=== PATIENT | male | born 1975 | race Two or more races ===

== ENCOUNTER 2021-02-15 14:27 | Emergency (ER) | payer MEDICAID, SELFPAY ==
--- NOTE | ~2021-02-15 | XR_ITS ---
EXAMINATION: XR ABDOMEN KUB CLINICAL INDICATION: Low suspicion free air. COMPARISON: None TECHNIQUE: AP views of the abdomen. FINDINGS: Nonobstructive bowel gas pattern. Mild air and stool throughout the colon. In the right upper quadrant/right lung base there is a 0.4 cm metallic density. Findings may be outside the patient or represent a foreign body. No acute osseous abnormality. XR/XR KUB IMPRESSION: Nonobstructive bowel gas pattern. Mild air and stool throughout the colon. 0.4 cm metallic density overlying the right upper quadrant/right lung base. Findings may be outside the patient or represent a foreign body.
--- NOTE | ~2021-02-15 | US_ITS ---
EXAMINATION: US ABDOMEN LIMITED CLINICAL INFORMATION: Right upper quadrant and epigastric pain. COMPARISON: Abdominal radiograph done earlier the same day. TECHNIQUE: Real-time imaging of the right upper quadrant abdominal viscera. FINDINGS: PANCREAS: Normal. LIVER: Normal. The liver is normal in size. The liver contour is normal. Parenchymal echogenicity is normal. No focal hepatic lesion. There is no intrahepatic biliary duct dilatation seen. GALLBLADDER: Normal. The gallbladder is physiologically distended without evidence of stones, sludge, polyps, wall thickening or pericholecystic fluid. COMMON BILE DUCT: Normal in caliber measuring 0.3 cm in diameter. RIGHT KIDNEY: Normal. No hydronephrosis. No renal calculi or focal parenchymal lesions. The kidney measures 11.2 cm in maximum dimension. FREE FLUID: None. US/US abdomen limited IMPRESSION: Unremarkable examination.
[2021-02-15 15:22] VITALS: BP 163/86; PULSE 79; RESP 18; TEMP 36.9; O2SAT 100; BMI 22.4
[2021-02-15 16:32] LABS: MANUAL DIFF FLAG NO
[2021-02-15 16:41] LABS: Basophils Percent Auto 0.4 % (0-2); Eosinophils Percent Auto 0.1 % (0-4); Hematocrit 48.2 % (42-52); Hemoglobin 16.6 g/dl (14.0-18.0); Imm Gran Abs Auto 0.03 X10*3/uL (0.00-0.03); Imm Gran Pct Auto 0.4 % (0.0-0.4); Lymphocytes Absolute Auto 1.8 X10*3/uL (1.2-4.9); Lymphocytes Percent Auto 23.4 % (20-40); Mean Corpuscular HGB Conc 34.4 g/dl (31.0-36.0); Mean Corpuscular Hemoglobin 32.2 pg (27.0-33.0); Mean Corpuscular Volume 93.4 fL (80-98); Mean Platelet Volume 9.5 fL (9.4-12.4); Monocytes Absolute Auto 0.8 X10*3/uL (0.1-1.2); Monocytes Percent Auto 10.2 % (2-11); Neutrophils Absolute Auto 4.9 X10*3/uL (2.0-8.3); Neutrophils Percent Auto 65.5 % (45-73); Platelet Count 289 X10*3/uL (160-400); Red Blood Count 5.16 X10*6/uL (4.60-5.80); Red Cell Distribution Width 13.2 % (11.0-16.0); White Blood Count 7.5 X10*3/uL (4.8-10.8)
[2021-02-15 16:58] LABS: Alanine Aminotransferase 18 U/L (0-40); Albumin Level 4.7 g/dL (3.5-5.0); Alkaline Phosphatase 76 U/L (39-117); Anion Gap 13 (12-20); Aspartate Amino Transferase 14 U/L (5-37); Bilirubin Direct 0.5 mg/dL (0.0-0.5); Bilirubin Total 1.5 mg/dL (0.0-1.0); Blood Urea Nitrogen 11 mg/dL (9-16); Carbon Dioxide 28 mmol/L (22-29); Chloride 102 mmol/L (96-108); Creatinine Clr Calc Pharmacy 123.4; Estimated Glomerular Filt Rate > 60; Glucose Random 127 mg/dL (60-115); Lipase 23 U/L (8-78); Potassium 4.5 mmol/L (3.3-5.1); Sodium 138 mmol/L (135-145); Total Protein 7.9 g/dL (6.5-8.0)
--- NOTE | 2021-02-15 19:56 | ECG_ITS ---
Test Reason : ABDOMINAL PAIN Blood Pressure : / mmHG Vent. Rate : 067 BPM Atrial Rate : 067 BPM P-R Int : 122 ms QRS Dur : 094 ms QT Int : 358 ms P-R-T Axes : 062 042 008 degrees QTc Int : 378 ms Normal sinus rhythm Nonspecific T wave changes borderline ECG When compared to the previous EKG of No significant changes seen Referred By: Cha Sandoval Electronically Signed By:Jordan Ramírez
[2021-02-15 20:00] VITALS: BP 142/78; PULSE 78; RESP 18; TEMP 36.3; O2SAT 99
--- NOTE | 2021-02-15 20:05 | ED_ITS ---
HPI - Nausea/Vomiting/Diarrhea General Chief complaint: Nausea/Vomiting/Diarrhea Stated complaint: VOMITING Time Seen by Provider: 02/15/21 19:55 Source: patient Mode of arrival: ambulatory Limitations: no limitations History of Present Illness HPI Narrative: Patient comes emergency room complaining of epigastric burning sensation radiating towards the upper chest and right upper quadrant pain. Patient states he has had this condition for 20+ years. However, over last few days, every time he eats something he vomits immediately. Patient reports 15 lb weight loss within a month. Patient denies diarrhea, no fever chills, no blood or black stool. Patient states that he is not taking treatment for gastritis /peptic ulcer. MD elicited complaint: nausea Related Data Previous Rx's Medication Instructions Recorded omeprazole 20 mg PO DAILY #20 cap 02/15/21 Allergies Allergy/AdvReac Type Severity Reaction Status Date / Time No Known Allergies Allergy Verified 02/15/21 15:21 Review of Systems Review of Systems: Constitutional : No Weight loss, No Fever, No Chills, No Night Sweats, No Fatigue, No Malaise ENT/Mouth : No Hearing loss, No Ear Pain, No Nasal Congestion, No Sinus Pain, No Hoarseness, No sore throat, No Rhinorrhea, No Swallowing Difficulty Eyes: No Eye Pain, No Swelling, No Redness, No Foreign Body, No Discharge, No Vision Changes Cardiovascular : No Chest Pain, No SOB, No Dyspnea on Exertion, No Orthopnea, No Edema, No Palpitations Respiratory : No Cough, No Sputum, No Wheezing, No Smoke Exposure, No Dyspnea Gastrointestinal : Complaining of nausea and vomiting, No Diarrhea, No Constipation, complaining of epigastric and right upper quadrant pain, No Hematochezia, No Melena Genitourinary : no irregular bleeding, No Dysuria, No Urinary Frequency, No Hematuria, No Urinary Incontinence, No Urgency, No Flank Pain, No Urinary Flow Changes, No Hesitancy Musculoskeletal : No joint pain, No Myalgias, No Joint Swelling Skin : No Skin Lesions, No rash Neuro : No Weakness, No Numbness, No Paresthesias, No Loss of Consciousness, No Dizziness, No Headache Psych : No Anxiety/Panic, No Depression, No SI/HI/AH/VH, No Social Issues, Heme/Lymph: No Bruising, No Bleeding,No Lymphadenopathy Endocrine : No Polyuria, No Polydipsia, No Temperature Intolerance PMFSH Past Medical History Medical History Patient denies medical problems Social History Social History Advance Directives: No Advance Directives Information Provided: No Physical Exam Vital Signs: Vital Signs: Last Vital Signs Temp 98.4 F 02/15/21 15:22 Pulse 79 02/15/21 15:22 Resp 18 02/15/21 15:22 BP 163/86 H 02/15/21 15:22 Pulse Ox 100 02/15/21 15:22 Body Mass Index 22.4 Appearance: Alert. Oriented X3. No acute distress. Eyes: Pupils equal, round and reactive to light. ENT: Pharynx normal. Neck: Normal inspection. Neck supple. No lymph nodes noted. No crepitus CVS: Normal heart rate and rhythm. Pulses normal. Normal S1 and S2 Respiratory: No respiratory distress. Breath sounds normal. No Wheezing. No rales Abdomen: Soft , tenderness to palpation over epigastric area and right upper quadrant, No rigidity. No distention. Skin: Skin warm and dry. Normal skin color. Normal skin turgor. Extremities: No lower extremity edema. No lower extremity edema. No Lacerations. No Rash Neuro: Oriented X 3. No motor deficit. No sensory deficit. Moving all ext ermities. No slurred speech. Course Course Course Narrative: Patient feeling better, no longer having epigastric pain. KUB and ultrasound negative, labs do not show any acute pathology. I discussed with the patient that he will be started on omeprazole, if patient continues having symptoms, he may benefit from a GI consult, upper endoscopy may be needed. Also, patient may benefit from a urea breath test MDM - Nausea/Vomiting/Diarrhea Lab Data Result diagrams: 02/15/21 16:26 02/15/21 16:26 Labs: Lab Results 02/15/21 02/15/21 02/15/21 Range/Units 16:26 16:26 16:31 WBC 7.5 (4.8-10.8) X10*3/uL RBC 5.16 (4.60-5.80) X10*6/uL Hgb 16.6 (14.0-18.0) g/dl Hct 48.2 (42-52) % MCV 93.4 (80-98) fL MCH 32.2 (27.0-33.0) pg MCHC 34.4 (31.0-36.0) g/dl RDW 13.2 (11.0-16.0) % Plt Count 289 (160-400) X10*3/uL MPV 9.5 (9.4-12.4) fL Immature Gran % (Auto) 0.4 (0.0-0.4) % Neut % (Auto) 65.5 (45-73) % Lymph % (Auto) 23.4 (20-40) % [place] % (Auto) 10.2 (2-11) % Eos % (Auto) 0.1 (0-4) % Baso % (Auto) 0.4 (0-2) % Lymph # (Auto) 1.8 (1.2-4.9) X10*3/uL [place] # (Auto) 0.8 (0.1-1.2) X10*3/uL Eos # (Auto) 0.0 (0.0-0.4) X10*3/uL Baso # (Auto) 0.0 (0.0-0.2) X10*3/uL Abs Immat Gran (auto) 0.03 (0.00-0.03) X10*3/uL Absolute Neuts (auto) 4.9 (2.0-8.3) X10*3/uL Absolute Nucleated RBC 0.000 (0.0-0.012) X10*3/uL Nucleated RBC % (auto) 0.0 (0.0-0.2) /100WBC Sodium 138 (135-145) mmol/L Potassium 4.5 (3.3-5.1) mmol/L Chloride 102 (96-108) mmol/L Carbon Dioxide 28 (22-29) mmol/L Anion Gap 13 (12-20) BUN 11 (9-16) mg/dL Creatinine 0.80 (0.5-1.4) mg/dL Estim Creat Clear Calc 123.4 Estimated GFR > 60 Random Glucose 127 H (60-115) mg/dL Calcium 10.0 (8.4-10.2) mg/dL Total Bilirubin 1.5 H (0.0-1.0) mg/dL Direct Bilirubin 0.5 (0.0-0.5) mg/dL AST 14 (5-37) U/L ALT 18 (0-40) U/L Alkaline Phosphatase 76 (39-117) U/L Troponin I High Sens < 3.5 (<3.5-35.0) ng/L Total Protein 7.9 (6.5-8.0) g/dL Albumin 4.7 (3.5-5.0) g/dL Lipase 23 (8-78) U/L Urine Color Urine Appearance Urine pH (5.0-8.0) Ur Specific [place] (1.005-1.025) Urine Protein (NEG-TRACE) MG/DL Urine Glucose (UA) (NEG) MG/DL Urine Ketones (NEG) MG/DL Urine Blood (NEG) Urine Nitrite (NEG) Ur Leukocyte Esterase (NEG) Urine RBC (0) /HPF Urine WBC (0-4) /HPF Ur Squamous Epith Cells /LPF Urine Bacteria /LPF 02/15/21 Range/Units 20:47 WBC (4.8-10.8) X10*3/uL RBC (4.60-5.80) X10*6/uL Hgb (14.0-18.0) g/dl Hct (42-52) % MCV (80-98) fL MCH (27.0-33.0) pg MCHC (31.0-36.0) g/dl RDW (11.0-16.0) % Plt Count (160-400) X10*3/uL MPV (9.4-12.4) fL Immature Gran % (Auto) (0.0-0.4) % Neut % (Auto) (45-73) % Lymph % (Auto) (20-40) % [place] % (Auto) (2-11) % Eos % (Auto) (0-4) % Baso % (Auto) (0-2) % Lymph # (Auto) (1.2-4.9) X10*3/uL [place] # (Auto) (0.1-1.2) X10*3/uL Eos # (Auto) (0.0-0.4) X10*3/uL Baso # (Auto) (0.0-0.2) X10*3/uL Abs Immat Gran (auto) (0.00-0.03) X10*3/uL Absolute Neuts (auto) (2.0-8.3) X10*3/uL Absolute Nucleated RBC (0.0-0.012) X10*3/uL Nucleated RBC % (auto) (0.0-0.2) /100WBC Sodium (135-145) mmol/L Potassium (3.3-5.1) mmol/L Chloride (96-108) mmol/L Carbon Dioxide (22-29) mmol/L Anion Gap (12-20) BUN (9-16) mg/dL Creatinine (0.5-1.4) mg/dL Estim Creat Clear Calc Estimated GFR Random Glucose (60-115) mg/dL Calcium (8.4-10.2) mg/dL Total Bilirubin (0.0-1.0) mg/dL Direct Bilirubin (0.0-0.5) mg/dL AST (5-37) U/L ALT (0-40) U/L Alkaline Phosphatase (39-117) U/L Troponin I High Sens (<3.5-35.0) ng/L Total Protein (6.5-8.0) g/dL Albumin (3.5-5.0) g/dL Lipase (8-78) U/L Urine Color YELLOW Urine Appearance CLEAR Urine pH 6.5 (5.0-8.0) Ur Specific [place] 1.020 (1.005-1.025) Urine Protein 1+ H (NEG-TRACE) MG/DL Urine Glucose (UA) NEG (NEG) MG/DL Urine Ketones >=80 (NEG) MG/DL Urine Blood NEG (NEG) Urine Nitrite NEG (NEG) Ur Leukocyte Esterase TRACE H (NEG) Urine RBC 0-2 (0) /HPF Urine WBC 0-2 (0-4) /HPF Ur Squamous Epith Cells NONE /LPF Urine Bacteria TRACE /LPF Imaging Data KUB: Radiologist's impression: Nonobstructive bowel gas pattern. Mild air and stool throughout the colon. In the right upper quadrant/right lung base there is a 0.4 cm metallic density. Findings may be outside the patient or represent a foreign body. No acute osseous abnormality. XR/XR KUB IMPRESSION: Nonobstructive bowel gas pattern. Mild air and stool throughout the colon. 0.4 cm metallic density overlying the right upper quadrant/right lung base. Findings may be outside the patient or represent a foreign body. Abdominal ultrasound: Radiologist's impression: [facility] [place], [place] [id number] ReportSigned Patient: Seth Whelan CMR#: [id number]: [id number]:[id number]/Sex: 45 / MADM Date: 02/15/21Loc: [email or web address] Dr: Ordering Physician: TICO LYN MD Date of Service: 02/15/21 Procedure(s): US abdomen limited Accession Number(s): [id number] cc: TICO LYN MD~ EXAMINATION: US ABDOMEN LIMITED CLINICAL INFORMATION: Right upper quadrant and epigastric pain. COMPARISON: Abdominal radiograph done earlier the same day. TECHNIQUE: Real-time imaging of the right upper quadrant abdominal viscera. FINDINGS: PANCREAS: Normal. LIVER: Normal. The liver is normal in size. The liver contour is normal. Parenchymal echogenicity is normal. No focal hepatic lesion. There is no intrahepatic biliary duct dilatation seen. GALLBLADDER: Normal. The gallbladder is physiologically distended without evidence of stones, sludge, polyps, wall thickening or pericholecystic fluid. COMMON BILE DUCT: Normal in caliber measuring 0.3 cm in diameter. RIGHT KIDNEY: Normal. No hydronephrosis. No renal calculi or focal parenchymal lesions. The kidney measures 11.2 cm in maximum dimension. FREE FLUID: None. US/US abdomen limited IMPRESSION: Unremarkable examination. ECG Data Attestation: I personally reviewed and interpreted this ECG as follows: (Normal sinus rhythm, heart rate 67, no ST segment depression or elevation, nonspecific T-wave inversion in lead III, QTC 378) Discharge Plan Discharge Clinical Impression: Gastritis Qualifiers: Gastritis type: other gastritis Chronicity: chronic Gastritis bleeding: without bleeding Qualified Code(s): K29.50 - Unspecified chronic gastritis without bleeding Patient Disposition: Home, Self-Care Instructions: Gastritis (ED), Diet for Stomach Ulcers and Gastritis (ED) Additional Instructions: Please follow-up with your primary care physician tomorrow. If you have any worsening or new symptoms, please return to the emergency room or call 911 Prescriptions: New omeprazole 20 mg capsule,delayed release(DR/EC) 20 mg PO DAILY Qty: 20 RF: 0
--- NOTE | 2021-02-15 20:35 | PC.NURSE ---
Patient away for ultrasound. Plan to medicate upon return to ED.
[2021-02-15 20:36] LABS: Troponin-I High Sensitivity < 3.5 ng/L (<3.5-35.0)
[2021-02-15 20:55] LABS: Glucose Urine UA NEG (NEG); Leukocyte Esterase Urine TRACE (NEG); Nitrite Urine NEG (NEG); PH 6.5 (5.0-8.0); UACC Culture Trigger YES; Urine Blood NEG (NEG); Urine Ketones >=80 MG/DL (NEG); Urine Protein 1+ MG/DL (NEG-TRACE)
[2021-02-15 20:57] LABS: Appearance Urine CLEAR; Color Urine YELLOW
[2021-02-15 21:03] LABS: Bacteria Urine TRACE /LPF; RBC Urine 0-2 /HPF (0); WBC Urine 0-2 /HPF (0-4)
[2021-02-15] MEDS: Magnesium Hydrox/Alum Hydrox 30 ML ORAL.SUSP PO (21:03)
[2021-02-15] MEDS: Famotidine/PF 20 MG/2 ML VIAL IVPUSH (21:03)
[2021-02-15] MEDS: 0.9 % Sodium Chloride 1,000 ML 999 ML IVCONT (21:03)
[2021-02-15] MEDS: Lidocaine HCl Viscous 2 % 15 ML SOLUTION MUCOUS MEM (21:03)
[2021-02-15] MEDS: ondansetron HCL 4 MG/2 ML VIAL IVPUSH (21:03)
[2021-02-15 22:00] VITALS: BP 147/72; PULSE 82; RESP 18; O2SAT 98
== END 2021-02-15 22:26 | disposition home or self-care (01) ==
PROVIDERS: Emergency Provider Emergency Medicine; PCP Internal Medicine
DX: K29.50 Unspecified chronic gastritis without bleeding (principal); R07.9 Chest pain, unspecified; R11.2 Nausea with vomiting, unspecified; R10.13 Epigastric pain; Z79.899 Other long term (current) drug therapy
CPT/HCPCS: 36415; 74018; 76705; 80048; 80076; 81001; 81003; 83690; 84484; 85025; 87086; 93005; 96365; 96375; 99284; J2405

== ENCOUNTER → 2021-05-23 07:58 | Outpatient (BNVA) | payer SELFPAY | PROVIDERS: PCP Internal Medicine ==

== ENCOUNTER 2021-07-10 11:06 | Outpatient (REF) | payer OTHER, SELFPAY ==
[2021-07-10 13:50] LABS: Amylase 90 U/L (28-100); C Reactive Protein 0.57 mg/dL (< or = 0.50); Lipase 29 U/L (8-78)
[2021-07-10 14:11] LABS: TSH reflex Free T4 1.04 uIU/mL (0.32-4.0)
[2021-07-12 16:11] LABS: Transglutaminase Ab IgG <1.0 U/mL; Transglutaminase IgA <1.0 U/mL
== END 2021-07-10 11:07 | disposition home or self-care (01) ==
LOC: HO.LAB 11:06
PROVIDERS: PCP Internal Medicine; Referring Provider Internal Medicine; Visit Provider Nurse Practitioner
DX: K21.9 Gastro-esophageal reflux disease without esophagitis (principal); R63.4 Abnormal weight loss; R11.2 Nausea with vomiting, unspecified; R19.7 Diarrhea, unspecified; Z72.0 Tobacco use
CPT/HCPCS: 36415; 82150; 83516; 83690; 84443; 86140; 99202

== ENCOUNTER 2021-08-22 07:59 | Day surgery (SDC) | payer OTHER, SELFPAY ==
[2021-08-15 15:29] VITALS: BMI 20.3
--- NOTE | 2021-08-21 10:31 | HO.ANESPROP2 ---
Documented by User: Katlin Vyas NP 08/21/21 10:32 HPI - Anesthesia Eval Consult details Narrative: 46yo M for Upper Endoscopy and Colonoscopy [facility] Active Problems Active Problems: All Active Problems (Updated 08/15/21 @ 15:16 by Ashtyn Pandya RN) Weight loss (Acute) Nausea and vomiting (Acute) Not ready to quit smoking (Acute) Chronic GERD (Acute) Past Medical History Medical History Chronic GERD Not ready to quit smoking Family History Family History (Updated 07/10/21 @ 11:22 by Timothy Suh CMA) Maternal Aunt No problems noted. Maternal Aunt No problems noted. Surgical History Surgical History No pertinent past surgical history Social History Social History Housing: House Patient Tobacco Use Status: Current everyday Tobacco user Tobacco use type: Cigar Cigarettes Per Day: 3 Years Smoked: 2 Use of substances other than those prescribed or required for medical reasons: Yes Substance Use Type Other:: advised to hold 3-5 days pre-op Are you DNR?: No Advance Directives Information Provided: Yes (states is on file bit no official form in computer) Advance Directives on File: No Recently lost weight without trying: No Eating poorly because of decreased appetite: No Nutrition Risks: No Nutritional Risk Poor oral hygiene: No service: No Current occupational status: employed Meds Allergies Allergy/AdvReac Type Severity Reaction Status Date / Time No Known Allergies Allergy Verified 05/27/21 20:40 Exam Exam Date and Time: August 21, 2021 1031 Height,Weight and Vital Signs: Height 6 ft Weight 68.039 kg Narrative Narrative: EKG 02/2021 Vent. Rate : 067 BPM ? ? Atrial Rate : 067 BPM ?? P-R Int : 122 ms? QRS Dur : 094 ms ? ? QT Int : 358 ms ? ? ? P-R-T Axes : 062 042 008 degrees ?? QTc Int : 378 ms ? Normal sinus rhythm Nonspecific T wave changes borderline ECG When compared to the previous EKG of No significant changes seen Assessment and Plan Assessment Anesthesia Assessment: Chart Reviewed Documented by User: Sean Fisher 08/22/21 11:01 [facility] Past Medical History Medical History Chronic GERD Not ready to quit smoking Functional capacity: independent ambulation Family History Family History (Updated 07/10/21 @ 11:22 by Timothy Suh CMA) Maternal Aunt No problems noted. Maternal Aunt No problems noted. Family history of problems with anesthesia: No Surgical History Surgical History No pertinent past surgical history History of Problems with Anesthesia: No Social History Social History Housing: House Patient Tobacco Use Status: Current everyday Tobacco user Tobacco use type: Cigar Cigarettes Per Day: 3 Years Smoked: 2 Use of substances other than those prescribed or required for medical reasons: Yes Substance Use Type Other:: advised to hold 3-5 days pre-op Are you DNR?: No Advance Directives Information Provided: Yes (states is on file bit no official form in computer) Advance Directives on File: No Recently lost weight without trying: No Eating poorly because of decreased appetite: No Nutrition Risks: No Nutritional Risk Poor oral hygiene: No service: No Current occupational status: employed Meds Allergies Allergy/AdvReac Type Severity Reaction Status Date / Time No Known Allergies Allergy Verified 05/27/21 20:40 Exam Airway Mallampati Class: II TM Dist: >3cm Neck ROM: Full Loose/Missing/Broken Teeth: Yes Heart: rrr Lungs: bl breath sounds Assessment and Plan Final Anesthetic Review Family History of Problems with Anesthesia: No History of Problems with Anesthesia: No NPO: Yes ASA Class: II Final Preanesthetic Review: Meds/Allgs Chart Reviewed Patient Risk: Intermediate Procedure Risk: Intermediate Anesthetic Plan Anesthetic Plan: MAC: Disposition: Standard PACU
[2021-08-22 08:38] VITALS: BP 123/71; PULSE 62; RESP 16; TEMP 37.3; O2SAT 99
[2021-08-22] MEDS: Lactated Ringers 1,000 ML 100 ML IVCONT (08:48)
--- NOTE | 2021-08-22 09:17 | MHC.SHP ---
Pre-Procedural Eval Section A Date of Service: 08/22/21 Section B Chief Complaint: Abnormal Weight Loss,nausea with vomiting Relevant Family History (Specify if Yes): No Relevant Social History: Tobacco Use Present Medications: see Short Stay Collaborative assessment Medical History: Significant History (GERD) History of Previous Operations: No relevant previous surgery Allergies: Allergies Allergy/AdvReac Type Severity Reaction Status Date / Time No Known Allergies Allergy Verified 05/27/21 20:40 Review of Systems Sugical H&P ROS: Negative: Constitution, Cardiovascular, Respiratory, Neurological, Psychiatric, Hem-Onc, Allergic/Immunologic, Gastrointestinal, Genitourinary, Musculoskeletal, Integumentary, Endocrine and Eyes/Ears/Nose/Throat Exam Surgical H&P Exam: Normal: HEENT, Normal: Heart, Normal: Lungs, Normal: Extremities, Normal: Abdomen, Normal: Skin and Normal: Neurological Plan Diagnosis/Plan: Unchanged I have reviewed the history and physical and performed a pertinent physical examination on my patient. No changes have occurred unless specified.
--- NOTE | 2021-08-22 09:27 | PM.OP ---
Brief Operative Note Date of Service: 08/22/21 Pre-op diagnosis: weight loss, diarrhea, blood in stools, abdo pain Post-op diagnosis: same Procedure: see op note Surgeon: Shamar Garduno MD Anesthesia: MAC Was an Grinder Set Up Operator Thread Tool used for this Procedure?: No Estimated blood loss (mL): 0 Condition: stable Disposition: PACU
--- NOTE | 2021-08-22 09:27 | W.PM.OPN ---
Operative Note Operative Note Date of Service: 08/22/21 Narrative: Operative Information Procedure Description: EGD, Colonoscopy FLEXIBLE TRANSORAL UPPER GASTROINTESTINAL ENDOSCOPY AND COLONOSCOPY PROCEDURE NOTE UPPER ENDOSCOPY Consent: Indications for the procedure and potential complications of bleeding, perforation, reaction to medications and missed diagnosis were discussed with the patient and informed consent was obtained. Instrument: Olympus GIF H 190 J mid size upper endoscope Monitoring: Vital signs and clinical assessment, continuous EKG monitoring, Pulse oximetry, Carbon Dioxide monitoring and blood pressure monitoring were done throughout the procedure. Procedure: The patient was placed in the left lateral decubitis position and pre-procedure medications were administered and a bite block was placed. The endoscope was inserted into the mouth and advanced under direct vision to the third part of duodenum. A careful inspection was made as the upper endoscope was withdrawn including a retroflexed examination of the proximal stomach; Findings and interventions are described below. Findings: Larynx:normal Esophagus: GE junction at 40 cm, diaphragm hiatus at 43 cm, 3 cm sliding hiatal hernia noted. esophagitis noted at GEJ, bx taken Stomach: Granular mucosa with atrophy and scars and erythema with erosion at antrum. Biopsies were obtained. Grade 2 flap valve on retroflexed examination of the cardia. Duodenum: Patchy scattered erythema in duodenal bulb and descending duodenum, bx taken Intervention: Biopsies as noted above COLONOSCOPY Instrument: Olympus variable stiffness pediatric scope 190L Colonoscopy Monitoring: Vital signs and clinical assessment, continuous EKG monitoring, Pulse oximetry, Carbon Dioxide monitoring and blood pressure monitoring were done throughout the procedure. Colon withdrawal time was 30 minutes. Procedure: The patient was placed in the left lateral decubitis position and pre-procedure medications were administered. After a digital rectal examination of the ano-rectum, the video colonoscope was inserted into the rectum and advanced through the colon to the cecum/TI. The colonoscope was slowly withdrawn in a retrograde panoramic fashion and the colon mucosa was carefully examined including a retroflexed view of the rectum. Findings and interventions are described below. Procedure Difficulty: moderate Findings: Terminal Ileum-normal, bx taken random bx taken from right colon which had nodular appearance to the mucosa Cecum: slightly nodular mucosa Ascending Colon: 12-15 mm sessile polyp noted. This was raised with ORISE and then removed using hot snare. Polyp retrieved with net. x 2 clips applied to close defect. mucosa slightly nodular in appearance. Transverse Colon -normal Descending Colon:normal Sigmoid Colon: 7-8 mm sessile polyp removed with forceps Rectum: Retroflexion with small internal hemorrhoids, grade II Anorectum - internal hemorrhoids seen at anal verge on forward view Colon preparation: [place] Bowel Preparation Scale Right colon; 3 Transverse colon: 3 Left colon; 3 (0 = Unprepared colon segment with mucosa not seen due to solid stool that cannot be cleared. 1 = Portion of mucosa of the colon segment seen, but other areas of the colon segment not well seen due to staining, residual stool and/or opaque liquid. 2 = Minor amount of residual staining, small fragments of stool and/or opaque liquid, but mucosa of colon segment seen well. 3 = Entire mucosa of colon segment seen well with no residual staining, small fragments of stool or opaque liquid) Impression and Post Procedure Diagnosis: Endoscopy Findings: duodenitis erosive gastritis esophagitis Colonoscopy Findings: polyps internal hemorrhoids Plan: Await Pathology results Repeat Colonoscopy in 1-2 years or earlier if clinically indicated High fiber diet leaflet avoid straining at stool, epsom salts and sitz bath, anusol supps or cream will await bx, check compliance with PPI Above findings were reviewed with the patient and relevant handouts were provided if indicated.
[2021-08-22] MEDS: Metoclopramide HCl 10 MG/2 ML VIAL 5 MG IVPUSH (11:05)
[2021-08-22 12:15] VITALS: BP 125/76; PULSE 77; RESP 19; TEMP 36.8; O2SAT 98
[2021-08-22 12:32] VITALS: BP 123/70; PULSE 71; RESP 16; O2SAT 100
== END 2021-08-22 13:07 | disposition home or self-care (01) ==
PROVIDERS: PCP Internal Medicine; Visit Provider Internal Medicine Gastroenterology
PROC: (CPT 45385; principal; 2021-08-22 09:20)
DX: R63.4 Abnormal weight loss (principal); D12.2 Benign neoplasm of ascending colon; K63.5 Polyp of colon; K29.60 Other gastritis without bleeding; K29.80 Duodenitis without bleeding; K20.80 Other esophagitis without bleeding; K21.9 Gastro-esophageal reflux disease without esophagitis; K44.9 Diaphragmatic hernia without obstruction or gangrene; K64.1 Second degree hemorrhoids; F17.200 Nicotine dependence, unspecified, uncomplicated
CPT/HCPCS: 45385; 45380; 45381; 43239; 88305; 88341; 88342; J2765

== ENCOUNTER 2021-11-27 10:56 | Outpatient (REF) | payer OTHER, SELFPAY ==
--- NOTE | ~2021-11-27 | XR_ITS ---
EXAMINATION: XR CHEST CLINICAL INFORMATION: Cough. COMPARISON: Chest 01/20/2020 TECHNIQUE: 2 views of the chest were obtained. FINDINGS: No significant abnormality is noted involving the heart, lungs, mediastinum, bony thorax or soft tissues. XR/XR chest 2V IMPRESSION: Unremarkable chest examination.
== END 2021-11-27 10:57 | disposition home or self-care (01) ==
LOC: HO.HMGCX 10:56
PROVIDERS: PCP Internal Medicine; Visit Provider Internal Medicine
DX: R05.8 Other specified cough (principal)
CPT/HCPCS: 71046

== ENCOUNTER 2021-11-28 07:09 | Outpatient (REF) | payer OTHER, SELFPAY ==
[2021-11-28 07:27] LABS: MANUAL DIFF FLAG NO
[2021-11-28 08:02] LABS: Basophils Absolute Auto 0.1 X10*3/uL (0.0-0.2); Basophils Percent Auto 0.9 % (0-2); Eosinophils Absolute Auto 0.1 X10*3/uL (0.0-0.4); Eosinophils Percent Auto 1.9 % (0-4); Hematocrit 45.9 % (42.0-52.0); Imm Gran Abs Auto 0.02 X10*3/uL (0.00-0.03); Imm Gran Pct Auto 0.3 % (0.0-0.4); Lymphocytes Absolute Auto 2.5 X10*3/uL (1.2-4.9); Lymphocytes Percent Auto 37.3 % (20-40); Mean Corpuscular HGB Conc 32.7 g/dl (31.0-36.0); Mean Corpuscular Hemoglobin 31.5 pg (27.0-33.0); Mean Corpuscular Volume 96.4 fL (80.0-98.0); Mean Platelet Volume 9.7 fL (9.4-12.4); Monocytes Absolute Auto 0.9 X10*3/uL (0.1-1.2); Monocytes Percent Auto 13.6 % (2-11); Neutrophils Absolute Auto 3.1 x10*3/uL (2.0-8.3); Platelet Count 303 X10*3/uL (160-400); Red Blood Count 4.76 X10*6/uL (4.60-5.80); Red Cell Distribution Width 13.7 % (11.0-16.0); White Blood Count 6.7 X10*3/uL (4.8-10.8)
[2021-11-28 08:24] LABS: Alanine Aminotransferase 17 U/L (0-40); Anion Gap 12 (12-20); Aspartate Amino Transferase 15 U/L (5-37); Blood Urea Nitrogen 10 mg/dL (9-16); Calcium 10.1 mg/dL (8.4-10.2); Carbon Dioxide 29 mmol/L (22-29); Chloride 104 mmol/L (96-108); Cholesterol 183 mg/dL; Estimated Glomerular Filt Rate > 60; Glucose Fasting 128 mg/dL (60-99); HDL Cholesterol 35 mg/dL; LDL Cholesterol Calculated 129 mg/dl; Potassium 4.9 mmol/L (3.3-5.1); Sodium 140 mmol/L (135-145); Triglycerides 98 mg/dL
== END 2021-11-28 07:10 | disposition home or self-care (01) ==
LOC: HO.LAB 07:09
PROVIDERS: PCP Internal Medicine; Visit Provider Internal Medicine
DX: Z00.01 Encounter for general adult medical examination with abnormal findings (principal); R63.4 Abnormal weight loss; K21.9 Gastro-esophageal reflux disease without esophagitis; R05.8 Other specified cough
CPT/HCPCS: 36415; 80048; 80061; 84450; 84460; 85025

== ENCOUNTER → 2022-01-18 07:29 | Outpatient (BNVA) | payer OTHER, SELFPAY | PROVIDERS: PCP Internal Medicine; Referring Provider Internal Medicine; Visit Provider Nurse Practitioner | DX: K27.9 Peptic ulcer, site unspecified, unspecified as acute or chronic, without hemorrhage or perforation (principal); D21.9 Benign neoplasm of connective and other soft tissue, unspecified | CPT/HCPCS: 99212 ==

== ENCOUNTER → 2022-03-01 07:29 | Outpatient (BNVA) | payer OTHER, SELFPAY | PROVIDERS: PCP Internal Medicine; Referring Provider Internal Medicine; Visit Provider Nurse Practitioner | DX: K27.9 Peptic ulcer, site unspecified, unspecified as acute or chronic, without hemorrhage or perforation (principal); R63.4 Abnormal weight loss; Z68.1 Body mass index [BMI] 19.9 or less, adult; D12.2 Benign neoplasm of ascending colon; K21.9 Gastro-esophageal reflux disease without esophagitis; R10.9 Unspecified abdominal pain; H10.10 Acute atopic conjunctivitis, unspecified eye | CPT/HCPCS: 99212 ==

== ENCOUNTER 2022-03-02 07:06 | Outpatient (REF) | payer OTHER, SELFPAY ==
[2022-03-02 07:17] LABS: MANUAL DIFF FLAG NO
[2022-03-02 07:33] LABS: Basophils Percent Auto 0.4 % (0-2); Eosinophils Absolute Auto 0.1 X10*3/uL (0.0-0.4); Hematocrit 47.5 % (42.0-52.0); Hemoglobin 15.9 g/dl (14.0-18.0); Imm Gran Abs Auto 0.02 X10*3/uL (0.00-0.03); Imm Gran Pct Auto 0.2 % (0.0-0.4); Lymphocytes Absolute Auto 1.9 X10*3/uL (1.2-4.9); Lymphocytes Percent Auto 20.7 % (20-40); Mean Corpuscular HGB Conc 33.5 g/dl (31.0-36.0); Mean Corpuscular Hemoglobin 31.8 pg (27.0-33.0); Mean Platelet Volume 9.5 fL (9.4-12.4); Monocytes Percent Auto 10.7 % (2-11); Platelet Count 282 X10*3/uL (160-400); Red Cell Distribution Width 13.4 % (11.0-16.0); White Blood Count 8.9 X10*3/uL (4.8-10.8)
[2022-03-02 07:56] LABS: Alanine Aminotransferase 16 U/L (0-40); Albumin Level 4.4 g/dL (3.5-5.0); Alkaline Phosphatase 83 U/L (39-117); Anion Gap 11 (12-20); Aspartate Amino Transferase 14 U/L (5-37); Bilirubin Total 0.6 mg/dL (0.0-1.0); Blood Urea Nitrogen 13 mg/dL (9-16); Calcium 9.4 mg/dL (8.4-10.2); Carbon Dioxide 30 mmol/L (22-29); Chloride 103 mmol/L (96-108); Estimated Glomerular Filt Rate > 60; Glucose Random 134 mg/dL (60-115); Potassium 5.3 mmol/L (3.3-5.1); Sodium 139 mmol/L (135-145); Total Protein 7.5 g/dL (6.5-8.0)
[2022-03-02 08:19] LABS: TSH reflex Free T4 2.59 uIU/mL (0.32-4.0)
[2022-03-02 09:25] LABS: Appearance Urine HAZY; Color Urine YELLOW; Glucose Urine UA NEG (NEG); Leukocyte Esterase Urine NEG (NEG); Nitrite Urine NEG (NEG); Specific Gravity - Urine 1.025 (1.005-1.025); UACC Culture Trigger NO; Urine Blood NEG (NEG); Urine Ketones 5 MG/DL (NEG); Urine Protein 1+ MG/DL (NEG-TRACE)
[2022-03-02 09:54] LABS: Squamous Epithelial Cell Urine TRACE /LPF; WBC Urine 0-2 /HPF (0-4)
== END 2022-03-02 07:07 | disposition home or self-care (01) ==
LOC: HO.LAB 07:06
PROVIDERS: PCP Internal Medicine; Visit Provider Nurse Practitioner
DX: R10.9 Unspecified abdominal pain (principal); R63.4 Abnormal weight loss
CPT/HCPCS: 36415; 80053; 81001; 84443; 85025

== ENCOUNTER 2022-03-15 07:16 | Outpatient (REF) | payer OTHER, SELFPAY ==
--- NOTE | ~2022-03-15 | CT_ITS ---
EXAMINATION: CT ABDOMEN AND PELVIS WITHOUT CONTRAST CLINICAL INFORMATION: Abnormal weight loss COMPARISON: Previous limited abdominal ultrasound February 2021 TECHNIQUE: Multidetector volumetric imaging was performed from the superior aspect of the liver through the pubic symphysis. Sagittal and coronal reformatted images were obtained on the technologist's workstation. This CT examination was performed using dose optimization techniques as appropriate, variously including the following: *Automated exposure control *Adjustment of mA and/or kV according to patient size (this includes techniques or standardized protocols for targeted exams where dose is matched to indication/reason for exam; i.e. extremities or head) *Use of iterative reconstruction technique DLP: 362 mGy-cm FINDINGS: LUNG BASES: There is slight heterogeneous attenuation of the lung bases, right greater than left. This may represent hypoventilatory changes. The lung bases are otherwise unremarkable. LIVER, GALLBLADDER, AND BILIARY TREE: The liver is normal in size, shape, and attenuation. No focal hepatic lesion or biliary ductal dilatation is present. The gallbladder is unremarkable with no evidence of radiopaque gallstones, gallbladder wall thickening, or obvious pericholecystic inflammatory changes. PANCREAS: Unremarkable. SPLEEN: Unremarkable. ADRENAL GLANDS: Unremarkable. KIDNEYS AND URETERS: The kidneys are normal in size, shape, and attenuation. No hydronephrosis, hydroureter, or calculi seen. No perinephric stranding. BLADDER: Not optimally distended. GASTROINTESTINAL TRACT: Stool throughout the colon suggestive of constipation. The small and large bowel are otherwise unremarkable. The appendix is unremarkable. There is question of wall thickening of the distal thoracic esophagus and proximal stomach. ABDOMINAL WALL: No significant hernia is appreciated. LYMPH NODES: Normal. VASCULAR: Unremarkable. PELVIC VISCERA: Unremarkable. OSSEOUS STRUCTURES: Unremarkable. CT/CT abdomen pelvis wo con IMPRESSION: Constipation. Question wall thickening of the distal thoracic esophagus and proximal stomach. Fleischner guidelines were followed.
[2022-03-15] MEDS: Barium Sulfate Oral (Mocha) 450 ML ORAL.SUSP 900 ML PO (09:39)
== END 2022-03-15 07:17 | disposition home or self-care (01) ==
LOC: HO.CT 07:16
PROVIDERS: Visit Provider Nurse Practitioner
DX: R63.4 Abnormal weight loss (principal)
CPT/HCPCS: 74176

== ENCOUNTER 2022-04-11 09:19 | Outpatient (REF) | payer OTHER, SELFPAY ==
--- NOTE | ~2022-04-11 | XR_ITS ---
EXAMINATION: XR RIBS, BILATERAL CLINICAL INFORMATION: R07.81 - Pleurodynia COMPARISON: Chest radiographs 11/27/2021, 01/20/2020 TECHNIQUE: Frontal view chest and 6 views of the ribs are obtained for a total of 7 views. FINDINGS: There is no visible rib fracture or rib destructive process. Bony mineralization appears normal. The lungs are clear. There is no pneumothorax, pleural reaction, infiltrate, or groundglass opacity. No effusion. The costophrenic sulci are clear. No free air beneath the diaphragms. There is a old small metallic foreign body again seen overlying the right thoracolumbar region similar to prior radiographs. XR/XR ribs BI min 4V w CXR1V IMPRESSION: -No rib fracture or rib destructive process. -Lungs clear. No pneumothorax, infiltrate, or effusion.
== END 2022-04-11 09:20 | disposition home or self-care (01) ==
LOC: HO.XRAY 09:19
PROVIDERS: PCP Internal Medicine; Visit Provider Nurse Practitioner
DX: R07.81 Pleurodynia (principal); R11.2 Nausea with vomiting, unspecified
CPT/HCPCS: 71111; 99212

== ENCOUNTER 2022-04-17 11:13 | Day surgery (SDC) | payer OTHER, SELFPAY ==
--- NOTE | 2022-04-16 13:03 | HO.ANESPROP2 ---
HPI - Anesthesia Eval Consult details Narrative: 46yo M for Upper Endoscopy and sigmoid PMFSH Active Problems Active Problems: All Active Problems (Updated 04/11/22 @ 08:51 by ROSELYN Qureshi) Rib pain on left side (Acute) Nausea and vomiting (Acute) Tinea corporis (Acute) Allergic conjunctivitis (Acute) Granular cell tumor (Acute) Peptic ulcer disease (Acute) Not ready to quit smoking (Acute) Chronic GERD (Acute) Past Medical History Medical History Chronic GERD Not ready to quit smoking Family History Family History Maternal Aunt No problems noted. Maternal Aunt No problems noted. Family history of problems with anesthesia: No Surgical History Surgical History No pertinent past surgical history History of Problems with Anesthesia: No Social History Social History Housing: House Patient Tobacco Use Status: Current everyday Tobacco user Tobacco use type: Cigar Cigarettes Per Day: 3 Years Smoked: 2 e-Cigarette/Vaping Use: Never Used service: No Current occupational status: employed Cognitive needs: No Hearing needs: No Vision needs: No Meds Allergies Allergy/AdvReac Type Severity Reaction Status Date / Time No Known Allergies Allergy Verified 04/11/22 08:06 Home Medications Medication Instructions Recorded Confirmed Last Taken Type wheat dextrin 3 gram/3.5 gram oral 1.5 g PO BID 01/18/22 01/18/22 Unknown History powder packet (Benefiber Clear Sugar Free(dextrin)) Exam Exam Date and Time: April 16, 2022 1303 Pertinent Lab Results Pertinent Lab Results: Laboratory Tests 03/02/22 03/02/22 07:11 07:11 WBC 8.9 Hgb 15.9 Hct 47.5 Plt Count 282 Sodium 139 Potassium 5.3 H Chloride 103 Carbon Dioxide 30 H BUN 13 Creatinine 0.84 Assessment and Plan Assessment Anesthesia Assessment: Chart Reviewed Final Anesthetic Review Family History of Problems with Anesthesia: No History of Problems with Anesthesia: No
[2022-04-17 11:41] VITALS: BP 114/66; PULSE 78; RESP 15; TEMP 37; O2SAT 99; BMI 17.9
[2022-04-17] MEDS: Lactated Ringers 1,000 ML 100 ML IVCONT (11:55)
--- NOTE | 2022-04-17 12:10 | MHC.SHP ---
Pre-Procedural Eval Section A Date of Service: 04/17/22 Section B Chief Complaint: Nausea with vomiting,pleurodynia Details of Present Illness: weight loss, abn imaging with thickening of esophagus Relevant Family History (Specify if Yes): No Relevant Social History: Tobacco Use Present Medications: see Short Stay Collaborative assessment Medical History: Significant History (Chronic GERD Not ready to quit smoking) History of Previous Operations: No relevant previous surgery Allergies: Allergies Allergy/AdvReac Type Severity Reaction Status Date / Time No Known Allergies Allergy Verified 04/11/22 08:06 Review of Systems Sugical H&P ROS: Negative: Constitution, Cardiovascular, Respiratory, Neurological, Psychiatric, Hem-Onc, Allergic/Immunologic, Gastrointestinal, Genitourinary, Musculoskeletal, Integumentary, Endocrine and Eyes/Ears/Nose/Throat Exam Surgical H&P Exam: Normal: HEENT, Normal: Heart, Normal: Lungs, Normal: Extremities, Normal: Abdomen, Normal: Skin and Normal: Neurological Plan Diagnosis/Plan: Unchanged I have reviewed the history and physical and performed a pertinent physical examination on my patient. No changes have occurred unless specified.
[2022-04-17] MEDS: Sodium Phosphate,Mono-Dibasic 133 ML ENEMA PR (13:11)
--- NOTE | 2022-04-17 13:26 | W.PM.OPN ---
Operative Note Operative Note Date of Service: 04/17/22 Narrative: Operative Information Procedure Description: EGD, Colonoscopy Indication: weight loss, nausea, vomiting Anesthesia: MAC FLEXIBLE TRANSORAL UPPER GASTROINTESTINAL ENDOSCOPY AND COLONOSCOPY PROCEDURE NOTE UPPER ENDOSCOPY Consent: Indications for the procedure and potential complications of bleeding, perforation, reaction to medications and missed diagnosis were discussed with the patient and informed consent was obtained. Instrument: Olympus GIF H 190 J mid size upper endoscope Monitoring: Vital signs and clinical assessment, continuous EKG monitoring, Pulse oximetry, Carbon Dioxide monitoring and blood pressure monitoring were done throughout the procedure. Procedure: The patient was placed in the left lateral decubitis position and pre-procedure medications were administered and a bite block was placed. The endoscope was inserted into the mouth and advanced under direct vision to the third part of duodenum. A careful inspection was made as the upper endoscope was withdrawn including a retroflexed examination of the proximal stomach; Findings and interventions are described below. Findings: Larynx:normal Esophagus: GE junction at 40? cm, diaphragm hiatus at 43 cm, 3 cm sliding hiatal hernia noted. LA grade C erosive esophagitis noted at GEJ, Stomach: Granular mucosa with atrophy and scars and erythema with erosion at mid body. At antrum x2 2 shallow gastric ulcers noted with surrounding edema and inflammation, also erosion at the pyloric outlet. Biopsies were obtained. Grade 2 flap valve on retroflexed examination of the cardia. Duodenum: Patchy scattered erythema in duodenal bulb and descending duodenum with edema and distortion of mucosa, bx taken Intervention: Biopsies as noted above Sigmoidoscopy Instrument: Olympus GIF H 190 J mid size upper endoscope sigmoidoscopy Monitoring: Vital signs and clinical assessment, continuous EKG monitoring, Pulse oximetry, Carbon Dioxide monitoring and blood pressure monitoring were done throughout the procedure. Procedure: The patient was placed in the left lateral decubitis position and pre-procedure medications were administered. After a digital rectal examination of the ano-rectum, the video colonoscope was inserted into the rectum and advanced through the colon to the transverse colon The colonoscope was slowly withdrawn in a retrograde panoramic fashion and the colon mucosa was carefully examined. Findings and interventions are described below. Procedure Difficulty: easy Findings: Transverse Colon -normal Descending Colon:normal Sigmoid Colon: normal Rectum: Retroflexion with medium sized inflammed internal hemorrhoids, grade II Anorectum - small external hemorrhoid noted Impression and Post Procedure Diagnosis: Endoscopy Findings: gastric erosions and ulcers erosive esophagitis duodenitis Sigmoidoscopy Findings: internal and external hemorrhoids Plan: Await Pathology results, if h pylori pos then treat check compliance with PPI, if not taking will need to take, can add carafate as well, and anti emetic High fiber diet leaflet avoid straining at stool, epsom salts and sitz bath, anusol supps or cream Above findings were reviewed with the patient and relevant handouts were provided if indicated.
[2022-04-17 13:50] VITALS: BP 121/73; PULSE 56; RESP 16; TEMP 36.4; O2SAT 99
[2022-04-17 14:27] VITALS: BP 131/82; PULSE 75; RESP 18; TEMP 36.1; O2SAT 100
== END 2022-04-17 15:09 | disposition home or self-care (01) ==
PROVIDERS: PCP Internal Medicine; Visit Provider Internal Medicine Gastroenterology
PROC: 0DJ08ZZ Inspection of Upper Intestinal Tract, Via Natural or Artificial Opening Endoscopic (ICD-10-PCS; CPT 43235; principal; 2022-04-17 13:10)
DX: K62.5 Hemorrhage of anus and rectum (principal); K64.1 Second degree hemorrhoids; K64.4 Residual hemorrhoidal skin tags; R63.4 Abnormal weight loss; Z68.1 Body mass index [BMI] 19.9 or less, adult; K29.50 Unspecified chronic gastritis without bleeding; K29.80 Duodenitis without bleeding; K25.9 Gastric ulcer, unspecified as acute or chronic, without hemorrhage or perforation; K31.89 Other diseases of stomach and duodenum; K44.9 Diaphragmatic hernia without obstruction or gangrene; K21.9 Gastro-esophageal reflux disease without esophagitis; R73.01 Impaired fasting glucose; R07.81 Pleurodynia; Z79.899 Other long term (current) drug therapy; H10.10 Acute atopic conjunctivitis, unspecified eye; F17.290 Nicotine dependence, other tobacco product, uncomplicated
CPT/HCPCS: 45330; 43239; 88305; 88342

== ENCOUNTER → 2022-04-25 09:05 | Outpatient (BNVA) | payer OTHER, SELFPAY | PROVIDERS: PCP Nurse Practitioner; Visit Provider Nurse Practitioner | DX: R11.2 Nausea with vomiting, unspecified (principal); D21.9 Benign neoplasm of connective and other soft tissue, unspecified; K27.9 Peptic ulcer, site unspecified, unspecified as acute or chronic, without hemorrhage or perforation; K21.9 Gastro-esophageal reflux disease without esophagitis; K59.00 Constipation, unspecified; R07.81 Pleurodynia | CPT/HCPCS: 99212 ==

== ENCOUNTER → 2022-05-23 10:14 | Outpatient (BNVA) | payer OTHER, SELFPAY | PROVIDERS: PCP Internal Medicine; Visit Provider Nurse Practitioner | DX: R63.6 Underweight (principal); Z68.1 Body mass index [BMI] 19.9 or less, adult; K21.9 Gastro-esophageal reflux disease without esophagitis; K27.9 Peptic ulcer, site unspecified, unspecified as acute or chronic, without hemorrhage or perforation; D21.9 Benign neoplasm of connective and other soft tissue, unspecified; F32.A Depression, unspecified; Z79.899 Other long term (current) drug therapy | CPT/HCPCS: 99212 ==

== ENCOUNTER 2022-06-01 12:14 | Inpatient (IN) | payer OTHER, SELFPAY ==
--- NOTE | ~2022-06-01 | CT_ITS ---
EXAMINATION: CT ABDOMEN AND PELVIS WITHOUT CONTRAST CLINICAL INFORMATION: Abdominal pain, vomiting blood. COMPARISON: CT abdomen/pelvis 03/15/2022. TECHNIQUE: Multidetector volumetric imaging was performed from the superior aspect of the liver through the pubic symphysis. Sagittal and coronal reformatted images were obtained on the technologist's workstation. This CT examination was performed using dose optimization techniques as appropriate, variously including the following: *Automated exposure control *Adjustment of mA and/or kV according to patient size (this includes techniques or standardized protocols for targeted exams where dose is matched to indication/reason for exam; i.e. extremities or head) *Use of iterative reconstruction technique DLP: 372 mGy-cm FINDINGS: LUNG BASES: Mosaic attenuation of the lung parenchyma. No focal consolidation or pleural effusion. LIVER, GALLBLADDER, AND BILIARY TREE: The liver is normal in size, shape, and attenuation. No focal hepatic lesion or biliary ductal dilatation is present. The gallbladder is unremarkable with no evidence of radiopaque gallstones, gallbladder wall thickening, or obvious pericholecystic inflammatory changes. PANCREAS: Unremarkable. SPLEEN: Unremarkable. ADRENAL GLANDS: Unremarkable. KIDNEYS AND URETERS: The kidneys are normal in size, shape, and attenuation. No hydronephrosis, hydroureter, or calculi seen. No perinephric stranding. BLADDER: Unremarkable. GASTROINTESTINAL TRACT: Limited evaluation of the bowel in the absence of oral and intravenous contrast and also in the presence of decreased intra-abdominal/mesenteric fat. Accounting for limitations, significant wall thickening of the ascending colon and hepatic flexure is noted. There is no disproportional dilatation of the small bowel to suspect a bowel obstruction. ABDOMINAL WALL: No significant hernia is appreciated. LYMPH NODES: Very limited examination due to paucity of intra-abdominal fat and lack of IV contrast. No bulky lymphadenopathy. VASCULAR: Limited evaluation. The abdominal aorta is of normal diameter. Atherosclerotic disease. PELVIC VISCERA: Enlarged prostate with coarse calcifications. OSSEOUS STRUCTURES: No acute or aggressive appearing osseous abnormalities. CT/CT abdomen pelvis wo IV con IMPRESSION: Limited noncontrast examination. Significant wall thickening of the ascending colon and hepatic flexure which could be associated with colitis or an underlying neoplasm. Recommend colorectal specialist consultation and if not recently obtained, further evaluation with colonoscopy. Enlarged prostate.
[2022-06-01 13:28] VITALS: BP 135/84; PULSE 113; RESP 16; TEMP 37.2; O2SAT 98; BMI 17.9
[2022-06-01 14:05] LABS: MANUAL DIFF FLAG NO
[2022-06-01 14:06] LABS: Basophils Absolute Auto 0.1 X10*3/uL (0.0-0.2); Basophils Percent Auto 0.3 % (0-2); Imm Gran Abs Auto 0.08 X10*3/uL (0.00-0.03); Imm Gran Pct Auto 0.5 % (0.0-0.4); Lymphocytes Absolute Auto 1.3 X10*3/uL (1.2-4.9); Lymphocytes Percent Auto 7.3 % (20-40); Mean Corpuscular HGB Conc 34.9 g/dl (31.0-36.0); Mean Corpuscular Hemoglobin 32.3 pg (27.0-33.0); Mean Corpuscular Volume 92.5 fL (80.0-98.0); Mean Platelet Volume 9.2 fL (9.4-12.4); Monocytes Absolute Auto 1.2 X10*3/uL (0.1-1.2); Monocytes Percent Auto 6.9 % (2-11); Neutrophils Absolute Auto 14.9 x10*3/uL (2.0-8.3); Platelet Count 298 X10*3/uL (160-400); Red Blood Count 4.65 X10*6/uL (4.60-5.80); Red Cell Distribution Width 13.3 % (11.0-16.0); White Blood Count 17.5 X10*3/uL (4.8-10.8)
[2022-06-01 14:21] LABS: Alanine Aminotransferase 23 U/L (0-40); Albumin Level 4.2 g/dL (3.5-5.0); Alkaline Phosphatase 90 U/L (39-117); Anion Gap 19 (12-20); Aspartate Amino Transferase 14 U/L (5-37); Bilirubin Total 1.8 mg/dL (0.0-1.0); Blood Urea Nitrogen 11 mg/dL (9-16); Calcium 9.4 mg/dL (8.4-10.2); Carbon Dioxide 19 mmol/L (22-29); Chloride 101 mmol/L (96-108); Creatinine Clr Calc Pharmacy 107.4; Estimated Glomerular Filt Rate > 60; Glucose Random 200 mg/dL (60-115); Potassium 3.8 mmol/L (3.3-5.1); Sodium 135 mmol/L (135-145); Total Protein 7.4 g/dL (6.5-8.0)
[2022-06-01 14:22] LABS: IDNOW Serial# 55D5AD1C
[2022-06-01 14:23] LABS: COVID-19 Test Negative (Negative)
[2022-06-01 20:48] VITALS: BP 138/81; PULSE 117; RESP 18; TEMP 36.7; O2SAT 98
--- NOTE | 2022-06-01 21:39 | ED.ABDPAIN ---
HPI - Abdominal Pain General Chief Complaint: Abdominal Pain Stated Complaint: Abdominal Pain Vomiting Time Seen by Provider: 06/01/22 14:13 History of Present Illness HPI narrative: Patient is a 47-year-old male presents today with having nausea vomiting diarrhea. Positive generalized malaise weakness. Patient has been having GI symptoms for a long time. Had a previous CT scan had previous endoscopy and colonoscopy done in the past. Patient had previous endoscopy done shows esophagitis, previous sigmoidoscopy shows internal hemorrhoids. Been noticing increasing diarrhea. Nausea vomiting. Been on multiple medication for reflux. Complaining of low weight loss. Now having abdominal pain diffuse. Generalized malaise. Getting worse in the last couple days. No recent travel. No recent antibiotics. Related Data Home Medications Medication Instructions Recorded Confirmed wheat dextrin 3 gram/3.5 gram oral 1.5 g PO BID 01/18/22 01/18/22 powder packet (Benefiber Clear Sugar Free(dextrin)) Previous Rx's Medication Instructions Recorded diclofenac sodium 1 % topical gel 2 g topical QID PRN elbow pain 11/29/21 #100 grams ketotifen fumarate 0.025 % (0.035 1 drp ophthalmic (eye) BID #5 mL 03/01/22 %) eye drops (Allergy Eye (ketotifen)) terbinafine HCl 1 % topical cream 1 appl topical BID 2 weeks #30 03/07/22 grams ondansetron 4 mg disintegrating 4 mg PO Q6H #30 tabs 04/02/22 tablet metoclopramide HCl 10 mg tablet 10 mg PO .tidac #90 tabs 04/11/22 (Reglan) lansoprazole 30 mg capsule,delayed 30 mg PO BID #90 caps 04/17/22 release bisacodyl 5 mg tablet,delayed 10 mg PO BEDTIME 30 days #60 tabs 04/25/22 release (Dulcolax (bisacodyl)) sucralfate 1 gram tablet (Carafate) 2 g PO BID #120 tabs 04/25/22 megestrol 40 mg tablet 40 mg PO DAILY #30 tabs 05/23/22 mirtazapine 15 mg tablet 15 mg PO BEDTIME #30 tabs 05/23/22 Allergies Allergy/AdvReac Type Severity Reaction Status Date / Time No Known Allergies Allergy Verified 05/23/22 10:30 Review of Systems Review of Systems Positive nausea vomiting diarrhea Yes all other systems are reviewed and are negative [facility] Past Medical History Attestation statement: The following information was validated with the patient. Medical History Chronic GERD Not ready to quit smoking Surgical History Hx of colonoscopy No pertinent past surgical history Family History Family History Maternal Aunt No problems noted. Maternal Aunt No problems noted. Social History Social History Housing: House Patient Tobacco Use Status: Current everyday Tobacco user Tobacco use type: Cigar Cigarettes Per Day: 3 Years Smoked: 2 e-Cigarette/Vaping Use: Never Used Advance Directives: No service: No Current occupational status: employed Cognitive needs: No Hearing needs: No Vision needs: No Physical Exam ED Vital Signs: Vital Signs - 24 hr 06/01/22 13:28 06/01/22 20:48 Temperature 98.9 F 98.1 F Pulse Rate 113 H 117 H Respiratory Rate 16 18 Blood Pressure 135/84 138/81 Pulse Oximetry 98 98 Oxygen Delivery Method Room Air Room Air BMI result Body Mass Index 17.9 Appearance: Alert. Oriented X3. No acute distress. Eyes: Pupils equal, round and reactive to light. ENT: Pharynx normal. Neck: Normal inspection. Neck supple. No lymph nodes noted. No crepitus CVS: Normal heart rate and rhythm. Pulses normal. Normal S1 and S2 Respiratory: No respiratory distress. Breath sounds normal. No Wheezing. No rales Abdomen: Soft and nontender. No rigidity. No distention. good BS x4 Skin: Skin warm and dry. Normal skin color. Normal skin turgor. Extremities: No lower extremity edema. Neurovascular intact to all extremities. No Lacerations. No Rash Neuro: Oriented X 3. No motor deficit. No sensory deficit. Moving all extermities. No slurred speech MDM - Abdominal Pain MDM Narrative Medical decision making narrative: Patient white count 17. CT scan abdomen pelvis suggested of colitis. Patient has been having diarrhea GI symptom loss and weight. Will get cultures we will go ahead and give IV antibiotics. Will hydrate aggressively. Patient's potassium was in the 2.5 range repeat p.o. and IV. Patient's case discussed with the hospitalist team. Being admitted. Differential Diagnosis Differential diagnosis: Likely abdominal pain, bowel perforation, diverticulitis, gastroenteritis, gastritis, pancreatitis and peptic ulcer disease Differential diagnosis narrative:: Colitis Medical Records Attestation: I reviewed the patient's medical records. Lab Data Attestation: I reviewed the patient's lab results. Result diagrams: 06/01/22 14:00 06/01/22 14:00 Labs: Lab Results 06/01/22 06/01/22 06/01/22 Range/Units 14:00 14:00 14:00 WBC 17.5 H (4.8-10.8) X10*3/uL RBC 4.65 (4.60-5.80) X10*6/uL Hgb 15.0 (14.0-18.0) g/dl Hct 43.0 (42.0-52.0) % MCV 92.5 (80.0-98.0) fL MCH 32.3 (27.0-33.0) pg MCHC 34.9 (31.0-36.0) g/dl RDW 13.3 (11.0-16.0) % Plt Count 298 (160-400) X10*3/uL MPV 9.2 L (9.4-12.4) fL Immature Gran % (Auto) 0.5 H (0.0-0.4) % Neut % (Auto) 85.0 H (45-73) % Lymph % (Auto) 7.3 L (20-40) % [place] % (Auto) 6.9 (2-11) % Eos % (Auto) 0.0 (0-4) % Baso % (Auto) 0.3 (0-2) % Lymph # (Auto) 1.3 (1.2-4.9) X10*3/uL [place] # (Auto) 1.2 (0.1-1.2) X10*3/uL Eos # (Auto) 0.0 (0.0-0.4) X10*3/uL Baso # (Auto) 0.1 (0.0-0.2) X10*3/uL Abs Immat Gran (auto) 0.08 H (0.00-0.03) X10*3/uL Absolute Neuts (auto) 14.9 H (2.0-8.3) x10*3/uL Absolute Nucleated RBC 0.000 (0.0-0.012) X10*3/uL Nucleated RBC % (auto) 0.0 (0.0-0.2) /100WBC Sodium 135 (135-145) mmol/L Potassium 3.8 D (3.3-5.1) mmol/L Chloride 101 (96-108) mmol/L Carbon Dioxide 19 L (22-29) mmol/L Anion Gap 19 (12-20) BUN 11 (9-16) mg/dL Creatinine 0.72 (0.5-1.4) mg/dL Estim Creat Clear Calc 107.4 Estimated GFR > 60 Random Glucose 200 H D (60-115) mg/dL Calcium 9.4 (8.4-10.2) mg/dL Total Bilirubin 1.8 H (0.0-1.0) mg/dL AST 14 (5-37) U/L ALT 23 (0-40) U/L Alkaline Phosphatase 90 (39-117) U/L Total Protein 7.4 (6.5-8.0) g/dL Albumin 4.2 (3.5-5.0) g/dL COVID-19 (JOHN) Negative (Negative) COVID-19 Clin Com See Note Discharge Plan Discharge Clinical Impression: Colitis Patient Disposition: Admitted As Inpatient
--- NOTE | 2022-06-01 21:41 | PM.IMHP ---
History of Present Illness Date of Service: 06/01/22 Chief Complaint: Diarrhea 47-year-old male with a past medical history of peptic ulcer disease, GERD, colonic polyps, tobacco dependence, depression, internal hemorrhoids presented to the hospital today with a chief complaint of nausea/abdominal pain and diarrhea. Patient mentioned that on Friday he had changes food, since then he has been having nausea vomiting, diarrhea with abdominal pain. Abdominal pain severe in intensity, 10/10, crampy in nature, slightly improves after bowel movement. Mentions he has history of peptic ulcer disease and has had endoscopy and colonoscopy. Reports he has lost significant weight loss in past 4 months. Denies any fever chills cough or sputum production. Denies any chest pain or palpitations. Reports decreased oral intake. Review of all other systems is negative except mentioned above ER course: Per ER team patient CT scan consistent with colitis. Given IV antibiotics. Admitted to the hospital for further management PMFSH Medical History Chronic GERD Not ready to quit smoking Family History Maternal Aunt No problems noted. Maternal Aunt No problems noted. Surgical History Hx of colonoscopy No pertinent past surgical history Social History Housing: House Patient Tobacco Use Status: Current everyday Tobacco user Tobacco use type: Cigar Cigarettes Per Day: 3 Years Smoked: 2 e-Cigarette/Vaping Use: Never Used Advance Directives: No service: No Current occupational status: employed Cognitive needs: No Hearing needs: No Vision needs: No Meds Allergies Allergy/AdvReac Type Severity Reaction Status Date / Time No Known Allergies Allergy Verified 05/23/22 10:30 Active Medications: Current Medications Ceftriaxone Sodium 1 gm/ (Sodium Chloride) 50 mls @ 100 mls/hr IV ONCE ONE Stop: 06/01/22 22:06 Metronidazole (Flagyl) 500 mg in 100 mls @ 100 mls/hr IV ONCE ONE Stop: 06/01/22 22:36 Sodium Chloride (Ns) 1,000 mls @ 999 mls/hr IV .Q1H1M LATOSHA Stop: 06/01/22 22:45 Sodium Chloride (Ns) 1,000 mls @ 999 mls/hr IV .Q1H1M LATOSHA Stop: 06/01/22 22:45 Home Medications Medication Instructions Recorded Confirmed Last Taken Type wheat dextrin 3 gram/3.5 gram oral 1.5 g PO BID 01/18/22 01/18/22 Unknown History powder packet (Benefiber Clear Sugar Free(dextrin)) Physical Exam Vital Signs and Narrative: Vital Signs: Last Vital Signs Temp 98.1 F 06/01/22 20:48 Pulse 117 H 06/01/22 20:48 Resp 18 06/01/22 20:48 BP 138/81 06/01/22 20:48 Pulse Ox 98 06/01/22 20:48 O2 Del Method 06/01/22 20:48 BMI result Body Mass Index 17.9 Gen: Appears be in no acute distress HEENT: NCAT, Moist mucosa. Pulmonary: Vesicular breath sounds, fair air entry CVS: Normal S1-S2 Abdomen: BS+, Soft, mildly tender diffusely, no guarding no rigidity Extremities: Warm well perfused Neuro: Alert and awake. Results Labs CBC and Chem 7: 06/01/22 14:00 06/01/22 14:00 Labs: Laboratory Results - last 24 hr 06/01/22 06/01/22 06/01/22 14:00 14:00 14:00 MCV 92.5 MCH 32.3 MCHC 34.9 RDW 13.3 Plt Count 298 MPV 9.2 L Immature Gran % (Auto) 0.5 H Neut % (Auto) 85.0 H Lymph % (Auto) 7.3 L [place] % (Auto) 6.9 Eos % (Auto) 0.0 Baso % (Auto) 0.3 Lymph # (Auto) 1.3 [place] # (Auto) 1.2 Eos # (Auto) 0.0 Baso # (Auto) 0.1 Abs Immat Gran (auto) 0.08 H Absolute Neuts (auto) 14.9 H Absolute Nucleated RBC 0.000 Nucleated RBC % (auto) 0.0 Anion Gap 19 Estim Creat Clear Calc 107.4 Estimated GFR > 60 Random Glucose 200 H D Calcium 9.4 Total Bilirubin 1.8 H AST 14 ALT 23 Alkaline Phosphatase 90 Total Protein 7.4 Albumin 4.2 COVID-19 (JOHN) Negative COVID-19 Clin Com See Note Imaging Radiologist's Impressions: Impressions Abdomen/Pelvis CT 06/01/22 18:39 IMPRESSION: Limited noncontrast examination. Significant wall thickening of the ascending colon and hepatic flexure which could be associated with colitis or an underlying neoplasm. Recommend colorectal specialist consultation and if not recently obtained, further evaluation with colonoscopy. Enlarged prostate. Assessment and Plan (1) Colitis: Status: Acute Plan 47-year-old male with a past medical history of peptic ulcer disease, GERD, tobacco dependence, depression presented to the hospital today with a chief complaint of nausea , abdominal pain and diarrhea. Noted to have colitis. Admitted for further management. Colitis: Patient denies any recent antibiotic use. CT abdomen showed findings consistent with colitis and possible neoplasm at the hepatic flexure. Will send CEA. Patient has history of colonic polyps. GI consult Continue IV ceftriaxone and Flagyl NPO Gentle IV fluids History of tobacco dependence: Counseled on smoking cessation. Peptic ulcer disease/erosive gastritis: PPI DVT prophylaxis: Subcu heparin Code status: Full code Quality Stroke Does the patient have a stroke diagnosis?: No VTE Prior VTE?: No VTE Risk Level:: Medical - moderate - high VTE Device Contraindication: Treatment Not Indicated VTE Drug Contraindication: N/A - Med Ordered
[2022-06-01] MEDS: 0.9 % Sodium Chloride 1,000 ML 999 ML IV ×2 (22:10)
[2022-06-01] MEDS: HYDROmorphone HCl 0.5 MG/0.5 ML SYRINGE IVPUSH (22:47)
[2022-06-01] MEDS: Enoxaparin Sodium 40 MG/0.4 ML SYRINGE SUBCUT (22:47)
[2022-06-01] MEDS: metroNIDAZOLE/NS 500 MG/100 ML PIGGYBACK 100 MG IV (22:47)
--- NOTE | 2022-06-01 23:06 | PC.NURSE ---
IV Saline running at this time, holding D5 fluids until Saline is finished.
[2022-06-01 23:12] VITALS: BP 134/83; PULSE 100; RESP 17; O2SAT 98
[2022-06-01 23:21] LABS: Appearance Urine Clear; Color Urine Dark Yellow; Glucose Urine UA 250 mg/dL (Negative); Leukocyte Esterase Urine Trace (Negative); Nitrite Urine Negative (Negative); PH 5.5 (5.0-9.0); Specific Gravity - Urine >= 1.030 (1.005-1.025); UMIC TRIGGER UA YES; Urine Blood Negative (Negative); Urine Ketones Trace mg/dL (Negative); Urine Protein 30 (1+) mg/dL (Neg-Trace)
[2022-06-01 23:23] LABS: Bacteria Urine None Seen (None Seen); Hyaline Casts Urine 0-2 /LPF (0-2); Squamous Epithelial Cell Urine 0-2 /HPF (0-2); WBC Urine 0-5 /HPF (0-5)
[2022-06-02] MEDS: Dextrose 5 % and 0.45 % NaCl 1,000 ML 100 ML IVCONT ×3 (00:57→15:00)
[2022-06-02] MEDS: Acetaminophen 325 MG TABLET 650 MG PO (01:34)
[2022-06-02] MEDS: metroNIDAZOLE/NS 500 MG/100 ML PIGGYBACK 100 MG IV ×3 (06:50→22:16)
[2022-06-02 07:05] LABS: Basophils Absolute Auto 0.1 X10*3/uL (0.0-0.2); Basophils Percent Auto 0.3 % (0-2); Eosinophils Percent Auto 0.1 % (0-4); Hematocrit 39.2 % (42.0-52.0); Hemoglobin 13.4 g/dl (14.0-18.0); Imm Gran Abs Auto 0.14 X10*3/uL (0.00-0.03); Imm Gran Pct Auto 0.6 % (0.0-0.4); Lymphocytes Absolute Auto 2.5 X10*3/uL (1.2-4.9); Lymphocytes Percent Auto 11.5 % (20-40); MANUAL DIFF FLAG SCAN; Mean Corpuscular HGB Conc 34.2 g/dl (31.0-36.0); Mean Corpuscular Hemoglobin 31.8 pg (27.0-33.0); Mean Corpuscular Volume 92.9 fL (80.0-98.0); Monocytes Absolute Auto 2.9 X10*3/uL (0.1-1.2); Monocytes Percent Auto 13.3 % (2-11); Neutrophils Absolute Auto 16.3 x10*3/uL (2.0-8.3); Neutrophils Percent Auto 74.2 % (45-73); Platelet Count 296 X10*3/uL (160-400); Red Blood Count 4.22 X10*6/uL (4.60-5.80); Red Cell Distribution Width 13.2 % (11.0-16.0); SCAN SMEAR FLAG 1; White Blood Count 21.9 X10*3/uL (4.8-10.8)
[2022-06-02] MEDS: ondansetron HCL 4 MG/2 ML VIAL IVPUSH (07:22)
[2022-06-02] MEDS: HYDROmorphone HCl 0.5 MG/0.5 ML SYRINGE IVPUSH ×2 (07:22→12:41)
[2022-06-02] MEDS: Famotidine/PF 20 MG/2 ML VIAL IVPUSH (07:23)
[2022-06-02 07:30] VITALS: BP 133/70; PULSE 91; RESP 15; TEMP 36.6; O2SAT 98
[2022-06-02] MEDS: 0.9 % Sodium Chloride Flush 3 ML SYRINGE IVFLUSH (07:32)
[2022-06-02 07:37] LABS: Anion Gap 17 (12-20); Blood Urea Nitrogen 11 mg/dL (9-16); Calcium 8.9 mg/dL (8.4-10.2); Carbon Dioxide 21 mmol/L (22-29); Chloride 102 mmol/L (96-108); Creatinine Clr Calc Pharmacy 133.3; Estimated Glomerular Filt Rate > 60; Glucose Random 120 mg/dL (60-115); Potassium 4.1 mmol/L (3.3-5.1); Sodium 136 mmol/L (135-145)
[2022-06-02 08:30] LABS: SLIDE REVIEW VERIFIED
--- NOTE | 2022-06-02 09:35 | HO.PM.IMPN ---
Subjective Subjective Date of Service: 06/02/22 Interval History: Seen in f/u for abdominal pain, coliitis interval history: still with abd pain, diarrhea, nofever Review of Systems abd pain diarrhea Physical Exam Vital Signs: Vital Signs: Last Vital Signs Temp 98 F 06/02/22 07:30 Pulse 91 06/02/22 07:30 Resp 15 06/02/22 07:30 BP 133/70 06/02/22 07:30 Pulse Ox 98 06/02/22 07:30 O2 Del Method 06/02/22 07:30 BMI result Body Mass Index 17.9 Const: Other: General: AO X 3, no acute distress Resp: CTA bilateral CVS: S1,S2,RRR GI: +BS, diffuse tenderenes, voluntary guarding, no rebound, no distention Skin: No rash Neuro: motor grossly intact Psych: appropriate affect Objective Data Active Medications Acetaminophen (Acetaminophen 325 Mg Tablet) 650 mg PO Q6H PRN PRN Reason: Pain, Mild (Pain Scale 1-3) Last Admin: 06/02/22 01:34 Dose: 650 mg Documented By: LIV Enoxaparin Sodium (Enoxaparin Sodium 40 Mg/0.4 Ml Syringe) 40 mg SUBCUT Q24H [facility] Last Admin: 06/01/22 22:47 Dose: 40 mg Documented By: LIV Famotidine (Famotidine/Pf 20 Mg/2 Ml Vial) 20 mg IVPUSH DAILY [facility] Last Admin: 06/02/22 07:23 Dose: 20 mg Documented By: NAHOMI Hydromorphone HCl (Hydromorphone Hcl 0.5 Mg/0.5 Ml Syringe) 0.5 mg IVPUSH Q4H PRN; Protocol PRN Reason: Breakthrough Pain Last Admin: 06/02/22 07:22 Dose: 0.5 mg Documented By: NAHOMI Dextrose/Sodium Chloride (D51/2ns) 1,000 mls @ 100 mls/hr IVCONT .Q10H [facility] Last Admin: 06/02/22 07:25 Dose: 100 mls/hr Documented By: NAHOMI Ceftriaxone Sodium 1 gm/ (Sodium Chloride) 50 mls @ 100 mls/hr IV Q24H [facility] Metronidazole (Flagyl) 500 mg in 100 mls @ 100 mls/hr IV Q8H [facility] Last Admin: 06/02/22 06:50 Dose: 100 mls/hr Documented By: LIV Ondansetron HCl (Ondansetron Hcl 4 Mg/2 Ml Vial) 4 mg IVPUSH Q8H PRN PRN Reason: Nausea and Vomiting Last Admin: 06/02/22 07:22 Dose: 4 mg Documented By: NAHOMI Senna (Sennosides 8.6 Mg Tablet) 17.2 mg PO BEDTIME PRN PRN Reason: Constipation Sodium Chloride (0.9 % Sodium Chloride Flush 3 Ml Syringe) 3 ml IVFLUSH QSWAFT [facility] Last Admin: 06/02/22 07:32 Dose: 3 ml Documented By: NAHOMI Labs CBC & Chem 7: 06/02/22 05:56 06/02/22 05:56 Labs: Laboratory Results - last 24 hr 06/01/22 06/01/22 06/01/22 14:00 14:00 14:00 MCV 92.5 MCH 32.3 MCHC 34.9 RDW 13.3 Plt Count 298 MPV 9.2 L Immature Gran % (Auto) 0.5 H Neut % (Auto) 85.0 H Lymph % (Auto) 7.3 L Cook % (Auto) 6.9 Eos % (Auto) 0.0 Baso % (Auto) 0.3 Lymph # (Auto) 1.3 Cook # (Auto) 1.2 Eos # (Auto) 0.0 Baso # (Auto) 0.1 Abs Immat Gran (auto) 0.08 H Absolute Neuts (auto) 14.9 H Absolute Nucleated RBC 0.000 Nucleated RBC % (auto) 0.0 Smear Tech's Comments Anion Gap 19 Estim Creat Clear Calc 107.4 Estimated GFR > 60 Random Glucose 200 H D Lactic Acid Calcium 9.4 Total Bilirubin 1.8 H AST 14 ALT 23 Alkaline Phosphatase 90 Total Protein 7.4 Albumin 4.2 Carcinoembryonic Ag Urine Color Urine Appearance Urine pH Ur Specific [place] Urine Protein Urine Glucose (UA) Urine Ketones Urine Blood Urine Nitrite Ur Leukocyte Esterase Urine RBC Urine WBC Ur Squamous Epith Cells Urine Bacteria Hyaline Casts COVID-19 (JOHN) Negative COVID-19 Clin Com See Note 06/01/22 06/01/22 06/02/22 22:09 23:10 05:56 MCV 92.9 MCH 31.8 MCHC 34.2 RDW 13.2 Plt Count 296 MPV 10.0 Immature Gran % (Auto) 0.6 H Neut % (Auto) 74.2 H Lymph % (Auto) 11.5 L [place] % (Auto) 13.3 H Eos % (Auto) 0.1 Baso % (Auto) 0.3 Lymph # (Auto) 2.5 [place] # (Auto) 2.9 H Eos # (Auto) 0.0 Baso # (Auto) 0.1 Abs Immat Gran (auto) 0.14 H Absolute Neuts (auto) 16.3 H Absolute Nucleated RBC 0.000 Nucleated RBC % (auto) 0.0 Smear Tech's Comments VERIFIED Anion Gap Estim Creat Clear Calc Estimated GFR Random Glucose Lactic Acid 1.0 Calcium Total Bilirubin AST ALT Alkaline Phosphatase Total Protein Albumin Carcinoembryonic Ag Urine Color Dark Yellow Urine Appearance Clear Urine pH 5.5 Ur Specific [place] >= 1.030 H Urine Protein 30 (1+) H Urine Glucose (UA) 250 H Urine Ketones Trace Urine Blood Negative Urine Nitrite Negative Ur Leukocyte Esterase Trace H Urine RBC 3-5 H Urine WBC 0-5 Ur Squamous Epith Cells 0-2 Urine Bacteria None Seen Hyaline Casts 0-2 COVID-19 (JOHN) COVID-19 Clin Com 06/02/22 06/02/22 05:56 05:56 MCV MCH MCHC RDW Plt Count MPV Immature Gran % (Auto) Neut % (Auto) Lymph % (Auto) Cook % (Auto) Eos % (Auto) Baso % (Auto) Lymph # (Auto) Cook # (Auto) Eos # (Auto) Baso # (Auto) Abs Immat Gran (auto) Absolute Neuts (auto) Absolute Nucleated RBC Nucleated RBC % (auto) Smear Tech's Comments Anion Gap 17 Estim Creat Clear Calc 133.3 Estimated GFR > 60 Random Glucose 120 H D Lactic Acid Calcium 8.9 Total Bilirubin AST ALT Alkaline Phosphatase Total Protein Albumin Carcinoembryonic Ag 3.90 Urine Color Urine Appearance Urine pH Ur Specific [place] Urine Protein Urine Glucose (UA) Urine Ketones Urine Blood Urine Nitrite Ur Leukocyte Esterase Urine RBC Urine WBC Ur Squamous Epith Cells Urine Bacteria Hyaline Casts COVID-19 (JOHN) COVID-19 Clin Com Assessment and Plan (1) Colitis: Status: Acute Plan 47-year-old male with a past medical history of peptic ulcer disease, chronic abd pain, GERD, tobacco dependence, depression presented to the hospital today with a chief complaint of nausea , abdominal pain and diarrhea.? Noted to have colitis.? Admitted for further management.? Colitis: CT abdomen showed findings consistent with colitis and possible neoplasm at the hepatic flexure.? WBC rising Continue IV ceftriaxone and Flagyl GI eval Gentle IV fluids dilaudid for pain History of tobacco dependence:? Counseled on smoking cessation. Peptic ulcer disease/erosive gastritis:? PPI DVT prophylaxis:? Subcu heparin Code status: Full code Need for inaptient: acute coliitis with severe pain, needing IV abx and IV narcotics for pain control Quality Stroke Does the patient have a stroke diagnosis?: No VTE Prior VTE?: No VTE Risk Level:: Medical - moderate - high VTE Device Contraindication: Treatment Not Indicated VTE Drug Contraindication: N/A - Med Ordered
--- NOTE | 2022-06-02 10:05 | PHA.MEDREC ---
Pharmacy Consult ? Medication Reconciliation Pharmacy has completed the medication reconciliation. Patient had majority of medications with them. Verified meds not present with patient and cross-referenced with claim history. Patient had sucralfate 1g po bedtime rx bottle with them and has been taking as such, despite recent claim history for sucralfate with 1 g po bid directions.
[2022-06-02 10:49] VITALS: BP 140/83; TEMP 36.8; O2SAT 98
[2022-06-02 10:56] VITALS: BP 140/83; PULSE 87; RESP 14
--- NOTE | 2022-06-02 11:15 | P.CNGI_ITS ---
History of Present Illness Data of Consult Service Date: 06/02/22 Requesting physician: Brent Caldwell Primary Care Provider: Ngoc Fung MD [facility] Reason for consult: Colitis This is a 47-year-old gentleman with past medical history of GERD, tobacco use disorder, presented to the hospital for complaints of abdominal pain and diarrhea and was found to have abnormal CT scan. Reason for presentation to hospital this time is fevers, chills, abdominal pain and diarrhea for the past 2 days. Patient states that he had [place] food for the weekend, and within a few hours, he started developing right lower quadrant pain associated with nausea, few episodes of vomiting, fever 102 at home and chills. The next morning, he also started to have loose watery bowel movements 5-6 a day. His bowels also had the same food, and has abdominal pain and nausea, but no vomiting or diarrhea. Since coming in here, he has not had any further nausea, vomiting or fevers, but continues to have abdominal pain and watery bowel movements. Patient is well-known to the GI service. He has undergone bidirectional endoscopy within the last 12 months. 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 He also had another EGD/sigmodioscopy in 12/[address] scan that showed lower esophageal and prox stomach wall thickening. He was found to have grade C erosive esophagitis, atrophic gastritis and 2 shallow ulcers in the antrum. Path was significant for chronic inactive inflammation without H pylori. Of note the sigmoidoscopy was till transverse colon and normal to the extent examined. Review of Systems Review of Systems: Yes all other systems are reviewed and are negative [facility] Past Medical History Medical History Chronic GERD Not ready to quit smoking Family History Family History Maternal Aunt No problems noted. Maternal Aunt No problems noted. Surgical History Surgical History Hx of colonoscopy No pertinent past surgical history Social History Social History Housing: House Patient Tobacco Use Status: Current everyday Tobacco user Tobacco use type: Cigar Cigarettes Per Day: 3 Years Smoked: 2 e-Cigarette/Vaping Use: Never Used Advance Directives: No service: No Current occupational status: employed Cognitive needs: No Hearing needs: No Vision needs: No Meds Allergies Allergy/AdvReac Type Severity Reaction Status Date / Time No Known Allergies Allergy Verified 05/23/22 10:30 Active Medications: Current Medications Acetaminophen (Acetaminophen 325 Mg Tablet) 650 mg PO Q6H PRN PRN Reason: Pain, Mild (Pain Scale 1-3) Last Admin: 06/02/22 01:34 Dose: 650 mg Bisacodyl (Bisacodyl 5 Mg Tablet.Dr) 10 mg PO BEDTIME [facility] Enoxaparin Sodium (Enoxaparin Sodium 40 Mg/0.4 Ml Syringe) 40 mg SUBCUT Q24H [facility] Last Admin: 06/01/22 22:47 Dose: 40 mg Famotidine (Famotidine/Pf 20 Mg/2 Ml Vial) 20 mg IVPUSH DAILY [facility] Last Admin: 06/02/22 07:23 Dose: 20 mg Famotidine (Famotidine 20 Mg Tablet) 40 mg PO BEDTIME [facility] Hydromorphone HCl (Hydromorphone Hcl 0.5 Mg/0.5 Ml Syringe) 0.5 mg IVPUSH Q4H PRN; Protocol PRN Reason: Breakthrough Pain Last Admin: 06/02/22 07:22 Dose: 0.5 mg Dextrose/Sodium Chloride (D51/2ns) 1,000 mls @ 100 mls/hr IVCONT .Q10H [facility] Last Infusion: 06/02/22 11:02 Dose: Infused Ceftriaxone Sodium 1 gm/ (Sodium Chloride) 50 mls @ 100 mls/hr IV Q24H [facility] Metronidazole (Flagyl) 500 mg in 100 mls @ 100 mls/hr IV Q8H [facility] Last Infusion: 06/02/22 07:50 Dose: Infused Ketotifen Fumarate (Ketotifen Fumarate 0.025% Oph 5 Ml Drpbtl) 1 drop EYE-BOTH BID [facility] Megestrol Acetate (Megestrol Acetate 20 Mg Tablet) 40 mg PO DAILY [facility] Mirtazapine (Mirtazapine 15 Mg Tablet) 15 mg PO BEDTIME [facility] Ondansetron HCl (Ondansetron Hcl 4 Mg/2 Ml Vial) 4 mg IVPUSH Q8H PRN PRN Reason: Nausea and Vomiting Last Admin: 06/02/22 07:22 Dose: 4 mg Senna (Sennosides 8.6 Mg Tablet) 17.2 mg PO BEDTIME PRN PRN Reason: Constipation Sodium Chloride (0.9 % Sodium Chloride Flush 3 Ml Syringe) 3 ml IVFLUSH QSHIFT [facility] Last Admin: 06/02/22 07:32 Dose: 3 ml Sucralfate (Sucralfate 1 Gm Tablet) 2 gm PO BID [facility] Home Medications Medication Instructions Recorded Confirmed Last Taken Type famotidine 40 mg tablet 1 tab PO BEDTIME 06/02/22 06/02/22 06/01/22 History metoclopramide HCl 10 mg tablet 10 mg PO TIDAC 06/02/22 06/02/22 06/01/22 History (Reglan) sucralfate 1 gram tablet 1 tab PO BEDTIME 06/02/22 06/02/22 06/01/22 History Physical Exam Vital Signs: Vital Signs: Last Vital Signs Temp 98.2 F 06/02/22 10:49 Pulse 87 06/02/22 10:56 Resp 14 06/02/22 10:56 BP 140/83 H 06/02/22 10:56 Pulse Ox 98 06/02/22 10:49 O2 Del Method 06/02/22 10:49 BMI result Body Mass Index 17.9 Gen appear: No acute distress, well nourished HEENT: no icterus, no cervical lymphadenopathy Chest: No overt resp distress CVS: S1/S2, regular Abd: soft, tender in RLQ, guarding +, no rebound, nondistended Psych: Stable affect, answering questions appropriately Neuro: A/Ox3 noted to move all extremities spontaneously Ext: no peripheral edema Results Labs CBC & Chem 7: 06/02/22 05:56 06/02/22 05:56 Labs: Short CBC 06/01/22 06/02/22 Range/Units 14:00 05:56 WBC 17.5 H 21.9 H (4.8-10.8) X10*3/uL Hgb 15.0 13.4 L (14.0-18.0) g/dl Hct 43.0 39.2 L (42.0-52.0) % Plt Count 298 296 (160-400) X10*3/uL BMP 06/01/22 06/02/22 14:00 05:56 Sodium 135 136 Potassium 3.8 D 4.1 Chloride 101 102 Carbon Dioxide 19 L 21 L BUN 11 11 Creatinine 0.72 0.58 Calcium 9.4 8.9 Liver Function 06/01/22 Range/Units 14:00 Total Bilirubin 1.8 H (0.0-1.0) mg/dL AST 14 (5-37) U/L ALT 23 (0-40) U/L Alkaline Phosphatase 90 (39-117) U/L Albumin 4.2 (3.5-5.0) g/dL Urine 06/01/22 Range/Units 23:10 Urine Color Dark Yellow Urine Appearance Clear Urine pH 5.5 (5.0-9.0) Ur Specific [place] >= 1.030 H (1.005-1.025) Urine Protein 30 (1+) H (Neg-Trace) mg/dL Urine Glucose (UA) 250 H (Negative) mg/dL Assessment and Plan (1) Nausea and vomiting: Status: Acute (2) Granular cell tumor: Status: Acute (3) Right lower quadrant abdominal pain: Status: Acute (4) Diarrhea: Status: Acute (5) Colitis: Status: Acute Plan Acute onset of febrile illness with gastrointestinal symptoms, likely has infectious colitis. Other differentials such as inflammatory or ischemic less likely in light of recent complete colonoscopy less than 1 year ago, and absence of hematochezia. 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 This is an atypical location for this soft tissue tumor. Needs wide excision for complete assessment of margin and malignancy potential. This needs follow-up. While do not expect this to cause upper GI symptoms such as nausea, vomiting,as well as a fever; low threshold to proceed with a colonoscopy, if his diarrhea persists. Recommendations: - IVF resuscitation - CLD as tolerated - Infectious work up - C Diff, stool WBCs, GI panel ordered - Decision to proceed with inpatient colonoscopy will be contingent on clinical course, otherwise outpatient eval will be set up as previously planned. Recommendations relayed to hospitalist. Procedures Date of Service Date of Service: 06/02/22
[2022-06-02 13:23] VITALS: BP 133/73; PULSE 85; RESP 18; TEMP 36.8; O2SAT 99
[2022-06-02 16:01] VITALS: BP 135/75; PULSE 80; RESP 16; TEMP 37.5; O2SAT 99
[2022-06-02 19:52] VITALS: BP 133/60; PULSE 86; RESP 18; TEMP 37.3; O2SAT 100
[2022-06-02] MEDS: Mirtazapine 15 MG TABLET PO (21:46)
[2022-06-02] MEDS: Sucralfate 1 GM TABLET 2 GM PO (21:46)
[2022-06-02] MEDS: cefTRIAXone sodium 1 GM in 0.9 % Sodium Chloride 50 ML IV (21:46)
[2022-06-02] MEDS: Famotidine 20 MG TABLET 40 MG PO (21:46)
[2022-06-02] MEDS: Enoxaparin Sodium 40 MG/0.4 ML SYRINGE SUBCUT (21:46)
[2022-06-02] MEDS: bisacodyL 5 MG TABLET.DR 10 MG PO (21:46)
[2022-06-03] VITALS (7 sets, daily range): BP systolic 111–144; BP diastolic 59–77; PULSE 77–92; RESP 15–18; TEMP 36.6–37.9; O2SAT 95–99; BMI 17.9
[2022-06-03] MEDS: Dextrose 5 % and 0.45 % NaCl 1,000 ML 100 ML IVCONT ×3 (00:22→21:21)
[2022-06-03 06:23] LABS: Hematocrit 36.7 % (42.0-52.0); Hemoglobin 12.5 g/dl (14.0-18.0); Mean Corpuscular HGB Conc 34.1 g/dl (31.0-36.0); Mean Corpuscular Hemoglobin 31.5 pg (27.0-33.0); Mean Corpuscular Volume 92.4 fL (80.0-98.0); Mean Platelet Volume 10.1 fL (9.4-12.4); Platelet Count 282 X10*3/uL (160-400); Red Blood Count 3.97 X10*6/uL (4.60-5.80); Red Cell Distribution Width 13.2 % (11.0-16.0); White Blood Count 19.4 X10*3/uL (4.8-10.8)
[2022-06-03] MEDS: metroNIDAZOLE/NS 500 MG/100 ML PIGGYBACK 100 MG IV ×3 (06:23→21:45)
[2022-06-03] MEDS: Famotidine/PF 20 MG/2 ML VIAL IVPUSH (07:49)
[2022-06-03] MEDS: 0.9 % Sodium Chloride Flush 3 ML SYRINGE IVFLUSH ×2 (07:49→15:34)
[2022-06-03] MEDS: Sucralfate 1 GM TABLET 2 GM PO ×2 (07:49→19:23)
[2022-06-03] MEDS: Megestrol Acetate 20 MG TABLET 40 MG PO (07:49)
--- NOTE | 2022-06-03 08:11 | P.PNIM_ITS ---
Subjective Subjective Date of Service: 06/03/22 Interval History: Seen in f/u for abdominal pain, coliitis interval history: still with abd pain, diarrhea, no fever Review of Systems abd pain diarrhea Physical Exam Vital Signs: Vital Signs: Last Vital Signs Temp 99.6 F 06/03/22 08:00 Pulse 80 06/03/22 08:00 Resp 17 06/03/22 08:00 BP 140/75 H 06/03/22 08:00 Pulse Ox 98 06/03/22 08:00 O2 Del Method 06/03/22 08:00 BMI result Body Mass Index 17.9 Const: Other: General: AO X 3, no acute distress Resp: CTA bilateral CVS: S1,S2,RRR GI: +BS, diffuse tenderenes, voluntary guarding, no rebound, no distention Skin: No rash Neuro: motor grossly intact Psych: appropriate affect Objective Data Active Medications Acetaminophen (Acetaminophen 325 Mg Tablet) 650 mg PO Q6H PRN PRN Reason: Pain, Mild (Pain Scale 1-3) Last Admin: 06/02/22 01:34 Dose: 650 mg Documented By: LIV Bisacodyl (Bisacodyl 5 Mg Tablet.Dr) 10 mg PO BEDTIME [facility] Last Admin: 06/02/22 21:46 Dose: 10 mg Documented By: HUSSEIN Enoxaparin Sodium (Enoxaparin Sodium 40 Mg/0.4 Ml Syringe) 40 mg SUBCUT Q24H [facility] Last Admin: 06/02/22 21:46 Dose: 40 mg Documented By: HUSSEIN Famotidine (Famotidine/Pf 20 Mg/2 Ml Vial) 20 mg IVPUSH DAILY [facility] Last Admin: 06/03/22 07:49 Dose: 20 mg Documented By: MISHA Famotidine (Famotidine 20 Mg Tablet) 40 mg PO BEDTIME [facility] Last Admin: 06/02/22 21:46 Dose: 40 mg Documented By: HUSSEIN Hydromorphone HCl (Hydromorphone Hcl 0.5 Mg/0.5 Ml Syringe) 0.5 mg IVPUSH Q4H PRN; Protocol PRN Reason: Breakthrough Pain Last Admin: 06/02/22 12:41 Dose: 0.5 mg Documented By: JACQUELINE Dextrose/Sodium Chloride (D51/2ns) 1,000 mls @ 100 mls/hr IVCONT .Q10H [facility] Last Infusion: 06/03/22 07:45 Dose: 100 mls/hr Documented By: MISHA Ceftriaxone Sodium 1 gm/ (Sodium Chloride) 50 mls @ 100 mls/hr IV Q24H [facility] Last Infusion: 06/02/22 22:18 Dose: 0 mls/hr Documented By: HUSSEIN Metronidazole (Flagyl) 500 mg in 100 mls @ 100 mls/hr IV Q8H [facility] Last Infusion: 06/03/22 07:49 Dose: 0 mls/hr Documented By: MISHA Ketotifen Fumarate (Ketotifen Fumarate 0.025% Oph 5 Ml Drpbtl) 1 drop EYE-BOTH BID [facility] Last Admin: 06/03/22 07:51 Dose: Not Given Documented By: MISHA Non-Admin Reason: Med Not Available Megestrol Acetate (Megestrol Acetate 20 Mg Tablet) 40 mg PO DAILY [facility] Last Admin: 06/03/22 07:49 Dose: 40 mg Documented By: MISHA Mirtazapine (Mirtazapine 15 Mg Tablet) 15 mg PO BEDTIME [facility] Last Admin: 06/02/22 21:46 Dose: 15 mg Documented By: HUSSEIN Ondansetron HCl (Ondansetron Hcl 4 Mg/2 Ml Vial) 4 mg IVPUSH Q8H PRN PRN Reason: Nausea and Vomiting Last Admin: 06/02/22 07:22 Dose: 4 mg Documented By: NAHOMI Senna (Sennosides 8.6 Mg Tablet) 17.2 mg PO BEDTIME PRN PRN Reason: Constipation Sodium Chloride (0.9 % Sodium Chloride Flush 3 Ml Syringe) 3 ml IVFLUSH QSHIFT [facility] Last Admin: 06/03/22 07:49 Dose: 3 ml Documented By: MISHA Sucralfate (Sucralfate 1 Gm Tablet) 2 gm PO BID [facility] Last Admin: 06/03/22 07:49 Dose: 2 gm Documented By: MISHA Labs CBC & Chem 7: 06/03/22 05:11 06/02/22 05:56 Labs: Laboratory Results - last 24 hr 06/02/22 06/03/22 05:56 05:11 MCV 92.4 MCH 31.5 MCHC 34.1 RDW 13.2 Plt Count 282 MPV 10.1 Immature Gran % (Auto) 0.6 H Neut % (Auto) 74.2 H Lymph % (Auto) 11.5 L [place] % (Auto) 13.3 H Eos % (Auto) 0.1 Baso % (Auto) 0.3 Lymph # (Auto) 2.5 [place] # (Auto) 2.9 H Eos # (Auto) 0.0 Baso # (Auto) 0.1 Abs Immat Gran (auto) 0.14 H Absolute Neuts (auto) 16.3 H Absolute Nucleated RBC 0.000 0.000 Nucleated RBC % (auto) 0.0 0.0 Smear Tech's Comments VERIFIED Microbiology Microbiology Results: Microbiology 06/01/22 22:09 Blood Culture - Preliminary Blood - Venous No growth after 24 hours. 06/01/22 22:09 Blood Culture - Preliminary Blood - Venous Prelim: GPC Gram Stain only Assessment and Plan (1) Colitis: Status: Acute Plan 47-year-old male with a past medical history of peptic ulcer disease, chronic abd pain, GERD, tobacco dependence, depression presented to the hospital today with a chief complaint of nausea , abdominal pain and diarrhea.? Noted to have colitis.? Admitted for further management.? Colitis likelu infectious, c: CT abdomen showed findings consistent with colitis and possible neoplasm at the hepatic flexure.?Clinically responding to therapy -WBC going down Continue IV ceftriaxone and Flagyl Seen by Dr. Castro recommend IV Abx, fluid, Cdif, gi panel (pending) and colonoscopy dependent on clinical course otherwise outpatient dilaudid for pain Clear liquid diet (CLD) and advance as tole History of tobacco dependence:? Counseled on smoking cessation. Peptic ulcer disease/erosive gastritis:? PPI DVT prophylaxis:? Subcu heparin Code status: Full code Need for inaptient: acute coliitis with severe pain, needing IV abx and IV narcotics for pain control Quality Stroke Does the patient have a stroke diagnosis?: No VTE Prior VTE?: No VTE Risk Level:: Medical - moderate - high VTE Device Contraindication: Treatment Not Indicated VTE Drug Contraindication: N/A - Med Ordered
--- NOTE | 2022-06-03 13:22 | MHC.CLN ---
NUTRITION PATIENT WITH BMI=17.9 AND REPORTING WEIGHT LOSS X 4 MONTHS. CURRENT DIET=FULL LIQUID. TAKES ENSURE AT HOME. ORDER IN PLACE FOR ENSURE TID. PROVIDES ADDITIONAL 1050 KCALS, 60 G PROTEIN. SEE CLINICAL NUTRITION ASSESSMENT 06/03/22.
--- NOTE | 2022-06-03 16:28 | MHC.CM.PN ---
PT REPORTS HE LIVES WITH HIS AND IS INDEPENDENT WITH CARE PT WORKS AND DRIVES PT DENIES USE OF DME OR HOME SERVICES HE IS NOT COVID VACCINATED PCP: ALEXANDER JIMENEZ HCP COMPLETED AND NOW ON FILE DCP HOME NO SERVICES PRIVATE TRANSPORT
--- NOTE | 2022-06-03 16:33 | PM.GIPN ---
Subjective Subjective Date of Service: 06/03/22 Interval History: Continues to have diarrhea and abdominal pain. Has been tolerating liquids. Critical Care Time (minutes): 0 Physical Exam Vital Signs: Vital Signs: Last Vital Signs Temp 99.0 F 06/03/22 15:19 Pulse 92 06/03/22 15:19 Resp 16 06/03/22 15:19 BP 111/68 06/03/22 15:19 Pulse Ox 99 06/03/22 15:19 O2 Del Method 06/03/22 15:19 BMI result Body Mass Index 17.9 General appearance: No acute distress Abdomen: Soft, mildly tender, nondistended Objective Data Labs CBC & Chem 7: 06/03/22 05:11 06/02/22 05:56 Labs: Laboratory Results - last 24 hr 06/03/22 05:11 WBC 19.4 H RBC 3.97 L Hgb 12.5 L Hct 36.7 L MCV 92.4 MCH 31.5 MCHC 34.1 RDW 13.2 Plt Count 282 MPV 10.1 Absolute Nucleated RBC 0.000 Nucleated RBC % (auto) 0.0 Microbiology Microbiology Results: Microbiology 06/01/22 22:09 Blood - Venous Blood Culture - Preliminary Prelim: GPC Gram Stain only 06/01/22 22:09 Blood - Venous Blood Culture - Preliminary No growth after 24 hours. Procedures Date of Service Date of Service: 06/03/22 Progress Note: A&P Assessment and plan (1) Right lower quadrant abdominal pain: Status: Acute (2) Diarrhea: Status: Acute (3) Colitis: Status: Acute Plan Likely infectious. Stool studies just sent this afternoon. Will follow up. Okay to advance diet as tolerated. Patient was again reminded that he does need a full colonoscopy to follow up on GCT which will likely be pursued as outpatient. Time Spent With Patient Time: Total time spent is greater than 50% in coordination of care (as documented) at patient's floor/unit and/or counseling patient: Quality Stroke Does the patient have a stroke diagnosis?: No VTE Prior VTE?: No VTE Risk Level:: Medical - moderate - high VTE Device Contraindication: Treatment Not Indicated VTE Drug Contraindication: N/A - Med Ordered
[2022-06-03 17:45] LABS: CDiff Gene PCR NEGATIVE (Negative)
[2022-06-03 18:23] LABS: Leukocytes Stool Qualitative MOD: 3-9/OIF (NEGATIVE)
[2022-06-03] MEDS: Famotidine 20 MG TABLET 40 MG PO (19:23)
[2022-06-03] MEDS: bisacodyL 5 MG TABLET.DR 10 MG PO (19:23)
[2022-06-03] MEDS: Mirtazapine 15 MG TABLET PO (19:23)
[2022-06-03 19:39] LABS: Glucose, Whole Blood 118 mg/dL (60-115)
[2022-06-03] MEDS: Enoxaparin Sodium 40 MG/0.4 ML SYRINGE SUBCUT (21:19)
[2022-06-03] MEDS: cefTRIAXone sodium 1 GM in 0.9 % Sodium Chloride 50 ML IV (21:19)
[2022-06-04 03:19] VITALS: BP 139/74; PULSE 76; RESP 18; TEMP 36.9; O2SAT 98
[2022-06-04] MEDS: metroNIDAZOLE/NS 500 MG/100 ML PIGGYBACK 100 MG IV ×3 (06:04→22:31)
[2022-06-04 07:22] VITALS: BP 124/69; PULSE 75; RESP 13; TEMP 37.4; O2SAT 99
[2022-06-04] MEDS: 0.9 % Sodium Chloride Flush 3 ML SYRINGE IVFLUSH ×3 (08:14→23:43)
[2022-06-04] MEDS: Famotidine/PF 20 MG/2 ML VIAL IVPUSH (08:14)
[2022-06-04] MEDS: Sucralfate 1 GM TABLET 2 GM PO ×2 (08:14→21:56)
[2022-06-04] MEDS: Megestrol Acetate 20 MG TABLET 40 MG PO (08:14)
--- NOTE | 2022-06-04 08:47 | P.CDIC_ITS ---
CDI Concurrent Query Documentation Clarification: PHYSICIAN'S DOCUMENTATION REQUEST Date of Query: 06/04/22 0847 Patient Name: Seth Hui Admit Date: 06/01/22 Dear Doctor, A review of the medical record indicates additional documentation may be needed. Please review below and update the documentation accordingly. Clinical Indicators: Risk Factors/Clinical Indicators/Treatments Nutrition notes 06/03 - Underweight with BMI 17.9 Non severe malnourished in the context of chronic illness. Significant weight loss past 4 mths. Smoker, possible malignancy Ensure TID If possible, please provide an associated diagnosis related to the abnormal BMI, such as: For a BMI <= 19: * Underweight * Weight loss * Malnourished * Cachexia * Anorexia Or: * BMI is not significant * Other (please specify) * Unable to determine Use of terms such as suspected, likely, concern for, or probable (associated with a specific diagnosis that is being evaluated, monitored, or treated as if it exists) are acceptable and can be coded in the inpatient setting, when documented at the time of discharge. Thank you, Evelyn Daly [facility], [facility] Extension: [phone] Please use your independent medical judgment in providing your response. THIS QUERY IS PART OF THE PERMANENT MEDICAL RECORD Provider Response: Moderate Protein-Calorie Malnutrition
[2022-06-04 08:58] LABS: Hemoglobin 13.9 g/dl (14.0-18.0); Mean Corpuscular HGB Conc 33.9 g/dl (31.0-36.0); Mean Corpuscular Hemoglobin 31.7 pg (27.0-33.0); Mean Corpuscular Volume 93.6 fL (80.0-98.0); Mean Platelet Volume 9.6 fL (9.4-12.4); Platelet Count 324 X10*3/uL (160-400); Red Blood Count 4.38 X10*6/uL (4.60-5.80); Red Cell Distribution Width 13.2 % (11.0-16.0); White Blood Count 8.4 X10*3/uL (4.8-10.8)
[2022-06-04 09:08] LABS: Adenovirus F 40/41 Not Detected (Not Detect.); Astrovirus Not Detected (Not Detect.); Campylobacter Not Detected (Not Detect.); Cryptosporidium Not Detected (Not Detect.); Cyclospora cayetanensis Not Detected (Not Detect.); E. coli EAEC Not Detected (Not Detect.); E. coli EPEC Not Detected (Not Detect.); E. coli ETEC Not Detected (Not Detect.); E. coli STEC Not Detected (Not Detect.); Entamoeba histolytica Not Detected (Not Detect.); Giardia lamblia Not Detected (Not Detect.); Norovirus GI/GII Not Detected (Not Detect.); Plesiomonas shigelloides Not Detected (Not Detect.); Rotavirus A Not Detected (Not Detect.); Salmonella Not Detected (Not Detect.); Sapovirus Not Detected (Not Detect.); Shigella sp./EIEC Not Detected (Not Detect.); Vibrio Not Detected (Not Detect.); Vibrio Cholerae Not Detected (Not Detect.); Yersinia enterocolitica Not Detected (Not Detect.)
--- NOTE | 2022-06-04 09:49 | HO.PM.IMPN ---
Subjective Subjective Date of Service: 06/04/22 Interval History: Continues to have diarrhea and abdominal pain. Has been tolerating liquid and would like diet advanced Review of Systems abd pain diarrhea Physical Exam Vital Signs: Vital Signs: Last Vital Signs Temp 99.4 F 06/04/22 07:22 Pulse 75 06/04/22 07:22 Resp 13 06/04/22 07:22 BP 124/69 06/04/22 07:22 Pulse Ox 99 06/04/22 07:22 O2 Del Method 06/04/22 07:22 BMI result Body Mass Index 17.9 Const: Other: General: AO X 3, no acute distress Resp: CTA bilateral CVS: S1,S2,RRR GI: +BS, diffuse tenderenes, voluntary guarding, no rebound, no distention Skin: No rash Neuro: motor grossly intact Psych: appropriate affect Objective Data Active Medications Acetaminophen (Acetaminophen 325 Mg Tablet) 650 mg PO Q6H PRN PRN Reason: Pain, Mild (Pain Scale 1-3) Last Admin: 06/02/22 01:34 Dose: 650 mg Documented By: LIV Bisacodyl (Bisacodyl 5 Mg Tablet.Dr) 10 mg PO BEDTIME [facility] Last Admin: 06/03/22 19:23 Dose: 10 mg Documented By: HUSSEIN Enoxaparin Sodium (Enoxaparin Sodium 40 Mg/0.4 Ml Syringe) 40 mg SUBCUT Q24H [facility] Last Admin: 06/03/22 21:19 Dose: 40 mg Documented By: HUSSEIN Famotidine (Famotidine/Pf 20 Mg/2 Ml Vial) 20 mg IVPUSH DAILY [facility] Last Admin: 06/04/22 08:14 Dose: 20 mg Documented By: MISHA Famotidine (Famotidine 20 Mg Tablet) 40 mg PO BEDTIME [facility] Last Admin: 06/03/22 19:23 Dose: 40 mg Documented By: HUSSEIN Hydromorphone HCl (Hydromorphone Hcl 0.5 Mg/0.5 Ml Syringe) 0.5 mg IVPUSH Q4H PRN; Protocol PRN Reason: Breakthrough Pain Last Admin: 06/02/22 12:41 Dose: 0.5 mg Documented By: JACQUELINE Ceftriaxone Sodium 1 gm/ (Sodium Chloride) 50 mls @ 100 mls/hr IV Q24H [facility] Last Infusion: 06/03/22 21:52 Dose: 0 mls/hr Documented By: HUSSEIN Metronidazole (Flagyl) 500 mg in 100 mls @ 100 mls/hr IV Q8H [facility] Last Infusion: 06/04/22 07:16 Dose: 0 mls/hr Documented By: MISHA Ketotifen Fumarate (Ketotifen Fumarate 0.025% Oph 5 Ml Drpbtl) 1 drop EYE-BOTH BID [facility] Last Admin: 06/04/22 08:09 Dose: Not Given Documented By: MISHA Non-Admin Reason: Med Not Available Megestrol Acetate (Megestrol Acetate 20 Mg Tablet) 40 mg PO DAILY [facility] Last Admin: 06/04/22 08:14 Dose: 40 mg Documented By: MISHA Mirtazapine (Mirtazapine 15 Mg Tablet) 15 mg PO BEDTIME [facility] Last Admin: 06/03/22 19:23 Dose: 15 mg Documented By: HUSSEIN Ondansetron HCl (Ondansetron Hcl 4 Mg/2 Ml Vial) 4 mg IVPUSH Q8H PRN PRN Reason: Nausea and Vomiting Last Admin: 06/02/22 07:22 Dose: 4 mg Documented By: NAHOMI Senna (Sennosides 8.6 Mg Tablet) 17.2 mg PO BEDTIME PRN PRN Reason: Constipation Sodium Chloride (0.9 % Sodium Chloride Flush 3 Ml Syringe) 3 ml IVFLUSH QSHIFT [facility] Last Admin: 06/04/22 08:14 Dose: 3 ml Documented By: MISHA Sucralfate (Sucralfate 1 Gm Tablet) 2 gm PO BID [facility] Last Admin: 06/04/22 08:14 Dose: 2 gm Documented By: MISHA Labs CBC & Chem 7: 06/04/22 08:46 06/02/22 05:56 Labs: Laboratory Results - last 24 hr 06/03/22 06/03/22 06/03/22 12:18 15:35 15:35 MCV MCH MCHC RDW Plt Count MPV Absolute Nucleated RBC Nucleated RBC % (auto) POC Glucose Stool Leukocytes, Qual MOD: 3-9/OIF Stl C. cayetanensis PCR Not Detected Stool Rotavirus A PCR Not Detected Stl Adenov F 40/41 PCR Not Detected Stool Astrovirus (PCR) Not Detected Stool Campylobacter PCR Not Detected Stool Cryptosporidium PCR Not Detected Stl Sh Tox Pr E STEC PCR Not Detected Stool E coli O157 PCR Not applicable Stl Enterotoxigenic E PCR Not Detected Stool EPEC (PCR) Not Detected Stool EAEC (PCR) Not Detected Stl E. histolytica PCR Not Detected Stool Giardia Lamblia PCR Not Detected Stl P. shigelloides PCR Not Detected Stool Salmonella PCR Not Detected Stool Sapovirus (PCR) Not Detected Stl Shigella/EIEC PCR Not Detected St Y.enterocolitica PCR Not Detected Stool Vibrio (PCR) Not Detected Stl Vibrio cholerae PCR Not Detected Stl Norovirus GI/GII PCR Not Detected C. difficile Tox B Gene NEGATIVE 06/03/22 06/04/22 19:23 08:46 MCV 93.6 MCH 31.7 MCHC 33.9 RDW 13.2 Plt Count 324 MPV 9.6 Absolute Nucleated RBC 0.000 Nucleated RBC % (auto) 0.0 POC Glucose 118 H Stool Leukocytes, Qual Stl C. cayetanensis PCR Stool Rotavirus A PCR Stl Adenov F 40/41 PCR Stool Astrovirus (PCR) Stool Campylobacter PCR Stool Cryptosporidium PCR Stl Sh Tox Pr E STEC PCR Stool E coli O157 PCR Stl Enterotoxigenic E PCR Stool EPEC (PCR) Stool EAEC (PCR) Stl E. histolytica PCR Stool Giardia Lamblia PCR Stl P. shigelloides PCR Stool Salmonella PCR Stool Sapovirus (PCR) Stl Shigella/EIEC PCR St Y.enterocolitica PCR Stool Vibrio (PCR) Stl Vibrio cholerae PCR Stl Norovirus GI/GII PCR C. difficile Tox B Gene Microbiology Microbiology Results: Microbiology 06/01/22 22:09 Blood Culture - Preliminary Blood - Venous No growth after 48 hours. 06/01/22 22:09 Blood Culture - Preliminary Blood - Venous Prelim: GPC Gram Stain only Assessment and Plan (1) Colitis: Status: Acute Plan 47-year-old male with a past medical history of peptic ulcer disease, chronic abd pain, GERD, tobacco dependence, depression presented to the hospital today with a chief complaint of nausea , abdominal pain and diarrhea.? Noted to have colitis.? Admitted for further management.? Colitis likelu infectious, c: CT abdomen showed findings consistent with colitis and possible neoplasm at the hepatic flexure.?Clinically responding to therapy -WBC going down Continue IV ceftriaxone and Flagyl Seen by Dr. Castro recommend IV Abx, fluid, Cdif negative, stool panel negative. Colonoscopy as outpatient dilaudid for pain Clear liquid diet (CLD) , advance to low resiudue, imodium for diarrhea History of tobacco dependence:? Counseled on smoking cessation. Peptic ulcer disease/erosive gastritis:? PPI DVT prophylaxis:? Subcu heparin Code status: Full code Need for inaptient: acute coliitis with severe pain, needing IV abx and IV narcotics for pain control possible dc by tomorrow if better Quality Stroke Does the patient have a stroke diagnosis?: No VTE Prior VTE?: No VTE Risk Level:: Medical - moderate - high VTE Device Contraindication: Treatment Not Indicated VTE Drug Contraindication: N/A - Med Ordered
[2022-06-04 11:14] VITALS: BP 149/72; PULSE 86; RESP 16; TEMP 37.9; O2SAT 98
[2022-06-04 14:17] LABS: Alpha Fetoprotein 1.4 ng/mL (<6.1)
[2022-06-04 15:22] VITALS: BP 146/74; PULSE 73; RESP 17; TEMP 37.6; O2SAT 100
[2022-06-04 19:21] VITALS: BP 137/76; PULSE 76; RESP 17; TEMP 37.4; O2SAT 100
[2022-06-04] MEDS: HYDROmorphone HCl 0.5 MG/0.5 ML SYRINGE IVPUSH (21:51)
[2022-06-04] MEDS: cefTRIAXone sodium 1 GM in 0.9 % Sodium Chloride 50 ML IV (21:55)
[2022-06-04] MEDS: Mirtazapine 15 MG TABLET PO (21:56)
[2022-06-04] MEDS: Famotidine 20 MG TABLET 40 MG PO (21:56)
[2022-06-04] MEDS: bisacodyL 5 MG TABLET.DR 10 MG PO (21:56)
[2022-06-04] MEDS: Ketotifen Fumarate 0.025% Oph 5 ML DRPBTL 1 DROP EYE-BOTH (22:00)
[2022-06-04] MEDS: Enoxaparin Sodium 40 MG/0.4 ML SYRINGE SUBCUT (22:01)
[2022-06-04 23:44] VITALS: BP 136/72; PULSE 67; RESP 18; TEMP 37.6; O2SAT 100
[2022-06-05 03:08] VITALS: BP 135/69; PULSE 87; RESP 18; TEMP 37.6; O2SAT 100
[2022-06-05] MEDS: metroNIDAZOLE/NS 500 MG/100 ML PIGGYBACK 100 MG IV (06:38)
[2022-06-05 08:00] VITALS: BP 128/66; PULSE 80; RESP 20; TEMP 37; O2SAT 98
[2022-06-05] MEDS: Famotidine/PF 20 MG/2 ML VIAL IVPUSH (09:16)
[2022-06-05] MEDS: Megestrol Acetate 20 MG TABLET 40 MG PO (09:16)
[2022-06-05] MEDS: Sucralfate 1 GM TABLET 2 GM PO (09:16)
[2022-06-05] MEDS: 0.9 % Sodium Chloride Flush 3 ML SYRINGE IVFLUSH (09:17)
[2022-06-05] MEDS: Ketotifen Fumarate 0.025% Oph 5 ML DRPBTL 1 DROP EYE-BOTH (09:24)
--- NOTE | 2022-06-05 10:21 | P.PNIM_ITS ---
Subjective Subjective Date of Service: 06/05/22 Interval History: Continues to have profuse diarrhea but no abdominal pain. Tolerating soft diet Review of Systems abd pain diarrhea Physical Exam Vital Signs: Vital Signs: Last Vital Signs Temp 98.6 F 06/05/22 08:00 Pulse 80 06/05/22 08:00 Resp 20 06/05/22 08:00 BP 128/66 06/05/22 08:00 Pulse Ox 98 06/05/22 08:00 O2 Del Method 06/05/22 08:00 BMI result Body Mass Index 17.9 Const: Other: General: AO X 3, no acute distress Resp: CTA bilateral CVS: S1,S2,RRR GI: +BS, diffuse tenderenes, voluntary guarding, no rebound, no distention Skin: No rash Neuro: motor grossly intact Psych: appropriate affect Objective Data Active Medications Acetaminophen (Acetaminophen 325 Mg Tablet) 650 mg PO Q6H PRN PRN Reason: Pain, Mild (Pain Scale 1-3) Last Admin: 06/02/22 01:34 Dose: 650 mg Documented By: LIV Bisacodyl (Bisacodyl 5 Mg Tablet.Dr) 10 mg PO BEDTIME [facility] Last Admin: 06/04/22 21:56 Dose: 10 mg Documented By: KUNAL Enoxaparin Sodium (Enoxaparin Sodium 40 Mg/0.4 Ml Syringe) 40 mg SUBCUT Q24H [facility] Last Admin: 06/04/22 22:01 Dose: 40 mg Documented By: KUNAL Famotidine (Famotidine/Pf 20 Mg/2 Ml Vial) 20 mg IVPUSH DAILY [facility] Last Admin: 06/05/22 09:16 Dose: 20 mg Documented By: VIANEY Famotidine (Famotidine 20 Mg Tablet) 40 mg PO BEDTIME [facility] Last Admin: 06/04/22 21:56 Dose: 40 mg Documented By: KUNAL Hydromorphone HCl (Hydromorphone Hcl 0.5 Mg/0.5 Ml Syringe) 0.5 mg IVPUSH Q4H PRN; Protocol PRN Reason: Breakthrough Pain Last Admin: 06/04/22 21:51 Dose: 0.5 mg Documented By: KUNAL Ceftriaxone Sodium 1 gm/ (Sodium Chloride) 50 mls @ 100 mls/hr IV Q24H [facility] Last Infusion: 06/04/22 22:32 Dose: 0 mls/hr Documented By: KUNAL Metronidazole (Flagyl) 500 mg in 100 mls @ 100 mls/hr IV Q8H [facility] Last Infusion: 06/05/22 08:17 Dose: 0 mls/hr Documented By: VAINEY Ketotifen Fumarate (Ketotifen Fumarate 0.025% Oph 5 Ml Drpbtl) 1 drop EYE-BOTH BID [facility] Last Admin: 06/05/22 09:24 Dose: 1 drop Documented By: VIANEY Megestrol Acetate (Megestrol Acetate 20 Mg Tablet) 40 mg PO DAILY [facility] Last Admin: 06/05/22 09:16 Dose: 40 mg Documented By: VIANEY Mirtazapine (Mirtazapine 15 Mg Tablet) 15 mg PO BEDTIME [facility] Last Admin: 06/04/22 21:56 Dose: 15 mg Documented By: KUNAL Ondansetron HCl (Ondansetron Hcl 4 Mg/2 Ml Vial) 4 mg IVPUSH Q8H PRN PRN Reason: Nausea and Vomiting Last Admin: 06/02/22 07:22 Dose: 4 mg Documented By: NAHOMI Senna (Sennosides 8.6 Mg Tablet) 17.2 mg PO BEDTIME PRN PRN Reason: Constipation Sodium Chloride (0.9 % Sodium Chloride Flush 3 Ml Syringe) 3 ml IVFLUSH QSHIFT [facility] Last Admin: 06/05/22 09:17 Dose: 3 ml Documented By: VIANEY Sucralfate (Sucralfate 1 Gm Tablet) 2 gm PO BID [facility] Last Admin: 06/05/22 09:16 Dose: 2 gm Documented By: VIANEY Labs CBC & Chem 7: 06/04/22 08:46 06/02/22 05:56 Labs: Laboratory Results - last 24 hr 06/02/22 05:56 Alpha Fetoprotein 1.4 Microbiology Microbiology Results: Microbiology 06/01/22 22:09 Blood Culture - Final Blood - Venous Coag negative Staphylococcus Assessment and Plan (1) Colitis: Status: Acute Plan 47-year-old male with a past medical history of peptic ulcer disease, chronic abd pain, GERD, tobacco dependence, depression presented to the hospital today with a chief complaint of nausea , abdominal pain and diarrhea.? Noted to have colitis.? Admitted for further management.? Colitis likelu infectious, c: CT abdomen showed findings consistent with colitis and possible neoplasm at the hepatic flexure.?Clinically responding to Abx -WBC is now normal Continue IV ceftriaxone and Flagyl Seen by Dr. Castro recommend IV Abx, fluid, Cdif negative, stool panel negative. Colonoscopy as outpatient dilaudid for pain Clear liquid diet (CLD) , advance to low resiudue, imodium for diarrhea History of tobacco dependence:? Counseled on smoking cessation. Peptic ulcer disease/erosive gastritis:? PPI DVT prophylaxis:? Subcu heparin Code status: Full code Need for inaptient: acute coliitis with severe pain, needing IV abx and IV narcotics for pain control possible dc by tomorrow if better, care discussed with patient and at bedside Quality Stroke Does the patient have a stroke diagnosis?: No VTE Prior VTE?: No VTE Risk Level:: Medical - moderate - high VTE Device Contraindication: Treatment Not Indicated VTE Drug Contraindication: N/A - Med Ordered
[2022-06-05 11:09] VITALS: BP 132/70; PULSE 81; RESP 20; TEMP 37.1; O2SAT 99
[2022-06-05] MEDS: Loperamide HCl 2 MG CAPSULE PO (13:37)
--- NOTE | 2022-06-05 14:45 | PM.DS ---
DS: Providers Provider Date of Service: 06/05/22 Date of admission: 06/01/22 21:39 Primary care physician: Ngoc Fung MD Consults: 06/01/22 21:39 Consult to Gastroenterology Routine Consulting Provider: Cher Castro Reason for consultation: colitis; ?neoplasm at hepatic flexure DS: Diagnosis Discharge Diagnosis (1) Colitis: Status: Acute DS: Summary Hospital Course Hospital Course: Chief Complaint: Diarrhea 47-year-old male with a past medical history of peptic ulcer disease, GERD, colonic polyps, tobacco dependence, depression, internal hemorrhoids presented to the hospital today with a chief complaint of nausea/abdominal pain and diarrhea.? Patient mentioned that on Friday he had changes food, since then he has been having nausea vomiting, diarrhea with abdominal pain.? Abdominal pain severe in intensity, 10/10, crampy in nature, slightly improves after bowel movement. Mentions he has history of peptic ulcer disease and has had endoscopy and colonoscopy. Reports he has lost significant weight loss in past 4 months. Denies any fever chills cough or sputum production.? Denies any chest pain or palpitations.? Reports decreased oral intake.? Review of all other systems is negative except mentioned above ER course: Per ER team patient CT scan consistent with colitis.? Given IV antibiotics.? Admitted to the hospital for further management. Hospital course: He presented with abdominal pain, n/v diarrhea leukocytosis of 17 rising to [address] of the abdomen and pelvis showed Significant wall thickening of the ascending colon and hepatic flexure which could be associated with colitis or an underlying neoplasm. He was hydrated with IVF and started on Ceftriaxone and Flagyl IV for infectious colitis and was evaluated by GI with recommendation for possible repeat colonoscopy on outpatient basis. C dif was negative and stool panel was negative for known infectious etiology. Over the course of hospitalization WBC has come down to normal at 8, no fever overall feels better. Diarrhea persists but is better and is being symptomatic treated with immodium. He has a follow up appointment with Dr. Garduno in 2 days on Thursday 06/07.. He is aware of this Time Spent with Patient Time attestation: Total time spent providing and/or coordinating discharge services: Discharge coordination time: Greater than 30 minutes Quality: Safe Use of Opioids Does Pt have an Active Cancer Diagnosis on the Problem List?: No Quality: Stroke Does the patient have a stroke diagnosis?: No Physical Exam Vital Signs: Vital Signs: Last Vital Signs Temp 98.8 F 06/05/22 11:09 Pulse 81 06/05/22 11:09 Resp 20 06/05/22 11:09 BP 132/70 06/05/22 11:09 Pulse Ox 99 06/05/22 11:09 O2 Del Method 06/05/22 11:09 BMI result Body Mass Index 17.9 DS: Data Data Completed and Pending Labs on day of discharge: Preliminary micro results at discharge 06/01/22 22:09 Blood Culture - Preliminary Blood - Venous No growth after 48 hours. Discharge Plan Discharge Anticipated Discharge Date/Time: 06/05/22 14:39 Patient Disposition: Home, Self-Care Discharge Diagnosis: Infectious colitis Referrals: Ngoc Fung MD [Primary Care Provider] - 1 Week Discharge Medications: New cefuroxime axetil 500 mg tablet 500 mg PO BID 5 Days Qty: 10 0RF metronidazole 500 mg tablet 250 mg PO BID Qty: 10 0RF loperamide 2 mg Capsule 2 mg PO Q6H PRN (Reason: Diarrhea) Qty: 30 0RF oxycodone 5 mg tablet 5 mg PO Q6H PRN (Reason: pain (scale score 7-10)) Qty: 14 0RF Rx Instructions: Partial Fill upon patient request. Continued ondansetron 4 mg tablet,disintegrating 4 mg PO Q6H Qty: 30 0RF Hold Instructions: Doctor's Order lansoprazole 30 mg capsule,delayed release(DR/EC) 30 mg PO BID Qty: 90 0RF Rx Instructions: Take at 8 am and 8 pm on empty stomach and eat 15 mins later famotidine 40 mg tablet 1 tab PO BEDTIME metoclopramide HCl [Reglan] 10 mg tablet 10 mg PO TIDAC sucralfate 1 gram tablet 1 tab PO BEDTIME diclofenac sodium 1 % gel 2 g topical QID PRN (Reason: elbow pain ) Qty: 100 0RF Rx Instructions: apply to single elbow, wrist or hand; for hand includes palm/fingers/back of hand ketotifen fumarate [Allergy Eye (ketotifen)] 0.025 % (0.035 %) drops 1 drp ophthalmic (eye) BID Qty: 5 6RF Rx Instructions: administer at least 8 hours apart megestrol 40 mg tablet 40 mg PO DAILY Qty: 30 3RF mirtazapine 15 mg tablet 15 mg PO BEDTIME Qty: 30 3RF bisacodyl [Dulcolax (bisacodyl)] 5 mg tablet,delayed release (DR/EC) 10 mg PO BEDTIME 30 Days Qty: 60 6RF Discharge Orders: Discharge Order (Routine); Ordered 06/05/22 Ordered By: Andi Jane Diet: Advance to usual diet Activity on Discharge: As tolerated Stand Alone Forms: Patient Portal Discharge page Care Plan Goals: Full recovery from colitis Health Concerns: Colitis, diarrhea, abnormal CT Plan of Treatment: Take Ceftin and Flagyl as recommended and follow up with Dr. Garduno on Thursday 06/07, drink plenty of fluid Assessment: as above
--- NOTE | 2022-06-05 15:01 | MHC.CM.PN ---
PATIENT IS DC HOME TODAY - SELF CARE
== END 2022-06-05 15:47 | disposition home or self-care (01) | DRG 249 ==
LOC: HO.ED 21:57 → HO.EDOVER 22:12 → HO.S3 06-02 11:16
PROVIDERS: Internal Medicine; Admitting Provider Hospitalist; Emergency Provider Emergency Medicine Emergency Medical Services; PCP Internal Medicine; Visit Provider Internal Medicine
DX: A09 Infectious gastroenteritis and colitis, unspecified (principal); E44.0 Moderate protein-calorie malnutrition; D37.4 Neoplasm of uncertain behavior of colon; K21.9 Gastro-esophageal reflux disease without esophagitis; F17.290 Nicotine dependence, other tobacco product, uncomplicated; Z20.822 Contact with and (suspected) exposure to COVID-19; Z68.1 Body mass index [BMI] 19.9 or less, adult; Z71.6 Tobacco abuse counseling; Z87.11 Personal history of peptic ulcer disease; Z79.899 Other long term (current) drug therapy
CPT/HCPCS: 36415; 74176; 80048; 80053; 81001; 82105; 82378; 82947; 83605; 85025; 85027; 87040; 87147; 87205; 87493; 87507; 87635; 89055; 99218; 99285; J0696; J1170; J1650; J2405

== ENCOUNTER → 2022-06-07 09:34 | Outpatient (BNVA) | payer OTHER, SELFPAY | PROVIDERS: PCP Internal Medicine; Visit Provider Internal Medicine Gastroenterology | DX: K52.9 Noninfective gastroenteritis and colitis, unspecified (principal) | CPT/HCPCS: 99212 ==

== ENCOUNTER 2022-06-10 09:36 | Outpatient (REF) | payer OTHER, SELFPAY | END 2022-06-10 09:37 | disposition home or self-care (01) | LOC: HO.US 09:36 | PROVIDERS: Visit Provider Internal Medicine Gastroenterology | DX: Z13.89 Encounter for screening for other disorder (principal) ==

== ENCOUNTER 2022-06-15 23:27 | Emergency (ER) | payer OTHER, SELFPAY ==
[2022-06-15 23:34] VITALS: BP 138/87; PULSE 110; RESP 18; TEMP 36.7; O2SAT 98; BMI 18.0
[2022-06-15 23:54] LABS: MANUAL DIFF FLAG NO
[2022-06-15 23:55] LABS: Basophils Absolute Auto 0.1 X10*3/uL (0.0-0.2); Basophils Percent Auto 0.7 % (0-2); Eosinophils Absolute Auto 0.3 X10*3/uL (0.0-0.4); Eosinophils Percent Auto 3.4 % (0-4); Hematocrit 39.1 % (42.0-52.0); Hemoglobin 13.3 g/dl (14.0-18.0); Imm Gran Abs Auto 0.04 X10*3/uL (0.00-0.03); Imm Gran Pct Auto 0.4 % (0.0-0.4); Lymphocytes Absolute Auto 2.4 X10*3/uL (1.2-4.9); Lymphocytes Percent Auto 26.4 % (20-40); Mean Corpuscular Hemoglobin 31.3 pg (27.0-33.0); Mean Platelet Volume 8.4 fL (9.4-12.4); Monocytes Percent Auto 10.9 % (2-11); Neutrophils Absolute Auto 5.4 x10*3/uL (2.0-8.3); Neutrophils Percent Auto 58.2 % (45-73); Platelet Count 443 X10*3/uL (160-400); Red Blood Count 4.25 X10*6/uL (4.60-5.80); Red Cell Distribution Width 13.2 % (11.0-16.0); White Blood Count 9.2 X10*3/uL (4.8-10.8)
[2022-06-16 00:18] LABS: Alanine Aminotransferase 46 U/L (0-40); Albumin Level 4.1 g/dL (3.5-5.0); Alkaline Phosphatase 82 U/L (39-117); Anion Gap 17 (12-20); Aspartate Amino Transferase 23 U/L (5-37); Bilirubin Direct 0.2 mg/dL (0.0-0.5); Bilirubin Total 0.5 mg/dL (0.0-1.0); Blood Urea Nitrogen 16 mg/dL (9-16); Calcium 9.3 mg/dL (8.4-10.2); Carbon Dioxide 24 mmol/L (22-29); Chloride 102 mmol/L (96-108); Estimated Glomerular Filt Rate > 60; Glucose Random 141 mg/dL (60-115); Lipase 35 U/L (8-78); Potassium 4.5 mmol/L (3.3-5.1); Sodium 138 mmol/L (135-145); Total Protein 6.8 g/dL (6.5-8.0)
--- NOTE | 2022-06-16 00:20 | ED.ABDPAIN ---
HPI - Abdominal Pain General Chief Complaint: Abdominal Pain Stated Complaint: colitis Time Seen by Provider: 06/16/22 00:19 Source: patient Mode of arrival: ambulatory Limitations: no limitations History of Present Illness HPI narrative: Patient history of anxiety and depression weight loss erosive gastritis and chronic abdominal pain for years , had colonoscopy and endoscopy, was admitted on 06/01 for? infective colitis although the cultures were negative comes here as having the pain again having 1 or 2 loose bowels lot of bloating and increased anxiety, subjective fever and chills feels increased anxiety with poor sleep Related Data Home Medications Medication Instructions Recorded Confirmed famotidine 40 mg tablet 1 tab PO BEDTIME 06/02/22 06/02/22 metoclopramide HCl 10 mg tablet 10 mg PO TIDAC 06/02/22 06/02/22 (Reglan) sucralfate 1 gram tablet 1 tab PO BEDTIME 06/02/22 06/02/22 Previous Rx's Medication Instructions Recorded diclofenac sodium 1 % topical gel 2 g topical QID PRN elbow pain 11/29/21 #100 grams ketotifen fumarate 0.025 % (0.035 1 drp ophthalmic (eye) BID #5 mL 03/01/22 %) eye drops (Allergy Eye (ketotifen)) ondansetron 4 mg disintegrating 4 mg PO Q6H #30 tabs 04/02/22 tablet lansoprazole 30 mg capsule,delayed 30 mg PO BID #90 caps 04/17/22 release bisacodyl 5 mg tablet,delayed 10 mg PO BEDTIME 30 days #60 tabs 04/25/22 release (Dulcolax (bisacodyl)) megestrol 40 mg tablet 40 mg PO DAILY #30 tabs 05/23/22 mirtazapine 15 mg tablet 15 mg PO BEDTIME #30 tabs 05/23/22 cefuroxime axetil 500 mg tablet 500 mg PO BID 5 days #10 tabs 06/05/22 loperamide 2 mg capsule 2 mg PO Q6H PRN Diarrhea #30 caps 06/05/22 metronidazole 500 mg tablet 250 mg PO BID #10 tabs 06/05/22 oxycodone 5 mg tablet 5 mg PO Q6H PRN pain (scale score 06/05/22 7-10) #14 tabs dicyclomine 20 mg tablet 20 mg PO QID PRN abdominal pain 06/16/22 #20 tabs lorazepam 1 mg tablet (Ativan) 1 mg PO BID PRN anxiety #20 tabs 06/16/22 Allergies Allergy/AdvReac Type Severity Reaction Status Date / Time No Known Allergies Allergy Verified 06/07/22 09:39 Review of Systems Review of Systems Yes all other systems are reviewed and are negative [facility] Past Medical History Medical History Chronic GERD Diarrhea Granular cell tumor Not ready to quit smoking Surgical History Hx of colonoscopy No pertinent past surgical history Family History Family History Maternal Aunt No problems noted. Maternal Aunt No problems noted. Social History Social History Household Members: Spouse Housing: Apartment Do you presently have visiting nurse or other home services: No Patient Tobacco Use Status: Never used Tobacco Tobacco use type: Cigar Cigarettes Per Day: 3 Years Smoked: 2 e-Cigarette/Vaping Use: Never Used Use of substances other than those prescribed or required for medical reasons: No Advance Directives: No service: No Current occupational status: employed Cognitive needs: No Hearing needs: No Vision needs: No Physical Exam ED Vital Signs: Vital Signs - 24 hr 06/15/22 23:34 06/16/22 01:11 Temperature 98.1 F 99.5 F Pulse Rate 110 H 96 Respiratory Rate 18 12 Blood Pressure 138/87 131/73 Pulse Oximetry 98 100 Oxygen Delivery Method Room Air Room Air BMI result Body Mass Index 18.0 Appearance: Alert. Oriented X3. No acute distress. Thin built Eyes: PERRLA, No Nystagmus ENT: Pharynx normal. Oral Mucosa moist Neck: Normal inspection. Neck supple. CVS: Normal heart rate and rhythm. Pulses normal. Respiratory: No respiratory distress. Equal air entry bilateral, no wheezing/rales/rhonchi Abdomen: Soft , diffuse tenderness Bowel sounds are present, no mass palpable, no CVA tenderness Skin: Skin warm and dry. Normal skin color. Normal skin turgor. Extremities: No lower extremity edema. No calf tenderness Neuro: Oriented X 3. MDM - Abdominal Pain MDM Narrative Medical decision making narrative: Patient clinically has IBS with increased anxiety and stress felt better after taking Ativan and Bentyl. Will discharge patient home on Bentyl and Ativan advised to follow with parks worker for further evaluation Medical Records Attestation: I reviewed the patient's medical records. Lab Data Attestation: I reviewed the patient's lab results. Result diagrams: 06/15/22 23:50 06/15/22 23:50 Labs: Lab Results 06/15/22 06/15/22 06/16/22 Range/Units 23:50 23:50 01:21 WBC 9.2 (4.8-10.8) X10*3/uL RBC 4.25 L (4.60-5.80) X10*6/uL Hgb 13.3 L (14.0-18.0) g/dl Hct 39.1 L (42.0-52.0) % MCV 92.0 (80.0-98.0) fL MCH 31.3 (27.0-33.0) pg MCHC 34.0 (31.0-36.0) g/dl RDW 13.2 (11.0-16.0) % Plt Count 443 H D (160-400) X10*3/uL MPV 8.4 L (9.4-12.4) fL Immature Gran % (Auto) 0.4 (0.0-0.4) % Neut % (Auto) 58.2 (45-73) % Lymph % (Auto) 26.4 (20-40) % Alfalfa % (Auto) 10.9 (2-11) % Eos % (Auto) 3.4 (0-4) % Baso % (Auto) 0.7 (0-2) % Lymph # (Auto) 2.4 (1.2-4.9) X10*3/uL Alfalfa # (Auto) 1.0 (0.1-1.2) X10*3/uL Eos # (Auto) 0.3 (0.0-0.4) X10*3/uL Baso # (Auto) 0.1 (0.0-0.2) X10*3/uL Abs Immat Gran (auto) 0.04 H (0.00-0.03) X10*3/uL Absolute Neuts (auto) 5.4 (2.0-8.3) x10*3/uL Absolute Nucleated RBC 0.000 (0.0-0.012) X10*3/uL Nucleated RBC % (auto) 0.0 (0.0-0.2) /100WBC Sodium 138 (135-145) mmol/L Potassium 4.5 (3.3-5.1) mmol/L Chloride 102 (96-108) mmol/L Carbon Dioxide 24 (22-29) mmol/L Anion Gap 17 (12-20) BUN 16 (9-16) mg/dL Creatinine 0.74 (0.5-1.4) mg/dL Estim Creat Clear Calc 105.0 Estimated GFR > 60 Random Glucose 141 H (60-115) mg/dL Calcium 9.3 (8.4-10.2) mg/dL Total Bilirubin 0.5 (0.0-1.0) mg/dL Direct Bilirubin 0.2 (0.0-0.5) mg/dL AST 23 D (5-37) U/L ALT 46 H (0-40) U/L Alkaline Phosphatase 82 (39-117) U/L Total Protein 6.8 (6.5-8.0) g/dL Albumin 4.1 (3.5-5.0) g/dL Lipase 35 (8-78) U/L Urine Color Yellow Urine Appearance Clear Urine pH 5.5 (5.0-9.0) Ur Specific [place] 1.020 (1.005-1.025) Urine Protein Trace (Neg-Trace) mg/dL Urine Glucose (UA) Negative (Negative) mg/dL Urine Ketones Negative (Negative) mg/dL Urine Blood Negative (Negative) Urine Nitrite Negative (Negative) Ur Leukocyte Esterase Negative (Negative) Urine RBC 0-2 (0-2) /HPF Urine WBC 0-5 (0-5) /HPF Ur Squamous Epith Cells 0-2 (0-2) /HPF Urine Bacteria None Seen (None Seen) Hyaline Casts 0-2 (0-2) /LPF Discharge Plan Discharge Clinical Impression: Abdominal pain, chronic, generalized, Irritable bowel syndrome Patient Disposition: Home, Self-Care Instructions: Irritable Bowel Syndrome (ED), Abdominal Pain (ED) Additional Instructions: Take medication as prescribed Follow with parks worker as scheduled Prescriptions: New dicyclomine 20 mg tablet 20 mg PO QID PRN (Reason: abdominal pain) Qty: 20 0RF lorazepam [Ativan] 1 mg tablet 1 mg PO BID PRN (Reason: anxiety) Qty: 20 0RF No Action ondansetron 4 mg tablet,disintegrating 4 mg PO Q6H Qty: 30 0RF Hold Instructions: Doctor's Order lansoprazole 30 mg capsule,delayed release(DR/EC) 30 mg PO BID Qty: 90 0RF Rx Instructions: Take at 8 am and 8 pm on empty stomach and eat 15 mins later famotidine 40 mg tablet 1 tab PO BEDTIME metoclopramide HCl [Reglan] 10 mg tablet 10 mg PO TIDAC sucralfate 1 gram tablet 1 tab PO BEDTIME cefuroxime axetil 500 mg tablet 500 mg PO BID 5 Days Qty: 10 0RF metronidazole 500 mg tablet 250 mg PO BID Qty: 10 0RF loperamide 2 mg Capsule 2 mg PO Q6H PRN (Reason: Diarrhea) Qty: 30 0RF oxycodone 5 mg tablet 5 mg PO Q6H PRN (Reason: pain (scale score 7-10)) Qty: 14 0RF Rx Instructions: Partial Fill upon patient request. diclofenac sodium 1 % gel 2 g topical QID PRN (Reason: elbow pain ) Qty: 100 0RF Rx Instructions: apply to single elbow, wrist or hand; for hand includes palm/fingers/back of hand ketotifen fumarate [Allergy Eye (ketotifen)] 0.025 % (0.035 %) drops 1 drp ophthalmic (eye) BID Qty: 5 6RF Rx Instructions: administer at least 8 hours apart megestrol 40 mg tablet 40 mg PO DAILY Qty: 30 3RF mirtazapine 15 mg tablet 15 mg PO BEDTIME Qty: 30 3RF bisacodyl [Dulcolax (bisacodyl)] 5 mg tablet,delayed release (DR/EC) 10 mg PO BEDTIME 30 Days Qty: 60 6RF
[2022-06-16] MEDS: LORazepam 1 MG TABLET PO (01:10)
[2022-06-16] MEDS: Dicyclomine HCl 10 MG CAPSULE 20 MG PO (01:10)
[2022-06-16 01:11] VITALS: BP 131/73; PULSE 96; RESP 12; TEMP 37.5; O2SAT 100
[2022-06-16 01:27] LABS: Appearance Urine Clear; Color Urine Yellow; Glucose Urine UA Negative (Negative); Leukocyte Esterase Urine Negative (Negative); Nitrite Urine Negative (Negative); PH 5.5 (5.0-9.0); Urine Blood Negative (Negative); Urine Ketones Negative (Negative); Urine Protein Trace mg/dL (Neg-Trace)
[2022-06-16 01:32] LABS: Bacteria Urine None Seen (None Seen); Hyaline Casts Urine 0-2 /LPF (0-2); RBC Urine 0-2 /HPF (0-2); Squamous Epithelial Cell Urine 0-2 /HPF (0-2); WBC Urine 0-5 /HPF (0-5)
--- NOTE | 2022-06-16 01:44 | PC.NURSE ---
Discharged instructions reviewed with pt and family at bedside. Pt verbalizes understanding.
== END 2022-06-16 01:45 | disposition home or self-care (01) ==
PROVIDERS: Emergency Provider Internal Medicine; PCP Internal Medicine
DX: K58.9 Irritable bowel syndrome, unspecified (principal); G89.29 Other chronic pain; F17.210 Nicotine dependence, cigarettes, uncomplicated; Z71.6 Tobacco abuse counseling; Z79.899 Other long term (current) drug therapy
CPT/HCPCS: 36415; 80053; 81001; 82248; 83690; 85025; 99284

== ENCOUNTER 2022-06-28 12:44 | Outpatient (REF) | payer OTHER, SELFPAY ==
--- NOTE | ~2022-06-28 | US_ITS ---
EXAMINATION: US DOPPLER ABDOMEN LIMITED CLINICAL INFORMATION: Abdominal pain and weight loss COMPARISON: None TECHNIQUE: Ultrasound along with color Doppler imaging and spectral analysis was performed of the abdominal aorta and mesenteric vessels. FINDINGS: Abdominal aorta is normal in caliber with normal color flow and duplex arterial waveforms. Velocity measures 84.0 cm/s proximal to the SMA and 77.8 cm/s distal to the SMA. Celiac artery and is not well visualized and no definite flow is seen. Patent flow is seen within the splenic artery with dampened arterial waveforms. The hepatic artery is not well-visualized Superior mesenteric artery demonstrates color-flow aliasing with spectral broadening. Proximal SMA demonstrates peak systolic velocity of 186 cm/s. Mid superior mesenteric artery measures a peak systolic velocity measuring 310 cm/s. Flow is not well seen in the distal superior mesenteric artery. The inferior mesenteric artery demonstrate peak systolic velocity of 304 cm/s. US/US SMA IMPRESSION: Abnormal mesenteric duplex arterial ultrasound. Flow is not well seen in the celiac artery with apparent reconstituted flow in the splenic artery. There is apparent elevated velocity in the mid superior mesenteric artery without flow in the distal superior mesenteric artery. Elevated velocity seen in the celiac artery. Recommend further evaluation with a dedicated CTA given the extensive abnormal findings
[2022-06-28 13:47] LABS: Estimated Average Glucose 120 mg/dL; Hemoglobin A1c % 5.8 %
[2022-06-28 14:04] LABS: Cholesterol 188 mg/dL; Glucose Fasting 98 mg/dL (60-99); HDL Cholesterol 32 mg/dL; LDL Cholesterol Calculated 139 mg/dl; Triglycerides 87 mg/dL
[2022-06-28 14:25] LABS: Vitamin D 25-OH Total 17.4 ng/mL (>30)
== END 2022-06-28 12:45 | disposition home or self-care (01) ==
LOC: HO.US 12:44
PROVIDERS: Absent Provider Internal Medicine; PCP Internal Medicine; Visit Provider Internal Medicine Gastroenterology
DX: Z00.01 Encounter for general adult medical examination with abnormal findings (principal); K52.9 Noninfective gastroenteritis and colitis, unspecified; K21.9 Gastro-esophageal reflux disease without esophagitis; K27.9 Peptic ulcer, site unspecified, unspecified as acute or chronic, without hemorrhage or perforation; R63.6 Underweight
CPT/HCPCS: 36415; 80061; 82306; 82947; 83036; 84443; 93976

== ENCOUNTER 2022-07-23 11:00 | Day surgery (SDC) | payer OTHER, SELFPAY ==
[2022-07-17 11:42] VITALS: BMI 18.7
--- NOTE | 2022-07-22 12:13 | HO.ANESPROP2 ---
Documented by User: Katlin Vyas NP 07/22/22 12:14 HPI - Anesthesia Eval Consult details Narrative: 47yo M for Colonoscopy PMFSH Active Problems Active Problems: All Active Problems (Updated 07/16/22 @ 01:04 by Ngoc Fung MD) Impaired fasting glucose (Acute) Normocytic normochromic anemia (Acute) Mesenteric artery stenosis (Acute) Depression (Acute) Underweight (Acute) Constipation (Acute) Weight loss, abnormal (Acute) Rib pain on left side (Acute) Tinea corporis (Acute) Allergic conjunctivitis (Acute) Peptic ulcer disease (Acute) Chronic GERD (Acute) Past Medical History Medical History Chronic GERD Diarrhea Granular cell tumor Impaired fasting glucose Normocytic normochromic anemia Not ready to quit smoking Family History Family History Maternal Aunt No problems noted. Maternal Aunt No problems noted. Family history of problems with anesthesia: No Surgical History Surgical History Hx of colonoscopy No pertinent past surgical history History of Problems with Anesthesia: No Social History Social History Household Members: Spouse Housing: Apartment Do you presently have visiting nurse or other home services: No Patient Tobacco Use Status: Current everyday Tobacco user Tobacco use type: Cigarette and Cigar Cigarettes Per Day: 2 Years Smoked: 3 Smoked in Last 30 Days: Yes e-Cigarette/Vaping Use: Never Used Use of substances other than those prescribed or required for medical reasons: No Are you DNR?: No Advance Directives: No Advance Directives Information Provided: Yes service: No Current occupational status: employed Cognitive needs: No Hearing needs: No Vision needs: No Meds Allergies Allergy/AdvReac Type Severity Reaction Status Date / Time No Known Allergies Allergy Verified 07/23/22 11:07 Home Medications Medication Instructions Recorded Confirmed Last Taken Type sucralfate 1 gram tablet 1 tab PO BEDTIME 06/02/22 07/23/22 07/23/22 09:00 History Exam Exam Date and Time: July 22, 2022 1213 Height,Weight and Vital Signs: Height 6 ft Weight 62.596 kg Pertinent Lab Results Pertinent Lab Results: Laboratory Tests 06/15/22 06/15/22 23:50 23:50 WBC 9.2 Hgb 13.3 L Hct 39.1 L Plt Count 443 H D Sodium 138 Potassium 4.5 Chloride 102 Carbon Dioxide 24 BUN 16 Creatinine 0.74 Assessment and Plan Assessment Anesthesia Assessment: Chart Reviewed Final Anesthetic Review Family History of Problems with Anesthesia: No History of Problems with Anesthesia: No Documented by User: Ann-Marie Mendoza MD 07/23/22 11:30 PMFSH Past Medical History Medical History Chronic GERD Diarrhea Granular cell tumor Impaired fasting glucose Normocytic normochromic anemia Not ready to quit smoking Family History Family History Maternal Aunt No problems noted. Maternal Aunt No problems noted. Surgical History Surgical History Hx of colonoscopy No pertinent past surgical history Social History Social History Household Members: Spouse Housing: Apartment Do you presently have visiting nurse or other home services: No Patient Tobacco Use Status: Current everyday Tobacco user Tobacco use type: Cigarette and Cigar Cigarettes Per Day: 2 Years Smoked: 3 Smoked in Last 30 Days: Yes e-Cigarette/Vaping Use: Never Used Use of substances other than those prescribed or required for medical reasons: No Are you DNR?: No Advance Directives: No Advance Directives Information Provided: Yes service: No Current occupational status: employed Cognitive needs: No Hearing needs: No Vision needs: No Meds Allergies Allergy/AdvReac Type Severity Reaction Status Date / Time No Known Allergies Allergy Verified 07/23/22 11:07 Home Medications Medication Instructions Recorded Confirmed Last Taken Type sucralfate 1 gram tablet 1 tab PO BEDTIME 06/02/22 07/23/22 07/23/22 09:00 History Exam Airway Mallampati Class: II TM Dist: >3cm Neck ROM: Full Loose/Missing/Broken Teeth: No Heart: RRR Lungs: CTA Assessment and Plan Assessment Anesthesia Assessment: Anesthesia Plan Discussed Final Anesthetic Review NPO: Yes ASA Class: II Final Preanesthetic Review: Meds/Allgs Chart Reviewed, Consent Obtained/Reviewed and Anes Risks/Benef Reviewed Patient Risk: Low Procedure Risk: Low Anesthetic Plan Anesthetic Plan: MAC: Disposition: Standard PACU
[2022-07-23 11:07] VITALS: BP 126/69; PULSE 87; RESP 16; TEMP 37.2; O2SAT 100; BMI 18.7
[2022-07-23] MEDS: Lactated Ringers 1,000 ML 100 ML IVCONT (11:24)
--- NOTE | 2022-07-23 11:26 | P.HPSUR_ITS ---
Pre-Procedural Eval Section A Date of Service: 07/23/22 Section B Chief Complaint: Noninfective gastroenteritis and colitis, diarrhea Details of Present Illness: recurrent ulcers, right sided colitis, Relevant Family History (Specify if Yes): No Relevant Social History: Tobacco Use (cigar ) Present Medications: see Short Stay Collaborative assessment Medical History: Significant History (Chronic GERD Diarrhea Granular cell tumor Impaired fasting glucose Normocytic normochromic anemia Not ready to quit smoking) History of Previous Operations: Relevant previous surgery/procedure and date(s) (Hx of colonoscopy) Allergies: Allergies Allergy/AdvReac Type Severity Reaction Status Date / Time No Known Allergies Allergy Verified 07/23/22 11:07 Review of Systems Sugical H&P ROS: Negative: Constitution, Cardiovascular, Respiratory, N eurological, Psychiatric, Hem-Onc, Allergic/Immunologic, Gastrointestinal, Genitourinary, Musculoskeletal, Integumentary, Endocrine and Eyes/Ears/Nose/Throat Exam Surgical H&P Exam: Normal: HEENT, Normal: Heart, Normal: Lungs, Normal: Extremities, Normal: Abdomen, Normal: Skin and Normal: Neurological Plan Diagnosis/Plan: Unchanged I have reviewed the history and physical and performed a pertinent physical examination on my patient. No changes have occurred unless specified.
--- NOTE | 2022-07-23 11:33 | W.PM.OPN ---
Operative Note Operative Note Date of Service: 07/23/22 Narrative: Operative Information Procedure Description: Colonoscopy Indication: weight loss, hx of colitis Anesthesia: MAC COLONOSCOPY Instrument: Olympus variable stiffness pediatric scope 190L Colonoscopy Monitoring: Vital signs and clinical assessment, continuous EKG monitoring, Pulse oximetry, Carbon Dioxide monitoring and blood pressure monitoring were done throughout the procedure. Colon withdrawal time was 11 minutes. Procedure: The patient was placed in the left lateral decubitis position and pre-procedure medications were administered. After a digital rectal examination of the ano-rectum, the video colonoscope was inserted into the rectum and advanced through the colon to the cecum/TI. The colonoscope was slowly withdrawn in a retrograde panoramic fashion and the colon mucosa was carefully examined including a retroflexed view of the rectum. Findings and interventions are described below. Procedure Difficulty: moderate, unable to intubate TI due to location Findings: Terminal Ileum- unable to intubate Cecum: 10 mm sessile polyp removed with cold snare Random right sided bx taken, also at hepatic flexure area there were 2 folds that appeared to have contiguous villiform appearance consistent with adenomatous invasion with full circumference involved, bx were taken. red ink was injected few cm proximal and distal to these folds. Ascending Colon: normal Transverse Colon -normal Descending Colon:normal Sigmoid Colon: normal, random bx taken Rectum: Retroflexion with mediumz sized internal hemorrhoids, grade I Anorectum - normal Colon preparation: [place] Bowel Preparation Scale Right colon; 1-2 Transverse colon: 2 Left colon; 3 (0 = Unprepared colon segment with mucosa not seen due to solid stool that cannot be cleared. 1 = Portion of mucosa of the colon segment seen, but other areas of the colon segment not well seen due to staining, residual stool and/or opaque liquid. 2 = Minor amount of residual staining, small fragments of stool and/or opaque liquid, but mucosa of colon segment seen well. 3 = Entire mucosa of colon segment seen well with no residual staining, small fragments of stool or opaque liquid) Impression and Post Procedure Diagnosis: polyps internal hemorrhoids Plan: High fiber diet leaflet Avoid straining at stool, epsom salts and sitz bath, anusol supps or cream Repeat Colonoscopy in 1 year or earlier if clinically indicated If bx confirm the fold is adenomatous or villous polyp tissue then I would refer to surgery given that 2 folds are involved with almost circumferential invasion. Above findings were reviewed with the patient and relevant handouts were provided if indicated.
[2022-07-23 12:18] VITALS: BP 143/91; PULSE 94; RESP 16; TEMP 37.3; O2SAT 100
[2022-07-23 12:43] VITALS: BP 138/82; PULSE 89; RESP 17; TEMP 37.2; O2SAT 100
== END 2022-07-23 12:50 | disposition home or self-care (01) ==
PROVIDERS: PCP Internal Medicine; Visit Provider Internal Medicine Gastroenterology
PROC: 0DJD8ZZ Inspection of Lower Intestinal Tract, Via Natural or Artificial Opening Endoscopic (ICD-10-PCS; CPT 45378; principal; 2022-07-23 12:00)
DX: K52.9 Noninfective gastroenteritis and colitis, unspecified (principal); R63.4 Abnormal weight loss; Z68.1 Body mass index [BMI] 19.9 or less, adult; K63.5 Polyp of colon; K64.0 First degree hemorrhoids; K64.4 Residual hemorrhoidal skin tags; D64.9 Anemia, unspecified; R73.01 Impaired fasting glucose; Z79.899 Other long term (current) drug therapy; F17.210 Nicotine dependence, cigarettes, uncomplicated
CPT/HCPCS: 45385; 45380; 45381; 88305

== ENCOUNTER 2022-08-05 07:25 | Outpatient (REF) | payer OTHER, SELFPAY ==
--- NOTE | ~2022-08-05 | CT_ITS ---
EXAMINATION: CT ANGIOGRAM ABDOMEN AND PELVIS CLINICAL INFORMATION: Abnormal weight loss COMPARISON: CT abdomen pelvis on 06/01/2022 TECHNIQUE: Multiple axial images were obtained through the abdomen and pelvis following the administration of 100 mL of Omnipaque 350 intravenous contrast. Images were reviewed on a dedicated 3-D workstation. This CT examination was performed using dose optimization techniques as appropriate, variously including the following: *Automated exposure control *Adjustment of mA and/or kV according to patient size (this includes techniques or standardized protocols for targeted exams where dose is matched to indication/reason for exam; i.e. extremities or head) *Use of iterative reconstruction technique DLP: 201 mGy-cm FINDINGS: Lower chest: Unremarkable. There are no pleural effusions. Liver: Normal in size and attenuation. No focal lesions. Gallbladder and bile ducts: The gallbladder is normal. No intrahepatic or extrahepatic biliary ductal dilatation. Spleen: Normal in size and attenuation. Pancreas: Unremarkable. Adrenal glands: Unremarkable. Right kidney: The right kidney is normal. There is no hydronephrosis or hydroureter. Left kidney: The left kidney is normal. There is no hydronephrosis or hydroureter. Lymph nodes: There is no lymphadenopathy in the abdomen or pelvis. Gastrointestinal tract: The stomach, small, and large bowel are normal in course and caliber. Urinary bladder: The bladder is normal. Pelvic organs: Coarse calcifications in the prostate. Vasculature: The abdominal aorta is normal in course and caliber. The origin of the celiac artery is not visualized. The celiac artery fills retrograde via an enlarged GDA. There is stenosis and noncalcific plaque versus wall thickening of the proximal SMA resulting in moderate stenosis Additional findings: There is no intraperitoneal free air or fluid. Soft tissues: Unremarkable. Osseous structures: No lytic or blastic lesions identified. CT/CT angio abdomen pelvis IMPRESSION: 1. 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 2. Stenosis and noncalcific plaque versus wall thickening of the proximal SMA resulting in moderate stenosis.
[2022-08-05] MEDS: iohexoL 350 MG/ML 100 ML INFUS..BTL 85 ML IV (08:05)
== END 2022-08-05 07:26 | disposition home or self-care (01) ==
LOC: HO.CT 07:25
PROVIDERS: PCP Internal Medicine; Visit Provider Internal Medicine Gastroenterology
DX: R63.4 Abnormal weight loss (principal)
CPT/HCPCS: 74174; Q9967

== ENCOUNTER → 2022-08-23 10:36 | Outpatient (BNVA) | payer OTHER, SELFPAY | PROVIDERS: PCP Internal Medicine; Visit Provider Internal Medicine Gastroenterology | DX: K55.1 Chronic vascular disorders of intestine (principal) | CPT/HCPCS: 99212 ==

== ENCOUNTER → 2022-09-17 11:56 | Outpatient (BNVA) | payer OTHER, SELFPAY | PROVIDERS: PCP Internal Medicine; Visit Provider Surgery Vascular Surgery | DX: K55.1 Chronic vascular disorders of intestine (principal) | CPT/HCPCS: 99202 ==

== ENCOUNTER 2022-09-25 15:07 | Emergency (ER) | payer OTHER, SELFPAY ==
--- NOTE | ~2022-09-25 | CT_ITS ---
EXAMINATION: CT ABDOMEN AND PELVIS WITH CONTRAST CLINICAL INFORMATION: Epigastric and lower abdominal pain. COMPARISON: CT abdomen pelvis 08/05/2022 TECHNIQUE: Multidetector volumetric images were obtained from the superior aspect of the liver through the pubic symphysis following administration 85 mL of Omnipaque 350 intravenous contrast. Sagittal and coronal reformatted images were obtained on the technologist's workstation. Oral contrast: No This CT examination was performed using dose optimization techniques as appropriate, variously including the following: *Automated exposure control *Adjustment of mA and/or kV according to patient size (this includes techniques or standardized protocols for targeted exams where dose is matched to indication/reason for exam; i.e. extremities or head) *Use of iterative reconstruction technique DLP: 401 mGy-cm FINDINGS: LUNG BASES: The visualized lung bases are unremarkable. LIVER, GALLBLADDER, AND BILIARY TREE: The liver is normal in size, shape, and attenuation. No focal hepatic lesion or biliary ductal dilatation is present. The gallbladder is unremarkable with no evidence of radiopaque gallstones, gallbladder wall thickening, or obvious pericholecystic inflammatory changes. PANCREAS: Unremarkable. SPLEEN: Unremarkable. ADRENAL GLANDS: Unremarkable. KIDNEYS AND URETERS: The kidneys are normal in size, shape, and attenuation. No hydronephrosis, hydroureter, or calculi seen. No perinephric stranding. BLADDER: Borderline mild bladder wall thickening. No focal bladder wall thickening or calculi. GASTROINTESTINAL TRACT: No dilated bowel loops. No bowel wall thickening. Normal appendix. No free air or ascites. ABDOMINAL WALL: No significant hernia is appreciated. LYMPH NODES: No lymphadenopathy. VASCULAR: Normal caliber abdominal aorta. Mild mixed calcified noncalcified plaque in the abdominal aorta and common iliac arteries noted. Occlusion of the celiac artery origin and proximal SMA narrowing better seen on prior CTA. PELVIC VISCERA: Prostate gland appears mildly enlarged measuring approximately 4.3 x 3.7 x 3.9 cm in size. OSSEOUS STRUCTURES: No acute fracture or suspicious osseous lesion. CT/CT abdomen pelvis w IV con IMPRESSION: 1. No acute intra-abdominal process identified. 2. Mild prostatomegaly and mild diffuse bladder wall thickening. Correlate clinically with signs or symptoms of chronic bladder outlet obstruction.
[2022-09-25 15:20] VITALS: BP 103/74; PULSE 82; RESP 17; TEMP 36.6; O2SAT 99
--- NOTE | 2022-09-25 15:20 | ED_ITS ---
HPI - Abdominal Pain General Chief Complaint: Abdominal Pain <MARISOL Anthony - Last Filed: 09/25/22 18:27> Stated Complaint: abdominal pain <MARISOL Anthony - Last Filed: 09/25/22 18:27> Time Seen by Provider: 09/25/22 19:01 <MARISOL Anthony - Last Filed: 09/25/22 18:27> Source: patient <MARISOL Stratton - Last Filed: 09/25/22 22:08> Mode of arrival: ambulatory <MARISOL Stratton - Last Filed: 09/25/22 22:08> Limitations: no limitations <MARISOL Stratton Last Filed: 09/25/22 22:08> History of Present Illness HPI narrative: This is a 47-year-old male history of IBD, superior mesenteric artery sclerosis, depression, constipation, GERD, peptic ulcer disease with esophagitis, gastritis and duodenitis on EGD, mesenteric artery atherosclerosis (seen by Diana and going to specialist [facility] 10/07), inflammatory bowel disease on mesalamine who follows with Dr. Garduno presenting to the emergency department with epigastric pain described as a burning sensation that radiates up to his chest, he tells me he does not of this is chest pain or abdominal pain. Unable to tell me what makes it better or worse. He tells me it is worse at night when he is lying down. He also reports frequent vomiting and nausea. This has all been going on for 2 days. Denies shortness of breath, fevers, chills, headache, vision changes, dizziness, weakness. <MARISOL Stratton Last Filed: 09/25/22 22:08> Related Data Home Medications: Home Medications Medication Instructions Recorded Confirmed sucralfate 1 gram tablet 1 tab PO BEDTIME 06/02/22 07/23/22 Previous Rx's Medication Instructions Recorded diclofenac sodium 1 % topical gel 2 g topical QID PRN elbow pain 11/29/21 #100 grams ketotifen fumarate 0.025 % (0.035 1 drp ophthalmic (eye) BID #5 mL 03/01/22 %) eye drops (Allergy Eye (ketotifen)) lansoprazole 30 mg capsule,delayed 30 mg PO BID #90 caps 04/17/22 release megestrol 40 mg tablet 40 mg PO DAILY #30 tabs 05/23/22 loperamide 2 mg capsule 2 mg PO Q6H PRN Diarrhea #30 caps 06/05/22 lorazepam 1 mg tablet (Ativan) 1 mg PO BID PRN anxiety #20 tabs 06/16/22 mesalamine 0.375 gram 1.5 g PO QAM #120 caps 08/23/22 capsule,extended release 24 hr (Apriso) ondansetron 4 mg disintegrating 4 mg PO Q8H PRN nausea and 08/23/22 tablet vomiting #30 tabs peg-electrolyte solution 420 gram 240 ml PO Q10M #4,000 mL 08/23/22 oral solution aluminum-mag hydroxide-simethicone 5 ml PO 5XD PRN dyspepsia #355 mL 09/25/22 200 mg-200 mg-20 mg/5 mL oral susp (Maalox Advanced) <MARISOL Anthony - Last Filed: 09/25/22 18:27> Allergies/Adverse Reactions: Allergies Allergy/AdvReac Type Severity Reaction Status Date / Time No Known Allergies Allergy Verified 09/25/22 15:23 <MARISOL Anthony - Last Filed: 09/25/22 18:27> Review of Systems Review of Systems Constitutional : No Weight loss, No Fever, No Chills, No Fatigue, No Malaise ENT/Mouth : No sore throat, No Rhinorrhea Eyes: No Eye Pain, No Swelling, No Redness Cardiovascular : + Chest Pain, No SOB, No Dyspnea on Exertion, No Orthopnea, No Edema, No Palpitations Respiratory : No Cough, No Sputum, No Wheezing Gastrointestinal : + Nausea, + Vomiting, No Diarrhea, No Constipation, + abdominal Pain, No Hematochezia, No Melena Genitourinary : No Dysuria, No Urinary Frequency, No Hematuria, Musculoskeletal : No joint pain, No Myalgias, No Joint Swelling Skin : No Skin Lesions, No rash Neuro : No Weakness, No Numbness, No Dizziness, No Headache Psych : No Anxiety/Panic, No Depression All other systems reviewed and are negative <MARISOL Stratton Last Filed: 09/25/22 22:08> Yes all other systems are reviewed and are negative <MARISOL Stratton Last Filed: 09/25/22 22:08> [facility] Past Medical History Attestation statement: The following information was validated with the patient. <MARISOL Stratton - Last Filed: 09/25/22 22:08> Source: old records reviewed and nursing notes reviewed <MARISOL Stratton - Last Filed: 09/25/22 22:08> Medical History: Medical History Chronic GERD Diarrhea Granular cell tumor Impaired fasting glucose Normocytic normochromic anemia Not ready to quit smoking <MARISOL Anthony - Last Filed: 09/25/22 18:27> Surgical History: Surgical History Hx of colonoscopy No pertinent past surgical history <MARISOL Anthony - Last Filed: 09/25/22 18:27> Family History Family History: Family History Maternal Aunt No problems noted. Maternal Aunt No problems noted. <MARISOL Anthony - Last Filed: 09/25/22 18:27> Social History Social History: Social History Household Members: Spouse Housing: Apartment Do you presently have visiting nurse or other home services: No Patient Tobacco Use Status: Current everyday Tobacco user Tobacco use type: Cigarette and Cigar Cigarettes Per Day: 2 Years Smoked: 3 e-Cigarette/Vaping Use: Never Used Advance Directives: No Advance Directives Information Provided: No service: No Current occupational status: employed Cognitive needs: No Hearing needs: No Vision needs: No <MARISOL Anthony - Last Filed: 09/25/22 18:27> Physical Exam ED Vital Signs: Vital Signs - 24 hr 09/25/22 15:20 09/25/22 18:27 Temperature 97.9 F 98.3 F Pulse Rate 82 67 Respiratory Rate 17 18 Blood Pressure 103/74 128/77 Pulse Oximetry 99 98 Oxygen Delivery Method Room Air Room Air BMI result Body Mass Index 20.0 <MARISOL Anthony - Last Filed: 09/25/22 18:27> Vital Signs - 24 hr 09/25/22 15:20 09/25/22 18:27 Temperature 97.9 F 98.3 F Pulse Rate 82 67 Respiratory Rate 17 18 Blood Pressure 103/74 128/77 Pulse Oximetry 99 98 Oxygen Delivery Method Room Air Room Air BMI result Body Mass Index 20.0 Vital signs stable <MARISOL Stratton Last Filed: 09/25/22 22:08> Appearance: Alert.? Oriented X3.? No acute distress.? Head: Normocephalic, atraumatic, no step-offs or deformities Eyes: Pupils equal, round and reactive to light.? ENT: Pharynx normal.? Neck: Normal inspection.? Neck supple.? CVS: Normal heart rate and rhythm.? Pulses normal.? Respiratory: No respiratory distress.? Breath sounds normal.? Abdomen: Soft and pain with palpation to epigastric region. Normoactive bowel sounds.? Skin: Skin warm and dry.? Normal skin color.? Normal skin turgor.? Extremities: No lower extremity edema.? No calf ttp. 5/5 strength to bilateral upper and lower extremities Neuro: Oriented X 3.? No motor deficit.? No sensory deficit. CN 2-12 intact <MARISOL Stratton Last Filed: 09/25/22 22:08> Course Course Course Narrative: RME - 47 y/o male with history of GERD, PUD with esophagitis, gastritis and duodenitis on EGD, mesenteric artery atherosclerosis (seen by Diana and going to specialist [facility] 10/07), inflammatory bowel disease on mesalamine who follows with Dr. Garduno presents to the ER for evaluation of acute on chronic epigastric pain, nausea, vomiting for the last 3 days. Pain radiates up into the chest, is burning and worse when laying flat. Will start with labs including lactic acid given history of possible ischemic colitis. Hx more consistent with PUD/GERD. Stable to go to waiting room until treatment room available. <MARISOL Anthony - Last Filed: 09/25/22 18:27> Reevaluation(s) Reevaluation #1: CBC within normal limits. Chemistry with no acute findings requiring intervention. Normal lactic acid. Unlikely ischemic colitis or mesenteric ischemia normal lipase. CT scan, influenza and COVID pending. <MARISOL Stratton Last Filed: 09/25/22 22:08> Time: 19:22 <MARISOL Stratton - Last Filed: 09/25/22 22:08> Reevaluation #2: CT of the abdomen and pelvis with no acute intra-abdominal process identified. Mild prostatomegaly and mild diffuse bladder wall thickening. Patient without urinary symptoms. At this time patient tells me he is feeling much better after GI cocktail. He is able to eat and drink without difficulties has not had any episodes of nausea or vomiting while in the department. Tells me he is feeling better. At this time patient will be discharged home. Advised to follow-up with GI and his specialist. Educated patient on diagnosis and treatment plan, answered all question, patient verbalizes understanding. At this time patient will be discharged home, advised to return with new or worsening symptoms. Educated on worrisome signs and symptoms and when to return. At this time I feel comfortable discharge home. I did discuss with my attending discharging patient home on Maalox even though he is on mesalamine, he states that is okay as long as there few hours apart. <MARISOL Stratton Last Filed: 09/25/22 22:08> Time: 22:02 <MARISOL Stratton - Last Filed: 09/25/22 22:08> Medical Decision Making Medical Decision Making [facility] Narrative: 1919 47-year-old male presenting with severe epigastric pain x2 days associated with nausea and vomiting. He tells me he may also have chest pain however he is unsure. Poor historian. Physical examination with pain with palpation to epigastric region. Patient well-appearing. Concerns for possible peptic ulcer disease, gastritis. Unlikely acute abdomen, ACS, PE, small bowel obstruction, large-bowel obstruction, diverticulitis, pancreatitis, appendicitis, ischemic colitis or mesenteric ischemia or cholecystitis. Plan at this time labs, imaging. Will give GI cocktail. <MARISOL Stratton Last Filed: 09/25/22 22:08> Differential Diagnosis Differential Diagnoses: The differential diagnosis associated with the presentation includes <MARISOL Stratton Last Filed: 09/25/22 22:08> Concerns for possible peptic ulcer disease, gastritis. Unlikely acute abdomen, ACS, PE, small bowel obstruction, large-bowel obstruction, diverticulitis, pancreatitis, appendicitis, mesenteric ischemia or ischemic colitis or cholecystitis. <MARISOL Stratton - Last Filed: 09/25/22 22:08> Admission/Observation Consideration of admission/observation: Escalation of care including admission/observation considered <MARISOL Stratton - Last Filed: 09/25/22 22:08> Unlikely <MARISOL Stratton - Last Filed: 09/25/22 22:08> Lab Data MDM Lab Attestation statement: I reviewed the patient's lab results. <MARISOL Stratton - Last Filed: 09/25/22 22:08> Result Diagrams: 09/25/22 17:38 09/25/22 17:38 <MARISOL Anthony - Last Filed: 09/25/22 18:27> Labs: Lab Results 09/25/22 09/25/22 09/25/22 Range/Units 17:38 17:38 17:38 WBC 6.8 (4.8-10.8) X10*3/uL RBC 4.42 L (4.60-5.80) X10*6/uL Hgb 14.0 (14.0-18.0) g/dl Hct 42.1 (42.0-52.0) % MCV 95.2 (80.0-98.0) fL MCH 31.7 (27.0-33.0) pg MCHC 33.3 (31.0-36.0) g/dl RDW 13.7 (11.0-16.0) % Plt Count 272 D (160-400) X10*3/uL MPV 9.6 (9.4-12.4) fL Immature Gran % (Auto) 0.1 (0.0-0.4) % Neut % (Auto) 34.4 L (45-73) % Lymph % (Auto) 51.6 H (20-40) % Sol[place] % (Auto) 11.0 (2-11) % Eos % (Auto) 2.2 (0-4) % Baso % (Auto) 0.7 (0-2) % Lymph # (Auto) 3.5 (1.2-4.9) X10*3/uL [place] # (Auto) 0.8 (0.1-1.2) X10*3/uL Eos # (Auto) 0.2 (0.0-0.4) X10*3/uL Baso # (Auto) 0.1 (0.0-0.2) X10*3/uL Abs Immat Gran (auto) 0.01 (0.00-0.03) X10*3/uL Absolute Neuts (auto) 2.4 (2.0-8.3) x10*3/uL Absolute Nucleated RBC 0.000 (0.0-0.012) X10*3/uL Nucleated RBC % (auto) 0.0 (0.0-0.2) /100WBC Sodium 139 (135-145) mmol/L Potassium 4.1 (3.3-5.1) mmol/L Chloride 104 (96-108) mmol/L Carbon Dioxide 28 (22-29) mmol/L Anion Gap 11 L (12-20) BUN 9 (9-16) mg/dL Creatinine 0.72 (0.5-1.4) mg/dL Estim Creat Clear Calc 119.8 Estimated GFR > 60 Random Glucose 113 (60-115) mg/dL Lactic Acid 0.7 (0.5-2.0) mmol/L Calcium 9.2 (8.4-10.2) mg/dL Magnesium 1.8 (1.6-2.6) mg/dL Total Bilirubin 1.0 (0.0-1.0) mg/dL Direct Bilirubin 0.3 (0.0-0.5) mg/dL AST 14 (5-37) U/L ALT 14 (0-40) U/L Alkaline Phosphatase 82 (39-117) U/L Troponin I High Sens (<3.5-35.0) ng/L Total Protein 6.8 (6.5-8.0) g/dL Albumin 4.1 (3.5-5.0) g/dL Lipase 25 (8-78) U/L COVID-19 (JOHN) (Negative) COVID-19 Clin Com Influenza Type A (PATTI) (Negative) Influenza Type B (PATTI) (Negative) Influenza A & B Note 09/25/22 09/25/22 09/25/22 Range/Units 17:45 20:00 20:00 WBC (4.8-10.8) X10*3/uL RBC (4.60-5.80) X10*6/uL Hgb (14.0-18.0) g/dl Hct (42.0-52.0) % MCV (80.0-98.0) fL MCH (27.0-33.0) pg MCHC (31.0-36.0) g/dl RDW (11.0-16.0) % Plt Count (160-400) X10*3/uL MPV (9.4-12.4) fL Immature Gran % (Auto) (0.0-0.4) % Neut % (Auto) (45-73) % Lymph % (Auto) (20-40) % Sol[place] % (Auto) (2-11) % Eos % (Auto) (0-4) % Baso % (Auto) (0-2) % Lymph # (Auto) (1.2-4.9) X10*3/uL [place] # (Auto) (0.1-1.2) X10*3/uL Eos # (Auto) (0.0-0.4) X10*3/uL Baso # (Auto) (0.0-0.2) X10*3/uL Abs Immat Gran (auto) (0.00-0.03) X10*3/uL Absolute Neuts (auto) (2.0-8.3) x10*3/uL Absolute Nucleated RBC (0.0-0.012) X10*3/uL Nucleated RBC % (auto) (0.0-0.2) /100WBC Sodium (135-145) mmol/L Potassium (3.3-5.1) mmol/L Chloride (96-108) mmol/L Carbon Dioxide (22-29) mmol/L Anion Gap (12-20) BUN (9-16) mg/dL Creatinine (0.5-1.4) mg/dL Estim Creat Clear Calc Estimated GFR Random Glucose (60-115) mg/dL Lactic Acid (0.5-2.0) mmol/L Calcium (8.4-10.2) mg/dL Magnesium (1.6-2.6) mg/dL Total Bilirubin (0.0-1.0) mg/dL Direct Bilirubin (0.0-0.5) mg/dL AST (5-37) U/L ALT (0-40) U/L Alkaline Phosphatase (39-117) U/L Troponin I High Sens < 3.5 (<3.5-35.0) ng/L Total Protein (6.5-8.0) g/dL Albumin (3.5-5.0) g/dL Lipase (8-78) U/L COVID-19 (JOHN) Negative (Negative) COVID-19 Clin Com See Note Influenza Type A (PATTI) Negative (Negative) Influenza Type B (PATTI) Negative (Negative) Influenza A & B Note See Note <MARISOL Anthony - Last Filed: 09/25/22 18:27> Lab Results 09/25/22 09/25/22 09/25/22 Range/Units 17:38 17:38 17:38 WBC 6.8 (4.8-10.8) X10*3/uL RBC 4.42 L (4.60-5.80) X10*6/uL Hgb 14.0 (14.0-18.0) g/dl Hct 42.1 (42.0-52.0) % MCV 95.2 (80.0-98.0) fL MCH 31.7 (27.0-33.0) pg MCHC 33.3 (31.0-36.0) g/dl RDW 13.7 (11.0-16.0) % Plt Count 272 D (160-400) X10*3/uL MPV 9.6 (9.4-12.4) fL Immature Gran % (Auto) 0.1 (0.0-0.4) % Neut % (Auto) 34.4 L (45-73) % Lymph % (Auto) 51.6 H (20-40) % [place] % (Auto) 11.0 (2-11) % Eos % (Auto) 2.2 (0-4) % Baso % (Auto) 0.7 (0-2) % Lymph # (Auto) 3.5 (1.2-4.9) X10*3/uL [place] # (Auto) 0.8 (0.1-1.2) X10*3/uL Eos # (Auto) 0.2 (0.0-0.4) X10*3/uL Baso # (Auto) 0.1 (0.0-0.2) X10*3/uL Abs Immat Gran (auto) 0.01 (0.00-0.03) X10*3/uL Absolute Neuts (auto) 2.4 (2.0-8.3) x10*3/uL Absolute Nucleated RBC 0.000 (0.0-0.012) X10*3/uL Nucleated RBC % (auto) 0.0 (0.0-0.2) /100WBC Sodium 139 (135-145) mmol/L Potassium 4.1 (3.3-5.1) mmol/L Chloride 104 (96-108) mmol/L Carbon Dioxide 28 (22-29) mmol/L Anion Gap 11 L (12-20) BUN 9 (9-16) mg/dL Creatinine 0.72 (0.5-1.4) mg/dL Estim Creat Clear Calc 119.8 Estimated GFR > 60 Random Glucose 113 (60-115) mg/dL Lactic Acid 0.7 (0.5-2.0) mmol/L Calcium 9.2 (8.4-10.2) mg/dL Magnesium 1.8 (1.6-2.6) mg/dL Total Bilirubin 1.0 (0.0-1.0) mg/dL Direct Bilirubin 0.3 (0.0-0.5) mg/dL AST 14 (5-37) U/L ALT 14 (0-40) U/L Alkaline Phosphatase 82 (39-117) U/L Troponin I High Sens (<3.5-35.0) ng/L Total Protein 6.8 (6.5-8.0) g/dL Albumin 4.1 (3.5-5.0) g/dL Lipase 25 (8-78) U/L COVID-19 (JOHN) (Negative) COVID-19 Clin Com Influenza Type A (PATTI) (Negative) Influenza Type B (PATTI) (Negative) Influenza A & B Note 09/25/22 09/25/22 09/25/22 Range/Units 17:45 20:00 20:00 WBC (4.8-10.8) X10*3/uL RBC (4.60-5.80) X10*6/uL Hgb (14.0-18.0) g/dl Hct (42.0-52.0) % MCV (80.0-98.0) fL MCH (27.0-33.0) pg MCHC (31.0-36.0) g/dl RDW (11.0-16.0) % Plt Count (160-400) X10*3/uL MPV (9.4-12.4) fL Immature Gran % (Auto) (0.0-0.4) % Neut % (Auto) (45-73) % Lymph % (Auto) (20-40) % [place] % (Auto) (2-11) % Eos % (Auto) (0-4) % Baso % (Auto) (0-2) % Lymph # (Auto) (1.2-4.9) X10*3/uL [place] # (Auto) (0.1-1.2) X10*3/uL Eos # (Auto) (0.0-0.4) X10*3/uL Baso # (Auto) (0.0-0.2) X10*3/uL Abs Immat Gran (auto) (0.00-0.03) X10*3/uL Absolute Neuts (auto) (2.0-8.3) x10*3/uL Absolute Nucleated RBC (0.0-0.012) X10*3/uL Nucleated RBC % (auto) (0.0-0.2) /100WBC Sodium (135-145) mmol/L Potassium (3.3-5.1) mmol/L Chloride (96-108) mmol/L Carbon Dioxide (22-29) mmol/L Anion Gap (12-20) BUN (9-16) mg/dL Creatinine (0.5-1.4) mg/dL Estim Creat Clear Calc Estimated GFR Random Glucose (60-115) mg/dL Lactic Acid (0.5-2.0) mmol/L Calcium (8.4-10.2) mg/dL Magnesium (1.6-2.6) mg/dL Total Bilirubin (0.0-1.0) mg/dL Direct Bilirubin (0.0-0.5) mg/dL AST (5-37) U/L ALT (0-40) U/L Alkaline Phosphatase (39-117) U/L Troponin I High Sens < 3.5 (<3.5-35.0) ng/L Total Protein (6.5-8.0) g/dL Albumin (3.5-5.0) g/dL Lipase (8-78) U/L COVID-19 (JOHN) Negative (Negative) COVID-19 Clin Com See Note Influenza Type A (PATTI) Negative (Negative) Influenza Type B (PATTI) Negative (Negative) Influenza A & B Note See Note <MARISOL Stratton - Last Filed: 09/25/22 22:08> Independent Interpretation I performed an independent interpretation of an: CT Scan <MARISOL Stratton - Last Filed: 09/25/22 22:08> Radiology Impression Discussion of test interpretation with radiology: I have reviewed the radiologist's reading. <MARISOL Stratton - Last Filed: 09/25/22 22:08> Core Measures AMI core measures followed: Yes <MARISOL Stratton - Last Filed: 09/25/22 22:08> Measure exclusions: not indicated <MARISOL Stratton - Last Filed: 09/25/22 22:08> Medications Administered Discontinued Medications Generic Name Dose Route Start Last Admin Trade Name Freq PRN Reason Stop Dose Admin Al Hydroxide/Mg Hydroxide 30 ml 09/25/22 19:01 09/25/22 19:22 Magnesium Hydrox/Alum Hydrox 30 Ml Oral.Susp PO 09/25/22 19:02 30 ml ONCE ONE Administration Belladonna Alkaloids/Phenobarbital 10 ml 09/25/22 19:01 09/25/22 19:23 Phenobarb/Hyoscy/Atropine/Scop 10 Ml Elixir PO 09/25/22 19:02 10 ml ONCE ONE Administration Sodium Chloride 1,000 mls @ 999 mls/hr 09/25/22 19:30 09/25/22 21:08 Ns IV 09/25/22 20:30 Infused .Q1H1M LATOSHA Infusion Iohexol 100 ml 09/25/22 19:56 09/25/22 19:56 Iohexol 350 Mg/Ml 100 Ml Infus..Btl IV 09/25/22 19:57 85 ml ONCE ONE Administration Morphine Sulfate 4 mg 09/25/22 19:22 09/25/22 19:34 Morphine Sulfate 4 Mg/Ml Cartridge IVPUSH 09/25/22 19:23 4 mg ONCE ONE Administration Protocol <MARISOL Anthony - Last Filed: 09/25/22 18:27> Medications Administered Discontinued Medications Generic Name Dose Route Start Last Admin Trade Name Calvin PRN Reason Stop Dose Admin Al Hydroxide/Mg Hydroxide 30 ml 09/25/22 19:01 09/25/22 19:22 Magnesium Hydrox/Alum Hydrox 30 Ml Oral.Susp PO 09/25/22 19:02 30 ml ONCE ONE Administration Belladonna Alkaloids/Phenobarbital 10 ml 09/25/22 19:01 09/25/22 19:23 Phenobarb/Hyoscy/Atropine/Scop 10 Ml Elixir PO 09/25/22 19:02 10 ml ONCE ONE Administration Sodium Chloride 1,000 mls @ 999 mls/hr 09/25/22 19:30 09/25/22 21:08 Ns IV 09/25/22 20:30 Infused .Q1H1M LATOSHA Infusion Iohexol 100 ml 09/25/22 19:56 09/25/22 19:56 Iohexol 350 Mg/Ml 100 Ml Infus..Btl IV 09/25/22 19:57 85 ml ONCE ONE Administration Morphine Sulfate 4 mg 09/25/22 19:22 09/25/22 19:34 Morphine Sulfate 4 Mg/Ml Cartridge IVPUSH 09/25/22 19:23 4 mg ONCE ONE Administration Protocol <MARISOL Stratton - Last Filed: 09/25/22 22:08> Critical Care Time Critical Care Time Critical Care Time: No <MARISOL Stratton - Last Filed: 09/25/22 22:08> Discharge Plan Discharge Clinical Impression: Abdominal pain, epigastric, Gastroesophageal reflux disease <MARISOL Anthony - Last Filed: 09/25/22 18:27> Patient Disposition: Home, Self-Care <MARISOL Anthony - Last Filed: 09/25/22 18:27> Instructions: Diet for Stomach Ulcers and Gastritis (ED), Gastroesophageal Reflux Disease (ED), Epigastric Pain (ED) <MARISOL Anthony - Last Filed: 09/25/22 18:27> Additional Instructions: Take your medications as prescribed. If you were prescribed antibiotics today, it is important that you take your medication to their entirety, do not skip any doses, do not finish them early. Follow-up with your primary care provider this week. Return to the emergency department with new or worsening symptoms. Such as fevers, chills, chest pain, shortness of breath, nausea, vomiting, dizziness, headache, vision changes, lethargy In case of emergency call 911 Please do not take your Mesalamine and Maalox at the same time take it with a few hours difference <MARISOL Anthony - Last Filed: 09/25/22 18:27> Prescriptions: New alum-mag hydroxide-simeth [Maalox Advanced] 200-200-20 mg/5 mL suspension 5 ml PO 5XD PRN (Reason: dyspepsia) Qty: 355 0RF Rx Instructions: administer between meals and at bedtime No Action lansoprazole 30 mg capsule,delayed release(DR/EC) 30 mg PO BID Qty: 90 0RF Rx Instructions: Take at 8 am and 8 pm on empty stomach and eat 15 mins later lorazepam [Ativan] 1 mg tablet 1 mg PO BID PRN (Reason: anxiety) Qty: 20 0RF sucralfate 1 gram tablet 1 tab PO BEDTIME loperamide 2 mg Capsule 2 mg PO Q6H PRN (Reason: Diarrhea) Qty: 30 0RF diclofenac sodium 1 % gel 2 g topical QID PRN (Reason: elbow pain ) Qty: 100 0RF Rx Instructions: apply to single elbow, wrist or hand; for hand includes palm/fingers/back of hand ketotifen fumarate [Allergy Eye (ketotifen)] 0.025 % (0.035 %) drops 1 drp ophthalmic (eye) BID Qty: 5 6RF Rx Instructions: administer at least 8 hours apart megestrol 40 mg tablet 40 mg PO DAILY Qty: 30 3RF mesalamine [Apriso] 0.375 gram capsule,extended release 24hr 1.5 g PO QAM Qty: 120 2RF peg-electrolyte soln 420 gram recon soln 240 ml PO Q10M Qty: 4000 0RF Rx Instructions: until fecal effluent is clear; do not exceed a total volume of 2,000 mL ondansetron 4 mg tablet,disintegrating 4 mg PO Q8H PRN (Reason: nausea and vomiting) Qty: 30 0RF <MARISOL Anthony - Last Filed: 09/25/22 18:27> Referrals: Ngoc Fung MD [Primary Care Provider] - 2 days <MARISOL Anthony - Last Filed: 09/25/22 18:27> Stand Alone Forms: Work/School Release <MARISOL Anthony - Last Filed: 09/25/22 18:27>
[2022-09-25 17:47] LABS: MANUAL DIFF FLAG NO
[2022-09-25 18:00] LABS: Basophils Absolute Auto 0.1 X10*3/uL (0.0-0.2); Basophils Percent Auto 0.7 % (0-2); Eosinophils Absolute Auto 0.2 X10*3/uL (0.0-0.4); Eosinophils Percent Auto 2.2 % (0-4); Hematocrit 42.1 % (42.0-52.0); Imm Gran Abs Auto 0.01 X10*3/uL (0.00-0.03); Imm Gran Pct Auto 0.1 % (0.0-0.4); Lactic Acid 0.7 mmol/L (0.5-2.0); Lymphocytes Absolute Auto 3.5 X10*3/uL (1.2-4.9); Lymphocytes Percent Auto 51.6 % (20-40); Mean Corpuscular HGB Conc 33.3 g/dl (31.0-36.0); Mean Corpuscular Hemoglobin 31.7 pg (27.0-33.0); Mean Corpuscular Volume 95.2 fL (80.0-98.0); Mean Platelet Volume 9.6 fL (9.4-12.4); Monocytes Absolute Auto 0.8 X10*3/uL (0.1-1.2); Neutrophils Absolute Auto 2.4 x10*3/uL (2.0-8.3); Neutrophils Percent Auto 34.4 % (45-73); Platelet Count 272 X10*3/uL (160-400); Red Blood Count 4.42 X10*6/uL (4.60-5.80); Red Cell Distribution Width 13.7 % (11.0-16.0); White Blood Count 6.8 X10*3/uL (4.8-10.8)
[2022-09-25 18:04] LABS: Alanine Aminotransferase 14 U/L (0-40); Albumin Level 4.1 g/dL (3.5-5.0); Alkaline Phosphatase 82 U/L (39-117); Anion Gap 11 (12-20); Aspartate Amino Transferase 14 U/L (5-37); Bilirubin Direct 0.3 mg/dL (0.0-0.5); Blood Urea Nitrogen 9 mg/dL (9-16); Calcium 9.2 mg/dL (8.4-10.2); Carbon Dioxide 28 mmol/L (22-29); Chloride 104 mmol/L (96-108); Creatinine Clr Calc Pharmacy 119.8; Estimated Glomerular Filt Rate > 60; Glucose Random 113 mg/dL (60-115); Lipase 25 U/L (8-78); Magnesium 1.8 mg/dL (1.6-2.6); Potassium 4.1 mmol/L (3.3-5.1); Sodium 139 mmol/L (135-145); Total Protein 6.8 g/dL (6.5-8.0)
[2022-09-25 18:27] VITALS: BP 128/77; PULSE 67; RESP 18; TEMP 36.8; O2SAT 98
--- NOTE | 2022-09-25 18:27 | MHC.EDTECH ---
this pct just assumed care of pt ,vitals sign taken ,pt ask for a warm blanket ,call king within reach .
--- NOTE | 2022-09-25 19:16 | ECG_ITS ---
Test Reason : NAUSEA Blood Pressure : / mmHG Vent. Rate : 076 BPM Atrial Rate : 076 BPM P-R Int : 126 ms QRS Dur : 086 ms QT Int : 348 ms P-R-T Axes : 071 039 018 degrees QTc Int : 391 ms Normal sinus rhythm with sinus arrhythmia Normal ECG When compared with ECG of 15-FEB-2021 20:55, No significant change was found Referred By: Davina Gray Electronically Signed By:Jordan Ramírez
[2022-09-25] MEDS: Magnesium Hydrox/Alum Hydrox 30 ML ORAL.SUSP PO (19:22)
[2022-09-25] MEDS: PHENobarb/Hyoscy/Atropine/Scop 10 ML ELIXIR PO (19:23)
[2022-09-25] MEDS: Morphine Sulfate 4 MG/ML CARTRIDGE IVPUSH (19:34)
[2022-09-25] MEDS: iohexoL 350 MG/ML 100 ML INFUS..BTL IV (19:56)
[2022-09-25] MEDS: 0.9 % Sodium Chloride 1,000 ML 999 ML IV (20:00)
[2022-09-25 20:26] LABS: COVID-19 Test Negative (Negative); IDNOW Serial# 16C4AD1C; IDNOW Serial# BCCEAD1C; Influenza A Negative (Negative); Influenza B2 Negative (Negative)
[2022-09-25 20:55] LABS: Troponin-I High Sensitivity < 3.5 ng/L (<3.5-35.0)
== END 2022-09-25 22:17 | disposition home or self-care (01) ==
PROVIDERS: Physician Assistant; Emergency Provider Internal Medicine; PCP Internal Medicine
DX: K21.9 Gastro-esophageal reflux disease without esophagitis (principal); R10.13 Epigastric pain; R11.2 Nausea with vomiting, unspecified; K58.9 Irritable bowel syndrome, unspecified; F17.210 Nicotine dependence, cigarettes, uncomplicated; Z71.6 Tobacco abuse counseling; Z20.822 Contact with and (suspected) exposure to COVID-19; Z20.828 Contact with and (suspected) exposure to other viral communicable diseases
CPT/HCPCS: 36415; 74177; 80048; 80076; 83605; 83690; 83735; 84484; 85025; 87502; 87635; 93005; 96361; 96374; 99284; J2270; Q9967

== ENCOUNTER 2022-10-28 21:11 | Emergency (ER) | payer OTHER, SELFPAY ==
--- NOTE | 2022-10-28 | ECG_ITS ---
Test Reason : chest pain Blood Pressure : / mmHG Vent. Rate : 082 BPM Atrial Rate : 082 BPM P-R Int : 120 ms QRS Dur : 088 ms QT Int : 332 ms P-R-T Axes : 073 024 027 degrees QTc Int : 387 ms Normal sinus rhythm Possible Left atrial enlargement Borderline ECG When compared with ECG of 25-SEP-2022 19:43, No significant change was found Referred By: Generic ED Physician Electronically Signed By:Jordan Ramírez
[2022-10-28 21:23] VITALS: BP 131/71; PULSE 85; RESP 20; TEMP 37; O2SAT 98; BMI 19.6
--- NOTE | 2022-10-28 21:38 | MHC.EDTECH ---
PT BLOOD DRAWN AND SENT TO LAB ,EKD DONE AND WAS READ BY PROVIDER .
[2022-10-28 21:44] LABS: Basophils Absolute Auto 0.1 X10*3/uL (0.0-0.2); Basophils Percent Auto 0.7 % (0-2); Eosinophils Absolute Auto 0.2 X10*3/uL (0.0-0.4); Eosinophils Percent Auto 2.2 % (0-4); Hematocrit 41.6 % (42.0-52.0); Imm Gran Abs Auto 0.02 X10*3/uL (0.00-0.03); Imm Gran Pct Auto 0.3 % (0.0-0.4); Lymphocytes Absolute Auto 3.3 X10*3/uL (1.2-4.9); Lymphocytes Percent Auto 46.5 % (20-40); MANUAL DIFF FLAG NO; Mean Corpuscular HGB Conc 33.7 g/dl (31.0-36.0); Mean Corpuscular Hemoglobin 31.8 pg (27.0-33.0); Mean Corpuscular Volume 94.5 fL (80.0-98.0); Mean Platelet Volume 9.5 fL (9.4-12.4); Monocytes Absolute Auto 0.7 X10*3/uL (0.1-1.2); Monocytes Percent Auto 9.9 % (2-11); Neutrophils Absolute Auto 2.9 x10*3/uL (2.0-8.3); Neutrophils Percent Auto 40.4 % (45-73); Platelet Count 266 X10*3/uL (160-400); Red Cell Distribution Width 13.3 % (11.0-16.0); White Blood Count 7.1 X10*3/uL (4.8-10.8)
[2022-10-28 21:58] LABS: Anion Gap 11 (12-20); Blood Urea Nitrogen 10 mg/dL (9-16); Calcium 9.1 mg/dL (8.4-10.2); Carbon Dioxide 26 mmol/L (22-29); Chloride 106 mmol/L (96-108); Creatinine Clr Calc Pharmacy 106.1; Estimated Glomerular Filt Rate > 60; Glucose Random 128 mg/dL (60-115); Potassium 4.4 mmol/L (3.3-5.1); Sodium 139 mmol/L (135-145)
[2022-10-28 22:09] LABS: Troponin-I High Sensitivity < 3.5 ng/L (<3.5-35.0)
--- NOTE | 2022-10-28 23:12 | ED.CHESTPAIN ---
HPI - Chest Pain General Chief Complaint: Chest Pain Stated Complaint: Chest pain Time Seen by Provider: 10/28/22 23:12 Source: patient Mode of arrival: ambulatory Limitations: no limitations History of Present Illness HPI narrative: This is a 47-year-old male history of IBD, superior mesenteric artery sclerosis, depression, constipation, GERD, peptic ulcer disease? with esophagitis, gastritis and duodenitis on EGD, mesenteric artery atherosclerosis (seen by Diana and going to specialist [facility] 10/07), inflammatory bowel disease on mesalamine who follows with Dr. Garduno? presenting to the emergency department with chest pain substernal in nature &epigastric burning, nonradiating, intermittent x1 week. Patient describes the pain as sharp/burning, unable to tell me what makes it better or worse. No associated shortness of breath. Denies recent illness, fevers, chills, nausea, vomiting, abdominal pain, back pain, shoulder pain, headache, vision changes, dizziness and weakness. Related Data Home Medications Medication Instructions Recorded Confirmed sucralfate 1 gram tablet 1 tab PO BEDTIME 06/02/22 07/23/22 Previous Rx's Medication Instructions Recorded diclofenac sodium 1 % topical gel 2 g topical QID PRN elbow pain 11/29/21 #100 grams ketotifen fumarate 0.025 % (0.035 1 drp ophthalmic (eye) BID #5 mL 03/01/22 %) eye drops (Allergy Eye (ketotifen)) lansoprazole 30 mg capsule,delayed 30 mg PO BID #90 caps 04/17/22 release megestrol 40 mg tablet 40 mg PO DAILY #30 tabs 05/23/22 loperamide 2 mg capsule 2 mg PO Q6H PRN Diarrhea #30 caps 06/05/22 lorazepam 1 mg tablet (Ativan) 1 mg PO BID PRN anxiety #20 tabs 06/16/22 mesalamine 0.375 gram 1.5 g PO QAM #120 caps 08/23/22 capsule,extended release 24 hr (Apriso) ondansetron 4 mg disintegrating 4 mg PO Q8H PRN nausea and 08/23/22 tablet vomiting #30 tabs peg-electrolyte solution 420 gram 240 ml PO Q10M #4,000 mL 08/23/22 oral solution aluminum-mag hydroxide-simethicone 5 ml PO 5XD PRN dyspepsia #355 mL 09/25/22 200 mg-200 mg-20 mg/5 mL oral susp (Maalox Advanced) aluminum-mag hydroxide-simethicone 5 ml PO 5XD PRN dyspepsia #355 mL 10/29/22 200 mg-200 mg-20 mg/5 mL oral susp (Maalox Advanced) aspirin 81 mg capsule 81 mg PO DAILY #30 caps 10/29/22 Allergies Allergy/AdvReac Type Severity Reaction Status Date / Time No Known Allergies Allergy Verified 09/25/22 15:23 Review of Systems Review of Systems: Constitutional : No Weight loss, No Fever, No Chills, No Fatigue, No Malaise ENT/Mouth : No sore throat, No Rhinorrhea Eyes: No Eye Pain, No Swelling, No Redness Cardiovascular : + Chest Pain, No SOB, No Dyspnea on Exertion, No Orthopnea, No Edema, No Palpitations Respiratory : No Cough, No Sputum, No Wheezing Gastrointestinal : No Nausea, No Vomiting, No Diarrhea, No Constipation, No abdominal Pain, No Hematochezia, No Melena Genitourinary : No Dysuria, No Urinary Frequency, No Hematuria, Musculoskeletal : No joint pain, No Myalgias, No Joint Swelling Skin : No Skin Lesions, No rash Neuro : No Weakness, No Numbness, No Dizziness, No Headache Psych : No Anxiety/Panic, No Depression All other systems reviewed and are negative Yes all other systems are reviewed and are negative [facility] Past Medical History Attestation statement: The following information was validated with the patient. Source: old records reviewed and nursing notes reviewed Medical History Chronic GERD Diarrhea Granular cell tumor Impaired fasting glucose Normocytic normochromic anemia Not ready to quit smoking Surgical History Hx of colonoscopy No pertinent past surgical history Family History Family History Maternal Aunt No problems noted. Maternal Aunt No problems noted. Social History Social History Household Members: Spouse Housing: Apartment Do you presently have visiting nurse or other home services: No Patient Tobacco Use Status: Current everyday Tobacco user Tobacco use type: Cigarette and Cigar Cigarettes Per Day: 2 Years Smoked: 3 e-Cigarette/Vaping Use: Never Used Advance Directives: No Advance Directives Information Provided: Yes service: No Current occupational status: employed Cognitive needs: No Hearing needs: No Vision needs: No Physical Exam Vital Signs: Vital Signs: Last Vital Signs Temp 98.0 F 10/28/22 23:59 Pulse 67 10/28/22 23:59 Resp 16 10/28/22 23:59 BP 119/73 10/28/22 23:59 Pulse Ox 98 10/28/22 23:59 O2 Del Method 10/28/22 23:59 BMI result Body Mass Index 19.6 vss Appearance: Alert.? Oriented X3.? No acute distress.? Head: Normocephalic, atraumatic, no step-offs or deformities Eyes: Pupils equal, round and reactive to light.? ENT: Pharynx normal.? Neck: Normal inspection.? Neck supple.? CVS: Normal heart rate and rhythm.? Pulses normal.? Respiratory: No respiratory distress.? Breath sounds normal.? Abdomen: Soft and nontender.? Skin: Skin warm and dry.? Normal skin color.? Normal skin turgor.? Extremities: No lower extremity edema.? No calf ttp. 5/5 strength to bilateral upper and lower extremities Neuro: Oriented X 3.? No motor deficit.? No sensory deficit. CN 2-12 intact Course Reevaluation(s) Reevaluation #1: Patient's CBC appears to be within normal limits. Chemistry with no acute electrolyte abnormalities requiring intervention. Troponin negative, EKG with a ventricular rate of 82, WA normal, QRS normal, QT/QTC normal, EKG with normal sinus rhythm with possible left atrial enlargement no ST elevations or inversions concerning for ischemia. EKG at 21:17, for some reason it did not transfer over to the computer however no signs of acute ischemia. I did go re-evaluate patient, he tells me he feels much better after Maalox as pain went from a 10/10 to a 4 to 5/10 reporting improvement. 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 Tells me he would like to go home. PERC negative, heart score of 1, unlikely ACS, PE. I did discuss this case thoroughly with my attending who recommends starting patient on baby daily aspirin. Will do this. Educated patient on diagnosis and treatment plan, answered all question, patient verbalizes understanding. At this time patient will be discharged home, advised to return with new or worsening symptoms. Educated on worrisome signs and symptoms and when to return. At this time I feel comfortable discharge home. Time: 00:32 Medications Administered Discontinued Medications Generic Name Dose Route Start Last Admin Trade Name Calvin PRN Reason Stop Dose Admin Al Hydroxide/Mg Hydroxide 30 ml 10/28/22 23:41 10/29/22 00:12 Magnesium Hydrox/Alum Hydrox 30 Ml Oral.Susp PO 10/28/22 23:42 30 ml ONCE ONE Administration Medical Decision Making Medical Decision Making [facility] Narrative: 2312 47-year-old male presents with substernal nonradiating chest pain, epigastric pain and nausea x1 week intermittent in nature. Physical examination benign. Heart score 1. Perc negative ? Concerns for possible peptic ulcer disease, gastritis.? Unlikely acute abdomen, ACS, PE, small bowel obstruction, large-bowel obstruction, diverticulitis, pancreatitis, appendicitis, mesenteric ischemia or ischemic colitis or cholecystitis Plan at this time labs, imaging. Differential Diagnosis Differential Diagnoses: The differential diagnosis associated with the presentation includes ? Concerns for possible peptic ulcer disease, gastritis.? Unlikely acute abdomen, ACS, PE, small bowel obstruction, large-bowel obstruction, diverticulitis, pancreatitis, appendicitis, mesenteric ischemia or ischemic colitis or cholecystitis Lab Data 10/28/22 21:38 10/28/22 21:38 Labs: Lab Results 10/28/22 10/28/22 10/28/22 Range/Units 21:38 21:38 21:38 WBC 7.1 (4.8-10.8) X10*3/uL RBC 4.40 L (4.60-5.80) X10*6/uL Hgb 14.0 (14.0-18.0) g/dl Hct 41.6 L (42.0-52.0) % MCV 94.5 (80.0-98.0) fL MCH 31.8 (27.0-33.0) pg MCHC 33.7 (31.0-36.0) g/dl RDW 13.3 (11.0-16.0) % Plt Count 266 (160-400) X10*3/uL MPV 9.5 (9.4-12.4) fL Immature Gran % (Auto) 0.3 (0.0-0.4) % Neut % (Auto) 40.4 L (45-73) % Lymph % (Auto) 46.5 H (20-40) % [place] % (Auto) 9.9 (2-11) % Eos % (Auto) 2.2 (0-4) % Baso % (Auto) 0.7 (0-2) % Lymph # (Auto) 3.3 (1.2-4.9) X10*3/uL [place] # (Auto) 0.7 (0.1-1.2) X10*3/uL Eos # (Auto) 0.2 (0.0-0.4) X10*3/uL Baso # (Auto) 0.1 (0.0-0.2) X10*3/uL Abs Immat Gran (auto) 0.02 (0.00-0.03) X10*3/uL Absolute Neuts (auto) 2.9 (2.0-8.3) x10*3/uL Absolute Nucleated RBC 0.000 (0.0-0.012) X10*3/uL Nucleated RBC % (auto) 0.0 (0.0-0.2) /100WBC Sodium 139 (135-145) mmol/L Potassium 4.4 (3.3-5.1) mmol/L Chloride 106 (96-108) mmol/L Carbon Dioxide 26 (22-29) mmol/L Anion Gap 11 L (12-20) BUN 10 (9-16) mg/dL Creatinine 0.80 (0.5-1.4) mg/dL Estim Creat Clear Calc 106.1 Estimated GFR > 60 Random Glucose 128 H (60-115) mg/dL Calcium 9.1 (8.4-10.2) mg/dL Troponin I High Sens < 3.5 (<3.5-35.0) ng/L Critical Care Time Critical Care Time Critical Care Time: No Discharge Plan Discharge Clinical Impression: Chest pain, Chronic GERD Patient Disposition: Home, Self-Care Instructions: Chest Pain (DC) Additional Instructions: Take your medications as prescribed. If you were prescribed antibiotics today, it is important that you take your medication to their entirety, do not skip any doses, do not finish them early. Follow-up with your primary care provider this week. Please follow-up with cardiology, you may require a Holter monitor for further evaluation. Information below. Return to the emergency department with new or worsening symptoms. Such as fevers, chills, chest pain, shortness of breath, nausea, vomiting, dizziness, headache, vision changes, lethargy In case of emergency call 911 Prescriptions: New alum-mag hydroxide-simeth [Maalox Advanced] 200-200-20 mg/5 mL suspension 5 ml PO 5XD PRN (Reason: dyspepsia) Qty: 355 0RF Rx Instructions: administer between meals and at bedtime aspirin 81 mg capsule 81 mg PO DAILY Qty: 30 0RF No Action lansoprazole 30 mg capsule,delayed release(DR/EC) 30 mg PO BID Qty: 90 0RF Rx Instructions: Take at 8 am and 8 pm on empty stomach and eat 15 mins later lorazepam [Ativan] 1 mg tablet 1 mg PO BID PRN (Reason: anxiety) Qty: 20 0RF alum-mag hydroxide-simeth [Maalox Advanced] 200-200-20 mg/5 mL suspension 5 ml PO 5XD PRN (Reason: dyspepsia) Qty: 355 0RF Rx Instructions: administer between meals and at bedtime sucralfate 1 gram tablet 1 tab PO BEDTIME loperamide 2 mg Capsule 2 mg PO Q6H PRN (Reason: Diarrhea) Qty: 30 0RF diclofenac sodium 1 % gel 2 g topical QID PRN (Reason: elbow pain ) Qty: 100 0RF Rx Instructions: apply to single elbow, wrist or hand; for hand includes palm/fingers/back of hand ketotifen fumarate [Allergy Eye (ketotifen)] 0.025 % (0.035 %) drops 1 drp ophthalmic (eye) BID Qty: 5 6RF Rx Instructions: administer at least 8 hours apart megestrol 40 mg tablet 40 mg PO DAILY Qty: 30 3RF mesalamine [Apriso] 0.375 gram capsule,extended release 24hr 1.5 g PO QAM Qty: 120 2RF peg-electrolyte soln 420 gram recon soln 240 ml PO Q10M Qty: 4000 0RF Rx Instructions: until fecal effluent is clear; do not exceed a total volume of 2,000 mL ondansetron 4 mg tablet,disintegrating 4 mg PO Q8H PRN (Reason: nausea and vomiting) Qty: 30 0RF Referrals: Physician,Unknown J [Primary Care Provider] - 2 days [facility]Provider Group] - 1 day [facility] [Provider Group] - 1 day Stand Alone Forms: Work/School Release
[2022-10-28 23:59] VITALS: BP 119/73; PULSE 67; RESP 16; TEMP 36.7; O2SAT 98
[2022-10-29] MEDS: Magnesium Hydrox/Alum Hydrox 30 ML ORAL.SUSP PO (00:12)
== END 2022-10-29 00:47 | disposition home or self-care (01) ==
PROVIDERS: Emergency Provider Internal Medicine
DX: R07.9 Chest pain, unspecified (principal); K21.9 Gastro-esophageal reflux disease without esophagitis
CPT/HCPCS: 36415; 80048; 84484; 85025; 93005; 99283; 99284

== ENCOUNTER → 2022-12-16 14:42 | Outpatient (BNVA) | payer OTHER, SELFPAY | PROVIDERS: PCP Internal Medicine; Visit Provider Internal Medicine Gastroenterology | DX: K55.1 Chronic vascular disorders of intestine (principal); I70.90 Unspecified atherosclerosis | CPT/HCPCS: 99212 ==

== ENCOUNTER 2022-12-21 14:16 | Emergency (ER) | payer OTHER, SELFPAY ==
--- NOTE | ~2022-12-21 | CT_ITS ---
EXAMINATION: CT ANGIOGRAM OF THE CHEST, ABDOMEN AND PELVIS WITHOUT AND WITH CONTRAST CLINICAL INFORMATION: Abdominal pain, stent placement in the SMA COMPARISON: CT abdomen pelvis on 09/25/2022 TECHNIQUE: Multidetector volumetric CT imaging of the chest, abdomen, and pelvis was performed before and after the administration of 80 mL of Omnipaque 350 intravenous contrast without immediate adverse reactions. 3D POSTPROCESSING: Multiple 3-D angiographic images were processed from the initial data set by the 3d technologist at the modality workstation under concurrent physician supervision. DOSE LOWERING TECHNIQUES: This CT examination was performed using dose optimization techniques as appropriate, variously including the following: - Automated exposure control - Adjustment of mA and/or kV according to patient size (this includes techniques or standardized protocols for targeted exams where dose is matched to indication/reason for exam; i.e. extremities or head) - Use of iterative reconstruction technique DLP: 478 mGy-cm. FINDINGS: VASCULAR: ASCENDING AORTA: Normal in caliber. No significant atherosclerotic disease, aneurysm, or dissection. AORTIC ARCH: Normal in caliber. No significant atherosclerotic disease, aneurysm, or dissection. DESCENDING AORTA: Normal in caliber. No significant atherosclerotic disease, aneurysm, or dissection. ABDOMINAL AORTA: Normal in caliber. Moderate noncalcific atherosclerotic disease. CELIOMESENTERIC ARTERIES: Chronic occlusion of the celiac artery. The celiac artery fills predominantly via retrograde flow from a large GDA. Interval placement of a superior mesenteric artery stent which is patent. Distal branches of the SMA are patent. The origin of the SOLOMON is occluded, however there is distal filling. RENAL ARTERIES: Single bilateral renal arteries are patent. RIGHT ILIOFEMORAL ARTERIES: Patent LEFT ILIOFEMORAL ARTERIES: Patent NONVASCULAR: LUNGS: Moderate apical predominant emphysematous changes. MEDIASTINUM: The mediastinum is normal. PLEURA: There is no pleural effusion. No pleural mass or thickening. LIVER, GALLBLADDER, AND BILIARY TREE: The liver is normal in size, shape, and attenuation. No focal hepatic lesion or biliary ductal dilatation is present. The gallbladder is unremarkable with no evidence of radiopaque gallstones, gallbladder wall thickening, or obvious pericholecystic inflammatory changes. PANCREAS: Unremarkable. SPLEEN: Unremarkable. ADRENAL GLANDS: Unremarkable. KIDNEYS AND URETERS: The kidneys are normal in size, shape, and attenuation. No hydronephrosis, hydroureter, or calculi seen. No perinephric stranding. BLADDER: Unremarkable. GASTROINTESTINAL TRACT: The small and large bowel are unremarkable. The appendix is unremarkable. ABDOMINAL WALL: No significant hernia is appreciated. LYMPH NODES: Normal. PELVIC VISCERA: Unremarkable. OSSEOUS STRUCTURES: Unremarkable. CT/CT angio abdomen pelvis IMPRESSION: 1. Interval placement of a superior mesenteric artery stent which is patent. Distal branches of the SMA are patent. 2. Chronic occlusion of the celiac artery. The origin of the SOLOMON is occluded, however there is distal filling.
--- NOTE | ~2022-12-21 | CT_ITS ---
EXAMINATION: CT ANGIOGRAM OF THE CHEST, ABDOMEN AND PELVIS WITHOUT AND WITH CONTRAST CLINICAL INFORMATION: Abdominal pain, stent placement in the SMA COMPARISON: CT abdomen pelvis on 09/25/2022 TECHNIQUE: Multidetector volumetric CT imaging of the chest, abdomen, and pelvis was performed before and after the administration of 80 mL of Omnipaque 350 intravenous contrast without immediate adverse reactions. 3D POSTPROCESSING: Multiple 3-D angiographic images were processed from the initial data set by the geospatial technologist at the modality workstation under concurrent physician supervision. DOSE LOWERING TECHNIQUES: This CT examination was performed using dose optimization techniques as appropriate, variously including the following: - Automated exposure control - Adjustment of mA and/or kV according to patient size (this includes techniques or standardized protocols for targeted exams where dose is matched to indication/reason for exam; i.e. extremities or head) - Use of iterative reconstruction technique DLP: 478 mGy-cm. FINDINGS: VASCULAR: ASCENDING AORTA: Normal in caliber. No significant atherosclerotic disease, aneurysm, or dissection. AORTIC ARCH: Normal in caliber. No significant atherosclerotic disease, aneurysm, or dissection. DESCENDING AORTA: Normal in caliber. No significant atherosclerotic disease, aneurysm, or dissection. ABDOMINAL AORTA: Normal in caliber. Moderate noncalcific atherosclerotic disease. CELIOMESENTERIC ARTERIES: Chronic occlusion of the celiac artery. The celiac artery fills predominantly via retrograde flow from a large GDA. Interval placement of a superior mesenteric artery stent which is patent. Distal branches of the SMA are patent. The origin of the SOLOMON is occluded, however there is distal filling. RENAL ARTERIES: Single bilateral renal arteries are patent. RIGHT ILIOFEMORAL ARTERIES: Patent LEFT ILIOFEMORAL ARTERIES: Patent NONVASCULAR: LUNGS: Moderate apical predominant emphysematous changes. MEDIASTINUM: The mediastinum is normal. PLEURA: There is no pleural effusion. No pleural mass or thickening. LIVER, GALLBLADDER, AND BILIARY TREE: The liver is normal in size, shape, and attenuation. No focal hepatic lesion or biliary ductal dilatation is present. The gallbladder is unremarkable with no evidence of radiopaque gallstones, gallbladder wall thickening, or obvious pericholecystic inflammatory changes. PANCREAS: Unremarkable. SPLEEN: Unremarkable. ADRENAL GLANDS: Unremarkable. KIDNEYS AND URETERS: The kidneys are normal in size, shape, and attenuation. No hydronephrosis, hydroureter, or calculi seen. No perinephric stranding. BLADDER: Unremarkable. GASTROINTESTINAL TRACT: The small and large bowel are unremarkable. The appendix is unremarkable. ABDOMINAL WALL: No significant hernia is appreciated. LYMPH NODES: Normal. PELVIC VISCERA: Unremarkable. OSSEOUS STRUCTURES: Unremarkable. CT/CT angio chest aorta IMPRESSION: 1. Interval placement of a superior mesenteric artery stent which is patent. Distal branches of the SMA are patent. 2. Chronic occlusion of the celiac artery. The origin of the SOLOMON is occluded, however there is distal filling.
--- NOTE | ~2022-12-21 | XR_ITS ---
EXAMINATION: XR CHEST CLINICAL INFORMATION: Chest pain COMPARISON: Chest x-ray on 11/27/2021 TECHNIQUE: 2 views of the chest were obtained. FINDINGS: No significant abnormality is noted involving the heart, lungs, mediastinum, bony thorax or soft tissues. XR/XR chest 2V IMPRESSION: Unremarkable examination.
--- NOTE | 2022-12-21 14:17 | ECG_ITS ---
Test Reason : CP Blood Pressure : / mmHG Vent. Rate : 089 BPM Atrial Rate : 089 BPM P-R Int : 114 ms QRS Dur : 088 ms QT Int : 314 ms P-R-T Axes : 079 021 -01 degrees QTc Int : 382 ms Normal sinus rhythm Biatrial enlargement Minimal voltage criteria for LVH, may be normal variant ( [place] product ) Inferior T wave changes - consider ischemia Abnormal ECG When compared with ECG of 28-OCT-2022 21:17, Inferior T wave changes Referred By: Sanjuana Fung Electronically Signed By:Jordan Ramírez
[2022-12-21 14:31] VITALS: BP 128/84; PULSE 76; RESP 18; TEMP 36.9; O2SAT 99; BMI 19.8
--- NOTE | 2022-12-21 14:32 | ED.GENADULT ---
HPI - General Adult General Chief complaint: Chest Pain <MARISOL Bermeo - Last Filed: 12/21/22 14:32> Stated complaint: chest tightness <MARISOL Bermeo - Last Filed: 12/21/22 14:32> Time Seen by Provider: 12/21/22 15:30 <MARISOL Bermeo - Last Filed: 12/21/22 14:32> Source: patient <MARISOL Blackman - Last Filed: 12/21/22 17:52> Mode of arrival: ambulatory <MARISOL Blackman - Last Filed: 12/21/22 17:52> History of Present Illness HPI narrative: 47-year-old male with a past medical history of GERD, diarrhea, mesenteric ischemia w/ SMA and celiac artery stenosis s/p stenting at [facility] in Oct, presenting to the ED complaining of epigastric/LUQ and substernal chest pain since last night. Reports pain woke him up from sleep with associated nausea and vomiting. Admits pain feels similar to prior mesenteric ischemia. Denies fever, SOB, dysuria/hematuria <MARISOL Blackman - Last Filed: 12/21/22 17:52> Related Data Home medications: Home Medications Medication Instructions Recorded Confirmed sucralfate 1 gram tablet 1 tab PO BEDTIME 06/02/22 07/23/22 clopidogrel 75 mg tablet 75 mg PO DAILY 12/16/22 famotidine 40 mg tablet 40 mg PO BEDTIME 12/16/22 mirtazapine 15 mg tablet 15 mg PO BEDTIME 12/16/22 Previous Rx's Medication Instructions Recorded diclofenac sodium 1 % topical gel 2 g topical QID PRN elbow pain 11/29/21 #100 grams ketotifen fumarate 0.025 % (0.035 1 drp ophthalmic (eye) BID #5 mL 03/01/22 %) eye drops (Allergy Eye (ketotifen)) lansoprazole 30 mg capsule,delayed 30 mg PO BID #90 caps 04/17/22 release megestrol 40 mg tablet 40 mg PO DAILY #30 tabs 05/23/22 loperamide 2 mg capsule 2 mg PO Q6H PRN Diarrhea #30 caps 06/05/22 lorazepam 1 mg tablet (Ativan) 1 mg PO BID PRN anxiety #20 tabs 06/16/22 ondansetron 4 mg disintegrating 4 mg PO Q8H PRN nausea and 08/23/22 tablet vomiting #30 tabs peg-electrolyte solution 420 gram 240 ml PO Q10M #4,000 mL 08/23/22 oral solution aluminum-mag hydroxide-simethicone 5 ml PO 5XD PRN dyspepsia #355 mL 10/29/22 200 mg-200 mg-20 mg/5 mL oral susp (Maalox Advanced) aspirin 81 mg capsule 81 mg PO DAILY #30 caps 10/29/22 mesalamine 0.375 gram 1.5 g PO QAM #120 caps 11/20/22 capsule,extended release 24 hr (Apriso) peg-electrolyte solution 420 gram 240 ml PO Q10M #4,000 mL 12/16/22 oral solution rosuvastatin 10 mg tablet (Crestor) 10 mg PO DAILY #30 tabs 12/16/22 <MARISOL Bermeo Last Filed: 12/21/22 14:32> Allergies/adverse reactions: Allergies Allergy/AdvReac Type Severity Reaction Status Date / Time No Known Allergies Allergy Verified 09/25/22 15:23 <MARISOL Bermeo Last Filed: 12/21/22 14:32> Review of Systems Review of Systems: Constitutional: No Fever, No Chills, No Fatigue, No Malaise ENT/Mouth: No Hearing loss, No Ear Pain, No Nasal Congestion, No sore throat, No Rhinorrhea, No Swallowing Difficulty Eyes: No Eye Pain, No Swelling, No Redness, No Vision Changes Cardiovascular: + Chest Pain, No SOB, No Dyspnea on Exertion, No Orthopnea, No Edema, No Palpitations Respiratory: No Cough, No Sputum, No Dyspnea Gastrointestinal: + Nausea, + Vomiting, No Diarrhea, No Constipation, + Abdominal pain, No Hematochezia, No Melena Genitourinary: No irregular bleeding, No Dysuria, No Urinary Frequency, No Hematuria, No Urinary Incontinence/retention, No Flank Pain Musculoskeletal: No joint pain, No Myalgias, No Joint Swelling Skin: No Skin Lesions, No rash Neuro: No Weakness, No Loss of Consciousness, No Dizziness, No Headache <MARISOL Blackman Last Filed: 12/21/22 17:52> Yes all other systems are reviewed and are negative <MARISOL Blackman Filed: 12/21/22 17:52> Constitutional: Constitutional: Reports as per HPI <MARISOL Blackman - Last Filed: 12/21/22 17:52> [facility] Past Medical History Attestation statement: The following information was validated with the patient. <MARISOL Blackman - Last Filed: 12/21/22 17:52> Medical History: Medical History Chronic GERD Diarrhea Granular cell tumor Impaired fasting glucose Normocytic normochromic anemia Not ready to quit smoking <MARISOL Bermeo - Last Filed: 12/21/22 14:32> Surgical History: Surgical History H/O heart artery stent Hx of colonoscopy No pertinent past surgical history <MARISOL Bermeo - Last Filed: 12/21/22 14:32> Family History Family History: Family History Maternal Aunt No problems noted. Maternal Aunt No problems noted. <MARISOL Bermeo - Last Filed: 12/21/22 14:32> Social History Social History: Social History Household Members: Spouse Housing: Apartment Do you presently have visiting nurse or other home services: No Patient Tobacco Use Status: Current everyday Tobacco user Tobacco use type: Cigarette and Cigar Cigarettes Per Day: 2 Years Smoked: 3 e-Cigarette/Vaping Use: Never Used Advance Directives: No Advance Directives Information Provided: Yes service: No Current occupational status: employed Cognitive needs: No Hearing needs: No Vision needs: No <MARISOL Bermeo - Last Filed: 12/21/22 14:32> Physical Exam ED Vital Signs: Vital Signs - 24 hr 12/21/22 14:31 12/21/22 14:49 12/21/22 15:47 Temperature 98.5 F 98.7 F Pulse Rate 76 81 77 Respiratory Rate 18 19 24 H Blood Pressure 128/84 149/89 H Pulse Oximetry 99 100 Oxygen Delivery Method Room Air Room Air BMI result Body Mass Index 19.8 <MARISOL Bermeo - Last Filed: 12/21/22 14:32> Vital Signs - 24 hr 12/21/22 14:31 12/21/22 14:49 12/21/22 15:47 Temperature 98.5 F 98.7 F Pulse Rate 76 81 77 Respiratory Rate 18 19 24 H Blood Pressure 128/84 149/89 H Pulse Oximetry 99 100 Oxygen Delivery Method Room Air Room Air BMI result Body Mass Index 19.8 <MARISOL Blackman - Last Filed: 12/21/22 17:52> Const General: cooperative, healthy appearing and no acute distress <MARISOL Blackman - Last Filed: 12/21/22 17:52> Orientation/consciousness: patient oriented x3 <MARISOL Blackman - Last Filed: 12/21/22 17:52> Limitations: no limitations <MARISOL Blackman - Last Filed: 12/21/22 17:52> HENMT Head: Yes normal to inspection and Yes atraumatic <MARISOL Blackman - Last Filed: 12/21/22 17:52> Ears: hearing grossly normal bilaterally <MARISOL Blackman - Last Filed: 12/21/22 17:52> General nose exam: Normal external nose present <MARISOL Blackman Last Filed: 12/21/22 17:52> Face and sinus: Yes normal facial exam <MARISOL Blackman - Last Filed: 12/21/22 17:52> Eyes General: appearance normal, both eyes and all related structures <MARISOL Blackman - Last Filed: 12/21/22 17:52> EOM: EOMs intact bilaterally <MARISOL Blackman Last Filed: 12/21/22 17:52> Neck Neck: Yes normal visual inspection and Yes no meningeal signs <MARISOL Blackman Last Filed: 12/21/22 17:52> Resp Effort & Inspection: normal respiratory effort and no respiratory distress <MARISOL Blackman - Last Filed: 12/21/22 17:52> Auscultation: clear to auscultation bilaterally <MARISOL Blackman Last Filed: 12/21/22 17:52> Cardio Rate: regular rate <MARISOL Blackman - Last Filed: 12/21/22 17:52> Heart sounds: S1 normal heart sound present and S2 normal heart sound present <MARISOL Blackman - Last Filed: 12/21/22 17:52> GI Inspection: Yes normal to inspection <MARISOL Blackman - Last Filed: 12/21/22 17:52> Palpation (GI): Soft to palpation, Tenderness to palpation present (GI) (diffusely) in the epigastrum and in the LUQ; with no rebound tenderness, no guarding and not rigid <MARISOL Blackman - Last Filed: 12/21/22 17:52> General: Yes no CVA tenderness <Leighann Woodall PA - Last Filed: 12/21/22 17:52> Back/Spine/Pelvis Back: no CVA tenderness <MARISOL Blackman - Last Filed: 12/21/22 17:52> Skin Rashes: no rashes <MARISOL Blackman - Last Filed: 12/21/22 17:52> Wounds: no wounds <MARISOL Blackman - Last Filed: 12/21/22 17:52> Neuro General: patient oriented x3, tone normal and no meningeal signs <MARISOL Blackman - Last Filed: 12/21/22 17:52> Gait exam (Neuro): Normal gait present <MARISOL Blackman - Last Filed: 12/21/22 17:52> Extrem General: Yes normal to inspection <MARISOL Blackman - Last Filed: 12/21/22 17:52> Course Course Course Narrative: RME performed by Sanjuana Fung PA-C. Patient is a 47 year old assigned male at presenting to the emergency department with chest pain. Labs, imaging, swab ordered. Patient placed back in the waiting room pending room availability and results. <MARISOL Bermeo Last Filed: 12/21/22 14:32> RME performed by Sanjuana Fung PA-C. Patient is a 47 year old assigned male at presenting to the emergency department with chest pain. Labs, imaging, swab ordered. Patient placed back in the waiting room pending room availability and results. -1745--no leukocytosis. Troponin WNL. Mild elevation in total bilirubin and lipase, Labs otherwise reassuring. Lactic acid negative. -chest x-ray unremarkable CT angio chest aorta IMPRESSION: 1.? Interval placement of a superior mesenteric artery stent which is patent. Distal branches of the SMA are patent. 2.? Chronic occlusion of the celiac artery. The origin of the SOLOMON is occluded, however there is distal filling. >> Case d/w Dr. Anaya's who is in agreement with plan >2973--on re-evaluation patient reports symptomatic improvement. Results discussed. Recommended close follow-up with GI. He verbalized understanding Results discussed with patient including worrisome signs and symptoms and strict return precautions, and when to return to the emergency department. They verbalized understanding and feel safe for discharge at this time. <MARISOL Blackman - Last Filed: 12/21/22 17:52> Medications Administered Generic Name Dose Route Start Last Admin Trade Name Freq PRN Reason Stop Dose Admin Sodium Chloride 1,000 mls @ 999 mls/hr 12/21/22 17:00 12/21/22 16:55 Ns IV 12/21/22 18:00 999 mls/hr .Q1H1M LATOSHA Administration Discontinued Medications Generic Name Dose Route Start Last Admin Trade Name Freq PRN Reason Stop Dose Admin Iohexol 100 ml 12/21/22 16:38 12/21/22 16:38 Iohexol 350 Mg/Ml 100 Ml Infus..Btl IV 12/21/22 16:39 80 ml ONCE ONE Administration Morphine Sulfate 2 mg 12/21/22 16:54 12/21/22 16:59 Morphine Sulfate 2 Mg/Ml Cartridge IVPUSH 12/21/22 16:55 2 mg ONCE ONE Administration Protocol <MARISOL Bermeo - Last Filed: 12/21/22 14:32> Medications Administered Generic Name Dose Route Start Last Admin Trade Name Freq PRN Reason Stop Dose Admin Sodium Chloride 1,000 mls @ 999 mls/hr 12/21/22 17:00 12/21/22 16:55 Ns IV 12/21/22 18:00 999 mls/hr .Q1H1M LATOSHA Administration Discontinued Medications Generic Name Dose Route Start Last Admin Trade Name Freq PRN Reason Stop Dose Admin Iohexol 100 ml 12/21/22 16:38 12/21/22 16:38 Iohexol 350 Mg/Ml 100 Ml Infus..Btl IV 12/21/22 16:39 80 ml ONCE ONE Administration Morphine Sulfate 2 mg 12/21/22 16:54 12/21/22 16:59 Morphine Sulfate 2 Mg/Ml Cartridge IVPUSH 12/21/22 16:55 2 mg ONCE ONE Administration Protocol <MARISOL Blackman - Last Filed: 12/21/22 17:52> Medical Decision Making Medical Decision Making MDM Narrative: 47-year-old male with a past medical history of GERD, diarrhea, mesenteric ischemia w/ SMA and celiac artery stenosis s/p stenting at [facility] in Oct, presenting to the ED complaining of epigastric/LUQ and substernal chest pain since last night. On exam vital signs stable, NAD, nontoxic appearing, abdomen soft with diffuse tenderness > epigastrium/LUQ, no rebound or guarding, no CVAT, lungs CTA. Concern for postsurgical complications/stent issue or clotting vs pancreatitis vs colitis vs atypical ACS. Lower suspicion for diverticulitis/appendicitis at this time Plan: EKG, labs, CXR, CT AP, UA, IVF, pain control Please refer to course for remaining clinical decision making, interpretation of labs/imaging results, and discussions with consultants and/or family members. <MARISOL Blackman - Last Filed: 12/21/22 17:52> Differential Diagnosis Differential Diagnoses: The differential diagnosis associated with the presentation includes <MARISOL Blackman - Last Filed: 12/21/22 17:52> As above <MARISOL Blackman - Last Filed: 12/21/22 17:52> Admission/Observation Consideration of admission/observation: Escalation of care including admission/observation considered <MARISOL Balckman - Last Filed: 12/21/22 17:52> Lab Data [place] Lab Attestation statement: I reviewed the patient's lab results. <MARISOL Blackman - Last Filed: 12/21/22 17:52> Result Diagrams: 12/21/22 14:31 12/21/22 14:31 <MARISOL Bermeo - Last Filed: 12/21/22 14:32> Labs: Lab Results 12/21/22 12/21/22 12/21/22 Range/Units 14:31 14:31 14:31 WBC 10.4 (4.8-10.8) X10*3/uL RBC 4.86 (4.60-5.80) X10*6/uL Hgb 15.1 (14.0-18.0) g/dl Hct 45.3 (42.0-52.0) % MCV 93.2 (80.0-98.0) fL MCH 31.1 (27.0-33.0) pg MCHC 33.3 (31.0-36.0) g/dl RDW 14.2 (11.0-16.0) % Plt Count 276 (160-400) X10*3/uL MPV 8.7 L (9.4-12.4) fL Immature Gran % (Auto) 0.4 (0.0-0.4) % Neut % (Auto) 66.8 (45-73) % Lymph % (Auto) 24.0 (20-40) % [place] % (Auto) 8.3 (2-11) % Eos % (Auto) 0.1 (0-4) % Baso % (Auto) 0.4 (0-2) % Lymph # (Auto) 2.5 (1.2-4.9) X10*3/uL [place] # (Auto) 0.9 (0.1-1.2) X10*3/uL Eos # (Auto) 0.0 (0.0-0.4) X10*3/uL Baso # (Auto) 0.0 (0.0-0.2) X10*3/uL Abs Immat Gran (auto) 0.04 H (0.00-0.03) X10*3/uL Absolute Neuts (auto) 7.0 (2.0-8.3) x10*3/uL Absolute Nucleated RBC 0.000 (0.0-0.012) X10*3/uL Nucleated RBC % (auto) 0.0 (0.0-0.2) /100WBC PT (10.0-13.1) SEC INR (0.9-1.1) Sodium 141 (135-145) mmol/L Potassium 4.2 (3.3-5.1) mmol/L Chloride 102 (96-108) mmol/L Carbon Dioxide 28 (22-29) mmol/L Anion Gap 15 (12-20) BUN 9 (9-16) mg/dL Creatinine 0.82 (0.5-1.4) mg/dL Estim Creat Clear Calc 104.7 Estimated GFR > 60 Random Glucose 162 H (60-115) mg/dL Lactic Acid (0.5-2.0) mmol/L Calcium 9.7 D (8.4-10.2) mg/dL Magnesium 2.0 (1.6-2.6) mg/dL Total Bilirubin 1.4 H (0.0-1.0) mg/dL AST 17 (5-37) U/L ALT 22 (0-40) U/L Alkaline Phosphatase 84 (39-117) U/L Troponin I High Sens (<3.5-35.0) ng/L B-Natriuretic Peptide 17 (<100) pg/mL Total Protein 7.6 (6.5-8.0) g/dL Albumin 4.6 (3.5-5.0) g/dL Lipase 105 H (8-78) U/L 12/21/22 12/21/22 12/21/22 Range/Units 14:31 16:46 17:07 WBC (4.8-10.8) X10*3/uL RBC (4.60-5.80) X10*6/uL Hgb (14.0-18.0) g/dl Hct (42.0-52.0) % MCV (80.0-98.0) fL MCH (27.0-33.0) pg MCHC (31.0-36.0) g/dl RDW (11.0-16.0) % Plt Count (160-400) X10*3/uL MPV (9.4-12.4) fL Immature Gran % (Auto) (0.0-0.4) % Neut % (Auto) (45-73) % Lymph % (Auto) (20-40) % [place] % (Auto) (2-11) % Eos % (Auto) (0-4) % Baso % (Auto) (0-2) % Lymph # (Auto) (1.2-4.9) X10*3/uL [place] # (Auto) (0.1-1.2) X10*3/uL Eos # (Auto) (0.0-0.4) X10*3/uL Baso # (Auto) (0.0-0.2) X10*3/uL Abs Immat Gran (auto) (0.00-0.03) X10*3/uL Absolute Neuts (auto) (2.0-8.3) x10*3/uL Absolute Nucleated RBC (0.0-0.012) X10*3/uL Nucleated RBC % (auto) (0.0-0.2) /100WBC PT 11.4 (10.0-13.1) SEC INR 1.0 (0.9-1.1) Sodium (135-145) mmol/L Potassium (3.3-5.1) mmol/L Chloride (96-108) mmol/L Carbon Dioxide (22-29) mmol/L Anion Gap (12-20) BUN (9-16) mg/dL Creatinine (0.5-1.4) mg/dL Estim Creat Clear Calc Estimated GFR Random Glucose (60-115) mg/dL Lactic Acid 0.9 (0.5-2.0) mmol/L Calcium (8.4-10.2) mg/dL Magnesium (1.6-2.6) mg/dL Total Bilirubin (0.0-1.0) mg/dL AST (5-37) U/L ALT (0-40) U/L Alkaline Phosphatase (39-117) U/L Troponin I High Sens < 2.7 (<3.5-35.0) ng/L B-Natriuretic Peptide (<100) pg/mL Total Protein (6.5-8.0) g/dL Albumin (3.5-5.0) g/dL Lipase (8-78) U/L <MARISOL Bermeo - Last Filed: 12/21/22 14:32> Lab Results 12/21/22 12/21/22 12/21/22 Range/Units 14:31 14:31 14:31 WBC 10.4 (4.8-10.8) X10*3/uL RBC 4.86 (4.60-5.80) X10*6/uL Hgb 15.1 (14.0-18.0) g/dl Hct 45.3 (42.0-52.0) % MCV 93.2 (80.0-98.0) fL MCH 31.1 (27.0-33.0) pg MCHC 33.3 (31.0-36.0) g/dl RDW 14.2 (11.0-16.0) % Plt Count 276 (160-400) X10*3/uL MPV 8.7 L (9.4-12.4) fL Immature Gran % (Auto) 0.4 (0.0-0.4) % Neut % (Auto) 66.8 (45-73) % Lymph % (Auto) 24.0 (20-40) % [place] % (Auto) 8.3 (2-11) % Eos % (Auto) 0.1 (0-4) % Baso % (Auto) 0.4 (0-2) % Lymph # (Auto) 2.5 (1.2-4.9) X10*3/uL [place] # (Auto) 0.9 (0.1-1.2) X10*3/uL Eos # (Auto) 0.0 (0.0-0.4) X10*3/uL Baso # (Auto) 0.0 (0.0-0.2) X10*3/uL Abs Immat Gran (auto) 0.04 H (0.00-0.03) X10*3/uL Absolute Neuts (auto) 7.0 (2.0-8.3) x10*3/uL Absolute Nucleated RBC 0.000 (0.0-0.012) X10*3/uL Nucleated RBC % (auto) 0.0 (0.0-0.2) /100WBC PT (10.0-13.1) SEC INR (0.9-1.1) Sodium 141 (135-145) mmol/L Potassium 4.2 (3.3-5.1) mmol/L Chloride 102 (96-108) mmol/L Carbon Dioxide 28 (22-29) mmol/L Anion Gap 15 (12-20) BUN 9 (9-16) mg/dL Creatinine 0.82 (0.5-1.4) mg/dL Estim Creat Clear Calc 104.7 Estimated GFR > 60 Random Glucose 162 H (60-115) mg/dL Lactic Acid (0.5-2.0) mmol/L Calcium 9.7 D (8.4-10.2) mg/dL Magnesium 2.0 (1.6-2.6) mg/dL Total Bilirubin 1.4 H (0.0-1.0) mg/dL AST 17 (5-37) U/L ALT 22 (0-40) U/L Alkaline Phosphatase 84 (39-117) U/L Troponin I High Sens (<3.5-35.0) ng/L B-Natriuretic Peptide 17 (<100) pg/mL Total Protein 7.6 (6.5-8.0) g/dL Albumin 4.6 (3.5-5.0) g/dL Lipase 105 H (8-78) U/L 12/21/22 12/21/22 12/21/22 Range/Units 14:31 16:46 17:07 WBC (4.8-10.8) X10*3/uL RBC (4.60-5.80) X10*6/uL Hgb (14.0-18.0) g/dl Hct (42.0-52.0) % MCV (80.0-98.0) fL MCH (27.0-33.0) pg MCHC (31.0-36.0) g/dl RDW (11.0-16.0) % Plt Count (160-400) X10*3/uL MPV (9.4-12.4) fL Immature Gran % (Auto) (0.0-0.4) % Neut % (Auto) (45-73) % Lymph % (Auto) (20-40) % [place] % (Auto) (2-11) % Eos % (Auto) (0-4) % Baso % (Auto) (0-2) % Lymph # (Auto) (1.2-4.9) X10*3/uL [place] # (Auto) (0.1-1.2) X10*3/uL Eos # (Auto) (0.0-0.4) X10*3/uL Baso # (Auto) (0.0-0.2) X10*3/uL Abs Immat Gran (auto) (0.00-0.03) X10*3/uL Absolute Neuts (auto) (2.0-8.3) x10*3/uL Absolute Nucleated RBC (0.0-0.012) X10*3/uL Nucleated RBC % (auto) (0.0-0.2) /100WBC PT 11.4 (10.0-13.1) SEC INR 1.0 (0.9-1.1) Sodium (135-145) mmol/L Potassium (3.3-5.1) mmol/L Chloride (96-108) mmol/L Carbon Dioxide (22-29) mmol/L Anion Gap (12-20) BUN (9-16) mg/dL Creatinine (0.5-1.4) mg/dL Estim Creat Clear Calc Estimated GFR Random Glucose (60-115) mg/dL Lactic Acid 0.9 (0.5-2.0) mmol/L Calcium (8.4-10.2) mg/dL Magnesium (1.6-2.6) mg/dL Total Bilirubin (0.0-1.0) mg/dL AST (5-37) U/L ALT (0-40) U/L Alkaline Phosphatase (39-117) U/L Troponin I High Sens < 2.7 (<3.5-35.0) ng/L B-Natriuretic Peptide (<100) pg/mL Total Protein (6.5-8.0) g/dL Albumin (3.5-5.0) g/dL Lipase (8-78) U/L <MARISOL Blackman - Last Filed: 12/21/22 17:52> Radiology Impression Discussion of test interpretation with radiology: I have reviewed the radiologist's reading. <MARISOL Blackman - Last Filed: 12/21/22 17:52> External Record Review External record reviewed: Inpatient record, Office record, Outpatient record, Prior outpatient labs, Prior outpatient radiology, Primary care record and Outside ED record <MARISOL Blackman - Last Filed: 12/21/22 17:52> Discharge Plan Discharge Clinical Impression: Abdominal pain Qualifiers: Abdominal location: epigastric Qualified Code(s): R10.13 - Epigastric pain <MARISOL Bermeo - Last Filed: 12/21/22 14:32> Patient Disposition: Home, Self-Care <MARISOL Bermeo Last Filed: 12/21/22 14:32> Instructions: Abdominal Pain (ED) <MARISOL Bermeo - Last Filed: 12/21/22 14:32> Additional Instructions: Your blood work is reassuring. Your CT scan shows a patent stent Please call your stadium attendant and surgeon and inform them your in the emergency department, please of close follow-up Continue home medications If symptoms recur, persist or worsen return to the emergency department <MARISOL Bermeo - Last Filed: 12/21/22 14:32> Prescriptions: No Action mesalamine [Apriso] 0.375 gram capsule,extended release 24hr 1.5 g PO QAM Qty: 120 2RF lansoprazole 30 mg capsule,delayed release(DR/EC) 30 mg PO BID Qty: 90 0RF Rx Instructions: Take at 8 am and 8 pm on empty stomach and eat 15 mins later lorazepam [Ativan] 1 mg tablet 1 mg PO BID PRN (Reason: anxiety) Qty: 20 0RF alum-mag hydroxide-simeth [Maalox Advanced] 200-200-20 mg/5 mL suspension 5 ml PO 5XD PRN (Reason: dyspepsia) Qty: 355 0RF Rx Instructions: administer between meals and at bedtime aspirin 81 mg capsule 81 mg PO DAILY Qty: 30 0RF sucralfate 1 gram tablet 1 tab PO BEDTIME loperamide 2 mg Capsule 2 mg PO Q6H PRN (Reason: Diarrhea) Qty: 30 0RF diclofenac sodium 1 % gel 2 g topical QID PRN (Reason: elbow pain ) Qty: 100 0RF Rx Instructions: apply to single elbow, wrist or hand; for hand includes palm/fingers/back of hand ketotifen fumarate [Allergy Eye (ketotifen)] 0.025 % (0.035 %) drops 1 drp ophthalmic (eye) BID Qty: 5 6RF Rx Instructions: administer at least 8 hours apart megestrol 40 mg tablet 40 mg PO DAILY Qty: 30 3RF peg-electrolyte soln 420 gram recon soln 240 ml PO Q10M Qty: 4000 0RF Rx Instructions: until fecal effluent is clear; do not exceed a total volume of 2,000 mL ondansetron 4 mg tablet,disintegrating 4 mg PO Q8H PRN (Reason: nausea and vomiting) Qty: 30 0RF famotidine 40 mg tablet 40 mg PO BEDTIME mirtazapine 15 mg tablet 15 mg PO BEDTIME clopidogrel 75 mg tablet 75 mg PO DAILY rosuvastatin [Crestor] 10 mg tablet 10 mg PO DAILY Qty: 30 3RF peg-electrolyte soln 420 gram recon soln 240 ml PO Q10M Qty: 4000 0RF Rx Instructions: until fecal effluent is clear; <MARISOL Bermeo - Last Filed: 12/21/22 14:32> Referrals: [facility] [place] [facility] [Provider Group] - 1 day Ngoc Fung MD [Primary Care Provider] - 5 days <MARISOL Bermeo - Last Filed: 12/21/22 14:32>
[2022-12-21 14:35] LABS: MANUAL DIFF FLAG NO
[2022-12-21 14:36] LABS: Basophils Percent Auto 0.4 % (0-2); Eosinophils Percent Auto 0.1 % (0-4); Hematocrit 45.3 % (42.0-52.0); Hemoglobin 15.1 g/dl (14.0-18.0); Imm Gran Abs Auto 0.04 X10*3/uL (0.00-0.03); Imm Gran Pct Auto 0.4 % (0.0-0.4); Lymphocytes Absolute Auto 2.5 X10*3/uL (1.2-4.9); Mean Corpuscular HGB Conc 33.3 g/dl (31.0-36.0); Mean Corpuscular Hemoglobin 31.1 pg (27.0-33.0); Mean Corpuscular Volume 93.2 fL (80.0-98.0); Mean Platelet Volume 8.7 fL (9.4-12.4); Monocytes Absolute Auto 0.9 X10*3/uL (0.1-1.2); Monocytes Percent Auto 8.3 % (2-11); Neutrophils Percent Auto 66.8 % (45-73); Platelet Count 276 X10*3/uL (160-400); Red Blood Count 4.86 X10*6/uL (4.60-5.80); Red Cell Distribution Width 14.2 % (11.0-16.0); White Blood Count 10.4 X10*3/uL (4.8-10.8)
[2022-12-21 14:49] VITALS: PULSE 81; RESP 19
--- NOTE | 2022-12-21 14:50 | PC.NURSE ---
sr on monitor, skin wpd, c/o chest pressure since yesterday, had recent procedure at [facility] on aorta, dr gibson aware and given EKG
[2022-12-21 14:52] LABS: Alanine Aminotransferase 22 U/L (0-40); Albumin Level 4.6 g/dL (3.5-5.0); Alkaline Phosphatase 84 U/L (39-117); Anion Gap 15 (12-20); Aspartate Amino Transferase 17 U/L (5-37); Bilirubin Total 1.4 mg/dL (0.0-1.0); Blood Urea Nitrogen 9 mg/dL (9-16); Calcium 9.7 mg/dL (8.4-10.2); Carbon Dioxide 28 mmol/L (22-29); Chloride 102 mmol/L (96-108); Creatinine Clr Calc Pharmacy 104.7; Estimated Glomerular Filt Rate > 60; Glucose Random 162 mg/dL (60-115); Potassium 4.2 mmol/L (3.3-5.1); Sodium 141 mmol/L (135-145); Total Protein 7.6 g/dL (6.5-8.0)
[2022-12-21 14:58] LABS: B Type Natriuretic Peptide 17 pg/mL (<100)
[2022-12-21 15:01] LABS: Troponin-I High Sensitivity < 2.7 ng/L (<3.5-35.0)
--- NOTE | 2022-12-21 15:13 | PC.NURSE ---
Resuming care of this patient at 1500, pt is a/ox4. resting comfortable at this time, all needs met
[2022-12-21 15:47] VITALS: BP 149/89; PULSE 77; RESP 24; TEMP 37.1; O2SAT 100
[2022-12-21] MEDS: iohexoL 350 MG/ML 100 ML INFUS..BTL IV (16:38)
[2022-12-21] MEDS: 0.9 % Sodium Chloride 1,000 ML 999 ML IV (16:55)
[2022-12-21 16:56] LABS: Prothrombin Time 11.4 SEC (10.0-13.1)
[2022-12-21] MEDS: Morphine Sulfate 2 MG/ML CARTRIDGE IVPUSH (16:59)
[2022-12-21 17:12] LABS: Lipase 105 U/L (8-78)
[2022-12-21 17:34] LABS: Lactic Acid 0.9 mmol/L (0.5-2.0)
== END 2022-12-21 18:04 | disposition home or self-care (01) ==
PROVIDERS: Physician Assistant; Physician Assistant Medical; Emergency Provider Emergency Medicine; PCP Internal Medicine
DX: R10.13 Epigastric pain (principal); R11.2 Nausea with vomiting, unspecified; K21.9 Gastro-esophageal reflux disease without esophagitis; F17.210 Nicotine dependence, cigarettes, uncomplicated; Z95.828 Presence of other vascular implants and grafts; Z79.899 Other long term (current) drug therapy; Z79.82 Long term (current) use of aspirin; Z79.02 Long term (current) use of antithrombotics/antiplatelets
CPT/HCPCS: 36415; 71046; 71275; 74174; 80053; 83605; 83690; 83735; 83880; 84484; 85025; 85610; 93005; 96361; 96374; 99284; 99285; J2270; Q9967

== ENCOUNTER 2023-02-24 13:58 | Outpatient (AMB) | payer OTHER, SELFPAY ==
--- NOTE | 2023-02-24 13:59 | A.OFFPC_ITS ---
Vital Signs 02/24/23 14:01 Height 6 ft Weight 151 lb BMI 20.5 BP 120/80 Blood Pressure Location Rt brachial Position Sitting Pulse 101 H Pulse Source Pulse Oximeter Pulse Oximetry (%) 98 Oxygen Delivery Method Room Air Intake Visit Reasons: Ear complaints Intake Note: Patient here for left ear pain, feels like it is blocked is unable to lay on that side and feels like when he lays on the right side the liquid feels like it is flowing. Allergies No Known Allergies Allergy (Verified 02/24/23 14:23) Medication List - Last Reconciled 02/24/23 by Ngoc Fung MD alum-mag hydroxide-simeth 200-200-20 mg/5 mL (Maalox Advanced) 5 mL PO 5XD PRN aspirin 81 mg PO DAILY clopidogrel 75 mg PO DAILY diclofenac sodium 1% 2 grams topical QID PRN famotidine 40 mg PO BEDTIME ketotifen fumarate 0.025%(0.035%) (Allergy Eye (ketotifen)) 1 drp ophthalmic (eye) BID lansoprazole 30 mg PO BID loperamide 2 mg PO Q6H PRN lorazepam (Ativan) 1 mg PO BID PRN megestrol 40 mg PO DAILY mesalamine ER (Apriso) 1.5 grams (4 x 0.375 gram) PO QAM mirtazapine 15 mg PO BEDTIME ondansetron 4 mg PO Q8H PRN peg-electrolyte soln 420 gram 240 mL PO Q10M peg-electrolyte soln 420 gram 240 mL PO Q10M rosuvastatin (Crestor) 10 mg PO DAILY sucralfate 1 tab PO BEDTIME Tobacco use date assessed: 02/24/23 HPI Ear complaints HPI Details 48-year-old male presents to clinic [facility] complaining of pain in his left ear, with sensation of feeling blocked and decreased hearing. This has been present now for the last several days and feels like there is fluid inside his ear.. [facility] Medical History (Updated 02/24/23 @ 14:26 by Ngoc Fung MD) Chronic vascular insufficiency of intestine Impaired fasting glucose Normocytic normochromic anemia Diarrhea Granular cell tumor Not ready to quit smoking Chronic GERD Surgical History H/O heart artery stent Hx of colonoscopy No pertinent past surgical history Family History Maternal Aunt No problems noted. Maternal Aunt No problems noted. Social History Household Members: Spouse Housing: Apartment Do you presently have visiting nurse or other home services: No Patient Tobacco Use Status: Current everyday Tobacco user Tobacco use type: Cigarette and Cigar Cigarettes Per Day: 2 Years Smoked: 3 e-Cigarette/Vaping Use: Never Used service: No Current occupational status: employed Cognitive needs: No Hearing needs: No Vision needs: No Questionnaire Thrive Questionnaire Date Thrive assessed: 11/27/21 KAMILA-7 AMB Questionnaire KAMILA-7 Date KAMILA - 7 assessed: 11/27/21 Source: Developed by Drs. Greg Hernandez, Whitley Park, Dustin Ann and colleagues, with an educational hans from [employer]. Review of Systems Const All systems reviewed & are unremarkable except as noted in HPI and below Denies fever(s) and Reports headache(s) ENT Reports headache(s) Card Denies dyspnea Resp Denies chest congestion, Denies cough and Denies dyspnea Neuro Reports headache(s) Physical exam (Primary Care) Vital Signs: Last Vital Signs Pulse 101 H 02/24/23 14:01 BP 120/80 02/24/23 14:01 Pulse Ox 98 02/24/23 14:01 Oxygen Delivery Method Room Air 02/24/23 14:01 BMI result Body Mass Index 20.5 Tobacco/Smoking Status: Tobacco use Status Tobacco use date assessed 02/24/23 02/24/23 14:08 Patient Tobacco Use Status Current everyday Tobacco 02/24/23 14:03 Tobacco use type Cigarette,Cigar 02/24/23 14:03 e-Cigarette/Vaping Use Never Used 02/24/23 14:03 Thrive Assessment: Date of Thrive Assessment Date Thrive assessed 11/27/21 02/24/23 14:03 Const General: comfortable and no acute distress HENMT Ears: Abnormal EAC present erythema on the left and EAC tenderness on the left General nose exam: Normal external nose present Face and sinus: Yes sinuses nontender and Yes face symmetric Neck Neck: Yes full ROM, Yes no lymphadenopathy and Yes supple Resp Auscultation: clear to auscultation bilaterally Assessment and Plan Assessment & Plan (1) Acute otitis externa of left ear: Code(s): H60.502 - Unspecified acute noninfective otitis externa, left ear Qualifiers: Otitis externa type: unspecified type Qualified Code(s): H60.502 - Unspecified acute noninfective otitis externa, left ear Medications: New amoxicillin-pot clavulanate 875-125 mg Take with a meal/food every 12 hours for 10 days 1 tab PO Q12H 20 tabs 0RF 10 days Discontinued rosuvastatin Discontinued Reason: Doctor's Order 10 mg PO DAILY 30 tabs 3RF Coding Level of Care Code Est Pt Level 3 (30807) Diagnoses Acute otitis externa of left ear, unspecified type H60.502 Otitis externa type: unspecified type
[2023-02-24 14:01] VITALS: BP 120/80; PULSE 101; O2SAT 98; BMI 20.5
== END 2023-02-24 14:38 | disposition home or self-care (01) ==
PROVIDERS: PCP Internal Medicine; Visit Provider Internal Medicine
DX: H60.502 Unspecified acute noninfective otitis externa, left ear (principal)
CPT/HCPCS: 99213

== ENCOUNTER 2023-02-28 10:02 | Outpatient (REF) | payer OTHER, SELFPAY ==
[2023-02-28 11:48] LABS: Alanine Aminotransferase 26 U/L (0-40); Albumin Level 3.7 g/dL (3.5-5.0); Alkaline Phosphatase 73 U/L (39-117); Anion Gap 9 (12-20); Aspartate Amino Transferase 20 U/L (5-37); Bilirubin Total 0.3 mg/dL (0.0-1.0); Blood Urea Nitrogen 8 mg/dL (9-16); Calcium 9.4 mg/dL (8.4-10.2); Carbon Dioxide 27 mmol/L (22-29); Chloride 107 mmol/L (96-108); Cholesterol 181 mg/dL; Estimated Glomerular Filt Rate > 60; Glucose Random 110 mg/dL (60-115); HDL Cholesterol 38 mg/dL; LDL Cholesterol Calculated 130 mg/dl; Potassium 4.4 mmol/L (3.3-5.1); Sodium 139 mmol/L (135-145); Total Protein 6.9 g/dL (6.5-8.0); Triglycerides 69 mg/dL
[2023-02-28 13:56] LABS: Reflex LDLD? No
== END 2023-02-28 10:03 | disposition home or self-care (01) ==
LOC: HO.HMGCLDS 10:02
PROVIDERS: Absent Provider Nurse Practitioner; PCP Internal Medicine; Visit Provider Internal Medicine Gastroenterology
DX: I70.90 Unspecified atherosclerosis (principal); K55.1 Chronic vascular disorders of intestine; K75.81 Nonalcoholic steatohepatitis (NASH)
CPT/HCPCS: 36415; 80053; 80061; 82550

== ENCOUNTER 2023-06-25 10:53 | Outpatient (AMB) | payer OTHER, SELFPAY ==
[2023-06-25 11:38] VITALS: BP 120/70; PULSE 74; O2SAT 97; BMI 22.5
--- NOTE | 2023-06-25 11:38 | A.OFFPC_ITS ---
Vital Signs 06/25/23 11:38 Height 6 ft Weight 166 lb BMI 22.5 BP 120/70 Blood Pressure Location Lt brachial Position Sitting Pulse 74 Pulse Source Pulse Oximeter Pulse Oximetry (%) 97 Oxygen Delivery Method Room Air Intake Visit Reasons: PE+ NEEDS PHQ9 + THRIVE Intake Note: patient is here today for PE Allergies No Known Allergies Allergy (Verified 08/28/23 03:21) Medication List - Last Reconciled 06/25/23 by Ngoc Fung MD alum-mag hydroxide-simeth 200-200-20 mg/5 mL (Maalox Advanced) 5 mL PO 5XD PRN aspirin 81 mg PO DAILY clopidogrel 75 mg PO DAILY diclofenac sodium 1% 2 grams topical QID PRN ketotifen fumarate 0.025%(0.035%) (Allergy Eye (ketotifen)) 1 drp ophthalmic (eye) BID mesalamine ER (Apriso) 1.5 grams (4 x 0.375 gram) PO QAM rosuvastatin (Crestor) 20 mg PO DAILY sucralfate 1 tab PO BEDTIME Tobacco use date assessed: 06/25/23 Dental Screening Dental Screen Date: 06/25/23 Did you have a dental visit in the last 12 months?: No Did you have a dental problem in the last 6 months where you did not have access to dental care?: No Was dental information given to patient?: Yes HPI PE+ NEEDS PHQ9 + THRIVE HPI Details 48-year-old male here today for his phys ical exam. 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 He is up-to-date with his screening colonoscopy done by Dr. Garduno 07/2022 with removal of a sessile polyp with adenomatous changes and presence of internal hemorrhoids. He was also started empirically on mesalamine for possible colitis by Dr. Garduno. At present he still continues to smoke cigar, with no desire to quit at present time. [facility] Medical History (Updated 08/28/23 @ 03:57 by Ngoc Fung MD) Superior mesenteric artery stenosis Celiac artery stenosis Vaccine refused by patient Cigar smoker unmotivated to quit Chronic vascular insufficiency of intestine Impaired fasting glucose Diarrhea Granular cell tumor Chronic GERD Surgical History (Updated 08/28/23 @ 03:57 by Ngoc Fung MD) Hx of colonoscopy Family History Maternal Aunt No problems noted. Maternal Aunt No problems noted. Social History Household Members: Spouse Housing: Apartment Do you presently have visiting nurse or other home services: No Patient Tobacco Use Status: Current everyday Tobacco user Tobacco use type: Cigarette and Cigar Cigarettes Per Day: 2 Years Smoked: 3 e-Cigarette/Vaping Use: Never Used service: No Current occupational status: employed Cognitive needs: No Hearing needs: No Vision needs: No Questionnaire PHQ-9 Over the last 2 weeks, how often have you been bothered by any of the following problems? 1. Little interest or pleasure in doing things: not at all 2. Feeling down, depressed, or hopeless: not at all 3. Trouble falling or staying asleep, or sleeping too much: not at all 4. Feeling tired or having little energy: not at all 5. Poor appetite or overeating: not at all 6. Feeling bad about yourself - or that you are a failure or have let yourself or your family down: not at all 7. Trouble concentrating on things, such as reading the newspaper or watching television: not at all 8. Moving or speaking so slowly that other people could have noticed. Or the opposite - being so fidgety or restless that you have been moving around a lot more than usual: not at all 9. Thoughts that you would be better off or of hurting yourself in some way: not at all Total score: 0 Depression Screening Interpretation: Negative (feels ill due to current GI problems) Depression Screening Done: Yes 08779 - PHQ-9 Billing: Yes Source: Developed by Drs. Greg Hernandez, Whitley Park, Dustin Ann and colleagues, with an educational hans from [employer]. Thrive Questionnaire Date Thrive assessed: 06/25/23 I am a: Patient What is your living situation today?: I have a steady place to live Within the past 12 months, did the food you bought not last and you didn't have the money to get more?: Never true Within the past 12 months, did you worry whether your food would run out before you got money to buy more?: Never true Do you have trouble paying for medicines?: No Do you have trouble getting transportation to medical appointments?: No Do you have trouble paying your heating and electricity bill?: No Do you have trouble taking care of your child, family member or friend?: No Do you have trouble with day-to-day activities such as bathing, preparing meals, shopping, managing finances, etc.?: No Are you currently unemployed and looking for a job?: No Are you interested in more education?: Yes Please select the resources that you would like help with: Education AUDIT C Alcohol Use Questionnaire (AUDIT-C) 1. How often do you have a drink containing alcohol?: Never Total Score: 0 KAMILA-7 AMB Questionnaire KAMILA-7 Date KAMILA - 7 assessed: 11/27/21 Source: Developed by Drs. Greg Hernandez, Whitley Park, Dustin Ann and colleagues, with an educational hans from [employer]. Review of Systems Const Denies fatigue, Denies fever(s), Reports poor appetite and Reports weight gain Eyes Details: Complains of recurrent itchy eye, with tearing ENT Denies dysphagia, Denies mouth pain, Denies odynophagia, Denies throat swelling and Denies tongue swelling Card Reports no additional complaints Resp Reports no additional complaints GI Denies melena, Denies bloating, Denies hematochezia, Denies constipation, Denies dysphagia, Denies excessive flatus, Denies early satiety, Reports heartburn, Denies diarrhea and Denies odynophagia Reports no additional complaints Musc Reports no additional complaints Skin/Breast Denies pruritus, Denies lesions, Denies rash and Denies jaundice Neuro Reports no additional complaints Psych Reports change in appetite and Reports mood swings Endo Denies fatigue Yared/Lymph Reports no additional complaints Aller/Immun Denies throat swelling and Denies tongue swelling Physical exam (Primary Care) Vital Signs: Last Vital Signs Pulse 74 06/25/23 11:38 BP 120/70 06/25/23 11:38 Pulse Ox 97 06/25/23 11:38 Oxygen Delivery Method Room Air 06/25/23 11:38 BMI result Body Mass Index 22.5 Tobacco/Smoking Status: Tobacco use Status Tobacco use date assessed 06/25/23 06/25/23 11:40 Patient Tobacco Use Status Current everyday Tobacco 06/25/23 11:40 Tobacco use type Cigarette,Cigar 06/25/23 11:40 e-Cigarette/Vaping Use Never Used 06/25/23 11:40 PHQ-9: PHQ-9 Score PHQ-9: Total score 0 08/28/23 03:32 Depression Screening Interpretation: Negative (feels ill due to current GI problems) Thrive Assessment: Date of Thrive Assessment Date Thrive assessed 06/25/23 06/25/23 12:13 Const General: comfortable and no acute distress Orientation/consciousness: patient oriented x3 [facility] General nose exam: Normal external nose present Face and sinus: Yes sinuses nontender and Yes face symmetric Eyes General: appearance normal, both eyes and all related structures Periorbital: periorbital findings normal Eyelids: Yes eyelids normal Conjunctivae: conjunctivae normal Sclerae: sclerae normal Pupils: Equal, round and reactive pupils present EOM: EOMs intact bilaterally Neck Neck: Yes full ROM, Yes no lymphadenopathy and Yes supple Resp Auscultation: clear to auscultation bilaterally Cardio Rate: regular rate Rhythm: regular rhythm Heart sounds: S1 normal heart sound present and S2 normal heart sound present GI Palpation (GI): Soft to palpation, nontender, no guarding and no masses Auscultation: normal bowel sounds General: Yes no CVA tenderness Male General Exam: Yes normal external exam Back/Spine/Pelvis Back: no CVA tenderness and No back tenderness Skin General skin exam: no rashes or lesions noted Neuro General: patient oriented x3, gait normal, tone normal, moves all extremities, Normal light touch and pain sensation, no focal motor deficits and CN's II-XI intact bilaterally Cranial nerves: Yes Equal, round and reactive pupils present Extrem General: Yes full ROM, Yes no joint enlargement, Yes no clubbing, cyanosis or edema, Yes no calf tenderness and Yes normal gait Psych Appearance: grossly normal and well kempt Mental Status: mental status grossly normal Speech and movement: Normal speech and movement present Affect: normal affect Attitude: cooperative Thought process: Normal thought process present Thought content: Normal thought content present Results Reviewed Results Reviewed: SPEC : [id number] STEVE: 12/21/22 STATUS: COMP REQ : [id number] RECD: 12/21/22 [facility] DR: Sanjuana Fung COMP: 12/21/22 ENTERED: 12/21/[address] [facility] [address]: Ngoc Fung MD ORDERED: CBC Auto Diff Test Result Flag Reference Site WBC 10.4 4.8-10.8 X10*3/uL RBC 4.86 4.60-5.80 X10*6/uL HGB 15.1 14.0-18.0 g/dl HCT 45.3 42.0-52.0 % MCV 93.2 80.0-98.0 fL MCH 31.1 27.0-33.0 pg MCHC 33.3 31.0-36.0 g/dl RDW 14.2 11.0-16.0 % PLT 276 160-400 X10*3/uL MPV 8.7 L 9.4-12.4 fL Neut Pct Auto 66.8 45-73 % ImGran Pct Auto 0.4 0.0-0.4 % Lymp Pct Auto 24.0 20-40 % [place] Pct Auto 8.3 2-11 % Eos Pct Auto 0.1 0-4 % Baso Pct Auto 0.4 0-2 % NRBC Pct Auto 0.0 0.0-0.2 /100WBC ANC Neut Abs # 7.0 2.0-8.3 x10*3/uL ImGran Abs Auto 0.04 H 0.00-0.03 X10*3/uL Lymph Abs Auto 2.5 1.2-4.9 X10*3/uL [place] Abs Auto 0.9 0.1-1.2 X10*3/uL Eos Abs Auto 0.0 0.0-0.4 X10*3/uL Baso Abs Auto 0.0 0.0-0.2 X10*3/uL NRBC Abs Auto 0.000 0.0-0.012 X10*3/uL Name: Seth Whelan Age/Sex: 47/M : 1975 Unit#: [id number] Attend Dr: Shamar Gardnuo MD Re02/28/23 Status: DEP REF Location: [id number] Disch: SPEC : [id number] STEVE: 02/28/23 STATUS: COMP REQ : [id number] RECD: 02/28/23-[address]: Shamar Garduno MD COMP: 02/28/23-1148 ENTERED: 02/28/23-[address]: Ngoc Fung MD ORDERED: CMP, CK Total, Lipid with Rfx Test Result Flag Reference Site Sodium 139 135-145 mmol/L Potassium 4.4 3.3-5.1 mmol/L CL 107 96-108 mmol/L CO2 27 22-29 mmol/L Gap 9 L 12-20 BUN 8 L 9-16 mg/dL Creat 0.73 0.5-1.4 mg/dL EGFR > 60 NOTE: For -Mexican individuals, multiply the result by 1.210. Chronic Kidney Disease: Estimated GFR < 60 mL/min/1.73m2 Severe Kidney Disease: Estimated GFR < 15 mL/min/1.73m2 Glucose, Random 110 60-115 mg/dL CA 9.4 8.4-10.2 mg/dL Total Bili 0.3 0.0-1.0 mg/dL AST (GOT) 20 5-37 U/L ALT (GPT) 26 0-40 U/L CK Total 51 38-174 U/L Protein, Total 6.9 6.5-8.0 g/dL Alb 3.7 3.5-5.0 g/dL Triglyceride 69 mg/dL Desirable Triglyceride: less than 150 mg/dL Borderline High Triglyceride 150-199 mg/dL High Triglyceride: 200-499 mg/dL Very High Triglyceride: greater than or equal to 5OO mg/dL Chol 181 mg/dL Desirable Cholesterol: less than 200 mg/dL Borderline High Cholesterol: 200-239 mg/dL High Cholesterol: greater than 239 mg/dL LDL Calculated 130 mg/dl Desirable LDL: less than 100 mg/dL Near Optimal/Above Optimal LDL: 110-129 mg/dL Borderline High LDL: 130-159 mg/dL High LDL: 160-189 mg/dL Very High LDL: greater than or equal to 190 mg/dL HDL 38 mg/dL Desirable HDL: greater than 40 mg/dL Note: This HDL assay may give artificially low results in patients with liver disease. Alk Phos 73 39-117 U/L Assessment and Plan Assessment & Plan (1) Annual visit for general adult medical examination with abnormal findings: Code(s): Z00.01 - Encounter for general adult medical examination with abnormal findings Plan: Recent labs reviewed. Patient advised to get regular dental visit every 6 months and regular eye exams, at least every 2 years. He has been advised to follow a low-cholesterol diet and strongly advised to stop smoking. He is up-to-date with his screening colonoscopy done July [address] Garduno. Refuses to get any vaccinations at present time (2) Chronic vascular insufficiency of intestine: Code(s): K55.1 - Chronic vascular disorders of intestine Plan: Followed by vascular surgery at [facility], currently on a aspirin 81 mg daily plus clopidogrel 75 mg daily. Stressed importance of stopping smoking, and importance of getting cholesterol levels and blood pressure and blood sugar under control. Continued on rosuvastatin 20 mg daily (3) Allergic conjunctivitis: Code(s): H10.10 - Acute atopic conjunctivitis, unspecified eye Qualifiers: Laterality: bilateral Qualified Code(s): H10.13 - Acute atopic conjunctivitis, bilateral Plan: Advised to use [id number] ketotifen eyedrops, to use as directed. Return to clinic if no improvement of symptoms after her using it for 3 days (4) Cigar smoker unmotivated to quit: Code(s): F17.290 - Nicotine dependence, other tobacco product, uncomplicated Plan: Patient strongly advised to stop smoking, as smoking damages blood vessels, degenerative of joints and spine, damage to lungs and heart., predisposes to developing certain cancers like lung, breast, bladder, colon. Recommended to try decreasing cigarette use by 1-2 cigarettes a day. Advised to monitor what triggers are for smoking so that this can be discussed on the next office visit. We can discuss different options to quit smoking when ready. (5) Vaccine refused by patient: Code(s): Z28.20 - Immunization not carried out because of patient decision for unspecified reason (6) IBD (inflammatory bowel disease): Code(s): K52.9 - Noninfective gastroenteritis and colitis, unspecified Plan: Currently on mesalamine ER 1 5 g p.o. q.a.m., followed by GI clinic Plan Followed by vascular surgery at [facility], currently on a aspirin 81 mg daily plus clopidogrel 75 mg daily. Review Flu Vaccine not done: patient reason (Patient refusing vaccination) Coding Level of Care Code Est Pt Prev Care 40-64y(85736) Diagnoses Annual visit for general adult medical examination with abnormal findings Z00.01 Chronic vascular insufficiency of intestine K55.1 Allergic conjunctivitis of both eyes H10.13 Laterality: bilateral Cigar smoker unmotivated to quit F17.290 Vaccine refused by patient Z28.20 IBD (inflammatory bowel disease) K52.9
== END 2023-06-25 12:11 | disposition home or self-care (01) ==
PROVIDERS: Visit Provider Internal Medicine
DX: Z00.00 Encounter for general adult medical examination without abnormal findings (principal); K55.1 Chronic vascular disorders of intestine; H10.13 Acute atopic conjunctivitis, bilateral; F17.290 Nicotine dependence, other tobacco product, uncomplicated; Z28.20 Immunization not carried out because of patient decision for unspecified reason; K52.9 Noninfective gastroenteritis and colitis, unspecified
CPT/HCPCS: 99396

== ENCOUNTER 2023-07-20 10:45 | Emergency (ER) | payer OTHER, SELFPAY ==
--- NOTE | ~2023-07-20 | CT_ITS ---
EXAMINATION: CTA of the chest, abdomen and pelvis with IV contrast CLINICAL INFORMATION: Chest pain and abdominal pain. Vomiting. Rule out dissection. History of mesenteric ischemia. COMPARISON: Previous CTA of the abdomen and pelvis most recent December 2022 TECHNIQUE: Axial images through the chest, abdomen and pelvis following 99 mL Omnipaque 350 IV contrast. Sagittal and coronal instructions on the technologist workstation were performed. This CT examination was performed using dose optimization techniques as appropriate, variously including the following: *Automated exposure control *Adjustment of mA and/or kV according to patient size (this includes techniques or standardized protocols for targeted exams where dose is matched to indication/reason for exam; i.e. extremities or head) *Use of iterative reconstruction technique DLP 4 2 8 mgy/cm FINDINGS: Vascular: The thoracic aorta is normal in caliber. No aneurysm or dissection. Great vessel origins are normal in caliber and patent. Central pulmonary arteries are patent. The heart is upper normal in size. The abdominal aorta is normal in caliber. No aneurysm or dissection is seen. Severe stenosis of the celiac axis origin. This is similar to previous exam. Hepatic and splenic arteries are patent distal to the stenosis. There is a stent seen in the proximal SMA. The proximal SMA and stent are occluded. There is reconstitution of the SMA distal to the stent which is patent. There is a severe stenosis at the SOLOMON origin. The more distal SOLOMON is patent. There is mild atherosclerotic disease of the distal abdominal aorta, distal left common iliac and proximal left internal iliac arteries. Moderate stenosis of the proximal left internal iliac artery. Iliac vessels are otherwise patent. The common femoral arteries are patent. Bilateral femoral bifurcations are patent. CHEST: There is evidence of emphysema. 3 mm left apical nodule axial image 90 series 9. This is new from previous exam. Normal thyroid gland. No enlarged hilar or mediastinal lymph nodes. Upper normal heart size. No pericardial no coronary artery calcification. No pleural effusion or pleural thickening. No chest wall mass or enlarged axillary Abdomen and pelvis: Normal-appearing liver, gallbladder, spleen, pancreas, adrenal glands and kidneys. The bladder and prostate gland. Normal small and large bowel. No bowel wall thickening, dilatation or pneumatosis. Normal appendix. Normal stomach. No ascites. No hernia. No enlarged lymph nodes. Review at bone windows is unremarkable. CT/CT angio abdomen pelvis IMPRESSION: Occluded SMA stent. Celiac axis and SOLOMON origin severe stenoses similar to December 2022 exam. Atherosclerotic disease of the distal abdominal aorta, distal left common iliac and proximal left internal iliac arteries. Normal caliber thoracic aorta. Upper normal heart size. Emphysema. New 3 mm left upper lobe nodule. According to the UPDATED 2017 Fleischner Society recommendations, the advised follow-up imaging for less than 6 mm solid nodule: Low risk, no chest CT follow-up and high risk, optional chest CT follow-up in one year. Findings will be communicated by the [facility] sales communications manager
[2023-07-20 10:53] VITALS: BP 154/81; PULSE 71; RESP 18; TEMP 37.6; O2SAT 100; BMI 21.3
--- NOTE | 2023-07-20 11:05 | ED_ITS ---
HPI - Abdominal Pain General Chief Complaint: Abdominal Pain Stated Complaint: Vomiting Time Seen by Provider: 07/20/23 11:00 Source: patient Mode of arrival: ambulatory Limitations: no limitations History of Present Illness HPI narrative: patient is a 48-year-old male who presents emergency department for evaluation of substernal chest pain, epigastric pain, and left upper quadrant abdominal pain with onset yesterday. pain progressively worsened and awoken from his sleep, then he began vomiting copious amounts of clear emesis. Upon arrival to the emergency department he vomited 500 mL of clear emesis. He reports his current symptoms to feel consistent with prior mesenteric ischemia, significant other is present at bedside and she reports stenting earlier this year at [facility], unable to provide specific details Related Data Home Medications Medication Instructions Recorded Confirmed sucralfate 1 gram tablet 1 tab PO BEDTIME 06/02/22 07/23/22 clopidogrel 75 mg tablet 75 mg PO DAILY 12/16/22 Previous Rx's Medication Instructions Recorded diclofenac sodium 1 % topical gel 2 g topical QID PRN elbow pain 11/29/21 #100 grams ketotifen fumarate 0.025 % (0.035 1 drp ophthalmic (eye) BID #5 mL 03/01/22 %) eye drops (Allergy Eye (ketotifen)) aluminum-mag hydroxide-simethicone 5 ml PO 5XD PRN dyspepsia #355 mL 10/29/22 200 mg-200 mg-20 mg/5 mL oral susp (Maalox Advanced) aspirin 81 mg capsule 81 mg PO DAILY #30 caps 10/29/22 mesalamine 0.375 gram 1.5 g (4 x 0.375 gram) PO QAM #120 11/20/22 capsule,extended release 24 hr caps (Apriso) rosuvastatin 20 mg tablet (Crestor) 20 mg PO DAILY #90 tabs 03/01/23 Allergies Allergy/AdvReac Type Severity Reaction Status Date / Time No Known Allergies Allergy Verified 07/20/23 10:53 Review of Systems Review of Systems Yes all other systems are reviewed and are negative PMFSH Past Medical History Attestation statement: The following information was validated with the patient. Source: old records reviewed Medical History Vaccine refused by patient Cigar smoker unmotivated to quit Chronic vascular insufficiency of intestine Impaired fasting glucose Normocytic normochromic anemia Diarrhea Granular cell tumor Chronic GERD Surgical History H/O heart artery stent Hx of colonoscopy No pertinent past surgical history Family History Family History Maternal Aunt No problems noted. Maternal Aunt No problems noted. Social History Social History Household Members: Spouse Housing: Apartment Do you presently have visiting nurse or other home services: No Patient Tobacco Use Status: Current everyday Tobacco user Tobacco use type: Cigarette and Cigar Cigarettes Per Day: 2 Years Smoked: 3 Smoked in Last 30 Days: No e-Cigarette/Vaping Use: Never Used Use of substances other than those prescribed or required for medical reasons: No Advance Directives: No Advance Directives Information Provided: Yes service: No Current occupational status: employed Cognitive needs: No Hearing needs: No Vision needs: No Physical Exam ED Vital Signs: Vital Signs - 24 hr 07/20/23 10:53 07/20/23 12:43 07/20/23 13:51 Temperature 99.7 F 98.8 F Pulse Rate 71 63 71 Respiratory Rate 18 18 20 Blood Pressure 154/81 H 140/62 H 140/76 H Pulse Oximetry 100 98 99 Oxygen Delivery Method Room Air Room Air Room Air BMI result Body Mass Index 21.3 Appearance: Alert.?Oriented to person, place and time. No acute distress.?Normal affect. Eyes: Pupils equal, round and reactive to light.? ENT: Pharynx normal.?? Neck: Normal inspection.? Neck supple.?? CVS: Heart sounds normal. Normal heart rate and rhythm.? Pulses normal.?? Respiratory: No respiratory distress.? Lung sounds clear to auscultation bilaterally?? Abdomen: Soft diffuse tenderness upon palpation predominantly over the epigastrium and left upper quadrant. No rigidity. No guarding. No rebound tenderness. Negative Flores sign. No CVA tenderness.. Normoactive bowel sounds. No pulsatile mass.?? Skin: Skin warm and dry.? Normal skin color.? Normal skin turgor.?? Extremities: No lower extremity edema.? No calf ttp? Neuro: Moves all extremities spontaneously. Sensation intact bilaterally. CN II- XII intact. No focal neuro deficits. Ambulates with normal steady gait. Course Reevaluation(s) Reevaluation #1: CBC revealed leukocytosis of 14.9 this with left shift, no anemia. BMP overall unremarkable, lactic acidosis of 2.5, elevated total bili, CRP 5.71. High sensitive troponin nondetectable, EKG revealing normal sinus rhythm without acute ischemic findings, reviewed CTA results, occluded SMA stent, celiac axis and SOLOMON origins severe stenosis consistent with similar findings in December 2022. consulted vascular, Dr. Ortiz; patient started on heparin drip at 12 units/kg per hour in addition to bolus, contacted [facility] and was [facility] transfer center, he has been accepted for transfer to the ED with the accepting physician Dr. Brooks. patient updated on findings. Vital stable at this time. No further vomiting. Pain is present but did improve with morphine. 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 At the time of initial examination he appears uncomfortable, has vomited a approximately 500 mL of clear emesis. denies constipation diarrhea hematochezia or melena. Based on past medical history concern for stenting complication the clot verses pancreatitis versus colitis versus obstruction versus cholecystitis versus atypical ACS. Lower abdomen without significant tenderness and no CVA tenderness, clinically lower suspicion for diverticulitis/ appendicitis /pyelonephritis. Will obtain CBC to evaluate for leukocytosis/ anemia, CMP and lipase to evaluate for abnormal electrolytes /abnormal renal function/ abnormal hepatic/biliary function, EKG and troponin to evaluate for ischemia/ACS. CT angio chest, abdomen, and pelvis. patient received 1 L normal saline IV fluid, Zofran IV, morphine IV Differential Diagnosis Differential Diagnoses: The differential diagnosis associated with the presentation includes ( as noted above) Admission/Observation Consideration of admission/observation: Escalation of care including admission/observation considered ( see course narrative for further detail) transfer to [facility] in [place] Consult Healthcare Provider Management of the patient was discussed with: Grain Weigher ( as per course narrative) Lab Data [facility] Lab Attestation statement: I reviewed the patient's lab results. ( see course narrative for further detail) 07/20/23 11:15 07/20/23 11:15 Labs: Lab Results 07/20/23 07/20/23 07/20/23 Range/Units 11:15 13:26 14:03 WBC 14.9 H (4.8-10.8) X10*3/uL RBC 5.39 (4.60-5.80) X10*6/uL Hgb 16.4 (14.0-18.0) g/dl Hct 48.5 (42.0-52.0) % MCV 90.0 (80.0-98.0) fL MCH 30.4 (27.0-33.0) pg MCHC 33.8 (31.0-36.0) g/dl RDW 14.6 (11.0-16.0) % Plt Count 287 (160-400) X10*3/uL MPV 9.4 (9.4-12.4) fL Immature Gran % (Auto) 0.5 H (0.0-0.4) % Neut % (Auto) 77.1 H (45-73) % Lymph % (Auto) 11.3 L (20-40) % [place] % (Auto) 10.9 (2-11) % Eos % (Auto) 0.0 (0-4) % Baso % (Auto) 0.2 (0-2) % Lymph # (Auto) 1.7 (1.2-4.9) X10*3/uL [place] # (Auto) 1.6 H (0.1-1.2) X10*3/uL Eos # (Auto) 0.0 (0.0-0.4) X10*3/uL Baso # (Auto) 0.0 (0.0-0.2) X10*3/uL Abs Immat Gran (auto) 0.07 H (0.00-0.03) X10*3/uL Absolute Neuts (auto) 11.5 H (2.0-8.3) x10*3/uL Absolute Nucleated RBC 0.000 (0.0-0.012) X10*3/uL Nucleated RBC % (auto) 0.0 (0.0-0.2) /100WBC Smear Tech's Comments VERIFIED ESR 12 (0-15) MM/HR PT 13.0 (11.1-13.3) SEC INR 1.1 (0.9-1.1) aPTT Heparin Protocol 28.3 L (53-77.9) SEC Sodium 140 (135-145) mmol/L Potassium 3.9 (3.3-5.1) mmol/L Chloride 100 (96-108) mmol/L Carbon Dioxide 25 (22-29) mmol/L Anion Gap 19 (12-20) BUN 15 (9-16) mg/dL Creatinine 0.95 (0.5-1.4) mg/dL Estim Creat Clear Calc 96.0 Estimated GFR > 60 Random Glucose 172 H (60-115) mg/dL Lactic Acid 2.5 H* (0.5-2.0) mmol/L Lactic Acid F/U @ 2Hr 1.2 (0.5-2.0) mmol/L Calcium 10.1 D (8.4-10.2) mg/dL Total Bilirubin 2.1 H (0.0-1.0) mg/dL Direct Bilirubin 0.5 (0.0-0.5) mg/dL AST 21 (5-37) U/L ALT 14 (0-40) U/L Alkaline Phosphatase 78 (39-117) U/L Troponin I High Sens < 2.7 (<3.5-35.0) ng/L C-Reactive Protein 5.71 H (< or = 0.50) mg/dL Total Protein 8.7 H (6.5-8.0) g/dL Albumin 4.7 (3.5-5.0) g/dL Lipase 75 (8-78) U/L Independent Interpretation I performed an independent interpretation of an: EKG and CT Scan Interpretation: Rate: 64 Rhythm:? normal sinus rhythm [place]:? normal Normal P waves.? Normal ANUSHA.?? Normal QRS complex.?? ST T wave :?? no ST elevation, no ST depression, qTC: 383 prior studies:? December 2022 The study has been interpreted contemporaneously by me. Radiology Impression Discussion of test interpretation with radiology: I have reviewed the radiologist's reading. Radiologist Impression: CT/CT angio abdomen pelvis IMPRESSION: Occluded SMA stent. Celiac axis and SOLOMON origin severe stenoses similar to December 2022 exam. Atherosclerotic disease of the distal abdominal aorta, distal left common iliac and proximal left internal iliac arteries. Normal caliber thoracic aorta. Upper normal heart size. Emphysema. New 3 mm left upper lobe nodule. According to the UPDATED 2017 Fleischner Society recommendations, the advised follow-up imaging for less than 6 mm solid nodule: Low risk, no chest CT follow-up and high risk, optional chest CT follow-up in one year. Independent Historian Clinical information obtained from an independent historian. History obtained from or confirmed by: Spouse ( present at bedside who confirms history) External Record Review External record reviewed: Office record and Outpatient record Medications Administered Discontinued Medications Generic Name Dose Route Start Last Admin Trade Name Freq PRN Reason Stop Dose Admin Heparin Sodium (Porcine) 4,000 unit 07/20/23 13:51 07/20/23 14:19 Heparin Sodium,Porcine 5,000 Unit/Ml Vial IVPUSH 07/20/23 13:52 4,000 unit ONCE ONE Administration Sodium Chloride 1,000 mls @ 999 mls/hr 07/20/23 11:15 07/20/23 12:41 Ns IV 07/20/23 12:15 Infused .Q1H1M LATOSHA Infusion Heparin Sodium/Sodium Chloride 25,000 unit in 250 mls @ 0 mls/hr 07/20/23 14:00 07/20/23 14:30 Heparin Sodium,Porcine/1/2ns IVCONT 12 units/kg/hr .Q0M LATOSHA 8.57 mls/hr Administration Protocol Per Protocol Iohexol 99 ml 07/20/23 12:03 07/20/23 12:03 Iohexol 350 Mg/Ml 100 Ml Infus..Btl IV 07/20/23 12:04 99 ml ONCE ONE Administration Morphine Sulfate 4 mg 07/20/23 11:11 07/20/23 11:22 Morphine Sulfate 4 Mg/Ml Cartridge IVPUSH 07/20/23 11:12 4 mg ONCE ONE Administration Protocol Ondansetron HCl 4 mg 07/20/23 11:11 07/20/23 11:21 Ondansetron Hcl 4 Mg/2 Ml Vial IVPUSH 07/20/23 11:12 4 mg ONCE ONE Administration Critical Care Time Critical Care Time Critical Care Time: Yes Total Critical Care Time: 45 Attestation: I personally attest to this critical care time spent taking care of the patient exclusive of all other billable procedures was approximately 45 minutes including initial evaluation of patient, ordering tests, x-ray interpretation, EKG interpretation, medical consultation, documentation, re-evaluation. Discharge Plan Discharge Clinical Impression: Occlusion of superior mesenteric artery Patient Disposition: [facility] Transfer Details: [facility] Prescriptions: No Action mesalamine [Apriso] 0.375 gram capsule,extended release 24hr 1.5 g PO QAM Qty: 120 2RF rosuvastatin [Crestor] 20 mg tablet 20 mg PO DAILY Qty: 90 3RF alum-mag hydroxide-simeth [Maalox Advanced] 200-200-20 mg/5 mL suspension 5 ml PO 5XD PRN (Reason: dyspepsia) Qty: 355 0RF Rx Instructions: administer between meals and at bedtime aspirin 81 mg capsule 81 mg PO DAILY Qty: 30 0RF sucralfate 1 gram tablet 1 tab PO BEDTIME diclofenac sodium 1 % gel 2 g topical QID PRN (Reason: elbow pain ) Qty: 100 0RF Rx Instructions: apply to single elbow, wrist or hand; for hand includes palm/fingers/back of hand ketotifen fumarate [Allergy Eye (ketotifen)] 0.025 % (0.035 %) drops 1 drp ophthalmic (eye) BID Qty: 5 6RF Rx Instructions: administer at least 8 hours apart clopidogrel 75 mg tablet 75 mg PO DAILY Interventions: Acute Care Transfer Worksheet (ED) Last Done: 07/20/23 15:18 Discharge Date/Time: 07/20/23 15:19
[2023-07-20] MEDS: 0.9 % Sodium Chloride 1,000 ML 999 ML IV (11:19)
--- NOTE | 2023-07-20 11:20 | ECG_ITS ---
Test Reason : CP Blood Pressure : / mmHG Vent. Rate : 064 BPM Atrial Rate : 064 BPM P-R Int : 124 ms QRS Dur : 100 ms QT Int : 372 ms P-R-T Axes : 061 024 -20 degrees QTc Int : 383 ms Normal sinus rhythm Low voltage QRS Nonspecific T wave abnormality Inferior leads Abnormal ECG When compared with ECG of 21-DEC-2022 14:23, T wave amplitude has decreased in Anterior leads Referred By: Smita Cisneros Electronically Signed By:IVÁN OAKES MD
[2023-07-20 11:21] LABS: Basophils Percent Auto 0.2 % (0-2); Hematocrit 48.5 % (42.0-52.0); Hemoglobin 16.4 g/dl (14.0-18.0); Imm Gran Abs Auto 0.07 X10*3/uL (0.00-0.03); Imm Gran Pct Auto 0.5 % (0.0-0.4); Lymphocytes Absolute Auto 1.7 X10*3/uL (1.2-4.9); Lymphocytes Percent Auto 11.3 % (20-40); MANUAL DIFF FLAG SCAN; Mean Corpuscular HGB Conc 33.8 g/dl (31.0-36.0); Mean Corpuscular Hemoglobin 30.4 pg (27.0-33.0); Mean Platelet Volume 9.4 fL (9.4-12.4); Monocytes Absolute Auto 1.6 X10*3/uL (0.1-1.2); Monocytes Percent Auto 10.9 % (2-11); Neutrophils Absolute Auto 11.5 x10*3/uL (2.0-8.3); Neutrophils Percent Auto 77.1 % (45-73); Platelet Count 287 X10*3/uL (160-400); Red Blood Count 5.39 X10*6/uL (4.60-5.80); Red Cell Distribution Width 14.6 % (11.0-16.0); SCAN SMEAR FLAG 1; White Blood Count 14.9 X10*3/uL (4.8-10.8)
[2023-07-20] MEDS: ondansetron HCL 4 MG/2 ML VIAL IVPUSH (11:21)
[2023-07-20] MEDS: Morphine Sulfate 4 MG/ML CARTRIDGE IVPUSH (11:22)
--- NOTE | 2023-07-20 11:25 | PC.NURSE ---
Addendum entered by Nikki Prieto 07/20/23 11:27: add on. nauseous, with 10/10 epigastric and LUQ abd pain since last night. once in room pt vomited 500ccs of clear liquid into emesis bag. IV started and labs drawn. fluids, zofran and morphine given. EKG pending. plan of care ongoing Original Note: pt arrived to ED room 13 from waiting room diaphoretic, pale, and
[2023-07-20 11:40] LABS: Alanine Aminotransferase 14 U/L (0-40); Albumin Level 4.7 g/dL (3.5-5.0); Alkaline Phosphatase 78 U/L (39-117); Anion Gap 19 (12-20); Aspartate Amino Transferase 21 U/L (5-37); Bilirubin Direct 0.5 mg/dL (0.0-0.5); Bilirubin Total 2.1 mg/dL (0.0-1.0); Blood Urea Nitrogen 15 mg/dL (9-16); C Reactive Protein 5.71 mg/dL (< or = 0.50); Calcium 10.1 mg/dL (8.4-10.2); Carbon Dioxide 25 mmol/L (22-29); Chloride 100 mmol/L (96-108); Estimated Glomerular Filt Rate > 60; Glucose Random 172 mg/dL (60-115); Lactic Acid 2.5 mmol/L (0.5-2.0); Lipase 75 U/L (8-78); Potassium 3.9 mmol/L (3.3-5.1); Sodium 140 mmol/L (135-145); Total Protein 8.7 g/dL (6.5-8.0)
[2023-07-20 11:43] LABS: SLIDE REVIEW VERIFIED
[2023-07-20 11:44] LABS: Troponin-I High Sensitivity < 2.7 ng/L (<3.5-35.0)
[2023-07-20 12:00] LABS: Erythrocyte Sedimentation Rate 12 MM/HR (0-15)
[2023-07-20] MEDS: iohexoL 350 MG/ML 100 ML INFUS..BTL 99 ML IV (12:03)
[2023-07-20 12:43] VITALS: BP 140/62; PULSE 63; RESP 18; O2SAT 98
--- NOTE | 2023-07-20 12:45 | PC.NURSE ---
pt vitals stable, still reporting pain in luq area and epigastric 04/24. pt states i think this is the same this that I had before
[2023-07-20 13:18] LABS: Reflex Lactate? Lactic Acid Added
--- NOTE | 2023-07-20 13:37 | PC.NURSE ---
pt sleeping at this time. pt has been requesting food and drin, per Gage ESPARZA pt is NPO for now pending consult over CT scan results which show occluded stent.
[2023-07-20 13:41] LABS: ~Lactic Acid-LAB USE ONLY 1.2 mmol/L (0.5-2.0)
[2023-07-20 13:51] VITALS: BP 140/76; PULSE 71; RESP 20; TEMP 37.1; O2SAT 99
[2023-07-20] MEDS: Heparin Sodium,Porcine 5,000 UNIT/ML VIAL 4000 UNIT IVPUSH (14:19)
[2023-07-20 14:21] LABS: INTERNATIONAL NORM RATIO 1.1 (0.9-1.1)
[2023-07-20 14:24] LABS: PTT Heparin Drip 28.3 SEC (53-77.9)
[2023-07-20] MEDS: Heparin Sodium,Porcine/1/2NS 25,000 UNIT/250 ML IV.SOLN 8.57 UNIT IVCONT (14:30)
== END 2023-07-20 15:19 | disposition short-term general hospital (02) ==
PROVIDERS: Nurse Practitioner Family; Emergency Provider Emergency Medicine; PCP Internal Medicine
DX: K55.069 Acute infarction of intestine, part and extent unspecified (principal); R10.13 Epigastric pain; R10.12 Left upper quadrant pain; R07.9 Chest pain, unspecified; R11.10 Vomiting, unspecified; D64.9 Anemia, unspecified; K21.9 Gastro-esophageal reflux disease without esophagitis; R91.1 Solitary pulmonary nodule; J43.9 Emphysema, unspecified; Z79.899 Other long term (current) drug therapy
CPT/HCPCS: 36415; 71275; 74174; 80048; 80076; 83605; 83690; 84484; 85025; 85610; 85652; 85730; 86140; 93005; 96361; 96374; 96375; 99285; J1643; J2270; J2405; Q9967

== ENCOUNTER 2023-09-01 11:48 | Emergency (ER) | payer OTHER, SELFPAY ==
[2023-09-01] VITALS (16 sets, daily range): BP systolic 112–147; BP diastolic 69–84; PULSE 73–98; RESP 12–20; TEMP 36.4–37.2; O2SAT 100; BMI 19.9
--- NOTE | ~2023-09-01 | CT_ITS ---
EXAMINATION: CT ANGIOGRAM ABDOMEN AND PELVIS CLINICAL INFORMATION: Drop in hemoglobin with history of mesenteric vascular disease COMPARISON: CT angiogram of the chest abdomen pelvis 07/20/2023 TECHNIQUE: Multiple axial images were obtained through the abdomen and pelvis following the administration of 85 mL of Omnipaque 350 intravenous contrast. Images were not reviewed on a dedicated 3-D workstation. Additional 2-D coronal and sagittal reformatted images and axial 3-D maximum intensity projection MIP images are generated on the CT workstation. This CT examination was performed using dose optimization techniques as appropriate, variously including the following: *Automated exposure control *Adjustment of mA and/or kV according to patient size (this includes techniques or standardized protocols for targeted exams where dose is matched to indication/reason for exam; i.e. extremities or head) *Use of iterative reconstruction technique DLP: 319 mGy-cm VASCULAR FINDINGS: The abdominal aorta and visualized iliofemoral vessels demonstrate atherosclerotic change with predominantly noncalcified plaque. No stenoses, aneurysms or dissections are seen. Again seen is a severe celiac stenosis/occlusion with distal vasculature filling through inferior pancreaticoduodenal artery. The SMA is stented and the stent is widely patent. At the time of the prior 07/20/2023 study the stent was occluded and has been extended proximally protruding a bit further into the aorta. A tight stenosis is again seen at the SOLOMON origin Single renal arteries are present bilaterally which are widely patent. Venous structures such as the IVC, hepatic veins or portal venous system are not opacified and this exam was ordered as a CT angiogram. No arterial extravasation or intra-abdominal/pelvic hemorrhage is seen to account for the patient's dropping hematocrit. NONVASCULAR FINDINGS: LUNG BASES: The visualized lung bases are unremarkable. LIVER, GALLBLADDER, AND BILIARY TREE: The liver is normal in size, shape, and attenuation. No focal hepatic lesion or biliary ductal dilatation is present. The gallbladder is unremarkable with no evidence of radiopaque gallstones, gallbladder wall thickening, or obvious pericholecystic inflammatory changes. PANCREAS: Unremarkable. SPLEEN: Unremarkable. ADRENAL GLANDS: Unremarkable. KIDNEYS AND URETERS: The kidneys are normal in size, shape, and attenuation. No hydronephrosis, hydroureter, or calculi seen. No perinephric stranding. BLADDER: Unremarkable. GASTROINTESTINAL TRACT: There appears to have been interval surgery since the prior study of 07/20/2023 with a suture line in the right abdomen consistent with the partial right hemicolectomy. The appendix is no longer present. A tiny amount of blood may be seen around the surgical site. A large hematoma is not present there may be a small fluid collection seen but without oral contrast, this is difficult to assess (18:50). The small and large bowel are otherwise unremarkable. ABDOMINAL WALL: No significant hernia is appreciated. Midline anterior abdominal wall incision. LYMPH NODES: No retroperitoneal lymphadenopathy PELVIC VISCERA: Mild BPH. OSSEOUS STRUCTURES: Unremarkable. CT/CT angio abdomen pelvis IMPRESSION: 1. No evidence of active arterial extravasation or intra-abdominal/pelvic hemorrhage to account for the patient's dropping hematocrit. 2. Interval right hemicolectomy with suture line in the right abdomen. A tiny amount of blood may be seen around the surgical site. A large hematoma is not present. There may be a small fluid collection seen but without oral contrast, this is difficult to assess. 3. Previously occluded SMA stent. The SMA stent has been extended and the SMA is now widely patent stent. 4. Severe celiac stenosis/occlusion with distal vasculature filling through the inferior pancreaticoduodenal artery. 5. Tight SOLOMON stenosis. 6. Other incidental findings as described above. Fleischner guidelines were followed.
--- NOTE | 2023-09-01 11:58 | ED.GENADULT ---
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 I believe this was 1st identified in September of 2022. He had stenting of his SMA in September 2022 followed by balloon angioplasty. In early July,July 20, he came to the emergency room here for abdominal pain, nausea, and vomiting. He had a CT that showed mesenteric ischemia with involvement of the SMA stent, the celiac axis and the inferior mesenteric artery. He was started on heparin drip and transfer to [facility] where he had a thrombectomy of the SMA as well as other procedures. He ultimately ended up having an exploratory laparotomy because of necrotic colon. He had a partial colectomy with anastomosis. He was ultimately discharged from [facility] in mid July urine to [facility] on August 12 was found to have a hemoglobin of 5.4. He was hospitalized again from August 12 through August 20. At that time he had a CT that was negative for any active bleeding. He again had a CT angiogram that showed no evidence of retroperitoneal bleed or active extravasation. He was transfused. He had upper and lower endoscopy on August 15. 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 There was also an ulceration at the site of the intestinal anastomosis. These findings were reviewed with surgery who made no recommendations. Vascular surgery ultimately recommended resumption of anticoagulation and he was discharged on apixaban and a baby aspirin daily. The patient was discharged on August 20, 2 weeks ago. He has been home since then. He has had ongoing chronic abdominal pains since then. Yesterday and today he felt dizzy and so came to the emergency room for evaluation. No fever, sweats, chills. He denies any black or bloody stools. No vomiting. He says he is hungry. Related Data Home Medications Medication Instructions Recorded Confirmed sucralfate 1 gram tablet 1 tab PO BEDTIME 06/02/22 07/23/22 clopidogrel 75 mg tablet 75 mg PO DAILY 12/16/22 Previous Rx's Medication Instructions Recorded diclofenac sodium 1 % topical gel 2 g topical QID PRN elbow pain 11/29/21 #100 grams ketotifen fumarate 0.025 % (0.035 1 drp ophthalmic (eye) BID #5 mL 03/01/22 %) eye drops (Allergy Eye (ketotifen)) aluminum-mag hydroxide-simethicone 5 ml PO 5XD PRN dyspepsia #355 mL 10/29/22 200 mg-200 mg-20 mg/5 mL oral susp (Maalox Advanced) aspirin 81 mg capsule 81 mg PO DAILY #30 caps 10/29/22 mesalamine 0.375 gram 1.5 g (4 x 0.375 gram) PO QAM #120 11/20/22 capsule,extended release 24 hr caps (Apriso) rosuvastatin 20 mg tablet (Crestor) 20 mg PO DAILY #90 tabs 03/01/23 Allergies Allergy/AdvReac Type Severity Reaction Status Date / Time No Known Allergies Allergy Verified 08/28/23 03:21 Review of Systems Review of Systems: Yes all other systems are reviewed and are negative [facility] Past Medical History Medical History (Updated 09/01/23 @ 18:24 by Chago Rowe MD) Superior mesenteric artery stenosis Celiac artery stenosis Vaccine refused by patient Cigar smoker unmotivated to quit Chronic vascular insufficiency of intestine Impaired fasting glucose Diarrhea Granular cell tumor Chronic GERD Surgical History (Updated 08/28/23 @ 03:57 by Ngoc Fung MD) Hx of colonoscopy Family History Family History Maternal Aunt No problems noted. Maternal Aunt No problems noted. Social History Social History Household Members: Spouse Housing: Apartment Do you presently have visiting nurse or other home services: No Patient Tobacco Use Status: Current everyday Tobacco user Tobacco use type: Cigarette and Cigar Cigarettes Per Day: 2 Years Smoked: 3 Smoked in Last 30 Days: No e-Cigarette/Vaping Use: Never Used Use of substances other than those prescribed or required for medical reasons: No Advance Directives: No Advance Directives Information Provided: No service: No Current occupational status: employed Cognitive needs: No Hearing needs: No Vision needs: No Physical Exam ED Vital Signs: Vital Signs - 24 hr 09/01/23 11:58 09/01/23 13:11 09/01/23 14:04 Temperature 97.6 F Pulse Rate 98 86 85 Respiratory Rate 20 19 18 Blood Pressure 132/79 122/72 120/73 Pulse Oximetry 100 100 100 Oxygen Delivery Method Room Air Room Air Room Air 09/01/23 16:00 09/01/23 16:17 09/01/23 16:37 Temperature 98 F 98 F 98.8 F Pulse Rate 89 92 88 Respiratory Rate 20 20 14 Blood Pressure 112/84 112/84 112/69 Pulse Oximetry 100 Oxygen Delivery Method Room Air 09/01/23 16:52 09/01/23 16:52 09/01/23 17:52 Temperature 98.8 F 98.6 F Pulse Rate 88 86 Respiratory Rate 15 13 Blood Pressure 121/75 147/77 H Pulse Oximetry Oxygen Delivery Method 09/01/23 17:52 09/01/23 18:24 Temperature 98.4 F Pulse Rate 85 Respiratory Rate 15 Blood Pressure 113/69 Pulse Oximetry 100 Oxygen Delivery Method Room Air BMI result Body Mass Index 19.9 Const Other: Patient looks remarkably well considering everything he has been through. He has the appearance of a fit looking 48-year-old. He does not appear obviously acutely ill. HENMT Other: Mucous membranes are moist. Face is symmetrical. Eyes Other: Pupils are round equal, conjunctivae are clear Neck Other: Neck is supple. No swelling. Resp Other: Lungs are clear bilaterally Cardio Other: Patient has a regular rate and rhythm with no murmur GI Other: The patient has a midline healing surgical scar without signs of complication. He also has smaller scars consistent with previous drain placements. He has diffuse abdominal tenderness but he says his abdomen has been diffusely tender since his surgeries. Other: Rectal exam showed normal tone. No stool in the rectum. No sign of blood or melena. Skin Other: Skin is dry and unremarkable Neuro Other: The patient is awake, alert, pleasant, cooperative. He seems grossly neurologically intact. Course Course Course Narrative: This is an RME: Additional HPI, ROS, PE not included below will be deferred to primary provider. This is a [id number], the history of celiac artery stenosis and multiple surgeries requiring blood transfusions, presenting to the emergency department with complaints of weakness starting this morning. he states that the last blood transfusion was 2 weeks ago at [facility]. Plan: labs, attempt to obtain records from [facility] Medications Administered Discontinued Medications Generic Name Dose Route Start Last Admin Trade Name Freq PRN Reason Stop Dose Admin Sodium Chloride 100 mls @ 100 mls/hr 09/01/23 15:27 09/01/23 18:24 Ns IV 09/01/23 16:26 Infused ONCE ONE Infusion Sodium Chloride 1,000 mls @ 999 mls/hr 09/01/23 16:45 09/01/23 18:24 Ns IV 09/01/23 17:45 Infused .Q1H1M LATOSHA Infusion Iohexol 100 ml 09/01/23 18:26 09/01/23 18:26 Iohexol 350 Mg/Ml 100 Ml Infus..Btl IV 09/01/23 18:27 85 ml ONCE ONE Administration Medical Decision Making Medical Decision Making MDM Narrative: The patient is a 48-year-old with an unusual history of vascular disease of the mesenteric arteries. He had extensive treatments for this problem at [facility] and wished her in July. He has had mesenteric artery stenting as well as an exploratory laparotomy because of colonic necrosis. He was readmitted to the [facility] at the end of July because of significant anemia. He had additional workup including upper and lower endoscopy. Since there was no evidence of active bleeding was discovered at this time he was ultimately discharged on a ongoing anticoagulation because of his vascular disease. He has been home for little over 2 weeks on apixaban and a baby aspirin daily. He now presents with a 1 day history of dizziness and lightheadedness and he is found to be anemic with a hemoglobin of 6.6. I have obtained records from the [facility]. On August 19 he had a hemoglobin of 9.6. I spoke to a nurse practitioner from the [facility] surgical team and I also spoke to the patient's local gastroenterology, Dr. Garduno. We will get an angiogram of the abdomen and pelvis to evaluate for any possible signs of bleeding. The patient is getting a blood transfusion of packed red cells. The patient denies having had any black or bloody stools. Rectal exam reveals an empty rectum. Nothing to suggest active bleeding in the stool. The patient's vascular surgeon [facility] is Dr. Guzmán., I have spoken to his MEDIA ASSOCIATE Marlo at [phone]. Patient was signed out to the oncoming emergency physician pending the results of the CT angiogram of the abdomen and pelvis and a 2nd unit of blood. Lab Data 09/01/23 12:18 09/01/23 12:17 Labs: Lab Results 09/01/23 09/01/23 09/01/23 Range/Units 12:17 12:18 13:33 WBC 7.4 (4.8-10.8) X10*3/uL RBC 2.69 L D (4.60-5.80) X10*6/uL Hgb 6.6 L* D (14.0-18.0) g/dl Hct 22.7 L D (42.0-52.0) % MCV 84.4 (80.0-98.0) fL MCH 24.5 L (27.0-33.0) pg MCHC 29.1 L (31.0-36.0) g/dl RDW 16.8 H (11.0-16.0) % Plt Count 618 H D (160-400) X10*3/uL MPV 8.8 L (9.4-12.4) fL Immature Gran % (Auto) 0.4 (0.0-0.4) % Neut % (Auto) 60.9 (45-73) % Lymph % (Auto) 22.6 (20-40) % [place] % (Auto) 11.2 H (2-11) % Eos % (Auto) 4.0 (0-4) % Baso % (Auto) 0.9 (0-2) % Lymph # (Auto) 1.7 (1.2-4.9) X10*3/uL [place] # (Auto) 0.8 (0.1-1.2) X10*3/uL Eos # (Auto) 0.3 (0.0-0.4) X10*3/uL Baso # (Auto) 0.1 (0.0-0.2) X10*3/uL Abs Immat Gran (auto) 0.03 (0.00-0.03) X10*3/uL Absolute Neuts (auto) 4.5 (2.0-8.3) x10*3/uL Absolute Nucleated RBC 0.000 (0.0-0.012) X10*3/uL Nucleated RBC % (auto) 0.0 (0.0-0.2) /100WBC Sodium 141 (135-145) mmol/L Potassium 4.0 (3.3-5.1) mmol/L Chloride 105 (96-108) mmol/L Carbon Dioxide 28 (22-29) mmol/L Anion Gap 12 (12-20) BUN 8 L (9-16) mg/dL Creatinine 0.67 (0.5-1.4) mg/dL Estim Creat Clear Calc 127.1 Estimated GFR > 60 Random Glucose 120 H (60-115) mg/dL Calcium 9.2 D (8.4-10.2) mg/dL Total Bilirubin 0.4 (0.0-1.0) mg/dL Direct Bilirubin 0.1 (0.0-0.5) mg/dL AST 12 (5-37) U/L ALT 11 (0-40) U/L Alkaline Phosphatase 72 (39-117) U/L Troponin I High Sens < 2.7 (<3.5-35.0) ng/L Total Protein 6.9 (6.5-8.0) g/dL Albumin 3.8 (3.5-5.0) g/dL Lipase 34 (8-78) U/L Influenza Type A (PCR) NEGATIVE (Negative) Influenza Type B (PCR) NEGATIVE (Negative) RSV RNA Qual (PCR) NEGATIVE (Negative) SARS-CoV-2 RNA (RT-PCR) NEGATIVE (Negative) Blood Type O Positive Antibody Screen NEGATIVE Crossmatch See Detail Discharge Plan Discharge Clinical Impression: Anemia Patient Disposition: Still a Patient Prescriptions: No Action mesalamine [Apriso] 0.375 gram capsule,extended release 24hr 1.5 g PO QAM Qty: 120 2RF rosuvastatin [Crestor] 20 mg tablet 20 mg PO DAILY Qty: 90 3RF alum-mag hydroxide-simeth [Maalox Advanced] 200-200-20 mg/5 mL suspension 5 ml PO 5XD PRN (Reason: dyspepsia) Qty: 355 0RF Rx Instructions: administer between meals and at bedtime aspirin 81 mg capsule 81 mg PO DAILY Qty: 30 0RF sucralfate 1 gram tablet 1 tab PO BEDTIME diclofenac sodium 1 % gel 2 g topical QID PRN (Reason: elbow pain ) Qty: 100 0RF Rx Instructions: apply to single elbow, wrist or hand; for hand includes palm/fingers/back of hand ketotifen fumarate [Allergy Eye (ketotifen)] 0.025 % (0.035 %) drops 1 drp ophthalmic (eye) BID Qty: 5 6RF Rx Instructions: administer at least 8 hours apart clopidogrel 75 mg tablet 75 mg PO DAILY
--- NOTE | 2023-09-01 12:05 | ECG_ITS ---
Test Reason : WEAKNESS Blood Pressure : / mmHG Vent. Rate : 091 BPM Atrial Rate : 091 BPM P-R Int : 108 ms QRS Dur : 104 ms QT Int : 330 ms P-R-T Axes : 063 019 015 degrees QTc Int : 405 ms Sinus rhythm with short OR Otherwise normal ECG When compared with ECG of 20-JUL-2023 11:26, T wave inversion less evident in Inferior leads Referred By: Thao Rodriguez Electronically Signed By:VINAY HER MD
[2023-09-01 12:23] LABS: MANUAL DIFF FLAG NO
[2023-09-01 12:31] LABS: Basophils Absolute Auto 0.1 X10*3/uL (0.0-0.2); Basophils Percent Auto 0.9 % (0-2); Eosinophils Absolute Auto 0.3 X10*3/uL (0.0-0.4); Hematocrit 22.7 % (42.0-52.0); Imm Gran Abs Auto 0.03 X10*3/uL (0.00-0.03); Imm Gran Pct Auto 0.4 % (0.0-0.4); Lymphocytes Absolute Auto 1.7 X10*3/uL (1.2-4.9); Lymphocytes Percent Auto 22.6 % (20-40); Mean Corpuscular HGB Conc 29.1 g/dl (31.0-36.0); Mean Corpuscular Hemoglobin 24.5 pg (27.0-33.0); Mean Corpuscular Volume 84.4 fL (80.0-98.0); Mean Platelet Volume 8.8 fL (9.4-12.4); Monocytes Absolute Auto 0.8 X10*3/uL (0.1-1.2); Monocytes Percent Auto 11.2 % (2-11); Neutrophils Absolute Auto 4.5 x10*3/uL (2.0-8.3); Neutrophils Percent Auto 60.9 % (45-73); Platelet Count 618 X10*3/uL (160-400); Red Blood Count 2.69 X10*6/uL (4.60-5.80); Red Cell Distribution Width 16.8 % (11.0-16.0); White Blood Count 7.4 X10*3/uL (4.8-10.8)
[2023-09-01 12:39] LABS: Hemoglobin 6.6 g/dl (14.0-18.0)
[2023-09-01 12:49] LABS: Alanine Aminotransferase 11 U/L (0-40); Albumin Level 3.8 g/dL (3.5-5.0); Alkaline Phosphatase 72 U/L (39-117); Anion Gap 12 (12-20); Aspartate Amino Transferase 12 U/L (5-37); Bilirubin Direct 0.1 mg/dL (0.0-0.5); Bilirubin Total 0.4 mg/dL (0.0-1.0); Blood Urea Nitrogen 8 mg/dL (9-16); Calcium 9.2 mg/dL (8.4-10.2); Carbon Dioxide 28 mmol/L (22-29); Chloride 105 mmol/L (96-108); Creatinine Clr Calc Pharmacy 127.1; Estimated Glomerular Filt Rate > 60; Glucose Random 120 mg/dL (60-115); Lipase 34 U/L (8-78); Sodium 141 mmol/L (135-145); Total Protein 6.9 g/dL (6.5-8.0)
[2023-09-01 13:02] LABS: Troponin-I High Sensitivity < 2.7 ng/L (<3.5-35.0)
[2023-09-01 13:04] LABS: Influenza A PCR NEGATIVE (Negative); Influenza B PCR NEGATIVE (Negative); Resp Syncy Virus RNA Qual PCR NEGATIVE (Negative); SARS COV2 PCR INHOUSE NEGATIVE (Negative)
--- NOTE | 2023-09-01 15:51 | PC.NURSE ---
md luis obtained blood consent at bedside. rn doing pre-blood pick-up process.
--- NOTE | 2023-09-01 16:17 | PC.NURSE ---
at [facility] doing patient verification process in order to start blood. 2nd iv in place. vs stable
[2023-09-01] MEDS: 0.9 % Sodium Chloride 1,000 ML 999 ML IV (16:45)
--- NOTE | 2023-09-01 16:53 | PC.NURSE ---
per MD Anders, wants the rest of the blood in an hour. at bedside double verifying rate change with wai tinoco. vs stable. no sob/n/v/cp/dizziness/other new sx. afebrile
[2023-09-01] MEDS: iohexoL 350 MG/ML 100 ML INFUS..BTL IV (18:26)
--- NOTE | 2023-09-01 18:41 | PC.NURSE ---
blood finished. 15 min vitals check complete. has ordered another unit. readying pt for next prbc unit
--- NOTE | 2023-09-01 19:04 | PC.NURSE ---
shift change. pt no sx tx reaction. talking well. no distress.
--- NOTE | 2023-09-01 20:18 | PC.NURSE ---
second unit of blood hung at this time. vss. pt denies SOB, lung sounds clear bilaterally.
--- NOTE | 2023-09-01 22:31 | PC.NURSE ---
pt ambulated to bathroom with steady gait. denies n/v and sob.
--- NOTE | 2023-09-01 23:14 | PC.NURSE ---
second unit of blood complete at this time. pt denies SOB, chest pain and dizziness. pt vss.
== END 2023-09-02 00:02 | disposition home or self-care (01) ==
PROVIDERS: Physician Assistant Medical; Emergency Provider Emergency Medicine; PCP Internal Medicine
DX: D64.9 Anemia, unspecified (principal); R53.1 Weakness; R94.31 Abnormal electrocardiogram [ECG] [EKG]; F17.210 Nicotine dependence, cigarettes, uncomplicated; Z71.6 Tobacco abuse counseling; Z79.899 Other long term (current) drug therapy; Z20.822 Contact with and (suspected) exposure to COVID-19; Z20.828 Contact with and (suspected) exposure to other viral communicable diseases
CPT/HCPCS: 0241U; 36415; 36430; 74174; 80048; 80076; 83690; 84484; 85025; 86850; 86900; 86901; 86923; 93005; 96360; 96361; 99285; P9016; Q9967

== ENCOUNTER → 2023-09-01 12:05 | Outpatient (BNV) | payer OTHER, SELFPAY | PROVIDERS: Emergency Provider Emergency Medicine; PCP Internal Medicine; Visit Provider Internal Medicine Cardiovascular Disease | DX: R53.1 Weakness (principal) | CPT/HCPCS: 93010 ==

== ENCOUNTER 2023-09-05 09:12 | Outpatient (REF) | payer OTHER, SELFPAY ==
[2023-09-05 10:33] LABS: MANUAL DIFF FLAG NO
[2023-09-05 11:12] LABS: Basophils Absolute Auto 0.1 X10*3/uL (0.0-0.2); Basophils Percent Auto 0.5 % (0-2); Eosinophils Absolute Auto 0.3 X10*3/uL (0.0-0.4); Eosinophils Percent Auto 1.9 % (0-4); Hematocrit 31.9 % (42.0-52.0); Hemoglobin 9.6 g/dl (14.0-18.0); Imm Gran Abs Auto 0.05 X10*3/uL (0.00-0.03); Imm Gran Pct Auto 0.4 % (0.0-0.4); Lymphocytes Absolute Auto 1.9 X10*3/uL (1.2-4.9); Lymphocytes Percent Auto 14.9 % (20-40); Mean Corpuscular HGB Conc 30.1 g/dl (31.0-36.0); Mean Corpuscular Hemoglobin 25.7 pg (27.0-33.0); Mean Corpuscular Volume 85.5 fL (80.0-98.0); Monocytes Absolute Auto 1.1 X10*3/uL (0.1-1.2); Monocytes Percent Auto 8.7 % (2-11); Neutrophils Absolute Auto 9.5 x10*3/uL (2.0-8.3); Neutrophils Percent Auto 73.6 % (45-73); Platelet Count 586 X10*3/uL (160-400); Red Blood Count 3.73 X10*6/uL (4.60-5.80); Red Cell Distribution Width 17.3 % (11.0-16.0)
[2023-09-05 12:01] LABS: Alanine Aminotransferase 15 U/L (0-40); Alkaline Phosphatase 93 U/L (39-117); Anion Gap 10 (12-20); Aspartate Amino Transferase 15 U/L (5-37); Bilirubin Total 0.4 mg/dL (0.0-1.0); Blood Urea Nitrogen 7 mg/dL (9-16); C Reactive Protein 0.66 mg/dL (< or = 0.50); Calcium 9.4 mg/dL (8.4-10.2); Carbon Dioxide 27 mmol/L (22-29); Chloride 105 mmol/L (96-108); Estimated Glomerular Filt Rate > 60; Glucose Random 101 mg/dL (60-115); Sodium 138 mmol/L (135-145); Total Protein 7.6 g/dL (6.5-8.0)
[2023-09-05 12:25] LABS: Ferritin 50 ng/mL (20-250)
[2023-09-05 12:45] LABS: Folate 8.5 ng/mL (> or = 4.0); Vitamin B12 511 pg/mL (200-900)
[2023-09-05 14:02] LABS: Haptoglobin 173 MG/DL ((30-200))
[2023-09-09 22:02] LABS: Transglutaminase Ab IgG <1.0 U/mL; Transglutaminase IgA <1.0 U/mL
[2023-09-10 12:23] LABS: Zinc 79 mcg/dL (60-130)
[2023-09-10 13:33] LABS: Vitamin B6 5.5 ng/mL (2.1-21.7)
[2023-09-11 17:29] LABS: Vitamin C 0.8 mg/dL (0.2-2.1)
[2023-09-11 21:04] LABS: Vitamin A 41 mcg/dL (38-98)
[2023-09-12 06:18] LABS: Vitamin B1 8 nmol/L (8-30)
[2023-09-13 17:24] LABS: Nicotinamide <20 ng/mL; Vit B3 - Nicotinic Acid <20 ng/mL
[2023-09-14 23:34] LABS: Vitamin B5 (Pantothenic Acid) <40 ng/mL (<275)
== END 2023-09-05 09:13 | disposition home or self-care (01) ==
LOC: HO.LAB 09:12
PROVIDERS: PCP Internal Medicine; Visit Provider Internal Medicine Gastroenterology
DX: K55.1 Chronic vascular disorders of intestine (principal); K52.9 Noninfective gastroenteritis and colitis, unspecified; K75.81 Nonalcoholic steatohepatitis (NASH); R10.33 Periumbilical pain; G89.29 Other chronic pain; D64.9 Anemia, unspecified
CPT/HCPCS: 36415; 80053; 82180; 82607; 82728; 82746; 83010; 84207; 84425; 84590; 84591; 84630; 85025; 86140; 86364; 99212

== ENCOUNTER 2023-09-05 09:12 | Outpatient (AMB) | payer OTHER, SELFPAY ==
--- NOTE | 2023-09-05 09:17 | A.OFFVIS_ITS ---
Intake Vital Signs 09/05/23 09:21 Height 6 ft Weight 152 lb 1.903 oz BMI 20.6 BP 128/67 Blood Pressure Location Lt brachial Position Sitting Pulse 92 Intake Visit Reasons: f/u blood transfusion Intake Note: Seth presents in the office as a follow up. CC: He states that noone knows where he is bleeding from. He was told that the blood is evaporating inside and he is not sure what this means. He is pale and he feels very weak. He wants a HGB test again. Allergies No Known Allergies Allergy (Verified 09/05/23 09:23) HPI f/u blood transfusion HPI Details RECAP: Had been seeing vizcarra for pain and nausea, upper abdominal pain--going on for 3-4 years he was admitted for colitis 05/2022 thought infectious and was given ABX LABS: c diff neg GI stool PCR--neg HGB: 13.9 EGD/sigmoidoscopy: Endoscopy Findings: gastric erosions and ulcers erosive esophagitis duodenitis Sigmoidoscopy Findings: internal and external hemorrhoids EGD/colonoscopy 09/04: Endoscopy Findings: duodenitis erosive gastritis esophagitis Colonoscopy Findings: polyps--granular cell tumour internal hemorrhoids IMAGING: CT 05/2022: wall thickening of ascending colon and hepatic flexure Enlarged prostate. Repeat colonoscopy: 07/2022 Cecum: 10 mm sessile polyp removed with cold snare Random right sided bx taken, also at hepatic flexure area there were 2 folds that appeared to have contiguous villiform appearance consistent with adenomatous invasion with full circumference involved, bx were taken. red ink was injected few cm proximal and distal to these folds. Bx with crypt disarray and hyperplastic inflammatory changes --no dysplasia was seen on the biopsies or neoplasia, or adenomatous tissue mesenteric US with abn flow in celiac and SMA CTA with redcued flow SMA and celiac art stenosis with retrograde flow GDA He eventually went to [facility] and he had stents placed into the mesenteric circulation HE then had stent occlusison and needed bowel resection-right hemicolectomy and re stenting He has also had anemia and had EGD, colonoscopy at [facility] which were apparently neg apart from few small AVM treated with APC CTA 09/06 for anemia in the ED and he had 2 units blood : 1. No evidence of active arterial extra vasation or intra-abdominal/pelvic hemorrhage to account for the patient's dropping hematocrit. 2. Interval right hemicolectomy with love ture line in the right abdomen. A tiny amount of blood may be seen around the surgical site. A large hematoma is not present. There may be a small fluid collection seen but without oral contrast, this is difficult to assess. 3. Previously occluded SMA stent. The S MA stent has been extended and the SMA is now widely patent stent. 4. Severe celiac stenosis/occlusion wit h distal vasculature filling through the inferior pancreaticoduodenal artery. 5. Tight SOLOMON stenosis. 6. Other incidental findings as describ ed above. INTERIM: Feeling weak losing weight again no melena, no rectal bleeding no nausea or vomiting appetite is good no abdominal pain stopped smoking cigs EXAM: GENERAL: The patient is thin, VITAL SIGNS:see workflow HEENT: Nonicteric sclerae, PERRLA, EOMI. Oropharynx clear. Moist mucous membranes. Conjunctivae appear well perfused. No thyroid mass. CHEST: Chest wall is nontender. HEART: Regular rate and rhythm without murmurs. LUNGS: Clear to auscultation bilaterally. ABDOMEN: Soft, positive bowel sounds, tender epigastrium, no organomegaly.no flank tenderness SKIN: No rash, no excessive bruising, petechiae, or purpura. NEUROLOGIC: Cranial nerves II-XII intact without motor/sensory deficit. Psych: slighty low affect A/P: 1/ chronic mesenteric ischemia, s/p sten ting with occlusion and bowel ischemia s/p right hemicolectomy with recurrent anemia on aspirin and plavix--? 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 Maternal Aunt No problems noted. Social History Household Members: Spouse Housing: Apartment Do you presently have visiting nurse or other home services: No Patient Tobacco Use Status: Current everyday Tobacco user Tobacco use type: Cigarette and Cigar Cigarettes Per Day: 2 Years Smoked: 3 e-Cigarette/Vaping Use: Never Used service: No Current occupational status: employed Cognitive needs: No Hearing needs: No Vision needs: No Physical Exam Vital Signs: Last Vital Signs Pulse 92 09/05/23 09:21 BP 128/67 09/05/23 09:21 BMI result Body Mass Index 20.6 Assessment & Plan Assessment & Plan (1) Chronic vascular insufficiency of intestine: Code(s): K55.1 - Chronic vascular disorders of intestine Plan: A/P: 1/ chronic mesenteric ischemia, s/p stenting with occlusion and bowel ischemia s/p right hemicolectomy with recurrent anemia on aspirin and plavix--? occult blood loss, hemolysis 2/ granular tumour of colon, PLAN: 1/ resent apriso as he felt i tmad ehim feel better in past 2/ rechekc labs, haptoglobin, ferritin, nutrients 3/ cpasule endo--urgent (2) IBD (inflammatory bowel disease): Code(s): K52.9 - Noninfective gastroenteritis and colitis, unspecified Plan: A/P: 1/ chronic mesenteric ischemia, s/p stenting with occlusion and bowel ischemia s/p right hemicolectomy with recurrent anemia on aspirin and plavix--? occult blood loss, hemolysis 2/ granular tumour of colon, PLAN: 1/ resent apriso as he felt i tmad ehim feel better in past 2/ rechekc labs, haptoglobin, ferritin, nutrients 3/ cpasule endo--urgent (3) Anemia: Code(s): D64.9 - Anemia, unspecified Plan: A/P: 1/ chronic mesenteric ischemia, s/p stenting with occlusion and bowel ischemia s/p right hemicolectomy with recurrent anemia on aspirin and plavix--? occult blood loss, hemolysis 2/ granular tumour of colon, PLAN: 1/ resent apriso as he felt i tmad ehim feel better in past 2/ rechekc labs, haptoglobin, ferritin, nutrients 3/ cpasule endo--urgent Orders: Orders Ferritin Today K52.9 - Noninfective gastroenteritis and colitis, unspecified, K55.1 - Chronic vascular disorders of intestine Transglutaminase Ab IgG Today G89.29 - Other chronic pain, K52.9 - Noninfective gastroenteritis and colitis, unspecified, K55.1 - Chronic vascular disorders of intestine, R10.33 - Periumbilical pain Vitamin B12 and Folate Today K52.9 - Noninfective gastroenteritis and colitis, unspecified, K55.1 - Chronic vascular disorders of intestine Vitamin C Today K52.9 - Noninfective gastroenteritis and colitis, unspecified, K55.1 - Chronic vascular disorders of intestine Transglutaminase IgA Today K52.9 - Noninfective gastroenteritis and colitis, unspecified, K55.1 - Chronic vascular disorders of intestine Vitamin B1 Today K52.9 - Noninfective gastroenteritis and colitis, unspecified, K55.1 - Chronic vascular disorders of intestine Vitamin A Today K52.9 - Noninfective gastroenteritis and colitis, unspecified, K55.1 - Chronic vascular disorders of intestine Vitamin B3 (Niacin) Today K52.9 - Noninfective gastroenteritis and colitis, unspecified, K55.1 - Chronic vascular disorders of intestine Vitamin B5 (Pantothenic Acid) Today K52.9 - Noninfective gastroenteritis and colitis, unspecified, K55.1 - Chronic vascular disorders of intestine Vitamin B6 Today K52.9 - Noninfective gastroenteritis and colitis, unspecified, K55.1 - Chronic vascular disorders of intestine Zinc Today K52.9 - Noninfective gastroenteritis and colitis, unspecified, K55.1 - Chronic vascular disorders of intestine Complete Blood Count Auto Diff Today K52.9 - Noninfective gastroenteritis and colitis, unspecified, K55.1 - Chronic vascular disorders of intestine Comprehensive Met. Panel Today K52.9 - Noninfective gastroenteritis and colitis, unspecified, K55.1 - Chronic vascular disorders of intestine, K75.81 - Nonalcoholic steatohepatitis (CARTER) Haptoglobin Today K52.9 - Noninfective gastroenteritis and colitis, unspecified, K55.1 - Chronic vascular disorders of intestine Other Ref Test - Misc Today D64.9 - Anemia, unspecified, K52.9 - Noninfective gastroenteritis and colitis, unspecified, K55.1 - Chronic vascular disorders of intestine Medications: New clopidogrel 75 mg PO DAILY 90 tabs 2RF peg-electrolyte soln 420 gram until fecal effluent is clear; do not exceed a total volume of 2,000 mL 240 mL PO Q10M 4,000 mL 0RF Refilled mesalamine ER (Apriso) 1.5 grams (4 x 0.375 gram) PO QAM 120 caps 2RF Coding Level of Care Code Est Pt Level 4 (27556) Diagnoses Chronic vascular insufficiency of intestine K55.1 IBD (inflammatory bowel disease) K52.9 Anemia D64.9
[2023-09-05 09:21] VITALS: BP 128/67; PULSE 92; BMI 20.6
== END 2023-09-05 10:49 | disposition home or self-care (01) ==
PROVIDERS: PCP Internal Medicine; Visit Provider Internal Medicine Gastroenterology
DX: K55.1 Chronic vascular disorders of intestine (principal); K52.9 Noninfective gastroenteritis and colitis, unspecified; D64.9 Anemia, unspecified
CPT/HCPCS: 99214

== ENCOUNTER 2023-09-17 11:39 | Outpatient (REF) | payer OTHER, SELFPAY ==
[2023-09-17 14:40] LABS: Alanine Aminotransferase 17 U/L (0-40); Alkaline Phosphatase 76 U/L (39-117); Anion Gap 11 (12-20); Aspartate Amino Transferase 13 U/L (5-37); Bilirubin Total 0.2 mg/dL (0.0-1.0); Blood Urea Nitrogen 9 mg/dL (9-16); Calcium 9.4 mg/dL (8.4-10.2); Carbon Dioxide 27 mmol/L (22-29); Chloride 106 mmol/L (96-108); Estimated Glomerular Filt Rate > 60; Glucose Random 91 mg/dL (60-115); Potassium 3.7 mmol/L (3.3-5.1); Sodium 140 mmol/L (135-145); Total Protein 7.5 g/dL (6.5-8.0)
== END 2023-09-17 11:40 | disposition home or self-care (01) ==
LOC: HO.LAB 11:39
PROVIDERS: PCP Internal Medicine; Visit Provider Internal Medicine Gastroenterology
DX: K55.1 Chronic vascular disorders of intestine (principal); K52.9 Noninfective gastroenteritis and colitis, unspecified; K75.81 Nonalcoholic steatohepatitis (NASH)
CPT/HCPCS: 36415; 80053; 85025

== ENCOUNTER → 2023-09-22 08:49 | Outpatient (BNVA) | payer OTHER, SELFPAY | PROVIDERS: PCP Internal Medicine; Visit Provider Internal Medicine Gastroenterology | DX: D64.9 Anemia, unspecified (principal) | CPT/HCPCS: 91110 ==

== ENCOUNTER 2023-09-22 08:50 | Outpatient (AMB) | payer OTHER, SELFPAY ==
--- NOTE | 2023-09-22 09:02 | AM.OFFVISNUR ---
Intake Intake Visit Reasons: CAPSULE ENDOSCOPY Allergies No Known Allergies Allergy (Verified 09/05/23 09:23) Nursing Note Patient presents to the office for a capsule endoscopy. I discussed the procedure with the patient and provided with instructions to take home. Patient informed of risk with capsule endoscopy and consent was obtained. Patient was advised to return to the office at 4:30pm to remove equipment. Patient had no further questions or concerns. Coding
== END 2023-09-22 09:04 | disposition home or self-care (01) ==
PROVIDERS: PCP Internal Medicine; Visit Provider Internal Medicine Gastroenterology
DX: D64.9 Anemia, unspecified (principal)
CPT/HCPCS: 91110

== ENCOUNTER 2023-10-09 14:07 | Outpatient (REF) | payer OTHER, SELFPAY | END 2023-10-09 14:08 | disposition home or self-care (01) | LOC: HO.MDS 14:07 | PROVIDERS: Visit Provider Internal Medicine Gastroenterology | DX: D50.9 Iron deficiency anemia, unspecified (principal) | CPT/HCPCS: 96365; J1756 ==

== ENCOUNTER 2023-10-10 10:20 | Outpatient (AMB) | payer OTHER, SELFPAY ==
[2023-10-10 10:27] VITALS: BP 113/76; PULSE 91; BMI 22.1
--- NOTE | 2023-10-10 10:27 | MHC.OFFVIS ---
Intake Vital Signs 10/10/23 10:27 Height 6 ft Weight 163 lb 2.273 oz BMI 22.1 BP 113/76 Blood Pressure Location Lt brachial Position Sitting Pulse 91 Intake Visit Reasons: 5 week follow up Intake Note: Seth presents in the office as a 5 week follow up. CC: He states that he is having issues with sleeping. He states that there feels like his skin is crawling or something is moving inside. He has to urinate every 2 hours in the night and he is very jumpy. Driller Machine Required: Yes Driller Machine Name: [id number] Allergies No Known Allergies Allergy (Verified 10/10/23 10:27) HPI 5 week follow up HPI Details 48 yr old m here for f/u RECAP: Had been seeing vizcarra for pain and nausea, upper abdominal pain--going on for 3-4 years he was admitted for colitis 05/2022 thought infectious and was given ABX LABS: c diff neg GI stool PCR--neg HGB: 13.9 EGD/sigmoidoscopy: Endoscopy Findings: gastric erosions and ulcers erosive esophagitis duodenitis Sigmoidoscopy Findings: internal and external hemorrhoids EGD/colonoscopy 09/04: Endoscopy Findings: duodenitis erosive gastritis esophagitis Colonoscopy Findings: polyps--granular cell tumour internal hemorrhoids IMAGING: CT 05/2022: wall thickening of ascending colon and hepatic flexure Enlarged prostate. Repeat colonoscopy: 07/2022 Cecum: 10 mm sessile polyp removed with cold snare Random right sided bx taken, also at hepatic flexure area there were 2 folds that appeared to have contiguous villiform appearance consistent with adenomatous invasion with full circumference involved, bx were taken. red ink was injected few cm proximal and distal to these folds. Bx with crypt disarray and hyperplastic inflammatory changes --no dysplasia was seen on the biopsies or neoplasia, or adenomatous tissue mesenteric US with abn flow in celiac and SMA CTA with redcued flow SMA and celiac art stenosis with retrograde flow GDA He eventually went to [facility] and he had stents placed into the mesenteric circulation HE then had stent occlusison and needed bowel resection-right hemicolectomy and re stenting He has also had anemia and had EGD, colonoscopy at [facility] which were apparently neg apart from few small AVM treated with APC CTA 09/06 for anemia in the ED and he had 2 units blood : 1. No evidence of active arterial extravasation or intra-abdominal/pelvic hemorrhage to account for the patient's dropping hematocrit. 2. Interval right hemicolectomy with suture line in the right abdomen.A tiny amount of blood may be seen around the surgical site. A large hematoma is not present. There may be a small fluid collection seen but without oral contrast, this is difficult to assess. 3. Previously occluded SMA stent. The SMA stent has been extended andthe SMA is now widely patent stent. 4. Severe celiac stenosis/occlusion with distal vasculature fillingthrough the inferior pancreaticoduodenal artery. 5. Tight SOLOMON stenosis. 6. Other incidental findings as described above. Capsule endoscopy: 09/2023-- few oozing spots noted in small bowel with AVM INTERIM: Feeling weak--has jerking movements melinda at night just got iron infusion x 1 recently more planned, stopped plavix and now on eliquis per cardiology at [facility] no melena, no rectal bleeding no nausea or vomiting appetite is good no abdominal pain EXAM: GENERAL: The patient is thin, VITAL SIGNS:see workflow HEENT: Nonicteric sclerae, PERRLA, EOMI. Oropharynx clear. Moist mucous membranes. Conjunctivae appear well perfused. No thyroid mass. CHEST: Chest wall is nontender. HEART: Regular rate and rhythm without murmurs. LUNGS: Clear to auscultation bilaterally. ABDOMEN: Soft, positive bowel sounds, tender epigastrium, no organomegaly.no flank tenderness---lap scar noted with small hernia SKIN: No rash, no excessive bruising, petechiae, or purpura. NEUROLOGIC: Cranial nerves II-XII intact without motor/sensory deficit. 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 Maternal Aunt No problems noted. Social History Household Members: Spouse Housing: Apartment Do you presently have visiting nurse or other home services: No Patient Tobacco Use Status: Current everyday Tobacco user Tobacco use type: Cigarette and Cigar Cigarettes Per Day: 2 Years Smoked: 3 e-Cigarette/Vaping Use: Never Used service: No Current occupational status: employed Cognitive needs: No Hearing needs: No Vision needs: No Physical Exam Vital Signs: Last Vital Signs Pulse 91 10/10/23 10:27 BP 113/76 10/10/23 10:27 BMI result Body Mass Index 22.1 Assessment & Plan Assessment & Plan (1) Chronic vascular insufficiency of intestine: Code(s): K55.1 - Chronic vascular disorders of intestine Plan: A/P: 1/ chronic mesenteric ischemia, s/p stenting with occlusion and bowel ischemia s/p right hemicolectomy with recurrent anemia on aspirin and eliquis, bleeding from AVM 2/ granular tumour of colon, PLAN: 1/ push enteroscopy with APC, see if ok to stop eliquis per cardiology 2/ Cont with iron infusions Medications: Refilled aspirin 81 mg PO DAILY 30 caps 3RF Discontinued clopidogrel Discontinued Reason: Patient Completed Course 75 mg PO DAILY 90 tabs 2RF Coding Level of Care Code Est Pt Level 4 (04220) Diagnoses Chronic vascular insufficiency of intestine K55.1
== END 2023-10-10 11:03 | disposition home or self-care (01) ==
PROVIDERS: PCP Internal Medicine; Visit Provider Internal Medicine Gastroenterology
DX: K55.1 Chronic vascular disorders of intestine (principal)
CPT/HCPCS: 99214

== ENCOUNTER → 2023-10-10 10:20 | Outpatient (BNVA) | payer OTHER, SELFPAY | PROVIDERS: PCP Internal Medicine; Visit Provider Internal Medicine Gastroenterology | DX: K55.1 Chronic vascular disorders of intestine (principal) | CPT/HCPCS: 99212 ==

== ENCOUNTER 2023-10-16 08:13 | Emergency (ER) | payer OTHER, SELFPAY ==
--- NOTE | ~2023-10-16 | CT_ITS ---
EXAMINATION: CT ABDOMEN AND PELVIS WITH CONTRAST CLINICAL INFORMATION: Right lower quadrant pain. History of abdominal surgeries. COMPARISON: 09/01/2023 TECHNIQUE: Multidetector volumetric images were obtained from the superior aspect of the liver through the pubic symphysis following administration 85 mL of Omnipaque 350 intravenous contrast. Sagittal and coronal reformatted images were obtained on the technologist's workstation. Oral contrast: No This CT examination was performed using dose optimization techniques as appropriate, variously including the following: *Automated exposure control *Adjustment of mA and/or kV according to patient size (this includes techniques or standardized protocols for targeted exams where dose is matched to indication/reason for exam; i.e. extremities or head) *Use of iterative reconstruction technique DLP: 475 mGy-cm FINDINGS: LUNG BASES: The visualized lung bases are unremarkable. LIVER, GALLBLADDER, AND BILIARY TREE: The liver is normal in size, shape, and attenuation. No focal hepatic lesion or biliary ductal dilatation is present. The gallbladder is unremarkable with no evidence of radiopaque gallstones, gallbladder wall thickening, or obvious pericholecystic inflammatory changes. PANCREAS: Unremarkable. SPLEEN: Unremarkable. ADRENAL GLANDS: Unremarkable. KIDNEYS AND URETERS: 1 mm nonobstructive stone mid to lower right kidney. No right or left hydronephrosis or perinephric collection. BLADDER: Unremarkable. GASTROINTESTINAL TRACT: Abnormal. There is a definite inflammatory process in the right lower quadrant surrounding surgical clips and what appears to be thick walled indurated small bowel loops. Focal enteritis could have such an appearance. I do not see any drainable collections. Any history of Crohn's disease? Small bowel is not distended. No left lower quadrant inflammation. Surgical sutures intact. Appendix not identified. ABDOMINAL WALL: No significant hernia is appreciated. LYMPH NODES: Normal. VASCULAR: There appears to be a stent in the origin of the SMA. . PELVIC VISCERA: Unremarkable. OSSEOUS STRUCTURES: Unremarkable. CT/CT abdomen pelvis w IV con IMPRESSION: Right lower quadrant inflammatory process possibly related to ileitis or enteritis. No drainable abscess collections. Fleischner guidelines were followed.
[2023-10-16 08:16] VITALS: BP 135/80; PULSE 90; RESP 18; TEMP 37.1; O2SAT 100; BMI 22.0
[2023-10-16 10:21] LABS: Appearance Urine Clear; Color Urine Yellow; Glucose Urine UA Negative (Negative); Leukocyte Esterase Urine Negative (Negative); Nitrite Urine Negative (Negative); PH 5.5 (5.0-9.0); Urine Blood Negative (Negative); Urine Ketones Negative (Negative); Urine Protein Negative (Neg-Trace)
[2023-10-16 10:34] LABS: Prothrombin Time 11.8 SEC (11.1-13.3)
[2023-10-16] MEDS: 0.9 % Sodium Chloride 500 ML 999 ML IV (10:34)
[2023-10-16 10:36] LABS: IDNOW Serial# 9DB6401D; Influenza A Negative (Negative); Influenza B2 Negative (Negative)
[2023-10-16 10:48] LABS: COVID-19 Test Negative (Negative); IDNOW Serial# 08D9AD1C
[2023-10-16 11:01] LABS: Alanine Aminotransferase 18 U/L (0-40); Alkaline Phosphatase 78 U/L (39-117); Anion Gap 8 (12-20); Aspartate Amino Transferase 16 U/L (5-37); Bilirubin Direct < 0.2 mg/dL (0.0-0.5); Bilirubin Total 0.2 mg/dL (0.0-1.0); Blood Urea Nitrogen 8 mg/dL (9-16); Calcium 9.2 mg/dL (8.4-10.2); Carbon Dioxide 26 mmol/L (22-29); Chloride 109 mmol/L (96-108); Estimated Glomerular Filt Rate > 60; Glucose Random 97 mg/dL (60-115); Lipase 19 U/L (8-78); Magnesium 2.1 mg/dL (1.6-2.6); Potassium 4.3 mmol/L (3.3-5.1); Sodium 139 mmol/L (135-145); Total Protein 7.4 g/dL (6.5-8.0)
[2023-10-16] MEDS: iohexoL 350 MG/ML 100 ML INFUS..BTL 85 ML IV (11:11)
[2023-10-16 11:50] LABS: Basophils Percent Auto 0.5 % (0-2); Eosinophils Absolute Auto 0.1 X10*3/uL (0.0-0.4); Eosinophils Percent Auto 1.8 % (0-4); Hematocrit 30.9 % (42.0-52.0); Hemoglobin 9.1 g/dl (14.0-18.0); Imm Gran Abs Auto 0.03 X10*3/uL (0.00-0.03); Imm Gran Pct Auto 0.4 % (0.0-0.4); Lymphocytes Absolute Auto 2.6 X10*3/uL (1.2-4.9); Mean Corpuscular HGB Conc 29.4 g/dl (31.0-36.0); Mean Corpuscular Hemoglobin 23.2 pg (27.0-33.0); Mean Corpuscular Volume 78.6 fL (80.0-98.0); Mean Platelet Volume 8.9 fL (9.4-12.4); Monocytes Absolute Auto 0.6 X10*3/uL (0.1-1.2); Monocytes Percent Auto 6.9 % (2-11); Neutrophils Absolute Auto 4.6 x10*3/uL (2.0-8.3); Neutrophils Percent Auto 57.4 % (45-73); Platelet Count 374 X10*3/uL (160-400); Red Blood Count 3.93 X10*6/uL (4.60-5.80); Red Cell Distribution Width 20.3 % (11.0-16.0); White Blood Count 7.9 X10*3/uL (4.8-10.8)
--- NOTE | 2023-10-16 11:57 | ED_ITS ---
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 Garduno, presenting to the ED today complaining of sore throat, posterior oropharyngeal swelling, & brief nosebleed x this morning followed by coughing up blood. Also reports chronic right lower quadrant abdominal pain. Denies fever/chills, ear pain, difficulty or inability to swallow, SOB/CP, vomiting, diarrhea, melena, brbpr Related Data Home Medications Medication Instructions Recorded Confirmed sucralfate 1 gram tablet 1 tab PO BEDTIME 06/02/22 07/23/22 apixaban 5 mg tablet (Eliquis) 5 mg PO BID 10/10/23 pantoprazole 40 mg tablet,delayed 40 mg PO BID 10/10/23 release Previous Rx's Medication Instructions Recorded diclofenac sodium 1 % topical gel 2 g topical QID PRN elbow pain 11/29/21 #100 grams ketotifen fumarate 0.025 % (0.035 1 drp ophthalmic (eye) BID #5 mL 03/01/22 %) eye drops (Allergy Eye (ketotifen)) aluminum-mag hydroxide-simethicone 5 ml PO 5XD PRN dyspepsia #355 mL 10/29/22 200 mg-200 mg-20 mg/5 mL oral susp (Maalox Advanced) rosuvastatin 20 mg tablet (Crestor) 20 mg PO DAILY #90 tabs 03/01/23 mesalamine 0.375 gram 1.5 g (4 x 0.375 gram) PO QAM #120 09/05/23 capsule,extended release 24 hr caps (Apriso) peg-electrolyte solution 420 gram 240 ml PO Q10M #4,000 mL 09/05/23 oral solution amoxicillin 875 mg-potassium 1 tab PO BID 7 days #14 tabs 10/16/23 clavulanate 125 mg tablet aspirin 81 mg capsule 81 mg PO DAILY #30 caps 10/16/23 Allergies Allergy/AdvReac Type Severity Reaction Status Date / Time No Known Allergies Allergy Verified 10/10/23 10:27 Review of Systems 2 Review of Systems: Constitutional: No Fever, No Chills ENT/Mouth: No Ear Pain, No Nasal Congestion, +sore throat, No Rhinorrhea, No Swallowing Difficulty Cardiovascular: No Chest Pain, No SOB Respiratory: No Cough, No Sputum, No Wheezing Gastrointestinal: No Nausea, No Vomiting, No Diarrhea, No Constipation, +Abdominal pain Genitourinary: No Dysuria, No Urinary Frequency, No Hematuria, No Flank Pain Musculoskeletal: No joint pain, No Myalgias, No Joint Swelling Skin: No Skin Lesions, No rash Neuro: No Weakness, No Numbness, No Paresthesias Yes all other systems are reviewed and are negative Constitutional: Constitutional: Reports as per [facility] Past Medical History Attestation statement: The following information was validated with the patient. Source: old records reviewed Medical History Anemia Superior mesenteric artery stenosis Celiac artery stenosis Vaccine refused by patient (~09/05/23) Cigar smoker unmotivated to quit Chronic vascular insufficiency of intestine Impaired fasting glucose Diarrhea Granular cell tumor Chronic GERD Surgical History Hx of colectomy Hx of appendectomy Hx of colonoscopy Family History Family History Maternal Aunt No problems noted. Maternal Aunt No problems noted. Social History Social History Household Members: Spouse Housing: Apartment Do you presently have visiting nurse or other home services: No Patient Tobacco Use Status: Current everyday Tobacco user Tobacco use type: Cigarette and Cigar Cigarettes Per Day: 2 Years Smoked: 3 e-Cigarette/Vaping Use: Never Used Advance Directives: No service: No Current occupational status: employed Cognitive needs: No Hearing needs: No Vision needs: No Physical Exam ED Vital Signs: Vital Signs - 24 hr 10/16/23 08:16 Temperature 98.8 F Pulse Rate 90 Respiratory Rate 18 Blood Pressure 135/80 Pulse Oximetry 100 Oxygen Delivery Method Room Air BMI result Body Mass Index 22.0 Const General: cooperative, healthy appearing and no acute distress Orientation/consciousness: patient oriented x3 Limitations: no limitations HENMT Head: Yes normal to inspection and Yes atraumatic Ears: hearing grossly normal bilaterally General nose exam: Normal external nose present Face and sinus: Yes normal facial exam Mouth: no drooling and no muffled voice Throat: Yes tonsils normal, Yes uvula midline, No peritonsillar mass, No uvula laterally displaced and Yes uvular edema Eyes General: appearance normal, both eyes and all related structures EOM: EOMs intact bilaterally Neck Neck: Yes normal visual inspection and Yes no meningeal signs Resp Effort & Inspection: normal respiratory effort and no respiratory distress Auscultation: clear to auscultation bilaterally and no wheezes Cardio Rate: regular rate Heart sounds: S1 normal heart sound present and S2 normal heart sound present GI Inspection: Yes normal to inspection Palpation (GI): Soft to palpation, Tenderness to palpation present (GI) in the RLQ; with no rebound tenderness, no guarding and not rigid General: Yes no CVA tenderness Back/Spine/Pelvis Back: no CVA tenderness Skin Rashes: no rashes Wounds: no wounds Neuro General: patient oriented x3, tone normal and no meningeal signs Cranial nerves: Yes CN's II-XII intact bilaterally Gait exam (Neuro): Normal gait present Extrem General: Yes normal to inspection Course Course Course Narrative: -1219--no leukocytosis. Chronic anemia. Labs otherwise reassuring.. UA unremarkable -viral testing negative CT abdomen pelvis w IV con IMPRESSION: Right lower quadrant inflammatory process possibly related to ileitis or enteritis. No drainable abscess collections. Fleischner guidelines were followed. > will give PO Augmentin & Decadron -Results discussed with patient including worrisome signs and symptoms and strict return precautions, and when to return to the emergency department. They verbalized understanding and feel safe for discharge at this time. Medications Administered Discontinued Medications Generic Name Dose Route Start Last Admin Trade Name Freq PRN Reason Stop Dose Admin Amoxicillin/Clavulanate Potassium 875 mg 10/16/23 12:00 10/16/23 12:45 Amoxicillin/Potassium Clav 875 Mg Tablet PO 10/16/23 12:01 875 mg ONCE ONE Administration Dexamethasone Sodium Phosphate 10 mg 10/16/23 12:00 10/16/23 12:44 Dexamethasone Sod Phosphate 10 Mg/Ml Vial IVPUSH 10/16/23 12:01 10 mg ONCE ONE Administration Sodium Chloride 500 mls @ 999 mls/hr 10/16/23 09:30 10/16/23 11:38 Ns IV 10/16/23 10:00 Infused .Q31M LATOSHA Infusion Iohexol 85 ml 10/16/23 11:11 10/16/23 11:11 Iohexol 350 Mg/Ml 100 Ml Infus..Btl IV 10/16/23 11:12 85 ml ONCE ONE Administration Medical Decision Making Medical Decision Making MDM Narrative: 48-year-old male with a past medical history of chronic GERD, cigarette smoking, 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 Garduno, presenting to the ED today complaining of sore throat, posterior oropharyngeal swelling, & brief nosebleed x this morning followed by coughing up blood. Also reports chronic right lower quadrant abdominal pain. On exam vital signs stable, NAD, nontoxic appearing physical exam as noted above. No active epistaxis. Uvular edema noted without deviation. Talking in complete sentences, no drooling, handling secretions, lungs CTA, abdomen soft with RLQ ttp, no rebound or guarding. Concern for viral illness/strep pharyngitis. No evidence of [employer]/retropharyngeal abscess. Concern for colitis/abscess formation or diverticulitis. Low suspicion for ACS/PE or malignancy Plan: Labs, UA, viral testing/CXR, CT AP, p.o. Decadron Please refer to course for remaining clinical decision making, interpretation of labs/imaging results, and discussions with consultants and/or family members. Differential Diagnosis Differential Diagnoses: The differential diagnosis associated with the presentation includes As above Admission/Observation Consideration of admission/observation: Escalation of care including admission/observation considered Lab Data [facility] Lab Attestation statement: I reviewed the patient's lab results. 10/16/23 11:43 10/16/23 10:32 Labs: Lab Results 10/16/23 10/16/23 10/16/23 Range/Units 09:54 10:32 11:43 WBC 7.9 (4.8-10.8) X10*3/uL RBC 3.93 L (4.60-5.80) X10*6/uL Hgb 9.1 L (14.0-18.0) g/dl Hct 30.9 L (42.0-52.0) % MCV 78.6 L (80.0-98.0) fL MCH 23.2 L (27.0-33.0) pg MCHC 29.4 L (31.0-36.0) g/dl RDW 20.3 H (11.0-16.0) % Plt Count 374 D (160-400) X10*3/uL MPV 8.9 L (9.4-12.4) fL Immature Gran % (Auto) 0.4 (0.0-0.4) % Neut % (Auto) 57.4 (45-73) % Lymph % (Auto) 33.0 (20-40) % [place] % (Auto) 6.9 (2-11) % Eos % (Auto) 1.8 (0-4) % Baso % (Auto) 0.5 (0-2) % Lymph # (Auto) 2.6 (1.2-4.9) X10*3/uL [place] # (Auto) 0.6 (0.1-1.2) X10*3/uL Eos # (Auto) 0.1 (0.0-0.4) X10*3/uL Baso # (Auto) 0.0 (0.0-0.2) X10*3/uL Abs Immat Gran (auto) 0.03 (0.00-0.03) X10*3/uL Absolute Neuts (auto) 4.6 (2.0-8.3) x10*3/uL Absolute Nucleated RBC 0.000 (0.0-0.012) X10*3/uL Nucleated RBC % (auto) 0.0 (0.0-0.2) /100WBC PT 11.8 (11.1-13.3) SEC INR 1.0 (0.9-1.1) Sodium 139 (135-145) mmol/L Potassium 4.3 (3.3-5.1) mmol/L Chloride 109 H (96-108) mmol/L Carbon Dioxide 26 (22-29) mmol/L Anion Gap 8 L (12-20) BUN 8 L (9-16) mg/dL Creatinine 0.68 (0.5-1.4) mg/dL Estim Creat Clear Calc 138.0 Estimated GFR > 60 Random Glucose 97 (60-115) mg/dL Calcium 9.2 (8.4-10.2) mg/dL Magnesium 2.1 (1.6-2.6) mg/dL Total Bilirubin 0.2 (0.0-1.0) mg/dL Direct Bilirubin < 0.2 (0.0-0.5) mg/dL AST 16 (5-37) U/L ALT 18 (0-40) U/L Alkaline Phosphatase 78 (39-117) U/L Total Protein 7.4 (6.5-8.0) g/dL Albumin 4.0 (3.5-5.0) g/dL Lipase 19 (8-78) U/L Urine Color Yellow Urine Appearance Clear Urine pH 5.5 (5.0-9.0) Ur Specific [place] 1.020 (1.005-1.025) Urine Protein Negative (Neg-Trace) mg/dL Urine Glucose (UA) Negative (Negative) mg/dL Urine Ketones Negative (Negative) mg/dL Urine Blood Negative (Negative) Urine Nitrite Negative (Negative) Ur Leukocyte Esterase Negative (Negative) COVID-19 (JOHN) Negative (Negative) COVID-19 Clin Com See Note Influenza Type A (PATTI) Negative (Negative) Influenza Type B (PATTI) Negative (Negative) Influenza A & B Note See Note Independent Interpretation I performed an independent interpretation of an: CT Scan Radiology Impression Discussion of test interpretation with radiology: I have reviewed the radiologist's reading. External Record Review External record reviewed: Inpatient record, Office record, Outpatient record, Prior outpatient labs, Prior outpatient radiology, Primary care record and Outside ED record Tests considered The following testing was considered but not selected: As above Prescription Management I considered prescription management with: Pain Medication and Antibiotic Chronic Conditions Patient?s care impacted by: Other Discharge Plan Discharge Clinical Impression: Uvular edema, Ileitis Patient Disposition: Home, Self-Care Instructions: Enteritis (ED) Additional Instructions: Your CT scan shows acute ileitis. Augmentin as an antibiotic please take as prescribed. Please call Dr. Garduno for close follow-up If pain persists or worsens you develop rectal bleeding or black stool return to the emergency department Your uvula is also inflamed, you are given an oral steroid If you feel like swelling worsens you develop any shortness of breath, difficulty or inability to swallow return to the ED immediately Please take Tylenol at home Prescriptions: New amoxicillin-pot clavulanate 875-125 mg tablet 1 tab PO BID 7 Days Qty: 14 0RF No Action rosuvastatin [Crestor] 20 mg tablet 20 mg PO DAILY Qty: 90 3RF aspirin 81 mg capsule 81 mg PO DAILY Qty: 30 3RF alum-mag hydroxide-simeth [Maalox Advanced] 200-200-20 mg/5 mL suspension 5 ml PO 5XD PRN (Reason: dyspepsia) Qty: 355 0RF Rx Instructions: administer between meals and at bedtime sucralfate 1 gram tablet 1 tab PO BEDTIME diclofenac sodium 1 % gel 2 g topical QID PRN (Reason: elbow pain ) Qty: 100 0RF Rx Instructions: apply to single elbow, wrist or hand; for hand includes palm/fingers/back of hand ketotifen fumarate [Allergy Eye (ketotifen)] 0.025 % (0.035 %) drops 1 drp ophthalmic (eye) BID Qty: 5 6RF Rx Instructions: administer at least 8 hours apart mesalamine [Apriso] 0.375 gram capsule,extended release 24hr 1.5 g PO QAM Qty: 120 2RF peg-electrolyte soln 420 gram recon soln 240 ml PO Q10M Qty: 4000 0RF Rx Instructions: until fecal effluent is clear; do not exceed a total volume of 2,000 mL Eliquis 5 mg tablet 5 mg PO BID pantoprazole 40 mg tablet,delayed release (DR/EC) 40 mg PO BID Referrals: [facility] [Provider Group] - 2 days Ngoc Fung MD [Primary Care Provider] - Stand Alone Forms: Work/School Release Interventions: ED Discharge Assessment Last Done: 10/16/23 12:47 Discharge Date/Time: 10/16/23 12:47
[2023-10-16] MEDS: dexAMETHasone sod phosphate 10 MG/ML VIAL IVPUSH (12:44)
[2023-10-16] MEDS: Amoxicillin/Potassium Clav 875 MG TABLET PO (12:45)
== END 2023-10-16 12:47 | disposition home or self-care (01) ==
PROVIDERS: Physician Assistant; Emergency Provider Emergency Medicine; PCP Internal Medicine
DX: K13.79 Other lesions of oral mucosa (principal); K52.9 Noninfective gastroenteritis and colitis, unspecified; J02.9 Acute pharyngitis, unspecified; R10.31 Right lower quadrant pain; D64.9 Anemia, unspecified; Z11.52 Encounter for screening for COVID-19; F17.210 Nicotine dependence, cigarettes, uncomplicated; Z79.01 Long term (current) use of anticoagulants; Z79.899 Other long term (current) drug therapy; Z79.02 Long term (current) use of antithrombotics/antiplatelets; Z79.82 Long term (current) use of aspirin
CPT/HCPCS: 36415; 74177; 80048; 80076; 81003; 83690; 83735; 85025; 85610; 87502; 87635; 96361; 96374; 99284; J1100; Q9967

== ENCOUNTER 2023-10-21 10:11 | Outpatient (REF) | payer OTHER, SELFPAY | END 2023-10-21 10:12 | disposition home or self-care (01) | LOC: HO.MDS 10:11 | PROVIDERS: Visit Provider Internal Medicine Gastroenterology | DX: D50.9 Iron deficiency anemia, unspecified (principal) | CPT/HCPCS: 96365; J1756 ==

== ENCOUNTER 2023-11-04 10:12 | Outpatient (REF) | payer OTHER, SELFPAY | END 2023-11-04 10:13 | disposition home or self-care (01) | LOC: HO.MDS 10:12 | PROVIDERS: Visit Provider Internal Medicine Gastroenterology | DX: D50.9 Iron deficiency anemia, unspecified (principal) | CPT/HCPCS: 96365; J1756 ==

== ENCOUNTER 2023-11-18 11:05 | Outpatient (REF) | payer OTHER, SELFPAY ==
[2023-11-18 11:09] VITALS: BP 119/69; PULSE 73; RESP 18; TEMP 36.6
[2023-11-18] MEDS: Iron Sucrose Complex 200 MG in 0.9 % Sodium Chloride 100 ML 440 MG IV (11:18)
== END 2023-11-18 11:06 | disposition home or self-care (01) ==
LOC: HO.MDS 11:05
PROVIDERS: Visit Provider Internal Medicine Gastroenterology
DX: D50.9 Iron deficiency anemia, unspecified (principal)
CPT/HCPCS: 96365; J1756

== ENCOUNTER 2023-11-28 08:58 | Outpatient (AMB) | payer OTHER, SELFPAY ==
[2023-11-28 09:26] VITALS: BP 120/70; PULSE 74; O2SAT 97; BMI 22.2
--- NOTE | 2023-11-28 09:26 | A.OFFPC_ITS ---
<Statement entered by Ngoc Fung MD - 01/19/25 15:28> This note has been administratively?closed. Vital Signs 11/28/23 09:26 Height 6 ft Weight 164 lb BMI 22.2 BP 120/70 Blood Pressure Location Rt brachial Position Sitting Pulse 74 Pulse Source Pulse Oximeter Pulse Oximetry (%) 97 Oxygen Delivery Method Room Air Intake Visit Reasons: HDF Heart Stents Intake Note: Pt is here today for his HDF stents: [facility] Allergies No Known Allergies Allergy (Verified 03/10/24 15:36) Medication List - Last Reconciled 03/10/24 by Ngoc Fung MD alum-mag hydroxide-simeth 200-200-20 mg/5 mL (Maalox Advanced) 5 mL PO 5XD PRN apixaban (Eliquis) 5 mg PO BID aspirin 81 mg PO DAILY diclofenac sodium 1% 2 grams topical QID PRN enoxaparin (Lovenox) 60 mg (0.6 mL) subcut Q12H ferrous sulfate 324 mg PO DAILY ketotifen fumarate 0.025%(0.035%) (Allergy Eye (ketotifen)) 1 drp ophthalmic (eye) BID mesalamine ER (Apriso) 1.5 grams (4 x 0.375 gram) PO QAM ondansetron 4 mg PO Q8H PRN pantoprazole 40 mg PO DAILY rosuvastatin (Crestor) 20 mg PO DAILY sucralfate (Carafate) 10 mL PO BID Tobacco use date assessed: 11/28/23 Dental Screening Dental Screen Date: 11/28/23 Did you have a dental visit in the last 12 months?: No Was dental information given to patient?: Patient has dentist HPI HDF Heart Stents HPI Details 48 year old male with a past medical hi story of chronic GERD, former cigarette smoker, with 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 He was maintained on Eliquis 5 mg twice a day and aspirin 81 mg daily, pantoprazole 40 mgBID. He had EGD done 08/15/2023 which showed 2 AVMs in stomach, large ulceration at site of intestinal as anastomosis with friable mucosa and evidence of recent bleed He was seen at the ER 10/16/23 complaining of sore throat, posterior oropharyngeal swelling, & brief nosebleed x this morning followed by coughing up blood. Also reports chronic right lower quadrant abdominal pain. Denies fever/chills, ear pain, difficulty or inability to swallow, SOB/CP, vomiting, diarrhea, melena, brbpr. CT of abdomen and pelvis w/ IV showed right lower quadrant inflammatory process possibly related to ileitis or enteritis, . no drainable abscess collections. Labs done showed no leukocytosis, chronic anemia. UA unremarkable, and viral testing negative. He was placed on Augmentin and Decadron with improvement of symptoms. [facility] Medical History CAD (coronary artery disease) Hyperlipidemia Iron deficiency anemia Anemia Superior mesenteric artery stenosis Celiac artery stenosis Vaccine refused by patient (~09/05/23) Cigar smoker unmotivated to quit Chronic vascular insufficiency of intestine Impaired fasting glucose Diarrhea Granular cell tumor Chronic GERD Surgical History H/O heart artery stent History of esophagogastroduodenoscopy (EGD) Hx of colectomy Hx of appendectomy Hx of colonoscopy Family History Maternal Aunt No problems noted. Maternal Aunt No problems noted. Social History Household Members: Spouse Housing: Apartment Do you presently have visiting nurse or other home services: No Patient Tobacco Use Status: Former Tobacco user Tobacco use type: Cigarette and Cigar Cigarettes Per Day: 2 Years Smoked: 3 e-Cigarette/Vaping Use: Never Used service: No Current occupational status: employed Cognitive needs: No Hearing needs: No Vision needs: No Questionnaire PHQ-9 Over the last 2 weeks, how often have you been bothered by any of the following problems? 1. Little interest or pleasure in doing things: not at all 2. Feeling down, depressed, or hopeless: several days 3. Trouble falling or staying asleep, or sleeping too much: several days 4. Feeling tired or having little energy: several days 5. Poor appetite or overeating: several days 6. Feeling bad about yourself - or that you are a failure or have let yourself or your family down: not at all 7. Trouble concentrating on things, such as reading the newspaper or watching television: not at all 8. Moving or speaking so slowly that other people could have noticed. Or the opposite - being so fidgety or restless that you have been moving around a lot more than usual: not at all 9. Thoughts that you would be better off or of hurting yourself in some way: not at all Total score: 4 Depression Screening Interpretation: Negative Depression Screening Done: Yes Source: Developed by Drs. Greg Hernandez, Whitley Park, Dustin Ann and colleagues, with an educational hans from [employer]. Thrive Questionnaire Date Thrive assessed: 11/28/23 I am a: Patient What is your living situation today?: I have a steady place to live Within the past 12 months, did the food you bought not last and you didn't have the money to get more?: Often true Within the past 12 months, did you worry whether your food would run out before you got money to buy more?: Often true Do you have trouble paying for medicines?: No Do you have trouble getting transportation to medical appointments?: No Do you have trouble paying your heating and electricity bill?: Yes Do you have trouble taking care of your child, family member or friend?: No Do you have trouble with day-to-day activities such as bathing, preparing meals, shopping, managing finances, etc.?: Yes Are you currently unemployed and looking for a job?: Yes Are you interested in more education?: Yes THRIVE Score: 3 AUDIT C Alcohol Use Questionnaire (AUDIT-C) 1. How often do you have a drink containing alcohol?: Never Total Score: 0 KAMILA-7 AMB Questionnaire KAMILA-7 Date KAMILA - 7 assessed: 11/28/23 Feeling nervous, anxious, or on edge: 1 = Several days Not being able to stop or control worryin = Several days Worrying too much about different things: 1 = Several days Trouble relaxin = Not at all Being so restless that it is hard to sit still: 0 = Not at all Becoming easily annoyed or irritable: 1 = Several days Feeling afraid as if something awful might happen: 1 = Several days Total KAMILA-7 score (0-4 normal; 5-9 mild; 10-14 moderate; 15-21 severe): 5 Source: Developed by Drs. Greg Hernandez, Whitley Park, Dustin Ann and colleagues, with an educational hans from [employer]. KAMILA-7 Assessment Billing KAMILA-7 Assessment Tool: KAMILA-7 Assessment 84937 Review of Systems Const Denies body aches, Denies chills, Reports fatigue, Denies fever(s), Denies headache(s) and Reports poor appetite Eyes Reports no additional complaints ENT Denies dysphagia, Denies dizziness, Denies headache(s), Denies mouth pain, Denies nasal congestion, Denies post nasal drip and Denies throat swelling Card Denies chest pain, Denies irregular heart rhythm, Denies lightheadedness and Denies dyspnea on exertion Resp Denies cough, Denies dyspnea on exertion and Denies wheezing GI Denies melena, Denies bloating, Denies hematochezia, Denies constipation, Denies dysphagia, Denies excessive flatus, Denies early satiety, Reports heartburn and Denies diarrhea Reports no additional complaints Musc Reports no additional complaints Neuro Reports no additional complaints, Denies dizziness and Denies headache(s) Psych Reports change in appetite and Reports mood swings Endo Reports no additional complaints and Reports fatigue Yared/Lymph Reports no additional complaints Aller/Immun Denies throat swelling and Denies wheezing Physical exam (Primary Care) Vital Signs: Last Vital Signs Pulse 74 11/28/23 09:26 BP 120/70 11/28/23 09:26 Pulse Ox 97 11/28/23 09:26 Oxygen Delivery Method Room Air 11/28/23 09:26 BMI result Body Mass Index 22.2 Tobacco/Smoking Status: Tobacco use Status Tobacco use date assessed 11/28/23 11/28/23 09:47 Patient Tobacco Use Status Former Tobacco user 11/28/23 09:47 Tobacco use type Cigarette,Cigar 11/28/23 09:30 e-Cigarette/Vaping Use Never Used 11/28/23 09:30 PHQ-9: PHQ-9 Score PHQ-9: Total score 22 11/28/23 10:32 Depression Screening Interpretation: Negative Thrive Assessment: Date of Thrive Assessment Date Thrive assessed 11/28/23 11/28/23 09:30 Assessment and Plan Assessment & Plan (1) Chronic vascular insufficiency of intestine: Code(s): K55.1 - Chronic vascular disorders of intestine (2) Iron deficiency anemia: Code(s): D50.9 - Iron deficiency anemia, unspecified (3) Hyperlipidemia: Code(s): E78.5 - Hyperlipidemia, unspecified Orders: Orders Complete Blood Count Auto Diff 11/28/23 K55.1 - Chronic vascular disorders of intestine, D50.9 - Iron deficiency anemia, unspecified, E78.5 - Hyperlipidemia, unspecified IRON PROFILE 11/28/23 K55.1 - Chronic vascular disorders of intestine, D50.9 - Iron deficiency anemia, unspecified, E78.5 - Hyperlipidemia, unspecified Lipid Panel 11/28/23 K55.1 - Chronic vascular disorders of intestine, D50.9 - Iron deficiency anemia, unspecified, E78.5 - Hyperlipidemia, unspecified Aspartate Amino Transferase 11/28/23 K55.1 - Chronic vascular disorders of intestine, D50.9 - Iron deficiency anemia, unspecified, E78.5 - Hyperlipidemia, unspecified Vitamin B12 and Folate 11/28/23 K55.1 - Chronic vascular disorders of intestine, D50.9 - Iron deficiency anemia, unspecified, E78.5 - Hyperlipidemia, unspecified Vitamin D 25-OH Total 11/28/23 K55.1 - Chronic vascular disorders of intestine, D50.9 - Iron deficiency anemia, unspecified, E78.5 - Hyperlipidemia, unspecified Alanine Aminotransferase 11/28/23 K55.1 - Chronic vascular disorders of intestine, D50.9 - Iron deficiency anemia, unspecified, E78.5 - Hyperlipidemia, unspecified Coding Level of Care Code Est Pt Level 4 (95492) Complex EM visit Add On G2211 Diagnoses Chronic vascular insufficiency of intestine K55.1 Iron deficiency anemia D50.9 Hyperlipidemia E78.5 Additional Codes KAMILA-7 Assessment Billing - KAMILA-7 Assessment Tool: KAMILA-7 Assessment 55302 ([id number])
== END 2023-11-28 11:12 | disposition home or self-care (01) ==
PROVIDERS: PCP Internal Medicine; Visit Provider Internal Medicine
DX: K55.1 Chronic vascular disorders of intestine (principal); D50.9 Iron deficiency anemia, unspecified; E78.5 Hyperlipidemia, unspecified
CPT/HCPCS: 99499

== ENCOUNTER → 2024-01-30 09:25 | Outpatient (BNVA) | payer OTHER, SELFPAY | PROVIDERS: PCP Internal Medicine; Visit Provider Internal Medicine Gastroenterology ==

== ENCOUNTER 2024-01-30 09:44 | Emergency (ER) | payer OTHER, SELFPAY ==
--- NOTE | ~2024-01-30 | CT_ITS ---
EXAMINATION: CT ANGIOGRAM ABDOMEN AND PELVIS CLINICAL INFORMATION: History of celiac/SMA COMPARISON: CTA abdomen and pelvis 10/16/23 TECHNIQUE: Multiple axial images were obtained through the abdomen and pelvis following the administration of 100 mL of Omnipaque 350 intravenous contrast. Images were reviewed on a dedicated 3-D workstation. This CT examination was performed using dose optimization techniques as appropriate, variously including the following: *Automated exposure control *Adjustment of mA and/or kV according to patient size (this includes techniques or standardized protocols for targeted exams where dose is matched to indication/reason for exam; i.e. extremities or head) *Use of iterative reconstruction technique DLP: 375 mGy-cm FINDINGS: FINDINGS: VASCULAR: ABDOMINAL AORTA: The abdominal aorta is normal in caliber. There is moderate atherosclerotic disease. RIGHT ILIAC ARTERY: Patent LEFT ILIAC ARTERY: Patent CELIOMESENTERIC ARTERIES: The SMA stent has moderate in-stent stenosis but is otherwise patent. The origin of the celiac artery is occluded and there is reconstitution via the GDA. RENAL ARTERIES: The single bilateral renal arteries are patent. NONVASCULAR: Lung Bases: The visualized lung bases are unremarkable. Liver, Gallbladder and Biliary Tree: The liver is normal in size, shape, and attenuation. No focal hepatic lesion or biliary ductal dilatation is present. The gallbladder is unremarkable with no evidence of radiopaque gallstones, gallbladder wall thickening, or obvious pericholecystic inflammatory changes. Pancreas: Unremarkable. Spleen: Unremarkable. Adrenal Glands: Unremarkable. Kidneys and Ureters: The kidneys are normal in size, shape, and attenuation. No hydronephrosis, hydroureter, or calculi seen. No perinephric stranding. Bladder: Unremarkable. Gastrointestinal Tract: The small and large bowel are unremarkable. Colonic diverticulosis is noted. Post surgical changes in the right lower quadrant. Abdominal Wall: No significant hernia is appreciated. Lymph Nodes: Normal. Pelvic Viscera: Unremarkable. Osseous Structures: Unremarkable. CT/CT angio abdomen pelvis IMPRESSION: 1. 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 2. Moderate in-stent stenosis of the SMA stent. Fleischner guidelines were followed.
[2024-01-30 09:48] VITALS: BP 144/70; PULSE 66; RESP 20; TEMP 36.6; O2SAT 100; BMI 22.9
--- NOTE | 2024-01-30 10:07 | ECG_ITS ---
Test Reason : cp Blood Pressure : / mmHG Vent. Rate : 063 BPM Atrial Rate : 063 BPM P-R Int : 132 ms QRS Dur : 086 ms QT Int : 354 ms P-R-T Axes : 057 038 014 degrees QTc Int : 362 ms Normal sinus rhythm Normal ECG When compared with ECG of 01-SEP-2023 12:11, QRS duration has decreased Referred By: Claudine Murray Electronically Signed By:VINAY HER MD
--- NOTE | 2024-01-30 10:16 | ED.ABDPAIN ---
HPI - Abdominal Pain General Chief Complaint: Abdominal Pain Stated Complaint: HBP/Abd pain Time Seen by Provider: 01/30/24 10:06 Source: patient and old records reviewed Mode of arrival: ambulatory Limitations: no limitations History of Present Illness HPI narrative: 48 yo male with PMH of HLD, anemia, celiac artery angioplasty 2022, SMA stent 2022 currently on lovenox injection did dose this AM here with c/o abrupt onset abdominal pain at 8am today then proceeded to have n/v. He also saw blood in his stool this AM which Dr. Garduno is planning colonoscopy for on Friday just had positive pill study. He is worried his stent occluded at it reminds him of this. MD elicited complaint: abdominal pain Pertinent past history: other (mesenteric artery ds) Onset (ago): day(s) (8am today) Pain Consistency: constant Location: epigastric Severity: severe Quality: sharp Radiation: none Migration to: no migration Exacerbating factors: movement Relieving factors: nothing Context: history of similar episodes Associated symptoms: nausea, vomiting and hematochezia Related Data Home Medications ?Medication ?Instructions ?Recorded ?Confirmed sucralfate 1 gram tablet 1 tab PO BEDTIME 06/02/22 07/23/22 apixaban 5 mg tablet (Eliquis) 5 mg PO BID 10/10/23 pantoprazole 40 mg tablet,delayed 40 mg PO BID 10/10/23 release Previous Rx's ?Medication ?Instructions ?Recorded diclofenac sodium 1 % topical gel 2 g topical QID PRN elbow pain 11/29/21 #100 grams ketotifen fumarate 0.025 % (0.035 1 drp ophthalmic (eye) BID #5 mL 03/01/22 %) eye drops (Allergy Eye (ketotifen)) aluminum-mag hydroxide-simethicone 5 ml PO 5XD PRN dyspepsia #355 mL 10/29/22 200 mg-200 mg-20 mg/5 mL oral susp (Maalox Advanced) rosuvastatin 20 mg tablet (Crestor) 20 mg PO DAILY #90 tabs 03/01/23 peg-electrolyte solution 420 gram 240 ml PO Q10M #4,000 mL 09/05/23 oral solution aspirin 81 mg capsule 81 mg PO DAILY #30 caps 10/16/23 mesalamine 0.375 gram 1.5 g (4 x 0.375 gram) PO QAM #360 12/08/23 capsule,extended release 24 hr caps (Apriso) enoxaparin 60 mg/0.6 mL 60 mg (0.6 mL) subcut Q12H #6 mL 01/20/24 subcutaneous syringe (Lovenox) ondansetron 4 mg disintegrating 4 mg PO Q8H PRN nausea and 01/30/24 tablet vomiting #20 tabs Allergies Allergy/AdvReac Type Severity Reaction Status Date / Time No Known Allergies Allergy Verified 01/30/24 09:52 Review of Systems Review of Systems Constitutional : No Weight loss, No Fever, No Chills ENT/Mouth : No sore throat, No Rhinorrhea Eyes: No Swelling, No Redness Cardiovascular : No Chest Pain, No SOB, NoEdema Respiratory : No Cough, No Sputum, No Wheezing Gastrointestinal : Positive Nausea, Positive Vomiting, no Diarrhea, positive abdominal Pain, pos Hematochezia, No Melena Genitourinary : No Dysuria, No Urinary Frequency, No Hematuria, No Urgency Musculoskeletal : No joint pain, No Myalgias, No Joint Swelling Skin : No Skin Lesions, No rash Neuro : No Weakness, No Numbness, No Dizziness, No Headache Psych : No Anxiety/Panic, No Depression All other systems reviewed and are negative. [facility] Past Medical History Attestation statement: The following information was validated with the patient. Source: old records reviewed Medical History Hyperlipidemia Iron deficiency anemia Anemia Superior mesenteric artery stenosis Celiac artery stenosis Vaccine refused by patient (~09/05/23) Cigar smoker unmotivated to quit Chronic vascular insufficiency of intestine Impaired fasting glucose Diarrhea Granular cell tumor Chronic GERD Surgical History History of esophagogastroduodenoscopy (EGD) Hx of colectomy Hx of appendectomy Hx of colonoscopy Family History Family History Maternal Aunt No problems noted. Maternal Aunt No problems noted. Social History Social History Household Members: Spouse Housing: Apartment Do you presently have visiting nurse or other home services: No Patient Tobacco Use Status: Former Tobacco user Tobacco use type: Cigarette and Cigar Cigarettes Per Day: 2 Years Smoked: 3 e-Cigarette/Vaping Use: Never Used service: No Current occupational status: employed Cognitive needs: No Hearing needs: No Vision needs: No Physical Exam ED Vital Signs: Vital Signs - 24 hr 01/30/24 09:48 01/30/24 12:45 Temperature 97.9 F 98.1 F Pulse Rate 66 59 Respiratory Rate 20 12 Blood Pressure 144/70 H 110/65 Pulse Oximetry 100 100 Oxygen Delivery Method Room Air Room Air BMI result Body Mass Index 22.9 Appearance: Alert. Oriented X3. active vomiting mild acute distress. Eyes: Pupils equal, round and reactive to light. ENT: Pharynx normal. Neck: Normal inspection. Neck supple. CVS: Normal heart rate and rhythm. Pulses normal. Respiratory: No respiratory distress. Breath sounds normal. Abdomen: Soft and moderate epigastric pain no distention Skin: Skin warm and dry. Normal skin color. Normal skin turgor. Extremities: No lower extremity edema. Neuro: Oriented X 3. No motor deficit. No sensory deficit. Course Course Course Narrative: no pain after one dose of IV dilaudid after 4 hours highly unlikely to be ischemic gut with normal lactic acidosis. Medical Decision Making Medical Decision Making [facility] Narrative: 48 yo male with PMH of HLD, anemia, celiac artery angioplasty 2022, SMA stent 2022 currently on lovenox injection did dose this AM here with c/o upper abdominal pain n/v one episode of bloody stool this AM at this time labs, CT angio ordered, IV dilaudid and fluids ordered. Has had bloody stools Dr. Garduno is working him up on Friday with colonoscopy just had pill study Differential Diagnosis Differential Diagnoses: The differential diagnosis associated with the presentation includes gastritis, pancreatitis, occlusion, seems atypical for ACS given prior history and similar episodes related to his stent he did already dose with his lovenox 60mg this AM Admission/Observation Consideration of admission/observation: Escalation of care including admission/observation considered vessels are patent - H/H stable, SMA stenosis but patent and celiac has distal reconstitution no pain after one dose of IV pain medications, negative lactic acid feels well and states he can go home Consult Healthcare Provider Management of the patient was discussed with: [employer] (discussed with Dr. Ortiz aware states read is stable there is flow) Lab Data [facility] Lab Attestation statement: I reviewed the patient's lab results. 01/30/24 10:42 01/30/24 10:42 Labs: Lab Results 01/30/24 01/30/24 Range/Units 10:42 13:20 WBC 5.5 (4.8-10.8) X10*3/uL RBC 5.00 D (4.60-5.80) X10*6/uL Hgb 13.6 L D (14.0-18.0) g/dl Hct 42.0 D (42.0-52.0) % MCV 84.0 (80.0-98.0) fL MCH 27.2 (27.0-33.0) pg MCHC 32.4 (31.0-36.0) g/dl RDW 20.6 H (11.0-16.0) % Plt Count 298 (160-400) X10*3/uL MPV 9.2 L (9.4-12.4) fL Immature Gran % (Auto) 0.4 (0.0-0.4) % Neut % (Auto) 61.9 (45-73) % Lymph % (Auto) 24.9 (20-40) % [place] % (Auto) 10.6 (2-11) % Eos % (Auto) 1.5 (0-4) % Baso % (Auto) 0.7 (0-2) % Lymph # (Auto) 1.4 (1.2-4.9) X10*3/uL [place] # (Auto) 0.6 (0.1-1.2) X10*3/uL Eos # (Auto) 0.1 (0.0-0.4) X10*3/uL Baso # (Auto) 0.0 (0.0-0.2) X10*3/uL Abs Immat Gran (auto) 0.02 (0.00-0.03) X10*3/uL Absolute Neuts (auto) 3.4 (2.0-8.3) x10*3/uL Absolute Nucleated RBC 0.000 (0.0-0.012) X10*3/uL Nucleated RBC % (auto) 0.0 (0.0-0.2) /100WBC Sodium 137 (135-145) mmol/L Potassium 5.0 (3.3-5.1) mmol/L Chloride 105 (96-108) mmol/L Carbon Dioxide 23 (22-29) mmol/L Anion Gap 14 (12-20) BUN 8 L (9-16) mg/dL Creatinine 0.84 (0.5-1.4) mg/dL Estim Creat Clear Calc 116.6 Estimated GFR > 60 Random Glucose 136 H (60-115) mg/dL Lactic Acid 1.4 (0.5-2.0) mmol/L Calcium 9.8 D (8.4-10.2) mg/dL Magnesium 1.9 (1.6-2.6) mg/dL Total Bilirubin 0.6 (0.0-1.0) mg/dL Direct Bilirubin 0.1 (0.0-0.5) mg/dL AST 24 (5-37) U/L ALT 17 (0-40) U/L Alkaline Phosphatase 79 (39-117) U/L Troponin I High Sens < 2.7 (<3.5-35.0) ng/L Total Protein 8.3 H (6.5-8.0) g/dL Albumin 4.4 (3.5-5.0) g/dL Lipase 52 (8-78) U/L Urine Color Yellow Urine Appearance Clear Urine pH 5.5 (5.0-9.0) Ur Specific [place] >= 1.030 H (1.005-1.025) Urine Protein Negative (Neg-Trace) mg/dL Urine Glucose (UA) Negative (Negative) mg/dL Urine Ketones Negative (Negative) mg/dL Urine Blood Negative (Negative) Urine Nitrite Negative (Negative) Ur Leukocyte Esterase Negative (Negative) Independent Interpretation I performed an independent interpretation of an: EKG and CT Scan (no acute occlusion) Interpretation: Rate: 63 Rhythm: NSR [place]: normal Normal P waves. Normal ANUSHA. Normal QRS complex. ST T wave : inverted t wave V1-V2, III, no SHERRY qTC: 362 prior studies: no acute ischemia The study has been interpreted contemporaneously by me. . Radiology Impression Discussion of test interpretation with radiology: I have reviewed the radiologist's reading. External Record Review External record reviewed: Inpatient record Prescription Management I considered prescription management with: Other Medications Administered Discontinued Medications Generic Name Dose Route Start Last Admin Trade Name Freq PRN Reason Stop Dose Admin Hydromorphone HCl 1 mg 01/30/24 10:20 01/30/24 10:50 Hydromorphone Hcl 1 Mg/Ml Syringe IVPUSH 01/30/24 10:21 1 mg ONCE ONE Administration Protocol Sodium Chloride 1,000 mls @ 999 mls/hr 01/30/24 10:20 01/30/24 12:45 Ns IV 01/30/24 11:20 Infused .Q1H1M ONE Infusion Iohexol 100 ml 01/30/24 11:50 01/30/24 11:51 Iohexol 350 Mg/Ml 100 Ml Infus..Btl IV 01/30/24 11:51 80 ml ONCE ONE Administration Ondansetron HCl 4 mg 01/30/24 10:20 01/30/24 10:48 Ondansetron Hcl 4 Mg/2 Ml Vial IVPUSH 01/30/24 10:21 4 mg ONCE ONE Administration Critical Care Time Critical Care Time Critical Care Time: Yes Total Critical Care Time: 35 Attestation: pain improved with IV dilaudid, review of records, med consult I attest to this time spent taking care of the patient Discharge Plan Discharge Clinical Impression: Abdominal pain Qualifiers: Abdominal location: periumbilical Qualified Code(s): R10.33 - Periumbilical pain Patient Disposition: Home, Self-Care Instructions: Abdominal Pain (ED) Additional Instructions: CT scan shows patent areas - please follow up with your [facility] provider return for any worsening symptoms or concerns - return of pain, unable to eat or drink, increase in bloody stools, fainting or any other concerns. Prescriptions: New ondansetron 4 mg tablet,disintegrating 4 mg PO Q8H PRN (Reason: nausea and vomiting) Qty: 20 0RF No Action rosuvastatin [Crestor] 20 mg tablet 20 mg PO DAILY Qty: 90 3RF aspirin 81 mg capsule 81 mg PO DAILY Qty: 30 3RF mesalamine [Apriso] 0.375 gram capsule,extended release 24hr 1.5 g PO QAM Qty: 360 0RF enoxaparin [Lovenox] 60 mg/0.6 mL syringe 60 mg subcut Q12H Qty: 6 0RF Rx Instructions: lovenox bridging, commence 3 days before endoscopy and stop eliquis alum-mag hydroxide-simeth [Maalox Advanced] 200-200-20 mg/5 mL suspension 5 ml PO 5XD PRN (Reason: dyspepsia) Qty: 355 0RF Rx Instructions: administer between meals and at bedtime sucralfate 1 gram tablet 1 tab PO BEDTIME diclofenac sodium 1 % gel 2 g topical QID PRN (Reason: elbow pain ) Qty: 100 0RF Rx Instructions: apply to single elbow, wrist or hand; for hand includes palm/fingers/back of hand ketotifen fumarate [Allergy Eye (ketotifen)] 0.025 % (0.035 %) drops 1 drp ophthalmic (eye) BID Qty: 5 6RF Rx Instructions: administer at least 8 hours apart peg-electrolyte soln 420 gram recon soln 240 ml PO Q10M Qty: 4000 0RF Rx Instructions: until fecal effluent is clear; do not exceed a total volume of 2,000 mL Eliquis 5 mg tablet 5 mg PO BID pantoprazole 40 mg tablet,delayed release (DR/EC) 40 mg PO BID Print Language: Ghanaian
[2024-01-30 10:48] LABS: MANUAL DIFF FLAG NO
[2024-01-30] MEDS: ondansetron HCL 4 MG/2 ML VIAL IVPUSH (10:48)
[2024-01-30] MEDS: 0.9 % Sodium Chloride 1,000 ML 999 ML IV (10:49)
[2024-01-30] MEDS: HYDROmorphone HCl 1 MG/ML SYRINGE IVPUSH (10:50)
[2024-01-30 10:51] LABS: Basophils Percent Auto 0.7 % (0-2); Eosinophils Absolute Auto 0.1 X10*3/uL (0.0-0.4); Eosinophils Percent Auto 1.5 % (0-4); Hemoglobin 13.6 g/dl (14.0-18.0); Imm Gran Abs Auto 0.02 X10*3/uL (0.00-0.03); Imm Gran Pct Auto 0.4 % (0.0-0.4); Lymphocytes Absolute Auto 1.4 X10*3/uL (1.2-4.9); Lymphocytes Percent Auto 24.9 % (20-40); Mean Corpuscular HGB Conc 32.4 g/dl (31.0-36.0); Mean Corpuscular Hemoglobin 27.2 pg (27.0-33.0); Mean Platelet Volume 9.2 fL (9.4-12.4); Monocytes Absolute Auto 0.6 X10*3/uL (0.1-1.2); Monocytes Percent Auto 10.6 % (2-11); Neutrophils Absolute Auto 3.4 x10*3/uL (2.0-8.3); Neutrophils Percent Auto 61.9 % (45-73); Platelet Count 298 X10*3/uL (160-400); Red Cell Distribution Width 20.6 % (11.0-16.0); White Blood Count 5.5 X10*3/uL (4.8-10.8)
[2024-01-30 11:05] LABS: Lactic Acid 1.4 mmol/L (0.5-2.0)
[2024-01-30 11:15] LABS: Alanine Aminotransferase 17 U/L (0-40); Albumin Level 4.4 g/dL (3.5-5.0); Alkaline Phosphatase 79 U/L (39-117); Anion Gap 14 (12-20); Aspartate Amino Transferase 24 U/L (5-37); Bilirubin Direct 0.1 mg/dL (0.0-0.5); Bilirubin Total 0.6 mg/dL (0.0-1.0); Blood Urea Nitrogen 8 mg/dL (9-16); Calcium 9.8 mg/dL (8.4-10.2); Carbon Dioxide 23 mmol/L (22-29); Chloride 105 mmol/L (96-108); Creatinine Clr Calc Pharmacy 116.6; Estimated Glomerular Filt Rate > 60; Glucose Random 136 mg/dL (60-115); Lipase 52 U/L (8-78); Magnesium 1.9 mg/dL (1.6-2.6); Sodium 137 mmol/L (135-145); Total Protein 8.3 g/dL (6.5-8.0)
[2024-01-30 11:16] LABS: Troponin-I High Sensitivity < 2.7 ng/L (<3.5-35.0)
[2024-01-30] MEDS: iohexoL 350 MG/ML 100 ML INFUS..BTL IV (11:51)
[2024-01-30 12:45] VITALS: BP 110/65; PULSE 59; RESP 12; TEMP 36.7; O2SAT 100
--- NOTE | 2024-01-30 12:47 | PC.NURSE ---
reporting improvement with nausea/vomiting after medication. states his pain has improved. remains alert and oriented with even and unlabored respirations
[2024-01-30 13:28] LABS: Appearance Urine Clear; Color Urine Yellow; Glucose Urine UA Negative (Negative); Leukocyte Esterase Urine Negative (Negative); Nitrite Urine Negative (Negative); PH 5.5 (5.0-9.0); Specific Gravity - Urine >= 1.030 (1.005-1.025); Urine Blood Negative (Negative); Urine Ketones Negative (Negative); Urine Protein Negative (Neg-Trace)
== END 2024-01-30 17:01 | disposition home or self-care (01) ==
PROVIDERS: Emergency Provider Emergency Medicine; PCP Internal Medicine
DX: R10.33 Periumbilical pain (principal); K92.1 Melena; R11.2 Nausea with vomiting, unspecified; D64.9 Anemia, unspecified; Z79.899 Other long term (current) drug therapy
CPT/HCPCS: 36415; 74174; 80048; 80076; 81003; 83605; 83690; 83735; 84484; 85025; 93005; 96361; 96374; 96375; 99284; 99285; J1170; J2405; Q9967

== ENCOUNTER → 2024-01-30 10:07 | Outpatient (BNV) | payer OTHER, SELFPAY | PROVIDERS: Emergency Provider Emergency Medicine; PCP Internal Medicine; Visit Provider Internal Medicine Cardiovascular Disease | DX: R07.9 Chest pain, unspecified (principal) | CPT/HCPCS: 93010 ==

== ENCOUNTER 2024-02-02 12:18 | Day surgery (SDC) | payer OTHER, SELFPAY ==
[2023-10-31 13:55] VITALS: BMI 22.1
--- NOTE | 2024-01-30 13:03 | HO.ANESPROP2 ---
Documented by User: Katlin Vyas NP 01/30/24 13:10 HPI - Anesthesia Eval Consult details Narrative: 48yo M for Push Enteroscopy Balloon Dilation, Upper Endo with APC Mesenteric ischemia s/p celiac artery angioplasty 2022, SMA stent 2022. On Eliquis with lovenox bridge for this procedure. Follows with [facility] vascular. s/p ex-lap 07/2023 for ischemic bowel Last vascular office visit note requested, but unavailable at time of chart review. Pt noted to be in [facility] at time of chart review with abdominal pain and bloody stool PMFSH Active Problems Active Problems: All Active Problems Hyperlipidemia (Acute) Iron deficiency anemia (Acute) IBD (inflammatory bowel disease) (Acute) Allergic conjunctivitis (Acute) Vaccine refused by patient (Acute ~09/05/23) Cigar smoker unmotivated to quit (Acute) Chronic vascular insufficiency of intestine (Acute) Impaired fasting glucose (Acute) Past Medical History Medical History (Updated 02/02/24 @ 12:44 by Cinthya Palumbo RN) CAD (coronary artery disease) Hyperlipidemia Iron deficiency anemia Anemia Superior mesenteric artery stenosis Celiac artery stenosis Vaccine refused by patient (~09/05/23) Cigar smoker unmotivated to quit Chronic vascular insufficiency of intestine Impaired fasting glucose Diarrhea Granular cell tumor Chronic GERD Family History Family History Maternal Aunt No problems noted. Maternal Aunt No problems noted. Family history of problems with anesthesia: No Surgical History Surgical History (Updated 02/02/24 @ 12:43 by Cinthya Palumbo RN) H/O heart artery stent History of esophagogastroduodenoscopy (EGD) Hx of colectomy Hx of appendectomy Hx of colonoscopy History of Problems with Anesthesia: No Social History Social History Household Members: Spouse Housing: Apartment Do you presently have visiting nurse or other home services: No Patient Tobacco Use Status: Former Tobacco user Tobacco use type: Cigarette and Cigar Cigarettes Per Day: 2 Years Smoked: 3 e-Cigarette/Vaping Use: Never Used Are you DNR?: No Advance Directives: No Advance Directives Information Provided: Yes Nutrition Risks: No Nutritional Risk service: No Current occupational status: employed Cognitive needs: No Hearing needs: No Vision needs: No Meds Allergies Allergy/AdvReac Type Severity Reaction Status Date / Time No Known Allergies Allergy Verified 01/30/24 09:52 Home Medications ?Medication ?Instructions ?Recorded ?Confirmed ?Last Taken ?Type sucralfate 1 gram tablet 1 tab PO BEDTIME 06/02/22 07/23/22 07/23/22 09:00 History apixaban 5 mg tablet (Eliquis) 5 mg PO BID 10/10/23 01/29/24 History pantoprazole 40 mg tablet,delayed 40 mg PO BID 10/10/23 Unknown History release Exam Height,Weight and Vital Signs: Height 6 ft Weight 73.936 kg Assessment and Plan Final Anesthetic Review Family History of Problems with Anesthesia: No History of Problems with Anesthesia: No Documented by User: Corby Pena MD 02/02/24 13:05 [facility] Past Medical History Medical History (Updated 02/02/24 @ 12:44 by Cinthya Palumbo, ROSANNE) CAD (coronary artery disease) Hyperlipidemia Iron deficiency anemia Anemia Superior mesenteric artery stenosis Celiac artery stenosis Vaccine refused by patient (~09/05/23) Cigar smoker unmotivated to quit Chronic vascular insufficiency of intestine Impaired fasting glucose Diarrhea Granular cell tumor Chronic GERD Family History Family History Maternal Aunt No problems noted. Maternal Aunt No problems noted. Surgical History Surgical History (Updated 02/02/24 @ 12:43 by Cintyha Palumbo, RN) H/O heart artery stent History of esophagogastroduodenoscopy (EGD) Hx of colectomy Hx of appendectomy Hx of colonoscopy Social History Social History Household Members: Spouse Housing: Apartment Do you presently have visiting nurse or other home services: No Patient Tobacco Use Status: Former Tobacco user Tobacco use type: Cigarette and Cigar Cigarettes Per Day: 2 Years Smoked: 3 e-Cigarette/Vaping Use: Never Used Are you DNR?: No Advance Directives: No Advance Directives Information Provided: Yes Nutrition Risks: No Nutritional Risk service: No Current occupational status: employed Cognitive needs: No Hearing needs: No Vision needs: No Meds Allergies Allergy/AdvReac Type Severity Reaction Status Date / Time No Known Allergies Allergy Verified 01/30/24 09:52 Home Medications ?Medication ?Instructions ?Recorded ?Confirmed ?Last Taken ?Type sucralfate 1 gram tablet 1 tab PO BEDTIME 06/02/22 07/23/22 07/23/22 09:00 History apixaban 5 mg tablet (Eliquis) 5 mg PO BID 10/10/23 01/29/24 History pantoprazole 40 mg tablet,delayed 40 mg PO BID 10/10/23 Unknown History release Exam Airway Mallampati Class: II TM Dist: >3cm Neck ROM: Full Loose/Missing/Broken Teeth: No Heart: rrr Lungs: cta Assessment and Plan Assessment Anesthesia Assessment: Anesthesia Plan Discussed and Chart Reviewed Final Anesthetic Review NPO: Yes ASA Class: III Final Preanesthetic Review: No Changes in Pt Med Stat, Meds/Allgs Chart Reviewed, Consent Obtained/Reviewed and Anes Risks/Benef Reviewed Patient Risk: Intermediate Procedure Risk: Intermediate Anesthetic Plan Anesthetic Plan: GA Disposition: Standard PACU
[2024-02-02 12:20] VITALS: BP 101/83; PULSE 78; RESP 20; TEMP 36.3; O2SAT 97; BMI 22.4
--- NOTE | 2024-02-02 12:51 | MHC.SHP ---
Pre-Procedural Eval Section A - 24 Hr Update-Section A only Date of Service: 02/02/24 Section B - Complete if H&P > 30 days Chief Complaint: Chronic vascular disorders of intestine Details of Present Illness: hx of abn colonoscopy and poor prep, AVM on capsule Relevant Family History (Specify if Yes): No Relevant Social History: None Present Medications: see Short Stay Collaborative assessment Medical History: Significant History (Hyperlipidemia Iron deficiency anemia Anemia Superior mesenteric artery stenosis Celiac artery stenosis Vaccine refused by patient (~09/05/23) Cigar smoker unmotivated to quit Chronic vascular insufficiency of intestine Impaired fasting glucose Diarrhea Granular cell tumor Chronic GERD) History of Previous Operations: Relevant previous surgery/procedure and date(s) (History of esophagogastroduodenoscopy (EGD) Hx of colectomy Hx of appendectomy Hx of colonoscopy) Allergies: Allergies Allergy/AdvReac Type Severity Reaction Status Date / Time No Known Allergies Allergy Verified 01/30/24 09:52 Review of Systems Sugical H&P ROS: Negative: Constitution, Cardiovascular, Respiratory, Neurological, Psychiatric, Hem-Onc, Allergic/Immunologic, Gastrointestinal, Genitourinary, Musculoskeletal, Integumentary, Endocrine and Eyes/Ears/Nose/Throat Exam Surgical H&P Exam: Normal: HEENT, Normal: Heart, Normal: Lungs, Normal: Extremities, Normal: Abdomen, Normal: Skin and Normal: Neurological Plan Diagnosis/Plan: Unchanged I have reviewed the history and physical and performed a pertinent physical examination on my patient. No changes have occurred unless specified. Time Spent With Patient Time: Total time managing care of this patient today ____ minutes.
--- NOTE | 2024-02-02 13:13 | P.OPN-COLO_ITS ---
Colonoscopy Operative Note Operative Note Date of Service: 02/02/24 Narrative: Operative Information Procedure Description: Push enteroscopy, Colonoscopy Indication: AVM, and prior fair prep on colonoscopy with abn appearing tissue Anesthesia: MAC FLEXIBLE TRANSORAL UPPER GASTROINTESTINAL ENDOSCOPY AND COLONOSCOPY PROCEDURE NOTE UPPER ENDOSCOPY Consent: Indications for the procedure and potential complications of bleeding, perforation, reaction to medications and missed diagnosis were discussed with the patient and informed consent was obtained. Instrument: Olympus GIF H 190 J mid size upper endoscope Monitoring: Vital signs and clinical assessment, continuous EKG monitoring, Pulse oximetry, Carbon Dioxide monitoring and blood pressure monitoring were done throughout the procedure. Procedure: The patient was placed in the left lateral decubitis position and pre-procedure medications were administered and a bite block was placed. The endoscope was inserted into the mouth and advanced under direct vision to the third part of duodenum. A careful inspection was made as the upper endoscope was withdrawn including a retroflexed examination of the proximal stomach; Findings and interventions are described below. Findings: Larynx:normal Esophagus: GE junction at 40 cm, diaphragm hiatus at 40 cm, erosive esophagitis noted, LA grade B, some friability as well Stomach: Mild gastritis Grade 2 flap valve on retroflexed examination of the cardia. Duodenum: Normal bulb and descending duodenum, 3 small AVM noted, ablated with APC jejunum: proximal, x2 small Avm noted ablated with APC Intervention: Biopsies as noted above, COLONOSCOPY Instrument: Olympus variable stiffness pediatric scope 190L Colonoscopy Monitoring: Vital signs and clinical assessment, continuous EKG monitoring, Pulse oximetry, Carbon Dioxide monitoring and blood pressure monitoring were done throughout the procedure. Colon withdrawal time was 9 minutes. Procedure: The patient was placed in the left lateral decubitis position and pre-procedure medications were administered. After a digital rectal examination of the ano-rectum, the video colonoscope was inserted into the rectum and advanced through the colon to the cecum/TI. The colonoscope was slowly withdrawn in a retrograde panoramic fashion and the colon mucosa was carefully examined including a retroflexed view of the rectum. Findings and interventions are described below. Procedure Difficulty:moderate Findings: entero-colonic anastomosis noted Ascending Colon: normal Transverse Colon -normal Descending Colon:normal Sigmoid Colon: normal Rectum: Retroflexion with small internal hemorrhoids, grade I Anorectum - normal Colon preparation: [place] Bowel Preparation Scale Right colon; 2 Transverse colon: 2 Left colon; 2 (0 = Unprepared colon segment with mucosa not seen due to solid stool that cannot be cleared. 1 = Portion of mucosa of the colon segment seen, but other areas of the colon segment not well seen due to staining, residual stool and/or opaque liquid. 2 = Minor amount of residual staining, small fragments of stool and/or opaque liquid, but mucosa of colon segment seen well. 3 = Entire mucosa of colon segment seen well with no residual staining, small fragments of stool or opaque liquid) Impression and Post Procedure Diagnosis: Endoscopy Findings: AVM gastritis erosive esophagitis Colonoscopy Findings: internal hemorrhoids Plan: Repeat Colonoscopy in 10 years or earlier if clinically indicated High fiber diet leaflet avoid straining at stool, epsom salts and sitz bath, anusol supps or cream confirm compliance with carafate and PPI, smoking cessation lovenox tonight and tomorrow and if stable can restart eliquis on FridayFebruary 03 Above findings were reviewed with the patient and relevant handouts were provided if indicated.
[2024-02-02 13:49] VITALS: BP 130/76; PULSE 85; RESP 19; TEMP 36.5; O2SAT 99
[2024-02-02 14:04] VITALS: BP 139/75; PULSE 69; RESP 18; O2SAT 99
[2024-02-02 14:19] VITALS: BP 149/75; PULSE 71; RESP 16; TEMP 36.4; O2SAT 100
== END 2024-02-02 15:12 | disposition home or self-care (01) ==
PROVIDERS: PCP Internal Medicine; Visit Provider Internal Medicine Gastroenterology
PROC: (CPT 43255; principal; 2024-02-02 14:30)
PROC: (CPT 43255; 2024-02-02 14:30)
PROC: 0DJD8ZZ Inspection of Lower Intestinal Tract, Via Natural or Artificial Opening Endoscopic (ICD-10-PCS; CPT 45378; 2024-02-02 14:30)
DX: K55.1 Chronic vascular disorders of intestine (principal); K31.819 Angiodysplasia of stomach and duodenum without bleeding; K55.20 Angiodysplasia of colon without hemorrhage; K20.80 Other esophagitis without bleeding; K29.70 Gastritis, unspecified, without bleeding; R93.3 Abnormal findings on diagnostic imaging of other parts of digestive tract; K64.0 First degree hemorrhoids; Z98.0 Intestinal bypass and anastomosis status
CPT/HCPCS: 43255; 45378; J1610; J2250; J2704

== ENCOUNTER → 2024-02-02 12:18 | Outpatient (BNV) | payer OTHER, SELFPAY | PROVIDERS: PCP Internal Medicine; Visit Provider Internal Medicine Gastroenterology | DX: K31.819 Angiodysplasia of stomach and duodenum without bleeding (principal); K20.90 Esophagitis, unspecified without bleeding; K29.70 Gastritis, unspecified, without bleeding; K64.0 First degree hemorrhoids | CPT/HCPCS: 43270; 45378 ==

== ENCOUNTER 2024-02-13 20:37 | Emergency (ER) | payer OTHER, SELFPAY ==
--- NOTE | ~2024-02-13 | CT_ITS ---
EXAMINATION: CT ANGIOGRAM ABDOMEN AND PELVIS CLINICAL INFORMATION: Reason for Exam severe abd pain, hx celiac/SMA occlusion s/p stent COMPARISON: 01/30/2024 TECHNIQUE: Multiple axial images were obtained through the abdomen and pelvis following the administration of 80 mL of Omnipaque 350 intravenous contrast. Images were reviewed on a dedicated 3-D workstation. This CT examination was performed using dose optimization techniques as appropriate, variously including the following: *Automated exposure control *Adjustment of mA and/or kV according to patient size (this includes techniques or standardized protocols for targeted exams where dose is matched to indication/reason for exam; i.e. extremities or head) *Use of iterative reconstruction technique DLP: 362 mGy-cm FINDINGS: LUNG BASES: The visualized lung bases are unremarkable. LIVER, GALLBLADDER, AND BILIARY TREE: The liver is normal in size, shape, and attenuation. No focal hepatic lesion or biliary ductal dilatation is present. Gallbladder is physiologically distended with subtle layering hyperdensity towards the fundus suggesting gallstones. PANCREAS: Unremarkable. SPLEEN: Unremarkable. ADRENAL GLANDS: Unremarkable. KIDNEYS AND URETERS: Bilateral nephrograms are symmetric. No hydronephrosis or obstructing calculus identified. BLADDER: Unremarkable. GASTROINTESTINAL TRACT: No convincing evidence of bowel obstruction. There is suggestion of some small bowel wall thickening in the right lower quadrant, though suboptimally assessed due to incomplete luminal distention. Evaluation for wall thickening in the colon is also limited due to luminal collapse. No free fluid or free air is seen. ABDOMINAL WALL: No significant hernia is appreciated. LYMPH NODES: Normal. VASCULAR: No evidence of aortic aneurysm or dissection. There is mixed calcified and noncalcified plaque along the aorta. There is redemonstrated occlusion of the celiac artery origin with reconstitution. Superior mesenteric artery stent is present. The stent appears nonopacified the evening just beyond its origin, with reconstitution of flow in the SMA beyond the stent. Bilateral renal arteries are patent. The inferior mesenteric artery appears significantly narrowed at its origin and patent beyond this site, similar to prior. Bilateral iliac arteries and visualized proximal femoral arteries are patent. PELVIC VISCERA: Prostatic calcifications are noted. OSSEOUS STRUCTURES: Unremarkable. CT/CT angio abdomen pelvis IMPRESSION: 1. Superior mesenteric artery stent appears nonopacified/occluded just beyond its origin, a new finding since 01/30/2024, with reconstitution of flow in the SMA beyond the stent. 2. Redemonstrated occlusion of the celiac artery with reconstitution. 3. Suboptimal assessment for wall thickening in much of the bowel due to incomplete distention, though there is of some small bowel wall thickening in the right lower quadrant, which could represent an enteritis. 4. Cholelithiasis.
[2024-02-13 20:38] VITALS: BP 171/86; PULSE 80; RESP 18; TEMP 36.6; O2SAT 100; BMI 21.7
--- NOTE | 2024-02-13 20:42 | ED.GENADULT ---
HPI - General Adult General Chief complaint: Nausea/Vomiting/Diarrhea Stated complaint: vomiting Time Seen by Provider: 02/13/24 22:38 Source: patient, RN notes reviewed and old records reviewed Mode of arrival: ambulatory Limitations: no limitations History of Present Illness ED Provider: Eleanor Jones PA-C HPI narrative: 48 yo male with PMH of chronic GERD, small intestine AVMs, gastritis, active smoker, history of celiac artery antioplasty at [facility], s/p stent occlusion & right hemicolectomy and re-stenting on Eliquis, anemia, followed by Dr. Garduno here with c/o abrupt onset RUQ abd pain and right flank pain that started today around 3pm. It is associated with nausea and vomiting. Pain is 10/10 and constant. No urinary symptoms. He was seen here on 01/[address] angiogram at that time showing moderate intra-stent stenosis of the SMA stent, occlusion of the celiac artery with reconstitution via the GDA. Patient had colonoscopy on 02/[address] Garduno. complaint: RUQ abd pain, vomiting Onset (ago): hour(s) Location: abdomen Radiation: flank Severity: severe Severity scale (1-10): 10 Quality: stabbing and sharp Pain Consistency: constant Relieving factors: none Exacerbating factors: movement Associated symptoms: nausea/vomiting Treatments prior to arrival: none Related Data Home Medications ?Medication ?Instructions ?Recorded ?Confirmed sucralfate 1 gram tablet 1 tab PO BEDTIME 06/02/22 07/23/22 apixaban 5 mg tablet (Eliquis) 5 mg PO BID 10/10/23 pantoprazole 40 mg tablet,delayed 40 mg PO BID 10/10/23 release Previous Rx's ?Medication ?Instructions ?Recorded diclofenac sodium 1 % topical gel 2 g topical QID PRN elbow pain 11/29/21 #100 grams ketotifen fumarate 0.025 % (0.035 1 drp ophthalmic (eye) BID #5 mL 03/01/22 %) eye drops (Allergy Eye (ketotifen)) aluminum-mag hydroxide-simethicone 5 ml PO 5XD PRN dyspepsia #355 mL 10/29/22 200 mg-200 mg-20 mg/5 mL oral susp (Maalox Advanced) rosuvastatin 20 mg tablet (Crestor) 20 mg PO DAILY #90 tabs 03/01/23 peg-electrolyte solution 420 gram 240 ml PO Q10M #4,000 mL 09/05/23 oral solution aspirin 81 mg capsule 81 mg PO DAILY #30 caps 10/16/23 mesalamine 0.375 gram 1.5 g (4 x 0.375 gram) PO QAM #360 12/08/23 capsule,extended release 24 hr caps (Apriso) enoxaparin 60 mg/0.6 mL 60 mg (0.6 mL) subcut Q12H #6 mL 01/20/24 subcutaneous syringe (Lovenox) ondansetron 4 mg disintegrating 4 mg PO Q8H PRN nausea and 01/30/24 tablet vomiting #20 tabs pantoprazole 40 mg tablet,delayed 40 mg PO DAILY #60 tabs 02/02/24 release sucralfate 100 mg/mL oral 10 ml PO BID #1,000 mL 02/02/24 suspension (Carafate) Allergies Allergy/AdvReac Type Severity Reaction Status Date / Time No Known Allergies Allergy Verified 02/13/24 20:43 Review of Systems Review of Systems: Yes all other systems are reviewed and are negative FOR[facility]LY [facility] Past Medical History Medical History (Updated 02/14/24 @ 02:46 by Debby Ventura MD) CAD (coronary artery disease) Hyperlipidemia Iron deficiency anemia Anemia 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 Maternal Aunt No problems noted. Social History Social History Household Members: Spouse Housing: Apartment Do you presently have visiting nurse or other home services: No Patient Tobacco Use Status: Former Tobacco user Tobacco use type: Cigarette and Cigar Cigarettes Per Day: 2 Years Smoked: 3 e-Cigarette/Vaping Use: Never Used Advance Directives: No Advance Directives Information Provided: No Do you have a plan to hurt others: No Plan service: No Current occupational status: employed Cognitive needs: No Hearing needs: No Vision needs: No Physical Exam ED Vital Signs: Vital Signs - 24 hr 02/13/24 20:38 02/14/24 00:53 02/14/24 01:10 Temperature 97.9 F 98.3 F Pulse Rate 80 79 77 Respiratory Rate 18 15 16 Blood Pressure 171/86 H 105/53 L 130/71 Pulse Oximetry 100 Oxygen Delivery Method Room Air 02/14/24 01:21 02/14/24 01:42 Temperature Pulse Rate 82 Respiratory Rate 16 Blood Pressure 126/77 Pulse Oximetry Oxygen Delivery Method BMI result Body Mass Index 21.7 Appearance: Alert. Oriented X3. Laying on his left side, still on the stretcher, appears in pain. pale Head: normocephalic, atraumatic. Eyes: Pupils equal, round and reactive to light. ENT: Pharynx normal. No tonsillar swelling or exudate. Neck: Normal inspection. Neck supple. CVS: Normal heart rate and rhythm. Pulses normal. Respiratory: No respiratory distress. Breath sounds normal. Abdomen: Well-healed surgical scar consistent with prior open abdominal surgery, diffuse tenderness of the right side of the abdomen and right flank. Positive CVA tenderness on the right. Decreased but present bowel sounds. Skin: Skin warm and dry. Normal skin color. Normal skin turgor. No rashes. Extremities: No lower extremity edema. No joint swelling. Neuro/psych: Oriented X 3. No motor deficit. No sensory deficit. CN II-XII intact. Normal speech and cognition. Course Course Course Narrative: This is a Rapid Medical Examination (RME) performed by Thee Vitale PA-C in triage. Full HPI, ROS, assessment and treatment plan per primary provider in the Main ED. 48 yo male with PMH of chronic GERD, cigarette smoking, reduced flow to SMA/celiac arteries s/p stent placement into mesenteric circulation at [facility], s/p stent occlusion & right hemicolectomy and re-stenting on Lovenox injections daily, anemia, followed by Dr. Garduno here with c/o abrupt onset RUQ abd pain, N/V today. seen here on 01/[address] angiogram showing moderate ins-stent stenosis of the SMA stent. discharged home with zofran. ill appearing in triage. actively vomiting. abd ttp of RUQ and epigastric region. Plan: labs, ua, viral serology. zofran give. will likely need CT when pulled back to main ED. Reevaluation(s) Reevaluation #1: Patient reporting improvement in pain to an 8/10 from a 10/10 after 1 mg of IV Dilaudid. A 2nd mg has been ordered. Nursing reports patient was sleeping between care. CT scan is pending. Time: 01:36 Time: 01:57 Medications Administered Discontinued Medications Generic Name Dose Route Start Last Admin Trade Name Freq PRN Reason Stop Dose Admin Hydromorphone HCl 1 mg 02/13/24 22:55 02/13/24 23:03 Hydromorphone Hcl 1 Mg/Ml Syringe IVPUSH 02/13/24 22:56 1 mg ONCE ONE Administration Protocol Hydromorphone HCl 1 mg 02/14/24 01:35 02/14/24 01:42 Hydromorphone Hcl 1 Mg/Ml Syringe IVPUSH 02/14/24 01:36 1 mg ONCE ONE Administration Protocol Sodium Chloride 1,000 mls @ 999 mls/hr 02/13/24 23:00 02/14/24 00:37 Ns IV 02/14/24 00:00 Infused .Q1H1M LATOSHA Infusion Iohexol 80 ml 02/13/24 23:51 02/13/24 23:52 Iohexol 350 Mg/Ml 100 Ml Infus..Btl IV 02/13/24 23:52 80 ml ONCE ONE Administration Ondansetron HCl 4 mg 02/13/24 20:44 02/13/24 20:47 Ondansetron Odt 4 Mg Tab.Rapdis TRANSLINGU 02/13/24 20:45 4 mg ONCE ONE Administration Ondansetron HCl 4 mg 02/13/24 22:55 02/13/24 23:03 Ondansetron Hcl 4 Mg/2 Ml Vial IVPUSH 02/13/24 22:56 4 mg ONCE ONE Administration Medical Decision Making Medical Decision Making MDM Narrative: 48 yo male with complicated GI history including of chronic GERD, small intestine AVMs, gastritis, active smoker, history of celiac artery antioplasty at [facility], s/p stent occlusion & right hemicolectomy and re-stenting on Eliquis, anemia, followed by Dr. Garduno here with c/o abrupt onset of constant, 10/10 RUQ abd pain and right flank pain that started today around 3pm along w/ nausea and vomiting. Patient's abdomen is diffusely tender and he appears unwell. Lab workup revealing for leukocytosis of 15.6, lactic acid of 2.5. Repeat CT angiogram ordered he was given IV Dilaudid with improvement in the pain CT scan with opacification/occlusion of the superior mesenteric artery stent just beyond its origin which is new from January 29 scant but there is reconstitution of flow in the SMA beyond the stent. There is redemonstrated occlusion of the celiac artery with reconstitution. There was also possible enteritis in the small bowel wall thickening in the right lower quadrant. He has been getting 2nd mg of IV Dilaudid for pain control. His lactic acid normalized. Patient will likely require admission for further monitoring. Surgery & Vascular (Dr. Ortiz reviewed last CT on 01/29) have been paged as of 01:55. Awaiting call back. Dr. Ventura updated on case and will follow-up with surgery and Dr. Ortiz for further recommendations. Patient's case discussed with Dr. Ortiz. [place] given patient has a complete occlusion of the SMA stent. Will need further evaluation especially in the setting of elevated white count. Patient's lactate came down after IV fluids the 2nd lactate is now 1.7. Case was discussed with [facility] transfer [place]. Accepted patient to the [facility] emergency department. Currently in stable condition. Risk and benefit of transfer explained to patient. Patient understood that his previous surgery was done with Dr. Renner, wants to go there. Understood the risk of transfer. Currently in stable condition. Patient already on Eliquis. He claims compliance with medication. A copy of the CT scan was burned onto a CD for him Differential Diagnosis Differential Diagnoses: The differential diagnosis associated with the presentation includes Acute mesenteric ischemia, stent occlusion, kidney stone, acute cholecystitis, ascending cholangitis, bowel perforation Admission/Observation Consideration of admission/observation: Escalation of care including admission/observation considered Lab Data MDM Lab Attestation statement: I reviewed the patient's lab results. 02/13/24 22:48 02/13/24 22:48 Labs: Lab Results 02/13/24 02/13/24 02/14/24 Range/Units 21:16 22:48 01:09 WBC 15.6 H (4.8-10.8) X10*3/uL RBC 4.76 (4.60-5.80) X10*6/uL Hgb 13.1 L (14.0-18.0) g/dl Hct 39.5 L (42.0-52.0) % MCV 83.0 (80.0-98.0) fL MCH 27.5 (27.0-33.0) pg MCHC 33.2 (31.0-36.0) g/dl RDW 18.8 H (11.0-16.0) % Plt Count 370 (160-400) X10*3/uL MPV 8.9 L (9.4-12.4) fL Immature Gran % (Auto) 0.4 (0.0-0.4) % Neut % (Auto) 85.9 H (45-73) % Lymph % (Auto) 5.6 L (20-40) % [place] % (Auto) 7.8 (2-11) % Eos % (Auto) 0.0 (0-4) % Baso % (Auto) 0.3 (0-2) % Lymph # (Auto) 0.9 L (1.2-4.9) X10*3/uL [place] # (Auto) 1.2 (0.1-1.2) X10*3/uL Eos # (Auto) 0.0 (0.0-0.4) X10*3/uL Baso # (Auto) 0.0 (0.0-0.2) X10*3/uL Abs Immat Gran (auto) 0.06 H (0.00-0.03) X10*3/uL Absolute Neuts (auto) 13.4 H (2.0-8.3) x10*3/uL Absolute Nucleated RBC 0.000 (0.0-0.012) X10*3/uL Nucleated RBC % (auto) 0.0 (0.0-0.2) /100WBC Sodium 138 (135-145) mmol/L Potassium 4.6 (3.3-5.1) mmol/L Chloride 103 (96-108) mmol/L Carbon Dioxide 22 (22-29) mmol/L Anion Gap 18 (12-20) BUN 14 (9-16) mg/dL Creatinine 0.84 (0.5-1.4) mg/dL Estim Creat Clear Calc 110.5 Estimated GFR > 60 POC Glucose 190 H (60-115) mg/dL Random Glucose 210 H (60-115) mg/dL Lactic Acid 2.5 H* (0.5-2.0) mmol/L Lactic Acid F/U @ 2Hr 1.7 (0.5-2.0) mmol/L Calcium 10.1 (8.4-10.2) mg/dL Magnesium 1.7 (1.6-2.6) mg/dL Total Bilirubin 0.6 (0.0-1.0) mg/dL Direct Bilirubin 0.2 (0.0-0.5) mg/dL AST 16 (5-37) U/L ALT 14 (0-40) U/L Alkaline Phosphatase 86 (39-117) U/L Total Protein 8.1 H (6.5-8.0) g/dL Albumin 4.6 (3.5-5.0) g/dL Lipase 55 (8-78) U/L Independent Interpretation I performed an independent interpretation of an: CT Scan Interpretation: CT scan reviewed, no obvious mesenteric occlusion or dilatation, no signs of bowel perforation, free air, kidney stones Radiology Impression Discussion of test interpretation with radiology: I have reviewed the radiologist's reading. Radiologist Impression: CT/CT angio abdomen pelvis IMPRESSION: 1. Superior mesenteric artery stent appears nonopacified/occluded just beyond its origin, a new finding since 01/30/2024, with reconstitution of flow in the SMA beyond the stent. 2. Redemonstrated occlusion of the celiac artery with reconstitution. 3. Suboptimal assessment for wall thickening in much of the bowel due to incomplete distention, though there is of some small bowel wall thickening in the right lower quadrant, which could represent an enteritis. 4. Cholelithiasis. External Record Review External record reviewed: Office record, Outpatient record, Prior outpatient labs and Prior outpatient radiology Prescription Management I considered prescription management with: Pain Medication and Antibiotic Chronic Conditions Patient?s care impacted by: Other (Mesenteric ischemia in the past complicated by stent occlusion) Critical Care Time Critical Care Time Critical Care Time: Yes Total Critical Care Time: 44 Attestation: I have personally provided critical care time exclusive of time spent on separately billable procedures. Time includes review of lab data, radiology results, re-evaluation of hemodynamics after administration of IV narcotics, and monitoring for potential decompensation. Intervention performed as documented. Discharge Plan Discharge Clinical Impression: Ischemic bowel disease Abdominal pain Qualifiers: Abdominal location: right upper quadrant Qualified Code(s): R10.11 - Right upper quadrant pain Patient Disposition: [facility] Prescriptions: No Action rosuvastatin [Crestor] 20 mg tablet 20 mg PO DAILY Qty: 90 3RF aspirin 81 mg capsule 81 mg PO DAILY Qty: 30 3RF mesalamine [Apriso] 0.375 gram capsule,extended release 24hr 1.5 g PO QAM Qty: 360 0RF enoxaparin [Lovenox] 60 mg/0.6 mL syringe 60 mg subcut Q12H Qty: 6 0RF Rx Instructions: lovenox bridging, commence 3 days before endoscopy and stop eliquis alum-mag hydroxide-simeth [Maalox Advanced] 200-200-20 mg/5 mL suspension 5 ml PO 5XD PRN (Reason: dyspepsia) Qty: 355 0RF Rx Instructions: administer between meals and at bedtime sucralfate 1 gram tablet 1 tab PO BEDTIME pantoprazole 40 mg tablet,delayed release (DR/EC) 40 mg PO DAILY Qty: 60 2RF sucralfate [Carafate] 100 mg/mL suspension 10 ml PO BID Qty: 1000 1RF ondansetron 4 mg tablet,disintegrating 4 mg PO Q8H PRN (Reason: nausea and vomiting) Qty: 20 0RF diclofenac sodium 1 % gel 2 g topical QID PRN (Reason: elbow pain ) Qty: 100 0RF Rx Instructions: apply to single elbow, wrist or hand; for hand includes palm/fingers/back of hand ketotifen fumarate [Allergy Eye (ketotifen)] 0.025 % (0.035 %) drops 1 drp ophthalmic (eye) BID Qty: 5 6RF Rx Instructions: administer at least 8 hours apart peg-electrolyte soln 420 gram recon soln 240 ml PO Q10M Qty: 4000 0RF Rx Instructions: until fecal effluent is clear; do not exceed a total volume of 2,000 mL Eliquis 5 mg tablet 5 mg PO BID pantoprazole 40 mg tablet,delayed release (DR/EC) 40 mg PO BID Print Language: English
[2024-02-13] MEDS: Ondansetron ODT 4 MG TAB.RAPDIS TRANSLINGU (20:47)
--- NOTE | 2024-02-13 21:09 | ECG_ITS ---
Test Reason : CHEST PAIN Blood Pressure : / mmHG Vent. Rate : 069 BPM Atrial Rate : 069 BPM P-R Int : 120 ms QRS Dur : 086 ms QT Int : 360 ms P-R-T Axes : 076 056 005 degrees QTc Int : 385 ms Sinus rhythm with marked sinus arrhythmia Possible Left atrial enlargement Borderline ECG When compared with ECG of 30-JAN-2024 10:10, No significant change was found Referred By: Generic ED Physician Electronically Signed By:BACILIO WARREN
[2024-02-13 21:21] LABS: Glucose, Whole Blood 190 mg/dL (60-115)
[2024-02-13 22:54] LABS: MANUAL DIFF FLAG NO
[2024-02-13 22:55] LABS: Basophils Percent Auto 0.3 % (0-2); Hematocrit 39.5 % (42.0-52.0); Hemoglobin 13.1 g/dl (14.0-18.0); Imm Gran Abs Auto 0.06 X10*3/uL (0.00-0.03); Imm Gran Pct Auto 0.4 % (0.0-0.4); Lymphocytes Absolute Auto 0.9 X10*3/uL (1.2-4.9); Lymphocytes Percent Auto 5.6 % (20-40); Mean Corpuscular HGB Conc 33.2 g/dl (31.0-36.0); Mean Corpuscular Hemoglobin 27.5 pg (27.0-33.0); Mean Platelet Volume 8.9 fL (9.4-12.4); Monocytes Absolute Auto 1.2 X10*3/uL (0.1-1.2); Monocytes Percent Auto 7.8 % (2-11); Neutrophils Absolute Auto 13.4 x10*3/uL (2.0-8.3); Neutrophils Percent Auto 85.9 % (45-73); Platelet Count 370 X10*3/uL (160-400); Red Blood Count 4.76 X10*6/uL (4.60-5.80); Red Cell Distribution Width 18.8 % (11.0-16.0); White Blood Count 15.6 X10*3/uL (4.8-10.8)
[2024-02-13] MEDS: HYDROmorphone HCl 1 MG/ML SYRINGE IVPUSH (23:03)
[2024-02-13] MEDS: ondansetron HCL 4 MG/2 ML VIAL IVPUSH (23:03)
[2024-02-13 23:07] LABS: Lactic Acid 2.5 mmol/L (0.5-2.0)
[2024-02-13] MEDS: 0.9 % Sodium Chloride 1,000 ML 999 ML IV (23:08)
[2024-02-13 23:11] LABS: Alanine Aminotransferase 14 U/L (0-40); Albumin Level 4.6 g/dL (3.5-5.0); Alkaline Phosphatase 86 U/L (39-117); Anion Gap 18 (12-20); Aspartate Amino Transferase 16 U/L (5-37); Bilirubin Direct 0.2 mg/dL (0.0-0.5); Bilirubin Total 0.6 mg/dL (0.0-1.0); Blood Urea Nitrogen 14 mg/dL (9-16); Calcium 10.1 mg/dL (8.4-10.2); Carbon Dioxide 22 mmol/L (22-29); Chloride 103 mmol/L (96-108); Creatinine Clr Calc Pharmacy 110.5; Estimated Glomerular Filt Rate > 60; Glucose Random 210 mg/dL (60-115); Magnesium 1.7 mg/dL (1.6-2.6); Potassium 4.6 mmol/L (3.3-5.1); Sodium 138 mmol/L (135-145); Total Protein 8.1 g/dL (6.5-8.0)
[2024-02-13 23:31] LABS: Lipase 55 U/L (8-78)
--- NOTE | 2024-02-13 23:39 | PC.NURSE ---
Report taken from Lise. Pt to CT. Plan of care ongoing.
[2024-02-13] MEDS: iohexoL 350 MG/ML 100 ML INFUS..BTL 80 ML IV (23:52)
--- NOTE | 2024-02-13 23:55 | PC.NURSE ---
Pt returns from CT.
[2024-02-14 00:52] LABS: Reflex Lactate? Lactic Acid Added
[2024-02-14 00:53] VITALS: BP 105/53; PULSE 79; RESP 15
[2024-02-14 01:10] VITALS: BP 130/71; PULSE 77; RESP 16; TEMP 36.8
--- NOTE | 2024-02-14 01:12 | PC.NURSE ---
Repeat lactic obtained and sent. VSS.
[2024-02-14 01:21] VITALS: BP 126/77; PULSE 82
[2024-02-14 01:24] LABS: ~Lactic Acid-LAB USE ONLY 1.7 mmol/L (0.5-2.0)
[2024-02-14 01:42] VITALS: RESP 16
[2024-02-14] MEDS: HYDROmorphone HCl 1 MG/ML SYRINGE IVPUSH (01:42)
--- NOTE | 2024-02-14 01:46 | PC.NURSE ---
Pt medicated for pain. at bedside. Pt awaiting CT results.
--- NOTE | 2024-02-14 02:25 | PC.NURSE ---
at bedside explaining CT results and plan for tx to [facility].
--- NOTE | 2024-02-14 02:48 | PC.NURSE ---
Plan to tx to [facility]. EMS arriving in 2 hours.
[2024-02-14 03:30] VITALS: BP 132/90; PULSE 74; RESP 16; TEMP 36.8; O2SAT 99
--- NOTE | 2024-02-14 03:39 | PC.NURSE ---
EMS at bedside for transport.
--- NOTE | 2024-02-14 04:03 | PC.NURSE ---
Report given to Beatriz.
== END 2024-02-14 05:10 | disposition short-term general hospital (02) ==
PROVIDERS: Physician Assistant; Emergency Provider Emergency Medicine Emergency Medical Services; PCP Internal Medicine
DX: R10.11 Right upper quadrant pain (principal); K55.20 Angiodysplasia of colon without hemorrhage; T82.858D Stenosis of other vascular prosthetic devices, implants and grafts, subsequent encounter; Z79.01 Long term (current) use of anticoagulants
CPT/HCPCS: 36415; 74174; 80048; 80076; 82947; 83605; 83690; 83735; 85025; 93005; 96361; 96374; 96375; 99285; J1170; J2405; Q9967

== ENCOUNTER → 2024-02-13 21:09 | Outpatient (BNV) | payer OTHER, SELFPAY | PROVIDERS: Emergency Provider Emergency Medicine Emergency Medical Services; PCP Internal Medicine; Visit Provider Internal Medicine | DX: R07.9 Chest pain, unspecified (principal); R94.31 Abnormal electrocardiogram [ECG] [EKG] | CPT/HCPCS: 93010 ==

== ENCOUNTER 2024-03-08 22:56 | Emergency (ER) | payer OTHER, SELFPAY ==
--- NOTE | 2024-03-08 | ECG_ITS ---
Test Reason : CHEST PAIN Blood Pressure : / mmHG Vent. Rate : 090 BPM Atrial Rate : 090 BPM P-R Int : 128 ms QRS Dur : 088 ms QT Int : 332 ms P-R-T Axes : 071 054 013 degrees QTc Int : 406 ms Normal sinus rhythm Normal ECG When compared with ECG of 13-FEB-2024 21:12, No significant change was found Referred By: Julian Lopez Electronically Signed By:VINAY HER MD
--- NOTE | ~2024-03-08 | XR_ITS ---
EXAMINATION: XR CHEST CLINICAL INFORMATION: Chest pain. COMPARISON: CTA chest 07/20/2023. Chest radiograph 12/21/2022. TECHNIQUE: Frontal view of the chest was obtained. FINDINGS: Normal appearance of the cardiomediastinal silhouette. Redemonstration of metallic radiodensity projecting over the lower right cardiomediastinal silhouette. Increased bilateral interstitial markings and parenchymal haziness compared to most recent priors. No dense consolidation. No pleural effusion or pneumothorax. No acute osseous findings. XR/XR chest 1V IMPRESSION: Increased interstitial markings and parenchymal haziness compared to most recent priors raising the possibility of an atypical infectious/inflammatory process. No dense consolidation. No pleural effusion or pneumothorax. Recommend short-term follow-up.
[2024-03-08 23:14] VITALS: BP 108/55; PULSE 80; O2SAT 99; BMI 27.5
[2024-03-08 23:19] VITALS: BP 117/60; PULSE 86; RESP 15; TEMP 36.5; O2SAT 98
--- NOTE | 2024-03-08 23:31 | ED_ITS ---
HPI - Chest Pain General Chief Complaint: Chest Pain Stated Complaint: Near syncopal episode x2, orthostatic HTN Time Seen by Provider: 03/08/24 23:09 Source: patient Mode of arrival: ambulatory Limitations: no limitations History of Present Illness ED Provider: diana MCNEILL narrative: Patient with history of peripheral arterial disease status post right aortic blockage repair current Plavix and Lovenox comes here for chest pain which is localized to both sides off and on , lasting only for few minutes patient has a near-syncope dizziness episode just prior to arrival no nausea no vomiting pain is reproducible patient has been feeling weak and dizzy for last few days not taking any iron pills lately no melena no bleeding Related Data Home Medications ?Medication ?Instructions ?Recorded ?Confirmed sucralfate 1 gram tablet 1 tab PO BEDTIME 06/02/22 07/23/22 apixaban 5 mg tablet (Eliquis) 5 mg PO BID 10/10/23 pantoprazole 40 mg tablet,delayed 40 mg PO BID 10/10/23 release Previous Rx's ?Medication ?Instructions ?Recorded diclofenac sodium 1 % topical gel 2 g topical QID PRN elbow pain 11/29/21 #100 grams ketotifen fumarate 0.025 % (0.035 1 drp ophthalmic (eye) BID #5 mL 03/01/22 %) eye drops (Allergy Eye (ketotifen)) aluminum-mag hydroxide-simethicone 5 ml PO 5XD PRN dyspepsia #355 mL 10/29/22 200 mg-200 mg-20 mg/5 mL oral susp (Maalox Advanced) rosuvastatin 20 mg tablet (Crestor) 20 mg PO DAILY #90 tabs 03/01/23 peg-electrolyte solution 420 gram 240 ml PO Q10M #4,000 mL 09/05/23 oral solution mesalamine 0.375 gram 1.5 g (4 x 0.375 gram) PO QAM #360 12/08/23 capsule,extended release 24 hr caps (Apriso) enoxaparin 60 mg/0.6 mL 60 mg (0.6 mL) subcut Q12H #6 mL 01/20/24 subcutaneous syringe (Lovenox) ondansetron 4 mg disintegrating 4 mg PO Q8H PRN nausea and 01/30/24 tablet vomiting #20 tabs pantoprazole 40 mg tablet,delayed 40 mg PO DAILY #60 tabs 02/02/24 release sucralfate 100 mg/mL oral 10 ml PO BID #1,000 mL 02/02/24 suspension (Carafate) aspirin 81 mg tablet,delayed 81 mg PO DAILY #90 tabs 02/18/24 release ferrous sulfate 324 mg (65 mg 324 mg PO DAILY #30 tabs 03/09/24 iron) tablet,delayed release Allergies Allergy/AdvReac Type Severity Reaction Status Date / Time No Known Allergies Allergy Verified 03/08/24 23:19 Review of Systems 2 Review of Systems: Yes all other systems are reviewed and are negative [facility] Past Medical History Medical History CAD (coronary artery disease) Hyperlipidemia Iron deficiency anemia Anemia 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 Maternal Aunt No problems noted. Social History Social History Household Members: Spouse Housing: Apartment Do you presently have visiting nurse or other home services: No Patient Tobacco Use Status: Former Tobacco user Tobacco use type: Cigarette and Cigar Cigarettes Per Day: 2 Years Smoked: 3 Smoked in Last 30 Days: No e-Cigarette/Vaping Use: Never Used Advance Directives: No Advance Directives Information Provided: Yes Do you have a plan to hurt others: No Plan service: No Current occupational status: employed Cognitive needs: No Hearing needs: No Vision needs: No Physical Exam 2 Vital Signs: Vital Signs: Last Vital Signs Temp 97.7 F 03/08/24 23:19 Pulse 92 03/08/24 23:49 Resp 15 03/08/24 23:19 BP 106/65 03/08/24 23:49 Pulse Ox 98 03/08/24 23:19 O2 Del Method Room Air 03/08/24 23:19 BMI result Body Mass Index 27.5 Appearance: Alert. Oriented X3. No acute distress. Eyes: PERRLA, No Nystagmus, pallor++ ENT: Pharynx normal. Oral Mucosa moist Neck: Normal inspection. Neck supple. CVS: Normal heart rate and rhythm. Pulses normal. Respiratory: No respiratory distress. Equal air entry bilateral, no wheezing/rales/rhonchi local tenderness mid chest wall Abdomen: Soft and nontender. Bowel sounds are present, no mass palpable, no CVA tenderness Skin: Skin warm and dry. Normal skin color. Normal skin turgor. Extremities: No lower extremity edema. No calf tenderness finger no stress no Neuro: Oriented X 3. No motor deficit. Medications Administered Discontinued Medications Generic Name Dose Route Start Last Admin Trade Name Freq PRN Reason Stop Dose Admin Sodium Chloride 1,000 mls @ 999 mls/hr 03/08/24 23:38 03/09/24 00:50 Ns IV 03/09/24 00:38 Infused .Q1H1M ONE Infusion Medical Decision Making Medical Decision Making [facility] Narrative: Patient with history of peripheral arterial disease status post right aortic blockage repair current Plavix and Lovenox comes here for chest pain which is localized to both sides off and on EKG without any ischemic changes troponin is negative patient has reproducible pain vitals are stable normal orthostatic will discharge patient home advised to drink plenty of fluids likely musculoskeletal pain patient's hemoglobin noticed to be decreased to 7.1/22.1 from 8.7 on 02/18/24. Patient has received IV iron infusions in the past on also blood transfusions patient does have chronic mesenteric ischemia, s/p stenting with occlusion and bowel ischemia s/p right hemicolectomy with recurrent anemia patient was seen at [facility] today had a CT scan done of the abdomen which was negative will give him 1 unit of blood transfusion advised plan to follow up with PCP after Differential Diagnosis Differential Diagnoses: The differential diagnosis associated with the presentation includes ACS/non-STEMI/musculoskeletal/anemia Admission/Observation Consideration of admission/observation: Escalation of care including admission/observation considered Lab Data [facility] Lab Attestation statement: I reviewed the patient's lab results. 03/08/24 23:35 03/08/24 23:35 Labs: Lab Results 06/24/24 06/25/24 Range/Units 23:35 00:44 WBC 12.7 H (4.8-10.8) X10*3/uL RBC 2.68 L D (4.60-5.80) X10*6/uL Hgb 7.1 L D (14.0-18.0) g/dl Hct 22.1 L D (42.0-52.0) % MCV 82.5 (80.0-98.0) fL MCH 26.5 L (27.0-33.0) pg MCHC 32.1 (31.0-36.0) g/dl RDW 16.9 H (11.0-16.0) % Plt Count 399 (160-400) X10*3/uL MPV 8.7 L (9.4-12.4) fL Immature Gran % (Auto) 0.4 (0.0-0.4) % Neut % (Auto) 82.0 H (45-73) % Lymph % (Auto) 8.5 L (20-40) % [place] % (Auto) 8.2 (2-11) % Eos % (Auto) 0.6 (0-4) % Baso % (Auto) 0.3 (0-2) % Lymph # (Auto) 1.1 L (1.2-4.9) X10*3/uL [place] # (Auto) 1.0 (0.1-1.2) X10*3/uL Eos # (Auto) 0.1 (0.0-0.4) X10*3/uL Baso # (Auto) 0.0 (0.0-0.2) X10*3/uL Abs Immat Gran (auto) 0.05 H (0.00-0.03) X10*3/uL Absolute Neuts (auto) 10.5 H (2.0-8.3) x10*3/uL Absolute Nucleated RBC 0.000 (0.0-0.012) X10*3/uL Nucleated RBC % (auto) 0.0 (0.0-0.2) /100WBC PT 12.5 (11.1-13.3) SEC INR 1.0 (0.9-1.1) APTT 27.7 (26.0-36.8) SEC Sodium 137 (135-145) mmol/L Potassium 3.9 (3.3-5.1) mmol/L Chloride 106 (96-108) mmol/L Carbon Dioxide 24 (22-29) mmol/L Anion Gap 11 L (12-20) BUN 13 (9-16) mg/dL Creatinine 0.75 (0.5-1.4) mg/dL Estim Creat Clear Calc 117.8 Estimated GFR > 60 Random Glucose 212 H (60-115) mg/dL Calcium 8.6 D (8.4-10.2) mg/dL Magnesium 1.9 (1.6-2.6) mg/dL Iron 18 L (45-160) mcg/dL TIBC 316 (228-428) mcg/dL % Saturation 6 L (15-50) % Unsat Iron Binding 298 ug/dL Total Bilirubin 0.3 (0.0-1.0) mg/dL AST 14 (5-37) U/L ALT 16 (0-40) U/L Alkaline Phosphatase 59 (39-117) U/L Troponin I High Sens < 2.7 (<3.5-35.0) ng/L Total Protein 6.5 (6.5-8.0) g/dL Albumin 3.8 (3.5-5.0) g/dL Stool Occult Blood POSITIVE (NEGATIVE) Crossmatch See Detail Independent Interpretation I performed an independent interpretation of an: EKG and Plain X-Ray Interpretation: Normal sinus rhythm heart rate 90 beats normal interval axis no acute ST-T changes no acute ischemia Radiology Impression Discussion of test interpretation with radiology: I have reviewed the radiologist's reading. Discharge Plan Discharge Clinical Impression: Atypical chest pain, Chronic blood loss anemia Patient Disposition: Still a Patient Instructions: Chest Pain (ED), Iron Deficiency Anemia (ED) Additional Instructions: Take your iron tablets daily Follow up with PCP/clerical and office support workers Prescriptions: New ferrous sulfate 324 mg (65 mg iron) tablet,delayed release (DR/EC) 324 mg PO DAILY Qty: 30 0RF No Action rosuvastatin [Crestor] 20 mg tablet 20 mg PO DAILY Qty: 90 3RF mesalamine [Apriso] 0.375 gram capsule,extended release 24hr 1.5 g PO QAM Qty: 360 0RF enoxaparin [Lovenox] 60 mg/0.6 mL syringe 60 mg subcut Q12H Qty: 6 0RF Rx Instructions: lovenox bridging, commence 3 days before endoscopy and stop eliquis aspirin 81 mg tablet,delayed release (DR/EC) 81 mg PO DAILY Qty: 90 1RF alum-mag hydroxide-simeth [Maalox Advanced] 200-200-20 mg/5 mL suspension 5 ml PO 5XD PRN (Reason: dyspepsia) Qty: 355 0RF Rx Instructions: administer between meals and at bedtime sucralfate 1 gram tablet 1 tab PO BEDTIME pantoprazole 40 mg tablet,delayed release (DR/EC) 40 mg PO DAILY Qty: 60 2RF sucralfate [Carafate] 100 mg/mL suspension 10 ml PO BID Qty: 1000 1RF ondansetron 4 mg tablet,disintegrating 4 mg PO Q8H PRN (Reason: nausea and vomiting) Qty: 20 0RF diclofenac sodium 1 % gel 2 g topical QID PRN (Reason: elbow pain ) Qty: 100 0RF Rx Instructions: apply to single elbow, wrist or hand; for hand includes palm/fingers/back of hand ketotifen fumarate [Allergy Eye (ketotifen)] 0.025 % (0.035 %) drops 1 drp ophthalmic (eye) BID Qty: 5 6RF Rx Instructions: administer at least 8 hours apart peg-electrolyte soln 420 gram recon soln 240 ml PO Q10M Qty: 4000 0RF Rx Instructions: until fecal effluent is clear; do not exceed a total volume of 2,000 mL Eliquis 5 mg tablet 5 mg PO BID pantoprazole 40 mg tablet,delayed release (DR/EC) 40 mg PO BID Print Language: Azeri
[2024-03-08 23:42] LABS: MANUAL DIFF FLAG NO
[2024-03-08 23:43] LABS: Basophils Percent Auto 0.3 % (0-2); Eosinophils Absolute Auto 0.1 X10*3/uL (0.0-0.4); Eosinophils Percent Auto 0.6 % (0-4); Hematocrit 22.1 % (42.0-52.0); Hemoglobin 7.1 g/dl (14.0-18.0); Imm Gran Abs Auto 0.05 X10*3/uL (0.00-0.03); Imm Gran Pct Auto 0.4 % (0.0-0.4); Lymphocytes Absolute Auto 1.1 X10*3/uL (1.2-4.9); Lymphocytes Percent Auto 8.5 % (20-40); Mean Corpuscular HGB Conc 32.1 g/dl (31.0-36.0); Mean Corpuscular Hemoglobin 26.5 pg (27.0-33.0); Mean Corpuscular Volume 82.5 fL (80.0-98.0); Mean Platelet Volume 8.7 fL (9.4-12.4); Monocytes Percent Auto 8.2 % (2-11); Neutrophils Absolute Auto 10.5 x10*3/uL (2.0-8.3); Platelet Count 399 X10*3/uL (160-400); Red Blood Count 2.68 X10*6/uL (4.60-5.80); Red Cell Distribution Width 16.9 % (11.0-16.0); White Blood Count 12.7 X10*3/uL (4.8-10.8)
[2024-03-08 23:47] VITALS: BP 113/59; BP 93/48; PULSE 86; PULSE 89
[2024-03-08] MEDS: 0.9 % Sodium Chloride 1,000 ML 999 ML IV (23:48)
[2024-03-08 23:49] VITALS: BP 106/65; PULSE 92
[2024-03-08 23:49] LABS: Prothrombin Time 12.5 SEC (11.1-13.3)
[2024-03-08 23:52] LABS: Partial Thromboplastin Time 27.7 SEC (26.0-36.8)
[2024-03-08 23:59] LABS: Alanine Aminotransferase 16 U/L (0-40); Albumin Level 3.8 g/dL (3.5-5.0); Alkaline Phosphatase 59 U/L (39-117); Anion Gap 11 (12-20); Aspartate Amino Transferase 14 U/L (5-37); Bilirubin Total 0.3 mg/dL (0.0-1.0); Blood Urea Nitrogen 13 mg/dL (9-16); Calcium 8.6 mg/dL (8.4-10.2); Carbon Dioxide 24 mmol/L (22-29); Chloride 106 mmol/L (96-108); Creatinine Clr Calc Pharmacy 117.8; Estimated Glomerular Filt Rate > 60; Glucose Random 212 mg/dL (60-115); Magnesium 1.9 mg/dL (1.6-2.6); Potassium 3.9 mmol/L (3.3-5.1); Sodium 137 mmol/L (135-145); Total Protein 6.5 g/dL (6.5-8.0)
[2024-03-09 00:12] LABS: Troponin-I High Sensitivity < 2.7 ng/L (<3.5-35.0)
[2024-03-09 00:53] LABS: OBS Int Ctl Valid YES; OBS1 POSITIVE (NEGATIVE)
[2024-03-09 01:02] LABS: Iron 18 mcg/dL (45-160); Percent Iron Saturation 6 % (15-50); Total Iron Binding Capacity 316 mcg/dL (228-428); Unsaturated Iron Binding 298 ug/dL
[2024-03-09 01:42] VITALS: BP 109/53; PULSE 92; RESP 18; TEMP 36.9
[2024-03-09 02:01] VITALS: BP 109/62; PULSE 85; RESP 18; TEMP 36.8
[2024-03-09 04:00] VITALS: BP 110/59; PULSE 72; RESP 18; O2SAT 95
[2024-03-09 04:52] VITALS: BP 120/65; PULSE 80; RESP 17; TEMP 36.2
[2024-03-09 04:58] VITALS: BP 120/65; PULSE 80; RESP 17; TEMP 36.2; O2SAT 95
== END 2024-03-09 05:00 | disposition home or self-care (01) ==
PROVIDERS: Emergency Provider Internal Medicine
DX: R07.89 Other chest pain (principal); D50.0 Iron deficiency anemia secondary to blood loss (chronic); R11.2 Nausea with vomiting, unspecified; R42 Dizziness and giddiness; Z79.899 Other long term (current) drug therapy
CPT/HCPCS: 36415; 36430; 71045; 80053; 82272; 83540; 83735; 84484; 85025; 85610; 85730; 86850; 86900; 86901; 86923; 93005; 96360; 99285; P9016

== ENCOUNTER → 2024-03-08 23:16 | Outpatient (BNV) | payer OTHER, SELFPAY | PROVIDERS: Emergency Provider Internal Medicine; Visit Provider Internal Medicine Cardiovascular Disease | DX: R07.9 Chest pain, unspecified (principal) | CPT/HCPCS: 93010 ==

== ENCOUNTER 2024-03-12 08:54 | Outpatient (REF) | payer OTHER, SELFPAY ==
[2024-03-12 09:07] LABS: MANUAL DIFF FLAG NO
[2024-03-12 09:18] LABS: Basophils Absolute Auto 0.1 X10*3/uL (0.0-0.2); Basophils Percent Auto 0.6 % (0-2); Eosinophils Absolute Auto 0.2 X10*3/uL (0.0-0.4); Eosinophils Percent Auto 2.4 % (0-4); Hematocrit 31.8 % (42.0-52.0); Hemoglobin 9.9 g/dl (14.0-18.0); Imm Gran Abs Auto 0.04 X10*3/uL (0.00-0.03); Imm Gran Pct Auto 0.5 % (0.0-0.4); Lymphocytes Absolute Auto 2.2 X10*3/uL (1.2-4.9); Lymphocytes Percent Auto 26.9 % (20-40); Mean Corpuscular HGB Conc 31.1 g/dl (31.0-36.0); Mean Corpuscular Hemoglobin 26.8 pg (27.0-33.0); Mean Corpuscular Volume 86.2 fL (80.0-98.0); Mean Platelet Volume 8.7 fL (9.4-12.4); Monocytes Percent Auto 12.7 % (2-11); Neutrophils Absolute Auto 4.6 x10*3/uL (2.0-8.3); Neutrophils Percent Auto 56.9 % (45-73); Platelet Count 457 X10*3/uL (160-400); Red Blood Count 3.69 X10*6/uL (4.60-5.80); Red Cell Distribution Width 17.4 % (11.0-16.0); White Blood Count 8.1 X10*3/uL (4.8-10.8)
[2024-03-12 10:14] LABS: Alanine Aminotransferase 14 U/L (0-40); Aspartate Amino Transferase 12 U/L (5-37); Cholesterol 197 mg/dL (<200); HDL Cholesterol 36 mg/dL (>40); Iron 11 mcg/dL (45-160); LDL Cholesterol Calculated 138 mg/dL (<100); Percent Iron Saturation 3 % (15-50); Total Iron Binding Capacity 358 mcg/dL (228-428); Triglycerides 116 mg/dL (<150); Unsaturated Iron Binding 347 ug/dL
[2024-03-12 11:35] LABS: Folate 9.5 ng/mL (> or = 4.0); Vitamin B12 464 pg/mL (200-900)
== END 2024-03-12 08:55 | disposition home or self-care (01) ==
LOC: HO.LAB 08:54
PROVIDERS: PCP Internal Medicine; Visit Provider Internal Medicine
DX: K55.1 Chronic vascular disorders of intestine (principal); K52.9 Noninfective gastroenteritis and colitis, unspecified; D50.9 Iron deficiency anemia, unspecified; E78.5 Hyperlipidemia, unspecified
CPT/HCPCS: 36415; 80061; 82306; 82607; 82746; 83540; 84450; 84460; 85025; 85610; 99202

== ENCOUNTER 2024-03-12 09:12 | Outpatient (AMB) | payer OTHER, SELFPAY ==
[2024-03-12 09:48] LABS: Prothrombin Time Whole Bld POC 16.3 sec (11.1-13.5); ~PT, ~INR - Anti Coag Clinic 1.4 (0.9-1.1)
--- NOTE | 2024-03-12 10:55 | MHC.OFFVISCO ---
Intake Intake Visit Reasons: Anticoagulation Allergies No Known Allergies Allergy (Verified 03/12/24 09:33) Medication List - Last Reconciled 03/12/24 by Nolvia Trinidad RN alum-mag hydroxide-simeth 200-200-20 mg/5 mL (Maalox Advanced) 5 mL PO 5XD PRN aspirin 81 mg PO DAILY clopidogrel 75 mg PO DAILY diclofenac sodium 1% 2 grams topical QID PRN enoxaparin (Lovenox) 60 mg (0.6 mL) subcut Q12H enoxaparin mg subcut ferrous sulfate 324 mg PO DAILY ketotifen fumarate 0.025%(0.035%) (Allergy Eye (ketotifen)) 1 drp ophthalmic (eye) BID ondansetron 4 mg PO Q8H PRN pantoprazole 40 mg PO DAILY rosuvastatin (Crestor) 20 mg PO DAILY sucralfate (Carafate) 10 mL PO BID warfarin 5 mg PO DAILY Nursing Note pt and came to clinic together for the education, pt has been ill with abd /GI distress for years. he has had mesenteric ischemia and celiac artery occlusions, believed to have failed eliquis and has had several stents placed that have occluded. he is on a lovenox bridge with warfarin, aspirin and plavix, he had a nosebleed prior to his first ACS appt and called ACS. PCP was notified of pt status and request for more labs due to low H+H and occult +stool 03/08/24- pt advised to go to ER. He went to ER for C/P yesterday and no labs were ordered. Pt came today for ACS appt INR and education and labs ordered by PCP. Education completed with pt and his with good verbal understanding - and will go to ER with any clotting or bleeding symptoms. INR 1.4 out of therapeutic range Medications and supplements reviewed Patient status: MD is aware of his INR and wants him to continue on lovenox until INR therapeutic due to his multiple mesenteric artery clots. Medications or supplements: listed in EMR - they have concerns of which meds he should be on - being seen at [facility] and here. Enc to talk with Antonieta Lamb and [facility] and ask then to colloborate in his care Diet: fair, improved, barely eats any vegetables, mostly fruits and avocado Denies any signs and symptoms of bleeding or clotting or unusual bruising Bleeding, bruising, clotting discussed Nutritional guidance given: review food list weekly, eat a mix of fruits and vegetables , keep avocado in diet Dose: 5mg fri, with cont lovenox bridge per pcp, with f/u INR friday F/U INR Date : 03/15/24 pt enc to go to ER with any unusual bleeding or bruising, black or red bowel movements or hematuria ?? Patient and his both verbalizing understanding of instructions given. Anti-Coag Initial Assessment Social Hx Patient Tobacco Use Status: Former Tobacco user Tobacco use type: Cigarette and Cigar Alcohol intake frequency: does not drink Housing: Apartment current occupational exposures/hazards: No Cardiovascular Hx: HTN, Angina, [place] (PRE-IN AGE 28) and Varicose Veins (SPIDER VEINS ) Lung Disease HX: DVT/PE (MESENTERIC MULTIPLE CLOTS) Musculoskeletal Hx: Arthritis Blood Disorder Hx: Anemia GI Hx: Bleeding (GI, rectal) Neurological Hx: Serious Head Injury ( A CHILD HEAD INJURY REQUIRUIRING SURGERY ) Cancer HX: No (FAMILY HX ) Psych. Illness/Depression: No Surgeries: 4 SURGERIES ON MESENTARY APPENDECTOMY JUL 21 Questionnaires HAS-BLED Does the patient had uncontrolled Hypertension?: No Does the patient have renal disease?: No Does the patient have liver disease?: No Does the patient have a history of stroke?: No Has the patient had major bleeding or predisposition to bleeding?: Yes Does the patient have labile INRs?: Yes Is the patient over 65 years of age?: No Is the patient on medications that gives them a predisposition to bleeding?: Yes Does the patient use alcohol?: No HAS-BLED Score: 3 CHADSVASC Age: <65 Gender: Male Does the patient have a history of CHF?: No Does the patient have a history of Hypertension?: No Does the patient have a history of Stroke/TIA/Thromboembolism?: Yes Does the patient have a history of Vascular Disease (prior IN, PAD or aortic plaque)?: Yes Does the patient have a history of Diabetes?: No CHADS VACS Score: 3 Maria C Prediction Score Rsk VTE Previous VTE, excluding superficial vein thrombosis: Yes Reduced mobility: No Already known Thrombophilic Condition: Yes With-in last month Trauma and/or Surgery: Yes Elderly 70 year or older: No Heart and/or Respiratory Failure: No Acute Myocardial infarction and/or Ischemic Stroke: No Acute Infection and/or Rheumatologic Disorder: No Obesity (BMI 30 or greater): No Ongoing Hormonal Treatment: No Score: 8 Maria C Score less than 4; Low Risk of VTE Maria C Score 4 or greater; High Risk of VTE Coding Level of Care Code New Patient Level 2 Diagnoses Current use of anticoagulant therapy Z79.01 Results AMB INR Fingerstick AMB INR Fingerstick 1.4 Last Edit by Nolvia Trinidad RN on 03/12/24 09:50 manual entry Assessment & Plan Assessment & Plan (1) Current use of anticoagulant therapy: Code(s): Z79.01 - custodial (current) use of anticoagulants Category: Medical
== END 2024-03-12 15:35 | disposition home or self-care (01) ==
LOC: HO.ACS 09:12
PROVIDERS: PCP Internal Medicine; Visit Provider Internal Medicine
DX: Z79.01 Long term (current) use of anticoagulants (principal)

== ENCOUNTER 2024-03-15 10:05 | Outpatient (AMB) | payer OTHER, SELFPAY ==
--- NOTE | 2024-03-15 10:22 | MHC.OFFVISCO ---
Intake Intake Visit Reasons: Anticoagulation Allergies No Known Allergies Allergy (Verified 03/15/24 10:13) Medication List - Last Reconciled 03/15/24 by Zuri Carbone RN alum-mag hydroxide-simeth 200-200-20 mg/5 mL (Maalox Advanced) 5 mL PO 5XD PRN aspirin 81 mg PO DAILY cholecalciferol (vitamin D3) 1,250 mcg PO QWEEK 3 months clopidogrel 75 mg PO DAILY diclofenac sodium 1% 2 grams topical QID PRN enoxaparin (Lovenox) 60 mg See Protocol subcut Q12H enoxaparin mg See Protocol subcut ferrous sulfate 324 mg PO DAILY ketotifen fumarate 0.025%(0.035%) (Allergy Eye (ketotifen)) 1 drp ophthalmic (eye) BID ondansetron 4 mg PO Q8H PRN pantoprazole 40 mg PO DAILY rosuvastatin (Crestor) 20 mg PO DAILY sucralfate (Carafate) 10 mL PO BID warfarin 5 mg See Protocol PO DAILY Nursing Note INR 1.6-?? out of therapeutic range of 2-3 Medications and supplements reviewed Patient status: acs visit number 2, pt on lovenox, pt instructed to go to ed with any bleeding or bruising, purpose of lovenox bridging discussed with pt pt with c.o itch on top of head, no redness or edema noted, enc to discuss with pcp Medications or supplements: vit d 1250mcg weekly x 13 weeks Diet: appetite good Denies any signs and symptoms of bleeding or clotting or unusual bruising Bleeding, bruising, clotting discussed Nutritional guidance given: no greens , eat reds to raise Dose: 7.5mg today and tomm, cont lovenox pt states took 5mg on friday in error, instructed to follow dosing instructions. F/U INR Date : fri03/17/24?? Patient verbalizing understanding of instructions given. Anti-Coag Initial Assessment Social Hx Patient Tobacco Use Status: Former Tobacco user Tobacco use type: Cigarette and Cigar Alcohol intake frequency: does not drink Cardiovascular Hx: HTN, Angina, [place] (PRE-VA AGE 28) and Varicose Veins (SPIDER VEINS ) Lung Disease HX: DVT/PE (MESENTERIC MULTIPLE CLOTS) Musculoskeletal Hx: Arthritis Blood Disorder Hx: Anemia GI Hx: Bleeding (GI, rectal) Neurological Hx: Serious Head Injury ( A CHILD HEAD INJURY REQUIRUIRING SURGERY ) Cancer HX: No (FAMILY HX ) Psych. Illness/Depression: No Coding Level of Care Code Est Patient Level 1 Diagnoses Current use of anticoagulant therapy Z79.01 Results AMB INR Fingerstick AMB INR Fingerstick 1.6 Last Edit by Zuri Carbone RN on 03/15/24 10:27 Assessment & Plan Assessment & Plan (1) Current use of anticoagulant therapy: Code(s): Z79.01 - long-term (current) use of anticoagulants Category: Medical
[2024-03-16 08:02] LABS: Prothrombin Time Whole Bld POC 19.4 sec (11.1-13.5); ~PT, ~INR - Anti Coag Clinic 1.6 (0.9-1.1)
== END 2024-03-15 10:46 | disposition home or self-care (01) ==
LOC: HO.ACS 10:05
PROVIDERS: PCP Internal Medicine; Visit Provider Internal Medicine
DX: Z79.01 Long term (current) use of anticoagulants (principal)

== ENCOUNTER → 2024-03-15 10:05 | Outpatient (BNVA) | payer OTHER, SELFPAY | PROVIDERS: PCP Internal Medicine; Visit Provider Internal Medicine | DX: K55.1 Chronic vascular disorders of intestine (principal); Z51.81 Encounter for therapeutic drug level monitoring; Z79.01 Long term (current) use of anticoagulants | CPT/HCPCS: 85610; 99211 ==

== ENCOUNTER 2024-03-17 10:08 | Outpatient (AMB) | payer OTHER, SELFPAY ==
[2024-03-17 10:17] LABS: ~PT, ~INR - Anti Coag Clinic 2.3 (0.9-1.1)
--- NOTE | 2024-03-17 10:54 | MHC.OFFVISCO ---
Intake Intake Visit Reasons: Anticoagulation Allergies No Known Allergies Allergy (Verified 03/17/24 10:11) Medication List - Last Reconciled 03/17/24 by Ann-Marie Andrade RN alum-mag hydroxide-simeth 200-200-20 mg/5 mL (Maalox Advanced) 5 mL PO 5XD PRN aspirin 81 mg PO DAILY cholecalciferol (vitamin D3) 1,250 mcg PO QWEEK 3 months clopidogrel 75 mg PO DAILY diclofenac sodium 1% 2 grams topical QID PRN enoxaparin (Lovenox) 60 mg See Protocol subcut Q12H enoxaparin mg See Protocol subcut ferrous sulfate 324 mg PO DAILY ketotifen fumarate 0.025%(0.035%) (Allergy Eye (ketotifen)) 1 drp ophthalmic (eye) BID ondansetron 4 mg PO Q8H PRN pantoprazole 40 mg PO DAILY rosuvastatin (Crestor) 20 mg PO DAILY sucralfate (Carafate) 10 mL PO BID warfarin 5 mg See Protocol PO DAILY Nursing Note PT.DENIES ANY CP,SOB OR SX OF BLEEDING. STOP LOVENOX TODAY AND ALTERNATE 7.5MGM WITH 5MGM AND FOLLOW-UP HERE ON 03/22. PT.IS AWARE THAT HE MAY RE-INTRODUCE GREENS NOW AND WILL BALANCE WITH REDS/FRUITS. PT.AND VERB.GOOD UNBDERSTANDING OF DOSING INSTR. Anti-Coag Initial Assessment Social Hx Patient Tobacco Use Status: Former Tobacco user Tobacco use type: Cigarette and Cigar Alcohol intake frequency: does not drink Cardiovascular Hx: HTN, Angina, [place] (PRE-GA AGE 28) and Varicose Veins (SPIDER VEINS ) Lung Disease HX: DVT/PE (MESENTERIC MULTIPLE CLOTS) Musculoskeletal Hx: Arthritis Blood Disorder Hx: Anemia GI Hx: Bleeding (GI, rectal) Neurological Hx: Serious Head Injury ( A CHILD HEAD INJURY REQUIRUIRING SURGERY ) Cancer HX: No (FAMILY HX ) Psych. Illness/Depression: No Coding Level of Care Code Est Patient Level 1 Diagnoses Current use of anticoagulant therapy Z79.01 Assessment & Plan Assessment & Plan (1) Current use of anticoagulant therapy: Code(s): Z79.01 - buttermaker continuous churn (current) use of anticoagulants Category: Medical Medications: Discontinued enoxaparin (Lovenox) lovenox bridging, commence 3 days before endoscopy and stop eliquis Discontinued Reason: Patient no longer taking 60 mg See Protocol subcut Q12H 6 mL 0RF
== END 2024-03-17 10:57 | disposition home or self-care (01) ==
LOC: HO.ACS 10:08
PROVIDERS: PCP Internal Medicine; Visit Provider Internal Medicine
DX: Z79.01 Long term (current) use of anticoagulants (principal)

== ENCOUNTER → 2024-03-17 10:08 | Outpatient (BNVA) | payer OTHER, SELFPAY | PROVIDERS: PCP Internal Medicine; Visit Provider Internal Medicine | DX: K55.1 Chronic vascular disorders of intestine (principal); Z95.828 Presence of other vascular implants and grafts; Z51.81 Encounter for therapeutic drug level monitoring; Z79.01 Long term (current) use of anticoagulants | CPT/HCPCS: 85610; 99211 ==

== ENCOUNTER 2024-03-22 10:37 | Outpatient (REF) | payer OTHER, SELFPAY | END 2024-03-22 10:38 | disposition home or self-care (01) | LOC: HO.LAB 10:37 | PROVIDERS: PCP Internal Medicine; Visit Provider Internal Medicine | DX: K55.1 Chronic vascular disorders of intestine (principal); Z95.828 Presence of other vascular implants and grafts; Z51.81 Encounter for therapeutic drug level monitoring; Z79.01 Long term (current) use of anticoagulants | CPT/HCPCS: 85610; 99212 ==

== ENCOUNTER 2024-03-22 11:27 | Inpatient (IN) | payer OTHER, SELFPAY ==
[2024-03-22] VITALS (12 sets, daily range): BP systolic 104–145; BP diastolic 55–82; PULSE 74–99; RESP 15–20; TEMP 36.6–37.1; O2SAT 99–100; BMI 22.2
--- NOTE | ~2024-03-22 | CT_ITS ---
EXAMINATION: CT ANGIOGRAM ABDOMEN AND PELVIS CLINICAL INFORMATION: abdominal pain. SMA stent COMPARISON: CTA chest Feb 13 2024 TECHNIQUE: Multiple axial images were obtained through the abdomen and pelvis following the administration of 80 mL of Omnipaque 350 intravenous contrast. Images were reviewed on a dedicated 3-D workstation. This CT examination was performed using dose optimization techniques as appropriate, variously including the following: *Automated exposure control *Adjustment of mA and/or kV according to patient size (this includes techniques or standardized protocols for targeted exams where dose is matched to indication/reason for exam; i.e. extremities or head) *Use of iterative reconstruction technique DLP: 323 mGy-cm FINDINGS: VASCULAR: Abdominal aorta: Patent and normal in caliber Iliac arteries: Patent and normal in caliber Mesenteric arteries: The celiac artery is occluded proximally. SMA stent in place. Stent is patent. The distal branches opacify normally. Renal arteries: Patent NONVASCULAR: Lung Bases: The lungs are clear with no evidence of inflammation or nodules. Liver, Gallbladder, Biliary Tree: The liver is normal in size, shape, and attenuation. No focal hepatic lesion or biliary ductal dilatation is present. The gallbladder is unremarkable with no evidence of radiopaque gallstones, gallbladder wall thickening, or pericholecystic inflammatory changes. Pancreas: Unremarkable. Spleen: Unremarkable. Adrenal Glands: Unremarkable. Kidneys and Ureters: The kidneys are normal in size, shape, and attenuation. No hydronephrosis or hydroureter or calculi seen. No perinephric stranding. Bladder: Unremarkable. Gastrointestinal Tract: The small and large bowel are unremarkable. The appendix is unremarkable. Abdominal Wall: No hernia is demonstrated. Lymph Nodes: Normal. Pelvic Viscera: Unremarkable. Osseous Structures: Unremarkable. CT/CT angio abdomen pelvis IMPRESSION: Patent SMA stent. No secondary signs to suggest mesenteric ischemia.
[2024-03-22 11:55] LABS: MANUAL DIFF FLAG NO
[2024-03-22 11:58] LABS: Basophils Absolute Auto 0.1 X10*3/uL (0.0-0.2); Basophils Percent Auto 0.6 % (0-2); Eosinophils Absolute Auto 0.1 X10*3/uL (0.0-0.4); Hematocrit 21.7 % (42.0-52.0); Imm Gran Abs Auto 0.05 X10*3/uL (0.00-0.03); Imm Gran Pct Auto 0.5 % (0.0-0.4); Lymphocytes Percent Auto 20.7 % (20-40); Mean Corpuscular Hemoglobin 26.3 pg (27.0-33.0); Mean Corpuscular Volume 87.9 fL (80.0-98.0); Monocytes Absolute Auto 0.9 X10*3/uL (0.1-1.2); Monocytes Percent Auto 8.8 % (2-11); Neutrophils Absolute Auto 6.7 x10*3/uL (2.0-8.3); Neutrophils Percent Auto 68.4 % (45-73); Platelet Count 582 X10*3/uL (160-400); Red Blood Count 2.47 X10*6/uL (4.60-5.80); Red Cell Distribution Width 17.6 % (11.0-16.0); White Blood Count 9.9 X10*3/uL (4.8-10.8)
[2024-03-22 12:03] LABS: Hemoglobin 6.5 g/dl (14.0-18.0)
[2024-03-22 12:06] LABS: INTERNATIONAL NORM RATIO 3.7 (0.9-1.1); Prothrombin Time 44.5 SEC (11.1-13.3)
[2024-03-22 12:13] LABS: Alanine Aminotransferase 11 U/L (0-40); Albumin Level 4.1 g/dL (3.5-5.0); Alkaline Phosphatase 64 U/L (39-117); Anion Gap 12 (12-20); Aspartate Amino Transferase 10 U/L (5-37); Bilirubin Direct 0.1 mg/dL (0.0-0.5); Bilirubin Total 0.3 mg/dL (0.0-1.0); Blood Urea Nitrogen 9 mg/dL (9-16); Calcium 9.1 mg/dL (8.4-10.2); Carbon Dioxide 23 mmol/L (22-29); Chloride 111 mmol/L (96-108); Creatinine Clr Calc Pharmacy 130.2; Estimated Glomerular Filt Rate > 60; Glucose Random 121 mg/dL (60-115); Lipase 91 U/L (8-78); Potassium 4.6 mmol/L (3.3-5.1); Sodium 141 mmol/L (135-145); Total Protein 6.9 g/dL (6.5-8.0)
--- NOTE | 2024-03-22 13:13 | ED.ABDPAIN ---
HPI - Abdominal Pain General Chief Complaint: Abdominal Pain Stated Complaint: Nausea Time Seen by Provider: 03/22/24 13:05 Source: patient Mode of arrival: ambulatory Limitations: no limitations History of Present Illness HPI narrative: This is a 48 years old male with history of SMA stent anticoagulated with warfarin and on Plavix presented to the emergency department complaining of abdominal pain and melena. Also complaining of nausea and vomiting. Pain is localized in the periumbilical area without radiation. MD elicited complaint: abdominal pain and other (Melena) Pertinent past history: other (SMA stent) Onset (ago): hour(s) (8) Pain Consistency: constant Location: periumbilical Severity: moderate Quality: cramping Radiation: none Migration to: no migration Exacerbating factors: nothing Relieving factors: nothing Related Data Home Medications ?Medication ?Instructions ?Recorded ?Confirmed clopidogrel 75 mg tablet 75 mg PO DAILY 03/12/24 03/12/24 warfarin 5 mg tablet 5 mg PO DAILY 03/12/24 03/22/24 Previous Rx's ?Medication ?Instructions ?Recorded diclofenac sodium 1 % topical gel 2 g topical QID PRN elbow pain 11/29/21 #100 grams ketotifen fumarate 0.025 % (0.035 1 drp ophthalmic (eye) BID #5 mL 03/01/22 %) eye drops (Allergy Eye (ketotifen)) aluminum-mag hydroxide-simethicone 5 ml PO 5XD PRN dyspepsia #355 mL 10/29/22 200 mg-200 mg-20 mg/5 mL oral susp (Maalox Advanced) rosuvastatin 20 mg tablet (Crestor) 20 mg PO DAILY #90 tabs 03/01/23 ondansetron 4 mg disintegrating 4 mg PO Q8H PRN nausea and 01/30/24 tablet vomiting #20 tabs pantoprazole 40 mg tablet,delayed 40 mg PO DAILY #60 tabs 02/02/24 release sucralfate 100 mg/mL oral 10 ml PO BID #1,000 mL 02/02/24 suspension (Carafate) aspirin 81 mg tablet,delayed 81 mg PO DAILY #90 tabs 02/18/24 release ferrous sulfate 324 mg (65 mg 324 mg PO DAILY #30 tabs 03/09/24 iron) tablet,delayed release cholecalciferol (vitamin D3) 1,250 1,250 mcg PO QWEEK 3 months #13 03/12/24 mcg (50,000 unit) capsule caps Allergies Allergy/AdvReac Type Severity Reaction Status Date / Time No Known Allergies Allergy Verified 03/22/24 11:39 Review of Systems Eyes: Reports no additional eye complaints Reports system reviewed and no additional complaints, except as documented Respiratory: Reports no additional respiratory complaints Gastrointestinal: Denies hematemesis and Reports other (Melena) PMFSH Past Medical History Attestation statement: The following information was validated with the patient. Medical History (Updated 03/22/24 @ 15:21 by Santos Wallis MD) Anemia Vitamin D deficiency Mesenteric artery thrombosis CAD (coronary artery disease) Hyperlipidemia Iron deficiency anemia 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 Maternal Aunt No problems noted. Social History Social History Household Members: Spouse Housing: Apartment Do you presently have visiting nurse or other home services: No Alcohol intake: former Patient Tobacco Use Status: Former Tobacco user Tobacco use type: Cigarette and Cigar Cigarettes Per Day: 2 Years Smoked: 3 Smoked in Last 30 Days: Yes e-Cigarette/Vaping Use: Never Used Use of substances other than those prescribed or required for medical reasons: Yes Substance Use Type: Marijuana Advance Directives: No Advance Directives Information Provided: Yes Do you have a plan to hurt others: No Plan service: No Current occupational status: employed Current occupational exposures/hazards: No Cognitive needs: No Hearing needs: No Vision needs: No Physical Exam ED Vital Signs: Vital Signs - 24 hr 03/22/24 11:35 03/22/24 13:41 03/22/24 14:00 Temperature 98.2 F 98.1 F 98.1 F Pulse Rate 99 81 99 Respiratory Rate 20 18 18 Blood Pressure 141/62 H 135/69 129/80 Pulse Oximetry 100 99 100 Oxygen Delivery Method Room Air Room Air Room Air 03/22/24 14:52 03/22/24 15:10 Temperature 98.8 F 98 F Pulse Rate 88 87 Respiratory Rate 18 18 Blood Pressure 129/80 123/66 Pulse Oximetry Oxygen Delivery Method BMI result Body Mass Index 22.2 Const General: cooperative Nutritional Appearance: average body habitus Orientation/consciousness: oriented to person and patient oriented x3 Limitations: no limitations HENMT Head: Yes normal to inspection Ears: hearing grossly normal bilaterally Face and sinus: Yes normal facial exam Mouth: Normal oral and palatal mucosa present Neck Neck: Yes normal visual inspection Chest Chest palpation & inspection: normal inspection of the chest Resp Effort & Inspection: normal respiratory effort Auscultation: clear to auscultation bilaterally Cardio Jugular venous distension: no JVD Rate: regular rate Rhythm: regular rhythm GI Inspection: Yes normal to inspection Palpation (GI): Soft to palpation, not firm and nontender Auscultation: normal bowel sounds Rectal Exam - Male: Yes heme positive stool Neuro General: oriented to person and patient oriented x3 Course Reevaluation(s) Reevaluation #1: Spoke with GI DR Garduno Time: 13:48 Reevaluation #2: Seen by Dr Garduno in ED Time: 14:10 Reevaluation #3: I spoke with the hospitalist Dr Castillo patient will be admitted CTA abdomen is pending, I so let Dr. Sandoval know of the pending CTA, I am off shift now Time: 16:07 Medical Decision Making Medical Decision Making MDM Narrative: Patient presented complaining of abdominal pain nausea will check labs CTA of the abdomen given the history of SMA stent Differential Diagnosis Differential Diagnoses: The differential diagnosis associated with the presentation includes Peptic ulcer disease/occluded SMA stent/perforated bowel Lab Data 03/22/24 11:50 03/22/24 11:50 Labs: Lab Results 03/22/24 03/22/24 03/22/24 Range/Units 11:50 13:38 13:40 WBC 9.9 (4.8-10.8) X10*3/uL RBC 2.47 L D (4.60-5.80) X10*6/uL Hgb 6.5 L* D (14.0-18.0) g/dl Hct 21.7 L D (42.0-52.0) % MCV 87.9 (80.0-98.0) fL MCH 26.3 L (27.0-33.0) pg MCHC 30.0 L (31.0-36.0) g/dl RDW 17.6 H (11.0-16.0) % Plt Count 582 H D (160-400) X10*3/uL MPV 9.0 L (9.4-12.4) fL Immature Gran % (Auto) 0.5 H (0.0-0.4) % Neut % (Auto) 68.4 (45-73) % Lymph % (Auto) 20.7 (20-40) % [place] % (Auto) 8.8 (2-11) % Eos % (Auto) 1.0 (0-4) % Baso % (Auto) 0.6 (0-2) % Lymph # (Auto) 2.0 (1.2-4.9) X10*3/uL [place] # (Auto) 0.9 (0.1-1.2) X10*3/uL Eos # (Auto) 0.1 (0.0-0.4) X10*3/uL Baso # (Auto) 0.1 (0.0-0.2) X10*3/uL Abs Immat Gran (auto) 0.05 H (0.00-0.03) X10*3/uL Absolute Neuts (auto) 6.7 (2.0-8.3) x10*3/uL Absolute Nucleated RBC 0.000 (0.0-0.012) X10*3/uL Nucleated RBC % (auto) 0.0 (0.0-0.2) /100WBC PT 44.5 H D (11.1-13.3) SEC INR 3.7 H D (0.9-1.1) Sodium 141 (135-145) mmol/L Potassium 4.6 (3.3-5.1) mmol/L Chloride 111 H (96-108) mmol/L Carbon Dioxide 23 (22-29) mmol/L Anion Gap 12 (12-20) BUN 9 (9-16) mg/dL Creatinine 0.73 (0.5-1.4) mg/dL Estim Creat Clear Calc 130.2 Estimated GFR > 60 Random Glucose 121 H (60-115) mg/dL Calcium 9.1 (8.4-10.2) mg/dL Total Bilirubin 0.3 (0.0-1.0) mg/dL Direct Bilirubin 0.1 (0.0-0.5) mg/dL AST 10 (5-37) U/L ALT 11 (0-40) U/L Alkaline Phosphatase 64 (39-117) U/L Total Protein 6.9 (6.5-8.0) g/dL Albumin 4.1 (3.5-5.0) g/dL Lipase 91 H (8-78) U/L Stool Occult Blood POSITIVE (NEGATIVE) Blood Type O Positive Antibody Screen NEGATIVE Crossmatch See Detail Medications Administered Discontinued Medications Generic Name Dose Route Start Last Admin Trade Name Freq PRN Reason Stop Dose Admin Sodium Chloride 100 mls @ 100 mls/hr 03/22/24 13:05 03/22/24 14:58 Ns IV 03/22/24 14:04 100 mls/hr ONCE ONE Administration Iohexol 100 ml 03/22/24 15:52 03/22/24 15:53 Iohexol 350 Mg/Ml 100 Ml Infus..Btl IV 03/22/24 15:53 80 ml ONCE ONE Administration Morphine Sulfate 4 mg 03/22/24 13:06 03/22/24 13:28 Morphine Sulfate 4 Mg/Ml Cartridge IVPUSH 03/22/24 13:07 4 mg ONCE ONE Administration Protocol Ondansetron HCl 4 mg 03/22/24 13:11 03/22/24 13:28 Ondansetron Hcl 4 Mg/2 Ml Vial IVPUSH 03/22/24 13:12 4 mg ONCE ONE Administration Pantoprazole Sodium 40 mg 03/22/24 13:06 03/22/24 13:29 Pantoprazole Sodium 40 Mg/10 Ml Vial IVPUSH 03/22/24 13:07 40 mg ONCE ONE Administration Critical Care Time Critical Care Time Critical Care Time: Yes Total Critical Care Time: 60 Attestation: Blood transfusion IV narcotic meds Discharge Plan Discharge Clinical Impression: Acute GI bleeding Patient Disposition: Admitted As Inpatient Print Language: Cook Islander
[2024-03-22] MEDS: ondansetron HCL 4 MG/2 ML VIAL IVPUSH (13:28)
[2024-03-22] MEDS: Morphine Sulfate 4 MG/ML CARTRIDGE IVPUSH ×2 (13:28→16:48)
[2024-03-22] MEDS: Pantoprazole Sodium 40 MG/10 ML VIAL IVPUSH ×2 (13:29→16:44)
[2024-03-22 14:00] LABS: OBS Int Ctl Valid YES; OBS1 POSITIVE (NEGATIVE)
--- NOTE | 2024-03-22 14:17 | PM.GICN ---
History of Present Illness Data of Consult Service Date: 03/22/24 Primary Care Provider: Ngoc Fung MD HPI Reason for consult: anemia 48 yr old m w/ hx of mesenteric stenting, and thrombosis with right hemicolectomy, smoking hx and HLP who I am seeing for anemia assessment Patient was in normal state of health until earlier today when he had several bouts of coffee colored emesis as well as diarrhea and mild epigastric pain without radiaiton and no exacerbating or relieiving factors. He is on aspirin and coumadin, supposed to be on PPI but not taking regularly. He denies alcohol, no sick contacts, no badly cooked food ingestion. no recent antibiotics Currently he feels nausea but not vomiting. HGB was 6.5 g/dl having been 9 g/dl 1 month ago but he required 1 unit of blood at that time. Had CTA at [facility] same day with patent SMA stent LAST EGD,colonosocpy: 02/02/24 with ablation of AVm and erosive esophagitis noted, mild gastritis. Review of Systems Review of Systems: Constitutional : No Weight loss, No Fever, No Chills ENT/Mouth : No sore throat, No Rhinorrhea Eyes: No Swelling, No Redness Cardiovascular : No Chest Pain, No SOB, No Edema Respiratory : No Cough, No Sputum, No Wheezing Gastrointestinal : see HPI Genitourinary : NO Dysuria, No Urinary Frequency, No Hematuria, No Urgency Musculoskeletal : No joint pain, No Myalgias, No Joint Swelling Skin : No Skin Lesions, No rash Neuro : No Weakness, No Numbness, No Dizziness, No Headache Psych : No Anxiety/Panic, No Depression Heme/Lymph: No Bruising, No Lymphadenopathy Endocrine : No Polyuria, No Polydipsia Fatigue All other systems reviewed and are negative. [facility] Past Medical History Medical History Anemia Vitamin D deficiency Mesenteric artery thrombosis CAD (coronary artery disease) Hyperlipidemia Iron deficiency anemia Superior mesenteric artery stenosis Celiac artery stenosis Vaccine refused by patient (~09/05/23) Cigar smoker unmotivated to quit Chronic vascular insufficiency of intestine Impaired fasting glucose Diarrhea Granular cell tumor Chronic GERD Family History Family History Maternal Aunt No problems noted. Maternal Aunt No problems noted. Surgical History Surgical History H/O heart artery stent History of esophagogastroduodenoscopy (EGD) Hx of colectomy Hx of appendectomy Hx of colonoscopy Social History Social History Household Members: Spouse Housing: Apartment Do you presently have visiting nurse or other home services: No Alcohol intake: former Patient Tobacco Use Status: Current everyday Tobacco user Tobacco use type: Cigar Cigarettes Per Day: 2 Years Smoked: 3 e-Cigarette/Vaping Use: Never Used Substance Use Type: Marijuana service: No Current occupational status: employed Current occupational exposures/hazards: No Cognitive needs: No Hearing needs: No Vision needs: No Meds Allergies Allergy/AdvReac Type Severity Reaction Status Date / Time No Known Allergies Allergy Verified 03/22/24 11:39 Home Medications ?Medication ?Instructions ?Recorded ?Confirmed ?Last Taken ?Type clopidogrel 75 mg tablet 75 mg PO DAILY 03/12/24 03/22/24 03/21/24 History warfarin 5 mg tablet 5 mg PO Q48H 03/12/24 03/22/24 03/22/24 History cholecalciferol (vitamin D3) 1,250 1,250 mcg PO FR 03/22/24 03/22/24 03/21/24 History mcg (50,000 unit) capsule mesalamine 0.375 gram 1.5 g PO DAILY 03/22/24 03/22/24 Unknown History capsule,extended release 24 hr (Apriso) pantoprazole 40 mg tablet,delayed 40 mg PO DAILY@0630 03/22/24 03/22/24 03/21/24 History release sucralfate 100 mg/mL oral 10 ml PO BID 03/22/24 03/22/24 Unknown History suspension (Carafate) warfarin 5 mg tablet 7.5 mg PO Q48H 03/22/24 03/22/24 03/20/24 History Physical Exam Vital Signs: Vital Signs: Last Vital Signs Temp 98.1 F 03/22/24 13:41 Pulse 81 03/22/24 13:41 Resp 18 03/22/24 13:41 BP 135/69 03/22/24 13:41 Pulse Ox 99 03/22/24 13:41 O2 Del Method Room Air 03/22/24 13:41 BMI result Body Mass Index 22.2 EXAM: GENERAL: The patient is thin, VITAL SIGNS:see workflow HEENT: Nonicteric sclerae, PERRLA, EOMI. Oropharynx clear. Moist mucous membranes. Conjunctivae appear well perfused. No thyroid mass. CHEST: Chest wall is nontender. HEART: Regular rate and rhythm without murmurs. LUNGS: Clear to auscultation bilaterally. ABDOMEN: Soft, positive bowel sounds, tender epigastrium, no organomegaly.no flank tenderness SKIN: No rash, no excessive bruising, petechiae, or purpura. NEUROLOGIC: Cranial nerves II-XII intact without motor/sensory deficit. Psych: slightly low affect Results Labs 03/22/24 19:58 03/22/24 11:50 Labs: Short CBC 03/22/24 Range/Units 11:50 WBC 9.9 (4.8-10.8) X10*3/uL Hgb 6.5 L* D (14.0-18.0) g/dl Hct 21.7 L D (42.0-52.0) % Plt Count 582 H D (160-400) X10*3/uL BMP 03/22/24 11:50 Sodium 141 Potassium 4.6 Chloride 111 H Carbon Dioxide 23 BUN 9 Creatinine 0.73 Calcium 9.1 Liver Function 03/22/24 Range/Units 11:50 Total Bilirubin 0.3 (0.0-1.0) mg/dL Direct Bilirubin 0.1 (0.0-0.5) mg/dL AST 10 (5-37) U/L ALT 11 (0-40) U/L Alkaline Phosphatase 64 (39-117) U/L Albumin 4.1 (3.5-5.0) g/dL Assessment and Plan (1) Anemia: Qualifiers: Anemia type: unspecified type Qualified Code(s): D64.9 - Anemia, unspecified Status: Acute Plan 1/ Anemia on background of raised INR, aspirin use, smoking and known esophagitis and gastritis, may have worsening of esophagitis or underlying ulcers', non compliant with PPI -other possibility is bleeding from AVM again PLAN: 1/ Resuscitate with fluids, PRBC prn, target 8 g.d/l 2/ PPI compliance salvage determiner, meantime can give IV PPI BID e.g pantoprazole 40 mg bID 3/ smoking cessation 4/ Recommend not reversing coumadin at this time as he is high risk for stent thrombosis, will plan for EGD possibly Friday, if INR <2 can commence heparin gtt --can cont aspirin, consider holding plavix for short time 5/ can have clears for the meantime 6/ if no cause on EGD then can consider octreotide injections to reduce GI bleeding risk vs thalidomide Procedures Date of Service Date of Service: 03/23/24
--- NOTE | 2024-03-22 15:10 | PC.NURSE ---
Patient declining 2nd IV to be placed, provider aware and okay to pause blood transfusion while patient goes to CT scan , ct staff at bedside to obtain consent
[2024-03-22] MEDS: iohexoL 350 MG/ML 100 ML INFUS..BTL IV (15:53)
--- NOTE | 2024-03-22 16:30 | PM.IMHP ---
History of Present Illness Date of Service: 03/22/24 Chief Complaint: Dizziness/black stools 48-year-old gentleman with past medical history significant for 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, history of hyperlipidemia, iron deficiency anemia, history of peptic ulcer disease, depression, internal hemorrhoids, came for follow-up on [facility], but felt nauseous and dizzy therefore referred to [place] emergency room, as per patient he has been feeling dizzy with minimal activity of few days' duration, also Complaining of nausea , mid abdominal discomfort and black stools of couple days' duration, denies coffee-ground emesis, no bright red blood per rectum, is on Coumadin, Plavix, aspirin, and ED noted to have hemoglobin 6.5, hematocrit 21.7, last hematocrit 31.8 on March 12 after receiving blood transfusion, INR 3.7, patient receiving blood transfusion, no recurrent black stools noted since arrival to ED, CTA showed patent stent, patient evaluated by Gastroenterology they recommend to continue IV PPI, and recommend not to reverse PT INR since high risk for stent thrombosis, possible EGD on Friday. Review of Systems Review of Systems: General no headache , no fever chills. CVS no chest pain, no palpitation. Respiratory no cough, no sob Gastrointestinal mid abdominal pain, nausea and black stools no urgency no frequency Musculoskeletal no pain All other system reviewed and are negative. [facility] Medical History Anemia Vitamin D deficiency Mesenteric artery thrombosis CAD (coronary artery disease) Hyperlipidemia Iron deficiency anemia Superior mesenteric artery stenosis Celiac artery stenosis Vaccine refused by patient (~09/05/23) Cigar smoker unmotivated to quit Chronic vascular insufficiency of intestine Impaired fasting glucose Diarrhea Granular cell tumor Chronic GERD Family History Maternal Aunt No problems noted. Maternal Aunt No problems noted. Surgical History H/O heart artery stent History of esophagogastroduodenoscopy (EGD) Hx of colectomy Hx of appendectomy Hx of colonoscopy Social History Household Members: Spouse Housing: Apartment Do you presently have visiting nurse or other home services: No Alcohol intake: former Patient Tobacco Use Status: Current everyday Tobacco user Tobacco use type: Cigar Cigarettes Per Day: 2 Years Smoked: 3 e-Cigarette/Vaping Use: Never Used Substance Use Type: Marijuana service: No Current occupational status: employed Current occupational exposures/hazards: No Cognitive needs: No Hearing needs: No Vision needs: No Meds Allergies Allergy/AdvReac Type Severity Reaction Status Date / Time No Known Allergies Allergy Verified 03/22/24 11:39 Active Medications: Current Medications Acetaminophen (Acetaminophen 325 Mg Tablet) 650 mg PO Q6H PRN PRN Reason: Pain, Mild (Pain Scale 1-3), fever or headache Benzonatate (Benzonatate 100 Mg Capsule) 100 mg PO TID PRN PRN Reason: Cough Calcium Carbonate (Calcium Carbonate 750 Mg Tab.Chew) 750 mg PO Q4H PRN PRN Reason: Heartburn Magnesium Hydroxide (Milk Of Magnesia 30 Ml Oral.Susp) 30 ml PO DAILY PRN PRN Reason: Constipation Melatonin (Melatonin 3 Mg Tablet) 6 mg PO BEDTIME PRN PRN Reason: Insomnia Ondansetron HCl (Ondansetron Hcl 4 Mg/2 Ml Vial) 4 mg IVPUSH Q8H PRN PRN Reason: Nausea and Vomiting Pantoprazole Sodium (Pantoprazole Sodium 40 Mg/10 Ml Vial) 40 mg IVPUSH BID@0630,1630 [facility] Sodium Chloride (0.9 % Sodium Chloride Flush 3 Ml Syringe) 3 [facility] Home Medications ?Medication ?Instructions ?Recorded ?Confirmed ?Last Taken ?Type clopidogrel 75 mg tablet 75 mg PO DAILY 03/12/24 03/22/24 03/21/24 History warfarin 5 mg tablet 5 mg PO Q48H 03/12/24 03/22/24 03/22/24 History cholecalciferol (vitamin D3) 1,250 1,250 mcg PO FR 03/22/24 03/22/24 03/21/24 History mcg (50,000 unit) capsule mesalamine 0.375 gram 1.5 g PO DAILY 03/22/24 03/22/24 Unknown History capsule,extended release 24 hr (Apriso) pantoprazole 40 mg tablet,delayed 40 mg PO DAILY@0630 03/22/24 03/22/24 03/21/24 History release sucralfate 100 mg/mL oral 10 ml PO BID 03/22/24 03/22/24 Unknown History suspension (Carafate) warfarin 5 mg tablet 7.5 mg PO Q48H 03/22/24 03/22/24 03/20/24 History Physical Exam Vital Signs and Narrative: Vital Signs: Last Vital Signs Temp 98 F 03/22/24 15:10 Pulse 87 03/22/24 15:10 Resp 18 03/22/24 15:10 BP 123/66 03/22/24 15:10 Pulse Ox 100 03/22/24 14:00 O2 Del Method Room Air 03/22/24 14:00 BMI result Body Mass Index 22.2 Const: Other: General awake alert x3 in mild distress due to abdominal pain Anicteric sclera Neck supple no JVD. CVS regular rate rhythm, Respiratory lungs clear to auscultation, no respiratory distress, no wheeze, no rhonchi. Gastrointestinal abdomen soft, mid abdominal tenderness to palpation no guarding, no rigidity bowel sounds audible. Extremities no edema, good pulses. Neuro non focal Skin no rash/pallor Psych appropriate affect Results Labs 03/23/24 05:59 03/22/24 11:50 Labs: Laboratory Results - last 24 hr 03/22/24 03/22/24 03/22/24 11:50 13:38 13:40 MCV 87.9 MCH 26.3 L MCHC 30.0 L RDW 17.6 H Plt Count 582 H D MPV 9.0 L Immature Gran % (Auto) 0.5 H Neut % (Auto) 68.4 Lymph % (Auto) 20.7 [place] % (Auto) 8.8 Eos % (Auto) 1.0 Baso % (Auto) 0.6 Lymph # (Auto) 2.0 [place] # (Auto) 0.9 Eos # (Auto) 0.1 Baso # (Auto) 0.1 Abs Immat Gran (auto) 0.05 H Absolute Neuts (auto) 6.7 Absolute Nucleated RBC 0.000 Nucleated RBC % (auto) 0.0 PT 44.5 H D INR 3.7 H D Anion Gap 12 Estim Creat Clear Calc 130.2 Estimated GFR > 60 Random Glucose 121 H Calcium 9.1 Total Bilirubin 0.3 Direct Bilirubin 0.1 AST 10 ALT 11 Alkaline Phosphatase 64 Total Protein 6.9 Albumin 4.1 Lipase 91 H Stool Occult Blood POSITIVE Blood Type O Positive Antibody Screen NEGATIVE Crossmatch See Detail Imaging Radiologist's Impressions: Impressions Abdomen/Pelvis CTA 03/22/24 15:27 IMPRESSION: Patent SMA stent. No secondary signs to suggest mesenteric ischemia. Assessment and Plan (1) Acute GI bleeding: Status: Acute (2) Anemia: Qualifiers: Anemia type: unspecified type Qualified Code(s): D64.9 - Anemia, unspecified Status: Acute Plan 40-year-old gentleman status post mesenteric stenting with right fariba colectomy, presented to [place] ED due to dizziness with minimal activity of few days' duration and black stools, woke up this morning with nausea, mid abdominal pain and was referred to [place] ED from [facility]. Acute symptomatic anemia with upper GI bleed likely due to erosive esophagitis, /gastritis as seen on prior upper endoscopy. Black tarry stools of few days' duration, no melena, no hematemesis Will hold dual antiplatelet agent and Coumadin IV Protonix 40 mg b.i.d., Transfuse 2 units of packed RBC follow CBC closely, clear liquid diet Follow PT INR closely, will place on heparin if INR less than 2 CTA abdomen showed patent stent Seen by gastroenterology they recommend not reverse Coumadin due to high risk for stent thrombosis, possible EGD on Friday Hyperlipidemia resume statins Tobacco use disorder counseling done DVT prophylaxis elevated INR Full code Patient will require 2 night inpatient hospitalization for acute symptomatic anemia requiring blood transfusion and possible upper endoscopy. Quality Stroke Does the patient have a stroke diagnosis?: No VTE Prior VTE?: No VTE Risk Level:: Medical - moderate - high VTE Device Contraindication: Treatment Not Indicated VTE Drug Contraindication: Treatment Not Indicated
[2024-03-22 17:18] LABS: Appearance Urine Clear; Color Urine Yellow; Glucose Urine UA Negative (Negative); Leukocyte Esterase Urine Negative (Negative); Nitrite Urine Negative (Negative); Specific Gravity - Urine >= 1.030 (1.005-1.025); Urine Blood Negative (Negative); Urine Ketones 15 mg/dL (Negative); Urine Protein Negative (Neg-Trace)
--- NOTE | 2024-03-22 17:19 | PHA.MEDREC ---
Pharmacy Consult ? Medication Reconciliation Pharmacy has completed the medication reconciliation. Spoke to patient and patients at bedside to confirm meds. Patient says patient is on plavix 75 mg daily, and Warfarin 5 mg q48 h and 7.5 mg q48h. patient and state his Last dose was 5 mg today 03-22-24.
--- NOTE | 2024-03-22 18:40 | PC.NURSE ---
Alert and oriented, reports pain is much improved. Transfusion completed, vss. No further episodes of nausea and vomiting
[2024-03-22 20:12] LABS: Hematocrit 21.8 % (42.0-52.0); Mean Corpuscular HGB Conc 31.2 g/dl (31.0-36.0); Mean Corpuscular Hemoglobin 26.8 pg (27.0-33.0); Mean Corpuscular Volume 85.8 fL (80.0-98.0); Mean Platelet Volume 9.1 fL (9.4-12.4); NRBC Pct Auto 0.3 /100WBC (0.0-0.2); Platelet Count 497 X10*3/uL (160-400); Red Blood Count 2.54 X10*6/uL (4.60-5.80); Red Cell Distribution Width 16.7 % (11.0-16.0); White Blood Count 9.7 X10*3/uL (4.8-10.8)
[2024-03-22 20:20] LABS: Hemoglobin 6.8 g/dl (14.0-18.0)
--- NOTE | 2024-03-22 20:25 | PM.EVENT ---
Event Note Date of Service: 03/22/24 Event Note: Pt with acute symptomatic anemia 2/2 gi bleed. s/p 1 unit packed red blood cells transfusion completed 1821. Initial hgb 6.5, repeat just now (2025) 6.8. Will order 1 addl unit packed RBC Time Spent With Patient Time: Total time managing care of this patient today ____ minutes.
--- NOTE | 2024-03-22 21:17 | PC.NURSE ---
blood transfusion started per tar. vss afebrile. lung sounds cta. pt is axox4 speaking full clear sentences. pt denies cp/sob/n/v/d. pt states last black tarry stool yesterday, no bloody/black stools today. pt denies abd pain.
[2024-03-23] VITALS (8 sets, daily range): BP systolic 115–121; BP diastolic 59–67; PULSE 75–89; RESP 15–20; TEMP 36.7–37.4; O2SAT 97–99; BMI 23.0
[2024-03-23] MEDS: 0.9 % Sodium Chloride Flush 3 ML SYRINGE IVFLUSH ×3 (01:32→16:25)
[2024-03-23] MEDS: Pantoprazole Sodium 40 MG/10 ML VIAL IVPUSH ×2 (05:45→16:25)
[2024-03-23 06:26] LABS: Hematocrit 27.7 % (42.0-52.0); Mean Corpuscular HGB Conc 32.5 g/dl (31.0-36.0); Mean Corpuscular Volume 86.3 fL (80.0-98.0); Mean Platelet Volume 9.1 fL (9.4-12.4); NRBC Pct Auto 0.2 /100WBC (0.0-0.2); Platelet Count 474 X10*3/uL (160-400); Red Blood Count 3.21 X10*6/uL (4.60-5.80); Red Cell Distribution Width 16.6 % (11.0-16.0); White Blood Count 11.6 X10*3/uL (4.8-10.8)
[2024-03-23 07:00] LABS: Prothrombin Time 48.3 SEC (11.1-13.3)
--- NOTE | 2024-03-23 08:36 | MHC.CM.PN ---
CM met with Patient at bedside. Patient lives in an apartment with his /HCP/Roxy and he attends the [facility]. Patient required no DME FRONT [employer] WORK[employer] and home/resume clinic is the goal; CM has initiated and will follow for dc planning. PCP is Dr.Annabel Fung.
--- NOTE | 2024-03-23 14:03 | P.PNIM_ITS ---
Subjective Subjective Date of Service: 03/23/24 Interval History: Being followed for GI bleed Offers no acute complaints tolerating clear liquid diet denies hematemesis, no melena, no dark stools, no abdominal pain, no acute events overnight. Review of Systems All other system reviewed and are negative Physical Exam 2 Vital Signs: Vital Signs: Last Vital Signs Temp 98.9 F 03/23/24 11:10 Pulse 76 03/23/24 11:10 Resp 20 03/23/24 11:10 BP 119/63 03/23/24 11:10 Pulse Ox 99 03/23/24 11:10 O2 Del Method Room Air 03/23/24 11:10 BMI result Body Mass Index 23.0 Const: Other: General awake alert x3 in no acute distress Anicteric sclera Neck supple no JVD. CVS regular rate rhythm, Respiratory lungs clear to auscultation, no respiratory distress, no wheeze, no rhonchi. Gastrointestinal abdomen soft, nontender, no guarding, no rigidity, bowel sounds audible. Extremities no edema, good pulses. Neuro non focal Skin no rash/pallor Psych appropriate affect Objective Data Active Medications Acetaminophen (Acetaminophen 325 Mg Tablet) 650 mg PO Q6H PRN PRN Reason: Pain, Mild (Pain Scale 1-3), fever or headache Al Hydroxide/Mg Hydroxide (Magnesium Hydrox/Alum Hydrox 30 Ml Oral.Susp) 30 ml PO Q4H PRN PRN Reason: Pain, Mild (Pain Scale 1-3) Benzonatate (Benzonatate 100 Mg Capsule) 100 mg PO TID PRN PRN Reason: Cough Calcium Carbonate (Calcium Carbonate 750 Mg Tab.Chew) 750 mg PO Q4H PRN PRN Reason: Heartburn Magnesium Hydroxide (Milk Of Magnesia 30 Ml Oral.Susp) 30 ml PO DAILY PRN PRN Reason: Constipation Melatonin (Melatonin 3 Mg Tablet) 6 mg PO BEDTIME PRN PRN Reason: Insomnia Morphine Sulfate (Morphine Sulfate 4 Mg/Ml Cartridge) 3 mg IVPUSH Q4H PRN; Protocol PRN Reason: Pain, Severe (Pain Scale 7-10) Ondansetron HCl (Ondansetron Hcl 4 Mg/2 Ml Vial) 4 mg IVPUSH Q8H PRN PRN Reason: Nausea and Vomiting Pantoprazole Sodium (Pantoprazole Sodium 40 Mg/10 Ml Vial) 40 mg IVPUSH BID@0630,1630 [facility] Last Admin: 03/23/24 05:45 Dose: 40 mg Documented By: SUSHMA-RIVLA Sodium Chloride (0.9 % Sodium Chloride Flush 3 Ml Syringe) 3 ml IVFLUSH QSHIFT [facility] Last Admin: 03/23/24 08:22 Dose: 3 ml Documented By: SHEREEN Labs 03/23/24 05:59 03/22/24 11:50 Labs: Laboratory Results - last 24 hr 03/22/24 03/22/24 03/22/24 11:50 13:40 17:04 MCV MCH MCHC RDW Plt Count MPV Absolute Nucleated RBC Nucleated RBC % (auto) Smear Path Review SEE NOTE PT INR Urine Color Yellow Urine Appearance Clear Urine pH 5.0 Ur Specific [place] >= 1.030 H Urine Protein Negative Urine Glucose (UA) Negative Urine Ketones 15 Urine Blood Negative Urine Nitrite Negative Ur Leukocyte Esterase Negative Blood Type O Positive Antibody Screen NEGATIVE Crossmatch See Detail 03/22/24 03/23/24 19:58 05:59 MCV 85.8 86.3 MCH 26.8 L 28.0 MCHC 31.2 32.5 RDW 16.7 H 16.6 H Plt Count 497 H 474 H MPV 9.1 L 9.1 L Absolute Nucleated RBC 0.030 H 0.020 H Nucleated RBC % (auto) 0.3 H 0.2 Smear Path Review PT 48.3 H INR 4.0 H Urine Color Urine Appearance Urine pH Ur Specific [place] Urine Protein Urine Glucose (UA) Urine Ketones Urine Blood Urine Nitrite Ur Leukocyte Esterase Blood Type Antibody Screen Crossmatch Assessment and Plan (1) Acute GI bleeding: Status: Acute (2) Anemia: Status: Acute Plan 40-year-old gentleman status post mesenteric stenting with right fariba colectomy, presented to [place] ED due to dizziness with minimal activity of few days' duration and black stools, woke up this morning with nausea, mid abdominal pain and was referred to [place] ED from Coumadin clinic. Acute symptomatic blood loss anemia / upper GI bleed likely due to erosive esophagitis, /gastritis as seen on prior upper endoscopy. No recurrent episodes of Black tarry stools , no hematemesis INR 4, status post 2 units packed RBC, hematocrit improved from 21.8-27.7 Continue IV Protonix 40 mg b.i.d., hold Coumadin , Plavix and mesalamine Repeat INR this afternoon CTA abdomen showed patent stent Case discussed with Dr. Delgado he recommend to place on regular diet and resume aspirin, if INR less than [address] on heparin drip and possible endoscopy at a.m. Keep NPO after midnight Hyperlipidemia resume statins Tobacco use disorder counseling done DVT prophylaxis elevated INR Full code Patient will require continued inpatient hospitalization for acute symptomatic anemia requiring blood transfusion and possible upper endoscopy. Quality Stroke Does the patient have a stroke diagnosis?: No VTE Prior VTE?: No VTE Risk Level:: Medical - moderate - high VTE Device Contraindication: Treatment Not Indicated VTE Drug Contraindication: Treatment Not Indicated
[2024-03-23 15:17] LABS: Prothrombin Time 48.9 SEC (11.1-13.3)
[2024-03-23] MEDS: Aspirin Enteric Coated 81 MG TABLET.DR PO (16:24)
[2024-03-24] VITALS (10 sets, daily range): BP systolic 112–139; BP diastolic 57–79; PULSE 65–90; RESP 16–22; TEMP 36.1–37.6; O2SAT 97–100
[2024-03-24] MEDS: Pantoprazole Sodium 40 MG/10 ML VIAL IVPUSH ×2 (05:58→15:48)
[2024-03-24 05:59] LABS: Hemoglobin 9.8 g/dl (14.0-18.0); Mean Corpuscular HGB Conc 32.7 g/dl (31.0-36.0); Mean Corpuscular Hemoglobin 28.2 pg (27.0-33.0); Mean Corpuscular Volume 86.2 fL (80.0-98.0); Platelet Count 559 X10*3/uL (160-400); Red Blood Count 3.48 X10*6/uL (4.60-5.80); White Blood Count 10.6 X10*3/uL (4.8-10.8)
[2024-03-24 06:06] LABS: Prothrombin Time 24.5 SEC (11.1-13.3)
[2024-03-24 06:18] LABS: Anion Gap 13 (12-20); Blood Urea Nitrogen 9 mg/dL (9-16); Calcium 9.1 mg/dL (8.4-10.2); Carbon Dioxide 22 mmol/L (22-29); Chloride 109 mmol/L (96-108); Creatinine Clr Calc Pharmacy 134.7; Estimated Glomerular Filt Rate > 60; Glucose Random 103 mg/dL (60-115); Potassium 4.3 mmol/L (3.3-5.1); Sodium 140 mmol/L (135-145)
[2024-03-24] MEDS: 0.9 % Sodium Chloride Flush 3 ML SYRINGE IVFLUSH ×3 (09:04→15:47)
--- NOTE | 2024-03-24 10:25 | MHC.CM.PN ---
Per ROUNDS discussion, Patient is NPO for upper Endoscopy today; home is the goal and cM will continue to follow.
--- NOTE | 2024-03-24 10:42 | HO.ANESPROP2 ---
[facility] Active Problems Active Problems: All Active Problems Acute GI bleeding (Acute) Anemia (Acute) Vitamin D deficiency (Acute) Mesenteric artery thrombosis (Acute) Current use of anticoagulant therapy (Acute) IBD (inflammatory bowel disease) (Acute) Allergic conjunctivitis (Acute) Hyperlipidemia (Acute) Iron deficiency anemia (Acute) Vaccine refused by patient (Acute ~09/05/23) Cigar smoker unmotivated to quit (Acute) Chronic vascular insufficiency of intestine (Acute) Impaired fasting glucose (Acute) Past Medical History Medical History Anemia Vitamin D deficiency Mesenteric artery thrombosis CAD (coronary artery disease) Hyperlipidemia Iron deficiency anemia Superior mesenteric artery stenosis Celiac artery stenosis Vaccine refused by patient (~09/05/23) Cigar smoker unmotivated to quit Chronic vascular insufficiency of intestine Impaired fasting glucose Diarrhea Granular cell tumor Chronic GERD Family History Family History Maternal Aunt No problems noted. Maternal Aunt No problems noted. Family history of problems with anesthesia: No Surgical History Surgical History H/O heart artery stent History of esophagogastroduodenoscopy (EGD) Hx of colectomy Hx of appendectomy Hx of colonoscopy History of Problems with Anesthesia: No Social History Social History Household Members: Spouse Housing: Apartment Do you presently have visiting nurse or other home services: No Alcohol intake: former Patient Tobacco Use Status: Current everyday Tobacco user Tobacco use type: Cigar Cigarettes Per Day: 1 Years Smoked: 3 e-Cigarette/Vaping Use: Never Used Substance Use Type: Marijuana service: No Current occupational status: employed Current occupational exposures/hazards: No Cognitive needs: No Hearing needs: No Vision needs: No Meds Allergies Allergy/AdvReac Type Severity Reaction Status Date / Time No Known Allergies Allergy Verified 03/22/24 11:39 Active Medications: Current Medications Acetaminophen (Acetaminophen 325 Mg Tablet) 650 mg PO Q6H PRN PRN Reason: Pain, Mild (Pain Scale 1-3), fever or headache Al Hydroxide/Mg Hydroxide (Magnesium Hydrox/Alum Hydrox 30 Ml Oral.Susp) 30 ml PO Q4H PRN PRN Reason: Pain, Mild (Pain Scale 1-3) Benzonatate (Benzonatate 100 Mg Capsule) 100 mg PO TID PRN PRN Reason: Cough Calcium Carbonate (Calcium Carbonate 750 Mg Tab.Chew) 750 mg PO Q4H PRN PRN Reason: Heartburn Magnesium Hydroxide (Milk Of Magnesia 30 Ml Oral.Susp) 30 ml PO DAILY PRN PRN Reason: Constipation Melatonin (Melatonin 3 Mg Tablet) 6 mg PO BEDTIME PRN PRN Reason: Insomnia Morphine Sulfate (Morphine Sulfate 4 Mg/Ml Cartridge) 3 mg IVPUSH Q4H PRN; Protocol PRN Reason: Pain, Severe (Pain Scale 7-10) Ondansetron HCl (Ondansetron Hcl 4 Mg/2 Ml Vial) 4 mg IVPUSH Q8H PRN PRN Reason: Nausea and Vomiting Pantoprazole Sodium (Pantoprazole Sodium 40 Mg/10 Ml Vial) 40 mg IVPUSH BID@0630,1630 [facility] Last Admin: 03/24/24 05:58 Dose: 40 mg Sodium Chloride (0.9 % Sodium Chloride Flush 3 Ml Syringe) [facility] Last Admin: 03/24/24 09:04 Dose: 3 ml Home Medications ?Medication ?Instructions ?Recorded ?Confirmed ?Last Taken ?Type clopidogrel 75 mg tablet 75 mg PO DAILY 03/12/24 03/22/24 03/21/24 History warfarin 5 mg tablet 5 mg PO Q48H 03/12/24 03/22/24 03/22/24 History cholecalciferol (vitamin D3) 1,250 1,250 mcg PO FR 03/22/24 03/22/24 03/21/24 History mcg (50,000 unit) capsule mesalamine 0.375 gram 1.5 g PO DAILY 03/22/24 03/22/24 Unknown History capsule,extended release 24 hr (Apriso) pantoprazole 40 mg tablet,delayed 40 mg PO DAILY@0630 03/22/24 03/22/24 03/21/24 History release sucralfate 100 mg/mL oral 10 ml PO BID 03/22/24 03/22/24 Unknown History suspension (Carafate) warfarin 5 mg tablet 7.5 mg PO Q48H 03/22/24 03/22/24 03/20/24 History Exam Height,Weight and Vital Signs: Height 6 ft Weight 77 kg Last Vital Signs Temp 98.4 F 03/24/24 10:33 Pulse 77 03/24/24 10:33 Resp 16 03/24/24 10:33 BP 115/74 03/24/24 10:33 Pulse Ox 97 03/24/24 10:33 O2 Del Method Room Air 03/24/24 10:33 Pertinent Lab Results Pertinent Lab Results: Laboratory Tests 03/22/24 03/22/24 03/22/24 11:50 13:38 13:40 WBC 9.9 RBC 2.47 L D Hgb 6.5 L* D Hct 21.7 L D MCV 87.9 MCH 26.3 L MCHC 30.0 L RDW 17.6 H Plt Count 582 H D MPV 9.0 L Immature Gran % (Auto) 0.5 H Neut % (Auto) 68.4 Lymph % (Auto) 20.7 [place] % (Auto) 8.8 Eos % (Auto) 1.0 Baso % (Auto) 0.6 Lymph # (Auto) 2.0 [place] # (Auto) 0.9 Eos # (Auto) 0.1 Baso # (Auto) 0.1 Abs Immat Gran (auto) 0.05 H Absolute Neuts (auto) 6.7 Absolute Nucleated RBC 0.000 Nucleated RBC % (auto) 0.0 Smear Path Review SEE NOTE PT 44.5 H D INR 3.7 H D Sodium 141 Potassium 4.6 Chloride 111 H Carbon Dioxide 23 Anion Gap 12 BUN 9 Creatinine 0.73 Estim Creat Clear Calc 130.2 Estimated GFR > 60 Random Glucose 121 H Calcium 9.1 Total Bilirubin 0.3 Direct Bilirubin 0.1 AST 10 ALT 11 Alkaline Phosphatase 64 Total Protein 6.9 Albumin 4.1 Lipase 91 H Urine Color Urine Appearance Urine pH Ur Specific [place] Urine Protein Urine Glucose (UA) Urine Ketones Urine Blood Urine Nitrite Ur Leukocyte Esterase Stool Occult Blood POSITIVE Blood Type O Positive Antibody Screen NEGATIVE Crossmatch See Detail 03/22/24 03/22/24 03/23/24 17:04 19:58 05:59 WBC 9.7 11.6 H RBC 2.54 L 3.21 L D Hgb 6.8 L* 9.0 L D Hct 21.8 L 27.7 L D MCV 85.8 86.3 MCH 26.8 L 28.0 MCHC 31.2 32.5 RDW 16.7 H 16.6 H Plt Count 497 H 474 H MPV 9.1 L 9.1 L Immature Gran % (Auto) Neut % (Auto) Lymph % (Auto) [place] % (Auto) Eos % (Auto) Baso % (Auto) Lymph # (Auto) [place] # (Auto) Eos # (Auto) Baso # (Auto) Abs Immat Gran (auto) Absolute Neuts (auto) Absolute Nucleated RBC 0.030 H 0.020 H Nucleated RBC % (auto) 0.3 H 0.2 Smear Path Review PT 48.3 H INR 4.0 H Sodium Potassium Chloride Carbon Dioxide Anion Gap BUN Creatinine Estim Creat Clear Calc Estimated GFR Random Glucose Calcium Total Bilirubin Direct Bilirubin AST ALT Alkaline Phosphatase Total Protein Albumin Lipase Urine Color Yellow Urine Appearance Clear Urine pH 5.0 Ur Specific [place] >= 1.030 H Urine Protein Negative Urine Glucose (UA) Negative Urine Ketones 15 Urine Blood Negative Urine Nitrite Negative Ur Leukocyte Esterase Negative Stool Occult Blood Blood Type Antibody Screen Crossmatch 03/23/24 03/24/24 14:45 05:38 WBC 10.6 RBC 3.48 L Hgb 9.8 L Hct 30.0 L MCV 86.2 MCH 28.2 MCHC 32.7 RDW 17.0 H Plt Count 559 H MPV 9.0 L Immature Gran % (Auto) Neut % (Auto) Lymph % (Auto) [place] % (Auto) Eos % (Auto) Baso % (Auto) Lymph # (Auto) [place] # (Auto) Eos # (Auto) Baso # (Auto) Abs Immat Gran (auto) Absolute Neuts (auto) Absolute Nucleated RBC 0.000 Nucleated RBC % (auto) 0.0 Smear Path Review PT 48.9 H 24.5 H D INR 4.0 H 2.0 H D Sodium 140 Potassium 4.3 Chloride 109 H Carbon Dioxide 22 Anion Gap 13 BUN 9 Creatinine 0.73 Estim Creat Clear Calc 134.7 Estimated GFR > 60 Random Glucose 103 Calcium 9.1 Total Bilirubin Direct Bilirubin AST ALT Alkaline Phosphatase Total Protein Albumin Lipase Urine Color Urine Appearance Urine pH Ur Specific [place] Urine Protein Urine Glucose (UA) Urine Ketones Urine Blood Urine Nitrite Ur Leukocyte Esterase Stool Occult Blood Blood Type Antibody Screen Crossmatch Airway Mallampati Class: II TM Dist: >3cm Neck ROM: Full Assessment and Plan Assessment Anesthesia Assessment: Anesthesia Plan Discussed and Chart Reviewed Final Anesthetic Review Family History of Problems with Anesthesia: No History of Problems with Anesthesia: No NPO: Yes ASA Class: III Final Preanesthetic Review: No Changes in Pt Med Stat, Meds/Allgs Chart Reviewed, Consent Obtained/Reviewed and Anes Risks/Benef Reviewed Patient Risk: Intermediate Procedure Risk: Low Anesthetic Plan Anesthetic Plan: TIVA Disposition: Standard PACU
--- NOTE | 2024-03-24 12:07 | P.PNGI_ITS ---
Subjective Subjective Date of Service: 03/24/24 Interval History: able to eat a burger yesterday no longer has nausea no abdominal pain no melena feels better overall Critical Care Time (minutes): 0 Physical Exam 2 Vital Signs: Vital Signs: Last Vital Signs Temp 98.4 F 03/24/24 10:33 Pulse 77 03/24/24 10:33 Resp 16 03/24/24 10:33 BP 115/74 03/24/24 10:33 Pulse Ox 97 03/24/24 10:33 O2 Del Method Room Air 03/24/24 10:33 BMI result Body Mass Index 23.0 EXAM: GENERAL: The patient is relaxed, thin VITAL SIGNS:see workflow HEENT: Nonicteric sclerae, PERRLA, EOMI. Oropharynx clear. Moist mucous membranes. Conjunctivae appear well perfused. No thyroid mass. CHEST: Chest wall is nontender. HEART: Regular rate and rhythm without murmurs. LUNGS: Clear to auscultation bilaterally. ABDOMEN: Soft, positive bowel sounds, nontender, no organomegaly.no flank tenderness SKIN: No rash, no excessive bruising, petechiae, or purpura. NEUROLOGIC: Cranial nerves II-XII intact without motor/sensory deficit. Psych: normal affect Objective Data Labs 03/24/24 05:38 03/24/24 05:38 Labs: Laboratory Results - last 24 hr 03/23/24 03/24/24 14:45 05:38 WBC 10.6 RBC 3.48 L Hgb 9.8 L Hct 30.0 L MCV 86.2 MCH 28.2 MCHC 32.7 RDW 17.0 H Plt Count 559 H MPV 9.0 L Absolute Nucleated RBC 0.000 Nucleated RBC % (auto) 0.0 PT 48.9 H 24.5 H D INR 4.0 H 2.0 H D Sodium 140 Potassium 4.3 Chloride 109 H Carbon Dioxide 22 Anion Gap 13 BUN 9 Creatinine 0.73 Estim Creat Clear Calc 134.7 Estimated GFR > 60 Random Glucose 103 Calcium 9.1 Procedures Date of Service Date of Service: 03/24/24 Progress Note: A&P Assessment and plan (1) Acute GI bleeding: Status: Acute (2) Anemia: Status: Acute Plan 1/ anemia, nausea and diarrhea, possibly from peptic ulcer, gastritis due to smoking and non compliance with PPI on background of DAPT and coumadin use ddx: AVM PLAN: 1/ EGD today 2//cont with PPI 3/ smoking cessation Time Spent With Patient Time: Total time managing care of this patient today ____ minutes. Quality Stroke Does the patient have a stroke diagnosis?: No VTE Prior VTE?: No VTE Risk Level:: Medical - moderate - high VTE Device Contraindication: Treatment Not Indicated VTE Drug Contraindication: Treatment Not Indicated
--- NOTE | 2024-03-24 12:10 | MHC.SHP ---
Pre-Procedural Eval Section A - 24 Hr Update-Section A only Date of Service: 03/24/24 The patient is an INPATIENT: Yes The patient has been examined within 24 hours of the surgical procedure. The History & Physical has been completed within 30 days and I have reviewed it.: Yes Section B - Complete if H&P > 30 days Chief Complaint: Acute symptomatic anemia Allergies: Allergies Allergy/AdvReac Type Severity Reaction Status Date / Time No Known Allergies Allergy Verified 03/22/24 11:39 Plan Diagnosis/Plan: Unchanged I have reviewed the history and physical and performed a pertinent physical examination on my patient. No changes have occurred unless specified. Time Spent With Patient Time: Total time managing care of this patient today ____ minutes.
--- NOTE | 2024-03-24 13:18 | W.PM.OPN ---
Operative Note Operative Note Date of Service: 03/24/24 Narrative: Procedure Description: EGD Indication: anemia Anesthesia: MAC FLEXIBLE TRANSORAL UPPER GASTROINTESTINAL ENDOSCOPY UPPER ENDOSCOPY Consent: Indications for the procedure and potential complications of bleeding, perforation, reaction to medications and missed diagnosis were discussed with the patient and informed consent was obtained. Instrument: Olympus GIF H 190 J mid size upper endoscope Monitoring: Vital signs and clinical assessment, continuous EKG monitoring, Pulse oximetry, Carbon Dioxide monitoring and blood pressure monitoring were done throughout the procedure. Procedure: The patient was placed in the left lateral decubitis position and pre-procedure medications were administered and a bite block was placed. The endoscope was inserted into the mouth and advanced under direct vision to the third part of duodenum. A careful inspection was made as the upper endoscope was withdrawn including a retroflexed examination of the proximal stomach; Findings and interventions are described below. Findings: Larynx:normal Esophagus: GE junction at 38 cm, diaphragm hiatus at 38 cm, normal mucosa Stomach: normal . Biopsies were obtained. Grade 2 flap valve on retroflexed examination of the cardia. Duodenum: Normal bulb and descending duodenum, in the distal part of third part of duodenum there was oozing of blood noted, no focus could be seen, but suspected to be an AVM, so hemospray was deployed with good effect Intervention: hemospray Impression/Findings: probable bleeding AVM PLAN: cont PPI consider octreotide SQ as he will likely cont to bleed from AVMs, vs scheduled iron infusions or PO iron therapy
--- NOTE | 2024-03-24 13:38 | HO.PM.IMPN ---
Subjective Subjective Date of Service: 03/24/24 Interval History: Being followed for GI bleed. Offers no acute complaints no nausea, no abdominal pain no dark stools tolerated regular diet yesterday, no acute events overnight. Review of Systems All other system reviewed and are negative. Physical Exam Vital Signs: Vital Signs: Last Vital Signs Temp 97.7 F 03/24/24 13:22 Pulse 70 03/24/24 13:36 Resp 20 03/24/24 13:36 BP 122/73 03/24/24 13:36 Pulse Ox 100 03/24/24 13:36 O2 Del Method Room Air 03/24/24 13:36 BMI result Body Mass Index 23.0 Const: Other: General awake alert x3 in no acute distress Anicteric sclera Neck supple no JVD. CVS regular rate rhythm, Respiratory lungs clear to auscultation, no respiratory distress, no wheeze, no rhonchi. Gastrointestinal abdomen soft, non tender, no guarding, no rigidity, bowel sounds audible. Extremities no edema, good pulses. Neuro non focal Skin no rash/pallor Psych appropriate affect Objective Data Active Medications Acetaminophen (Acetaminophen 325 Mg Tablet) 650 mg PO Q6H PRN PRN Reason: Pain, Mild (Pain Scale 1-3), fever or headache Al Hydroxide/Mg Hydroxide (Magnesium Hydrox/Alum Hydrox 30 Ml Oral.Susp) 30 ml PO Q4H PRN PRN Reason: Pain, Mild (Pain Scale 1-3) Benzonatate (Benzonatate 100 Mg Capsule) 100 mg PO TID PRN PRN Reason: Cough Calcium Carbonate (Calcium Carbonate 750 Mg Tab.Chew) 750 mg PO Q4H PRN PRN Reason: Heartburn Magnesium Hydroxide (Milk Of Magnesia 30 Ml Oral.Susp) 30 ml PO DAILY PRN PRN Reason: Constipation Melatonin (Melatonin 3 Mg Tablet) 6 mg PO BEDTIME PRN PRN Reason: Insomnia Morphine Sulfate (Morphine Sulfate 4 Mg/Ml Cartridge) 3 mg IVPUSH Q4H PRN; Protocol PRN Reason: Pain, Severe (Pain Scale 7-10) Ondansetron HCl (Ondansetron Hcl 4 Mg/2 Ml Vial) 4 mg IVPUSH Q8H PRN PRN Reason: Nausea and Vomiting Pantoprazole Sodium (Pantoprazole Sodium 40 Mg/10 Ml Vial) 40 mg IVPUSH BID@0630,1630 [facility] Last Admin: 03/24/24 05:58 Dose: 40 mg Documented By: PANCHO Sodium Chloride (0.9 % Sodium Chloride Flush 3 Ml Syringe) 3 ml IVFLUSH QSHIFT [facility] Last Admin: 03/24/24 09:04 Dose: 3 ml Documented By: LUCIO Labs 03/24/24 05:38 03/24/24 05:38 Labs: Laboratory Results - last 24 hr 03/23/24 03/24/24 14:45 05:38 MCV 86.2 MCH 28.2 MCHC 32.7 RDW 17.0 H Plt Count 559 H MPV 9.0 L Absolute Nucleated RBC 0.000 Nucleated RBC % (auto) 0.0 PT 48.9 H 24.5 H D INR 4.0 H 2.0 H D Anion Gap 13 Estim Creat Clear Calc 134.7 Estimated GFR > 60 Random Glucose 103 Calcium 9.1 Assessment and Plan (1) Acute GI bleeding: Status: Acute Plan 40-year-old gentleman status post mesenteric stenting with right fariba colectomy, presented to [place] ED due to dizziness with minimal activity of few days' duration and black stools, woke up this morning with nausea, mid abdominal pain and was referred to [place] ED from Coumadin clinic. Acute symptomatic blood loss anemia / upper GI bleed No recurrent episodes of Black tarry stools , no hematemesis CT abdomen showed patent stent INR 4, status post 2 units packed RBC, hematocrit improved from 21.8 to 30, repeat INR 2 Underwent upper endoscopy by Dr. Garduno noted to have normal esophagus, stomach, but noted to have oozing of blood in the distal 3rd part of duodenum treated with hemo spray with good affect likely bleeding from AVM GI recommend to Continue IV Protonix 40 mg b.i.d., , consider subcu octreotide/scheduled iron infusions or by mouth iron Will resume Coumadin , Plavix , aspirin as per GI recommendation, and dc mesalamine (patient not taking medication at home) Repeat INR Acute Iron deficiency, hematocrit 30 above transfusion threshold will give IV iron infusion. Hyperlipidemia resume statins Tobacco use disorder counseling done DVT prophylaxis elevated INR Full code Patient will require continued inpatient hospitalization for acute symptomatic anemia requiring blood transfusion and possible upper endoscopy. Quality Stroke Does the patient have a stroke diagnosis?: No VTE Prior VTE?: No VTE Risk Level:: Medical - moderate - high VTE Device Contraindication: Treatment Not Indicated VTE Drug Contraindication: Treatment Not Indicated
[2024-03-24] MEDS: Octreotide Acetate 100 MCG/ML AMPUL SUBCUT (15:47)
[2024-03-24] MEDS: Iron Sucrose Complex 200 MG in 0.9 % Sodium Chloride 100 ML 440 MG IV (15:47)
[2024-03-24] MEDS: Aspirin Enteric Coated 81 MG TABLET.DR PO (15:47)
[2024-03-24] MEDS: Warfarin Sodium 7.5 MG TABLET PO (17:39)
[2024-03-25] VITALS: BP 131/75; PULSE 74; RESP 16; TEMP 36.5; O2SAT 99
[2024-03-25] MEDS: Octreotide Acetate 100 MCG/ML AMPUL SUBCUT ×2 (03:21→13:41)
[2024-03-25 03:57] VITALS: BP 124/61; PULSE 80; RESP 16; TEMP 36.4; O2SAT 98
[2024-03-25] MEDS: Pantoprazole Sodium 40 MG/10 ML VIAL IVPUSH (06:26)
[2024-03-25 07:53] VITALS: BP 132/64; PULSE 70; RESP 20; TEMP 36.6; O2SAT 97
[2024-03-25] MEDS: Clopidogrel Bisulfate 75 MG TABLET PO (08:02)
[2024-03-25] MEDS: Aspirin Enteric Coated 81 MG TABLET.DR PO (08:02)
[2024-03-25] MEDS: Iron Sucrose Complex 200 MG in 0.9 % Sodium Chloride 100 ML 440 MG IV (08:03)
[2024-03-25] MEDS: 0.9 % Sodium Chloride Flush 3 ML SYRINGE IVFLUSH ×2 (08:03)
--- NOTE | 2024-03-25 09:03 | HO.POSTANES ---
Post Anesthesia Evaluation Post Anesthesia Evaluation Date of Service: 03/25/24 Vital Signs: Vital Signs Temp Pulse Resp BP Pulse Ox O2 Del Method 03/25/24 07:53 97.8 F 70 20 132/64 97 Room Air 03/25/24 03:57 97.5 F 80 16 124/61 98 Room Air 03/25/24 00:00 97.7 F 74 16 131/75 99 Room Air Anesthesia: Monitored Mental Status: Awake Pain Control: Satisfactory Nausea/Vomiting: None Hydration: Adequate Anesthesia-Related Issues: No Anes. Related Issues
[2024-03-25 09:39] LABS: Hematocrit 31.2 % (42.0-52.0); Hemoglobin 9.8 g/dl (14.0-18.0); Mean Corpuscular HGB Conc 31.4 g/dl (31.0-36.0); Mean Corpuscular Hemoglobin 27.8 pg (27.0-33.0); Mean Corpuscular Volume 88.6 fL (80.0-98.0); Mean Platelet Volume 8.9 fL (9.4-12.4); Platelet Count 589 X10*3/uL (160-400); Red Blood Count 3.52 X10*6/uL (4.60-5.80); Red Cell Distribution Width 17.2 % (11.0-16.0); White Blood Count 7.8 X10*3/uL (4.8-10.8)
[2024-03-25 09:48] LABS: INTERNATIONAL NORM RATIO 1.7 (0.9-1.1); Prothrombin Time 20.9 SEC (11.1-13.3)
[2024-03-25 11:21] VITALS: BP 122/70; PULSE 80; RESP 18; TEMP 36.3; O2SAT 97
--- NOTE | 2024-03-25 12:50 | P.DS_ITS ---
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, history of hyperlipidemia, iron deficiency anemia, history of peptic ulcer disease, depression, internal hemorrhoids, came for follow-up on PT INR [facility], but felt nauseous and dizzy therefore referred to [place] emergency room, as per patient he has been feeling dizzy with minimal activity of few days' duration, also Complaining of nausea , mid abdominal discomfort and black stools of couple days' duration, denies coffee-ground emesis, no bright red blood per rectum, is on Coumadin, Plavix, aspirin, and ED noted to have hemoglobin 6.5, hematocrit 21.7, last hematocrit 31.8 on March 12 after receiving blood transfusion, INR 3.7, patient receiving blood transfusion, no recurrent black stools noted since arrival to ED, CTA showed patent stent, patient evaluated by Gastroenterology they recommend to continue IV PPI, and recommend not to reverse PT INR since high risk for stent thrombosis, possible EGD on Friday. 40-year-old gentleman status post mesenteric stenting with right fariba colectomy, presented to [place] ED due to dizziness with minimal activity of few days' duration and black stools, associated with nausea and abdominal pain therefore referred to ED from [facility] and admitted to telemetry unit with a diagnosis of Acute symptomatic blood loss anemia due to upper GI bleed , CT abdomen and pelvis showed patent stent, treated with IV Protonix, Coumadin was held and was not reversed to avoid thrombosis of stent, patient had no recurrent episode of black tarry stools, had no hematemesis, INR was monitored closely he underwent upper endoscopy once INR was [address] Delgado, upper into showed normal esophagus, stomach, but noted to have oozing of blood in the distal 3rd part of duodenum treated with hemo spray with good affect likely bleeding from AVM, GI recommended to resume Coumadin, Plavix and aspirin, due to low iron studies patient treated with IV iron infusion and subcutaneous octreotide b.i.d. patient is being discharged home on iron supplements and recommended close outpatient follow-up with GI and vascular surgery in [place] to discuss continued use of dual antiplatelets and anticoagulation, mesalamine discontinued as per GI recommendation, recommend to keep INR between 2-3 Acute Iron deficiency, treated with IV iron and being discharged on iron supplements. Hyperlipidemia continue statins Tobacco use disorder strongly recommend to abstain from smoking counseling done. Time Attestation Discharge Coordination Time (in mins): 40 Quality: Safe Use of Opioids Does Pt have an Active Cancer Diagnosis on the Problem List?: No Quality: Stroke Does the patient have a stroke diagnosis?: No Physical Exam Vital Signs: Vital Signs: Last Vital Signs Temp 97.4 F 03/25/24 11:21 Pulse 80 03/25/24 11:21 Resp 18 03/25/24 11:21 BP 122/70 03/25/24 11:21 Pulse Ox 97 03/25/24 11:21 O2 Del Method Room Air 03/25/24 11:21 BMI result Body Mass Index 23.0 Const: Other: General awake alert x3 in no acute distress Anicteric sclera Neck supple no JVD. CVS regular rate rhythm, Respiratory lungs clear to auscultation, no respiratory distress, no wheeze, no rhonchi. Gastrointestinal abdomen soft, non tender, no guarding, no rigidity, bowel sounds audible. Extremities no edema, good pulses. Neuro non focal Skin no rash/pallor Psych appropriate affect DS: Data Data Completed and Pending Labs on day of discharge: Laboratory Results - last 24 hr 03/25/24 09:26 WBC 7.8 RBC 3.52 L Hgb 9.8 L Hct 31.2 L MCV 88.6 MCH 27.8 MCHC 31.4 RDW 17.2 H Plt Count 589 H MPV 8.9 L Absolute Nucleated RBC 0.000 Nucleated RBC % (auto) 0.0 PT 20.9 H INR 1.7 H Discharge Plan Discharge Anticipated Discharge Date/Time: 03/25/24 12:33 Patient Disposition: Home, Self-Care Discharge Diagnosis: Acute symptomatic blood loss anemia Acute upper GI bleed Referrals: Ngoc Fung MD [Primary Care Provider] - 1 Week Discharge Medications: Continued aspirin 81 mg tablet,delayed release (DR/EC) 81 mg PO DAILY Qty: 90 1RF ondansetron 4 mg tablet,disintegrating 4 mg PO Q8H PRN (Reason: nausea and vomiting) Qty: 20 0RF cholecalciferol (vitamin D3) 1,250 mcg (50,000 unit) capsule 1,250 mcg PO FR warfarin 5 mg Tablet 7.5 mg PO Q48H Protocol: Dose Management Condition: Friday (Week One) Dose/Route: 5 mg Instruction: 1 x 5 mg tablet Condition: Friday Dose/Route: 0 mg Instruction: 0 tablets Condition: Friday Dose/Route: 0 mg Instruction: 0 tablets Condition: Friday Dose/Route: 0 mg Instruction: 0 tablets Condition: Dose/Route: 0 mg Instruction: 0 tablets Condition: Friday Dose/Route: 5 mg Instruction: 1 x 5 mg tablet Condition: Friday Dose/Route: 5 mg Instruction: 1 x 5 mg tablet Condition: Friday (Week Two) Dose/Route: 5 mg Instruction: 1 x 5 mg tablet Condition: Friday Dose/Route: 5 mg Instruction: 1 x 5 mg tablet Condition: Friday Dose/Route: 5 mg Instruction: 1 x 5 mg tablet Condition: Friday Dose/Route: 5 mg Instruction: 1 x 5 mg tablet Condition: Dose/Route: 5 mg Instruction: 1 x 5 mg tablet Condition: Friday Dose/Route: 5 mg Instruction: 1 x 5 mg tablet Condition: Friday Dose/Route: 5 mg Instruction: 1 x 5 mg tablet Protocol Text: Adjustment Start Date: Friday03/26/24 INR Value: 1.9 INR Date: 03/26/24 Recheck Date: 03/29/24 Additional Instructions: REVIEW FOOD LIST WEEKLY, NO GREENS TODAY BECAUSE YOUR INR IS LOW pantoprazole 40 mg tablet,delayed release (DR/EC) 40 mg PO DAILY@0630 sucralfate [Carafate] 100 mg/mL suspension 10 ml PO BID ferrous sulfate 324 mg (65 mg iron) tablet,delayed release (DR/EC) 324 mg PO DAILY Qty: 30 0RF diclofenac sodium 1 % gel 2 g topical QID PRN (Reason: elbow pain ) Qty: 100 0RF Rx Instructions: apply to single elbow, wrist or hand; for hand includes palm/fingers/back of hand clopidogrel 75 mg tablet 75 mg PO DAILY warfarin 5 mg tablet 5 mg PO Q48H Protocol: Dose Management Condition: Friday (Week One) Dose/Route: 5 mg Instruction: 1 x 5 mg tablet Condition: Friday Dose/Route: 0 mg Instruction: 0 tablets Condition: Friday Dose/Route: 0 mg Instruction: 0 tablets Condition: Friday Dose/Route: 0 mg Instruction: 0 tablets Condition: Dose/Route: 0 mg Instruction: 0 tablets Condition: Friday Dose/Route: 5 mg Instruction: 1 x 5 mg tablet Condition: Friday Dose/Route: 5 mg Instruction: 1 x 5 mg tablet Condition: Friday (Week Two) Dose/Route: 5 mg Instruction: 1 x 5 mg tablet Condition: Friday Dose/Route: 5 mg Instruction: 1 x 5 mg tablet Condition: Friday Dose/Route: 5 mg Instruction: 1 x 5 mg tablet Condition: Friday Dose/Route: 5 mg Instruction: 1 x 5 mg tablet Condition: Dose/Route: 5 mg Instruction: 1 x 5 mg tablet Condition: Friday Dose/Route: 5 mg Instruction: 1 x 5 mg tablet Condition: Friday Dose/Route: 5 mg Instruction: 1 x 5 mg tablet Protocol Text: Adjustment Start Date: Friday03/26/24 INR Value: 1.9 INR Date: 03/26/24 Recheck Date: 03/29/24 Additional Instructions: REVIEW FOOD LIST WEEKLY, NO GREENS TODAY BECAUSE YOUR INR IS LOW Discontinued mesalamine [Apriso] 0.375 gram capsule,extended release 24hr 1.5 g PO DAILY No Action octreotide acetate 100 mcg/mL (1 mL) syringe 100 mcg subcut Q12H 30 Days Qty: 60 1RF Discharge Orders: Discharge Order (Routine); Ordered 03/25/24 Ordered By: Ignacio Blanco Diet: Advance to usual diet Activity on Discharge: As tolerated Stand Alone Forms: Patient Portal Discharge page Print Language: Indonesian Care Plan Goals: Continue all home medications as before Keep INR around 2.5 avoid INR greater than 3 Check PT INR at a.m. and adjust dosage Returned to check with recurrent episodes of black/maroon stools Use Sandostatin subQ twice daily Strongly recommend to abstain from smoking. Health Concerns: History of mesenteric ischemia Plan of Treatment: Outpatient follow-up with GI call for appointment outpatient follow-up with vascular surgery call for appointment. Assessment: As above Discharge Date/Time: 03/25/24 14:20
--- NOTE | 2024-03-25 13:37 | MHC.CM.PN ---
Patient has been medically cleared for dc to home today, self care.
== END 2024-03-25 14:20 | disposition home or self-care (01) | DRG 253 ==
LOC: HO.ED 15:21 → HO.EDOVER 16:28 → HO.IMC 19:51 → HO.EDOVER 20:22 → HO.IMC 23:31
PROVIDERS: Internal Medicine Gastroenterology; Admitting Provider Hospitalist; Emergency Provider Emergency Medicine; PCP Internal Medicine; Visit Provider Hospitalist
PROC: 0DJ08ZZ Inspection of Upper Intestinal Tract, Via Natural or Artificial Opening Endoscopic (ICD-10-PCS; CPT 43235; principal; 2024-03-24 11:00)
DX: K31.811 Angiodysplasia of stomach and duodenum with bleeding (principal); D62 Acute posthemorrhagic anemia; I25.10 Atherosclerotic heart disease of native coronary artery without angina pectoris; E78.5 Hyperlipidemia, unspecified; F17.210 Nicotine dependence, cigarettes, uncomplicated; Z71.6 Tobacco abuse counseling; Z79.01 Long term (current) use of anticoagulants; Z79.02 Long term (current) use of antithrombotics/antiplatelets; Z79.82 Long term (current) use of aspirin; Z79.899 Other long term (current) drug therapy
CPT/HCPCS: 36415; 74174; 78278; 80048; 80053; 80076; 81003; 82248; 82272; 82728; 83540; 83690; 83735; 84484; 85014; 85018; 85025; 85027; 85610; 85730; 86850; 86900; 86901; 86923; 93005; 99285; A9560; J1596; J1650; J1756; J2270; J2354; J2405; J2470; J2704; P9016; Q9967

== ENCOUNTER → 2024-03-22 16:24 | Outpatient (BNV) | payer OTHER, SELFPAY | PROVIDERS: Admitting Provider Hospitalist; Emergency Provider Emergency Medicine; PCP Internal Medicine; Visit Provider Internal Medicine Gastroenterology | DX: K92.2 Gastrointestinal hemorrhage, unspecified (principal); D64.9 Anemia, unspecified; K31.811 Angiodysplasia of stomach and duodenum with bleeding | CPT/HCPCS: 43239; 43255; 99223; 99232 ==

== ENCOUNTER → 2024-03-22 16:24 | Outpatient (BNV) | payer OTHER, SELFPAY | PROVIDERS: Admitting Provider Hospitalist; Emergency Provider Emergency Medicine; PCP Internal Medicine; Visit Provider Physician Assistant | DX: K92.2 Gastrointestinal hemorrhage, unspecified (principal) | CPT/HCPCS: 99223; 99232; 99239; 99499 ==

== ENCOUNTER 2024-03-26 13:02 | Outpatient (AMB) | payer OTHER, SELFPAY ==
[2024-03-26 13:13] LABS: Prothrombin Time Whole Bld POC 23.4 sec (11.1-13.5); ~PT, ~INR - Anti Coag Clinic 1.9 (0.9-1.1)
--- NOTE | 2024-03-26 13:25 | MHC.OFFVISCO ---
Intake Intake Visit Reasons: Anticoagulation Allergies No Known Allergies Allergy (Verified 03/26/24 13:04) Medication List - Last Reconciled 03/26/24 by Nolvia Trinidad RN aspirin 81 mg PO DAILY cholecalciferol (vitamin D3) 1,250 mcg PO FR clopidogrel 75 mg PO DAILY diclofenac sodium 1% 2 grams topical QID PRN ferrous sulfate 324 mg PO DAILY octreotide acetate 100 mcg subcut Q12H ondansetron 4 mg PO Q8H PRN pantoprazole 40 mg PO DAILY@0630 sucralfate (Carafate) 10 mL PO BID warfarin 7.5 mg See Protocol PO Q48H warfarin 5 mg See Protocol PO Q48H Nursing Note INR 1.9?? out of therapeutic range prevoius INR 1.7 yesterday Medications and supplements reviewed Patient status: Feeling better able to eat, still has black stools - he states md stated he ma have it for a few more days as his body clears it out Medications or supplements: starting on carafate starting to day that can lower the INR Diet: improving Denies any signs and symptoms of bleeding or clotting or unusual bruising Bleeding, bruising, clotting discussed Nutritional guidance given: eat soft foods for 2 more days so nothing scrapes bowels, may have 1 ensure or boost over the weekend for nutrients Dose: start 5mg daily F/U INR Date : 03/29/24 ?? Patient verbalizing understanding of instructions given. Anti-Coag Initial Assessment Social Hx Patient Tobacco Use Status: Current everyday Tobacco user Tobacco use type: Cigar alcohol intake: former Alcohol intake frequency: does not drink Cardiovascular Hx: HTN, Angina, [place] (PRE-[place] AGE 28) and Varicose Veins (SPIDER VEINS ) Lung Disease HX: DVT/PE (MESENTERIC MULTIPLE CLOTS) Musculoskeletal Hx: Arthritis Blood Disorder Hx: Anemia GI Hx: Bleeding (GI, rectal) Neurological Hx: Serious Head Injury ( A CHILD HEAD INJURY REQUIRUIRING SURGERY ) Cancer HX: No (FAMILY HX ) Psych. Illness/Depression: No Coding Level of Care Code Est Patient Level 1 Diagnoses Current use of anticoagulant therapy Z79.01 Results AMB INR Fingerstick AMB INR Fingerstick 1.9 Last Edit by Nolvia Trinidad RN on 03/26/24 13:15 manual entry Assessment & Plan Assessment & Plan (1) Current use of anticoagulant therapy: Code(s): Z79.01 - senior living (current) use of anticoagulants Category: Medical
== END 2024-03-26 13:51 | disposition home or self-care (01) ==
LOC: HO.ACS 13:02
PROVIDERS: PCP Internal Medicine; Visit Provider Internal Medicine
DX: Z79.01 Long term (current) use of anticoagulants (principal)

== ENCOUNTER → 2024-03-26 13:02 | Outpatient (BNVA) | payer OTHER, SELFPAY | PROVIDERS: PCP Internal Medicine; Visit Provider Internal Medicine | DX: K55.059 Acute (reversible) ischemia of intestine, part and extent unspecified (principal); Z79.01 Long term (current) use of anticoagulants; Z51.81 Encounter for therapeutic drug level monitoring | CPT/HCPCS: 85610; 99211 ==

== ENCOUNTER 2024-03-29 10:15 | Outpatient (AMB) | payer OTHER, SELFPAY ==
[2024-03-29 10:28] LABS: Prothrombin Time Whole Bld POC 21.5 sec (11.1-13.5); ~PT, ~INR - Anti Coag Clinic 1.8 (0.9-1.1)
--- NOTE | 2024-03-29 10:38 | MHC.OFFVISCO ---
Intake Intake Visit Reasons: Anticoagulation Allergies No Known Allergies Allergy (Verified 03/29/24 10:21) Medication List - Last Reconciled 03/29/24 by Stefanie Del Toro RN aspirin 81 mg PO DAILY cholecalciferol (vitamin D3) 1,250 mcg PO FR clopidogrel 75 mg PO DAILY diclofenac sodium 1% 2 grams topical QID PRN ferrous sulfate 324 mg PO DAILY octreotide acetate 100 mcg subcut Q12H 30 days ondansetron 4 mg PO Q8H PRN pantoprazole 40 mg PO DAILY@0630 sucralfate (Carafate) 10 mL PO BID warfarin 7.5 mg See Protocol PO Q48H warfarin 5 mg See Protocol PO Q48H Nursing Note INR 1.8?out of therapeutic range of 2-3 Medications and supplements reviewed Patient status: still feels weak s/p GIB. Medications or supplements: no new as of last visit continues on carafate which can decrease the INR Diet: usual diet for pt Denies any signs and symptoms of bleeding or clotting or unusual bruising Bleeding, bruising, clotting discussed Nutritional guidance given: to hold greens today Dose: 7.5mg X 2 days and 5mg X 5 days F/U INR Date : 04/05/24?? Patient verbalizing understanding of instructions given. Anti-Coag Initial Assessment Social Hx Patient Tobacco Use Status: Current everyday Tobacco user Tobacco use type: Cigar alcohol intake: former Alcohol intake frequency: does not drink Cardiovascular Hx: HTN, Angina, [place] (PRE-[place] AGE 28) and Varicose Veins (SPIDER VEINS ) Lung Disease HX: DVT/PE (MESENTERIC MULTIPLE CLOTS) Musculoskeletal Hx: Arthritis Blood Disorder Hx: Anemia GI Hx: Bleeding (GI, rectal) Neurological Hx: Serious Head Injury ( A CHILD HEAD INJURY REQUIRUIRING SURGERY ) Cancer HX: No (FAMILY HX ) Psych. Illness/Depression: No Coding Level of Care Code Est Patient Level 2 Diagnoses Current use of anticoagulant therapy Z79.01 Results AMB INR Fingerstick AMB INR Fingerstick 1.8 Last Edit by Stefanie Del Toro RN on 03/29/24 10:36 interface delay Assessment & Plan Assessment & Plan (1) Current use of anticoagulant therapy: Code(s): Z79.01 - [facility] (current) use of anticoagulants Category: Medical
== END 2024-03-29 10:42 | disposition home or self-care (01) ==
LOC: HO.ACS 10:15
PROVIDERS: PCP Internal Medicine; Visit Provider Internal Medicine
DX: Z79.01 Long term (current) use of anticoagulants (principal)

== ENCOUNTER → 2024-03-29 10:15 | Outpatient (BNVA) | payer OTHER, SELFPAY | PROVIDERS: PCP Internal Medicine; Visit Provider Internal Medicine | DX: K55.059 Acute (reversible) ischemia of intestine, part and extent unspecified (principal); Z79.01 Long term (current) use of anticoagulants; Z51.81 Encounter for therapeutic drug level monitoring | CPT/HCPCS: 85610; 99212 ==

== ENCOUNTER 2024-03-30 12:48 | Inpatient (IN) | payer OTHER, SELFPAY ==
[2024-03-30] VITALS (11 sets, daily range): BP systolic 114–141; BP diastolic 54–84; PULSE 72–96; RESP 12–21; TEMP 36.6–37.1; O2SAT 100; BMI 22.5
--- NOTE | 2024-03-30 13:06 | ED.GIBLEED ---
HPI - GI Bleed General Chief complaint: GI Bleed Stated complaint: tranfusion Time Seen by Provider: 03/30/24 14:05 Source: patient Mode of arrival: ambulatory Limitations: no limitations History of Present Illness ED Provider: Dr. Alegria HPI Narrative: 48 year old male PMH: recent UGIB (admitted here from 03/22-03/25 with ?AVM on EGD), iron deficiency anemia requiring 4 units of blood and IV iron transfusions who presents to the ER for H/H 6.2/20.4 on outpatient labs. Discharged 03/25 with H/H of 9.8/31.2. Patient states he has been doing well as noticed some really dark stools he was following up with his vascular surgeon on [place] we started to feel weakness and have increased dark stools and bowel movements. Patient came in here was seen in triage labs were ordered as well as Protonix. Related Data Home Medications ?Medication ?Instructions ?Recorded ?Confirmed clopidogrel 75 mg tablet 75 mg PO DAILY 03/12/24 03/29/24 warfarin 5 mg tablet 5 mg PO Q48H 03/12/24 03/29/24 cholecalciferol (vitamin D3) 1,250 1,250 mcg PO FR 03/22/24 03/29/24 mcg (50,000 unit) capsule pantoprazole 40 mg tablet,delayed 40 mg PO DAILY@0630 03/22/24 03/29/24 release sucralfate 100 mg/mL oral 10 ml PO BID 03/22/24 03/29/24 suspension (Carafate) warfarin 5 mg tablet 7.5 mg PO Q48H 03/22/24 03/29/24 Previous Rx's ?Medication ?Instructions ?Recorded diclofenac sodium 1 % topical gel 2 g topical QID PRN elbow pain 11/29/21 #100 grams ondansetron 4 mg disintegrating 4 mg PO Q8H PRN nausea and 01/30/24 tablet vomiting #20 tabs aspirin 81 mg tablet,delayed 81 mg PO DAILY #90 tabs 02/18/24 release ferrous sulfate 324 mg (65 mg 324 mg PO DAILY #30 tabs 03/09/24 iron) tablet,delayed release octreotide acetate 100 mcg/mL (1 100 mcg subcut Q12H 30 days #60 mL 03/29/24 mL) injection syringe Allergies Allergy/AdvReac Type Severity Reaction Status Date / Time No Known Allergies Allergy Verified 03/30/24 13:07 [facility] Past Medical History Medical History Anemia Vitamin D deficiency Mesenteric artery thrombosis CAD (coronary artery disease) Hyperlipidemia Iron deficiency anemia 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 Maternal Aunt No problems noted. Social History Social History Household Members: Spouse Housing: Apartment Do you presently have visiting nurse or other home services: No Alcohol intake: former Patient Tobacco Use Status: Current everyday Tobacco user Tobacco use type: Cigar Cigarettes Per Day: 1 Years Smoked: 3 Smoked in Last 30 Days: No e-Cigarette/Vaping Use: Never Used Use of substances other than those prescribed or required for medical reasons: No Substance Use Type: Marijuana Advance Directives: No service: No Current occupational status: employed Current occupational exposures/hazards: No Cognitive needs: No Hearing needs: No Vision needs: No Physical Exam Vital Signs: Vital Signs: Last Vital Signs Temp 98.6 F 03/30/24 13:04 Pulse 96 03/30/24 13:04 Resp 16 03/30/24 13:04 BP 141/80 H 03/30/24 13:04 Pulse Ox 100 03/30/24 13:04 O2 Del Method Room Air 03/30/24 13:04 BMI result Body Mass Index 22.5 Course Course Course Narrative: This is a Rapid Medical Examination (RME) performed by Eleanor Jones PA-C in triage. Full HPI, ROS, assessment and treatment plan per primary provider in the Main ED. 48 yo male with history of recent UGIB (admitted here from 03/22-03/25 with ?AVM on EGD), iron deficiency anemia requiring 4 units of blood and IV iron transfusions who presents to the ER for H/H 6.2/20.4 on outpatient labs. Discharged 03/25 with H/H of 9.8/31.2. Reports weakness but no SOB, chest pain. Reports black BMs, last was today x1. He is on oral iron. Plan: labs, T&S, transfuse, GI consult, admit Medical Decision Making Medical Decision Making [facility] Narrative: Upper GI bleed as the patient Protonix I will transfuse the patient did consent the patient patient is happy with the plan I will admit the patient consult GI Differential Diagnosis Differential Diagnoses: The differential diagnosis associated with the presentation includes Likely upper GI bleed weakness dehydration Admission/Observation Consideration of admission/observation: Escalation of care including admission/observation considered Consult Healthcare Provider Management of the patient was discussed with: Hospitalist and Resident Caregiver I discussed the case with Gi and hospitalist Lab Data [facility] Lab Attestation statement: I reviewed the patient's lab results. 03/30/24 13:48 03/30/24 13:48 Labs: Lab Results 03/30/24 Range/Units 13:48 WBC 7.7 (4.8-10.8) X10*3/uL RBC 1.98 L D (4.60-5.80) X10*6/uL Hgb 5.8 L* D (14.0-18.0) g/dl Hct 18.5 L* D (42.0-52.0) % MCV 93.4 (80.0-98.0) fL MCH 29.3 (27.0-33.0) pg MCHC 31.4 (31.0-36.0) g/dl RDW 20.4 H (11.0-16.0) % Plt Count 366 D (160-400) X10*3/uL MPV 9.3 L (9.4-12.4) fL Immature Gran % (Auto) 0.8 H (0.0-0.4) % Neut % (Auto) 66.6 (45-73) % Lymph % (Auto) 21.7 (20-40) % [place] % (Auto) 9.7 (2-11) % Eos % (Auto) 0.8 (0-4) % Baso % (Auto) 0.4 (0-2) % Lymph # (Auto) 1.7 (1.2-4.9) X10*3/uL [place] # (Auto) 0.8 (0.1-1.2) X10*3/uL Eos # (Auto) 0.1 (0.0-0.4) X10*3/uL Baso # (Auto) 0.0 (0.0-0.2) X10*3/uL Abs Immat Gran (auto) 0.06 H (0.00-0.03) X10*3/uL Absolute Neuts (auto) 5.2 (2.0-8.3) x10*3/uL Absolute Nucleated RBC 0.040 H (0.0-0.012) X10*3/uL Nucleated RBC % (auto) 0.5 H (0.0-0.2) /100WBC PT 23.2 H (11.1-13.3) SEC INR 1.9 H (0.9-1.1) APTT 31.3 (26.0-36.8) SEC Sodium 137 (135-145) mmol/L Potassium 3.8 (3.3-5.1) mmol/L Chloride 108 (96-108) mmol/L Carbon Dioxide 22 (22-29) mmol/L Anion Gap 11 L (12-20) BUN 11 (9-16) mg/dL Creatinine 0.67 (0.5-1.4) mg/dL Estim Creat Clear Calc 143.7 Estimated GFR > 60 Random Glucose 128 H (60-115) mg/dL Calcium 8.5 D (8.4-10.2) mg/dL Magnesium 1.8 (1.6-2.6) mg/dL Total Bilirubin 0.3 (0.0-1.0) mg/dL Direct Bilirubin 0.1 (0.0-0.5) mg/dL AST 14 (5-37) U/L ALT 10 (0-40) U/L Alkaline Phosphatase 51 (39-117) U/L Total Protein 5.7 L (6.5-8.0) g/dL Albumin 3.5 (3.5-5.0) g/dL Independent Interpretation I performed an independent interpretation of an: EKG and Plain X-Ray Radiology Impression Discussion of test interpretation with radiology: I have reviewed the radiologist's reading. Critical Care Time Critical Care Time Critical Care Time: Yes Total Critical Care Time: 40 Attestation: Patient with acute anemia requiring transfusion I did consent the patient for blood transfusion going or others and benefits I did consult GI as well as hospitalist and will admit to medicine Discharge Plan Discharge Clinical Impression: Acute upper gastrointestinal bleeding, Acute dehydration Patient Disposition: Admitted As Inpatient Prescriptions: No Action aspirin 81 mg tablet,delayed release (DR/EC) 81 mg PO DAILY Qty: 90 1RF octreotide acetate 100 mcg/mL (1 mL) syringe 100 mcg subcut Q12H 30 Days Qty: 60 1RF ondansetron 4 mg tablet,disintegrating 4 mg PO Q8H PRN (Reason: nausea and vomiting) Qty: 20 0RF cholecalciferol (vitamin D3) 1,250 mcg (50,000 unit) capsule 1,250 mcg PO FR warfarin 5 mg Tablet 7.5 mg PO Q48H Protocol: Dose Management Condition: Friday (Week One) Dose/Route: 5 mg Instruction: 1 x 5 mg tablet Condition: Friday Dose/Route: 7.5 mg Instruction: 1.5 x 5 mg tablets Condition: Friday Dose/Route: 5 mg Instruction: 1 x 5 mg tablet Condition: Friday Dose/Route: 5 mg Instruction: 1 x 5 mg tablet Condition: Dose/Route: 7.5 mg Instruction: 1.5 x 5 mg tablets Condition: Friday Dose/Route: 5 mg Instruction: 1 x 5 mg tablet Condition: Friday Dose/Route: 5 mg Instruction: 1 x 5 mg tablet Condition: Friday (Week Two) Dose/Route: 5 mg Instruction: 1 x 5 mg tablet Condition: Friday Dose/Route: 7.5 mg Instruction: 1.5 x 5 mg tablets Condition: Friday Dose/Route: 5 mg Instruction: 1 x 5 mg tablet Condition: Friday Dose/Route: 5 mg Instruction: 1 x 5 mg tablet Condition: Dose/Route: 7.5 mg Instruction: 1.5 x 5 mg tablets Condition: Friday Dose/Route: 5 mg Instruction: 1 x 5 mg tablet Condition: Friday Dose/Route: 5 mg Instruction: 1 x 5 mg tablet Protocol Text: Adjustment Start Date: Friday03/29/24 INR Value: 1.8 INR Date: 03/29/24 Recheck Date: 04/05/24 pantoprazole 40 mg tablet,delayed release (DR/EC) 40 mg PO DAILY@0630 sucralfate [Carafate] 100 mg/mL suspension 10 ml PO BID ferrous sulfate 324 mg (65 mg iron) tablet,delayed release (DR/EC) 324 mg PO DAILY Qty: 30 0RF diclofenac sodium 1 % gel 2 g topical QID PRN (Reason: elbow pain ) Qty: 100 0RF Rx Instructions: apply to single elbow, wrist or hand; for hand includes palm/fingers/back of hand clopidogrel 75 mg tablet 75 mg PO DAILY warfarin 5 mg tablet 5 mg PO Q48H Protocol: Dose Management Condition: Friday (Week One) Dose/Route: 5 mg Instruction: 1 x 5 mg tablet Condition: Friday Dose/Route: 7.5 mg Instruction: 1.5 x 5 mg tablets Condition: Friday Dose/Route: 5 mg Instruction: 1 x 5 mg tablet Condition: Friday Dose/Route: 5 mg Instruction: 1 x 5 mg tablet Condition: Dose/Route: 7.5 mg Instruction: 1.5 x 5 mg tablets Condition: Friday Dose/Route: 5 mg Instruction: 1 x 5 mg tablet Condition: Friday Dose/Route: 5 mg Instruction: 1 x 5 mg tablet Condition: Friday (Week Two) Dose/Route: 5 mg Instruction: 1 x 5 mg tablet Condition: Friday Dose/Route: 7.5 mg Instruction: 1.5 x 5 mg tablets Condition: Friday Dose/Route: 5 mg Instruction: 1 x 5 mg tablet Condition: Friday Dose/Route: 5 mg Instruction: 1 x 5 mg tablet Condition: Dose/Route: 7.5 mg Instruction: 1.5 x 5 mg tablets Condition: Friday Dose/Route: 5 mg Instruction: 1 x 5 mg tablet Condition: Friday Dose/Route: 5 mg Instruction: 1 x 5 mg tablet Protocol Text: Adjustment Start Date: Friday03/29/24 INR Value: 1.8 INR Date: 03/29/24 Recheck Date: 04/05/24 Print Language: Danish
--- NOTE | 2024-03-30 13:08 | ECG_ITS ---
Test Reason : weakness Blood Pressure : / mmHG Vent. Rate : 091 BPM Atrial Rate : 091 BPM P-R Int : 116 ms QRS Dur : 090 ms QT Int : 330 ms P-R-T Axes : 062 022 -17 degrees QTc Int : 405 ms Normal sinus rhythm Normal ECG When compared with ECG of 08-MAR-2024 23:16, No significant change was found Referred By: Rebeka Jones Electronically Signed By:VINAY HER MD
[2024-03-30 13:53] LABS: MANUAL DIFF FLAG NO
--- NOTE | 2024-03-30 14:00 | PC.NURSE ---
patient arrives ambulatory with steady gait through external triage, states his doctors office sent him in due to low blood count, patient with hx of needing transfusions, blood work at Drs office shows RBC count 2.20, Hb 6.2, Hct 20.4 patient denies any sx. states he usually runs low, and he currently does not feel like he is running low. patient denies chest pain, shortness of breath, or fatigue. states usually when it is very low he is able to tell. PIV placed by this RN, blood work drawn and sent. patient changed into hospital attire, placed on school bus monitor.
[2024-03-30 14:02] LABS: Basophils Percent Auto 0.4 % (0-2); Eosinophils Absolute Auto 0.1 X10*3/uL (0.0-0.4); Eosinophils Percent Auto 0.8 % (0-4); INTERNATIONAL NORM RATIO 1.9 (0.9-1.1); Imm Gran Abs Auto 0.06 X10*3/uL (0.00-0.03); Imm Gran Pct Auto 0.8 % (0.0-0.4); Lymphocytes Absolute Auto 1.7 X10*3/uL (1.2-4.9); Lymphocytes Percent Auto 21.7 % (20-40); Mean Corpuscular HGB Conc 31.4 g/dl (31.0-36.0); Mean Corpuscular Hemoglobin 29.3 pg (27.0-33.0); Mean Corpuscular Volume 93.4 fL (80.0-98.0); Mean Platelet Volume 9.3 fL (9.4-12.4); Monocytes Absolute Auto 0.8 X10*3/uL (0.1-1.2); Monocytes Percent Auto 9.7 % (2-11); NRBC Pct Auto 0.5 /100WBC (0.0-0.2); Neutrophils Absolute Auto 5.2 x10*3/uL (2.0-8.3); Neutrophils Percent Auto 66.6 % (45-73); Platelet Count 366 X10*3/uL (160-400); Prothrombin Time 23.2 SEC (11.1-13.3); Red Blood Count 1.98 X10*6/uL (4.60-5.80); Red Cell Distribution Width 20.4 % (11.0-16.0)
[2024-03-30 14:05] LABS: Hematocrit 18.5 % (42.0-52.0); Hemoglobin 5.8 g/dl (14.0-18.0); Partial Thromboplastin Time 31.3 SEC (26.0-36.8)
[2024-03-30 14:06] LABS: White Blood Count 7.7 X10*3/uL (4.8-10.8)
[2024-03-30 14:12] LABS: Alanine Aminotransferase 10 U/L (0-40); Albumin Level 3.5 g/dL (3.5-5.0); Alkaline Phosphatase 51 U/L (39-117); Anion Gap 11 (12-20); Aspartate Amino Transferase 14 U/L (5-37); Bilirubin Direct 0.1 mg/dL (0.0-0.5); Bilirubin Total 0.3 mg/dL (0.0-1.0); Blood Urea Nitrogen 11 mg/dL (9-16); Calcium 8.5 mg/dL (8.4-10.2); Carbon Dioxide 22 mmol/L (22-29); Chloride 108 mmol/L (96-108); Creatinine Clr Calc Pharmacy 143.7; Estimated Glomerular Filt Rate > 60; Glucose Random 128 mg/dL (60-115); Magnesium 1.8 mg/dL (1.6-2.6); Potassium 3.8 mmol/L (3.3-5.1); Sodium 137 mmol/L (135-145); Total Protein 5.7 g/dL (6.5-8.0)
[2024-03-30] MEDS: 0.9 % Sodium Chloride 1,000 ML 999 ML IV (15:01)
--- NOTE | 2024-03-30 15:31 | PM.IMHP ---
History of Present Illness Date of Service: 03/30/24 Attending physician on admission: [facility] Chief Complaint: dark stools 48-year-old gentleman with past medical history significant for 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 and recent celiac artery stenting ([facility] vascular) 02/2024 on coumadin with lovenox bridge/asa/plavix, history of hyperlipidemia, iron deficiency anemia, history of peptic ulcer disease, depression, internal hemorrhoids presented to the ED at the recommendation of [facility] vascular surgery due to low blood counts. Per , hgb at [facility] was 6.4 today and was advised to come in. Per , vascular surgery recommending iron and blood transfusions. H/H on arrival 5.8/18.5%, was last 9.8/31.2% on 03/25 day of discharge. He is hemodynamically stable and is reporting black tarry stool ongoing x 2 weeks. Today having mild epigastric pain. No fevers, chills, nausea, vomiting, diarrhea, BRBPR, palpitations, sob, chest pain. He has had positional lightheadedness. Last admission, 03/22-03/25 with egd/colonoscopy on 03/24 showing AVMs. Recommendations from GI at the time included iron supplementation, ppi, and octreotide subcut. Has been restarted on blood thinners. CTA abd shows patent SMA stent, no acute abnormality. In the ED, given IVF adn iv pantoprazole. Review of Systems Review of Systems: Yes all other systems are reviewed and are negative [facility] Medical History Anemia Vitamin D deficiency Mesenteric artery thrombosis CAD (coronary artery disease) Hyperlipidemia Iron deficiency anemia Superior mesenteric artery stenosis Celiac artery stenosis Vaccine refused by patient (~09/05/23) Cigar smoker unmotivated to quit Chronic vascular insufficiency of intestine Impaired fasting glucose Diarrhea Granular cell tumor Chronic GERD Family History Maternal Aunt No problems noted. Maternal Aunt No problems noted. Surgical History H/O heart artery stent History of esophagogastroduodenoscopy (EGD) Hx of colectomy Hx of appendectomy Hx of colonoscopy Social History Household Members: Spouse Housing: Apartment Do you presently have visiting nurse or other home services: No Alcohol intake: former Patient Tobacco Use Status: Former Tobacco user Tobacco use type: Cigar Cigarettes Per Day: 1 Years Smoked: 3 Smoked in Last 30 Days: No e-Cigarette/Vaping Use: Never Used Use of substances other than those prescribed or required for medical reasons: No Substance Use Type: Marijuana Currently Displaying Signs/Symptoms of Drug Intoxication Withdrawal: No Have you been hit, kicked, punched, or otherwise hurt by someone within the past year? If so, by whom?: No Do you feel safe in your current relationship?: Yes Is there a partner from a previous relationship who is making you feel unsafe now?: No Are you made to feel afraid or neglected: No Advance Directives: No Do you have a plan to hurt others: No Plan Recently lost weight without trying: No Poor oral hygiene: No service: No Current occupational status: employed Current occupational exposures/hazards: No Cognitive needs: No Hearing needs: No Vision needs: No Meds Allergies Allergy/AdvReac Type Severity Reaction Status Date / Time No Known Allergies Allergy Verified 03/30/24 13:07 Home Medications ?Medication ?Instructions ?Recorded ?Confirmed ?Last Taken ?Type clopidogrel 75 mg tablet 75 mg PO DAILY 03/12/24 03/30/24 03/30/24 History warfarin 5 mg tablet 5 mg PO SUTUWEFRSA 03/12/24 03/30/24 03/29/24 History cholecalciferol (vitamin D3) 1,250 1,250 mcg PO FR 03/22/24 03/30/24 03/30/24 History mcg (50,000 unit) capsule pantoprazole 40 mg tablet,delayed 40 mg PO DAILY@0630 03/22/24 03/30/24 03/30/24 History release sucralfate 100 mg/mL oral 10 ml PO BID 03/22/24 03/30/24 03/30/24 History suspension (Carafate) warfarin 5 mg tablet 7.5 mg PO MOTH 03/22/24 03/30/24 03/28/24 History mesalamine 0.375 gram 1.5 g PO DAILY 03/30/24 03/30/24 03/30/24 History capsule,extended release 24 hr (Apriso) Physical Exam Vital Signs and Narrative: Vital Signs: Last Vital Signs Temp 98.5 F 03/30/24 14:00 Pulse 86 03/30/24 14:00 Resp 15 03/30/24 14:00 BP 114/54 L 03/30/24 14:00 Pulse Ox 100 03/30/24 14:00 O2 Del Method Room Air 03/30/24 14:00 BMI result Body Mass Index 22.5 Constitutional - Awake and Alert, No apparent distress Eyes - PERRLA, EOMI Cardiovascular - S1S2, RRR, No edema Respiratory - Normal lung expansion, Normal respiratory effort, No respiratory distress, CTA bilaterally Gastrointestinal - RLQ pain, ND; +BS; No rebound or guarding Extremities - no calf tenderness bilaterally, no swelling Skin - Warm/Dry Neurological - Alert & oriented x3 Psychological - Appropriate affect Results Labs 03/31/24 07:24 03/31/24 07:24 Labs: Laboratory Results - last 24 hr 03/30/24 03/30/24 13:48 14:40 MCV 93.4 MCH 29.3 MCHC 31.4 RDW 20.4 H Plt Count 366 D MPV 9.3 L Immature Gran % (Auto) 0.8 H Neut % (Auto) 66.6 Lymph % (Auto) 21.7 [place] % (Auto) 9.7 Eos % (Auto) 0.8 Baso % (Auto) 0.4 Lymph # (Auto) 1.7 [place] # (Auto) 0.8 Eos # (Auto) 0.1 Baso # (Auto) 0.0 Abs Immat Gran (auto) 0.06 H Absolute Neuts (auto) 5.2 Absolute Nucleated RBC 0.040 H Nucleated RBC % (auto) 0.5 H PT 23.2 H INR 1.9 H APTT 31.3 Anion Gap 11 L Estim Creat Clear Calc 143.7 Estimated GFR > 60 Random Glucose 128 H Calcium 8.5 D Magnesium 1.8 Total Bilirubin 0.3 Direct Bilirubin 0.1 AST 14 ALT 10 Alkaline Phosphatase 51 Total Protein 5.7 L Albumin 3.5 Blood Type O Positive Antibody Screen NEGATIVE Crossmatch See Detail Assessment and Plan (1) Acute upper gastrointestinal bleeding: Status: Acute Plan 48-year-old gentleman with past medical history significant for 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 and recent celiac artery stenting ([facility] vascular) 02/2024 on coumadin with lovenox bridge/asa/plavix, history of hyperlipidemia, iron deficiency anemia, history of peptic ulcer disease, depression, internal hemorrhoids admitted for acute GI bleeding #Acute GI bleeding with acute blood loss anemia -H/H 5.8/18.5, last 9.8/31.2% on 03/25. Iron studies pending -Transfuse 2 untis PRBC. Also IV iron per [facility] vascular surgery -hold asa, plavix, coumadin, lovenox (on bridge therapy) -IV ppi -subcut octreotide -gi consult. Last edg/colo 03/24 showed avm's -clear liquid diet -repeat h/h @8pm, follow cbc #Chronic vascular insufficiency of intestine -recent SMA/celiac artery stenting ([facility]) -hold blood thinners in setting of above #Cigarettes smoking -cessation counseling #HLD -statin dvt prophylaxis- scps full code pt requires inpt stay at least 2 midnights for management of acute gi bleeding with significant drop in hemoglobin requiring blood transfusion and close monitoring of blood counts with expert consultation Quality Stroke Does the patient have a stroke diagnosis?: No VTE Prior VTE?: No VTE Risk Level:: Medical - moderate - high VTE Device Contraindication: N/A - Device Ordered VTE Drug Contraindication: Treatment Not Indicated
[2024-03-30] MEDS: Pantoprazole Sodium 40 MG/10 ML VIAL IVPUSH (15:35)
--- NOTE | 2024-03-30 15:54 | PHA.MEDREC ---
Addendum entered by Pratik Khan [facility] 04/02/24 14:26: Per Dr. Jane enoxaprin 80mg sq BID added to med rec. Pt's provided a list, and did not included this information. Original Note: Pharmacy Consult ? Medication Reconciliation Pharmacy has completed the medication reconciliation. Spoke to patient to confirm med list. Patient states his Warfarin dose changes per INR weekly. He says his dose this week is Warafarin 7.5 Mondays and and Warfarin 5 mg Fri, Fri, Fri, and Fri. Octretide acetat 100 Mcg/mL every 12 hours has not been started because he is waiting on his nurse to come and inject it for him.
[2024-03-30 16:04] LABS: Iron 18 mcg/dL (45-160); Percent Iron Saturation 6 % (15-50); Total Iron Binding Capacity 283 mcg/dL (228-428); Unsaturated Iron Binding 265 ug/dL
[2024-03-30 16:24] LABS: Ferritin 68 ng/mL (20-250)
--- NOTE | 2024-03-30 16:44 | PC.NURSE ---
pattient tolerating first infusion well at this time, PIV running without difficulty. pharmacy called about iron infusion, will be reaching out to provider due to risks of side effects and inability to run while running PRBC
[2024-03-30] MEDS: Octreotide Acetate 100 MCG/ML AMPUL 50 MCG SUBCUT ×2 (17:30→23:20)
[2024-03-30] MEDS: Iron Sucrose Complex 200 MG in 0.9 % Sodium Chloride 100 ML 440 MG IV (18:39)
[2024-03-30] MEDS: Sucralfate Oral Suspension 1 GM/10 ML ORAL.SUSP PO (21:52)
[2024-03-31] VITALS (7 sets, daily range): BP systolic 112–140; BP diastolic 59–74; PULSE 63–77; RESP 16–20; TEMP 36.2–37.4; O2SAT 97–100
[2024-03-31] MEDS: Pantoprazole Sodium 40 MG/10 ML VIAL IVPUSH ×2 (05:36→16:44)
[2024-03-31 07:38] LABS: MANUAL DIFF FLAG NO
[2024-03-31 07:41] LABS: Basophils Absolute Auto 0.1 X10*3/uL (0.0-0.2); Basophils Percent Auto 0.7 % (0-2); Eosinophils Absolute Auto 0.1 X10*3/uL (0.0-0.4); Eosinophils Percent Auto 1.3 % (0-4); Hematocrit 27.6 % (42.0-52.0); Hemoglobin 8.7 g/dl (14.0-18.0); Imm Gran Abs Auto 0.05 X10*3/uL (0.00-0.03); Imm Gran Pct Auto 0.7 % (0.0-0.4); Lymphocytes Absolute Auto 1.1 X10*3/uL (1.2-4.9); Mean Corpuscular HGB Conc 31.5 g/dl (31.0-36.0); Mean Corpuscular Hemoglobin 29.1 pg (27.0-33.0); Mean Corpuscular Volume 92.3 fL (80.0-98.0); Mean Platelet Volume 9.2 fL (9.4-12.4); Monocytes Absolute Auto 0.8 X10*3/uL (0.1-1.2); Monocytes Percent Auto 12.3 % (2-11); NRBC Pct Auto 0.3 /100WBC (0.0-0.2); Neutrophils Absolute Auto 4.6 x10*3/uL (2.0-8.3); Platelet Count 359 X10*3/uL (160-400); Red Blood Count 2.99 X10*6/uL (4.60-5.80); Red Cell Distribution Width 18.8 % (11.0-16.0); White Blood Count 6.7 X10*3/uL (4.8-10.8)
[2024-03-31 08:01] LABS: Anion Gap 12 (12-20); Blood Urea Nitrogen 7 mg/dL (9-16); Calcium 8.7 mg/dL (8.4-10.2); Carbon Dioxide 24 mmol/L (22-29); Chloride 111 mmol/L (96-108); Creatinine Clr Calc Pharmacy 143.7; Estimated Glomerular Filt Rate > 60; Glucose Random 102 mg/dL (60-115); Potassium 4.5 mmol/L (3.3-5.1); Sodium 142 mmol/L (135-145)
[2024-03-31] MEDS: Octreotide Acetate 100 MCG/ML AMPUL 50 MCG SUBCUT ×3 (08:52→23:49)
[2024-03-31] MEDS: 0.9 % Sodium Chloride Flush 3 ML SYRINGE IVFLUSH ×3 (08:53→20:06)
[2024-03-31] MEDS: Sucralfate Oral Suspension 1 GM/10 ML ORAL.SUSP PO ×2 (08:53→20:05)
--- NOTE | 2024-03-31 08:57 | MHC.CM.PN ---
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 PT IS FULLY INDEP W/CARE, DENIES USE OF DME/HOME SERVICES, PT UTILIZES [facility], PT REPORTS HE COULD NOT GET A PCP APPT UNTIL 07/14 AND IS REQUESTING CM ASSIST W/FOLLOW UP APPT, TASK SENT TO CM OFFICE.
--- NOTE | 2024-03-31 09:02 | P.CNGI_ITS ---
History of Present Illness Data of Consult Service Date: 03/31/24 Requesting physician: Mercedez Edwards Primary Care Provider: Ngoc Fung MD HPI Reason for consult: anemia 48-year-old male with past medical history significant for 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 and recent celiac artery stenting ([facility] vascular) 02/2024 on coumadin with lovenox bridge/asa/plavix, history of hyperlipidemia, iron deficiency anemia, history of peptic ulcer disease, depression, internal hemorrhoids and smoking history who I am seeing for assessment for anemia. Patient had labs checked at [facility] and noted to have Hgb 6.4 on background hx of 2 weeks of dark stools. He was here previously with anemia and had EGD 03/24/24 with area of bleeding noted in distal duodenum treated with hemospray. He denies fevers, chills, nausea, vomiting, diarrhea, BRBPR, palpitations, sob, chest pain but does have lightheadedness. He was recommended to be on PPI, and octreotide from the last admission but had not received the octreotide when he got home He recived 2 units PRBC and HGB from 6 g/dl to around 9 g/dl. LAST CTA 03/22/24: patent SMA stent, no active bleeding source seen He has had several EGD between here and [facility], with AVM treated Review of Systems 2 Review of Systems: Constitutional : No Weight loss, No Fever, No Chills ENT/Mouth : No sore throat, No Rhinorrhea Eyes: No Swelling, No Redness Cardiovascular : No Chest Pain, No SOB, No Edema Respiratory : No Cough, No Sputum, No Wheezing Gastrointestinal : see HPI Genitourinary : NO Dysuria, No Urinary Frequency, No Hematuria, No Urgency Musculoskeletal : + joint pain, No Myalgias, No Joint Swelling Skin : No Skin Lesions, No rash Neuro : + Weakness, No Numbness, + Dizziness, No Headache Psych : No Anxiety/Panic, No Depression Heme/Lymph: No Bruising, No Lymphadenopathy Endocrine : No Polyuria, No Polydipsia All other systems reviewed and are negative. [facility] Past Medical History Medical History Anemia Vitamin D deficiency Mesenteric artery thrombosis CAD (coronary artery disease) Hyperlipidemia Iron deficiency anemia Superior mesenteric artery stenosis Celiac artery stenosis Vaccine refused by patient (~09/05/23) Cigar smoker unmotivated to quit Chronic vascular insufficiency of intestine Impaired fasting glucose Diarrhea Granular cell tumor Chronic GERD Family History Family History Maternal Aunt No problems noted. Maternal Aunt No problems noted. Surgical History Surgical History H/O heart artery stent History of esophagogastroduodenoscopy (EGD) Hx of colectomy Hx of appendectomy Hx of colonoscopy Social History Social History Household Members: Spouse Housing: Apartment Do you presently have visiting nurse or other home services: No Alcohol intake: former Patient Tobacco Use Status: Former Tobacco user Tobacco use type: Cigar Cigarettes Per Day: 1 Years Smoked: 3 Smoked in Last 30 Days: No e-Cigarette/Vaping Use: Never Used Use of substances other than those prescribed or required for medical reasons: No Substance Use Type: Marijuana Currently Displaying Signs/Symptoms of Drug Intoxication Withdrawal: No Have you been hit, kicked, punched, or otherwise hurt by someone within the past year? If so, by whom?: No Do you feel safe in your current relationship?: Yes Is there a partner from a previous relationship who is making you feel unsafe now?: No Are you made to feel afraid or neglected: No Advance Directives: No Do you have a plan to hurt others: No Plan Recently lost weight without trying: No Poor oral hygiene: No service: No Current occupational status: employed Current occupational exposures/hazards: No Cognitive needs: No Hearing needs: No Vision needs: No Meds Allergies Allergy/AdvReac Type Severity Reaction Status Date / Time No Known Allergies Allergy Verified 03/30/24 13:07 Active Medications: Current Medications Acetaminophen (Acetaminophen 325 Mg Tablet) 650 mg PO Q6H PRN PRN Reason: Pain, Mild (Pain Scale 1-3), fever or headache Calcium Carbonate (Calcium Carbonate 750 Mg Tab.Chew) 750 mg PO Q4H PRN PRN Reason: Heartburn Magnesium Hydroxide (Milk Of Magnesia 30 Ml Oral.Susp) 30 ml PO DAILY PRN PRN Reason: Constipation Melatonin (Melatonin 3 Mg Tablet) 6 mg PO BEDTIME PRN PRN Reason: Insomnia Non-Formulary Medication (Mesalamine [Apriso]) 1.5 gm PO DAILY [facility] Octreotide Acetate (Octreotide Acetate 100 Mcg/Ml Ampul) 50 mcg SUBCUT Q8H [facility] Last Admin: 03/31/24 08:52 Dose: 50 mcg Ondansetron HCl (Ondansetron Odt 4 Mg Tab.Rapdis) 4 mg TRANSLINGU Q8H PRN PRN Reason: nausea and vomiting Pantoprazole Sodium (Pantoprazole Sodium 40 Mg/10 Ml Vial) 40 mg IVPUSH BID@0630,1630 [facility] Last Admin: 03/31/24 05:36 Dose: 40 mg Sodium Chloride (0.9 % Sodium Chloride Flush 3 Ml Syringe) 3 ml IVFLUSH QSHIFT [facility] Last Admin: 03/31/24 08:53 Dose: 3 ml Sucralfate (Sucralfate Oral Suspension 1 Gm/10 Ml Oral.Susp) 1 gm PO BID [facility] Last Admin: 03/31/24 08:53 Dose: 1 gm Home Medications ?Medication ?Instructions ?Recorded ?Confirmed ?Last Taken ?Type clopidogrel 75 mg tablet 75 mg PO DAILY 03/12/24 03/30/24 03/30/24 History warfarin 5 mg tablet 5 mg PO SUTUWEFRSA 03/12/24 03/30/24 03/29/24 History cholecalciferol (vitamin D3) 1,250 1,250 mcg PO FR 03/22/24 03/30/24 03/30/24 History mcg (50,000 unit) capsule pantoprazole 40 mg tablet,delayed 40 mg PO DAILY@0630 03/22/24 03/30/24 03/30/24 History release sucralfate 100 mg/mL oral 10 ml PO BID 03/22/24 03/30/24 03/30/24 History suspension (Carafate) warfarin 5 mg tablet 7.5 mg PO MOTH 03/22/24 03/30/24 03/28/24 History mesalamine 0.375 gram 1.5 g PO DAILY 03/30/24 03/30/24 03/30/24 History capsule,extended release 24 hr (Apriso) Physical Exam 2 Vital Signs: Vital Signs: Last Vital Signs Temp 99.4 F 03/31/24 08:00 Pulse 77 03/31/24 08:00 Resp 20 03/31/24 08:00 BP 114/74 03/31/24 08:00 Pulse Ox 100 03/31/24 08:00 O2 Del Method Room Air 03/31/24 08:00 BMI result Body Mass Index 22.5 EXAM: GENERAL: The patient is well developed and nontoxic. VITAL SIGNS:see workflow HEENT: Nonicteric sclerae, PERRLA, EOMI. Oropharynx clear. Moist mucous membranes. Conjunctivae appear well perfused. No thyroid mass. CHEST: Chest wall is nontender. HEART: Regular rate and rhythm without murmurs. LUNGS: Clear to auscultation bilaterally. ABDOMEN: Soft, positive bowel sounds, nontender, no organomegaly.no flank tenderness SKIN: No rash, no excessive bruising, petechiae, or purpura. NEUROLOGIC: Cranial nerves II-XII intact without motor/sensory deficit. Psych: normal affect Results Labs 03/31/24 07:24 03/31/24 07:24 Labs: Short CBC 03/30/24 03/31/24 03/31/24 Range/Units 13:48 07:24 07:24 WBC 7.7 6.7 (4.8-10.8) X10*3/uL Hgb 5.8 L* D Cancelled 8.7 L D (14.0-18.0) g/dl Hct 18.5 L* D Cancelled (42.0-52.0) % Plt Count 366 D (160-400) X10*3/uL 03/31/24 Range/Units 07:24 WBC (4.8-10.8) X10*3/uL Hgb (14.0-18.0) g/dl Hct 27.6 L D (42.0-52.0) % Plt Count 359 (160-400) X10*3/uL BMP 03/30/24 03/31/24 13:48 07:24 Sodium 137 142 Potassium 3.8 4.5 Chloride 108 111 H Carbon Dioxide 22 24 BUN 11 7 L Creatinine 0.67 0.67 Calcium 8.5 D 8.7 Liver Function 03/30/24 Range/Units 13:48 Total Bilirubin 0.3 (0.0-1.0) mg/dL Direct Bilirubin 0.1 (0.0-0.5) mg/dL AST 14 (5-37) U/L ALT 10 (0-40) U/L Alkaline Phosphatase 51 (39-117) U/L Albumin 3.5 (3.5-5.0) g/dL Assessment and Plan (1) ABLA (acute blood loss anemia): Status: Acute Plan 1/ Acute on chronic blood loss, likely due to AVM --never received octreotide- difficult situation due to use of aspirin, plavix and couamdin which can't be stopped due to stetn thrombosis PLAN: 1/ Commence octreotide 100 mcg BID and ensure available on d/c 2/ cont with PPI 3/ hold on EGD for the moment, cont anticoagulation for the meantime, if ongoing GIB then consult hematology for use of thalidomide 4/ consider heme consult for hypercoag workup or check with [facility] if done there, might not need triple therapy Procedures Date of Service Date of Service: 03/31/24
--- NOTE | 2024-03-31 09:47 | P.PNIM_ITS ---
Subjective Subjective Date of Service: 03/31/24 Interval History: f/u on melana, acute blood loss anemia (ABLA) transfused 2 units yesterday with good effect, no report of bleeding today Physical Exam 2 Vital Signs: Vital Signs: Last Vital Signs Temp 99.4 F 03/31/24 08:00 Pulse 77 03/31/24 08:00 Resp 20 03/31/24 08:00 BP 114/74 03/31/24 08:00 Pulse Ox 100 03/31/24 08:00 O2 Del Method Room Air 03/31/24 08:00 BMI result Body Mass Index 22.5 Const: Other: General: AO X 3, no acute distress Resp: CTA bilateral CVS: S1,S2,RRR GI: +BS, NT, no distention Skin: No rash Neuro: motor grossly intact Psych: appropriate affect Objective Data Active Medications Acetaminophen (Acetaminophen 325 Mg Tablet) 650 mg PO Q6H PRN PRN Reason: Pain, Mild (Pain Scale 1-3), fever or headache Calcium Carbonate (Calcium Carbonate 750 Mg Tab.Chew) 750 mg PO Q4H PRN PRN Reason: Heartburn Magnesium Hydroxide (Milk Of Magnesia 30 Ml Oral.Susp) 30 ml PO DAILY PRN PRN Reason: Constipation Melatonin (Melatonin 3 Mg Tablet) 6 mg PO BEDTIME PRN PRN Reason: Insomnia Non-Formulary Medication (Mesalamine [Apriso]) 1.5 gm PO DAILY [facility] Octreotide Acetate (Octreotide Acetate 100 Mcg/Ml Ampul) 50 mcg SUBCUT Q8H [facility] Last Admin: 03/31/24 08:52 Dose: 50 mcg Documented By: ADÁN Ondansetron HCl (Ondansetron Odt 4 Mg Tab.Rapdis) 4 mg TRANSLINGU Q8H PRN PRN Reason: nausea and vomiting Pantoprazole Sodium (Pantoprazole Sodium 40 Mg/10 Ml Vial) 40 mg IVPUSH BID@0630,1630 [facility] Last Admin: 03/31/24 05:36 Dose: 40 mg Documented By: GUILLE Sodium Chloride (0.9 % Sodium Chloride Flush 3 Ml Syringe) 3 ml IVFLUSH QSHIFT [facility] Last Admin: 03/31/24 08:53 Dose: 3 ml Documented By: ADÁN Sucralfate (Sucralfate Oral Suspension 1 Gm/10 Ml Oral.Susp) 1 gm PO BID [facility] Last Admin: 03/31/24 08:53 Dose: 1 gm Documented By: ADÁN Labs 03/31/24 07:24 03/31/24 07:24 Labs: Laboratory Results - last 24 hr 03/30/24 03/30/24 03/31/24 13:48 14:40 07:24 MCV 93.4 92.3 MCH 29.3 29.1 MCHC 31.4 31.5 RDW 20.4 H 18.8 H Plt Count 366 D 359 MPV 9.3 L 9.2 L Immature Gran % (Auto) 0.8 H 0.7 H Neut % (Auto) 66.6 69.0 Lymph % (Auto) 21.7 16.0 L Cooke % (Auto) 9.7 12.3 H Eos % (Auto) 0.8 1.3 Baso % (Auto) 0.4 0.7 Lymph # (Auto) 1.7 1.1 L [place] # (Auto) 0.8 0.8 Eos # (Auto) 0.1 0.1 Baso # (Auto) 0.0 0.1 Abs Immat Gran (auto) 0.06 H 0.05 H Absolute Neuts (auto) 5.2 4.6 Absolute Nucleated RBC 0.040 H 0.020 H Nucleated RBC % (auto) 0.5 H 0.3 H PT 23.2 H INR 1.9 H APTT 31.3 Anion Gap 11 L 12 Estim Creat Clear Calc 143.7 143.7 Estimated GFR > 60 > 60 Random Glucose 128 H 102 Calcium 8.5 D 8.7 Magnesium 1.8 Iron 18 L TIBC 283 % Saturation 6 L Unsat Iron Binding 265 Ferritin 68 Total Bilirubin 0.3 Direct Bilirubin 0.1 AST 14 ALT 10 Alkaline Phosphatase 51 Total Protein 5.7 L Albumin 3.5 Blood Type O Positive Antibody Screen NEGATIVE Crossmatch See Detail Assessment and Plan (1) ABLA (acute blood loss anemia): Status: Acute (2) Acute upper gastrointestinal bleeding: Status: Acute Plan 48-year-old gentleman with past medical history significant for 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 Last edg/colo 03/24 showed avm's -NPO -daily H/H #Chronic vascular insufficiency of intestine -recent SMA/celiac artery stenting ([facility]) -hold blood thinners in setting of above #Cigarettes smoking -cessation counseling #HLD -statin dvt prophylaxis- scps full code pt requires inpt stay at least 2 midnights for management of acute gi bleeding with significant drop in hemoglobin requiring blood transfusion and close monitoring of blood counts with expert consultation Quality Stroke Does the patient have a stroke diagnosis?: No VTE Prior VTE?: No VTE Risk Level:: Medical - moderate - high VTE Device Contraindication: N/A - Device Ordered VTE Drug Contraindication: Treatment Not Indicated
[2024-03-31 14:13] LABS: INTERNATIONAL NORM RATIO 1.5 (0.9-1.1); Prothrombin Time 18.5 SEC (11.1-13.3)
[2024-03-31] MEDS: Warfarin Sodium 5 MG TABLET PO (14:29)
[2024-03-31] MEDS: Enoxaparin Sodium 80 MG/0.8 ML SYRINGE SUBCUT (17:42)
[2024-04-01 03:25] VITALS: BP 113/67; PULSE 67; RESP 18; TEMP 36.2; O2SAT 98
[2024-04-01] MEDS: Pantoprazole Sodium 40 MG/10 ML VIAL IVPUSH ×2 (05:55→17:27)
[2024-04-01 07:06] LABS: INTERNATIONAL NORM RATIO 1.5 (0.9-1.1); Prothrombin Time 18.4 SEC (11.1-13.3)
[2024-04-01 07:25] VITALS: BP 117/70; PULSE 76; RESP 18; TEMP 37.3; O2SAT 98
[2024-04-01 08:03] LABS: MANUAL DIFF FLAG NO
[2024-04-01 08:11] LABS: Basophils Absolute Auto 0.1 X10*3/uL (0.0-0.2); Basophils Percent Auto 0.9 % (0-2); Eosinophils Absolute Auto 0.1 X10*3/uL (0.0-0.4); Eosinophils Percent Auto 1.6 % (0-4); Hematocrit 27.9 % (42.0-52.0); Hemoglobin 8.7 g/dl (14.0-18.0); Imm Gran Abs Auto 0.04 X10*3/uL (0.00-0.03); Imm Gran Pct Auto 0.5 % (0.0-0.4); Lymphocytes Absolute Auto 1.6 X10*3/uL (1.2-4.9); Lymphocytes Percent Auto 21.4 % (20-40); Mean Corpuscular HGB Conc 31.2 g/dl (31.0-36.0); Mean Corpuscular Hemoglobin 28.9 pg (27.0-33.0); Mean Corpuscular Volume 92.7 fL (80.0-98.0); Mean Platelet Volume 9.6 fL (9.4-12.4); Monocytes Absolute Auto 0.9 X10*3/uL (0.1-1.2); Monocytes Percent Auto 11.5 % (2-11); Neutrophils Absolute Auto 4.9 x10*3/uL (2.0-8.3); Neutrophils Percent Auto 64.1 % (45-73); Platelet Count 383 X10*3/uL (160-400); Red Blood Count 3.01 X10*6/uL (4.60-5.80); Red Cell Distribution Width 18.6 % (11.0-16.0); White Blood Count 7.7 X10*3/uL (4.8-10.8)
[2024-04-01] MEDS: Octreotide Acetate 100 MCG/ML AMPUL 50 MCG SUBCUT ×3 (08:24→23:59)
[2024-04-01] MEDS: Sucralfate Oral Suspension 1 GM/10 ML ORAL.SUSP PO ×2 (08:24→21:57)
[2024-04-01] MEDS: Aspirin Enteric Coated 81 MG TABLET.DR PO (08:24)
[2024-04-01] MEDS: 0.9 % Sodium Chloride Flush 3 ML SYRINGE IVFLUSH ×3 (08:26→22:03)
[2024-04-01 11:17] VITALS: BP 136/73; PULSE 70; RESP 18; TEMP 36.8; O2SAT 100
[2024-04-01 16:00] VITALS: BP 134/63; PULSE 74; RESP 20; TEMP 37.2; O2SAT 99
--- NOTE | 2024-04-01 16:19 | HO.PM.IMPN ---
Subjective Subjective Date of Service: 04/02/24 Interval History: f/u on melana, acute blood loss anemia (ABLA) transfused 2 units on presentation with good effect, no report of bleeding today, H/H has been stable for 2 days in row, has been restarted on coumadin, brigding with lovenox and ASA, Plavix on hold. Physical Exam Vital Signs: Vital Signs: Last Vital Signs Temp 99.0 F 04/01/24 16:00 Pulse 74 04/01/24 16:00 Resp 20 04/01/24 16:00 BP 134/63 04/01/24 16:00 Pulse Ox 99 04/01/24 16:00 O2 Del Method Room Air 04/01/24 16:00 BMI result Body Mass Index 22.5 Objective Data Active Medications Acetaminophen (Acetaminophen 325 Mg Tablet) 650 mg PO Q6H PRN PRN Reason: Pain, Mild (Pain Scale 1-3), fever or headache Aspirin (Aspirin Enteric Coated 81 Mg Tablet.) 81 mg PO DAILY [facility] Last Admin: 04/01/24 08:24 Dose: 81 mg Documented By: VIJAY Calcium Carbonate (Calcium Carbonate 750 Mg Tab.Chew) 750 mg PO Q4H PRN PRN Reason: Heartburn Enoxaparin Sodium (Enoxaparin Sodium 80 Mg/0.8 Ml Syringe) 80 mg 1 mg/kg (80 mg) SUBCUT Q12H [facility] Last Admin: 04/01/24 05:52 Dose: Not Given Documented By: GUILLE Non-Admin Reason: Per Dr. Greer Magnesium Hydroxide (Milk Of Magnesia 30 Ml Oral.Susp) 30 ml PO DAILY PRN PRN Reason: Constipation Melatonin (Melatonin 3 Mg Tablet) 6 mg PO BEDTIME PRN PRN Reason: Insomnia Mesalamine (Mesalamine 250 Mg Capsule.Er) 1,500 mg PO DAILY [facility] Patient Own Med ( Cholecalciferol ( Vitamin D3) 1,250 Mcg (50,000 Unit) Capsule) 1,250 mcg PO FR [facility] Octreotide Acetate (Octreotide Acetate 100 Mcg/Ml Ampul) 50 mcg SUBCUT Q8H [facility] Last Admin: 04/01/24 08:24 Dose: 50 mcg Documented By: VIJAY Ondansetron HCl (Ondansetron Odt 4 Mg Tab.Rapdis) 4 mg TRANSLINGU Q8H PRN PRN Reason: nausea and vomiting Pantoprazole Sodium (Pantoprazole Sodium 40 Mg/10 Ml Vial) 40 mg IVPUSH BID@0630,1630 [facility] Last Admin: 04/01/24 05:55 Dose: 40 mg Documented By: GUILLE Sodium Chloride (0.9 % Sodium Chloride Flush 3 Ml Syringe) 3 ml IVFLUSH QSHIFT [facility] Last Admin: 04/01/24 08:26 Dose: 3 ml Documented By: VIJAY Sucralfate (Sucralfate Oral Suspension 1 Gm/10 Ml Oral.Susp) 1 gm PO BID [facility] Last Admin: 04/01/24 08:24 Dose: 1 gm Documented By: VIJAY Warfarin Sodium (Warfarin Sodium 7.5 Mg Tablet) 7.5 mg PO MoTh@1800 [facility] Warfarin Sodium (Warfarin Sodium 5 Mg Tablet) 5 mg PO SuTuWeFrSa@1800 [facility] Warfarin Sodium 6 mg/ Warfarin (Sodium 3 mg) 9 mg PO DAILY@1800 ONE Stop: 04/01/24 18:01 Labs 04/02/24 06:19 03/31/24 07:24 Labs: Laboratory Results - last 24 hr 04/01/24 05:51 MCV 92.7 MCH 28.9 MCHC 31.2 RDW 18.6 H Plt Count 383 MPV 9.6 Immature Gran % (Auto) 0.5 H Neut % (Auto) 64.1 Lymph % (Auto) 21.4 [place] % (Auto) 11.5 H Eos % (Auto) 1.6 Baso % (Auto) 0.9 Lymph # (Auto) 1.6 [place] # (Auto) 0.9 Eos # (Auto) 0.1 Baso # (Auto) 0.1 Abs Immat Gran (auto) 0.04 H Absolute Neuts (auto) 4.9 Absolute Nucleated RBC 0.000 Nucleated RBC % (auto) 0.0 Hold Purple Top SEE NOTE PT 18.4 H INR 1.5 H Assessment and Plan (1) ABLA (acute blood loss anemia): Status: Acute (2) Acute upper gastrointestinal bleeding: Status: Acute Plan 48-year-old gentleman with past medical history significant for 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 and recent celiac artery stenting ([facility] vascular) 02/2024 on coumadin with lovenox bridge/asa/plavix, history of hyperlipidemia, iron deficiency anemia, history of peptic ulcer disease, depression, internal hemorrhoids admitted for acute GI bleeding #UGIB and ABLA -H/H 5.8/18.5,--> 8.7/27.9after 2 units of RBC, IV iron -Back on ASA, plavix on hold, coumadin, lovenox (on bridge therapy), INR 1.5 today, coumadin adjusted, -I reached out to Vascular surgery at [facility] and advised to continue coumadin, lovenox, ASA, Plavix -IV ppi can be changed to PO - continue subcut octreotide -gi consult. Last edg/colo 03/24 showed avm's, no procedure planned and to resume anticoagulation #Chronic vascular insufficiency of intestine -recent SMA/celiac artery stenting ([facility]) -anticoagulation as above #Cigarettes smoking -cessation counseling #HLD -statin dvt prophylaxis- scps full code anemia Quality Stroke Does the patient have a stroke diagnosis?: No VTE Prior VTE?: No VTE Risk Level:: Medical - moderate - high VTE Device Contraindication: N/A - Device Ordered VTE Drug Contraindication: Treatment Not Indicated
[2024-04-01] MEDS: Clopidogrel Bisulfate 75 MG TABLET PO (17:28)
[2024-04-01 19:26] VITALS: BP 132/67; PULSE 69; RESP 20; TEMP 37.6; O2SAT 100
[2024-04-02] VITALS: BP 132/66; PULSE 75; RESP 16; TEMP 36.2; O2SAT 99
[2024-04-02 04:00] VITALS: BP 124/65; PULSE 74; RESP 16; TEMP 36.3; O2SAT 100
[2024-04-02] MEDS: Pantoprazole Sodium 40 MG/10 ML VIAL IVPUSH (05:42)
[2024-04-02 07:00] LABS: Hematocrit 29.3 % (42.0-52.0); Hemoglobin 9.3 g/dl (14.0-18.0); Mean Corpuscular HGB Conc 31.7 g/dl (31.0-36.0); Mean Corpuscular Hemoglobin 29.2 pg (27.0-33.0); Mean Corpuscular Volume 91.8 fL (80.0-98.0); Mean Platelet Volume 9.4 fL (9.4-12.4); Platelet Count 395 X10*3/uL (160-400); Red Blood Count 3.19 X10*6/uL (4.60-5.80); White Blood Count 8.5 X10*3/uL (4.8-10.8)
[2024-04-02 07:05] LABS: INTERNATIONAL NORM RATIO 1.7 (0.9-1.1)
[2024-04-02 07:42] VITALS: BP 127/69; PULSE 68; RESP 18; TEMP 37.6; O2SAT 97
[2024-04-02] MEDS: Octreotide Acetate 100 MCG/ML AMPUL 50 MCG SUBCUT (09:34)
[2024-04-02] MEDS: Clopidogrel Bisulfate 75 MG TABLET PO (09:34)
[2024-04-02] MEDS: Sucralfate Oral Suspension 1 GM/10 ML ORAL.SUSP PO (09:34)
[2024-04-02] MEDS: Aspirin Enteric Coated 81 MG TABLET.DR PO (09:35)
[2024-04-02] MEDS: 0.9 % Sodium Chloride Flush 3 ML SYRINGE IVFLUSH (10:27)
[2024-04-02 11:13] VITALS: BP 117/61; PULSE 70; RESP 18; TEMP 37.6; O2SAT 100
--- NOTE | 2024-04-02 11:23 | PM.DS ---
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 Per , hgb at [facility] was 6.4 today and was advised to come in. Per , vascular surgery recommending iron and blood transfusions. H/H on arrival 5.8/18.5%, was last 9.8/31.2% on 03/25 day of discharge. He is hemodynamically stable and is reporting black tarry stool ongoing x 2 weeks. Today having mild epigastric pain. No fevers, chills, nausea, vomiting, diarrhea, BRBPR, palpitations, sob, chest pain. He has had positional lightheadedness. Last admission, 03/22-03/25 with egd/colonoscopy on 03/24 showing AVMs. Recommendations from GI at the time included iron supplementation, ppi, and octreotide subcut. Has been restarted on blood thinners. CTA abd shows patent SMA stent, no acute abnormality. In the ED, given IVF adn iv pantoprazole. 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 Anticoagulation was stopped, and he was transfused with 2 units of RBCs with good effect, resulting in his hemoglobin trending up to 9.3 and hematocrit to 29.3. He was evaluated by a crossing gateman who advised subcutaneous octreotide and holding off on intervention. His last colonoscopy on March 24 noted AVMs. He was reinitiated on Coumadin, bridging with Lovenox; however, he has been refusing some of the injections. His INR is up to 1.7. I advised continuing the bridging until an INR of 2 is achieved. Further discussions with his vascular team led to the recommendation to continue Plavix, ASA, Coumadin, and subcutaneous octreotide. He has an appointment with coumadin clinic on Friday Final diagnoses: GI bleeding acute blood loss anemia chronic anticoagulatiopn Time Attestation Discharge Coordination Time (in mins): 40 Quality: Safe Use of Opioids Does Pt have an Active Cancer Diagnosis on the Problem List?: No Quality: Stroke Does the patient have a stroke diagnosis?: No Physical Exam Vital Signs: Vital Signs: Last Vital Signs Temp 99.6 F 04/02/24 11:13 Pulse 70 04/02/24 11:13 Resp 18 04/02/24 11:13 BP 117/61 04/02/24 11:13 Pulse Ox 100 04/02/24 11:13 O2 Del Method Room Air 04/02/24 11:13 BMI result Body Mass Index 22.5 Const: Other: General: AO X 3, no acute distress Resp: CTA bilateral CVS: S1,S2,RRR GI: +BS, NT, no distention Skin: No rash Neuro: motor grossly intact Psych: appropriate affect DS: Data Data Completed and Pending Completed studies during hospitalization [Text1]: Procedures Excision of Stomach, Pylorus, Via Natural or Artificial Opening Endoscopic, Diagnostic (03/22/24) Introduction of Mineral-based Topical Hemostatic Agent into Upper GI, Via Natural or Artificial Opening Endoscopic, [employer] 6 (03/22/24) Transfusion of Nonautologous Red Blood Cells into Peripheral Vein, Percutaneous Approach (03/22/24) Labs on day of discharge: Laboratory Results - last 24 hr 04/02/24 06:19 WBC 8.5 RBC 3.19 L Hgb 9.3 L Hct 29.3 L MCV 91.8 MCH 29.2 MCHC 31.7 RDW 18.0 H Plt Count 395 MPV 9.4 Absolute Nucleated RBC 0.000 Nucleated RBC % (auto) 0.0 PT 21.0 H INR 1.7 H Discharge Plan Discharge Anticipated Discharge Date/Time: 04/02/24 11:19 Patient Disposition: Home, Self-Care Discharge Diagnosis: Acute blood loss anemia, Referrals: gNoc Fung MD [Primary Care Provider] - 1 Week Discharge Medications: Continued aspirin 81 mg tablet,delayed release (DR/EC) 81 mg PO DAILY Qty: 90 1RF ondansetron 4 mg tablet,disintegrating 4 mg PO Q8H PRN (Reason: nausea and vomiting) Qty: 20 0RF cholecalciferol (vitamin D3) 1,250 mcg (50,000 unit) capsule 1,250 mcg PO FR warfarin 5 mg Tablet 7.5 mg PO MOTH Protocol: Dose Management Condition: Friday (Week One) Dose/Route: 5 mg Instruction: 1 x 5 mg tablet Condition: Friday Dose/Route: 7.5 mg Instruction: 1.5 x 5 mg tablets Condition: Friday Dose/Route: 5 mg Instruction: 1 x 5 mg tablet Condition: Friday Dose/Route: 5 mg Instruction: 1 x 5 mg tablet Condition: Dose/Route: 7.5 mg Instruction: 1.5 x 5 mg tablets Condition: Friday Dose/Route: 5 mg Instruction: 1 x 5 mg tablet Condition: Friday Dose/Route: 5 mg Instruction: 1 x 5 mg tablet Condition: Friday (Week Two) Dose/Route: 5 mg Instruction: 1 x 5 mg tablet Condition: Friday Dose/Route: 7.5 mg Instruction: 1.5 x 5 mg tablets Condition: Friday Dose/Route: 5 mg Instruction: 1 x 5 mg tablet Condition: Friday Dose/Route: 5 mg Instruction: 1 x 5 mg tablet Condition: Dose/Route: 7.5 mg Instruction: 1.5 x 5 mg tablets Condition: Friday Dose/Route: 5 mg Instruction: 1 x 5 mg tablet Condition: Friday Dose/Route: 5 mg Instruction: 1 x 5 mg tablet Protocol Text: Adjustment Start Date: Friday03/29/24 INR Value: 1.8 INR Date: 03/29/24 Recheck Date: 04/05/24 pantoprazole 40 mg tablet,delayed release (DR/EC) 40 mg PO DAILY@0630 sucralfate [Carafate] 100 mg/mL suspension 10 ml PO BID mesalamine [Apriso] 0.375 gram capsule,extended release 24hr 1.5 g PO DAILY ferrous sulfate 324 mg (65 mg iron) tablet,delayed release (DR/EC) 324 mg PO DAILY Qty: 30 0RF diclofenac sodium 1 % gel 2 g topical QID PRN (Reason: elbow pain ) Qty: 100 0RF Rx Instructions: apply to single elbow, wrist or hand; for hand includes palm/fingers/back of hand clopidogrel 75 mg tablet 75 mg PO DAILY warfarin 5 mg tablet 5 mg PO SUTUWEFRSA Protocol: Dose Management Condition: Friday (Week One) Dose/Route: 5 mg Instruction: 1 x 5 mg tablet Condition: Friday Dose/Route: 7.5 mg Instruction: 1.5 x 5 mg tablets Condition: Friday Dose/Route: 5 mg Instruction: 1 x 5 mg tablet Condition: Friday Dose/Route: 5 mg Instruction: 1 x 5 mg tablet Condition: Dose/Route: 7.5 mg Instruction: 1.5 x 5 mg tablets Condition: Friday Dose/Route: 5 mg Instruction: 1 x 5 mg tablet Condition: Friday Dose/Route: 5 mg Instruction: 1 x 5 mg tablet Condition: Friday (Week Two) Dose/Route: 5 mg Instruction: 1 x 5 mg tablet Condition: Friday Dose/Route: 7.5 mg Instruction: 1.5 x 5 mg tablets Condition: Friday Dose/Route: 5 mg Instruction: 1 x 5 mg tablet Condition: Friday Dose/Route: 5 mg Instruction: 1 x 5 mg tablet Condition: Dose/Route: 7.5 mg Instruction: 1.5 x 5 mg tablets Condition: Friday Dose/Route: 5 mg Instruction: 1 x 5 mg tablet Condition: Friday Dose/Route: 5 mg Instruction: 1 x 5 mg tablet Protocol Text: Adjustment Start Date: Friday03/29/24 INR Value: 1.8 INR Date: 03/29/24 Recheck Date: 04/05/24 Diet: Advance to usual diet Activity on Discharge: As tolerated Stand Alone Forms: Patient Portal Discharge page Print Language: [place] Care Plan Goals: resolution of anemia, and gi bleeding and succesfull blood thining without bleeding complications Health Concerns: Acute blood loss anemia Plan of Treatment: resume all your medication as before including aspirinm, plavix, coumadin and octreotid Assessment: see above
[2024-04-02] MEDS: Enoxaparin Sodium 80 MG/0.8 ML SYRINGE SUBCUT (11:57)
--- NOTE | 2024-04-02 15:14 | MHC.CM.PN ---
Pt is medically cleared for discharge home self-care.
== END 2024-04-02 16:43 | disposition home or self-care (01) | DRG 253 ==
LOC: HO.ED 14:31 → HO.EDOVER 15:37 → HO.IMC 19:35
PROVIDERS: Physician Assistant; Admitting Provider Physician Assistant; Emergency Provider Student in an Organized Health Care Education/Training Program; PCP Internal Medicine; Visit Provider Internal Medicine
DX: K55.21 Angiodysplasia of colon with hemorrhage (principal); K55.1 Chronic vascular disorders of intestine; I25.10 Atherosclerotic heart disease of native coronary artery without angina pectoris; D62 Acute posthemorrhagic anemia; E86.0 Dehydration; E78.5 Hyperlipidemia, unspecified; Z91.148 Patient's other noncompliance with medication regimen for other reason; Z87.891 Personal history of nicotine dependence; Z79.01 Long term (current) use of anticoagulants; Z79.02 Long term (current) use of antithrombotics/antiplatelets; Z79.82 Long term (current) use of aspirin; Z79.899 Other long term (current) drug therapy
CPT/HCPCS: 36415; 80048; 80076; 82728; 83540; 83735; 85025; 85027; 85610; 85730; 86850; 86900; 86901; 86923; 93005; 99285; J1650; J1756; J2354; J2470; P9016

== ENCOUNTER → 2024-03-30 13:08 | Outpatient (BNV) | payer OTHER, SELFPAY | PROVIDERS: Admitting Provider Physician Assistant; Emergency Provider Student in an Organized Health Care Education/Training Program; PCP Internal Medicine; Visit Provider Internal Medicine Cardiovascular Disease | DX: R53.1 Weakness (principal); K92.2 Gastrointestinal hemorrhage, unspecified | CPT/HCPCS: 93010 ==

== ENCOUNTER → 2024-03-30 15:36 | Outpatient (BNV) | payer OTHER, SELFPAY | PROVIDERS: Admitting Provider Physician Assistant; Emergency Provider Student in an Organized Health Care Education/Training Program; PCP Internal Medicine; Visit Provider Internal Medicine Gastroenterology | DX: D62 Acute posthemorrhagic anemia (principal) | CPT/HCPCS: 99222 ==

== ENCOUNTER → 2024-03-30 15:36 | Outpatient (BNV) | payer OTHER, SELFPAY | PROVIDERS: Admitting Provider Physician Assistant; Emergency Provider Student in an Organized Health Care Education/Training Program; PCP Internal Medicine; Visit Provider Physician Assistant | DX: D62 Acute posthemorrhagic anemia (principal); K92.2 Gastrointestinal hemorrhage, unspecified | CPT/HCPCS: 99223; 99232; 99239 ==

== ENCOUNTER 2024-04-03 08:58 | Outpatient (REF) | payer OTHER, SELFPAY ==
[2024-04-03 09:14] LABS: MANUAL DIFF FLAG NO
[2024-04-03 09:42] LABS: Basophils Percent Auto 0.3 % (0-2); Eosinophils Absolute Auto 0.1 X10*3/uL (0.0-0.4); Hemoglobin 8.7 g/dl (14.0-18.0); Imm Gran Abs Auto 0.07 X10*3/uL (0.00-0.03); Imm Gran Pct Auto 0.7 % (0.0-0.4); Lymphocytes Absolute Auto 1.9 X10*3/uL (1.2-4.9); Lymphocytes Percent Auto 19.1 % (20-40); Mean Corpuscular HGB Conc 31.1 g/dl (31.0-36.0); Mean Corpuscular Hemoglobin 29.1 pg (27.0-33.0); Mean Corpuscular Volume 93.6 fL (80.0-98.0); Mean Platelet Volume 9.6 fL (9.4-12.4); Monocytes Absolute Auto 0.9 X10*3/uL (0.1-1.2); Monocytes Percent Auto 9.2 % (2-11); Neutrophils Absolute Auto 6.7 x10*3/uL (2.0-8.3); Neutrophils Percent Auto 69.7 % (45-73); Platelet Count 414 X10*3/uL (160-400); Red Blood Count 2.99 X10*6/uL (4.60-5.80); Red Cell Distribution Width 18.3 % (11.0-16.0); White Blood Count 9.7 X10*3/uL (4.8-10.8)
[2024-04-03 09:48] LABS: INTERNATIONAL NORM RATIO 2.8 (0.9-1.1); Prothrombin Time 34.7 SEC (11.1-13.3)
== END 2024-04-03 08:59 | disposition home or self-care (01) ==
LOC: HO.LAB 08:58
PROVIDERS: Absent Provider Internal Medicine; PCP Internal Medicine; Visit Provider Internal Medicine
DX: K92.2 Gastrointestinal hemorrhage, unspecified (principal); D50.9 Iron deficiency anemia, unspecified; K52.9 Noninfective gastroenteritis and colitis, unspecified; D62 Acute posthemorrhagic anemia; E86.0 Dehydration; K55.069 Acute infarction of intestine, part and extent unspecified
CPT/HCPCS: 36415; 83735; 85025; 85610

== ENCOUNTER 2024-04-05 10:10 | Outpatient (AMB) | payer OTHER, SELFPAY ==
--- NOTE | 2024-04-05 10:11 | MHC.PC.OV ---
Vital Signs 04/05/24 10:20 Height 6 ft Weight 164 lb BMI 22.2 BP 126/68 Blood Pressure Location Lt brachial Position Sitting Pulse 99 Pulse Source Pulse Oximeter Pulse Oximetry (%) 99 Oxygen Delivery Method Room Air Intake Visit Reasons: HDF ~ Post hospital discharge FU Intake Note: Pt is here today for HDF Allergies No Known Allergies Allergy (Verified 04/07/24 10:57) Medication List - Last Reconciled 04/05/24 by Ngoc Fung MD aspirin 81 mg PO DAILY cholecalciferol (vitamin D3) 1,250 mcg PO FR clopidogrel 75 mg PO DAILY diclofenac sodium 1% 2 grams topical QID PRN enoxaparin 80 mg subcut BID ferrous sulfate 324 mg PO DAILY mesalamine ER (Apriso) 1.5 grams PO DAILY octreotide acetate mcg subcut BID ondansetron 4 mg PO Q8H PRN pantoprazole 40 mg PO DAILY@0630 sucralfate (Carafate) 10 mL PO BID warfarin 7.5 mg See Protocol PO MOTH Tobacco use date assessed: 04/05/24 Dental Screening Dental Screen Date: 04/05/24 Did you have a dental visit in the last 12 months?: No Did you have a dental problem in the last 6 months where you did not have access to dental care?: No Was dental information given to patient?: Patient has dentist HPI HDF ~ Post hospital discharge FU HPI Details 48 year old male with a past medical history of chronic GERD, hyperlipidemia, peptic ulcer disease, hemorrhoids, depression, former cigarette smoker, with 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 With hemoglobin at [facility] at 6.4. His hemoglobin hematocrit on arrival to ER was 5.8/18.5%, he reports has black tarry stool ongoing x 2 weeks, accompanied by mild epigastric pain , shortness of breath on exertion and positional lightheadedness. During admission anticoagulant was stopped and transfused 2 units of packed RBC with hemoglobin/ hematocrit going up to 9.3/29.3. He was evaluated by a foot gatherer who advised subcutaneous octreotide and holding off on intervention. His last colonoscopy on March 24 noted AVMs. He was reinitiated on Coumadin, bridging with Lovenox, and to continuing the bridging until an INR of 2 is achieved. Further discussions with his vascular team led to the recommendation to continue Plavix, ASA, Coumadin, and subcutaneous octreotide. He has an appointment with coumadin clinic later today. He had a repeat CBC the day after his discharge which was 04/03/2024, which showed his hemoglobin hematocrit dropping again. Patient states that he has black stools, unsure whether this was from an active bleed or from his iron supplements. However he still complains of shortness of breath on mild exertion, positional lightheadedness but no chest pain reported. s 04/02/24 04/03/24 06:19 09:09 Hgb 9.3 L 8.7 L Hct 29.3 L 28.0 L PFS Medical History (Updated 04/09/24 @ 17:24 by Ngoc Fung MD) AVM (arteriovenous malformation) of duodenum, acquired with hemorrhage Vitamin D deficiency Mesenteric artery thrombosis CAD (coronary artery disease) Hyperlipidemia Superior mesenteric artery stenosis Celiac artery stenosis Vaccine refused by patient (~09/05/23) Cigar smoker unmotivated to quit Chronic vascular insufficiency of intestine Impaired fasting glucose Diarrhea Granular cell tumor Chronic GERD Surgical History H/O heart artery stent History of esophagogastroduodenoscopy (EGD) Hx of colectomy Hx of appendectomy Hx of colonoscopy Family History Maternal Aunt No problems noted. Maternal Aunt No problems noted. Social History Household Members: Spouse Housing: Apartment Do you presently have visiting nurse or other home services: No Alcohol intake: former Patient Tobacco Use Status: Former Tobacco user Tobacco use type: Cigar Years Smoked: 3 e-Cigarette/Vaping Use: Never Used Substance Use Type: Marijuana service: No Current occupational status: employed Current occupational exposures/hazards: No Cognitive needs: No Hearing needs: No Vision needs: No Questionnaire PHQ-9 Over the last 2 weeks, how often have you been bothered by any of the following problems? 1. Little interest or pleasure in doing things: nearly every day 2. Feeling down, depressed, or hopeless: nearly every day 3. Trouble falling or staying asleep, or sleeping too much: more than half the days 4. Feeling tired or having little energy: nearly every day 5. Poor appetite or overeating: nearly every day 6. Feeling bad about yourself - or that you are a failure or have let yourself or your family down: nearly every day 7. Trouble concentrating on things, such as reading the newspaper or watching television: nearly every day 8. Moving or speaking so slowly that other people could have noticed. Or the opposite - being so fidgety or restless that you have been moving around a lot more than usual: nearly every day 9. Thoughts that you would be better off or of hurting yourself in some way: nearly every day Total score: 26 Depression Screening Interpretation: Positive (Worried about his health, does not want to start medication) Depression Screening Done: Yes Source: Developed by Drs. Greg Hernandez, Whitley Prak, Dustin Ann and colleagues, with an educational hans from [employer]. Thrive Questionnaire Date Thrive assessed: 03/31/24 I am a: Patient What is your living situation today?: I choose not to answer this question Within the past 12 months, did the food you bought not last and you didn't have the money to get more?: I choose not to answer this question Within the past 12 months, did you worry whether your food would run out before you got money to buy more?: I choose not to answer this question Do you have trouble paying for medicines?: No Do you have trouble getting transportation to medical appointments?: No Do you have trouble paying your heating and electricity bill?: I choose not to answer this question Do you have trouble taking care of your child, family member or friend?: I choose not to answer this question Do you have trouble with day-to-day activities such as bathing, preparing meals, shopping, managing finances, etc.?: I choose not to answer this question Are you currently unemployed and looking for a job?: I choose not to answer this question Are you interested in more education?: No Please select the resources that you would like help with: Housing/[facility] Currently or been in a relationship where the following occur: I choose not to answer THRIVE Score: 0 AUDIT C Alcohol Use Questionnaire (AUDIT-C) 1. How often do you have a drink containing alcohol?: Never Total Score: 0 KAMILA-7 AMB Questionnaire KAMILA-7 Date KAMILA - 7 assessed: 11/28/23 Feeling nervous, anxious, or on edge: 0 = Not at all Not being able to stop or control worryin = Nearly every day Worrying too much about different things: 3 = Nearly every day Trouble relaxin = Nearly every day Being so restless that it is hard to sit still: 3 = Nearly every day Becoming easily annoyed or irritable: 3 = Nearly every day Feeling afraid as if something awful might happen: 2 = More than half the days Total KAMILA-7 score (0-4 normal; 5-9 mild; 10-14 moderate; 15-21 severe): 17 Source: Developed by Drs. Greg Hernandez, Whitley [place], Dustin Ann and colleagues, with an educational hans from [employer]. Review of Systems Const Denies body aches, Denies chills, Reports fatigue, Denies fever(s), Denies headache(s), Reports malaise, Reports poor appetite and Reports weakness Eyes Reports no additional complaints ENT Denies dysphagia, Denies headache(s), Denies mouth pain, Denies nasal congestion, Denies post nasal drip and Denies throat swelling Card Reports as per HPI, Denies chest pain and Denies irregular heart rhythm Resp Reports as per HPI, Denies cough and Denies wheezing GI Denies melena, Denies bloating, Denies hematochezia, Denies constipation, Denies dysphagia, Denies excessive flatus, Denies early satiety, Reports heartburn and Denies diarrhea Reports no additional complaints Musc Reports no additional complaints Neuro Reports no additional complaints, Reports as per HPI, Denies headache(s) and Reports weakness Psych Reports as per HPI Endo Reports fatigue Yared/Lymph Reports as per HPI Aller/Immun Denies throat swelling and Denies wheezing Physical exam (Primary Care) Vital Signs: Last Vital Signs Pulse 99 04/05/24 10:20 BP 126/68 04/05/24 10:20 Pulse Ox 99 04/05/24 10:20 Oxygen Delivery Method Room Air 04/05/24 10:20 BMI result Body Mass Index 22.2 Tobacco/Smoking Status: Tobacco use Status Tobacco use date assessed 04/05/24 04/05/24 10:26 Patient Tobacco Use Status Former Tobacco user 04/05/24 10:11 Tobacco use type Cigar 04/05/24 10:11 e-Cigarette/Vaping Use Never Used 04/05/24 10:11 PHQ-9: PHQ-9 Score PHQ-9: Total score 26 04/05/24 11:05 Depression Screening Interpretation: Positive (Worried about his health, does not want to start medication) Thrive Assessment: Date of Thrive Assessment Date Thrive assessed 03/31/24 04/05/24 10:11 Currently or been in a relationship where the following occur: I choose not to answer Const General: comfortable and no acute distress Orientation/consciousness: patient oriented x3 [facility] General nose exam: Normal external nose present Face and sinus: Yes face symmetric Mouth: Normal oral and palatal mucosa present, oropharynx normal and moist mucous membranes Eyes General: appearance normal, both eyes and all related structures Periorbital: periorbital findings normal Conjunctivae: conjunctival abnormal (Pain palpebral conjunctivae bilateral) Sclerae: sclerae normal Pupils: Equal, round and reactive pupils present EOM: EOMs intact bilaterally Neck Neck: Yes full ROM, Yes no lymphadenopathy and Yes supple Chest Chest palpation & inspection: normal inspection of the chest Resp Auscultation: clear to auscultation bilaterally Cardio Rate: regular rate Rhythm: regular rhythm Heart sounds: S1 normal heart sound present and S2 normal heart sound present GI Palpation (GI): Soft to palpation, nontender, no guarding and no masses Auscultation: normal bowel sounds Back/Spine/Pelvis Back: No back tenderness Skin General skin exam: no rashes or lesions noted Neuro General: patient oriented x3, gait normal, tone normal, moves all extremities, Normal light touch and pain sensation, no focal motor deficits and CN's II-XI intact bilaterally Cranial nerves: Yes Equal, round and reactive pupils present Extrem General: Yes full ROM, Yes no joint enlargement, Yes no clubbing, cyanosis or edema, Yes no calf tenderness and Yes normal gait Psych Appearance: grossly normal and well kempt Mental Status: mental status grossly normal Speech and movement: Normal speech and movement present Affect: normal affect Attitude: cooperative Thought process: Normal thought process present Thought content: Normal thought content present Results Reviewed Results Reviewed: Laboratory Tests 04/02/24 04/03/24 06:19 09:09 WBC 8.5 9.7 RBC 3.19 L 2.99 L Hgb 9.3 L 8.7 L Hct 29.3 L 28.0 L RDW 18.0 H 18.3 H Plt Count 395 414 H PT 21.0 H 34.7 H D INR 1.7 H 2.8 H Assessment and Plan Assessment & Plan (1) Mesenteric artery thrombosis: Code(s): K55.069 - Acute infarction of intestine, part and extent unspecified Plan: Continued on warfarin bridged with Lovenox referral to Hematology for further evaluation management (2) ABLA (acute blood loss anemia): Code(s): D62 - Acute posthemorrhagic anemia Plan: Continue with ferrous sulfate 325 mg daily. Hemoglobin hematocrit again trending downward, repeat CBC ordered, hematology consult ordered. Patient advised that if he continues to feel worse, with worsening lightheadedness, shortness of breath, to go to the ER to be checked for further blood loss. (3) Current use of anticoagulant therapy: Code(s): Z79.01 - snf (current) use of anticoagulants Plan: Currently on Coumadin, bridging with Lovenox to achieve an INR of 2-3. Has an appointment later today to Coumadin clinic at [place] Orders: Orders Complete Blood Count Auto Diff 04/05/24 D62 - Acute posthemorrhagic anemia, D64.9 - Anemia, unspecified Referrals Hematology & Oncology Referral D50.9 - Iron deficiency anemia, unspecified, K55.069 - Acute infarction of intestine, part and extent unspecified Coding Level of Care Code Est Pt Level 4 (58293) Complex EM visit Add On G2211 Diagnoses Mesenteric artery thrombosis K55.069 ABLA (acute blood loss anemia) D62 Current use of anticoagulant therapy Z79.01
[2024-04-05 10:20] VITALS: BP 126/68; PULSE 99; O2SAT 99; BMI 22.2
== END 2024-04-05 12:26 | disposition home or self-care (01) ==
PROVIDERS: PCP Internal Medicine; Visit Provider Internal Medicine
DX: K55.069 Acute infarction of intestine, part and extent unspecified (principal); D62 Acute posthemorrhagic anemia; Z79.01 Long term (current) use of anticoagulants
CPT/HCPCS: 99214; G2211

== ENCOUNTER 2024-04-05 11:03 | Outpatient (REF) | payer OTHER, SELFPAY ==
[2024-04-05 13:10] LABS: MANUAL DIFF FLAG NO
[2024-04-05 13:26] LABS: Basophils Absolute Auto 0.1 X10*3/uL (0.0-0.2); Basophils Percent Auto 0.6 % (0-2); Eosinophils Absolute Auto 0.1 X10*3/uL (0.0-0.4); Eosinophils Percent Auto 1.1 % (0-4); Hematocrit 24.1 % (42.0-52.0); Hemoglobin 7.4 g/dl (14.0-18.0); Imm Gran Abs Auto 0.05 X10*3/uL (0.00-0.03); Imm Gran Pct Auto 0.6 % (0.0-0.4); Lymphocytes Absolute Auto 1.6 X10*3/uL (1.2-4.9); Lymphocytes Percent Auto 19.8 % (20-40); Mean Corpuscular HGB Conc 30.7 g/dl (31.0-36.0); Mean Corpuscular Hemoglobin 28.6 pg (27.0-33.0); Mean Corpuscular Volume 93.1 fL (80.0-98.0); Mean Platelet Volume 9.6 fL (9.4-12.4); Monocytes Absolute Auto 1.1 X10*3/uL (0.1-1.2); Monocytes Percent Auto 13.7 % (2-11); Neutrophils Absolute Auto 5.2 x10*3/uL (2.0-8.3); Neutrophils Percent Auto 64.2 % (45-73); Platelet Count 434 X10*3/uL (160-400); Red Blood Count 2.59 X10*6/uL (4.60-5.80); Red Cell Distribution Width 17.8 % (11.0-16.0); White Blood Count 8.2 X10*3/uL (4.8-10.8)
== END 2024-04-05 11:04 | disposition home or self-care (01) ==
LOC: HO.HMGCLDS 11:03
PROVIDERS: PCP Internal Medicine; Visit Provider Internal Medicine
DX: K55.1 Chronic vascular disorders of intestine (principal); Z51.81 Encounter for therapeutic drug level monitoring; Z79.01 Long term (current) use of anticoagulants; D62 Acute posthemorrhagic anemia; D64.9 Anemia, unspecified
CPT/HCPCS: 36415; 85025; 85610; 99211

== ENCOUNTER 2024-04-05 11:57 | Outpatient (AMB) | payer OTHER, SELFPAY ==
[2024-04-05 12:05] LABS: Prothrombin Time Whole Bld POC 29.6 sec (11.1-13.5); ~PT, ~INR - Anti Coag Clinic 2.5 (0.9-1.1)
--- NOTE | 2024-04-05 15:29 | MHC.OFFVISCO ---
Intake Intake Visit Reasons: Anticoagulation Allergies No Known Allergies Allergy (Verified 04/05/24 10:37) Medication List - Last Reconciled 04/05/24 by Nolvia Trinidad RN aspirin 81 mg PO DAILY cholecalciferol (vitamin D3) 1,250 mcg PO FR clopidogrel 75 mg PO DAILY diclofenac sodium 1% 2 grams topical QID PRN ferrous sulfate 324 mg PO DAILY mesalamine ER (Apriso) 1.5 grams PO DAILY octreotide acetate mcg subcut BID ondansetron 4 mg PO Q8H PRN pantoprazole 40 mg PO DAILY@0630 sucralfate (Carafate) 10 mL PO BID warfarin 7.5 mg See Protocol PO MOTH Nursing Note INR: 2.4 in therapeutic range Medications and supplements reviewed Pt saw md today and had repeat H+H today and is low, states his stools are still black, he is taking the octreotide as Md ordered and his other meds his mds are aware and may order him an Iron infusion Denies any signs and symptoms of bleeding or bruising or clotting. Bleeding, bruising, clotting discussed Nutritional guidance given Dose: 5mg today then maybe 7.5mg e ur sat 5mg all other days F/U INR: tomorrow if here or wed Patient verbalizes understanding of instructions given Anti-Coag Initial Assessment Social Hx Patient Tobacco Use Status: Former Tobacco user Tobacco use type: Cigar alcohol intake: former Alcohol intake frequency: does not drink Cardiovascular Hx: HTN, Angina, NC (PRE-NC AGE 28) and Varicose Veins (SPIDER VEINS ) Lung Disease HX: DVT/PE (MESENTERIC MULTIPLE CLOTS) Musculoskeletal Hx: Arthritis Blood Disorder Hx: Anemia GI Hx: Bleeding (GI, rectal) Neurological Hx: Serious Head Injury ( A CHILD HEAD INJURY REQUIRUIRING SURGERY ) Cancer HX: No (FAMILY HX ) Psych. Illness/Depression: No Coding Level of Care Code Est Patient Level 1 Diagnoses Current use of anticoagulant therapy Z79.01 Assessment & Plan Assessment & Plan (1) Current use of anticoagulant therapy: Code(s): Z79.01 - halfway (current) use of anticoagulants Category: Medical
== END 2024-04-05 15:33 | disposition home or self-care (01) ==
LOC: HO.ACS 11:57
PROVIDERS: PCP Internal Medicine; Visit Provider Internal Medicine
DX: Z79.01 Long term (current) use of anticoagulants (principal)

== ENCOUNTER 2024-04-07 10:49 | Inpatient (IN) | payer OTHER, SELFPAY ==
[2024-04-07] VITALS (10 sets, daily range): BP systolic 109–131; BP diastolic 57–77; PULSE 73–87; RESP 14–18; TEMP 36.1–37.2; O2SAT 100; BMI 21.9; BMI 23.0
--- NOTE | ~2024-04-07 | NM_ITS ---
Examination: Nuclear medicine GI bleeding scan. CLINICAL INDICATION: Anemia/GI bleed. Black stools. COMPARISON: None. TECHNIQUE: Following labeling of red blood cells with 25 mCi of 99m technetium pertechnetate, dynamic imaging up to 1 minute followed by static images up to 60 minutes over the abdomen were obtained. FINDINGS: There is no abnormal extra-axial activity seen in the abdomen on dynamic and static images up to 60 minutes. Normal activity seen within the vascular structures. NM/NM GI bleeding IMPRESSION: No extravasation of isotope seen to suspect any site of GI bleed
--- NOTE | 2024-04-07 11:34 | ED_ITS ---
HPI - General Adult General Chief complaint: General Medical Stated complaint: Black stool Time Seen by Provider: 04/07/24 11:08 Source: patient, family, RN notes reviewed and old records reviewed Mode of arrival: ambulatory Limitations: no limitations History of Present Illness ED Provider: Eleanor Jones PA-C HPI narrative: 48-year-old male with PMH significant for mesenteric ischemia s/p SMA and celiac arterty stenting complicated by thrombosis with rand hemicolectomy and recent celiac artery stenting ([facility] vascular) 02/2024 on coumadin with lovenox bridge/asa/plavix, history of hyperlipidemia, iron deficiency anemia, history of peptic ulcer disease, 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 Patient was admitted 03/30-04/02 for UGIB requiring 3 units of PRBC and IV iron transfusions. EGD 03/24 showed distal duodenum with oozing c/w AVM. A repeat EGD was not performed. He was started on octreotide 100 mcg BID. His Coumadin was stopped for 2 days. His hemoglobin responded well to transfusion. He was started on Coumadin with a Lovenox bridge and discharged home. He has been having black stools since. He is on iron. He states the stools are sometimes soft and tarry, other times more firm. He had 3 BMs yesterday. None today. No hemaemesis. No BRBPR. He reports generalized weakness and an episode of chest pain last night. None currently. He is more fatigued and has some BARILLAS. He denies any abdominal pain, nausea, or vomiting. MD complaint: black stools, weakness Onset (ago): day(s) Relieving factors: rest Exacerbating factors: movement Associated symptoms: chest pain, loss of appetite, malaise, nausea/vomiting, shortness of breath and weakness Treatments prior to arrival: none Related Data Home Medications ?Medication ?Instructions ?Recorded ?Confirmed clopidogrel 75 mg tablet 75 mg PO DAILY 03/12/24 04/05/24 cholecalciferol (vitamin D3) 1,250 1,250 mcg PO FR 03/22/24 04/05/24 mcg (50,000 unit) capsule pantoprazole 40 mg tablet,delayed 40 mg PO DAILY@0630 03/22/24 04/05/24 release sucralfate 100 mg/mL oral 10 ml PO BID 03/22/24 04/05/24 suspension (Carafate) warfarin 5 mg tablet 7.5 mg PO MOTH 03/22/24 04/05/24 mesalamine 0.375 gram 1.5 g PO DAILY 03/30/24 04/05/24 capsule,extended release 24 hr (Apriso) octreotide acetate 100 mcg/mL (1 mcg subcut BID 04/05/24 04/05/24 mL) injection syringe Previous Rx's ?Medication ?Instructions ?Recorded ondansetron 4 mg disintegrating 4 mg PO Q8H PRN nausea and 01/30/24 tablet vomiting #20 tabs aspirin 81 mg tablet,delayed 81 mg PO DAILY #90 tabs 02/18/24 release ferrous sulfate 324 mg (65 mg 324 mg PO DAILY #30 tabs 03/09/24 iron) tablet,delayed release Allergies Allergy/AdvReac Type Severity Reaction Status Date / Time No Known Allergies Allergy Verified 04/07/24 10:57 Review of Systems 2 Review of Systems: Yes all other systems are reviewed and are negative [facility] Past Medical History Medical History Anemia Vitamin D deficiency Mesenteric artery thrombosis CAD (coronary artery disease) Hyperlipidemia Iron deficiency anemia 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 Maternal Aunt No problems noted. Social History Social History Household Members: Spouse Housing: Apartment Do you presently have visiting nurse or other home services: No Alcohol intake: former Patient Tobacco Use Status: Former Tobacco user Tobacco use type: Cigar Cigarettes Per Day: 1 Years Smoked: 3 Smoked in Last 30 Days: Yes e-Cigarette/Vaping Use: Never Used Use of substances other than those prescribed or required for medical reasons: No Substance Use Type: Marijuana Advance Directives: No Advance Directives Information Provided: Yes Do you have a plan to hurt others: No Plan service: No Current occupational status: employed Current occupational exposures/hazards: No Cognitive needs: No Hearing needs: No Vision needs: No Physical Exam ED Vital Signs: Vital Signs - 24 hr 04/07/24 10:55 04/07/24 14:23 04/07/24 15:06 Temperature 98.2 F 98.1 F 98.1 F Pulse Rate 87 87 86 Respiratory Rate 18 18 14 Blood Pressure 131/76 117/58 L 131/64 Pulse Oximetry 100 100 Oxygen Delivery Method Room Air 04/07/24 15:22 Temperature 98.6 F Pulse Rate 82 Respiratory Rate 16 Blood Pressure 124/68 Pulse Oximetry Oxygen Delivery Method BMI result Body Mass Index 21.9 Appearance: Alert. Oriented X3. No acute distress. Pale Head: normocephalic, atraumatic. Eyes: Pupils equal, round and reactive to light. Conjunctival pallor ENT: Pharynx normal. No tonsillar swelling or exudate. Neck: Normal inspection. Neck supple. CVS: Normal heart rate and rhythm. Pulses normal. Respiratory: No respiratory distress. Breath sounds normal. Abdomen: Well healed longitudinal surgical scar. ecchymosis on lower abd. Soft and nontender. +BS x4 DENG: normal external inspection, normal tone, nonbleeding internal hemorrhoid, no stool in rectal vault Skin: Skin warm and dry. Normal skin color. Normal skin turgor. No rashes. Extremities: No lower extremity edema. No joint swelling. Neuro/psych: Oriented X 3. No motor deficit. No sensory deficit. CN II-XII intact. Normal speech and cognition. Course Reevaluation(s) Reevaluation #1: Spoke w/ Vascular office at [facility], awaiting [facility] call back for recs, ?accepting for transfer Time: 13:07 Medications Administered Discontinued Medications Generic Name Dose Route Start Last Admin Trade Name Freq PRN Reason Stop Dose Admin Sodium Chloride 100 mls @ 100 mls/hr 04/07/24 12:52 04/07/24 15:07 Ns IV 04/07/24 13:51 100 mls/hr ONCE ONE Administration Pantoprazole Sodium 40 mg 04/07/24 11:08 04/07/24 12:47 Pantoprazole Sodium 40 Mg/10 Ml Vial IVPUSH 04/07/24 11:09 40 mg ONCE ONE Administration Medical Decision Making Medical Decision Making MDM Narrative: 48-year-old male with PMH significant for mesenteric ischemia s/p SMA and celiac arterty stenting complicated by thrombosis with rand hemicolectomy and recent celiac artery stenting ([facility] vascular) 02/2024 on coumadin with lovenox bridge/asa/plavix, history of hyperlipidemia, iron deficiency anemia, history of peptic ulcer disease, 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 Patient is pale on arrival to the ER. He denies any abdominal pain or vomiting. He states when he had his stent occluded he had significant abdominal pain and vomiting at the time. Lower suspicion for this. He does have history of duodenal AVMs with high risk of rebleeding, this is most likely the etiology of his slow upper GI bleed. His anemia has been worsening since discharge. His INR on the was 2.8. His vascular surgeon at [facility] told him to stop his Plavix yesterday. He accidentally took it this morning. Has an appointment with them on Friday morning. Patient's H/H today 5.4/17.6 from 7./.12 days ago. His INR is 2.4. DENG with no stool in the rectal vault, no melena. No concern for active GI bleeding. Will hold off on a GI bleed scan for now. Dr. Garduno from GI was consulted. EMS was called for possible transfer as his vascular surgeon is there. They were discussing doing a possible bypass operation on him. Spoke again with vascular office and then the transfer center at [facility], unfortunately patient is declined for transfer due to capacity issues. No acute need for vascular at this time. Will keep the patient here, transfuse as needed, monitor for bleeding. Hospitalist virginie texted for admission. Differential Diagnosis Differential Diagnoses: The differential diagnosis associated with the presentation includes acute blood loss anemia 2/2 UGIB with AVMs vs PUD vs diulefloy lesion vs mesenteric ischemia (less likely without acute pain) vs lower GI bleed w/ hemorrhoids, colitis Admission/Observation Consideration of admission/observation: Escalation of care including admission/observation considered Consult Healthcare Provider Management of the patient was discussed with: Hospitalist and [employer] Dr. Garduno - octreotide 200 mcg tid, blood transfusion, CTA if bleeding to look for active source Lab Data MDM Lab Attestation statement: I reviewed the patient's lab results. Acute blood loss anemia 04/07/24 12:33 04/07/24 12:33 Labs: Lab Results 04/07/24 04/07/24 Range/Units 12:33 13:12 WBC 10.6 (4.8-10.8) X10*3/uL RBC 1.92 L D (4.60-5.80) X10*6/uL Hgb 5.4 L* D (14.0-18.0) g/dl Hct 17.6 L* D (42.0-52.0) % MCV 91.7 (80.0-98.0) fL MCH 28.1 (27.0-33.0) pg MCHC 30.7 L (31.0-36.0) g/dl RDW 17.5 H (11.0-16.0) % Plt Count 388 (160-400) X10*3/uL MPV 9.3 L (9.4-12.4) fL Immature Gran % (Auto) 0.9 H (0.0-0.4) % Neut % (Auto) 67.1 (45-73) % Lymph % (Auto) 18.0 L (20-40) % [place] % (Auto) 12.9 H (2-11) % Eos % (Auto) 0.6 (0-4) % Baso % (Auto) 0.5 (0-2) % Lymph # (Auto) 1.9 (1.2-4.9) X10*3/uL [place] # (Auto) 1.4 H (0.1-1.2) X10*3/uL Eos # (Auto) 0.1 (0.0-0.4) X10*3/uL Baso # (Auto) 0.1 (0.0-0.2) X10*3/uL Abs Immat Gran (auto) 0.09 H (0.00-0.03) X10*3/uL Absolute Neuts (auto) 7.1 (2.0-8.3) x10*3/uL Absolute Nucleated RBC 0.020 H (0.0-0.012) X10*3/uL Nucleated RBC % (auto) 0.2 (0.0-0.2) /100WBC PT 29.2 H (11.1-13.3) SEC INR 2.4 H (0.9-1.1) APTT 35.4 (26.0-36.8) SEC Sodium 138 (135-145) mmol/L Potassium 3.7 (3.3-5.1) mmol/L Chloride 106 (96-108) mmol/L Carbon Dioxide 24 (22-29) mmol/L Anion Gap 12 (12-20) BUN 12 (9-16) mg/dL Creatinine 0.71 (0.5-1.4) mg/dL Estim Creat Clear Calc 131.7 Estimated GFR > 60 Random Glucose 73 (60-115) mg/dL Calcium 8.9 (8.4-10.2) mg/dL Magnesium 1.9 (1.6-2.6) mg/dL Total Bilirubin 0.3 (0.0-1.0) mg/dL Direct Bilirubin 0.1 (0.0-0.5) mg/dL AST 14 (5-37) U/L ALT 12 (0-40) U/L Alkaline Phosphatase 56 (39-117) U/L Troponin I High Sens < 2.7 (<3.5-35.0) ng/L Total Protein 5.9 L (6.5-8.0) g/dL Albumin 3.6 (3.5-5.0) g/dL Blood Type O Positive Antibody Screen NEGATIVE Crossmatch See Detail Independent Interpretation I performed an independent interpretation of an: EKG Interpretation: Normal sinus rhythm, ventricular rate 89 beats per minute, no ST segment elevations or depressions. Independent Historian Clinical information obtained from an independent historian. History obtained from or confirmed by: Spouse External Record Review External record reviewed: Inpatient record, Office record, Outpatient record, Prior outpatient labs and Prior outpatient radiology Tests considered The following testing was considered but not selected: Considered CT angiogram to look for active source of bleeding however not currently bleeding. Low clinical suspicion for any mesenteric ischemia Prescription Management I considered prescription management with: Other (octreotide) Chronic Conditions Patient?s care impacted by: Other (mesenteric ischemia) Critical Care Time Critical Care Time Critical Care Time: Yes Total Critical Care Time: 67 Attestation: I have personally provided critical care time exclusive of time spent on separately billable procedures. Time includes review of lab data, radiology results, discussion with consultants, and monitoring for potential decompensation. Intervention performed as documented. Discharge Plan Discharge Clinical Impression: ABLA (acute blood loss anemia), Upper gastrointestinal bleed Patient Disposition: Still a Patient Prescriptions: No Action aspirin 81 mg tablet,delayed release (DR/EC) 81 mg PO DAILY Qty: 90 1RF ondansetron 4 mg tablet,disintegrating 4 mg PO Q8H PRN (Reason: nausea and vomiting) Qty: 20 0RF cholecalciferol (vitamin D3) 1,250 mcg (50,000 unit) capsule 1,250 mcg PO FR warfarin 5 mg Tablet 7.5 mg PO MOTH Protocol: Dose Management Condition: Friday Dose/Route: 5 mg Instruction: 1 x 5 mg tablet Condition: Friday Dose/Route: 5 mg Instruction: 1 x 5 mg tablet Condition: Friday Dose/Route: 7.5 mg Instruction: 1.5 x 5 mg tablets Condition: Friday Dose/Route: 5 mg Instruction: 1 x 5 mg tablet Condition: Dose/Route: 7.5 mg Instruction: 1.5 x 5 mg tablets Condition: Friday Dose/Route: 5 mg Instruction: 1 x 5 mg tablet Condition: Friday Dose/Route: 7.5 mg Instruction: 1.5 x 5 mg tablets Protocol Text: Adjustment Start Date: Friday04/05/24 INR Value: 2.5 INR Date: 04/05/24 Recheck Date: 04/07/24 Additional Instructions: REVIEW FOOD LIST CHANGE DOSE pantoprazole 40 mg tablet,delayed release (DR/EC) 40 mg PO DAILY@0630 sucralfate [Carafate] 100 mg/mL suspension 10 ml PO BID mesalamine [Apriso] 0.375 gram capsule,extended release 24hr 1.5 g PO DAILY ferrous sulfate 324 mg (65 mg iron) tablet,delayed release (DR/EC) 324 mg PO DAILY Qty: 30 0RF octreotide acetate 100 mcg/mL (1 mL) syringe subcut BID clopidogrel 75 mg tablet 75 mg PO DAILY Print Language: Cypriot
--- NOTE | 2024-04-07 11:58 | PC.NURSE ---
Patient is a difficult stick, unable to obtain labs and IV on arrival, PA at bedside with ultrasound
--- NOTE | 2024-04-07 12:23 | ECG_ITS ---
Test Reason : Chest Pain Blood Pressure : / mmHG Vent. Rate : 089 BPM Atrial Rate : 089 BPM P-R Int : 116 ms QRS Dur : 090 ms QT Int : 330 ms P-R-T Axes : 068 031 008 degrees QTc Int : 401 ms Normal sinus rhythm Normal ECG When compared with ECG of 30-MAR-2024 13:07, No significant change was found Referred By: Rebeka Jones Electronically Signed By:BACILIO WARREN
[2024-04-07 12:38] LABS: MANUAL DIFF FLAG NO
[2024-04-07 12:40] LABS: Basophils Absolute Auto 0.1 X10*3/uL (0.0-0.2); Basophils Percent Auto 0.5 % (0-2); Eosinophils Absolute Auto 0.1 X10*3/uL (0.0-0.4); Eosinophils Percent Auto 0.6 % (0-4); Imm Gran Abs Auto 0.09 X10*3/uL (0.00-0.03); Imm Gran Pct Auto 0.9 % (0.0-0.4); Lymphocytes Absolute Auto 1.9 X10*3/uL (1.2-4.9); Mean Corpuscular HGB Conc 30.7 g/dl (31.0-36.0); Mean Corpuscular Hemoglobin 28.1 pg (27.0-33.0); Mean Corpuscular Volume 91.7 fL (80.0-98.0); Mean Platelet Volume 9.3 fL (9.4-12.4); Monocytes Absolute Auto 1.4 X10*3/uL (0.1-1.2); Monocytes Percent Auto 12.9 % (2-11); NRBC Pct Auto 0.2 /100WBC (0.0-0.2); Neutrophils Absolute Auto 7.1 x10*3/uL (2.0-8.3); Neutrophils Percent Auto 67.1 % (45-73); Platelet Count 388 X10*3/uL (160-400); Red Blood Count 1.92 X10*6/uL (4.60-5.80); Red Cell Distribution Width 17.5 % (11.0-16.0); White Blood Count 10.6 X10*3/uL (4.8-10.8)
[2024-04-07 12:46] LABS: Hematocrit 17.6 % (42.0-52.0)
[2024-04-07] MEDS: Pantoprazole Sodium 40 MG/10 ML VIAL IVPUSH (12:47)
[2024-04-07 12:48] LABS: Hemoglobin 5.4 g/dl (14.0-18.0); INTERNATIONAL NORM RATIO 2.4 (0.9-1.1); Prothrombin Time 29.2 SEC (11.1-13.3)
[2024-04-07 12:50] LABS: Partial Thromboplastin Time 35.4 SEC (26.0-36.8)
[2024-04-07 12:58] LABS: Alanine Aminotransferase 12 U/L (0-40); Albumin Level 3.6 g/dL (3.5-5.0); Alkaline Phosphatase 56 U/L (39-117); Anion Gap 12 (12-20); Aspartate Amino Transferase 14 U/L (5-37); Bilirubin Direct 0.1 mg/dL (0.0-0.5); Bilirubin Total 0.3 mg/dL (0.0-1.0); Blood Urea Nitrogen 12 mg/dL (9-16); Calcium 8.9 mg/dL (8.4-10.2); Carbon Dioxide 24 mmol/L (22-29); Chloride 106 mmol/L (96-108); Creatinine Clr Calc Pharmacy 131.7; Estimated Glomerular Filt Rate > 60; Glucose Random 73 mg/dL (60-115); Magnesium 1.9 mg/dL (1.6-2.6); Potassium 3.7 mmol/L (3.3-5.1); Sodium 138 mmol/L (135-145); Total Protein 5.9 g/dL (6.5-8.0)
[2024-04-07 13:55] LABS: Troponin-I High Sensitivity < 2.7 ng/L (<3.5-35.0)
--- NOTE | 2024-04-07 15:11 | PC.NURSE ---
this RN resumed care of pt at 1500. 1st unit of PRBC infusion started at 1507. pt currently tolerating transfusion well at this time - no complications/reactions noted. pt currently c/o feeling generalized weakness at this time. pt seemingly pale upon physical assessment. per previous RN - pt is a difficult stick - octreotide acetate being held/not administering at this time d/t pt having limited IV access at this time. pt currently has one access - 20gIV in the right upper forearm that was placed by US guidance. PRBC currently transfusing through only IV access at this time. no sob/wob noted. respirations even/unlabored. plan of care ongoing. family bedside for support. call king placed within reach.
[2024-04-07 16:36] LABS: Appearance Urine Clear; Color Urine Yellow; Glucose Urine UA Negative (Negative); Leukocyte Esterase Urine Negative (Negative); Nitrite Urine Negative (Negative); PH 6.5 (5.0-9.0); Specific Gravity - Urine 1.015 (1.005-1.025); Urine Blood Negative (Negative); Urine Ketones Trace mg/dL (Negative); Urine Protein Negative (Neg-Trace)
[2024-04-07] MEDS: Octreotide Acetate 100 MCG/ML AMPUL 200 MCG SUBCUT (16:42)
--- NOTE | 2024-04-07 16:45 | PHA.MEDREC ---
Pharmacy Consult ? Medication Reconciliation Pharmacy has completed the medication reconciliation. Confirmed medications with patient. Patient states his doctor told him to hold his Clopidogrel due to his blood levels and told him not to continue it until they figure out whats going on in the hospital but did take it today forgetting to hold it. he confirmed he is still taking Warfarin 5mg daily and 7.5mg every 2 days. He last took his Warfarin 5mg tab yesterday and his 7.5mg tab 2 days ago. He confirmed he is taking a Octreotide Acetate 100mcg injection BID and he last took that yesterday.
--- NOTE | 2024-04-07 16:51 | P.HPHOSP_ITS ---
History of Present Illness Date of Service: 04/07/24 Chief Complaint: Black stools 48-year-old gentleman with past medical history significant for 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 and recent celiac artery stenting ([facility] vascular) 02/2024 on coumadin with lovenox bridge/asa/plavix, history of hyperlipidemia, iron deficiency anemia, history of peptic ulcer disease, depression, internal hemorrhoids presented to the ED with recurrent black stools. States compliant with his Coumadin and Plavix secondary to past stent clotting. Recently admitted 03/30 through 04/02/24. (please see past chart notes for details). In the emergency room hemoglobin found to be 5.4 for which he is being transfused 2 units. GI consulted and recommended octreotide subQ secondary to poor IV access. At this point in time he will be admitted for blood and further treatment as per GI Review of Systems 2 Review of Systems: Denies chest pain Denies shortness of breath Denies nausea vomiting diarrhea Denies fever chills PMFSH Medical History Anemia Vitamin D deficiency Mesenteric artery thrombosis CAD (coronary artery disease) Hyperlipidemia Iron deficiency anemia Superior mesenteric artery stenosis Celiac artery stenosis Vaccine refused by patient (~09/05/23) Cigar smoker unmotivated to quit Chronic vascular insufficiency of intestine Impaired fasting glucose Diarrhea Granular cell tumor Chronic GERD Family History Maternal Aunt No problems noted. Maternal Aunt No problems noted. Surgical History H/O heart artery stent History of esophagogastroduodenoscopy (EGD) Hx of colectomy Hx of appendectomy Hx of colonoscopy Social History Household Members: Spouse Housing: Apartment Do you presently have visiting nurse or other home services: No Alcohol intake: former Patient Tobacco Use Status: Former Tobacco user Tobacco use type: Cigar Cigarettes Per Day: 1 Years Smoked: 3 Smoked in Last 30 Days: Yes e-Cigarette/Vaping Use: Never Used Use of substances other than those prescribed or required for medical reasons: No Substance Use Type: Marijuana Advance Directives: No Advance Directives Information Provided: Yes Do you have a plan to hurt others: No Plan service: No Current occupational status: employed Current occupational exposures/hazards: No Cognitive needs: No Hearing needs: No Vision needs: No Meds Allergies Allergy/AdvReac Type Severity Reaction Status Date / Time No Known Allergies Allergy Verified 04/07/24 10:57 Active Medications: Current Medications Acetaminophen (Acetaminophen 325 Mg Tablet) 650 mg PO Q6H PRN PRN Reason: Pain, Mild (Pain Scale 1-3), fever or headache Al Hydroxide/Mg Hydroxide (Magnesium Hydrox/Alum Hydrox 30 Ml Oral.Susp) 30 ml PO Q4H PRN PRN Reason: Heartburn Calcium Carbonate (Calcium Carbonate 750 Mg Tab.Chew) 750 mg PO Q4H PRN PRN Reason: Heartburn Magnesium Hydroxide (Milk Of Magnesia 30 Ml Oral.Susp) 30 ml PO DAILY PRN PRN Reason: Constipation Melatonin (Melatonin 3 Mg Tablet) 6 mg PO BEDTIME PRN PRN Reason: Insomnia Octreotide Acetate (Octreotide Acetate 100 Mcg/Ml Ampul) 200 mcg SUBCUT Q8H [facility] Last Admin: 04/07/24 16:42 Dose: 200 mcg Ondansetron HCl (Ondansetron Hcl 4 Mg/2 Ml Vial) 4 mg IVPUSH Q8H PRN PRN Reason: Nausea and Vomiting Oxycodone HCl (Oxycodone Hcl Immed Release 5 Mg Tablet) 10 mg PO Q4H PRN PRN Reason: Pain, Moderate(Pain Scale 4-6) Pantoprazole Sodium (Pantoprazole Sodium 40 Mg/10 Ml Vial) 40 mg IVPUSH DAILY ONE Stop: 04/07/24 16:50 Sodium Chloride (0.9 % Sodium Chloride Flush 3 Ml Syringe) [facility] Home Medications ?Medication ?Instructions ?Recorded ?Confirmed ?Last Taken ?Type clopidogrel 75 mg tablet 75 mg PO DAILY 03/12/24 04/05/24 04/07/24 History cholecalciferol (vitamin D3) 1,250 1,250 mcg PO FR 03/22/24 04/05/24 04/02/24 History mcg (50,000 unit) capsule pantoprazole 40 mg tablet,delayed 40 mg PO DAILY@0630 03/22/24 04/05/24 04/07/24 History release sucralfate 100 mg/mL oral 10 ml PO BID 03/22/24 04/05/24 04/06/24 History suspension (Carafate) warfarin 5 mg tablet 7.5 mg PO Q48H 03/22/24 04/05/24 04/05/24 History mesalamine 0.375 gram 1.5 g PO DAILY 03/30/24 04/05/24 04/06/24 History capsule,extended release 24 hr (Apriso) octreotide acetate 100 mcg/mL (1 100 mcg subcut BID 04/05/24 04/05/24 04/06/24 History mL) injection syringe warfarin 5 mg tablet 5 mg PO DAILY 04/07/24 04/07/24 04/06/24 History Physical Exam 2 Vital Signs and Narrative: Vital Signs: Last Vital Signs Temp 98.7 F 04/07/24 16:00 Pulse 85 04/07/24 16:00 Resp 18 04/07/24 16:00 BP 112/60 04/07/24 16:00 Pulse Ox 100 04/07/24 16:00 O2 Del Method Room Air 04/07/24 16:00 BMI result Body Mass Index 21.9 Const: Other: Awake alert no acute distress. Appears fatigued Resp: Other: Clear to auscultation bilaterally no rales rhonchi or wheezes Cardio: Other: No S4; positive S1-S2; no S3 murmurs rubs or gallops GI: Other: Soft nontender nondistended normoactive bowel sounds Neuro: Other: Cranial nerves 2-12 grossly intact as tested. Motor is 5/5 all extremities. Sensation is intact. Cognition appropriate. Gait not observed Extrem: Other: No edema bilaterally Results Labs 04/07/24 12:33 04/07/24 12:33 Labs: Laboratory Results - last 24 hr 04/07/24 04/07/24 04/07/24 12:33 13:12 16:28 MCV 91.7 MCH 28.1 MCHC 30.7 L RDW 17.5 H Plt Count 388 MPV 9.3 L Immature Gran % (Auto) 0.9 H Neut % (Auto) 67.1 Lymph % (Auto) 18.0 L [place] % (Auto) 12.9 H Eos % (Auto) 0.6 Baso % (Auto) 0.5 Lymph # (Auto) 1.9 [place] # (Auto) 1.4 H Eos # (Auto) 0.1 Baso # (Auto) 0.1 Abs Immat Gran (auto) 0.09 H Absolute Neuts (auto) 7.1 Absolute Nucleated RBC 0.020 H Nucleated RBC % (auto) 0.2 PT 29.2 H INR 2.4 H APTT 35.4 Anion Gap 12 Estim Creat Clear Calc 131.7 Estimated GFR > 60 Random Glucose 73 Calcium 8.9 Magnesium 1.9 Total Bilirubin 0.3 Direct Bilirubin 0.1 AST 14 ALT 12 Alkaline Phosphatase 56 Troponin I High Sens < 2.7 Total Protein 5.9 L Albumin 3.6 Urine Color Yellow Urine Appearance Clear Urine pH 6.5 Ur Specific [place] 1.015 Urine Protein Negative Urine Glucose (UA) Negative Urine Ketones Trace Urine Blood Negative Urine Nitrite Negative Ur Leukocyte Esterase Negative Blood Type O Positive Antibody Screen NEGATIVE Crossmatch See Detail Assessment and Plan (1) ABLA (acute blood loss anemia): Status: Acute (2) GI bleed: Qualifiers: GI bleed type/associated pathology: duodenal ulcer Qualified Code(s): K 26.4 - Chronic or unspecified duodenal ulcer with hemorrhage Status: Acute Plan 48-year-old male with past medical history significant for mesenteric ischemia status post SMA and celiac artery stenting complicated by thrombosis status post radical hemicolectomy on Coumadin and Plavix presents with dark tarry stools and worsening fatigue. Recently admitted 03/30/2024 through 04/02/2024. (please see notes for details). ER workup consistent with a hemoglobin less than 6 for which he is being transfused 2 units of packed cell. He will be admitted for further transfusion and GI consult 1. GI bleed with acute blood loss anemia -transfusing 2 units of packed cells this evening -follow CBC in a.m. -appreciate GI input. .. Octreotide as per recommendation -consult hematology. .. Question thalidomide 2. CAD -stable and well compensated at this time -continue outpatient therapies 3. History of mesenteric stent thrombosis -continue Coumadin as ordered -daily INR; adjust as indicated Full Code Coumadin Patient requires at least 2 midnights going forward for transfusion to correct acute blood loss anemia and further GI workup for cause. This can not be achieved a lesser acute setting Quality Stroke Does the patient have a stroke diagnosis?: No VTE Prior VTE?: No VTE Risk Level:: Medical - moderate - high VTE Device Contraindication: Treatment Not Indicated VTE Drug Contraindication: N/A - Med Ordered
--- NOTE | 2024-04-07 16:59 | PC.NURSE ---
2nd IV access secured - 20gIV placed in the left hand at this time. patent/intact. medication administered per provider order. 1st unit of PRBCs continues to infuse at this time. no complications/reactions noted. respirations remain even/unlabored. plan of care ongoing.
--- NOTE | 2024-04-07 17:15 | P.CNGI_ITS ---
History of Present Illness Data of Consult Service Date: 04/07/24 Requesting physician: Choco Vazquez Primary Care Provider: Unknown Physician HPI Reason for consult: anemia 48-year-old male with past medical history significant for 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 and recent celiac artery stenting ([email or web address] vascular) 02/2024 on coumadin with lovenox bridge/asa/plavix, history of hyperlipidemia, iron deficiency anemia, history of peptic ulcer disease, depression, internal hemorrhoids and smoking history who I am seeing for assessment for recurrent anemia. Patient had noted melenic stools for several days and HGB had been trending down -HGB today was around 5-6 g/dl and he felt weak and fatigued. He denies fevers, chills, nausea, vomiting, diarrhea, BRBPR, palpitations, sob, chest pain but does have lightheadedness. He has been compliant with octreotide a home. He spoke w/ his vasc surgeon at [facility] and talk of possible bypass graft/ He had EGD 03/24/24 with area of bleeding noted in distal duodenum treated with hemospray. LAST CTA 03/22/24: patent SMA stent, no active bleeding source seen Review of Systems 2 Review of Systems: Constitutional : No Weight loss, No Fever, No Chills ENT/Mouth : No sore throat, No Rhinorrhea Eyes: No Swelling, No Redness Cardiovascular : No Chest Pain, No SOB, No Edema Respiratory : No Cough, No Sputum, No Wheezing Gastrointestinal : see HPI Genitourinary : NO Dysuria, No Urinary Frequency, No Hematuria, No Urgency Musculoskeletal : no joint pain, No Myalgias, No Joint Swelling Skin : No Skin Lesions, No rash Neuro : + Weakness, No Numbness, + Dizziness, No Headache Psych : No Anxiety/Panic, No Depression Heme/Lymph: No Bruising, No Lymphadenopathy Endocrine : No Polyuria, No Polydipsia All other systems reviewed and are negative. [facility] Past Medical History Medical History Anemia Vitamin D deficiency Mesenteric artery thrombosis CAD (coronary artery disease) Hyperlipidemia Iron deficiency anemia Superior mesenteric artery stenosis Celiac artery stenosis Vaccine refused by patient (~09/05/23) Cigar smoker unmotivated to quit Chronic vascular insufficiency of intestine Impaired fasting glucose Diarrhea Granular cell tumor Chronic GERD Family History Family History Maternal Aunt No problems noted. Maternal Aunt No problems noted. Surgical History Surgical History H/O heart artery stent History of esophagogastroduodenoscopy (EGD) Hx of colectomy Hx of appendectomy Hx of colonoscopy Social History Social History Household Members: Spouse Housing: Apartment Do you presently have visiting nurse or other home services: No Alcohol intake: former Patient Tobacco Use Status: Former Tobacco user Tobacco use type: Cigar Years Smoked: 3 e-Cigarette/Vaping Use: Never Used Substance Use Type: Marijuana service: No Current occupational status: employed Current occupational exposures/hazards: No Cognitive needs: No Hearing needs: No Vision needs: No Meds Allergies Allergy/AdvReac Type Severity Reaction Status Date / Time No Known Allergies Allergy Verified 04/07/24 10:57 Active Medications: Current Medications Acetaminophen (Acetaminophen 325 Mg Tablet) 650 mg PO Q6H PRN PRN Reason: Pain, Mild (Pain Scale 1-3), fever or headache Al Hydroxide/Mg Hydroxide (Magnesium Hydrox/Alum Hydrox 30 Ml Oral.Susp) 30 ml PO Q4H PRN PRN Reason: Heartburn Calcium Carbonate (Calcium Carbonate 750 Mg Tab.Chew) 750 mg PO Q4H PRN PRN Reason: Heartburn Octreotide Acetate 500 mcg/ (Sodium Chloride) 501 mls @ 50.1 mls/hr IVCONT .Q10H [facility] Magnesium Hydroxide (Milk Of Magnesia 30 Ml Oral.Susp) 30 ml PO DAILY PRN PRN Reason: Constipation Melatonin (Melatonin 3 Mg Tablet) 6 mg PO BEDTIME PRN PRN Reason: Insomnia Ondansetron HCl (Ondansetron Hcl 4 Mg/2 Ml Vial) 4 mg IVPUSH Q8H PRN PRN Reason: Nausea and Vomiting Oxycodone HCl (Oxycodone Hcl Immed Release 5 Mg Tablet) 10 mg PO Q4H PRN PRN Reason: Pain, Moderate(Pain Scale 4-6) Pantoprazole Sodium (Pantoprazole Sodium 40 Mg/10 Ml Vial) 40 mg IVPUSH DAILY ONE Stop: 04/07/24 16:50 Sodium Chloride (0.9 % Sodium Chloride Flush 3 Ml Syringe) 3 [facility] Home Medications ?Medication ?Instructions ?Recorded ?Confirmed ?Last Taken ?Type clopidogrel 75 mg tablet 75 mg PO DAILY 03/12/24 04/05/24 04/07/24 History cholecalciferol (vitamin D3) 1,250 1,250 mcg PO FR 03/22/24 04/05/24 04/02/24 History mcg (50,000 unit) capsule pantoprazole 40 mg tablet,delayed 40 mg PO DAILY@0630 03/22/24 04/05/24 04/07/24 History release sucralfate 100 mg/mL oral 10 ml PO BID 03/22/24 04/05/24 04/06/24 History suspension (Carafate) warfarin 5 mg tablet 7.5 mg PO Q48H 03/22/24 04/05/24 04/05/24 History mesalamine 0.375 gram 1.5 g PO DAILY 03/30/24 04/05/24 04/06/24 History capsule,extended release 24 hr (Apriso) octreotide acetate 100 mcg/mL (1 100 mcg subcut BID 04/05/24 04/05/24 04/06/24 History mL) injection syringe warfarin 5 mg tablet 5 mg PO DAILY 04/07/24 04/07/24 04/06/24 History Physical Exam 2 Vital Signs: Vital Signs: Last Vital Signs Temp 98.7 F 04/07/24 17:02 Pulse 73 04/07/24 17:02 Resp 16 04/07/24 17:02 BP 109/76 04/07/24 17:02 Pulse Ox 100 04/07/24 16:00 O2 Del Method Room Air 04/07/24 16:00 BMI result Body Mass Index 21.9 EXAM: GENERAL: The patient is well developed and nontoxic. VITAL SIGNS:see workflow HEENT: Nonicteric sclerae, PERRLA, EOMI. Oropharynx clear. Moist mucous membranes. Conjunctivae appear pale. No thyroid mass. CHEST: Chest wall is nontender. HEART: Regular rate and rhythm without murmurs. LUNGS: Clear to auscultation bilaterally. ABDOMEN: Soft, positive bowel sounds, nontender, no organomegaly.no flank tenderness SKIN: No rash, no excessive bruising, petechiae, or purpura. NEUROLOGIC: Cranial nerves II-XII intact without motor/sensory deficit. Psych: normal affect Results Labs 04/08/24 05:49 04/08/24 05:49 Labs: Short CBC 04/07/24 Range/Units 12:33 WBC 10.6 (4.8-10.8) X10*3/uL Hgb 5.4 L* D (14.0-18.0) g/dl Hct 17.6 L* D (42.0-52.0) % Plt Count 388 (160-400) X10*3/uL BMP 04/07/24 12:33 Sodium 138 Potassium 3.7 Chloride 106 Carbon Dioxide 24 BUN 12 Creatinine 0.71 Calcium 8.9 Liver Function 04/07/24 Range/Units 12:33 Total Bilirubin 0.3 (0.0-1.0) mg/dL Direct Bilirubin 0.1 (0.0-0.5) mg/dL AST 14 (5-37) U/L ALT 12 (0-40) U/L Alkaline Phosphatase 56 (39-117) U/L Albumin 3.6 (3.5-5.0) g/dL Urine 04/07/24 Range/Units 16:28 Urine Color Yellow Urine Appearance Clear Urine pH 6.5 (5.0-9.0) Ur Specific [place] 1.015 (1.005-1.025) Urine Protein Negative (Neg-Trace) mg/dL Urine Glucose (UA) Negative (Negative) mg/dL Assessment and Plan (1) Upper gastrointestinal bleed: Status: Acute Plan 1/ Acute on subacute GIB , prob from AVM PLAN: 1/ transfuse for hgb target 8-9 g/dl 2/ CTA if HGb doesn't increase appropriately aftr PRBC 3/cont with BID dosing PPI, 4/ d/w heme about using thalidomide Procedures Date of Service Date of Service: 04/08/24
--- NOTE | 2024-04-07 17:20 | PC.NURSE ---
1st unit of PRBCs completely infused. 2nd unit of PRBC infusing at this time. vss and up to date. nsr on the ekg monitor. respirations remain even/unlabored. family remains bedside. plan of care ongoing. call king placed within reach.
[2024-04-07] MEDS: Octreotide Acetate 500 MCG in 0.9 % Sodium Chloride 500 ML 50.1 MCG IVCONT (17:57)
--- NOTE | 2024-04-07 19:42 | PC.NURSE ---
2nd unit of PRBCs completed at this time. pt tolerated well. vitals remain stable. nsr on the nuclear monitoring technician. no sob/wob noted. respirations even/unlabored. pt being transported upstairs at this time.
[2024-04-08] MEDS: Octreotide Acetate 500 MCG in 0.9 % Sodium Chloride 500 ML 50.1 MCG IVCONT ×2 (03:09→12:46)
[2024-04-08 04:00] VITALS: BP 131/66; PULSE 72; RESP 18; TEMP 36.5; O2SAT 99
[2024-04-08 06:39] LABS: MANUAL DIFF FLAG NO
[2024-04-08 06:45] LABS: Basophils Absolute Auto 0.1 X10*3/uL (0.0-0.2); Basophils Percent Auto 0.9 % (0-2); Eosinophils Absolute Auto 0.1 X10*3/uL (0.0-0.4); Eosinophils Percent Auto 1.4 % (0-4); Hematocrit 24.8 % (42.0-52.0); Imm Gran Abs Auto 0.04 X10*3/uL (0.00-0.03); Imm Gran Pct Auto 0.5 % (0.0-0.4); Lymphocytes Absolute Auto 1.7 X10*3/uL (1.2-4.9); Lymphocytes Percent Auto 22.5 % (20-40); Mean Corpuscular HGB Conc 32.3 g/dl (31.0-36.0); Mean Corpuscular Hemoglobin 29.3 pg (27.0-33.0); Mean Corpuscular Volume 90.8 fL (80.0-98.0); Mean Platelet Volume 9.6 fL (9.4-12.4); Monocytes Absolute Auto 1.1 X10*3/uL (0.1-1.2); Monocytes Percent Auto 14.2 % (2-11); NRBC Pct Auto 0.3 /100WBC (0.0-0.2); Neutrophils Absolute Auto 4.7 x10*3/uL (2.0-8.3); Neutrophils Percent Auto 60.5 % (45-73); Platelet Count 361 X10*3/uL (160-400); Red Blood Count 2.73 X10*6/uL (4.60-5.80); Red Cell Distribution Width 16.2 % (11.0-16.0); White Blood Count 7.7 X10*3/uL (4.8-10.8)
[2024-04-08 06:51] LABS: INTERNATIONAL NORM RATIO 1.8 (0.9-1.1); Prothrombin Time 22.5 SEC (11.1-13.3)
[2024-04-08 07:05] LABS: Alanine Aminotransferase 12 U/L (0-40); Albumin Level 3.4 g/dL (3.5-5.0); Alkaline Phosphatase 57 U/L (39-117); Anion Gap 14 (12-20); Aspartate Amino Transferase 12 U/L (5-37); Bilirubin Total 1.1 mg/dL (0.0-1.0); Blood Urea Nitrogen 9 mg/dL (9-16); Calcium 8.8 mg/dL (8.4-10.2); Carbon Dioxide 22 mmol/L (22-29); Chloride 109 mmol/L (96-108); Creatinine Clr Calc Pharmacy 148.6; Estimated Glomerular Filt Rate > 60; Glucose Random 119 mg/dL (60-115); Potassium 4.1 mmol/L (3.3-5.1); Sodium 141 mmol/L (135-145); Total Protein 5.5 g/dL (6.5-8.0)
[2024-04-08 08:00] VITALS: BP 134/68; PULSE 72; RESP 17; TEMP 36.7; O2SAT 100
--- NOTE | 2024-04-08 08:35 | P.CNHO_ITS ---
Subjective - Subjective Chief complaint: Consult for: 1. Anemia. 2. GI bleed 3. Mesenteric thrombosis Patient: new to practice Consult date: 04/08/24 Requesting Physician: Sindhu vazquez. Primary Care Provider: Unknown Physician Family Provider: sindhu Vazquez. Medical Summary: DIAGNOSIS: 1. ANEMIA. 2. GI BLEEDING. 3. ON ANTICOAGULATION FOR MESENTERIC THROMBOSIS. 4. STATUS POST STENTING. HPI - Consult Narrative Reason for consult: Consult for: 1. Anemia. 2. GI bleed. 3. Mesenteric thrombosis. Narrative: Seth Hui is a 48 year old gentleman with past medical history significant for 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 and recent celiac artery stenting ([facility] vascular) 02/2024 on coumadin with lovenox bridge/asa/plavix, history of hyperlipidemia, iron deficiency anemia, history of peptic ulcer disease, depression, internal hemorrhoids presented to the ED with recurrent black stools. He mentions that he is compliant with his Coumadin and Plavix secondary to past stent clotting. He was recently admitted 03/30 through 04/02/24. (please see past chart notes for details). In the emergency room hemoglobin found to be 5.4 for which he was transfused 2 units. GI consulted and recommended octreotide subQ secondary to poor IV access. Review of Systems 2 Review of Systems: Denies chest pain Denies shortness of breath Denies nausea vomiting diarrhea Denies fever chills PMFSH Medical History: Anemia Vitamin D deficiency Mesenteric artery thrombosis CAD (coronary artery disease) Hyperlipidemia Iron deficiency anemia Superior mesenteric artery stenosis Celiac artery stenosis Vaccine refused by patient (~09/05/23) Cigar smoker unmotivated to quit Chronic vascular insufficiency of intestine Impaired fasting glucose Diarrhea Granular cell tumor Chronic GERD Surgical History: H/O heart artery stent History of esophagogastroduodenoscopy (EGD) Hx of colectomy Hx of appendectomy Hx of colonoscopy Family History: Maternal Aunt. No problems noted. Social History: Household Members: Spouse Housing: Apartment Do you presently have visiting nurse or other home services: No Alcohol intake: former Patient Tobacco Use Status: Former Tobacco user Tobacco use type: Cigar Cigarettes Per Day: 1 Years Smoked: 3 e-Cigarette/Vaping Use: Never Used Substance Use Type: Marijuana Review of Systems - Constitutional Reports system reviewed and no additional complaints, except as documented - Eyes Reports system reviewed and no additional complaints, except as documented - ENT Reports system reviewed and no additional complaints, except as documented - Cardiovascular Reports system reviewed and no additional complaints, except as documented - Respiratory Reports no additional respiratory complaints - Gastrointestinal Reports system reviewed and no additional complaints, except as documented - Genitourinary Genitourinary: Reports no additional male genitourinary complaints - Musculoskeletal Reports system reviewed and no additional complaints, except as documented - Integumentary/Breasts Skin/Breast: Reports no additional skin complaints - Neurologic Reports system reviewed and no additional complaints, except as documented - Psychiatric Reports system reviewed and no additional complaints, except as documented - Endocrine Reports no additional endocrine complaints - Hematologic/Lymphatic Reports system reviewed and no additional complaints, except as documented - Allergic/Immunologic Reports system reviewed and no additional complaints, except as documented Oncology Screenings - ECOG Performance Status ECOG Performance Status: 2 [facility] Medical History: Medical History (Last Updated 04/09/24 @ 17:24 by Ngoc Fung MD) AVM (arteriovenous malformation) of duodenum, acquired with hemorrhage CAD (coronary artery disease) Celiac artery stenosis Chronic GERD Chronic vascular insufficiency of intestine Cigar smoker unmotivated to quit Diarrhea Granular cell tumor Hyperlipidemia Impaired fasting glucose 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 Maternal Aunt No problems noted. Surgical History: Surgical History (Last Reviewed 04/09/24 @ 17:12 by Ngoc Fung MD) H/O heart artery stent History of esophagogastroduodenoscopy (EGD) Hx of appendectomy Hx of colectomy Hx of colonoscopy Social History: Social History (Last Reviewed 04/09/24 @ 17:12 by Ngoc Fung MD) Living Situation History: Household Members: Spouse Housing: Apartment Do you presently have visiting nurse or other home services: No Tobacco History: Patient Tobacco Use Status: Former Tobacco user Tobacco use type: Cigar Years Smoked: 3 e-Cigarette/Vaping Use: Never Used Substance Use History: Substance Use Type: Marijuana Occupation Assessmet: service: No Current occupational status: employed Current occupational exposures/hazards: No Home Medications and Allergies Current Medications: Current Medications Acetaminophen (Acetaminophen 325 Mg Tablet) 650 mg PO Q6H PRN PRN Reason: Pain, Mild (Pain Scale 1-3), fever or headache Al Hydroxide/Mg Hydroxide (Magnesium Hydrox/Alum Hydrox 30 Ml Oral.Susp) 30 ml PO Q4H PRN PRN Reason: Heartburn Calcium Carbonate (Calcium Carbonate 750 Mg Tab.Chew) 750 mg PO Q4H PRN PRN Reason: Heartburn Octreotide Acetate 500 mcg/ (Sodium Chloride) 501 mls @ 50.1 mls/hr IVCONT .Q10H [facility] Last Admin: 04/08/24 03:09 Dose: 50 mcg/hr, 50.1 mls/hr Magnesium Hydroxide (Milk Of Magnesia 30 Ml Oral.Susp) 30 ml PO DAILY PRN PRN Reason: Constipation Melatonin (Melatonin 3 Mg Tablet) 6 mg PO BEDTIME PRN PRN Reason: Insomnia Ondansetron HCl (Ondansetron Hcl 4 Mg/2 Ml Vial) 4 mg IVPUSH Q8H PRN PRN Reason: Nausea and Vomiting Oxycodone HCl (Oxycodone Hcl Immed Release 5 Mg Tablet) 10 mg PO Q4H PRN PRN Reason: Pain, Moderate(Pain Scale 4-6) Pantoprazole Sodium (Pantoprazole Sodium 40 Mg/10 Ml Vial) 40 mg IVPUSH DAILY [facility] Sodium Chloride (0.9 % Sodium Chloride Flush 3 Ml Syringe) 3 ml IVFLUSH QSHIFT [facility] Last Admin: 04/08/24 00:08 Dose: Not Given Home Medications ?Medication ?Instructions ?Recorded ?Confirmed ?Type clopidogrel 75 mg tablet 75 mg PO DAILY 03/12/24 04/05/24 History cholecalciferol (vitamin D3) 1,250 1,250 mcg PO FR 03/22/24 04/05/24 History mcg (50,000 unit) capsule pantoprazole 40 mg tablet,delayed 40 mg PO DAILY@0630 03/22/24 04/05/24 History release sucralfate 100 mg/mL oral 10 ml PO BID 03/22/24 04/05/24 History suspension (Carafate) warfarin 5 mg tablet 7.5 mg PO Q48H 03/22/24 04/05/24 History warfarin 5 mg tablet 5 mg PO DAILY 04/07/24 04/07/24 History octreotide acetate 100 mcg/mL (1 100 mcg subcut Q8H 04/08/24 History mL) injection syringe Allergies Allergy/AdvReac Type Severity Reaction Status Date / Time No Known Allergies Allergy Verified 04/07/24 10:57 Physical Exam Vital signs: Vital Signs Temp 98.1 F 04/08/24 08:00 Pulse 72 04/08/24 08:00 Resp 17 04/08/24 08:00 BP 134/68 04/08/24 08:00 Pulse Ox 100 04/08/24 08:00 O2 Del Method Room Air 04/08/24 08:00 Intake & Output 04/07/24 04/08/24 04/08/24 18:59 06:59 18:59 Intake Total 450 / 1840.92 1390.92 / 1840.92 Balance 450 / 1840.92 1390.92 / 1840.92 Intake: Intake, Oral Amount 480 / 480 Intake (Blood Product) Amount 350 / 700 350 / 700 Red Blood Cells (E0336) Unit 350 / 350 [id number] Red Blood Cells (E0336) Unit 0 / 350 350 / 350 [id number] Intake, IV Amount 100 / 660.92 560.92 / 660.92 0.9 % Sodium Chloride 100 ml @ 100 / 200 100 / 200 100 mls/hr IV ONCE ONE Rx#: [id number] Octreotide Acetate 500 mcg In 0 460.92 / 460.92 .9 % Sodium Chloride 500 ml @ 50 MCG/HR 50.1 mls/hr IVCONT . Q10H [facility]OS[facility] Rx#:[id number] Other: Number of Unmeasured Voids 2 Urine Bathroom Urine Color Yellow Weight 73.2 kg 76.8 kg Weight in Grams 37685 Weight 76.8 kg - Constitutional Present: mild distress - Routine HEENT Exam Head: Present: normal inspection, normocephalic Eye: Present: normal appearance ENT: Present: mucous membranes moist - Routine Neck Exam Present: supple - Routine Respiratory Exam Present: CTAB - Routine Cardiovascular Exam Cardiovascular: Present: RRR, S1, S2 - Routine Abdominal Exam Present: soft, tenderness. Absent: nontender - Routine Extremities Exam Present: nontender - Routine Skin Exam Present: normal turgor - Routine Neurological Exam Present: alert - Detailed Neurological Exam: Coma Scale Eye Opening: Spontaneous (4) Verbal Response: Oriented (5) Motor Response: Obeys commands (6) [place] Coma Scale Total: 15 Hem/Onc Consult Result - Labs CBC & Chem 7: 04/11/24 06:09 04/10/24 05:49 Labs: Short CBC 04/07/24 04/08/24 Range/Units 12:33 05:49 WBC 10.6 7.7 (4.8-10.8) X10*3/uL Hgb 5.4 L* D 8.0 L D (14.0-18.0) g/dl Hct 17.6 L* D 24.8 L D (42.0-52.0) % Plt Count 388 361 (160-400) X10*3/uL BMP 04/07/24 04/08/24 12:33 05:49 Sodium 138 141 Potassium 3.7 4.1 Chloride 106 109 H Carbon Dioxide 24 22 BUN 12 9 Creatinine 0.71 0.66 Calcium 8.9 8.8 Liver Function 04/07/24 04/08/24 Range/Units 12:33 05:49 Total Bilirubin 0.3 1.1 H (0.0-1.0) mg/dL Direct Bilirubin 0.1 (0.0-0.5) mg/dL AST 14 12 (5-37) U/L ALT 12 12 (0-40) U/L Alkaline Phosphatase 56 57 (39-117) U/L Albumin 3.6 3.4 L (3.5-5.0) g/dL Urine 04/07/24 Range/Units 16:28 Urine Color Yellow Urine Appearance Clear Urine pH 6.5 (5.0-9.0) Ur Specific [place] 1.015 (1.005-1.025) Urine Protein Negative (Neg-Trace) mg/dL Urine Glucose (UA) Negative (Negative) mg/dL Assessment and Plan Patient Active problem list reviewed?: Yes (1) Mesenteric thrombosis Status: Acute Assessment and plan: This is a pleasant 48-year-old gentleman, past medical history significant for 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 and recent celiac artery stenting ([facility] vascular) 02/2024 on coumadin with lovenox bridge/asa/plavix, history of hyperlipidemia, iron deficiency anemia, history of peptic ulcer disease, depression, internal hemorrhoids presented to the ED with recurrent black stools. He mentions that he is compliant with his Coumadin and Plavix secondary to past stent clotting. He was recently admitted 03/30 through 04/02/24. (please see past chart notes for details). In the emergency room hemoglobin found to be 5.4 for which he was transfused 2 units. GI consulted and recommended octreotide subQ secondary to poor IV access. He has not had any further BM today. Last 1 yesterday was melanotic stool. His H&H has stabilized for now. He is on octreotide subcut. PLAN: I will discuss his case with the vascular surgeon at [facility] Dr. Dayo Abdul. If the bleeding persists, he may need an angiographic/surgical intervention. Meanwhile will hold off on the Plavix, in view of the bleeding. On warfarin. Being bridged with Lovenox. He can stay on the baby aspirin for now. Indication for thalidomide is soft, not available in the surrounding medical centers, as of now Thank you for the consult, I will follow along with you, CC: Dr. Sindhu Vazquez. - Time Spent With Patient Time Spent with Patient (in minutes): 30
[2024-04-08] MEDS: Pantoprazole Sodium 40 MG/10 ML VIAL IVPUSH (09:08)
[2024-04-08] MEDS: 0.9 % Sodium Chloride Flush 3 ML SYRINGE IVFLUSH ×3 (09:08→23:21)
--- NOTE | 2024-04-08 14:16 | P.PNIM_ITS ---
Subjective Subjective Date of Service: 04/08/24 Interval History: Good response from transfusion. No further bleeding since admission. Tolerant of diet Review of Systems Denies chest pain Denies shortness of breath Denies nausea vomiting diarrhea Denies fever chills Physical Exam 2 Vital Signs: Vital Signs: Last Vital Signs Temp 98.1 F 04/08/24 08:00 Pulse 72 04/08/24 08:00 Resp 17 04/08/24 08:00 BP 134/68 04/08/24 08:00 Pulse Ox 100 04/08/24 08:00 O2 Del Method Room Air 04/08/24 08:00 BMI result Body Mass Index 23.0 Const: Other: Awake alert no acute distress. Appears fatigued Resp: Other: Clear to auscultation bilaterally no rales rhonchi or wheezes Cardio: Other: No S4; positive S1-S2; no S3 murmurs rubs or gallops GI: Other: Soft nontender nondistended normoactive bowel sounds Neuro: Other: Cranial nerves 2-12 grossly intact as tested. Motor is 5/5 all extremities. Sensation is intact. Cognition appropriate. Gait not observed Extrem: Other: No edema bilaterally Objective Data Active Medications Acetaminophen (Acetaminophen 325 Mg Tablet) 650 mg PO Q6H PRN PRN Reason: Pain, Mild (Pain Scale 1-3), fever or headache Al Hydroxide/Mg Hydroxide (Magnesium Hydrox/Alum Hydrox 30 Ml Oral.Susp) 30 ml PO Q4H PRN PRN Reason: Heartburn Calcium Carbonate (Calcium Carbonate 750 Mg Tab.Chew) 750 mg PO Q4H PRN PRN Reason: Heartburn Octreotide Acetate 500 mcg/ (Sodium Chloride) 501 mls @ 50.1 mls/hr IVCONT .Q10H [facility] Last Admin: 04/08/24 12:46 Dose: 50 mcg/hr, 50.1 mls/hr Documented By: IGNACIO Magnesium Hydroxide (Milk Of Magnesia 30 Ml Oral.Susp) 30 ml PO DAILY PRN PRN Reason: Constipation Melatonin (Melatonin 3 Mg Tablet) 6 mg PO BEDTIME PRN PRN Reason: Insomnia Ondansetron HCl (Ondansetron Hcl 4 Mg/2 Ml Vial) 4 mg IVPUSH Q8H PRN PRN Reason: Nausea and Vomiting Oxycodone HCl (Oxycodone Hcl Immed Release 5 Mg Tablet) 10 mg PO Q4H PRN PRN Reason: Pain, Moderate(Pain Scale 4-6) Pantoprazole Sodium (Pantoprazole Sodium 40 Mg/10 Ml Vial) 40 mg IVPUSH DAILY [facility] Last Admin: 04/08/24 09:08 Dose: 40 mg Documented By: IGNACIO Sodium Chloride (0.9 % Sodium Chloride Flush 3 Ml Syringe) 3 ml IVFLUSH QSHIFT [facility] Last Admin: 04/08/24 09:08 Dose: 3 ml Documented By: IGNACIO Labs 04/08/24 05:49 04/08/24 05:49 Labs: Laboratory Results - last 24 hr 04/07/24 04/07/24 04/08/24 13:12 16:28 05:49 MCV 90.8 MCH 29.3 MCHC 32.3 RDW 16.2 H Plt Count 361 MPV 9.6 Immature Gran % (Auto) 0.5 H Neut % (Auto) 60.5 Lymph % (Auto) 22.5 [place] % (Auto) 14.2 H Eos % (Auto) 1.4 Baso % (Auto) 0.9 Lymph # (Auto) 1.7 [place] # (Auto) 1.1 Eos # (Auto) 0.1 Baso # (Auto) 0.1 Abs Immat Gran (auto) 0.04 H Absolute Neuts (auto) 4.7 Absolute Nucleated RBC 0.020 H Nucleated RBC % (auto) 0.3 H PT 22.5 H D INR 1.8 H Anion Gap 14 Estim Creat Clear Calc 148.6 Estimated GFR > 60 Random Glucose 119 H Calcium 8.8 Total Bilirubin 1.1 H AST 12 ALT 12 Alkaline Phosphatase 57 Total Protein 5.5 L Albumin 3.4 L Urine Color Yellow Urine Appearance Clear Urine pH 6.5 Ur Specific [place] 1.015 Urine Protein Negative Urine Glucose (UA) Negative Urine Ketones Trace Urine Blood Negative Urine Nitrite Negative Ur Leukocyte Esterase Negative Blood Type O Positive Antibody Screen NEGATIVE Crossmatch See Detail Assessment and Plan (1) GI bleed: Status: Acute (2) ABLA (acute blood loss anemia): Status: Acute (3) Mesenteric thrombosis: Status: Acute Plan 48-year-old male with past medical history significant for mesenteric ischemia status post SMA and celiac artery stenting complicated by thrombosis status post radical hemicolectomy on Coumadin and Plavix presents with dark tarry stools and worsening fatigue. Recently admitted 03/30/2024 through 04/02/2024. (please see notes for details). ER workup consistent with a hemoglobin less than 6 for which he is being transfused 2 units of packed cell. He will be admitted for further transfusion and GI consult 1. GI bleed with acute blood loss anemia -good response to transfusion -follow CBC in a.m. -DC octreotide drip. . . Octreotide 100 mcg subcu q.8 hours -advance diet -consult hematology. .. Question thalidomide 2. CAD -stable and well compensated at this time -continue outpatient therapies 3. History of mesenteric stent thrombosis -continue Coumadin as ordered -daily INR; adjust as indicated Full Code Coumadin Patient requires at least 2 midnights going forward for transfusion to correct acute blood loss anemia and further GI workup for cause. This can not be achieved a lesser acute setting Quality Stroke Does the patient have a stroke diagnosis?: No VTE Prior VTE?: No VTE Risk Level:: Medical - moderate - high VTE Device Contraindication: Treatment Not Indicated VTE Drug Contraindication: N/A - Med Ordered
[2024-04-08 15:05] VITALS: BP 122/65; PULSE 72; RESP 18; TEMP 36.8; O2SAT 100
--- NOTE | 2024-04-08 16:23 | MHC.CM.PN ---
PT REPORTS HE LIVES WITH HIS AND IS INDEPENDENT WITH CARE HE HAS NO DME AND NO HOME SERVICES PT SAYS HE IS NOW ACTIVE WITH [facility] FOR PRIMARY CARE HCP ON FILE DCP: HOME NO SERVICES VIA PRIVATE TRANSPORT
[2024-04-08] MEDS: Octreotide Acetate 100 MCG/ML AMPUL SUBCUT ×2 (17:09→23:17)
[2024-04-08 18:52] VITALS: BP 138/70; PULSE 72; RESP 18; TEMP 36.6; O2SAT 100
[2024-04-08 19:48] LABS: OBS Int Ctl Valid YES; OBS1 POSITIVE (NEGATIVE)
[2024-04-09 04:00] VITALS: BP 117/67; PULSE 70; RESP 18; TEMP 36.2; O2SAT 100
[2024-04-09 05:54] LABS: MANUAL DIFF FLAG NO
[2024-04-09 05:56] LABS: Basophils Absolute Auto 0.1 X10*3/uL (0.0-0.2); Basophils Percent Auto 0.9 % (0-2); Eosinophils Absolute Auto 0.1 X10*3/uL (0.0-0.4); Eosinophils Percent Auto 1.6 % (0-4); Hematocrit 24.4 % (42.0-52.0); Hemoglobin 8.1 g/dl (14.0-18.0); Imm Gran Abs Auto 0.03 X10*3/uL (0.00-0.03); Imm Gran Pct Auto 0.3 % (0.0-0.4); Lymphocytes Absolute Auto 1.5 X10*3/uL (1.2-4.9); Lymphocytes Percent Auto 16.6 % (20-40); Mean Corpuscular HGB Conc 33.2 g/dl (31.0-36.0); Mean Corpuscular Hemoglobin 29.3 pg (27.0-33.0); Mean Corpuscular Volume 88.4 fL (80.0-98.0); Mean Platelet Volume 9.4 fL (9.4-12.4); Monocytes Percent Auto 11.4 % (2-11); Neutrophils Absolute Auto 6.1 x10*3/uL (2.0-8.3); Neutrophils Percent Auto 69.2 % (45-73); Platelet Count 385 X10*3/uL (160-400); Red Blood Count 2.76 X10*6/uL (4.60-5.80); Red Cell Distribution Width 16.5 % (11.0-16.0); White Blood Count 8.8 X10*3/uL (4.8-10.8)
[2024-04-09 06:09] LABS: INTERNATIONAL NORM RATIO 1.5 (0.9-1.1); Prothrombin Time 17.8 SEC (11.1-13.3)
[2024-04-09 06:15] LABS: Alanine Aminotransferase 13 U/L (0-40); Albumin Level 3.5 g/dL (3.5-5.0); Alkaline Phosphatase 62 U/L (39-117); Anion Gap 12 (12-20); Aspartate Amino Transferase 13 U/L (5-37); Bilirubin Total 0.7 mg/dL (0.0-1.0); Blood Urea Nitrogen 8 mg/dL (9-16); Carbon Dioxide 25 mmol/L (22-29); Chloride 108 mmol/L (96-108); Creatinine Clr Calc Pharmacy 148.6; Estimated Glomerular Filt Rate > 60; Glucose Random 120 mg/dL (60-115); Potassium 4.1 mmol/L (3.3-5.1); Sodium 141 mmol/L (135-145); Total Protein 5.8 g/dL (6.5-8.0)
[2024-04-09] MEDS: Octreotide Acetate 100 MCG/ML AMPUL SUBCUT ×3 (07:46→23:20)
[2024-04-09 08:00] VITALS: BP 137/63; PULSE 69; RESP 18; TEMP 36.9; O2SAT 99
[2024-04-09] MEDS: Pantoprazole Sodium 40 MG/10 ML VIAL IVPUSH (10:29)
[2024-04-09] MEDS: 0.9 % Sodium Chloride Flush 3 ML SYRINGE IVFLUSH ×3 (10:34→23:40)
--- NOTE | 2024-04-09 12:06 | HO.PM.IMPN ---
Subjective Subjective Date of Service: 04/09/24 Interval History: Episode of black stool despite the absence of Plavix and Coumadin. Review of Systems Denies chest pain Denies shortness of breath Denies nausea vomiting diarrhea Denies fever chills Physical Exam Vital Signs: Vital Signs: Last Vital Signs Temp 98.4 F 04/09/24 08:00 Pulse 69 04/09/24 08:00 Resp 18 04/09/24 08:00 BP 137/63 04/09/24 08:00 Pulse Ox 99 04/09/24 08:00 O2 Del Method Room Air 04/09/24 08:00 BMI result Body Mass Index 23.0 Const: Other: Awake alert no acute distress. Appears fatigued Resp: Other: Clear to auscultation bilaterally no rales rhonchi or wheezes Cardio: Other: No S4; positive S1-S2; no S3 murmurs rubs or gallops GI: Other: Soft nontender nondistended normoactive bowel sounds Neuro: Other: Cranial nerves 2-12 grossly intact as tested. Motor is 5/5 all extremities. Sensation is intact. Cognition appropriate. Gait not observed Extrem: Other: No edema bilaterally Objective Data Active Medications Acetaminophen (Acetaminophen 325 Mg Tablet) 650 mg PO Q6H PRN PRN Reason: Pain, Mild (Pain Scale 1-3), fever or headache Al Hydroxide/Mg Hydroxide (Magnesium Hydrox/Alum Hydrox 30 Ml Oral.Susp) 30 ml PO Q4H PRN PRN Reason: Heartburn Calcium Carbonate (Calcium Carbonate 750 Mg Tab.Chew) 750 mg PO Q4H PRN PRN Reason: Heartburn Magnesium Hydroxide (Milk Of Magnesia 30 Ml Oral.Susp) 30 ml PO DAILY PRN PRN Reason: Constipation Melatonin (Melatonin 3 Mg Tablet) 6 mg PO BEDTIME PRN PRN Reason: Insomnia Octreotide Acetate (Octreotide Acetate 100 Mcg/Ml Ampul) 100 mcg SUBCUT Q8H [facility] Last Admin: 04/09/24 07:46 Dose: 100 mcg Documented By: IGNACIO Ondansetron HCl (Ondansetron Hcl 4 Mg/2 Ml Vial) 4 mg IVPUSH Q8H PRN PRN Reason: Nausea and Vomiting Oxycodone HCl (Oxycodone Hcl Immed Release 5 Mg Tablet) 10 mg PO Q4H PRN PRN Reason: Pain, Moderate(Pain Scale 4-6) Pantoprazole Sodium (Pantoprazole Sodium 40 Mg/10 Ml Vial) 40 mg IVPUSH DAILY [facility] Last Admin: 04/09/24 10:29 Dose: 40 mg Documented By: IGNACIO Sodium Chloride (0.9 % Sodium Chloride Flush 3 Ml Syringe) 3 ml IVFLUSH QSHIFT [facility] Last Admin: 04/09/24 10:34 Dose: 3 ml Documented By: IGNACIO Labs 04/09/24 05:41 04/09/24 05:41 Labs: Laboratory Results - last 24 hr 04/08/24 04/09/24 19:17 05:41 MCV 88.4 MCH 29.3 MCHC 33.2 RDW 16.5 H Plt Count 385 MPV 9.4 Immature Gran % (Auto) 0.3 Neut % (Auto) 69.2 Lymph % (Auto) 16.6 L [place] % (Auto) 11.4 H Eos % (Auto) 1.6 Baso % (Auto) 0.9 Lymph # (Auto) 1.5 [place] # (Auto) 1.0 Eos # (Auto) 0.1 Baso # (Auto) 0.1 Abs Immat Gran (auto) 0.03 Absolute Neuts (auto) 6.1 Absolute Nucleated RBC 0.000 Nucleated RBC % (auto) 0.0 PT 17.8 H D INR 1.5 H Anion Gap 12 Estim Creat Clear Calc 148.6 Estimated GFR > 60 Random Glucose 120 H Calcium 9.0 Total Bilirubin 0.7 AST 13 ALT 13 Alkaline Phosphatase 62 Total Protein 5.8 L Albumin 3.5 Stool Occult Blood POSITIVE Assessment and Plan (1) ABLA (acute blood loss anemia): Status: Acute (2) Mesenteric thrombosis: Status: Acute Plan 48-year-old male with past medical history significant for mesenteric ischemia status post SMA and celiac artery stenting complicated by thrombosis status post radical hemicolectomy on Coumadin and Plavix presents with dark tarry stools and worsening fatigue. Recently admitted 03/30/2024 through 04/02/2024. (please see notes for details). ER workup consistent with a hemoglobin less than 6 for which he is being transfused 2 units of packed cell. He will be admitted for further transfusion and GI consult 1. GI bleed with acute blood loss anemia -good response to transfusion -follow CBC in a.m. -Octreotide 100 mcg subcu q.8 hours..black stools overnight -advance diet -consult hematology. .. Question thalidomide. Will discuss restarting Coumadin versus Plavix as on no anticoagulation at present 2. CAD -stable and well compensated at this time -continue outpatient therapies 3. History of mesenteric stent thrombosis -continue Coumadin as ordered -daily INR; adjust as indicated Full Code Coumadin Patient requires at least 2 midnights going forward for transfusion to correct acute blood loss anemia and further GI workup for cause. This can not be achieved a lesser acute setting Quality Stroke Does the patient have a stroke diagnosis?: No VTE Prior VTE?: No VTE Risk Level:: Medical - moderate - high VTE Device Contraindication: Treatment Not Indicated VTE Drug Contraindication: N/A - Med Ordered
[2024-04-09 15:20] VITALS: BP 127/54; PULSE 82; RESP 20; TEMP 36.9; O2SAT 100
[2024-04-09] MEDS: Warfarin Sodium 5 MG TABLET PO (17:43)
[2024-04-09] MEDS: Aspirin Enteric Coated 81 MG TABLET.DR PO (17:45)
[2024-04-09 19:32] VITALS: BP 136/75; PULSE 75; RESP 20; TEMP 36.9; O2SAT 99
[2024-04-10 03:19] VITALS: BP 124/56; PULSE 71; RESP 14; TEMP 36.1; O2SAT 100
[2024-04-10 06:28] LABS: MANUAL DIFF FLAG NO
[2024-04-10 06:33] LABS: Basophils Absolute Auto 0.1 X10*3/uL (0.0-0.2); Eosinophils Absolute Auto 0.2 X10*3/uL (0.0-0.4); Eosinophils Percent Auto 2.1 % (0-4); Hematocrit 26.6 % (42.0-52.0); Hemoglobin 8.5 g/dl (14.0-18.0); Imm Gran Abs Auto 0.04 X10*3/uL (0.00-0.03); Imm Gran Pct Auto 0.6 % (0.0-0.4); Lymphocytes Absolute Auto 1.6 X10*3/uL (1.2-4.9); Lymphocytes Percent Auto 22.9 % (20-40); Mean Corpuscular Hemoglobin 28.1 pg (27.0-33.0); Mean Corpuscular Volume 87.8 fL (80.0-98.0); Mean Platelet Volume 9.4 fL (9.4-12.4); Monocytes Absolute Auto 0.8 X10*3/uL (0.1-1.2); Monocytes Percent Auto 11.6 % (2-11); Neutrophils Absolute Auto 4.4 x10*3/uL (2.0-8.3); Neutrophils Percent Auto 61.8 % (45-73); Platelet Count 444 X10*3/uL (160-400); Red Blood Count 3.03 X10*6/uL (4.60-5.80); Red Cell Distribution Width 16.4 % (11.0-16.0)
[2024-04-10] MEDS: Octreotide Acetate 100 MCG/ML AMPUL SUBCUT ×3 (06:34→23:14)
[2024-04-10 06:53] LABS: Alanine Aminotransferase 12 U/L (0-40); Albumin Level 3.6 g/dL (3.5-5.0); Alkaline Phosphatase 64 U/L (39-117); Anion Gap 12 (12-20); Aspartate Amino Transferase 8 U/L (5-37); Bilirubin Total 0.6 mg/dL (0.0-1.0); Blood Urea Nitrogen 9 mg/dL (9-16); Carbon Dioxide 25 mmol/L (22-29); Chloride 107 mmol/L (96-108); Creatinine Clr Calc Pharmacy 142.2; Estimated Glomerular Filt Rate > 60; Glucose Random 115 mg/dL (60-115); Potassium 4.1 mmol/L (3.3-5.1); Sodium 140 mmol/L (135-145); Total Protein 5.9 g/dL (6.5-8.0)
[2024-04-10 06:59] LABS: INTERNATIONAL NORM RATIO 1.1 (0.9-1.1); Prothrombin Time 13.5 SEC (11.1-13.3)
[2024-04-10 07:41] VITALS: BP 111/62; PULSE 67; RESP 18; TEMP 36.3; O2SAT 98
[2024-04-10] MEDS: Enoxaparin Sodium 80 MG/0.8 ML SYRINGE SUBCUT (07:58)
[2024-04-10] MEDS: Aspirin Enteric Coated 81 MG TABLET.DR PO (07:59)
[2024-04-10] MEDS: 0.9 % Sodium Chloride Flush 3 ML SYRINGE IVFLUSH ×3 (07:59→23:17)
[2024-04-10] MEDS: Pantoprazole Sodium 40 MG/10 ML VIAL IVPUSH (07:59)
[2024-04-10 09:35] LABS: Hematocrit 26.5 % (42.0-52.0); Hemoglobin 8.5 g/dl (14.0-18.0); Mean Corpuscular HGB Conc 32.1 g/dl (31.0-36.0); Mean Corpuscular Hemoglobin 28.7 pg (27.0-33.0); Mean Corpuscular Volume 89.5 fL (80.0-98.0); Mean Platelet Volume 9.5 fL (9.4-12.4); Platelet Count 482 X10*3/uL (160-400); Red Blood Count 2.96 X10*6/uL (4.60-5.80); Red Cell Distribution Width 16.5 % (11.0-16.0); White Blood Count 7.7 X10*3/uL (4.8-10.8)
[2024-04-10 09:41] LABS: INTERNATIONAL NORM RATIO 1.2 (0.9-1.1); Prothrombin Time 14.1 SEC (11.1-13.3)
[2024-04-10 09:43] LABS: Partial Thromboplastin Time 36.2 SEC (26.0-36.8)
--- NOTE | 2024-04-10 10:38 | HO.PM.IMPN ---
Subjective Subjective Date of Service: 04/10/24 Interval History: No further black stools since yesterday. Continues to be pain-free tolerating diet Review of Systems Denies chest pain Denies shortness of breath Denies nausea vomiting diarrhea Denies fever chills Physical Exam Vital Signs: Vital Signs: Last Vital Signs Temp 97.4 F 04/10/24 07:41 Pulse 67 04/10/24 07:41 Resp 18 04/10/24 07:41 BP 111/62 04/10/24 07:41 Pulse Ox 98 04/10/24 07:41 O2 Del Method Room Air 04/10/24 07:41 BMI result Body Mass Index 23.0 Const: Other: Awake alert no acute distress. Appears fatigued Resp: Other: Clear to auscultation bilaterally no rales rhonchi or wheezes Cardio: Other: No S4; positive S1-S2; no S3 murmurs rubs or gallops GI: Other: Soft nontender nondistended normoactive bowel sounds Neuro: Other: Cranial nerves 2-12 grossly intact as tested. Motor is 5/5 all extremities. Sensation is intact. Cognition appropriate. Gait not observed Extrem: Other: No edema bilaterally Objective Data Active Medications Acetaminophen (Acetaminophen 325 Mg Tablet) 650 mg PO Q6H PRN PRN Reason: Pain, Mild (Pain Scale 1-3), fever or headache Al Hydroxide/Mg Hydroxide (Magnesium Hydrox/Alum Hydrox 30 Ml Oral.Susp) 30 ml PO Q4H PRN PRN Reason: Heartburn Aspirin (Aspirin Enteric Coated 81 Mg Tablet.Dr) 81 mg PO DAILY [facility] Last Admin: 04/10/24 07:59 Dose: 81 mg Documented By: GERI Calcium Carbonate (Calcium Carbonate 750 Mg Tab.Chew) 750 mg PO Q4H PRN PRN Reason: Heartburn Magnesium Hydroxide (Milk Of Magnesia 30 Ml Oral.Susp) 30 ml PO DAILY PRN PRN Reason: Constipation Melatonin (Melatonin 3 Mg Tablet) 6 mg PO BEDTIME PRN PRN Reason: Insomnia Octreotide Acetate (Octreotide Acetate 100 Mcg/Ml Ampul) 100 mcg SUBCUT Q8H [facility] Last Admin: 04/10/24 06:34 Dose: 100 mcg Documented By: GHANSHYAM Ondansetron HCl (Ondansetron Hcl 4 Mg/2 Ml Vial) 4 mg IVPUSH Q8H PRN PRN Reason: Nausea and Vomiting Oxycodone HCl (Oxycodone Hcl Immed Release 5 Mg Tablet) 10 mg PO Q4H PRN PRN Reason: Pain, Moderate(Pain Scale 4-6) Pantoprazole Sodium (Pantoprazole Sodium 40 Mg/10 Ml Vial) 40 mg IVPUSH DAILY [facility] Last Admin: 04/10/24 07:59 Dose: 40 mg Documented By: GERI Sodium Chloride (0.9 % Sodium Chloride Flush 3 Ml Syringe) 3 ml IVFLUSH QSHIFT [facility] Last Admin: 04/10/24 07:59 Dose: 3 ml Documented By: GERI Warfarin Sodium (Warfarin Sodium 5 Mg Tablet) 5 mg PO DAILY@1800 [facility] Last Admin: 04/09/24 17:43 Dose: 5 mg Documented By: SHABBIRTRJessica Labs 04/10/24 09:01 04/10/24 05:49 Labs: Laboratory Results - last 24 hr 04/10/24 04/10/24 05:49 09:01 MCV 87.8 89.5 MCH 28.1 28.7 MCHC 32.0 32.1 RDW 16.4 H 16.5 H Plt Count 444 H 482 H MPV 9.4 9.5 Immature Gran % (Auto) 0.6 H Neut % (Auto) 61.8 Lymph % (Auto) 22.9 [place] % (Auto) 11.6 H Eos % (Auto) 2.1 Baso % (Auto) 1.0 Lymph # (Auto) 1.6 [place] # (Auto) 0.8 Eos # (Auto) 0.2 Baso # (Auto) 0.1 Abs Immat Gran (auto) 0.04 H Absolute Neuts (auto) 4.4 Absolute Nucleated RBC 0.000 0.000 Nucleated RBC % (auto) 0.0 0.0 PT 13.5 H D 14.1 H INR 1.1 1.2 H APTT 36.2 Anion Gap 12 Estim Creat Clear Calc 142.2 Estimated GFR > 60 Random Glucose 115 Calcium 9.0 Total Bilirubin 0.6 AST 8 ALT 12 Alkaline Phosphatase 64 Total Protein 5.9 L Albumin 3.6 Assessment and Plan (1) ABLA (acute blood loss anemia): Status: Acute (2) AVM (arteriovenous malformation) of duodenum, acquired with hemorrhage: Status: Acute Plan 48-year-old male with past medical history significant for mesenteric ischemia status post SMA and celiac artery stenting complicated by thrombosis status post radical hemicolectomy on Coumadin and Plavix presents with dark tarry stools and worsening fatigue. Recently admitted 03/30/2024 through 04/02/2024. (please see notes for details). ER workup consistent with a hemoglobin less than 6 for which he is being transfused 2 units of packed cell. He will be admitted for further transfusion and GI consult 1. GI bleed with acute blood loss anemia -good response to transfusion.. No further black stools -follow CBC in a.m. -Octreotide 100 mcg subcu q.8 hours -INR remains subtherapeutic. Has history of mesenteric stent clotting. Discussed risks benefits with patient. Will bridge with Lovenox until INR therapeutic. Risk of bleeding less than risk of stent clotting/closure. We will follow CBC closely and transfuse as indicated. GI working on obtaining thalidomide. 2. CAD -stable and well compensated at this time -continue outpatient therapies 3. History of mesenteric stent thrombosis -continue Coumadin as ordered.. Lovenox bridge -daily INR; adjust as indicated Full Code Coumadin Patient will require ongoing hospitalization to follow GI bleed while awaiting more definitive therapies and ongoing specialist consultation Quality Stroke Does the patient have a stroke diagnosis?: No VTE Prior VTE?: No VTE Risk Level:: Medical - moderate - high VTE Device Contraindication: Treatment Not Indicated VTE Drug Contraindication: N/A - Med Ordered
[2024-04-10 15:00] VITALS: BP 132/69; PULSE 70; RESP 18; TEMP 36.4; O2SAT 99
[2024-04-10] MEDS: Warfarin Sodium 5 MG TABLET PO (17:43)
[2024-04-10 19:45] VITALS: BP 124/60; PULSE 81; RESP 16; TEMP 36.9; O2SAT 97
[2024-04-11 02:48] VITALS: BP 122/63; PULSE 77; RESP 14; TEMP 36.5; O2SAT 98
[2024-04-11] MEDS: Octreotide Acetate 100 MCG/ML AMPUL SUBCUT ×3 (06:41→23:15)
[2024-04-11 07:18] LABS: Hematocrit 25.5 % (42.0-52.0); Mean Corpuscular HGB Conc 31.4 g/dl (31.0-36.0); Mean Corpuscular Hemoglobin 27.8 pg (27.0-33.0); Mean Corpuscular Volume 88.5 fL (80.0-98.0); Mean Platelet Volume 9.7 fL (9.4-12.4); NRBC Pct Auto 0.3 /100WBC (0.0-0.2); Platelet Count 493 X10*3/uL (160-400); Red Blood Count 2.88 X10*6/uL (4.60-5.80); Red Cell Distribution Width 16.5 % (11.0-16.0); White Blood Count 6.4 X10*3/uL (4.8-10.8)
[2024-04-11 07:25] LABS: INTERNATIONAL NORM RATIO 1.2 (0.9-1.1); Prothrombin Time 15.1 SEC (11.1-13.3)
[2024-04-11 07:35] VITALS: BP 113/67; PULSE 76; RESP 18; TEMP 36.4; O2SAT 97
[2024-04-11] MEDS: 0.9 % Sodium Chloride Flush 3 ML SYRINGE IVFLUSH ×3 (07:39→23:19)
[2024-04-11] MEDS: Pantoprazole Sodium 40 MG/10 ML VIAL IVPUSH (07:39)
[2024-04-11] MEDS: Aspirin Enteric Coated 81 MG TABLET.DR PO (07:39)
--- NOTE | 2024-04-11 10:52 | P.PNIM_ITS ---
Subjective Subjective Date of Service: 04/11/24 Interval History: No acute events overnight. Tolerating Lovenox bridge thus far. Does note 1 additional black stool yesterday Review of Systems Denies chest pain Denies shortness of breath Denies nausea vomiting diarrhea Denies fever chills Physical Exam 2 Vital Signs: Vital Signs: Last Vital Signs Temp 97.5 F 04/11/24 07:35 Pulse 76 04/11/24 07:35 Resp 18 04/11/24 07:35 BP 113/67 04/11/24 07:35 Pulse Ox 97 04/11/24 07:35 O2 Del Method Room Air 04/11/24 07:35 BMI result Body Mass Index 23.0 Const: Other: Awake alert no acute distress. Appears fatigued Resp: Other: Clear to auscultation bilaterally no rales rhonchi or wheezes Cardio: Other: No S4; positive S1-S2; no S3 murmurs rubs or gallops GI: Other: Soft nontender nondistended normoactive bowel sounds Neuro: Other: Cranial nerves 2-12 grossly intact as tested. Motor is 5/5 all extremities. Sensation is intact. Cognition appropriate. Gait not observed Extrem: Other: No edema bilaterally Objective Data Active Medications Acetaminophen (Acetaminophen 325 Mg Tablet) 650 mg PO Q6H PRN PRN Reason: Pain, Mild (Pain Scale 1-3), fever or headache Al Hydroxide/Mg Hydroxide (Magnesium Hydrox/Alum Hydrox 30 Ml Oral.Susp) 30 ml PO Q4H PRN PRN Reason: Heartburn Aspirin (Aspirin Enteric Coated 81 Mg Tablet.) 81 mg PO DAILY [facility] Last Admin: 04/11/24 07:39 Dose: 81 mg Documented By: GERI Calcium Carbonate (Calcium Carbonate 750 Mg Tab.Chew) 750 mg PO Q4H PRN PRN Reason: Heartburn Magnesium Hydroxide (Milk Of Magnesia 30 Ml Oral.Susp) 30 ml PO DAILY PRN PRN Reason: Constipation Melatonin (Melatonin 3 Mg Tablet) 6 mg PO BEDTIME PRN PRN Reason: Insomnia Octreotide Acetate (Octreotide Acetate 100 Mcg/Ml Ampul) 100 mcg SUBCUT Q8H [facility] Last Admin: 04/11/24 06:41 Dose: 100 mcg Documented By: GHANSHYAM Ondansetron HCl (Ondansetron Hcl 4 Mg/2 Ml Vial) 4 mg IVPUSH Q8H PRN PRN Reason: Nausea and Vomiting Oxycodone HCl (Oxycodone Hcl Immed Release 5 Mg Tablet) 10 mg PO Q4H PRN PRN Reason: Pain, Moderate(Pain Scale 4-6) Pantoprazole Sodium (Pantoprazole Sodium 40 Mg/10 Ml Vial) 40 mg IVPUSH DAILY [facility] Last Admin: 04/11/24 07:39 Dose: 40 mg Documented By: GERI Sodium Chloride (0.9 % Sodium Chloride Flush 3 Ml Syringe) 3 ml IVFLUSH QSHIFT [facility] Last Admin: 04/11/24 07:39 Dose: 3 ml Documented By: GERI Warfarin Sodium (Warfarin Sodium 5 Mg Tablet) 5 mg PO DAILY@1800 [facility] Last Admin: 04/10/24 17:43 Dose: 5 mg Documented By: GERI Labs 04/11/24 06:09 04/10/24 05:49 Labs: Laboratory Results - last 24 hr 04/11/24 04/11/24 06:09 07:05 MCV 88.5 MCH 27.8 MCHC 31.4 RDW 16.5 H Plt Count 493 H MPV 9.7 Absolute Nucleated RBC 0.020 H Nucleated RBC % (auto) 0.3 H PT 15.1 H INR 1.2 H Assessment and Plan (1) ABLA (acute blood loss anemia): Status: Acute (2) AVM (arteriovenous malformation) of duodenum, acquired with hemorrhage: Status: Acute Plan 48-year-old male with past medical history significant for mesenteric ischemia status post SMA and celiac artery stenting complicated by thrombosis status post radical hemicolectomy on Coumadin and Plavix presents with dark tarry stools and worsening fatigue. Recently admitted 03/30/2024 through 04/02/2024. (please see notes for details). ER workup consistent with a hemoglobin less than 6 for which he is being transfused 2 units of packed cell. He will be admitted for further transfusion and GI consult 1. GI bleed with acute blood loss anemia -additional dark stools noted by patient -follow CBC in a.m... Will type and crossmatch as well -Octreotide 100 mcg subcu q.8 hours -INR remains subtherapeutic. Has history of mesenteric stent clotting. Discussed risks benefits with patient. Will bridge with Lovenox until INR therapeutic. Risk of bleeding less than risk of stent clotting/closure. We will follow CBC closely and transfuse as indicated. GI working on obtaining thalidomide. 2. CAD -stable and well compensated at this time -continue outpatient therapies 3. History of mesenteric stent thrombosis -continue Coumadin as ordered.. Lovenox bridge -daily INR; adjust as indicated Full Code Coumadin Patient will require ongoing hospitalization to follow GI bleed while awaiting more definitive therapies and ongoing specialist consultation Quality Stroke Does the patient have a stroke diagnosis?: No VTE Prior VTE?: No VTE Risk Level:: Medical - moderate - high VTE Device Contraindication: Treatment Not Indicated VTE Drug Contraindication: N/A - Med Ordered
[2024-04-11] MEDS: Enoxaparin Sodium 80 MG/0.8 ML SYRINGE SUBCUT (12:34)
[2024-04-11 15:28] VITALS: BP 120/68; PULSE 71; RESP 18; TEMP 36.6; O2SAT 99
[2024-04-11] MEDS: Warfarin Sodium 7.5 MG TABLET PO (17:02)
[2024-04-11 19:48] VITALS: BP 126/77; PULSE 83; RESP 20; TEMP 36.7; O2SAT 100
[2024-04-12] VITALS (7 sets, daily range): BP systolic 113–124; BP diastolic 57–68; PULSE 68–92; RESP 14–20; TEMP 36.3–37.1; O2SAT 99–100
[2024-04-12] MEDS: Enoxaparin Sodium 80 MG/0.8 ML SYRINGE SUBCUT ×2 (00:34→12:39)
[2024-04-12 06:03] LABS: INTERNATIONAL NORM RATIO 1.3 (0.9-1.1); Prothrombin Time 15.4 SEC (11.1-13.3)
[2024-04-12] MEDS: Octreotide Acetate 100 MCG/ML AMPUL SUBCUT ×2 (06:35→14:36)
[2024-04-12] MEDS: 0.9 % Sodium Chloride Flush 3 ML SYRINGE IVFLUSH (09:20)
[2024-04-12] MEDS: Aspirin Enteric Coated 81 MG TABLET.DR PO (09:20)
[2024-04-12] MEDS: Pantoprazole Sodium 40 MG/10 ML VIAL IVPUSH (09:20)
--- NOTE | 2024-04-12 11:48 | HO.PM.IMPN ---
Subjective Subjective Date of Service: 04/12/24 Interval History: Being followed for recurrent episodes of anemia. Complaining of persistent black stools, no hematemesis, no abdominal pain, no bright red blood per rectum tolerating diet, complaining of discomfort at site of Lovenox shots. Review of Systems All other systems are reviewed and are negative. Physical Exam Vital Signs: Vital Signs: Last Vital Signs Temp 97.7 F 04/12/24 07:59 Pulse 72 04/12/24 07:59 Resp 16 04/12/24 07:59 BP 113/61 04/12/24 07:59 Pulse Ox 100 04/12/24 07:59 O2 Del Method Room Air 04/12/24 07:59 BMI result Body Mass Index 23.0 Const: Other: General resting comfortably in no acute distress. Neck is supple no JVD. CVS regular rate rhythm, Respiratory lungs clear to auscultation, no respiratory distress, no wheeze, no rhonchi. Gastrointestinal abdomen soft, multiple areas of ecchymosis, bowel sounds audible, no guarding , no rigidity. Extremities no edema. Neuro nonfocal patient moving all 4 extremity speech clear. Skin no rash Psych appropriate affect. Objective Data Active Medications Acetaminophen (Acetaminophen 325 Mg Tablet) 650 mg PO Q6H PRN PRN Reason: Pain, Mild (Pain Scale 1-3), fever or headache Al Hydroxide/Mg Hydroxide (Magnesium Hydrox/Alum Hydrox 30 Ml Oral.Susp) 30 ml PO Q4H PRN PRN Reason: Heartburn Aspirin (Aspirin Enteric Coated 81 Mg Tablet.Dr) 81 mg PO DAILY [facility] Last Admin: 04/12/24 09:20 Dose: 81 mg Documented By: LISA Calcium Carbonate (Calcium Carbonate 750 Mg Tab.Chew) 750 mg PO Q4H PRN PRN Reason: Heartburn Enoxaparin Sodium (Enoxaparin Sodium 80 Mg/0.8 Ml Syringe) 80 mg SUBCUT Q12H [facility] Last Admin: 04/12/24 00:34 Dose: 80 mg Documented By: GHANSHYAM Magnesium Hydroxide (Milk Of Magnesia 30 Ml Oral.Susp) 30 ml PO DAILY PRN PRN Reason: Constipation Melatonin (Melatonin 3 Mg Tablet) 6 mg PO BEDTIME PRN PRN Reason: Insomnia Octreotide Acetate (Octreotide Acetate 100 Mcg/Ml Ampul) 100 mcg SUBCUT Q8H [facility] Last Admin: 04/12/24 06:35 Dose: 100 mcg Documented By: GHANSHYAM Ondansetron HCl (Ondansetron Hcl 4 Mg/2 Ml Vial) 4 mg IVPUSH Q8H PRN PRN Reason: Nausea and Vomiting Oxycodone HCl (Oxycodone Hcl Immed Release 5 Mg Tablet) 10 mg PO Q4H PRN PRN Reason: Pain, Moderate(Pain Scale 4-6) Pantoprazole Sodium (Pantoprazole Sodium 40 Mg/10 Ml Vial) 40 mg IVPUSH DAILY [facility] Last Admin: 04/12/24 09:20 Dose: 40 mg Documented By: LISA Sodium Chloride (0.9 % Sodium Chloride Flush 3 Ml Syringe) 3 ml IVFLUSH QSHIFT [facility] Last Admin: 04/12/24 09:20 Dose: 3 ml Documented By: LISA Labs 04/11/24 06:09 04/10/24 05:49 Labs: Laboratory Results - last 24 hr 04/12/24 05:44 Hold Purple Top SEE NOTE PT 15.4 H INR 1.3 H Blood Type O Positive Antibody Screen NEGATIVE Assessment and Plan (1) ABLA (acute blood loss anemia): Status: Acute (2) AVM (arteriovenous malformation) of duodenum, acquired with hemorrhage: Status: Acute Plan 48-year-old male with past medical history significant for mesenteric ischemia status post SMA and celiac artery stenting complicated by thrombosis status post radical hemicolectomy on Coumadin and Plavix presents with dark tarry stools and worsening fatigue. Recently admitted 03/30/2024 through 04/02/2024. (please see notes for details). ER workup consistent with a hemoglobin less than 6 for which he is being transfused 2 units of packed cell. He will be admitted for further transfusion and GI consult 1. GI bleed with acute blood loss anemia -continued to have black stools, repeat hematocrit this morning pend,hct has been stable in last few days. Likely bleed from AVM. -s/p upper endoscopy and colonoscopy 02/01 that showed mild gastritis,, erosive esophagitis, 3 small AVM noted in duodenal, ablated with APC, jejunum two small AVM noted ablated with APC, colonoscopy showed grade 1 internal hemorrhoids small -continue Octreotide 100 mcg subcu q.8 hours -INR remains subtherapeutic 1.3, Has history of mesenteric stent clotting. Discussed risks benefits with patient,on Lovenox subq communicate well low 1 Magic green consoles until INR therapeutic. Risk of bleeding less than risk of stent clotting/closure. will follow CBC closely and transfuse as indicated. Low iron saturation will transfuse iron sucrose x 3 days GI working on obtaining thalidomide, case discussed with Dr. Garduno he recommend to obtain bleeding scan if noted to have significant drop in hematocrit . 2. CAD -stable and well compensated at this time -continue outpatient therapies 3. History of mesenteric stent thrombosis -INR 1.3, continue Coumadin and Lovenox bridge and continue aspirin -daily INR; adjust as indicated 4. Tobacco use disorder counseling done. Full Code Coumadin/Lovenox Patient will require ongoing hospitalization to follow GI bleed while awaiting more definitive therapies and ongoing specialist consultation Quality Stroke Does the patient have a stroke diagnosis?: No VTE Prior VTE?: No VTE Risk Level:: Medical - moderate - high VTE Device Contraindication: Treatment Not Indicated VTE Drug Contraindication: N/A - Med Ordered
[2024-04-12 12:14] LABS: Hematocrit 23.6 % (42.0-52.0); Hemoglobin 7.4 g/dl (14.0-18.0); Mean Corpuscular HGB Conc 31.4 g/dl (31.0-36.0); Mean Corpuscular Hemoglobin 27.9 pg (27.0-33.0); Mean Corpuscular Volume 89.1 fL (80.0-98.0); Mean Platelet Volume 9.2 fL (9.4-12.4); Platelet Count 496 X10*3/uL (160-400); Red Blood Count 2.65 X10*6/uL (4.60-5.80); Red Cell Distribution Width 16.8 % (11.0-16.0); White Blood Count 7.7 X10*3/uL (4.8-10.8)
[2024-04-12] MEDS: Iron Sucrose Complex 400 MG in 0.9 % Sodium Chloride 250 ML 180 MG IV (13:06)
--- NOTE | 2024-04-12 13:58 | MHC.CM.PN ---
per rounds pt not medically ready for dc plan remains home no servies
[2024-04-12] MEDS: Warfarin Sodium 10 MG TABLET PO (18:12)
[2024-04-13] MEDS: Octreotide Acetate 100 MCG/ML AMPUL SUBCUT ×4 (00:29→23:07)
[2024-04-13] MEDS: 0.9 % Sodium Chloride Flush 3 ML SYRINGE IVFLUSH ×3 (00:30→23:07)
[2024-04-13] MEDS: Enoxaparin Sodium 80 MG/0.8 ML SYRINGE SUBCUT ×3 (00:31→23:06)
[2024-04-13 02:34] VITALS: RESP 16
[2024-04-13 03:01] VITALS: BP 118/56; PULSE 71; RESP 18; TEMP 36.3; O2SAT 98
[2024-04-13 06:49] LABS: MANUAL DIFF FLAG NO
[2024-04-13 07:04] LABS: INTERNATIONAL NORM RATIO 1.5 (0.9-1.1); Prothrombin Time 18.4 SEC (11.1-13.3)
[2024-04-13 07:22] LABS: Basophils Absolute Auto 0.1 X10*3/uL (0.0-0.2); Eosinophils Absolute Auto 0.1 X10*3/uL (0.0-0.4); Eosinophils Percent Auto 1.7 % (0-4); Hematocrit 26.1 % (42.0-52.0); Hemoglobin 8.6 g/dl (14.0-18.0); Imm Gran Abs Auto 0.06 X10*3/uL (0.00-0.03); Imm Gran Pct Auto 0.7 % (0.0-0.4); Lymphocytes Absolute Auto 1.7 X10*3/uL (1.2-4.9); Lymphocytes Percent Auto 21.1 % (20-40); Mean Corpuscular Hemoglobin 28.5 pg (27.0-33.0); Mean Corpuscular Volume 86.4 fL (80.0-98.0); Mean Platelet Volume 9.7 fL (9.4-12.4); Monocytes Percent Auto 12.4 % (2-11); Neutrophils Absolute Auto 5.2 x10*3/uL (2.0-8.3); Neutrophils Percent Auto 63.1 % (45-73); Platelet Count 460 X10*3/uL (160-400); Red Blood Count 3.02 X10*6/uL (4.60-5.80); Red Cell Distribution Width 16.4 % (11.0-16.0); White Blood Count 8.3 X10*3/uL (4.8-10.8)
[2024-04-13 07:26] VITALS: BP 118/57; PULSE 74; RESP 16; TEMP 36.5; O2SAT 100
[2024-04-13] MEDS: Pantoprazole Sodium 40 MG/10 ML VIAL IVPUSH (07:58)
[2024-04-13] MEDS: Aspirin Enteric Coated 81 MG TABLET.DR PO (07:58)
[2024-04-13] MEDS: Iron Sucrose Complex 400 MG in 0.9 % Sodium Chloride 250 ML 180 MG IV (12:49)
--- NOTE | 2024-04-13 13:05 | HO.PM.IMPN ---
Subjective Subjective Date of Service: 04/13/24 Interval History: Being followed for anemia/GI bleed Had 1 black colored stool this morning, no hematemesis, no melena, no abdominal pain, except pain at site of Lovenox shot, no acute events overnight, hematocrit improved after 1 unit of packed RBC. Review of Systems All other system are reviewed and are negative. Physical Exam Vital Signs: Vital Signs: Last Vital Signs Temp 97.7 F 04/13/24 07:26 Pulse 74 04/13/24 07:26 Resp 16 04/13/24 07:26 BP 118/57 L 04/13/24 07:26 Pulse Ox 100 04/13/24 07:26 O2 Del Method Room Air 04/13/24 07:26 BMI result Body Mass Index 23.0 Const: Other: General resting comfortably in no acute distress. Neck is supple no JVD. CVS regular rate rhythm, Respiratory lungs clear to auscultation, no respiratory distress, no wheeze, no rhonchi. Gastrointestinal abdomen soft, multiple areas of ecchymosis, bowel sounds audible, no guarding , no rigidity. Extremities no edema. Neuro non focal Skin no rash Psych appropriate affect. Objective Data Active Medications Acetaminophen (Acetaminophen 325 Mg Tablet) 650 mg PO Q6H PRN PRN Reason: Pain, Mild (Pain Scale 1-3), fever or headache Al Hydroxide/Mg Hydroxide (Magnesium Hydrox/Alum Hydrox 30 Ml Oral.Susp) 30 ml PO Q4H PRN PRN Reason: Heartburn Aspirin (Aspirin Enteric Coated 81 Mg Tablet.) 81 mg PO DAILY [facility] Last Admin: 04/13/24 07:58 Dose: 81 mg Documented By: LISA Calcium Carbonate (Calcium Carbonate 750 Mg Tab.Chew) 750 mg PO Q4H PRN PRN Reason: Heartburn Enoxaparin Sodium (Enoxaparin Sodium 80 Mg/0.8 Ml Syringe) 80 mg SUBCUT Q12H [facility] Last Admin: 04/13/24 12:49 Dose: 80 mg Documented By: LISA Iron Sucrose 400 mg/ Sodium (Chloride) 270 mls @ 180 mls/hr IV Q24H [facility] Last Admin: 04/13/24 12:49 Dose: 180 mls/hr Documented By: LISA Magnesium Hydroxide (Milk Of Magnesia 30 Ml Oral.Susp) 30 ml PO DAILY PRN PRN Reason: Constipation Melatonin (Melatonin 3 Mg Tablet) 6 mg PO BEDTIME PRN PRN Reason: Insomnia Octreotide Acetate (Octreotide Acetate 100 Mcg/Ml Ampul) 100 mcg SUBCUT Q8H [facility] Last Admin: 04/13/24 07:58 Dose: 100 mcg Documented By: LISA Ondansetron HCl (Ondansetron Hcl 4 Mg/2 Ml Vial) 4 mg IVPUSH Q8H PRN PRN Reason: Nausea and Vomiting Oxycodone HCl (Oxycodone Hcl Immed Release 5 Mg Tablet) 10 mg PO Q4H PRN PRN Reason: Pain, Moderate(Pain Scale 4-6) Pantoprazole Sodium (Pantoprazole Sodium 40 Mg/10 Ml Vial) 40 mg IVPUSH DAILY [facility] Last Admin: 04/13/24 07:58 Dose: 40 mg Documented By: LISA Sodium Chloride (0.9 % Sodium Chloride Flush 3 Ml Syringe) 3 ml IVFLUSH QSHIFT [facility] Last Admin: 04/13/24 07:59 Dose: 3 ml Documented By: LISA Warfarin Sodium (Warfarin Sodium 10 Mg Tablet) 10 mg PO DAILY@1800 [facility] Last Admin: 04/12/24 18:12 Dose: 10 mg Documented By: LISA Labs 04/13/24 05:50 04/10/24 05:49 Labs: Laboratory Results - last 24 hr 04/12/24 04/13/24 05:44 05:50 MCV 86.4 MCH 28.5 MCHC 33.0 RDW 16.4 H Plt Count 460 H MPV 9.7 Immature Gran % (Auto) 0.7 H Neut % (Auto) 63.1 Lymph % (Auto) 21.1 [place] % (Auto) 12.4 H Eos % (Auto) 1.7 Baso % (Auto) 1.0 Lymph # (Auto) 1.7 [place] # (Auto) 1.0 Eos # (Auto) 0.1 Baso # (Auto) 0.1 Abs Immat Gran (auto) 0.06 H Absolute Neuts (auto) 5.2 Absolute Nucleated RBC 0.000 Nucleated RBC % (auto) 0.0 PT 18.4 H INR 1.5 H Blood Type O Positive Antibody Screen NEGATIVE Crossmatch See Detail Assessment and Plan (1) ABLA (acute blood loss anemia): Status: Acute (2) AVM (arteriovenous malformation) of duodenum, acquired with hemorrhage: Status: Acute Plan 48-year-old male with past medical history significant for mesenteric ischemia status post SMA and celiac artery stenting complicated by thrombosis status post radical hemicolectomy on Coumadin and Plavix presents with dark tarry stools and worsening fatigue. Recently admitted 03/30/2024 through 04/02/2024. (please see notes for details). ER workup consistent with a hemoglobin less than 6 for which he is being transfused 2 units of packed cell. He will be admitted for further transfusion and GI consult 1. GI bleed with acute blood loss anemia -continued to have black stools, Likely bleed from AVM. Plavix discontinued. -s/p upper endoscopy and colonoscopy 02/01 that showed mild gastritis,, erosive esophagitis, 3 small AVM noted in duodenal, ablated with APC, jejunum two small AVM noted ablated with APC, colonoscopy showed grade 1 internal hemorrhoids small -status post 1 unit of packed RBC on 04/12 hct improved,from 23 to 26, continue Octreotide 100 mcg subcu q.8 hours -INR remains subtherapeutic 1.5, Has history of mesenteric stent clotting, on Lovenox subQ bridge, continue Coumadin 10 mg today follow INR Low iron saturation will transfuse iron sucrose x d2/3 days GI working on obtaining thalidomide, case discussed with Dr. Garduno he recommend to obtain bleeding scan and if positive he recommend transfer to tertiary care center. 2. CAD -stable and well compensated at this time -continue outpatient therapies 3. History of mesenteric stent thrombosis. -INR 1.3, continue Coumadin and Lovenox bridge and continue aspirin, Plavix discontinued. -daily INR; adjust as indicated 4. Tobacco use disorder counseling done. Full Code Coumadin/Lovenox Patient will require ongoing hospitalization to follow GI bleed while awaiting more definitive therapies and ongoing specialist consultation Quality Stroke Does the patient have a stroke diagnosis?: No VTE Prior VTE?: No VTE Risk Level:: Medical - moderate - high VTE Device Contraindication: Treatment Not Indicated VTE Drug Contraindication: N/A - Med Ordered
--- NOTE | 2024-04-13 16:45 | P.PNGI_ITS ---
Subjective Subjective Date of Service: 04/13/24 Interval History: ongoing slow down drift of hgb required another transfusion melena no abdominal pain no SOB Critical Care Time (minutes): 0 Physical Exam 2 Vital Signs: Vital Signs: Last Vital Signs Temp 97.7 F 04/13/24 07:26 Pulse 74 04/13/24 07:26 Resp 16 04/13/24 07:26 BP 118/57 L 04/13/24 07:26 Pulse Ox 100 04/13/24 07:26 O2 Del Method Room Air 04/13/24 07:26 BMI result Body Mass Index 23.0 EXAM: GENERAL: The patient is relaxed VITAL SIGNS:see workflow HEENT: Nonicteric sclerae, PERRLA, EOMI. Oropharynx clear. Moist mucous membranes. Conjunctivae appear well perfused. No thyroid mass. CHEST: Chest wall is nontender. HEART: Regular rate and rhythm without murmurs. LUNGS: Clear to auscultation bilaterally. ABDOMEN: Soft, positive bowel sounds, nontender, no organomegaly.no flank tenderness--abdo scars noted SKIN: No rash, no excessive bruising, petechiae, or purpura. NEUROLOGIC: Cranial nerves II-XII intact without motor/sensory deficit. Psych: normal affect Objective Data Labs 04/13/24 05:50 04/10/24 05:49 Labs: Laboratory Results - last 24 hr 04/12/24 04/13/24 05:44 05:50 WBC 8.3 RBC 3.02 L Hgb 8.6 L Hct 26.1 L MCV 86.4 MCH 28.5 MCHC 33.0 RDW 16.4 H Plt Count 460 H MPV 9.7 Immature Gran % (Auto) 0.7 H Neut % (Auto) 63.1 Lymph % (Auto) 21.1 [place] % (Auto) 12.4 H Eos % (Auto) 1.7 Baso % (Auto) 1.0 Lymph # (Auto) 1.7 [place] # (Auto) 1.0 Eos # (Auto) 0.1 Baso # (Auto) 0.1 Abs Immat Gran (auto) 0.06 H Absolute Neuts (auto) 5.2 Absolute Nucleated RBC 0.000 Nucleated RBC % (auto) 0.0 PT 18.4 H INR 1.5 H Crossmatch See Detail Procedures Date of Service Date of Service: 04/13/24 Progress Note: A&P Assessment and plan (1) AVM (arteriovenous malformation) of duodenum, acquired with hemorrhage: Status: Acute Plan 1. Slow bleed on background of required anti coagulation to prevent stent thrombosis, has had mutliple CTA and several endoscopies, presumed loss is from AVM. Hasnt really responded to octreotide. PLAN: 1/ Discussed with pt about risks and benefits of using off label thalidomide for recurrent bleeding from AVM, his has had hysterectomy and he is not interested in having children. Studies also with higher risk of arterial and venous thrombus but that was in patients with underlying myeloma. He has agreed to try medication given the current situation. meantime will get a NM tagged rbc scan to see if any target lesions for endoscopy. Ref: Ruddy CORRAL, Nicole HM, Alen BarryJ, Sandor NiceZ, Juan CH, Caleb HH, Nicole HY, Eber W, Sary JY, Tanisha SD. Efficacy of thalidomide for refractory gastrointestinal bleeding from vascular malformation. Gastroenterology. 2011 Jul;141(5):1629-37.[id number]. doi: [email or web address]. Epub 2010Apr 05. PMID: [id number]. Time Spent With Patient Time: Total time managing care of this patient today ____ minutes. Quality Stroke Does the patient have a stroke diagnosis?: No VTE Prior VTE?: No VTE Risk Level:: Medical - moderate - high VTE Device Contraindication: Treatment Not Indicated VTE Drug Contraindication: N/A - Med Ordered
[2024-04-13] MEDS: Warfarin Sodium 10 MG TABLET PO (18:25)
[2024-04-13 19:11] VITALS: BP 131/64; PULSE 70; RESP 18; TEMP 36.6; O2SAT 97
[2024-04-14 03:42] VITALS: BP 122/61; PULSE 73; RESP 18; TEMP 37; O2SAT 100
[2024-04-14 06:42] LABS: Hematocrit 26.3 % (42.0-52.0); Hemoglobin 8.3 g/dl (14.0-18.0)
[2024-04-14 07:03] LABS: INTERNATIONAL NORM RATIO 2.4 (0.9-1.1); Prothrombin Time 29.3 SEC (11.1-13.3)
[2024-04-14] MEDS: Octreotide Acetate 100 MCG/ML AMPUL SUBCUT ×2 (07:47→15:05)
[2024-04-14 07:48] VITALS: BP 132/61; PULSE 70; RESP 18; TEMP 36.6; O2SAT 100
[2024-04-14] MEDS: Aspirin Enteric Coated 81 MG TABLET.DR PO (07:48)
--- NOTE | 2024-04-14 10:58 | P.PNIM_ITS ---
Subjective Subjective Date of Service: 04/14/24 Interval History: black stool yesreday, so far none today, nm scan negative Physical Exam 2 Vital Signs: Vital Signs: Last Vital Signs Temp 97.9 F 04/14/24 07:48 Pulse 70 04/14/24 07:48 Resp 18 04/14/24 07:48 BP 132/61 04/14/24 07:48 Pulse Ox 100 04/14/24 07:48 O2 Del Method Room Air 04/14/24 07:48 BMI result Body Mass Index 23.0 General: AO X 3, no acute distress Resp: CTA bilateral, no accessory muscles used CVS: S1,S2,RRR GI: soft, non tender, non distended Neuro: motor grossly intact, alert Psych: appropriate affect, appropriate insight Objective Data Active Medications Acetaminophen (Acetaminophen 325 Mg Tablet) 650 mg PO Q6H PRN PRN Reason: Pain, Mild (Pain Scale 1-3), fever or headache Al Hydroxide/Mg Hydroxide (Magnesium Hydrox/Alum Hydrox 30 Ml Oral.Susp) 30 ml PO Q4H PRN PRN Reason: Heartburn Aspirin (Aspirin Enteric Coated 81 Mg Tablet.Dr) 81 mg PO DAILY [facility] Last Admin: 04/14/24 07:48 Dose: 81 mg Documented By: AMARI Calcium Carbonate (Calcium Carbonate 750 Mg Tab.Chew) 750 mg PO Q4H PRN PRN Reason: Heartburn Iron Sucrose 400 mg/ Sodium (Chloride) 270 mls @ 180 mls/hr IV Q24H [facility] Last Infusion: 04/13/24 14:22 Dose: Infused Documented By: LISA Magnesium Hydroxide (Milk Of Magnesia 30 Ml Oral.Susp) 30 ml PO DAILY PRN PRN Reason: Constipation Melatonin (Melatonin 3 Mg Tablet) 6 mg PO BEDTIME PRN PRN Reason: Insomnia Octreotide Acetate (Octreotide Acetate 100 Mcg/Ml Ampul) 100 mcg SUBCUT Q8H [facility] Last Admin: 04/14/24 07:47 Dose: 100 mcg Documented By: AMARI Ondansetron HCl (Ondansetron Hcl 4 Mg/2 Ml Vial) 4 mg IVPUSH Q8H PRN PRN Reason: Nausea and Vomiting Oxycodone HCl (Oxycodone Hcl Immed Release 5 Mg Tablet) 10 mg PO Q4H PRN PRN Reason: Pain, Moderate(Pain Scale 4-6) Sodium Chloride (0.9 % Sodium Chloride Flush 3 Ml Syringe) 3 ml IVFLUSH QSHIFT [facility] Last Admin: 04/14/24 08:06 Dose: Not Given Documented By: AMARI Non-Admin Reason: Previously Administered Warfarin Sodium (Warfarin Sodium 10 Mg Tablet) 10 mg PO DAILY@1800 [facility] Last Admin: 04/13/24 18:25 Dose: 10 mg Documented By: LISA Labs 04/14/24 05:59 04/10/24 05:49 Labs: Laboratory Results - last 24 hr 04/14/24 06:00 PT 29.3 H D INR 2.4 H Assessment and Plan (1) AVM (arteriovenous malformation) of duodenum, acquired with hemorrhage: Status: Acute Plan 48M PMH mesenteric ischemia status post SMA and celiac artery stenting complicated by thrombosis status post radical hemicolectomy presented with dark tarry stools and worsening fatigue. GI bleed with acute blood loss anemia continued to have black stools, Likely bleed from AVM. Plavix discontinued. s/p upper endoscopy and colonoscopy 02/01 that showed mild gastritis,, erosive esophagitis, 3 small AVM noted in duodenal, ablated with APC, jejunum two small AVM noted ablated with APC, colonoscopy showed grade 1 internal hemorrhoids small status post 1 unit of packed RBC on 04/12 hct improved,from 23 to 26, continue Octreotide 100 mcg subcu q.8 hours bridged with lovenox, inr now therapeutic, conitnue coumadin Low iron saturation will transfuse iron sucrose x d3/3 days GI working on obtaining thalidomide bleeding scan negative CAD stable and well compensated at this time continue outpatient therapies history of mesenteric stent thrombosis. coumadin, daily inr Tobacco use disorder counseling done. Full Code dvt prophylaxis - on coumadin reason for continued hospitalization:monitoring bleeding while on AC Quality Stroke Does the patient have a stroke diagnosis?: No VTE Prior VTE?: No VTE Risk Level:: Medical - moderate - high VTE Device Contraindication: Treatment Not Indicated VTE Drug Contraindication: N/A - Med Ordered
[2024-04-14] MEDS: Iron Sucrose Complex 400 MG in 0.9 % Sodium Chloride 250 ML 180 MG IV (13:30)
[2024-04-14 15:15] VITALS: BP 122/66; PULSE 75; RESP 18; TEMP 36.5; O2SAT 100
[2024-04-14] MEDS: Warfarin Sodium 10 MG TABLET PO (17:54)
--- NOTE | 2024-04-14 18:04 | P.PNGI_ITS ---
Subjective Subjective Date of Service: 04/14/24 Interval History: still describes black stools HGb slightyl down red cell scan was neg reviewed the paperwork regards thalidomide with him and he signed the e documents no nausea or vomiting Critical Care Time (minutes): 0 Physical Exam 2 Vital Signs: Vital Signs: Last Vital Signs Temp 97.7 F 04/14/24 15:15 Pulse 75 04/14/24 15:15 Resp 18 04/14/24 15:15 BP 122/66 04/14/24 15:15 Pulse Ox 100 04/14/24 15:15 O2 Del Method Room Air 04/14/24 15:15 BMI result Body Mass Index 23.0 Const: General: cooperative and comfortable Orientation/consciousness: p atient oriented x3 Eyes: General: appearance normal, both eyes and all related structures Resp: Effort & Inspection: normal respiratory effort and able to speak in complete sentences Cardio: Jugular venous distension: no JVD GI: Palpation (GI): No Ascites present Neuro: General: patient oriented x3 and moves all extremities Psych: Appearance: grossly normal Objective Data Labs 04/14/24 05:59 04/10/24 05:49 Labs: Laboratory Results - last 24 hr 04/14/24 04/14/24 05:59 06:00 Hgb 8.3 L Hct 26.3 L PT 29.3 H D INR 2.4 H Procedures Date of Service Date of Service: 04/14/24 Progress Note: A&P Assessment and plan (1) AVM (arteriovenous malformation) of duodenum, acquired with hemorrhage: Status: Acute Plan 1/ Recurrent anemia presumed from AVM bleeding caused by need for anticoagulation, neg RBC scan (may indicate v slow bleed rate less than that detectable by the scan) PLAn: 1/ will submit paperwork for thaldiomide, reviewed all risks and benefits-- has had hysterectomy - arterial thrombosis risk but seen in pts with [facility] Time Spent With Patient Time: Total time managing care of this patient today ____ minutes. Quality Stroke Does the patient have a stroke diagnosis?: No VTE Prior VTE?: No VTE Risk Level:: Medical - moderate - high VTE Device Contraindication: Treatment Not Indicated VTE Drug Contraindication: N/A - Med Ordered
[2024-04-14] MEDS: Octreotide Acetate 100 MCG/ML AMPUL IVPUSH (18:11)
[2024-04-14 19:45] VITALS: BP 128/59; PULSE 80; RESP 16; TEMP 36.9; O2SAT 98
[2024-04-14] MEDS: 0.9 % Sodium Chloride Flush 3 ML SYRINGE IVFLUSH (23:24)
[2024-04-15 03:03] VITALS: BP 119/69; PULSE 54; RESP 16; TEMP 36.1; O2SAT 95
[2024-04-15] MEDS: Octreotide Acetate 100 MCG/ML AMPUL IVPUSH ×3 (03:04→18:17)
[2024-04-15 06:26] LABS: Hematocrit 27.8 % (42.0-52.0); Hemoglobin 8.6 g/dl (14.0-18.0); Mean Corpuscular HGB Conc 30.9 g/dl (31.0-36.0); Mean Corpuscular Hemoglobin 28.5 pg (27.0-33.0); Mean Corpuscular Volume 92.1 fL (80.0-98.0); Mean Platelet Volume 9.5 fL (9.4-12.4); NRBC Pct Auto 0.3 /100WBC (0.0-0.2); Platelet Count 532 X10*3/uL (160-400); Red Blood Count 3.02 X10*6/uL (4.60-5.80); Red Cell Distribution Width 17.9 % (11.0-16.0); White Blood Count 12.5 X10*3/uL (4.8-10.8)
[2024-04-15 06:33] LABS: INTERNATIONAL NORM RATIO 2.2 (0.9-1.1); Prothrombin Time 26.8 SEC (11.1-13.3)
[2024-04-15 07:32] LABS: Anion Gap 10 (12-20); Blood Urea Nitrogen 11 mg/dL (9-16); Calcium 9.3 mg/dL (8.4-10.2); Carbon Dioxide 27 mmol/L (22-29); Chloride 109 mmol/L (96-108); Creatinine Clr Calc Pharmacy 150.9; Estimated Glomerular Filt Rate > 60; Glucose Fasting 123 mg/dL (60-99); Potassium 4.5 mmol/L (3.3-5.1); Sodium 141 mmol/L (135-145)
[2024-04-15 07:35] VITALS: BP 119/55; PULSE 70; RESP 16; TEMP 36.7; O2SAT 99
--- NOTE | 2024-04-15 08:40 | P.PNIM_ITS ---
Subjective Subjective Date of Service: 04/15/24 Interval History: 1 black stool yesterday Physical Exam 2 Vital Signs: Vital Signs: Last Vital Signs Temp 98.0 F 04/15/24 07:35 Pulse 70 04/15/24 07:35 Resp 16 04/15/24 07:35 BP 119/55 L 04/15/24 07:35 Pulse Ox 99 04/15/24 07:35 O2 Del Method Room Air 04/15/24 07:35 BMI result Body Mass Index 23.0 Const: General: cooperative and comfortable Orientation/consciousness: p atient oriented x3 Eyes: General: appearance normal, both eyes and all related structures Resp: Effort & Inspection: normal respiratory effort and able to speak in complete sentences Cardio: Jugular venous distension: no JVD GI: Palpation (GI): No Ascites present Neuro: General: patient oriented x3 and moves all extremities Psych: Appearance: grossly normal Objective Data Active Medications Acetaminophen (Acetaminophen 325 Mg Tablet) 650 mg PO Q6H PRN PRN Reason: Pain, Mild (Pain Scale 1-3), fever or headache Al Hydroxide/Mg Hydroxide (Magnesium Hydrox/Alum Hydrox 30 Ml Oral.Susp) 30 ml PO Q4H PRN PRN Reason: Heartburn Aspirin (Aspirin Enteric Coated 81 Mg Tablet.Dr) 81 mg PO DAILY ON LICENSE OF [facility] Last Admin: 04/14/24 07:48 Dose: 81 mg Documented By: AMARI Calcium Carbonate (Calcium Carbonate 750 Mg Tab.Chew) 750 mg PO Q4H PRN PRN Reason: Heartburn Iron Sucrose 400 mg/ Sodium (Chloride) 270 mls @ 180 mls/hr IV Q24H ON LICENSE OF [facility] Last Infusion: 04/14/24 15:07 Dose: Infused Documented By: AMARI Magnesium Hydroxide (Milk Of Magnesia 30 Ml Oral.Susp) 30 ml PO DAILY PRN PRN Reason: Constipation Melatonin (Melatonin 3 Mg Tablet) 6 mg PO BEDTIME PRN PRN Reason: Insomnia Octreotide Acetate (Octreotide Acetate 100 Mcg/Ml Ampul) 100 mcg IVPUSH Q8H ON LICENSE OF [facility] Last Admin: 04/15/24 03:04 Dose: 100 mcg Documented By: KUNAL Ondansetron HCl (Ondansetron Hcl 4 Mg/2 Ml Vial) 4 mg IVPUSH Q8H PRN PRN Reason: Nausea and Vomiting Oxycodone HCl (Oxycodone Hcl Immed Release 5 Mg Tablet) 10 mg PO Q4H PRN PRN Reason: Pain, Moderate(Pain Scale 4-6) Sodium Chloride (0.9 % Sodium Chloride Flush 3 Ml Syringe) 3 ml IVFLUSH QSHIFT ON LICENSE OF [facility] Last Admin: 04/14/24 23:24 Dose: 3 ml Documented By: KUNAL Warfarin Sodium (Warfarin Sodium 10 Mg Tablet) 10 mg PO DAILY@1800 ON LICENSE OF [facility] Last Admin: 04/14/24 17:54 Dose: 10 mg Documented By: AMARI Labs 04/15/24 05:43 04/15/24 07:03 Labs: Laboratory Results - last 24 hr 04/15/24 04/15/24 05:43 07:03 MCV 92.1 D MCH 28.5 MCHC 30.9 L RDW 17.9 H Plt Count 532 H MPV 9.5 Absolute Nucleated RBC 0.040 H Nucleated RBC % (auto) 0.3 H Hold Purple Top SEE NOTE PT 26.8 H INR 2.2 H Hold Blue Top SEE NOTE Anion Gap 10 L Estim Creat Clear Calc 150.9 Estimated GFR > 60 Fasting Glucose 123 H Calcium 9.3 Assessment and Plan (1) AVM (arteriovenous malformation) of duodenum, acquired with hemorrhage: Status: Acute Plan 48M PMH mesenteric ischemia status post SMA and celiac artery stenting complicated by thrombosis status post radical hemicolectomy presented with dark tarry stools and worsening fatigue. GI bleed with acute blood loss anemia continued to have black stools, Likely bleed from AVM. Plavix discontinued. s/p upper endoscopy and colonoscopy 02/01 that showed mild gastritis,, erosive esophagitis, 3 small AVM noted in duodenal, ablated with APC, jejunum two small AVM noted ablated with APC, colonoscopy showed grade 1 internal hemorrhoids small status post 1 unit of packed RBC on 04/12 hct improved,from 23 to 26, continue Octreotide 100 mcg q.8 hours bridged with lovenox, inr now therapeutic, conitnue coumadin completed iron sucrose x 3 days GI working on obtaining thalidomide bleeding scan negative CAD stable and well compensated at this time continue asa, coumadin history of mesenteric stent thrombosis. coumadin, daily inr Tobacco use disorder counseling done Full Code dvt prophylaxis - on coumadin reason for continued hospitalization:monitoring bleeding while on AC Quality Stroke Does the patient have a stroke diagnosis?: No VTE Prior VTE?: No VTE Risk Level:: Medical - moderate - high VTE Device Contraindication: Treatment Not Indicated VTE Drug Contraindication: N/A - Med Ordered
[2024-04-15] MEDS: Aspirin Enteric Coated 81 MG TABLET.DR PO (09:24)
[2024-04-15] MEDS: 0.9 % Sodium Chloride Flush 3 ML SYRINGE IVFLUSH ×2 (09:24→20:00)
[2024-04-15] MEDS: Iron Sucrose Complex 400 MG in 0.9 % Sodium Chloride 250 ML 180 MG IV (13:32)
[2024-04-15 15:29] VITALS: BP 141/57; PULSE 75; RESP 16; TEMP 36.3; O2SAT 98
[2024-04-15] MEDS: Warfarin Sodium 10 MG TABLET PO (18:17)
[2024-04-15 20:00] VITALS: BP 114/67; PULSE 77; RESP 18; TEMP 36.3; O2SAT 100
[2024-04-16 03:14] VITALS: BP 113/55; PULSE 75; RESP 16; TEMP 36.4; O2SAT 97
[2024-04-16] MEDS: Octreotide Acetate 100 MCG/ML AMPUL IVPUSH ×2 (03:14→09:23)
[2024-04-16 06:25] LABS: Hematocrit 29.8 % (42.0-52.0); Hemoglobin 9.1 g/dl (14.0-18.0); Mean Corpuscular HGB Conc 30.5 g/dl (31.0-36.0); Mean Corpuscular Hemoglobin 28.5 pg (27.0-33.0); Mean Corpuscular Volume 93.4 fL (80.0-98.0); Mean Platelet Volume 9.2 fL (9.4-12.4); NRBC Pct Auto 0.4 /100WBC (0.0-0.2); Platelet Count 515 X10*3/uL (160-400); Red Blood Count 3.19 X10*6/uL (4.60-5.80); Red Cell Distribution Width 19.9 % (11.0-16.0); White Blood Count 11.1 X10*3/uL (4.8-10.8)
[2024-04-16 06:29] LABS: INTERNATIONAL NORM RATIO 2.1 (0.9-1.1); Prothrombin Time 26.1 SEC (11.1-13.3)
[2024-04-16 06:44] LABS: Anion Gap 9 (12-20); Blood Urea Nitrogen 11 mg/dL (9-16); Carbon Dioxide 28 mmol/L (22-29); Chloride 107 mmol/L (96-108); Creatinine Clr Calc Pharmacy 134.4; Estimated Glomerular Filt Rate > 60; Glucose Fasting 144 mg/dL (60-99); Potassium 4.4 mmol/L (3.3-5.1); Sodium 140 mmol/L (135-145)
[2024-04-16 07:33] VITALS: BP 111/53; PULSE 71; RESP 16; TEMP 36.4; O2SAT 97
[2024-04-16] MEDS: 0.9 % Sodium Chloride Flush 3 ML SYRINGE IVFLUSH (08:09)
[2024-04-16] MEDS: Aspirin Enteric Coated 81 MG TABLET.DR PO (09:23)
--- NOTE | 2024-04-16 12:36 | PM.DS ---
DS: Providers Provider Date of Service: 04/16/24 Date of admission: 04/07/24 16:44 Primary care physician: Ngoc Fung MD Consults: 04/07/24 15:10 Consult to Gastroenterology Stat Consulting Provider: Shamar Garduno Reason for consultation: UGIB Has provider been notified: Yes 04/07/24 17:03 Consult to Hematology / Oncology Routine Consulting [place] [facility] [place] Reason for consultation: Question thalidomide Has provider been notified: No DS: Diagnosis Discharge Diagnosis (1) AVM (arteriovenous malformation) of duodenum, acquired with hemorrhage: Status: Acute DS: Summary Hospital Course Hospital Course: from initial hpi: 48-year-old gentleman with past medical history significant for 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 and recent celiac artery stenting ([facility] vascular) 02/2024 on coumadin with lovenox bridge/asa/plavix, history of hyperlipidemia, iron deficiency anemia, history of peptic ulcer disease, depression, internal hemorrhoids presented to the ED with recurrent black stools. States compliant with his Coumadin and Plavix secondary to past stent clotting. Recently admitted 03/30 through 04/02/24. (please see past chart notes for details). In the emergency room hemoglobin found to be 5.4 for which he is being transfused 2 units. GI consulted and recommended octreotide subQ secondary to poor IV access. At this point in time he will be admitted for blood and further treatment as per GI hospital course: Patient was admitted for acute blood loss anemia due to GI bleed likely from AVM. Plavix was discontinued. Patient received packed RBCs and hemoglobin eventually stabilized. Was bridged back on anticoagulation with Lovenox. INR now therapeutic and will continue on Coumadin. Received 3 doses of iron sucrose. Was seen by GI who obtained thalidomide for patient and will be starting on Friday. Will continue octreotide subcutaneous. Bleeding scan was negative. For coronary disease Plavix was discontinued, was continued on aspirin and Coumadin. For history of mesenteric stent thrombosis was continued on Coumadin. Patient is medically stable will be discharged home. Time Attestation Discharge Coordination Time (in mins): 37 Quality: Safe Use of Opioids Does Pt have an Active Cancer Diagnosis on the Problem List?: No Quality: Stroke Does the patient have a stroke diagnosis?: No Physical Exam Vital Signs: Vital Signs: Last Vital Signs Temp 97.6 F 08/02/24 07:33 Pulse 71 04/16/24 07:33 Resp 16 04/16/24 07:33 BP 111/53 L 04/16/24 07:33 Pulse Ox 97 04/16/24 07:33 O2 Del Method Room Air 04/16/24 07:33 BMI result Body Mass Index 23.0 Const: General: cooperative and comfortable Orientation/consciousness: patient oriented x3 Eyes: General: appearance normal, both eyes and all related structures Resp: Effort & Inspection: normal respiratory effort and able to speak in complete sentences Cardio: Jugular venous distension: no JVD GI: Palpation (GI): No Ascites present Neuro: General: patient oriented x3 and moves all extremities Psych: Appearance: grossly normal DS: Data Data Completed and Pending Completed studies during hospitalization [Text1]: Procedures Excision of Stomach, Pylorus, Via Natural or Artificial Opening Endoscopic, Diagnostic (03/22/24) Introduction of Mineral-based Topical Hemostatic Agent into Upper GI, Via Natural or Artificial Opening Endoscopic, [employer] 6 (03/22/24) Transfusion of Nonautologous Red Blood Cells into Peripheral Vein, Percutaneous Approach (03/30/24) Labs on day of discharge: Laboratory Results - last 24 hr 04/16/24 05:55 WBC 11.1 H RBC 3.19 L Hgb 9.1 L Hct 29.8 L MCV 93.4 MCH 28.5 MCHC 30.5 L RDW 19.9 H Plt Count 515 H MPV 9.2 L Absolute Nucleated RBC 0.040 H Nucleated RBC % (auto) 0.4 H PT 26.1 H INR 2.1 H Sodium 140 Potassium 4.4 Chloride 107 Carbon Dioxide 28 Anion Gap 9 L BUN 11 Creatinine 0.73 Estim Creat Clear Calc 134.4 Estimated GFR > 60 Fasting Glucose 144 H Calcium 9.0 Discharge Plan Discharge Anticipated Discharge Date/Time: 04/16/24 12:32 Patient Disposition: Home, Self-Care Discharge Diagnosis: abla Referrals: Ngoc Fung MD [Primary Care Provider] - 1 Week Shamar Garduno MD [Physician] - 1 Week Discharge Medications: Continued aspirin 81 mg tablet,delayed release (DR/EC) 81 mg PO DAILY Qty: 90 1RF octreotide acetate 100 mcg/mL (1 mL) syringe 100 mcg subcut Q8H thalidomide 100 mg capsule 100 mg PO QPM Qty: 30 0RF Rx Instructions: administer at least 1 hour after evening meal or, preferably, at bedtime; swallow whole with water; do not open; store in original packaging ondansetron 4 mg tablet,disintegrating 4 mg PO Q8H PRN (Reason: nausea and vomiting) Qty: 20 0RF cholecalciferol (vitamin D3) 1,250 mcg (50,000 unit) capsule 1,250 mcg PO FR warfarin 5 mg Tablet 7.5 mg PO Q48H Protocol: Dose Management Condition: Friday Dose/Route: 5 mg Instruction: 1 x 5 mg tablet Condition: Friday Dose/Route: 5 mg Instruction: 1 x 5 mg tablet Condition: Friday Dose/Route: 7.5 mg Instruction: 1.5 x 5 mg tablets Condition: Friday Dose/Route: 5 mg Instruction: 1 x 5 mg tablet Condition: Dose/Route: 7.5 mg Instruction: 1.5 x 5 mg tablets Condition: Friday Dose/Route: 5 mg Instruction: 1 x 5 mg tablet Condition: Friday Dose/Route: 7.5 mg Instruction: 1.5 x 5 mg tablets Protocol Text: Adjustment Start Date: Friday04/05/24 INR Value: 2.5 INR Date: 04/05/24 Recheck Date: 04/07/24 Additional Instructions: REVIEW FOOD LIST CHANGE DOSE pantoprazole 40 mg tablet,delayed release (DR/EC) 40 mg PO DAILY@0630 sucralfate [Carafate] 100 mg/mL suspension 10 ml PO BID ferrous sulfate 324 mg (65 mg iron) tablet,delayed release (DR/EC) 324 mg PO DAILY Qty: 30 0RF warfarin 5 mg tablet 5 mg PO DAILY Discontinued clopidogrel 75 mg tablet 75 mg PO DAILY Discharge Orders: Discharge Order (Routine); Ordered 04/16/24 Ordered By: Byron Castillo Diet: Advance to usual diet Activity on Discharge: As tolerated Stand Alone Forms: Patient Portal Discharge page Print Language: Mauritian Care Plan Goals: recovery Health Concerns: gi bleed with mesenteric thormbois Plan of Treatment: continue AC, octreotide and start thalidomide, follow up with gi Assessment: see above
--- NOTE | 2024-04-16 12:37 | MHC.CM.PN ---
PT WILL DC HOME TODAY WITH NO SERVICES VIA PRIVATE TRANSPORT
[2024-04-16] MEDS: Iron Sucrose Complex 400 MG in 0.9 % Sodium Chloride 250 ML 180 MG IV (14:04)
== END 2024-04-16 16:44 | disposition home or self-care (01) | DRG 661 ==
LOC: HO.ED 12:27 → HO.EDOVER 16:50 → HO.S3 18:21
PROVIDERS: Hospitalist; Physician Assistant; Admitting Provider Hospitalist; Emergency Provider Emergency Medicine Emergency Medical Services; PCP Internal Medicine; Visit Provider Internal Medicine
DX: D68.32 Hemorrhagic disorder due to extrinsic circulating anticoagulants (principal); K31.811 Angiodysplasia of stomach and duodenum with bleeding; D62 Acute posthemorrhagic anemia; T45.515A Adverse effect of anticoagulants, initial encounter; Z86.718 Personal history of other venous thrombosis and embolism; Z87.891 Personal history of nicotine dependence; Z79.01 Long term (current) use of anticoagulants; Z79.02 Long term (current) use of antithrombotics/antiplatelets; Z79.82 Long term (current) use of aspirin; Z79.899 Other long term (current) drug therapy
CPT/HCPCS: 36415; 78278; 80048; 80053; 80076; 81003; 82272; 83735; 84484; 85014; 85018; 85025; 85027; 85610; 85730; 86850; 86900; 86901; 86923; 93005; 99285; A9560; J1650; J1756; J2354; J2470; P9016

== ENCOUNTER → 2024-04-07 12:23 | Outpatient (BNV) | payer OTHER, SELFPAY | PROVIDERS: Admitting Provider Hospitalist; Emergency Provider Emergency Medicine Emergency Medical Services; Visit Provider Internal Medicine | DX: R07.9 Chest pain, unspecified (principal) | CPT/HCPCS: 93010 ==

== ENCOUNTER → 2024-04-07 16:44 | Outpatient (BNV) | payer OTHER, SELFPAY | PROVIDERS: Admitting Provider Hospitalist; Emergency Provider Emergency Medicine Emergency Medical Services; Visit Provider Hospitalist | DX: K31.811 Angiodysplasia of stomach and duodenum with bleeding (principal) | CPT/HCPCS: 99223; 99232; 99233; 99239 ==

== ENCOUNTER → 2024-04-07 16:44 | Outpatient (BNV) | payer OTHER, SELFPAY | PROVIDERS: Admitting Provider Hospitalist; Emergency Provider Emergency Medicine Emergency Medical Services; Visit Provider Internal Medicine Gastroenterology | DX: K31.811 Angiodysplasia of stomach and duodenum with bleeding (principal) | CPT/HCPCS: 99223; 99232; 99233 ==

== ENCOUNTER → 2024-04-07 16:44 | Outpatient (BNV) | payer OTHER, SELFPAY | PROVIDERS: Admitting Provider Hospitalist; Emergency Provider Emergency Medicine Emergency Medical Services; PCP Internal Medicine; Visit Provider Internal Medicine Medical Oncology | DX: K55.069 Acute infarction of intestine, part and extent unspecified (principal) | CPT/HCPCS: 99222 ==

== ENCOUNTER 2024-04-20 14:24 | Outpatient (AMB) | payer OTHER, SELFPAY ==
[2024-04-20 14:47] LABS: Prothrombin Time Whole Bld POC 20.9 sec (11.1-13.5); ~PT, ~INR - Anti Coag Clinic 1.7 (0.9-1.1)
--- NOTE | 2024-04-20 15:08 | MHC.OFFVISCO ---
Intake Intake Visit Reasons: Anticoagulation Allergies No Known Allergies Allergy (Verified 04/20/24 15:15) Medication List - Last Reconciled 04/20/24 by Nolvia Trinidad RN aspirin 81 mg PO DAILY cholecalciferol (vitamin D3) 1,250 mcg PO FR ferrous sulfate 324 mg PO DAILY octreotide acetate 100 mcg subcut Q8H ondansetron 4 mg PO Q8H PRN pantoprazole 40 mg PO DAILY@0630 sucralfate (Carafate) 10 mL PO BID thalidomide 100 mg PO QPM warfarin 7.5MG X 3 DAYS/ 5MG X 4 DAYS; Nursing Note INR 1.7 out of therapeutic range INR 2.1 ON 04/16/24 Medications and supplements reviewed Patient status: Pt no longer on plavix just warfarin and aspirin, still has black stools - is also on iron - could be iron or old blood or still bleeding, pt appears much better than he has in the past, has not been taking carafate and will start just in the evening- he stated he took it before and did not help, he is going to take his pantoprazole in am and carafate in the pm, he is going to have the vascular gastric bypass 05/07/24 so he will no longer need to take wararin jut the plavix Medications or supplements: taking ocretide injections tid and thalomide - neither raise the INR BUT the CARAFATE can Diet: able to eat better now Denies any signs and symptoms of bleeding or clotting or unusual bruising Bleeding, bruising, clotting discussed Nutritional guidance given: eat a mix of fruits and vegetables that you can tolerate to balance your INR Dose: keep same for now 7.5mg mwf/ 5mg x 4 days F/U INR Date : this friday due to pt status has hem/onc appt today - enc to call or come to clinic with any changes in plan of care ?? Patient, and daughter verbalize understanding of instructions given. Anti-Coag Initial Assessment Social Hx Patient Tobacco Use Status: Former Tobacco user Tobacco use type: Cigar alcohol intake: former Alcohol intake frequency: does not drink Cardiovascular Hx: HTN, Angina, [place] (PRE-[place] AGE 28) and Varicose Veins (SPIDER VEINS ) Lung Disease HX: DVT/PE (MESENTERIC MULTIPLE CLOTS) Musculoskeletal Hx: Arthritis Blood Disorder Hx: Anemia GI Hx: Bleeding (GI, rectal) Neurological Hx: Serious Head Injury ( A CHILD HEAD INJURY REQUIRUIRING SURGERY ) Cancer HX: No (FAMILY HX ) Psych. Illness/Depression: No Coding Level of Care Code Est Patient Level 1 Diagnoses Current use of anticoagulant therapy Z79.01 Assessment & Plan Assessment & Plan (1) Current use of anticoagulant therapy: Code(s): Z79.01 - detention (current) use of anticoagulants Category: Medical
== END 2024-04-20 15:16 | disposition home or self-care (01) ==
LOC: HO.ACS 14:24
PROVIDERS: PCP Internal Medicine; Visit Provider Internal Medicine
DX: Z79.01 Long term (current) use of anticoagulants (principal)

== ENCOUNTER → 2024-04-20 14:24 | Outpatient (BNVA) | payer OTHER, SELFPAY | PROVIDERS: PCP Internal Medicine; Visit Provider Internal Medicine | DX: K55.059 Acute (reversible) ischemia of intestine, part and extent unspecified (principal); Z79.01 Long term (current) use of anticoagulants; Z51.81 Encounter for therapeutic drug level monitoring | CPT/HCPCS: 85610; 99211 ==

== ENCOUNTER → 2024-04-20 15:01 | Outpatient (BNV) | payer OTHER, SELFPAY | PROVIDERS: PCP Internal Medicine; Referring Provider Internal Medicine; Visit Provider Internal Medicine | DX: D50.9 Iron deficiency anemia, unspecified (principal) | CPT/HCPCS: 99204; G2211 ==

== ENCOUNTER 2024-04-22 11:15 | Outpatient (AMB) | payer OTHER, SELFPAY ==
[2024-04-22 11:25] VITALS: BP 136/72; PULSE 75; O2SAT 100; BMI 23.2
--- NOTE | 2024-04-22 11:25 | A.OFFPC_ITS ---
Vital Signs 04/22/24 11:25 Height 6 ft Weight 171 lb 6 oz BMI 23.2 BP 136/72 Blood Pressure Location Lt brachial Position Sitting Pulse 75 Pulse Source Pulse Oximeter Pulse Oximetry (%) 100 Oxygen Delivery Method Room Air Intake Visit Reasons: [facility] [place] anemia Intake Note: Patient is here today for HDF follow up on anemia Allergies No Known Allergies Allergy (Verified 04/22/24 13:03) Medication List - Last Reconciled 04/22/24 by Ngoc Fung MD aspirin 81 mg PO DAILY cholecalciferol (vitamin D3) 1,250 mcg PO FR ferrous sulfate 324 mg PO DAILY octreotide acetate 100 mcg subcut Q8H ondansetron 4 mg PO Q8H PRN pantoprazole 40 mg PO DAILY@0630 sucralfate (Carafate) 10 mL PO BID thalidomide 100 mg PO QPM warfarin See Protocol 7.5MG X 3 DAYS/ 5MG X 4 DAYS; Tobacco use date assessed: 04/22/24 Dental Screening Dental Screen Date: 04/22/24 Did you have a dental visit in the last 12 months?: No Did you have a dental problem in the last 6 months where you did not have access to dental care?: No Was dental information given to patient?: Patient has dentist HPI [facility] [place] anemia HPI Details 48-year-old gentleman with past medical history significant for 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 and recent celiac artery stenting ([facility] vascular) 02/2024 on coumadin with lovenox bridge/asa/plavix, history of hyperlipidemia, iron deficiency anemia, history of peptic ulcer disease, depression, internal hemorrhoids , with repeated admissions for acute blood loss anemia due to GI bleed likely from AVM, here today for follow-up.. Plavix and Coumadin were discontinued and he was started on thalidomide and continued on octreotide subcutaneous per GI. Bleeding scan was negative. He was seen by Hematology, now receiving both oral and intravenous iron therapy with Venofer. He wants to have his hemoglobin optimized preoperatively, so Dr. Ibarra recommended increasing Venofer to 400 mg IV weekly for about 4 infusions, has tolerated iron infusions well the past. He is scheduled to undergo GI Vascular Bypass surgery 05/07/24, and has a preop already scheduled in [facility] for 04/29/2024. He has been instructed to hold the flutamide 10 days prior to surgery and hold warfarin 5 days prior to surgery, continue with as and continue octreotide injections. Lovenox was still in question due to recent bleed and vascular attending and GI will decide if any br idging of Lovenox needed. Patient is here today accompanied by , as they are very apprehensive about upcoming surgery. 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 Maternal Aunt No problems noted. Social History Household Members: Spouse Housing: Apartment Do you presently have visiting nurse or other home services: No Alcohol intake: former Patient Tobacco Use Status: Former Tobacco user Tobacco use type: Cigar Years Smoked: 3 e-Cigarette/Vaping Use: Never Used Substance Use Type: Marijuana service: No Current occupational status: employed Current occupational exposures/hazards: No Cognitive needs: No Hearing needs: No Vision needs: No Questionnaire Thrive Questionnaire Date Thrive assessed: 04/22/24 I am a: Patient What is your living situation today?: I choose not to answer this question Within the past 12 months, did the food you bought not last and you didn't have the money to get more?: I choose not to answer this question Within the past 12 months, did you worry whether your food would run out before you got money to buy more?: I choose not to answer this question Do you have trouble paying for medicines?: No Do you have trouble getting transportation to medical appointments?: No Do you have trouble paying your heating and electricity bill?: I choose not to answer this question Do you have trouble taking care of your child, family member or friend?: I choose not to answer this question Do you have trouble with day-to-day activities such as bathing, preparing meals, shopping, managing finances, etc.?: I choose not to answer this question Are you currently unemployed and looking for a job?: I choose not to answer this question Are you interested in more education?: No Please select the resources that you would like help with: Housing/[facility] Currently or been in a relationship where the following occur: I choose not to answer THRIVE Score: 0 AUDIT C Alcohol Use Questionnaire (AUDIT-C) 1. How often do you have a drink containing alcohol?: Never 3. How often do you have six or more drinks on one occasion?: Never Total Score: 0 Score Reviewed/Action Taken: Yes KAMILA-7 AMB Questionnaire KAMILA-7 Date KAMILA - 7 assessed: 04/22/24 Source: Developed by Drs. Greg Hernandez, [place]ley [place], Dustin Ann and colleagues, with an educational hans from [employer]. KAMILA-7 Assessment Billing KAMIAL-7 Assessment Tool: KAMILA-7 Assessment 33900 Review of Systems Const Denies body aches, Denies chills, Reports fatigue, Denies fever(s), Denies headache(s), Denies malaise, Reports poor appetite and Denies weakness Eyes Reports no additional complaints ENT Denies dysphagia, Denies headache(s), Denies mouth pain, Denies nasal congestion, Denies post nasal drip and Denies throat swelling Card Reports as per HPI, Denies chest pain and Denies irregular heart rhythm Resp Reports as per HPI, Denies cough and Denies wheezing GI Denies melena, Denies bloating, Denies hematochezia, Denies constipation, Denies dysphagia, Denies excessive flatus, Denies early satiety, Reports heartburn and Denies diarrhea Reports no additional complaints Musc Reports no additional complaints Neuro Reports no additional complaints, Reports as per HPI, Denies headache(s) and Denies weakness Psych Reports as per HPI Endo Reports fatigue Yared/Lymph Reports as per HPI Aller/Immun Denies throat swelling and Denies wheezing Physical exam (Primary Care) Vital Signs: Last Vital Signs Pulse 75 08/08/24 11:25 BP 136/72 04/22/24 11:25 Pulse Ox 100 04/22/24 11:25 Oxygen Delivery Method Room Air 04/22/24 11:25 BMI result Body Mass Index 23.2 Tobacco/Smoking Status: Tobacco use Status Tobacco use date assessed 04/22/24 04/22/24 11:26 Patient Tobacco Use Status Former Tobacco user 04/22/24 11:26 Tobacco use type Cigar 04/22/24 11:26 e-Cigarette/Vaping Use Never Used 04/22/24 11:26 PHQ-9: PHQ-9 Score PHQ-9: Total score 04/22/24 12:28 Thrive Assessment: Date of Thrive Assessment Date Thrive assessed 04/22/24 04/22/24 11:26 Currently or been in a relationship where the following occur: I choose not to answer ACP: accompanying Const General: comfortable, no acute distress and alert Orientation/consciousness: patient oriented x3 [facility] General nose exam: Normal external nose present Face and sinus: Yes face symmetric Mouth: Normal oral and palatal mucosa present, oropharynx normal and moist mucous membranes Eyes General: appearance normal, both eyes and all related structures Periorbital: periorbital findings normal Sclerae: sclerae normal Pupils: Equal, round and reactive pupils present EOM: EOMs intact bilaterally Neck Neck: Yes full ROM, Yes no lymphadenopathy and Yes supple Resp Auscultation: clear to auscultation bilaterally Cardio Rate: regular rate Rhythm: regular rhythm Heart sounds: S1 normal heart sound present and S2 normal heart sound present GI Palpation (GI): Soft to palpation, nontender, no guarding and no masses Auscultation: normal bowel sounds Skin Other: Healed surgical scar midline of abdomen General skin exam: no rashes or lesions noted Neuro General: patient oriented x3, gait normal, tone normal, moves all extremities, Normal light touch and pain sensation, no focal motor deficits and CN's II-XI intact bilaterally Cranial nerves: Yes Equal, round and reactive pupils present Extrem General: Yes full ROM, Yes no joint enlargement, Yes no clubbing, cyanosis or edema, Yes no calf tenderness and Yes normal gait Assessment and Plan Assessment & Plan (1) Mesenteric artery thrombosis: Code(s): K55.069 - Acute infarction of intestine, part and extent unspecified Plan: Patient is scheduled for GI Vascular Bypass surgery 05/07/24 at [facility] on 05/07/2024, and has a preoperative exam scheduled for 04/29/2024 at [facility] as well. He is being instructed to: Hold Thalidomide x 10days prior Hold Warfarin x 5 days prior Stay on Aspirin Stay on Ocreotide Injections as ordered Lovenox is in question due recent bleeds- the PA will consult with Vascular Attending and GI for decision of any bridging with lovenox and notify ACS and patient. (2) Iron deficiency anemia: Code(s): D50.9 - Iron deficiency anemia, unspecified Plan: As per Hematology recommendation, hemoglobin to be optimized preoperatively and recommended increasing Venofer to 400 mg IV weekly for about 4 infusions. He has tolerated iron infusions well the past. Medications: Refilled ondansetron 4 mg PO Q8H PRN 20 tabs 0RF nausea and vomiting Coding Level of Care Code Est Pt Level 4 (30130) Complex EM visit Add On G2211 Diagnoses Mesenteric artery thrombosis K55.069 Iron deficiency anemia D50.9 Additional Codes KAMILA-7 Assessment Billing - KAMILA-7 Assessment Tool: KAMILA-7 Assessment 51185 ([id number])
== END 2024-04-22 15:56 | disposition home or self-care (01) ==
PROVIDERS: PCP Internal Medicine; Visit Provider Internal Medicine
DX: K55.069 Acute infarction of intestine, part and extent unspecified (principal); D50.9 Iron deficiency anemia, unspecified
CPT/HCPCS: 99214; G2211

== ENCOUNTER 2024-04-23 11:18 | Outpatient (AMB) | payer OTHER, SELFPAY ==
[2024-04-23 11:31] LABS: Prothrombin Time Whole Bld POC 14.4 sec (11.1-13.5); ~PT, ~INR - Anti Coag Clinic 1.2 (0.9-1.1)
--- NOTE | 2024-04-23 11:39 | MHC.OFFVISCO ---
Intake Intake Visit Reasons: Anticoagulation Allergies No Known Allergies Allergy (Verified 04/23/24 11:23) Medication List - Last Reconciled 04/23/24 by Nolvia Trinidad RN aspirin 81 mg PO DAILY cholecalciferol (vitamin D3) 1,250 mcg PO FR ferrous sulfate 324 mg PO DAILY octreotide acetate 100 mcg subcut Q8H ondansetron 4 mg PO Q8H PRN pantoprazole 40 mg PO DAILY@0630 sucralfate (Carafate) 10 mL PO BID thalidomide 100 mg PO QPM warfarin See Protocol 7.5MG X 3 DAYS/ 5MG X 4 DAYS; Nursing Note INR: 1.2 OUT OF therapeutic range Medications and supplements reviewed- HE RESUMED TAKING CARAFATE WHICH CAN LOWER THE INR AND IS EATING BETTER AND GAINING WEIGHT He had an iron infusion this week and H+H has improved as 0f 04/20/24 He is going to have gastric vascular surgery 05/07/24 and has received the instructions from their service and Dr Garduno regarding his medications: Stay on Aspirin Stop Thalidimide 10 days prior procedure Stop warfarin x 5 days prior procedure No lovneox bridge Stop ocreatide injections Will Resume medications per Md instructions Denies any signs and symptoms of bleeding or bruising or clotting. Bleeding, bruising, clotting discussed Nutritional guidance given - avoid greens Fri Sat Sun Dose: 7.5mg Fri Sun and recheck Friday F/U INR: 04/26/24Friday Patient verbalizes understanding of instructions given Anti-Coag Initial Assessment Social Hx Patient Tobacco Use Status: Former Tobacco user Tobacco use type: Cigar alcohol intake: former Alcohol intake frequency: does not drink Cardiovascular Hx: HTN, Angina, [place] (PRE[place] AGE 28) and Varicose Veins (SPIDER VEINS ) Lung Disease HX: DVT/PE (MESENTERIC MULTIPLE CLOTS) Musculoskeletal Hx: Arthritis Blood Disorder Hx: Anemia GI Hx: Bleeding (GI, rectal) Neurological Hx: Serious Head Injury ( A CHILD HEAD INJURY REQUIRUIRING SURGERY ) Cancer HX: No (FAMILY HX ) Psych. 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
== END 2024-04-23 11:49 | disposition home or self-care (01) ==
LOC: HO.ACS 11:18
PROVIDERS: PCP Internal Medicine; Visit Provider Internal Medicine
DX: Z79.01 Long term (current) use of anticoagulants (principal)

== ENCOUNTER → 2024-04-23 11:18 | Outpatient (BNVA) | payer OTHER, SELFPAY | PROVIDERS: PCP Internal Medicine; Visit Provider Internal Medicine | DX: K55.059 Acute (reversible) ischemia of intestine, part and extent unspecified (principal); Z79.01 Long term (current) use of anticoagulants; Z51.81 Encounter for therapeutic drug level monitoring | CPT/HCPCS: 85610; 99211 ==

== ENCOUNTER 2024-04-26 11:23 | Outpatient (AMB) | payer OTHER, SELFPAY ==
[2024-04-26 11:29] LABS: Prothrombin Time Whole Bld POC 30.4 sec (11.1-13.5); ~PT, ~INR - Anti Coag Clinic 2.5 (0.9-1.1)
--- NOTE | 2024-04-26 11:43 | MHC.OFFVISCO ---
Intake Intake Visit Reasons: Anticoagulation Allergies No Known Allergies Allergy (Verified 04/26/24 11:24) Medication List - Last Reconciled 04/26/24 by Nolvia Trinidad RN aspirin 81 mg PO DAILY cholecalciferol (vitamin D3) 1,250 mcg PO FR ferrous sulfate 324 mg PO DAILY octreotide acetate 100 mcg subcut Q8H ondansetron 4 mg PO Q8H PRN pantoprazole 40 mg PO DAILY@0630 sucralfate (Carafate) 10 mL PO BID thalidomide 100 mg PO QPM warfarin See Protocol 7.5MG X 3 DAYS/ 5MG X 4 DAYS; Nursing Note INR: 2.5 in therapeutic range Medications and supplements reviewed- Has orders for pre-op to stop thalidomide 10 day prior, Warfarin stop x 5 days prior - [facility] INR 04/30/24- call [facility] with results Stay on Aspirin no lovenox Appears pale and states he feels his blood count is low, states his stool are still black, also on iron tablets going for Iron Infusion today, lab slip given for CBC and INR Bleeding, bruising, clotting discussed Nutritional guidance given Dose: 5mg fri/ 2.5mg x 4 days F/U INR: this friday prior surgery and warfarin hold Patient verbalizes understanding of instructions given Anti-Coag Initial Assessment Social Hx Patient Tobacco Use Status: Former Tobacco user Tobacco use type: Cigar alcohol intake: former Alcohol intake frequency: does not drink Cardiovascular Hx: HTN, Angina, [place] (PRE-[place] AGE 28) and Varicose Veins (SPIDER VEINS ) Lung Disease HX: DVT/PE (MESENTERIC MULTIPLE CLOTS) Musculoskeletal Hx: Arthritis Blood Disorder Hx: Anemia GI Hx: Bleeding (GI, rectal) Neurological Hx: Serious Head Injury ( A CHILD HEAD INJURY REQUIRUIRING SURGERY ) Cancer HX: No (FAMILY HX ) Psych. Illness/Depression: No Coding Level of Care Code Est Patient Level 1 Diagnoses Current use of anticoagulant therapy Z79.01 Assessment & Plan Assessment & Plan (1) Current use of anticoagulant therapy: Code(s): Z79.01 - radiology manager (current) use of anticoagulants Category: Medical Orders: Orders Complete Blood Count no Diff Today Z79.01 - skilled nursing (current) use of anticoagulants Prothrombin Time INR Today Z79.01 - skilled nursing (current) use of anticoagulants
== END 2024-04-26 11:53 | disposition home or self-care (01) ==
LOC: HO.ACS 11:23
PROVIDERS: PCP Internal Medicine; Visit Provider Internal Medicine
DX: Z79.01 Long term (current) use of anticoagulants (principal)

== ENCOUNTER 2024-04-26 11:23 | Outpatient (REF) | payer OTHER, SELFPAY ==
[2024-04-26 13:58] LABS: Hematocrit 31.5 % (42.0-52.0); Hemoglobin 9.5 g/dl (14.0-18.0); Mean Corpuscular HGB Conc 30.2 g/dl (31.0-36.0); Mean Corpuscular Hemoglobin 30.6 pg (27.0-33.0); Mean Corpuscular Volume 101.6 fL (80.0-98.0); Mean Platelet Volume 9.2 fL (9.4-12.4); Platelet Count 339 X10*3/uL (160-400); Red Cell Distribution Width 21.7 % (11.0-16.0); White Blood Count 8.7 X10*3/uL (4.8-10.8)
[2024-04-26 14:13] LABS: INTERNATIONAL NORM RATIO 2.7 (0.9-1.1)
== END 2024-04-26 11:24 | disposition home or self-care (01) ==
LOC: HO.LAB 11:23
PROVIDERS: PCP Internal Medicine; Visit Provider Internal Medicine
DX: Z51.81 Encounter for therapeutic drug level monitoring (principal); Z79.01 Long term (current) use of anticoagulants
CPT/HCPCS: 36415; 85027; 85610; 99211

== ENCOUNTER 2024-04-30 15:17 | Outpatient (AMB) | payer OTHER, SELFPAY ==
--- NOTE | 2024-04-30 15:05 | MHC.OFFVISCO ---
Intake Intake Visit Reasons: Anticoagulation Allergies No Known Allergies Allergy (Verified 04/30/24 14:26) Medication List - Last Reconciled 04/30/24 by Stefanie Del Toro RN aspirin 81 mg PO DAILY cholecalciferol (vitamin D3) 1,250 mcg PO FR ferrous sulfate 324 mg PO DAILY octreotide acetate 100 mcg subcut Q8H ondansetron 4 mg PO Q8H PRN pantoprazole 40 mg PO DAILY@0630 sucralfate (Carafate) 10 mL PO BID thalidomide 100 mg PO QPM warfarin See Protocol 7.5MG X 3 DAYS/ 5MG X 4 DAYS; Nursing Note Pt to ACS today with no complaints 1 week pre op for GI vascular bypass scheduled at [facility] in [place] 05/07/24 INR 3.3?out of therapeutic range of 2-3 Medications and supplements reviewed: Pt stopped Thalidomide 04/26/24 as per MD order per pt. Diet: usual diet per pt. Denies any signs and symptoms of bleeding or clotting or unusual bruising Bleeding, bruising, clotting discussed Dose: decrease today's dose to 2.5mg (5mg) and decrease tomorrow's dose to 5mg (7.5mg). Tomorrow's dose is last dose then hold for 5 days. F/U INR Date : 05/03/24?? Patient verbalizing understanding of instructions given. T/C to [facility] in [place]. INR reported and received a call back from Marlo ESPARZA who agreed with dose decrease. 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 Illness/Depression: No Coding Level of Care Code Est Patient Level 2 Diagnoses Current use of anticoagulant therapy Z79.01 Results AMB INR Fingerstick AMB INR Fingerstick 3.3 Last Edit by Stefanie Del Toro RN on 04/30/24 15:04 interface delay Assessment & Plan Assessment & Plan (1) Current use of anticoagulant therapy: Code(s): Z79.01 - intermodal dispatcher (current) use of anticoagulants Category: Medical
[2024-05-25 07:29] LABS: ~PT, ~INR - Anti Coag Clinic 3.3 (0.9-1.1)
== END 2024-04-30 15:46 | disposition home or self-care (01) ==
LOC: HO.ACS 15:17
PROVIDERS: PCP Internal Medicine; Visit Provider Internal Medicine
DX: Z79.01 Long term (current) use of anticoagulants (principal)

== ENCOUNTER → 2024-04-30 15:17 | Outpatient (BNVA) | payer OTHER, SELFPAY | PROVIDERS: PCP Internal Medicine; Visit Provider Internal Medicine | DX: K55.059 Acute (reversible) ischemia of intestine, part and extent unspecified (principal); Z79.01 Long term (current) use of anticoagulants; Z51.81 Encounter for therapeutic drug level monitoring | CPT/HCPCS: 85610; 99212 ==

== ENCOUNTER 2024-05-03 11:09 | Outpatient (AMB) | payer OTHER, SELFPAY ==
[2024-05-03 11:14] LABS: Prothrombin Time Whole Bld POC 13.6 sec (11.1-13.5); ~PT, ~INR - Anti Coag Clinic 1.1 (0.9-1.1)
--- NOTE | 2024-05-03 11:32 | MHC.OFFVISCO ---
Intake Intake Visit Reasons: Anticoagulation Allergies No Known Allergies Allergy (Verified 04/30/24 14:26) Medication List - Last Reconciled 05/03/24 by Nolvia Trinidad RN aspirin 81 mg PO DAILY cholecalciferol (vitamin D3) 1,250 mcg PO FR ferrous sulfate 324 mg PO DAILY octreotide acetate 100 mcg subcut Q8H ondansetron 4 mg PO Q8H PRN pantoprazole 40 mg PO DAILY@0630 sucralfate (Carafate) 10 mL PO BID thalidomide 100 mg PO QPM warfarin See Protocol 7.5MG X 3 DAYS/ 5MG X 4 DAYS; Nursing Note INR 1.1out of therapeutic range for surgery - his dose was decreased and held per md orders for ABD vascular surgery, Medications and supplements reviewed Patient status: pt to have ABD vascular gastro surgery - t/c to [facility] Nita DAMON orders: Warfarin hold x 5 days Remain on aspirin 05/03/24 Start lovenox as soon as able to pick it up today then bid tomorrow 05/06/24 Last dose lovenox 7 am 05/07/24 Surgery Extreme constipation orders: stop oral Iron miralax 1 scoop daily senekot 2 tabs bid Diet: enc liquids until BM Denies any signs and symptoms of bleeding or clotting or unusual bruising Bleeding, bruising, clotting discussed Nutritional guidance given: clears or liquids or soft foods until BM Dose: off warfarin F/U INR Date : none- only if resumes warfarin ?? Patient verbalizing understanding of instructions given. 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 Illness/Depression: No Coding Level of Care Code Est Patient Level 1 Diagnoses Current use of anticoagulant therapy Z79.01 Assessment & Plan Assessment & Plan (1) Current use of anticoagulant therapy: Code(s): Z79.01 - technician terminal and repeater (current) use of anticoagulants Category: Medical Medications: On Hold ferrous sulfate Hold Comment: Doctor's Order 324 mg PO DAILY 30 tabs 0RF
== END 2024-05-03 11:43 | disposition home or self-care (01) ==
LOC: HO.ACS 11:09
PROVIDERS: PCP Internal Medicine; Visit Provider Internal Medicine
DX: Z79.01 Long term (current) use of anticoagulants (principal)

== ENCOUNTER → 2024-05-03 11:09 | Outpatient (BNVA) | payer OTHER, SELFPAY | PROVIDERS: PCP Internal Medicine; Visit Provider Internal Medicine | DX: K55.059 Acute (reversible) ischemia of intestine, part and extent unspecified (principal); Z79.01 Long term (current) use of anticoagulants; Z51.81 Encounter for therapeutic drug level monitoring | CPT/HCPCS: 85610; 99211 ==

== ENCOUNTER 2024-05-03 11:15 | Outpatient (RCR) | payer OTHER, SELFPAY ==
[2024-04-19 11:37] VITALS: BP 133/84; PULSE 78; RESP 14; TEMP 36.6; O2SAT 96
[2024-04-19] MEDS: Iron Sucrose Complex 200 MG in 0.9 % Sodium Chloride 100 ML 440 MG IV (11:50)
[2024-04-19] MEDS: 0.9 % Sodium Chloride Flush 10 ML SYRINGE 5 ML IVFLUSH (12:10)
[2024-04-26 11:48] VITALS: PULSE 74; RESP 14; TEMP 36.9; O2SAT 98
[2024-04-26] MEDS: Iron Sucrose Complex 400 MG in 0.9 % Sodium Chloride 250 ML 180 MG IV (11:58)
[2024-04-26] MEDS: 0.9 % Sodium Chloride Flush 10 ML SYRINGE 5 ML IVFLUSH (13:39)
[2024-05-03 11:40] VITALS: BP 130/72; PULSE 69; RESP 14; TEMP 36.6; O2SAT 100
[2024-05-03] MEDS: Iron Sucrose Complex 400 MG in 0.9 % Sodium Chloride 250 ML 180 MG IV (11:56)
[2024-05-03] MEDS: 0.9 % Sodium Chloride Flush 10 ML SYRINGE 5 ML IVFLUSH (13:33)
== END 2024-05-03 14:04 | disposition home or self-care (01) ==
LOC: HO.INF 11:15
PROVIDERS: Visit Provider Dentist Pediatric Dentistry
DX: D62 Acute posthemorrhagic anemia (principal)
CPT/HCPCS: 96365; 96366; J1756

== ENCOUNTER 2024-05-14 11:07 | Outpatient (AMB) | payer OTHER, SELFPAY ==
[2024-05-14 11:20] LABS: Prothrombin Time Whole Bld POC 17.2 sec (11.1-13.5); ~PT, ~INR - Anti Coag Clinic 1.4 (0.9-1.1)
--- NOTE | 2024-05-14 13:04 | MHC.OFFVISCO ---
Intake Intake Visit Reasons: Anticoagulation Allergies No Known Allergies Allergy (Verified 05/14/24 11:08) Medication List - Last Reconciled 05/14/24 by Nolvia Trinidad RN aspirin 81 mg PO DAILY atorvastatin 40 mg PO DAILY cholecalciferol (vitamin D3) 1,250 mcg PO FR docusate sodium 100 mg PO DAILY enoxaparin mg subcut ferrous sulfate 324 mg PO DAILY octreotide acetate 100 mcg subcut Q8H ondansetron 4 mg PO Q8H PRN oxycodone mg PO pantoprazole 40 mg PO DAILY@0630 polyethylene glycol 3350 (Gavilax) grams PO sennosides (senna) 17.2 mg PO BID sucralfate (Carafate) 10 mL PO BID thalidomide 100 mg PO QPM warfarin See Protocol 7.5MG X 3 DAYS/ 5MG X 4 DAYS; warfarin 3 mg PO DAILY Nursing Note INR 1.4 out of therapeutic range- Medications and supplements reviewed Patient status: s/p abd surgery for vascular bypass, large midline abd inciscion with evan clean dry and intact, pt d/c to home 2 days ago, had nausea and vomiting yesterday after eating, enc to call siva bang to start with liquids then soft foods, states using tylenol and oxycodone for pain, using bowel regimine to have bowel movements, no black stools or bleeding, appetite was good in hospital but now chapis ,States only to be on warfarin x 2-3 weeks After [facility] appt he wanted to go see Dr Garduno - he stated he was tiered after walking down hallway- wheel chair provided - brought him over by wheelchair. He will call with any changes in med or health Medications or supplements: on lovneox bridge Diet: chapis- enc to call md if appetite does not improve Denies any signs and symptoms of bleeding or clotting or unusual bruising Bleeding, bruising, clotting discussed Nutritional guidance given: avoid greens - enc to increase gradually Dose: was on 2/3mg alternating - missed a dose one day then took 5mg yesterda, dose 5mg today 3mg sat sun fri and recheck friday - cont lovenox unitl stable INR 2.0 F/U INR Date: 05/18/24?? Patient verbalizing understanding of instructions given. 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 Illness/Depression: No Coding Level of Care Code Est Patient Level 1 Diagnoses Current use of anticoagulant therapy Z79.01 Results AMB INR Fingerstick AMB INR Fingerstick 1.4 Last Edit by Nolvia Trinidad RN on 05/14/24 11:21 manual entry Assessment & Plan Assessment & Plan (1) Current use of anticoagulant therapy: Code(s): Z79.01 - snf (current) use of anticoagulants Category: Medical Medications: New warfarin 5 mg See Protocol PO DAILY Ghassan Rodgers MD (AC) On Hold octreotide acetate Hold Comment: held before surgery 100 mcg subcut Q8H Nolvia Trinidad RN thalidomide Hold Comment: held before surgery 100 mg PO QPM 30 caps 0RF Nolvia Trinidad RN
== END 2024-05-14 12:13 | disposition home or self-care (01) ==
LOC: HO.ACS 11:07
PROVIDERS: PCP Internal Medicine; Visit Provider Internal Medicine
DX: Z79.01 Long term (current) use of anticoagulants (principal)

== ENCOUNTER → 2024-05-14 11:07 | Outpatient (BNVA) | payer OTHER, SELFPAY | PROVIDERS: PCP Internal Medicine; Visit Provider Internal Medicine | DX: K55.1 Chronic vascular disorders of intestine (principal); Z95.828 Presence of other vascular implants and grafts; Z79.01 Long term (current) use of anticoagulants; Z51.81 Encounter for therapeutic drug level monitoring | CPT/HCPCS: 85610; 99211 ==

== ENCOUNTER 2024-05-18 11:13 | Outpatient (AMB) | payer OTHER, SELFPAY ==
--- NOTE | 2024-05-18 11:49 | MHC.OFFVISCO ---
Intake Intake Visit Reasons: Anticoagulation Allergies No Known Allergies Allergy (Verified 05/18/24 11:49) Medication List - Last Reconciled 05/18/24 by Nolvia Trinidad RN aspirin 81 mg PO DAILY atorvastatin 40 mg PO DAILY cholecalciferol (vitamin D3) 1,250 mcg PO FR docusate sodium 100 mg PO DAILY enoxaparin mg See Protocol subcut ferrous sulfate 324 mg PO DAILY octreotide acetate 100 mcg subcut Q8H ondansetron 4 mg PO Q8H PRN pantoprazole 40 mg PO DAILY@0630 sennosides (senna) 17.2 mg PO BID sucralfate (Carafate) 10 mL PO BID thalidomide 100 mg PO QPM warfarin 5 mg See Protocol PO DAILY warfarin 3 mg See Protocol PO DAILY Nursing [facility]R?? 2.6 in therapeutic range of 2-3 Changes indicated per patient assessment questionnaire T/C to pt who states she stopped taking ibuprofen for back pain and is only taking tylenol 500mg bid. 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 Illness/Depression: No Coding Level of Care Code Warafin Pt Mnmt Anticoag Diagnoses Current use of anticoagulant therapy Z79.01 Assessment & Plan Assessment & Plan (1) Current use of anticoagulant therapy: Code(s): Z79.01 - director long term care (current) use of anticoagulants Category: Medical
--- NOTE | 2024-05-18 12:10 | MHC.OFFVISCO ---
Intake Intake Visit Reasons: Anticoagulation Allergies No Known Allergies Allergy (Verified 05/18/24 11:49) Medication List - Last Reconciled 05/18/24 by Nolvia Trinidad RN aspirin 81 mg PO DAILY atorvastatin 40 mg PO DAILY cholecalciferol (vitamin D3) 1,250 mcg PO FR docusate sodium 100 mg PO DAILY enoxaparin mg See Protocol subcut ferrous sulfate 324 mg PO DAILY octreotide acetate 100 mcg subcut Q8H ondansetron 4 mg PO Q8H PRN pantoprazole 40 mg PO DAILY@0630 sennosides (senna) 17.2 mg PO BID sucralfate (Carafate) 10 mL PO BID thalidomide 100 mg PO QPM warfarin 5 mg See Protocol PO DAILY warfarin 3 mg See Protocol PO DAILY Nursing Note INR: 2.3 in therapeutic range Medications and supplements reviewed- Keeping bowels very soft to liquid to prevent constipation -taking senNa bid and colace daily for bowel regimen- enc maybe just the senna x1 daily if having diarrhea, but to ideally discuss with GI MD plan of care *pt just started eating Friday again after avoiding to eat for a few days due to pain and nausea *pt finding he can only eat small amts at a time - soft foods and liquids enc- and to discuss with md *denies any bleeding or black stools * has gas and belching * f/u with Dr Guillory 06/14/24 * f/u with surgeon 05/24/24 Denies any signs and symptoms of bleeding or bruising or clotting. Bleeding, bruising, clotting discussed Nutritional guidance given - if unable to eat resume boost Dose: 3mg x 6 days/ 6mg x 1 day- stop lovenox F/U INR: this friday05/21/24 Patient verbalizes understanding of instructions given Anti-Coag Initial Assessment Social Hx Patient Tobacco Use Status: Former Tobacco user Tobacco use type: Cigar alcohol intake: former Alcohol intake frequency: does not drink Cardiovascular Hx: HTN, Angina, [place] and Varicose Veins Lung Disease HX: DVT/PE Musculoskeletal Hx: Arthritis Blood Disorder Hx: Anemia GI Hx: Bleeding (GI, rectal) Neurological Hx: Serious Head Injury Cancer HX: No (FAMILY HX ) Psych. Illness/Depression: No Coding Level of Care Code Est Patient Level 1 Diagnoses Current use of anticoagulant therapy Z79.01 Results AMB INR Fingerstick AMB INR Fingerstick 2.3 Last Edit by Nolvia Trinidad RN on 05/18/24 12:03 manual entry Assessment & Plan Assessment & Plan (1) Current use of anticoagulant therapy: Code(s): Z79.01 - rat exterminator (current) use of anticoagulants Category: Medical Medications: On Hold enoxaparin Hold Comment: INR 2.3 - HX OF GI BLEED IN THE RECENT PAST See Protocol subcut
[2024-05-18 12:50] LABS: Prothrombin Time Whole Bld POC 27.7 sec (11.1-13.5); ~PT, ~INR - Anti Coag Clinic 2.3 (0.9-1.1)
== END 2024-05-18 12:23 | disposition home or self-care (01) ==
LOC: HO.ACS 11:13
PROVIDERS: PCP Internal Medicine; Visit Provider Internal Medicine
DX: Z79.01 Long term (current) use of anticoagulants (principal)

== ENCOUNTER → 2024-05-18 11:13 | Outpatient (BNVA) | payer OTHER, SELFPAY | PROVIDERS: PCP Internal Medicine; Visit Provider Internal Medicine | DX: K55.1 Chronic vascular disorders of intestine (principal); Z95.828 Presence of other vascular implants and grafts; Z79.01 Long term (current) use of anticoagulants; Z51.81 Encounter for therapeutic drug level monitoring | CPT/HCPCS: 85610; 99211 ==

== ENCOUNTER 2024-05-19 10:09 | Outpatient (AMB) | payer OTHER, SELFPAY ==
--- NOTE | 2024-05-19 10:19 | A.OFFPC_ITS ---
Vital Signs 05/19/24 10:29 Height 6 ft Weight 163 lb 6 oz BMI 22.2 BP 138/90 H Blood Pressure Location Lt brachial Position Sitting Pulse 82 Pulse Source Pulse Oximeter Pulse Oximetry (%) 98 Oxygen Delivery Method Room Air Intake Visit Reasons: [facility] Intake Note: Pt states he had a procedure done at [facility] on 05/07/24 and pt states he is in a lot of pain. Pt states he is getting his evan removed at [facility] on 05/24/24. Allergies No Known Allergies Allergy (Verified 05/21/24 11:19) Medication List - Last Reconciled 05/19/24 by Ngoc Fung MD aspirin 81 mg PO DAILY atorvastatin 40 mg PO DAILY cholecalciferol (vitamin D3) 1,250 mcg PO FR docusate sodium 100 mg PO DAILY ferrous sulfate 324 mg PO DAILY octreotide acetate 100 mcg subcut Q8H ondansetron 4 mg PO Q8H PRN pantoprazole 40 mg PO DAILY@0630 sennosides (senna) 17.2 mg PO BID sucralfate (Carafate) 10 mL PO BID thalidomide 100 mg PO QPM warfarin 5 mg See Protocol PO DAILY warfarin 3 mg See Protocol PO DAILY Tobacco use date assessed: 04/22/24 Dental Screening Dental Screen Date: 04/22/24 HPI [facility] HPI Details 48-year-old gentleman with past medical history significant for mese nteric stenting and thrombosis with right hemicolectomy and recent celiac artery stenting ([facility] vascular) 02/2024 on coumadin with lovenox bridge/asa/plavix, history of hyperlipidemia, iron deficiency anemia, history of peptic ulcer disease, depression, internal hemorrhoids , with repeated admissions for acute blood loss anemia due to GI bleed likely from AVM, here today for follow-up after recent admission at [facility] in [place] where he underwent aorto SMA bypass on 05/07/[address] Russell Abdul. He was able to tolerate procedure well, but having pain over postoperative site on mid abdomen. He was discharged on oxycodone 5 mg per tablet to be taken 1 tablet every 6 hours, however he is running low on his pain medication has not been able to contact covering provider in booster to get another pain prescription refill. He does have an appointment to follow-up with Dr. Abdul on 05/24/2024 in [facility]. He has been eating small frequent meals consisting of a bland diet and soft food daily since discharge, as he is afraid of getting blocked up again. He is currently on Lovenox with Coumadin on hold, and was started on pantoprazole and atorvastatin upon discharge [facility] Medical History AVM (arteriovenous malformation) of duodenum, acquired with hemorrhage Vitamin D deficiency Mesenteric artery thrombosis CAD (coronary artery disease) Hyperlipidemia Superior mesenteric artery stenosis Celiac artery stenosis Vaccine refused by patient (~09/05/23) Cigar smoker unmotivated to quit Chronic vascular insufficiency of intestine Impaired fasting glucose Diarrhea Granular cell tumor Chronic GERD Surgical History H/O heart artery stent History of esophagogastroduodenoscopy (EGD) Hx of colectomy Hx of appendectomy Hx of colonoscopy Family History Maternal Aunt No problems noted. Maternal Aunt No problems noted. Social History Household Members: Spouse Housing: Apartment Do you presently have visiting nurse or other home services: No Alcohol intake: former Patient Tobacco Use Status: Former Tobacco user Tobacco use type: Cigar Years Smoked: 3 e-Cigarette/Vaping Use: Never Used Substance Use Type: Marijuana service: No Current occupational status: employed Current occupational exposures/hazards: No Cognitive needs: No Hearing needs: No Vision needs: No Questionnaire Thrive Questionnaire Date Thrive assessed: 04/22/24 I am a: Patient What is your living situation today?: I choose not to answer this question Within the past 12 months, did the food you bought not last and you didn't have the money to get more?: I choose not to answer this question Within the past 12 months, did you worry whether your food would run out before you got money to buy more?: I choose not to answer this question Do you have trouble paying for medicines?: No Do you have trouble getting transportation to medical appointments?: No Do you have trouble paying your heating and electricity bill?: I choose not to answer this question Do you have trouble taking care of your child, family member or friend?: I choose not to answer this question Do you have trouble with day-to-day activities such as bathing, preparing meals, shopping, managing finances, etc.?: I choose not to answer this question Are you currently unemployed and looking for a job?: I choose not to answer this question Are you interested in more education?: No Please select the resources that you would like help with: None Currently or been in a relationship where the following occur: I choose not to answer THRIVE Score: 0 AUDIT C Alcohol Use Questionnaire (AUDIT-C) 1. How often do you have a drink containing alcohol?: Never Total Score: 0 KAMILA-7 AMB Questionnaire KAMILA-7 Date KAMILA - 7 assessed: 04/22/24 Feeling nervous, anxious, or on edge: 0 = Not at all Not being able to stop or control worryin = Nearly every day Worrying too much about different things: 3 = Nearly every day Trouble relaxin = Nearly every day Being so restless that it is hard to sit still: 3 = Nearly every day Becoming easily annoyed or irritable: 3 = Nearly every day Feeling afraid as if something awful might happen: 2 = More than half the days Total KAMILA-7 score (0-4 normal; 5-9 mild; 10-14 moderate; 15-21 severe): 17 Source: Developed by Drs. Greg Hernandez, Whitley Park, Dustin Ann and colleagues, with an educational hans from [employer]. Review of Systems Const Denies chills, Reports fatigue, Denies fever(s), Denies headache(s) and Denies malaise Eyes Reports no additional complaints ENT Denies dysphagia, Denies headache(s), Denies mouth pain, Denies nasal congestion, Denies post nasal drip and Denies throat swelling Card Denies chest pain and Denies irregular heart rhythm Resp Reports as per HPI, Denies cough and Denies wheezing GI Reports as per HPI, Denies melena, Denies bloating, Denies hematochezia, Denies constipation, Denies dysphagia, Denies excessive flatus, Denies early satiety, Reports heartburn and Denies diarrhea Reports no additional complaints Musc Reports no additional complaints Skin/Breast Details: As per HP Neuro Reports no additional complaints, Reports as per HPI and Denies headache(s) Psych Reports as per HPI Endo Reports fatigue Yared/Lymph Reports as per HPI Aller/Immun Denies throat swelling and Denies wheezing Physical exam (Primary Care) Vital Signs: Last Vital Signs Pulse 82 05/19/24 10:29 BP 138/90 H 05/19/24 10:29 Pulse Ox 98 05/19/24 10:29 Oxygen Delivery Method Room Air 05/19/24 10:29 BMI result Body Mass Index 22.2 Tobacco/Smoking Status: Tobacco use Status Tobacco use date assessed 04/22/24 05/19/24 10:20 Patient Tobacco Use Status Former Tobacco user 05/19/24 10:20 Tobacco use type Cigar 05/19/24 10:20 e-Cigarette/Vaping Use Never Used 05/19/24 10:20 PHQ-9: PHQ-9 Score PHQ-9: Total score 26 05/19/24 10:35 Thrive Assessment: Date of Thrive Assessment Date Thrive assessed 04/22/24 05/19/24 10:20 Currently or been in a relationship where the following occur: I choose not to answer ACP: accompanying Const General: comfortable, no acute distress and alert Orientation/consciousness: patient oriented x3 [facility] General nose exam: Normal external nose present Face and sinus: Yes face symmetric Mouth: Normal oral and palatal mucosa present, oropharynx normal and moist mucous membranes Eyes General: appearance normal, both eyes and all related structures Periorbital: periorbital findings normal Sclerae: sclerae normal Pupils: Equal, round and reactive pupils present EOM: EOMs intact bilaterally Neck Neck: Yes full ROM, Yes no lymphadenopathy and Yes supple Resp Auscultation: clear to auscultation bilaterally Cardio Rate: regular rate Rhythm: regular rhythm Heart sounds: S1 normal heart sound present and S2 normal heart sound present GI Palpation (GI): Soft to palpation, nontender, no guarding and no masses Auscultation: normal bowel sounds Skin Other: Surgical Wound midline of abdomen with evan in place, no active drainage, or erythema from wound, slight tenderness on palpation on the edges General skin exam: no rashes or lesions noted Neuro General: patient oriented x3, gait normal, tone normal, moves all extremities, Normal light touch and pain sensation, no focal motor deficits and CN's II-XI intact bilaterally Cranial nerves: Yes Equal, round and reactive pupils present Extrem General: Yes full ROM, Yes no joint enlargement, Yes no clubbing, cyanosis or edema, Yes no calf tenderness and Yes normal gait Assessment and Plan Assessment & Plan (1) Mesenteric artery thrombosis: Code(s): K55.069 - Acute infarction of intestine, part and extent unspecified (2) Postoperative abdominal pain: Code(s): R10.9 - Unspecified abdominal pain; G89.18 - Other acute postprocedural pain (3) AVM (arteriovenous malformation) of duodenum, acquired with hemorrhage: Comment: treated with Hemospray 03/24/24 Code(s): K31.811 - Angiodysplasia of stomach and duodenum with bleeding (4) History of mesenteric infarction: Code(s): Z87.19 - Personal history of other diseases of the digestive system Plan 59-year-old male with history of DVT and prior mesenteric ischemia with SMA stenting and ileocecectomy with subsequent SMA thrombectomy , who underwent definitive mesenteric revascularization due to his high-risk for recurrent acute mesenteric ischemia. Patient underwent a Aorto- SMA bypass on 05/07/2024 at [facility] currently experiencing postoperative pain, refill prescription given for oxycodone 5 mg per tablet to take 1 twice a day as needed for severe pain, 20 tablets with no refill. He does have an appointment for follow-up with his surgeon at [facility] on 05/24/2024. Continued on docusate sodium and sennosides as needed for constipation and sucralfate as well as aspirin 81 mg daily. He was also discharged on atorvastatin 40 mg daily and pantoprazole 40 mg daily. Medications: New oxycodone Partial Fill upon patient request. 5 mg PO BID PRN 20 tabs 0RF breakthrough pain, moderate Coding Level of Care Code Est Pt Level 4 (95384) Complex EM visit Add On G2211 Diagnoses Mesenteric artery thrombosis K55.069 Postoperative abdominal pain R10.9; G89.18 AVM (arteriovenous malformation) of duodenum, acquired with hemorrhage K31.811 History of mesenteric infarction Z87.19
[2024-05-19 10:29] VITALS: BP 138/90; PULSE 82; O2SAT 98; BMI 22.2
== END 2024-05-19 11:25 | disposition home or self-care (01) ==
PROVIDERS: PCP Internal Medicine; Visit Provider Internal Medicine
DX: K55.069 Acute infarction of intestine, part and extent unspecified (principal); R10.9 Unspecified abdominal pain; G89.18 Other acute postprocedural pain; K31.811 Angiodysplasia of stomach and duodenum with bleeding; Z87.19 Personal history of other diseases of the digestive system
CPT/HCPCS: 99214; G2211

== ENCOUNTER 2024-05-21 11:14 | Outpatient (AMB) | payer OTHER, SELFPAY ==
[2024-05-21 11:27] LABS: Prothrombin Time Whole Bld POC 12.9 sec (11.1-13.5); ~PT, ~INR - Anti Coag Clinic 1.1 (0.9-1.1)
--- NOTE | 2024-05-21 12:08 | MHC.OFFVISCO ---
Intake Intake Visit Reasons: Anticoagulation Allergies No Known Allergies Allergy (Verified 05/21/24 11:19) Medication List - Last Reconciled 05/21/24 by Ann-Marie Andrade RN aspirin 81 mg PO DAILY atorvastatin 40 mg PO DAILY cholecalciferol (vitamin D3) 1,250 mcg PO FR docusate sodium 100 mg PO DAILY ferrous sulfate 324 mg PO DAILY octreotide acetate 100 mcg subcut Q8H ondansetron 4 mg PO Q8H PRN oxycodone 5 mg PO BID PRN pantoprazole 40 mg PO DAILY@0630 sennosides (senna) 17.2 mg PO BID sucralfate (Carafate) 10 mL PO BID thalidomide 100 mg PO QPM warfarin 5 mg See Protocol PO DAILY warfarin 3 mg See Protocol PO DAILY Nursing Note PT. DENIES ANY MISSED WARFARIN DOSES,CP, MED CHANGES OR SX OF BLEEDING. ABD.INCISION IS CLEAN AND DRY AND WITHOUT ANY REDNESS. PT.TO SEE SURGEON ON 05/24 WITH HOPES OF STAPLE REMOVAL AT THAT TIME. BOOST DAILY WARFARIN DOSE TO 5MGM AND RESTART BID LOVENOX PREVIOUS AND FOLLOW-UP HERE ON 05/25/24. INR AND PLAN OF CARE REPORTED TO PCP AND . OK TO RESTART THE LOVENOX PER Anti-Coag Initial Assessment Social Hx Patient Tobacco Use Status: Former Tobacco user Tobacco use type: Cigar alcohol intake: former Alcohol intake frequency: does not drink Cardiovascular Hx: HTN, Angina, [place] and Varicose Veins Lung Disease HX: DVT/PE Musculoskeletal Hx: Arthritis Blood Disorder Hx: Anemia GI Hx: Bleeding (GI, rectal) Neurological Hx: Serious Head Injury Cancer HX: No (FAMILY HX ) Psych. Illness/Depression: No Coding Level of Care Code Est Patient Level 1 Diagnoses Current use of anticoagulant therapy Z79.01 Assessment & Plan Assessment & Plan (1) Current use of anticoagulant therapy: Code(s): Z79.01 - terminal gauger supervisor (current) use of anticoagulants Category: Medical
== END 2024-05-21 16:34 | disposition home or self-care (01) ==
LOC: HO.ACS 11:14
PROVIDERS: PCP Internal Medicine; Visit Provider Internal Medicine
DX: Z79.01 Long term (current) use of anticoagulants (principal)

== ENCOUNTER → 2024-05-21 11:14 | Outpatient (BNVA) | payer OTHER, SELFPAY | PROVIDERS: PCP Internal Medicine; Visit Provider Internal Medicine | DX: K55.1 Chronic vascular disorders of intestine (principal); Z95.828 Presence of other vascular implants and grafts; Z79.01 Long term (current) use of anticoagulants; Z51.81 Encounter for therapeutic drug level monitoring | CPT/HCPCS: 85610; 99211 ==

== ENCOUNTER 2024-05-25 10:30 | Outpatient (AMB) | payer OTHER, SELFPAY ==
[2024-05-25 10:45] LABS: Prothrombin Time Whole Bld POC 21.8 sec (11.1-13.5); ~PT, ~INR - Anti Coag Clinic 1.8 (0.9-1.1)
--- NOTE | 2024-05-25 10:59 | MHC.OFFVISCO ---
Intake Intake Visit Reasons: Anticoagulation Allergies No Known Allergies Allergy (Verified 05/21/24 11:19) Medication List - Last Reconciled 05/25/24 by Nolvia Trinidad RN aspirin 81 mg PO DAILY atorvastatin 40 mg PO DAILY cholecalciferol (vitamin D3) 1,250 mcg PO FR docusate sodium 100 mg PO DAILY enoxaparin mg subcut ferrous sulfate 324 mg PO DAILY octreotide acetate 100 mcg subcut Q8H ondansetron 4 mg PO Q8H PRN oxycodone 5 mg PO BID PRN pantoprazole 40 mg PO DAILY@0630 sennosides (senna) 17.2 mg PO BID sucralfate (Carafate) 10 mL PO BID thalidomide 100 mg PO QPM warfarin 5 mg See Protocol PO DAILY warfarin 3 mg See Protocol PO DAILY Nursing Note INR 1.8 out of therapeutic range Medications and supplements reviewed Patient status: Ignacio were removed yesterday by nurse, pt thought becuase she was not the doctor he did not disclose how much pain he is still in and still has decreased appetite - he was advised to call the surgeon office, before leaving for appointment today he did not take any Tylenol or eat any thing this am, upset with him for not doing so, plus he is sleeping a lot... Medications or supplements: no changes Diet: eating 1 meal / day about 530 -6 then doesnt feel well after - enc small meals and soft foods and liquids through out the day Denies any signs and symptoms of bleeding or clotting or unusual bruising Bleeding, bruising, clotting discussed Nutritional guidance given: try kelsea to help raise the INR and his GI tract Dose: 5mg today and tomorrow and cont lovenox per md orders F/U INR Date : 05/27/24 ?? Patient and verbalizing understanding of instructions given. Anti-Coag Initial Assessment Social Hx Patient Tobacco Use Status: Former Tobacco user Tobacco use type: Cigar alcohol intake: former Alcohol intake frequency: does not drink Cardiovascular Hx: HTN, Angina, [place] and Varicose Veins Lung Disease HX: DVT/PE Musculoskeletal Hx: Arthritis Blood Disorder Hx: Anemia GI Hx: Bleeding (GI, rectal) Neurological Hx: Serious Head Injury Cancer HX: No (FAMILY HX ) Psych. Illness/Depression: No Coding Level of Care Code Est Patient Level 1 Diagnoses Current use of anticoagulant therapy Z79.01 Results AMB INR Fingerstick AMB INR Fingerstick 1.8 Last Edit by Nolvia Trinidad RN on 05/25/24 10:45 manual entry Assessment & Plan Assessment & Plan (1) Current use of anticoagulant therapy: Code(s): Z79.01 - intermediate project manager (current) use of anticoagulants Category: Medical
== END 2024-05-25 11:05 | disposition home or self-care (01) ==
LOC: HO.ACS 10:30
PROVIDERS: PCP Internal Medicine; Visit Provider Internal Medicine
DX: Z79.01 Long term (current) use of anticoagulants (principal)

== ENCOUNTER → 2024-05-25 10:30 | Outpatient (BNVA) | payer OTHER, SELFPAY | PROVIDERS: PCP Internal Medicine; Visit Provider Internal Medicine | DX: K55.1 Chronic vascular disorders of intestine (principal); Z95.828 Presence of other vascular implants and grafts; Z79.01 Long term (current) use of anticoagulants; Z51.81 Encounter for therapeutic drug level monitoring | CPT/HCPCS: 85610; 99211 ==

== ENCOUNTER 2024-05-27 09:30 | Outpatient (AMB) | payer OTHER, SELFPAY ==
--- NOTE | 2024-05-27 09:26 | MHC.OFFVISCO ---
Intake Intake Visit Reasons: Anticoagulation Allergies No Known Allergies Allergy (Verified 05/21/24 11:19) Medication List - Last Reconciled 05/27/24 by Nolvia Trinidad RN aspirin 81 mg PO DAILY atorvastatin 40 mg PO DAILY cholecalciferol (vitamin D3) 1,250 mcg PO FR docusate sodium 100 mg PO DAILY enoxaparin mg See Protocol subcut ferrous sulfate 324 mg PO DAILY octreotide acetate 100 mcg subcut Q8H ondansetron 4 mg PO Q8H PRN oxycodone 5 mg PO BID PRN pantoprazole 40 mg PO DAILY@0630 sennosides (senna) 17.2 mg PO BID sucralfate (Carafate) 10 mL PO BID thalidomide 100 mg PO QPM warfarin 5 mg See Protocol PO DAILY warfarin 3 mg See Protocol PO DAILY Nursing Note INR 1.8 out of therapeutic range Medications and supplements reviewed Patient status: Still not feeling well, has pain-enc to call surgeon Medications or supplements: no chagnes Diet: fair Denies any signs and symptoms of bleeding or clotting or unusual bruising Bleeding, bruising, clotting discussed Nutritional guidance given: eat easier foods to digest- soft foods and small amts at a time Dose: 7.5mg x 2 days/ 5mg x 5 days lovenox today only - due to hx of bleeding F/U INR Date: 1 week Patient verbalizing understanding of instructions given. Anti-Coag Initial Assessment Social Hx Patient Tobacco Use Status: Former Tobacco user Tobacco use type: Cigar alcohol intake: former Alcohol intake frequency: does not drink Cardiovascular Hx: HTN, Angina, [place] and Varicose Veins Lung Disease HX: DVT/PE Musculoskeletal Hx: Arthritis Blood Disorder Hx: Anemia GI Hx: Bleeding (GI, rectal) Neurological Hx: Serious Head Injury Cancer HX: No (FAMILY HX ) Psych. Illness/Depression: No Coding Level of Care Code Est Patient Level 1 Diagnoses Current use of anticoagulant therapy Z79.01 Assessment & Plan Assessment & Plan (1) Current use of anticoagulant therapy: Code(s): Z79.01 - middle or intermediate school principal (current) use of anticoagulants Category: Medical
[2024-05-27 09:50] LABS: Prothrombin Time Whole Bld POC 21.3 sec (11.1-13.5); ~PT, ~INR - Anti Coag Clinic 1.8 (0.9-1.1)
== END 2024-05-27 10:05 | disposition home or self-care (01) ==
LOC: HO.ACS 09:30
PROVIDERS: PCP Internal Medicine; Visit Provider Internal Medicine
DX: Z79.01 Long term (current) use of anticoagulants (principal)

== ENCOUNTER → 2024-05-27 09:30 | Outpatient (BNVA) | payer OTHER, SELFPAY | PROVIDERS: PCP Internal Medicine; Visit Provider Internal Medicine | DX: K55.1 Chronic vascular disorders of intestine (principal); Z95.828 Presence of other vascular implants and grafts; Z79.01 Long term (current) use of anticoagulants; Z51.81 Encounter for therapeutic drug level monitoring | CPT/HCPCS: 85610; 99211 ==

== ENCOUNTER 2024-06-03 10:39 | Outpatient (AMB) | payer OTHER, SELFPAY ==
--- NOTE | 2024-06-03 14:38 | MHC.OFFVISCO ---
Intake Intake Visit Reasons: Anticoagulation Allergies No Known Allergies Allergy (Verified 06/03/24 10:43) Medication List - Last Reconciled 06/03/24 by Ann-Marie Andrade RN aspirin 81 mg PO DAILY atorvastatin 40 mg PO DAILY cholecalciferol (vitamin D3) 1,250 mcg PO FR docusate sodium 100 mg PO DAILY enoxaparin mg See Protocol subcut ferrous sulfate 324 mg PO DAILY octreotide acetate 100 mcg subcut Q8H ondansetron 4 mg PO Q8H PRN oxycodone 5 mg PO BID PRN pantoprazole 40 mg PO DAILY@0630 sennosides (senna) 17.2 mg PO BID sucralfate (Carafate) 10 mL PO BID thalidomide 100 mg PO QPM warfarin 5 mg See Protocol PO DAILY warfarin 3 mg See Protocol PO DAILY Nursing Note PT.DENIES ANY CP,SOB OR SX OF BLEEDING. HE CONTINUES TO STATE THAT HE IS VERY TIRED AND FEELING WEAK. PT. HAS NO SOB AND COLOR IS GOOD. APPETITE REMAINS POOR. HE HAS PCP APPT.ON 06/14, BUT PT.AND SPOUSE PAULETTE ARE CONCERNED ABOUT BLEEDING. CALL TO PCP(NELLY) REQUESTING LABS. NELLY TO SPEAK WITH MD, AND WILL CALL PT/ WITH FURTHER DIRECTION IN MEANTIME WILL BOOST WARFARIN TO 7.5MGM TODAY AND CONTINUE THE LOVENOX. RECHECK INR TOMORROW PRIOR TO THE WEEKEND. GOOD UNDERSTANDING VERB. Anti-Coag Initial Assessment Social Hx Patient Tobacco Use Status: Former Tobacco user Tobacco use type: Cigar alcohol intake: former Alcohol intake frequency: does not drink Cardiovascular Hx: HTN, Angina, [place] and Varicose Veins Lung Disease HX: DVT/PE Musculoskeletal Hx: Arthritis Blood Disorder Hx: Anemia GI Hx: Bleeding (GI, rectal) Neurological Hx: Serious Head Injury Cancer HX: No (FAMILY HX ) Psych. Illness/Depression: No Coding Level of Care Code Est Patient Level 1 Diagnoses Current use of anticoagulant therapy Z79.01 Results AMB INR Fingerstick AMB INR Fingerstick 1.8 Last Edit by Ann-Marie Andrade RN on 06/03/24 11:05 Assessment & Plan Assessment & Plan (1) Current use of anticoagulant therapy: Code(s): Z79.01 - buttermilk drier operator (current) use of anticoagulants Category: Medical
[2024-06-04 02:16] LABS: Prothrombin Time Whole Bld POC 21.9 sec (11.1-13.5); ~PT, ~INR - Anti Coag Clinic 1.8 (0.9-1.1)
== END 2024-06-03 14:59 | disposition home or self-care (01) ==
LOC: HO.ACS 10:39
PROVIDERS: PCP Internal Medicine; Visit Provider Internal Medicine
DX: Z79.01 Long term (current) use of anticoagulants (principal)

== ENCOUNTER → 2024-06-03 10:39 | Outpatient (BNVA) | payer OTHER, SELFPAY | PROVIDERS: PCP Internal Medicine; Visit Provider Internal Medicine | DX: K55.1 Chronic vascular disorders of intestine (principal); Z95.828 Presence of other vascular implants and grafts; Z79.01 Long term (current) use of anticoagulants; Z51.81 Encounter for therapeutic drug level monitoring | CPT/HCPCS: 85610; 99211 ==

== ENCOUNTER 2024-06-04 10:34 | Outpatient (REF) | payer OTHER, SELFPAY ==
[2024-06-04 11:05] LABS: MANUAL DIFF FLAG NO
[2024-06-04 11:43] LABS: Basophils Absolute Auto 0.1 X10*3/uL (0.0-0.2); Basophils Percent Auto 1.1 % (0-2); Eosinophils Absolute Auto 0.2 X10*3/uL (0.0-0.4); Eosinophils Percent Auto 2.9 % (0-4); Hematocrit 37.5 % (42.0-52.0); Imm Gran Abs Auto 0.01 X10*3/uL (0.00-0.03); Imm Gran Pct Auto 0.2 % (0.0-0.4); Lymphocytes Absolute Auto 1.7 X10*3/uL (1.2-4.9); Lymphocytes Percent Auto 30.8 % (20-40); Mean Corpuscular Hemoglobin 30.7 pg (27.0-33.0); Mean Corpuscular Volume 95.9 fL (80.0-98.0); Mean Platelet Volume 9.5 fL (9.4-12.4); Monocytes Absolute Auto 0.6 X10*3/uL (0.1-1.2); Monocytes Percent Auto 10.8 % (2-11); Neutrophils Percent Auto 54.2 % (45-73); Platelet Count 334 X10*3/uL (160-400); Red Blood Count 3.91 X10*6/uL (4.60-5.80); Red Cell Distribution Width 16.3 % (11.0-16.0); White Blood Count 5.6 X10*3/uL (4.8-10.8)
[2024-06-04 12:29] LABS: Iron 50 mcg/dL (45-160); Percent Iron Saturation 18 % (15-50); Total Iron Binding Capacity 273 mcg/dL (228-428); Unsaturated Iron Binding 223 ug/dL
== END 2024-06-04 10:35 | disposition home or self-care (01) ==
LOC: HO.LAB 10:34
PROVIDERS: PCP Internal Medicine; Referring Provider Internal Medicine; Visit Provider Internal Medicine
DX: D50.9 Iron deficiency anemia, unspecified (principal); K55.1 Chronic vascular disorders of intestine; E78.5 Hyperlipidemia, unspecified; Z79.01 Long term (current) use of anticoagulants; Z51.81 Encounter for therapeutic drug level monitoring
CPT/HCPCS: 36415; 83540; 85025; 85610; 99211

== ENCOUNTER 2024-06-04 10:34 | Outpatient (AMB) | payer OTHER, SELFPAY ==
[2024-06-04 10:42] LABS: Prothrombin Time Whole Bld POC 25.8 sec (11.1-13.5); ~PT, ~INR - Anti Coag Clinic 2.2 (0.9-1.1)
--- NOTE | 2024-06-04 10:56 | MHC.OFFVISCO ---
Intake Intake Visit Reasons: Anticoagulation Allergies No Known Allergies Allergy (Verified 06/04/24 10:34) Medication List - Last Reconciled 06/04/24 by Ann-Marie Andrade RN aspirin 81 mg PO DAILY atorvastatin 40 mg PO DAILY cholecalciferol (vitamin D3) 1,250 mcg PO FR docusate sodium 100 mg PO DAILY enoxaparin mg See Protocol subcut ferrous sulfate 324 mg PO DAILY octreotide acetate 100 mcg subcut Q8H ondansetron 4 mg PO Q8H PRN oxycodone 5 mg PO BID PRN pantoprazole 40 mg PO DAILY@0630 sennosides (senna) 17.2 mg PO BID sucralfate (Carafate) 10 mL PO BID thalidomide 100 mg PO QPM warfarin 5 mg See Protocol PO DAILY warfarin 3 mg See Protocol PO DAILY Nursing Note OK TO STOP LOVENOX INR IS 2.2 TODAY. WILL RESUME WARFARIN AT 5MGM DAILY AND FOLLOW-UP IN 1 WEEK. PT'S APPETITE REMAINS ONLY FAIR, AND FATIGUE PERSISTS. PT.TO HAVE ORDERED CBC AFTER [facility] TODAY. PT.AND VERB.GOOD UNDERSTANDIN OF DOSING INSTR. AND AGREE TO CALL [facility] IF ANY QUESTIONS/CONCERNS ARISE. Anti-Coag Initial Assessment Social Hx Patient Tobacco Use Status: Former Tobacco user Tobacco use type: Cigar alcohol intake: former Alcohol intake frequency: does not drink Cardiovascular Hx: HTN, Angina, [place] and Varicose Veins Lung Disease HX: DVT/PE Musculoskeletal Hx: Arthritis Blood Disorder Hx: Anemia GI Hx: Bleeding (GI, rectal) Neurological Hx: Serious Head Injury Cancer HX: No (FAMILY HX ) Psych. Illness/Depression: No Coding Level of Care Code Est Patient Level 1 Diagnoses Current use of anticoagulant therapy Z79.01 Assessment & Plan Assessment & Plan (1) Current use of anticoagulant therapy: Code(s): Z79.01 - exterminator termite (current) use of anticoagulants Category: Medical
== END 2024-06-04 10:59 | disposition home or self-care (01) ==
LOC: HO.ACS 10:34
PROVIDERS: PCP Internal Medicine; Visit Provider Internal Medicine
DX: Z79.01 Long term (current) use of anticoagulants (principal)

== ENCOUNTER 2024-06-11 10:55 | Outpatient (AMB) | payer OTHER, SELFPAY ==
[2024-06-11 11:09] LABS: Prothrombin Time Whole Bld POC 36.9 sec (11.1-13.5); ~PT, ~INR - Anti Coag Clinic 3.1 (0.9-1.1)
--- NOTE | 2024-06-11 11:11 | MHC.OFFVISCO ---
Intake Intake Visit Reasons: Anticoagulation Allergies No Known Allergies Allergy (Verified 06/11/24 10:56) Medication List - Last Reconciled 06/11/24 by Stefanie Del Toro RN aspirin 81 mg PO DAILY atorvastatin 40 mg PO DAILY cholecalciferol (vitamin D3) 1,250 mcg PO FR docusate sodium 100 mg PO DAILY ferrous sulfate 324 mg PO DAILY octreotide acetate 100 mcg subcut Q8H ondansetron 4 mg PO Q8H PRN oxycodone 5 mg PO BID PRN pantoprazole 40 mg PO DAILY@0630 sennosides (senna) 17.2 mg PO BID sucralfate (Carafate) 10 mL PO BID thalidomide 100 mg PO QPM warfarin 5 mg See Protocol PO DAILY warfarin 3 mg See Protocol PO DAILY Nursing Note INR 3.1?out of therapeutic range of 2-3 Medications and supplements reviewed Patient status: pt has lost weight he states he has no appetite with pt and states she tries to get him to eat but he won't Medications or supplements: no changes Diet: usual diet/decreased appetite Denies any signs and symptoms of bleeding or clotting or unusual bruising Bleeding, bruising, clotting discussed Nutritional guidance given: to incorporate ensure or boost into his diet. He states he will try to have one can a day. Dose: 5mg X 6 days and 7.5mg X 1 day F/U INR Date : 1 week?? Patient verbalizing understanding of instructions given. Anti-Coag Initial Assessment Social Hx Patient Tobacco Use Status: Former Tobacco user Tobacco use type: Cigar alcohol intake: former Alcohol intake frequency: does not drink Cardiovascular Hx: HTN, Angina, [place] and Varicose Veins Lung Disease HX: DVT/PE Musculoskeletal Hx: Arthritis Blood Disorder Hx: Anemia GI Hx: Bleeding (GI, rectal) Neurological Hx: Serious Head Injury Cancer HX: No (FAMILY HX ) Psych. Illness/Depression: No Coding Level of Care Code Est Patient Level 1 Diagnoses Current use of anticoagulant therapy Z79.01 Results AMB INR Fingerstick AMB INR Fingerstick 3.1 Last Edit by Stefanie Del Toro RN on 06/11/24 11:02 interface delay Assessment & Plan Assessment & Plan (1) Current use of anticoagulant therapy: Code(s): Z79.01 - senior living (current) use of anticoagulants Category: Medical
== END 2024-06-11 11:16 | disposition home or self-care (01) ==
LOC: HO.ACS 10:55
PROVIDERS: PCP Internal Medicine; Visit Provider Internal Medicine
DX: Z79.01 Long term (current) use of anticoagulants (principal)

== ENCOUNTER → 2024-06-11 10:55 | Outpatient (BNVA) | payer OTHER, SELFPAY | PROVIDERS: PCP Internal Medicine; Visit Provider Internal Medicine | DX: K55.1 Chronic vascular disorders of intestine (principal); Z95.828 Presence of other vascular implants and grafts; Z79.01 Long term (current) use of anticoagulants; Z51.81 Encounter for therapeutic drug level monitoring | CPT/HCPCS: 85610; 99211 ==

== ENCOUNTER 2024-06-14 11:48 | Outpatient (AMB) | payer OTHER, SELFPAY ==
--- NOTE | 2024-06-14 11:49 | A.OFFVIS_ITS ---
Intake Visit Reasons: Per Patient - has questions for medications Intake Note: Patient has question for medications Patient have couples of questions about medication, Can he stop the medication ?? 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 Required: No Allergies No Known Allergies Allergy (Verified 06/14/24 11:49) HPI HPI Per Patient - has questions for medications: Details: 49 yr old m being called for f/u He just had aorto femoral bypass he is recovering well he is only on aspirin now he denies abdominal pain appetite is poor weight is down a few pounds no melena A/P: 1/ Latest CBC was good HGB: 12 g/dl, he is doing well, no melena PLAN: 1/ cont with pantoprazole 40 mg daily 2/ recheck CBC in 1-2 weeks, ferritin PFSH Medical History AVM (arteriovenous malformation) of duodenum, acquired with hemorrhage Vitamin D deficiency Mesenteric artery thrombosis CAD (coronary artery disease) Hyperlipidemia Superior mesenteric artery stenosis Celiac artery stenosis Vaccine refused by patient (~09/05/23) Cigar smoker unmotivated to quit Chronic vascular insufficiency of intestine Impaired fasting glucose Diarrhea Granular cell tumor Chronic GERD Surgical History H/O heart artery stent History of esophagogastroduodenoscopy (EGD) Hx of colectomy Hx of appendectomy Hx of colonoscopy Family History Maternal Aunt No problems noted. Maternal Aunt No problems noted. Social History Household Members: Spouse Housing: Apartment Do you presently have visiting nurse or other home services: No Alcohol intake: former Patient Tobacco Use Status: Former Tobacco user Tobacco use type: Cigar Years Smoked: 3 e-Cigarette/Vaping Use: Never Used Substance Use Type: Marijuana service: No Current occupational status: employed Current occupational exposures/hazards: No Cognitive needs: No Hearing needs: No Vision needs: No Telehealth Telehealth Telehealth Platform: Telephone Location of provider rendering services: practice address Location of patient: address on file Patient Identification confirmed using: Name, : Yes Telehealth method: voice only Patient verbally consented to treatment: Yes Patient verbally consented to billing insurance company: Yes Patient informed of any privacy concerns related to visit: Yes Minutes spent on Phone/Video with Pt.: 8 Assessment & Plan Assessment & Plan (1) Iron deficiency anemia: Code(s): D50.9 - Iron deficiency anemia, unspecified Category: Medical Plan: see above Coding Level of Care Code Tele Est Pt Level 3 (69463) Diagnoses Iron deficiency anemia D50.9
== END 2024-06-14 15:36 | disposition home or self-care (01) ==
LOC: HO.HGI 11:48
PROVIDERS: PCP Internal Medicine; Visit Provider Internal Medicine Gastroenterology
DX: D50.9 Iron deficiency anemia, unspecified (principal)
CPT/HCPCS: 99213

== ENCOUNTER → 2024-06-14 11:48 | Outpatient (BNVA) | payer OTHER, SELFPAY | PROVIDERS: PCP Internal Medicine; Visit Provider Internal Medicine Gastroenterology ==

== ENCOUNTER 2024-07-15 13:55 | Outpatient (AMB) | payer OTHER, SELFPAY ==
--- NOTE | 2024-07-15 14:23 | A.OFFPC_ITS ---
Vital Signs 07/15/24 14:26 Height 6 ft Weight 160 lb BMI 21.7 BP 104/70 Blood Pressure Location Rt brachial Position Sitting Pulse 82 Pulse Source Pulse Oximeter Pulse Oximetry (%) 96 Oxygen Delivery Method Room Air Intake Visit Reasons: PE Intake Note: Pt is here today for his PE: Last colonoscopy 02/02/24 Allergies No Known Allergies Allergy (Verified 07/15/24 14:53) Medication List - Last Reconciled 07/15/24 by Ngoc Fung MD aspirin 81 mg PO DAILY atorvastatin 40 mg PO DAILY cholecalciferol (vitamin D3) 1,250 mcg PO FR ondansetron 4 mg PO Q8H PRN pantoprazole 40 mg PO DAILY@0630 sennosides (senna) 17.2 mg PO BID Tobacco use date assessed: 07/15/24 Dental Screening Dental Screen Date: 07/15/24 Did you have a dental visit in the last 12 months?: No Did you have a dental problem in the last 6 months where you did not have access to dental care?: No Was dental information given to patient?: No HPI PE HPI Details 49-year-old male with history of chronic mesenteric ischemia s/p aorta superior mesenteric artery bypass grafting 05/07/2024 at [facility], has dyslipidemia, iron deficiency anemia,, here today for physical exam. He has been feeling well, with improving anemia and iron levels are within normal limits as of 06/04/2024. Patient states that he has been feeling better, but still has to force himself to eat as appetite is still poor.. [facility] Medical History AVM (arteriovenous malformation) of duodenum, acquired with hemorrhage Vitamin D deficiency Mesenteric artery thrombosis CAD (coronary artery disease) Hyperlipidemia Superior mesenteric artery stenosis Celiac artery stenosis Vaccine refused by patient (~09/05/23) Cigar smoker unmotivated to quit Chronic vascular insufficiency of intestine Impaired fasting glucose Diarrhea Granular cell tumor Chronic GERD Surgical History H/O heart artery stent History of esophagogastroduodenoscopy (EGD) Hx of colectomy Hx of appendectomy Hx of colonoscopy Family History Maternal Aunt No problems noted. Maternal Aunt No problems noted. Social History Household Members: Spouse Housing: Apartment Do you presently have visiting nurse or other home services: No Alcohol intake: former Patient Tobacco Use Status: Former Tobacco user Tobacco use type: Cigar Years Smoked: 3 e-Cigarette/Vaping Use: Never Used Substance Use Type: Marijuana service: No Current occupational status: disabled Current occupational exposures/hazards: No Cognitive needs: No Hearing needs: No Vision needs: No Questionnaire Thrive Questionnaire Date Thrive assessed: 04/05/24 I am a: Patient What is your living situation today?: I choose not to answer this question Within the past 12 months, did the food you bought not last and you didn't have the money to get more?: I choose not to answer this question Within the past 12 months, did you worry whether your food would run out before you got money to buy more?: I choose not to answer this question Do you have trouble paying for medicines?: No Do you have trouble getting transportation to medical appointments?: No Do you have trouble paying your heating and electricity bill?: I choose not to answer this question Do you have trouble taking care of your child, family member or friend?: I choose not to answer this question Do you have trouble with day-to-day activities such as bathing, preparing meals, shopping, managing finances, etc.?: I choose not to answer this question Are you currently unemployed and looking for a job?: I choose not to answer this question Are you interested in more education?: No Please select the resources that you would like help with: None Currently or been in a relationship where the following occur: I choose not to answer THRIVE Score: 0 KAMILA-7 AMB Questionnaire KAMILA-7 Date KAMILA - 7 assessed: 04/22/24 Source: Developed by Drs. Greg Hernandez, Whitley Park, Dustin Ann and colleagues, with an educational hans from [employer]. Review of Systems Const Denies chills, Denies fever(s) and Denies malaise Eyes Reports no additional complaints ENT Denies dysphagia, Denies nasal congestion and Denies post nasal drip Card Denies chest pain at rest, Denies chest pain with activity, Denies rapid heart rate, Denies irregular heart rhythm, Denies leg edema, Denies lightheadedness, Denies palpitations and Denies dyspnea Resp Denies cough, Denies dyspnea and Denies wheezing GI Denies abdominal pain, Denies melena, Denies bloating, Denies hematochezia, Denies change in bowel habits, Denies dysphagia, Denies excessive flatus and Reports heartburn (Controlled with pantoprazole) Reports no additional complaints Musc Reports no additional complaints Skin/Breast Details: Well-healed abdominal surgical wound Neuro Reports no additional complaints Psych Reports no additional complaints Endo Denies palpitations Yared/Lymph Reports no additional complaints Aller/Immun Denies wheezing Physical exam (Primary Care) Vital Signs: Last Vital Signs Pulse 82 07/15/24 14:26 BP 104/70 07/15/24 14:26 Pulse Ox 96 07/15/24 14:26 Oxygen Delivery Method Room Air 07/15/24 14:26 BMI result Body Mass Index 21.7 Tobacco/Smoking Status: Tobacco use Status Tobacco use date assessed 07/15/24 07/15/24 14:25 Patient Tobacco Use Status Former Tobacco user 07/15/24 14:23 Tobacco use type Cigar 07/15/24 14:23 e-Cigarette/Vaping Use Never Used 07/15/24 14:23 Thrive Assessment: Date of Thrive Assessment Date Thrive assessed 04/05/24 07/15/24 14:23 Currently or been in a relationship where the following occur: I choose not to answer Const General: comfortable, no acute distress and alert Orientation/consciousness: patient oriented x3 [facility] General nose exam: Normal external nose present Face and sinus: Yes face symmetric Mouth: Normal oral and palatal mucosa present, oropharynx normal and moist mucous membranes Eyes General: appearance normal, both eyes and all related structures Periorbital: periorbital findings normal Sclerae: sclerae normal Pupils: Equal, round and reactive pupils present EOM: EOMs intact bilaterally Neck Neck: Yes full ROM, Yes no lymphadenopathy and Yes supple Chest Chest palpation & inspection: normal inspection of the chest Resp Auscultation: clear to auscultation bilaterally Cardio Rate: regular rate Rhythm: regular rhythm Heart sounds: S1 normal heart sound present and S2 normal heart sound present GI Other: healed surgical scar on abdomen Palpation (GI): Soft to palpation, nontender, no guarding and no masses Auscultation: normal bowel sounds General: Yes no CVA tenderness Back/Spine/Pelvis Back: no CVA tenderness Skin General skin exam: no rashes or lesions noted Neuro General: patient oriented x3, gait normal, tone normal, moves all extremities, Normal light touch and pain sensation, no focal motor deficits and CN's II-XI intact bilaterally Cranial nerves: Yes Equal, round and reactive pupils present Extrem General: Yes full ROM, Yes no joint enlargement, Yes no clubbing, cyanosis or edema, Yes no calf tenderness and Yes normal gait Psych Appearance: grossly normal and well kempt Mental Status: mental status grossly normal Speech and movement: Normal speech and movement present Affect: normal affect Attitude: cooperative Thought process: Normal thought process present Thought content: Normal thought content present Results Reviewed Results Reviewed: Name: Seth Whelan Age/Sex: 49/M : 1975 Unit#: [id number] Attend Dr: SIVAN ALVARADO MD Re06/04/24 Status: DEP [facility] Disch: SPEC : [id number] STEVE: 06/04/24 STATUS: COMP REQ : [id number] RECD: 06/04/[address]: Ngoc Fung MD COMP: 06/04/24 ENTERED: 06/04/[address]: SIVAN ALVARADO MD ORDERED: CBC Auto Diff Test Result Flag Reference WBC 5.6 4.8-10.8 X10*3/uL RBC 3.91 # L 4.60-5.80 X10*6/uL HGB 12.0 # L 14.0-18.0 g/dl HCT 37.5 L 42.0-52.0 % MCV 95.9 80.0-98.0 fL MCH 30.7 27.0-33.0 pg MCHC 32.0 31.0-36.0 g/dl RDW 16.3 H 11.0-16.0 % PLT 334 160-400 X10*3/uL MPV 9.5 9.4-12.4 fL Neut Pct Auto 54.2 45-73 % ImGran Pct Auto 0.2 0.0-0.4 % Lymp Pct Auto 30.8 20-40 % [place] Pct Auto 10.8 2-11 % Eos Pct Auto 2.9 0-4 % Baso Pct Auto 1.1 0-2 % NRBC Pct Auto 0.0 0.0-0.2 /100WBC ANC Neut Abs # 3.0 2.0-8.3 x10*3/uL ImGran Abs Auto 0.01 0.00-0.03 X10*3/uL Lymph Abs Auto 1.7 1.2-4.9 X10*3/uL [place] Abs Auto 0.6 0.1-1.2 X10*3/uL Eos Abs Auto 0.2 0.0-0.4 X10*3/uL Baso Abs Auto 0.1 0.0-0.2 X10*3/uL NRBC Abs Auto 0.000 0.0-0.012 X10*3/uL Name: Seth Whelan Age/Sex: 49/M : 1975 Unit#: [id number] Attend Dr: SIVAN ALVARADO MD Re06/04/24 Status: DEP REF Location: .[facility] Disch: SPEC : [id number] STEVE: 06/04/24-1103 STATUS: COMP REQ : [id number] RECD: 06/04/24-[address]: Ngoc Fung MD COMP: 06/04/24-1229 ENTERED: 06/04/24-[address]: SIVAN ALVARADO MD ORDERED: IRON PROF Test Result Flag Reference Iron 50 45-160 mcg/dL TIBC 273 228-428 mcg/dL Saturation 18 15-50 % UIBC 223 ug/dL Coding Level of Care Code Est Pt Prev Care 40-64y(06114) Diagnoses Annual visit for general adult medical examination with abnormal findings Z00.01 Impaired fasting glucose R73.01 Hyperlipidemia E78.5 Vitamin D deficiency E55.9 Iron deficiency anemia D50.9 Chronic vascular insufficiency of intestine K55.1 Assessment & Plan Assessment & Plan (1) Annual visit for general adult medical examination with abnormal findings: Code(s): Z00.01 - Encounter for general adult medical examination with abnormal findings Plan: Will check appropriate labs. Recommended dental visit every 6 months and regular eye exams, at least every 2 years. Take adequate calcium in diet and vitamin-D 3 at 2000 IU per cap once a day, recommended to do self-testicular exam check for any mass. He is up-to-date with his screening colonoscopy. Up-to-date with his Tdap, refused flu and COVID vaccination (2) Impaired fasting glucose: Code(s): R73.01 - Impaired fasting glucose Category: Medical Plan: Your previous fasting blood sugars were elevated above 100 mg/dL. Impaired glucose metabolism increases the risk for developing diabetes mellitus type 2, as well as heart attack and stroke later on. Lifestyle changes that promotes weight loss, healthy eating habits, and regular exercise are important, and can prevent the progression to diabetes (3) Hyperlipidemia: Code(s): E78.5 - Hyperlipidemia, unspecified Category: Medical Plan: Will check fasting lipid panel (4) Vitamin D deficiency: Code(s): E55.9 - Vitamin D deficiency, unspecified Category: Medical Plan: Repeat vitamin-D level (5) Iron deficiency anemia: Code(s): D50.9 - Iron deficiency anemia, unspecified Category: Medical Plan: Patient advised that he has a repeat CBC ordered by Dr. Garduno already ordered. (6) Chronic vascular insufficiency of intestine: Code(s): K55.1 - Chronic vascular disorders of intestine Category: Social Hx Plan: s/p proximal aortic to mid superior mesenteric bypass graft done at [facility], doing well after surgery, has an appointment scheduled for next year [facility] Orders: Orders Glucose Fasting 07/15/24 E55.9 - Vitamin D deficiency, unspecified, E78.5 - Hyperlipidemia, unspecified, R73.01 - Impaired fasting glucose, Z00.01 - Encounter for general adult medical examination with abnormal findings Vitamin D 25-OH Total 07/15/24 E55.9 - Vitamin D deficiency, unspecified, E78.5 - Hyperlipidemia, unspecified, R73.01 - Impaired fasting glucose, Z00.01 - Encounter for general adult medical examination with abnormal findings Vitamin B12 and Folate 07/15/24 E55.9 - Vitamin D deficiency, unspecified, E78.5 - Hyperlipidemia, unspecified, R73.01 - Impaired fasting glucose, Z00.01 - Encounter for general adult medical examination with abnormal findings LDL Cholesterol Direct 07/15/24 E55.9 - Vitamin D deficiency, unspecified, E78.5 - Hyperlipidemia, unspecified, R73.01 - Impaired fasting glucose, Z00.01 - Encounter for general adult medical examination with abnormal findings
[2024-07-15 14:26] VITALS: BP 104/70; PULSE 82; O2SAT 96; BMI 21.7
== END 2024-07-15 15:18 | disposition home or self-care (01) ==
LOC: HO.HMCC 13:56
PROVIDERS: PCP Internal Medicine; Visit Provider Internal Medicine
DX: Z00.00 Encounter for general adult medical examination without abnormal findings (principal); K55.1 Chronic vascular disorders of intestine; R73.01 Impaired fasting glucose; E78.5 Hyperlipidemia, unspecified; E55.9 Vitamin D deficiency, unspecified; D50.9 Iron deficiency anemia, unspecified

== ENCOUNTER → 2024-07-15 13:55 | Outpatient (BNVA) | payer OTHER, SELFPAY | PROVIDERS: PCP Internal Medicine; Visit Provider Internal Medicine | DX: Z00.01 Encounter for general adult medical examination with abnormal findings (principal); R73.01 Impaired fasting glucose; E78.5 Hyperlipidemia, unspecified; E55.9 Vitamin D deficiency, unspecified; D50.9 Iron deficiency anemia, unspecified; K55.1 Chronic vascular disorders of intestine | CPT/HCPCS: 99396 ==

== ENCOUNTER 2024-07-22 10:22 | Outpatient (REF) | payer OTHER, SELFPAY ==
[2024-07-22 10:57] LABS: MANUAL DIFF FLAG NO
[2024-07-22 11:54] LABS: Basophils Percent Auto 0.7 % (0-2); Eosinophils Absolute Auto 0.1 X10*3/uL (0.0-0.4); Eosinophils Percent Auto 1.3 % (0-4); Hematocrit 42.3 % (42.0-52.0); Hemoglobin 13.9 g/dl (14.0-18.0); Imm Gran Abs Auto 0.01 X10*3/uL (0.00-0.03); Imm Gran Pct Auto 0.2 % (0.0-0.4); Lymphocytes Absolute Auto 1.8 X10*3/uL (1.2-4.9); Lymphocytes Percent Auto 28.8 % (20-40); Mean Corpuscular HGB Conc 32.9 g/dl (31.0-36.0); Mean Corpuscular Hemoglobin 30.2 pg (27.0-33.0); Mean Corpuscular Volume 91.8 fL (80.0-98.0); Mean Platelet Volume 9.5 fL (9.4-12.4); Monocytes Absolute Auto 0.6 X10*3/uL (0.1-1.2); Monocytes Percent Auto 9.8 % (2-11); Neutrophils Absolute Auto 3.6 x10*3/uL (2.0-8.3); Neutrophils Percent Auto 59.2 % (45-73); Platelet Count 340 X10*3/uL (160-400); Red Blood Count 4.61 X10*6/uL (4.60-5.80); Red Cell Distribution Width 15.1 % (11.0-16.0); White Blood Count 6.1 X10*3/uL (4.8-10.8)
[2024-07-22 12:35] LABS: Glucose Fasting 119 mg/dL (60-99)
[2024-07-22 12:42] LABS: Vitamin D 25-OH Total 71.8 ng/mL (>30)
[2024-07-22 12:43] LABS: Ferritin 169 ng/mL (20-250)
[2024-07-22 12:53] LABS: Folate 8.5 ng/mL (> or = 4.0); Vitamin B12 426 pg/mL (200-900)
[2024-07-24 17:18] LABS: LDL Cholesterol Direct 167 mg/dL (<100)
== END 2024-07-22 10:23 | disposition home or self-care (01) ==
LOC: HO.LAB 10:22
PROVIDERS: Absent Provider Internal Medicine Gastroenterology; PCP Internal Medicine; Visit Provider Internal Medicine
DX: Z00.01 Encounter for general adult medical examination with abnormal findings (principal); E55.9 Vitamin D deficiency, unspecified; E78.5 Hyperlipidemia, unspecified; R73.01 Impaired fasting glucose; D64.9 Anemia, unspecified; D50.9 Iron deficiency anemia, unspecified; Z00.00 Encounter for general adult medical examination without abnormal findings
CPT/HCPCS: 36415; 82306; 82607; 82728; 82746; 82947; 83721; 85025

== ENCOUNTER 2024-08-16 17:03 | Emergency (ER) | payer OTHER, SELFPAY ==
--- NOTE | ~2024-08-16 | CT_ITS ---
EXAMINATION: CT ANGIOGRAM ABDOMEN AND PELVIS CLINICAL INFORMATION: Abdominal pain vomiting. COMPARISON: March 22, 2024 TECHNIQUE: Multiple axial images were obtained through the abdomen and pelvis following the administration of 80 mL of Omnipaque 350 intravenous contrast. Images were reviewed on a dedicated 3-D workstation. This CT examination was performed using dose optimization techniques as appropriate, variously including the following: *Automated exposure control *Adjustment of mA and/or kV according to patient size (this includes techniques or standardized protocols for targeted exams where dose is matched to indication/reason for exam; i.e. extremities or head) *Use of iterative reconstruction technique DLP: 341 mGy-cm FINDINGS: LUNG BASES: The visualized lung bases are unremarkable. LIVER, GALLBLADDER, AND BILIARY TREE: The liver is normal in size, shape, and attenuation. No focal hepatic lesion or biliary ductal dilatation is present. There appears to be a small amount of layering material within the gallbladder. PANCREAS: Unremarkable. SPLEEN: Unremarkable. ADRENAL GLANDS: There is mild left adrenal gland thickening. KIDNEYS AND URETERS: The kidneys are normal in size, shape, and attenuation. No hydronephrosis, hydroureter, or calculi seen. No perinephric stranding. BLADDER: Unremarkable. GASTROINTESTINAL TRACT: The small and large bowel are unremarkable. The appendix is not seen. There are surgical clips at the base of the cecum. ABDOMINAL WALL: No significant hernia is appreciated. LYMPH NODES: Normal. VASCULAR: There is atherosclerotic plaque of the abdominal aorta without aneurysm. The celiac artery is widely patent. There is a superior mesenteric artery stent in place. Flow is not definitively seen with thin the stent. There is good collateral flow from the celiac axis to the superior mesenteric artery distribution. Flow is demonstrated within the inferior mesenteric artery. Renal arteries are patent. The iliac vessels are patent. PELVIC VISCERA: Prostate gland enlargement and calcification. OSSEOUS STRUCTURES: Unremarkable. CT/CT angio abdomen pelvis IMPRESSION: Flow is not seen within the superior mesenteric artery stent. Good collateral flow from the celiac axis to the superior mesenteric artery distribution. Fleischner guidelines were followed. Electronically signed by: Bimal Rizo MD 08/17/2024 05:57 AM [facility]
[2024-08-16 17:11] VITALS: BP 156/96; PULSE 99; RESP 18; TEMP 36.4; O2SAT 99; BMI 20.8
--- NOTE | 2024-08-16 17:15 | ECG_ITS ---
Test Reason : ABD PAIN Blood Pressure : / mmHG Vent. Rate : 080 BPM Atrial Rate : 080 BPM P-R Int : 118 ms QRS Dur : 092 ms QT Int : 332 ms P-R-T Axes : 068 -03 -14 degrees QTc Int : 382 ms Normal sinus rhythm Possible Left atrial enlargement Nonspecific T wave changes Abnormal ECG When compared with ECG of 07-APR-2024 12:42, No significant change was found Referred By: Ray Maria Electronically Signed By:Jordan Ramírez
--- NOTE | 2024-08-16 17:17 | ED.GENADULT ---
HPI - General Adult General Chief complaint: Abdominal Pain Stated complaint: vomiting Time Seen by Provider: 08/16/24 20:42 History of Present Illness ED Provider: Soledad MCNEILL narrative: The patient is a 49-year-old male who has a complicated history of abdominal surgeries. Most of his care has been at [facility]. He has had a total of 6 abdominal surgeries. Apparently he had had problems with vascular disease of his mesenteric vessels which led to bowel ischemia. He was on anticoagulation for a long time and had multiple significant episodes for GI bleeding while on anticoagulation. His most recent surgery was in April of this year at [facility] in [place]. He apparently had surgery to relieve his chronic mesenteric ischemia. I believe he had some kind of aorto SMA bypass surgery that was intended to result in mesenteric revascularization. The patient has subsequently been able to get off anticoagulation. He currently takes a baby aspirin daily. The patient says that he developed abdominal pain this morning and also had a few episodes of vomiting. He was very worried because this is the 1st time he has had abdominal pain since his surgery in April. He therefore came to the hospital for evaluation. He says that he had a normal bowel movement this morning. The bowel movement was normal in color. He has experience with GI bleeding and he says that his bowel movement this morning did not look or smell like anything associated with GI bleeding. No fever, sweats, chills. His vascular surgeon who performed his most recent surgery is Dr. Dayo Abdul. Related Data Home Medications ?Medication ?Instructions ?Recorded ?Confirmed atorvastatin 40 mg tablet 40 mg PO DAILY 05/14/24 06/11/24 sennosides 8.6 mg tablet (senna) 17.2 mg PO BID 05/14/24 06/11/24 Previous Rx's ?Medication ?Instructions ?Recorded aspirin 81 mg tablet,delayed 81 mg PO DAILY #90 tabs 02/18/24 release cholecalciferol (vitamin D3) 1,250 1,250 mcg PO FR #13 caps 06/09/24 mcg (50,000 unit) capsule pantoprazole 40 mg tablet,delayed 40 mg PO DAILY@0630 #30 tabs 07/28/24 release ondansetron 4 mg disintegrating 4 mg PO Q8H PRN nausea and 07/29/24 tablet vomiting #20 tabs Allergies Allergy/AdvReac Type Severity Reaction Status Date / Time No Known Allergies Allergy Verified 08/16/24 17:16 Review of Systems Review of Systems: Yes all other systems are reviewed and are negative [facility] Past Medical History Medical History AVM (arteriovenous malformation) of duodenum, acquired with hemorrhage Vitamin D deficiency Mesenteric artery thrombosis CAD (coronary artery disease) Hyperlipidemia 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 Maternal Aunt No problems noted. Social History Social History Household Members: Spouse Housing: Apartment Do you presently have visiting nurse or other home services: No Alcohol intake: former Patient Tobacco Use Status: Former Tobacco user Tobacco use type: Cigar Years Smoked: 3 e-Cigarette/Vaping Use: Never Used Substance Use Type: Marijuana Advance Directives: Yes Advance Directives on File: Yes Advance Directives Date on File: 05/19/24 service: No Current occupational status: disabled Current occupational exposures/hazards: No Cognitive needs: No Hearing needs: No Vision needs: No Physical Exam ED Vital Signs: Vital Signs - 24 hr 08/16/24 17:11 08/16/24 21:59 08/16/24 23:53 Temperature 97.5 F 97.9 F Pulse Rate 99 93 Respiratory Rate 18 17 16 Blood Pressure 156/96 H 149/71 H Pulse Oximetry 99 99 Oxygen Delivery Method Room Air Room Air 08/17/24 03:03 08/17/24 03:04 08/17/24 03:52 Temperature 98.3 F Pulse Rate 68 Respiratory Rate 20 20 12 Blood Pressure 138/82 Pulse Oximetry 96 Oxygen Delivery Method Room Air 08/17/24 06:12 08/17/24 08:09 08/17/24 09:12 Temperature 98.3 F 97.5 F 97.5 F Pulse Rate 61 77 77 Respiratory Rate 17 16 16 Blood Pressure 123/73 139/80 139/80 Pulse Oximetry 97 99 99 Oxygen Delivery Method Room Air Room Air Room Air BMI result Body Mass Index 20.8 Const Other: The patient is awake, alert, pleasant, cooperative. He does not appear obviously ill or in distress. HENMT Other: Face is symmetrical. Mucous membranes moist. Eyes Other: Pupils are round equal, conjunctivae are clear Neck Neck: Yes full ROM Resp Effort & Inspection: normal respiratory effort Auscultation: clear to auscultation bilaterally Cardio Rate: regular rate Rhythm: regular rhythm Heart sounds: S1 normal heart sound present and S2 normal heart sound present GI Other: There is a large midline scar from the xiphoid to the pubis symphysis. The abdomen is flat and largely soft. He has some mild tenderness in the right lower quadrant. Skin Other: Skin is dry and pale. Neuro Other: The patient is awake and alert with a normal mental status. Face is symmetrical. Speech is clear. Eye movements normal. normally. He moves his extremities normally. He seems grossly neurologically intact. Extrem Other: No peripheral edema Course Course Course Narrative: RME: 49-year-old male history of mesentery ischemia with stenting complicated by thrombectomy recent surgery at [place] for repair presents to ED for abdominal pain with vomiting. Patient denies any vomiting blood or blood in stool. Patient denies any chest pain or shortness of breath. EKG labs ordered. Charge nurse informed of patient's medical history and presentation and she states she will bring patient in the next opening bed. 7:38pm: Patient informed not to leave the ED. patient was informed we will try to get him a bed in the main ED you could get a CT scan. Patient still wanted to leave the ED. patient's left came back. Reevaluation(s) Reevaluation #1: 08/17/2024 7:30 AM patient was signed out to me by Dr. Sandoval, at this time we are waiting for a phone call back from [facility] vascular surgery. They are reviewing the CT a of the abdomen. Time: 07:49 Reevaluation #2: I discussed the case with the vascular surgeon [facility] Dl DR Grier,she tells me that she reviwed the cta abdomen she does not think that the pain is due to vascular insufficiency,she tells me that does not need any vascular intervention. at this point pt feels better normal WBC ,lactic acid is normal 0.7,he is drinking and eating.He is confortable to go home Time: 08:16 Medications Administered Discontinued Medications Generic Name Dose Route Start Last Admin Trade Name Calvin PRN Reason Stop Dose Admin Iohexol 80 ml 08/16/24 22:31 08/16/24 22:32 Iohexol 350 Mg/Ml 100 Ml Infus..Btl IV 08/16/24 22:32 80 ml ONCE ONE Administration Morphine Sulfate 2 mg 08/16/24 22:37 08/16/24 22:46 Morphine Sulfate 2 Mg/Ml Cartridge IVPUSH 08/16/24 22:38 2 mg ONCE ONE Administration Protocol Morphine Sulfate 4 mg 08/17/24 02:59 08/17/24 03:04 Morphine Sulfate 4 Mg/Ml Cartridge IVPUSH 08/17/24 03:00 4 mg ONCE ONE Administration Protocol Ondansetron HCl 4 mg 08/16/24 22:37 08/16/24 22:46 Ondansetron Hcl 4 Mg/2 Ml Vial IVPUSH 08/16/24 22:38 4 mg ONCE ONE Administration Medical Decision Making Medical Decision Making [facility] Narrative: The patient is very pleasant 49-year-old male with a complex history of unusual mesenteric vascular problems. He has had several surgeries for mesenteric ischemia. He has had mesenteric artery stenting in the past. For a long time he was on anticoagulation. Most recently he had surgery in 05/04/2024 which was intended to be definitive mesenteric revascularization. This included an aorto SMA bypass. Apparently following the surgery he was felt to no longer require anticoagulation and he has been on only a baby aspirin for the last few months. He presents today for evaluation of abdominal pain. This is the 1st time since his surgery in April when he has had significant abdominal pain. He also had vomiting. He was concerned about these symptoms and he came to the emergency room for evaluation. My clinical impression is that the patient does not seem obviously acutely ill. He looks fairly well. He is quite certain he has not had a GI bleed. He had a normal bowel movement this morning that was normal in color and odor. He has some mild tenderness on his abdomen. His labs arre also reassuring. He has a normal white count and differential. He has a normal hemoglobin. He has a normal BUN. I attempted to reach the patient's surgeon, Dr. Dayo Abdul, a vascular surgeon at [facility] in [place]. He was not on-call and unfortunately the covering surgeon was in the operating room. I have ordered a CT angiogram of the abdomen and pelvis. I will be signing the patient out to my colleague at change of shift pending the results of the CT scan. I received sign-out from my colleague Dr. Rowe - CTA took 10 hours to be read by Radiology despite multiple attempts to contact [facility] to get a scan read. - the patient received morphine. Patient states that he feels better, but still having abdominal pain. No longer vomiting. I discussed the CTA results with vascular surgery from [facility]. There is concern about the report, a clarification/addendum needs to be made regarding the patency of the vasculature. - we will request to download the patient's images to [facility] so that [facility] vascular surgery team can see the imaging. -Also, I requested an addendum of the radiology report which [facility]. I was informed that at this time it would be significantly difficult to get an addendum and it would be delayed. We were given the phone number for the cw operator. Recommendations: Give the phone number to [facility] vascular surgery team to call directly [facility]. our munitions factory worker called [facility] transfer line who will relay the message the vascular team. The imaging should be downloaded at [facility] within the next few minutes. Lactic acid 0.7 - I discussed the patient with Dr. Wallis, call back from the vascular surgery from [facility] pending, they will be reviewing the patient's imaging and decide if the patient needs to be transferred. Lab Data 08/16/24 17:32 08/16/24 17:32 Labs: Lab Results 08/16/24 08/16/24 08/17/24 Range/Units 17:32 22:39 07:00 WBC 7.1 (4.8-10.8) X10*3/uL RBC 4.66 (4.60-5.80) X10*6/uL Hgb 14.2 (14.0-18.0) g/dl Hct 42.1 (42.0-52.0) % MCV 90.3 (80.0-98.0) fL MCH 30.5 (27.0-33.0) pg MCHC 33.7 (31.0-36.0) g/dl RDW 15.4 (11.0-16.0) % Plt Count 382 (160-400) X10*3/uL MPV 9.0 L (9.4-12.4) fL Immature Gran % (Auto) 0.4 (0.0-0.4) % Neut % (Auto) 68.4 (45-73) % Lymph % (Auto) 21.9 (20-40) % Wetzel % (Auto) 8.3 (2-11) % Eos % (Auto) 0.4 (0-4) % Baso % (Auto) 0.6 (0-2) % Lymph # (Auto) 1.6 (1.2-4.9) X10*3/uL Wetzel # (Auto) 0.6 (0.1-1.2) X10*3/uL Eos # (Auto) 0.0 (0.0-0.4) X10*3/uL Baso # (Auto) 0.0 (0.0-0.2) X10*3/uL Abs Immat Gran (auto) 0.03 (0.00-0.03) X10*3/uL Absolute Neuts (auto) 4.8 (2.0-8.3) x10*3/uL Absolute Nucleated RBC 0.000 (0.0-0.012) X10*3/uL Nucleated RBC % (auto) 0.0 (0.0-0.2) /100WBC PT 11.2 (10.9-12.4) SEC INR 1.0 (0.9-1.1) APTT 33.3 (26.0-36.8) SEC Sodium 139 (135-145) mmol/L Potassium 4.1 (3.3-5.1) mmol/L Chloride 107 (96-108) mmol/L Carbon Dioxide 26 (22-29) mmol/L Anion Gap 10 L (12-20) BUN 7 L (9-16) mg/dL Creatinine 0.88 (0.5-1.4) mg/dL Estim Creat Clear Calc 100.1 Estimated GFR > 60 Random Glucose 149 H (60-115) mg/dL Lactic Acid 0.7 (0.5-2.0) mmol/L Calcium 10.3 H D (8.4-10.2) mg/dL Total Bilirubin 0.8 (0.0-1.0) mg/dL AST 16 (5-37) U/L ALT 18 (0-40) U/L Alkaline Phosphatase 82 (39-117) U/L Troponin I High Sens < 2.7 (<3.5-35.0) ng/L Total Protein 8.2 H (6.5-8.0) g/dL Albumin 4.7 (3.5-5.0) g/dL Lipase 22 (8-78) U/L Urine Color Dark Yellow Urine Appearance Clear Urine pH 5.5 (5.0-9.0) Ur Specific [place] >= 1.030 H (1.005-1.025) Urine Protein 100 (2+) H (Neg-Trace) mg/dL Urine Glucose (UA) Negative (Negative) mg/dL Urine Ketones Trace (Negative) mg/dL Urine Blood Negative (Negative) Urine Nitrite Negative (Negative) Ur Leukocyte Esterase Negative (Negative) Urine RBC 0-2 (0-2) /HPF Urine WBC 0-5 (0-5) /HPF Ur Squamous Epith Cells 0-2 (0-2) /HPF Urine Bacteria None Seen (None Seen) Hyaline Casts 3-5 (0-2) /LPF Independent Interpretation I performed an independent interpretation of an: EKG Interpretation: EKG at 17:15 shows normal sinus rhythm at 80 beats per minute. No acute ischemic changes. No change from previous EKG. Discharge Plan Discharge Clinical Impression: Abdominal pain, Vomiting Patient Disposition: Home, Self-Care Instructions: Abdominal Pain (ED) Additional Instructions: Stay on a liquid diet for 24 hour, return to the emergency room if you are worse, we spoke with the vascular surgeon at [facility], they reviewed the CT scan that we did today and they do not think your pain is related to your prior surgery. Your blood work is otherwise normal including you white count. Make sure you follow-up with [facility] make an appointment Prescriptions: No Action aspirin 81 mg tablet,delayed release (DR/EC) 81 mg PO DAILY Qty: 90 1RF cholecalciferol (vitamin D3) 1,250 mcg (50,000 unit) capsule 1,250 mcg PO FR Qty: 13 0RF pantoprazole 40 mg tablet,delayed release (DR/EC) 40 mg PO DAILY@0630 Qty: 30 2RF ondansetron 4 mg tablet,disintegrating 4 mg PO Q8H PRN (Reason: nausea and vomiting) Qty: 20 0RF atorvastatin 40 mg tablet 40 mg PO DAILY sennosides [senna] 8.6 mg tablet 17.2 mg PO BID Referrals: Ngoc Fung MD [Primary Care Provider] - 2 days Interventions: ED Discharge Assessment Last Done: 08/17/24 09:12 Discharge Date/Time: 08/17/24 09:12 Print Language: Omani
[2024-08-16 17:36] LABS: MANUAL DIFF FLAG NO
[2024-08-16 17:38] LABS: Basophils Percent Auto 0.6 % (0-2); Eosinophils Percent Auto 0.4 % (0-4); Hematocrit 42.1 % (42.0-52.0); Hemoglobin 14.2 g/dl (14.0-18.0); Imm Gran Abs Auto 0.03 X10*3/uL (0.00-0.03); Imm Gran Pct Auto 0.4 % (0.0-0.4); Lymphocytes Absolute Auto 1.6 X10*3/uL (1.2-4.9); Lymphocytes Percent Auto 21.9 % (20-40); Mean Corpuscular HGB Conc 33.7 g/dl (31.0-36.0); Mean Corpuscular Hemoglobin 30.5 pg (27.0-33.0); Mean Corpuscular Volume 90.3 fL (80.0-98.0); Monocytes Absolute Auto 0.6 X10*3/uL (0.1-1.2); Monocytes Percent Auto 8.3 % (2-11); Neutrophils Absolute Auto 4.8 x10*3/uL (2.0-8.3); Neutrophils Percent Auto 68.4 % (45-73); Platelet Count 382 X10*3/uL (160-400); Red Blood Count 4.66 X10*6/uL (4.60-5.80); Red Cell Distribution Width 15.4 % (11.0-16.0); White Blood Count 7.1 X10*3/uL (4.8-10.8)
[2024-08-16 17:43] LABS: Prothrombin Time 11.2 SEC (10.9-12.4)
[2024-08-16 17:46] LABS: Partial Thromboplastin Time 33.3 SEC (26.0-36.8)
[2024-08-16 17:53] LABS: Alanine Aminotransferase 18 U/L (0-40); Albumin Level 4.7 g/dL (3.5-5.0); Alkaline Phosphatase 82 U/L (39-117); Anion Gap 10 (12-20); Aspartate Amino Transferase 16 U/L (5-37); Bilirubin Total 0.8 mg/dL (0.0-1.0); Blood Urea Nitrogen 7 mg/dL (9-16); Calcium 10.3 mg/dL (8.4-10.2); Carbon Dioxide 26 mmol/L (22-29); Chloride 107 mmol/L (96-108); Creatinine Clr Calc Pharmacy 100.1; Estimated Glomerular Filt Rate > 60; Glucose Random 149 mg/dL (60-115); Lipase 22 U/L (8-78); Potassium 4.1 mmol/L (3.3-5.1); Sodium 139 mmol/L (135-145); Total Protein 8.2 g/dL (6.5-8.0)
[2024-08-16 18:02] LABS: Troponin-I High Sensitivity < 2.7 ng/L (<3.5-35.0)
--- NOTE | 2024-08-16 19:38 | PC.NURSE ---
Addendum entered by Darlin Ac 08/16/24 19:42: pt noted to arrive back into ed waiting room at this time. Original Note: pt entered triage, this RN instructed pt not to leave the ED and to be seen, this Rn noted pt to be exiting ED at this time.
[2024-08-16 21:59] VITALS: BP 149/71; PULSE 93; RESP 17; TEMP 36.6; O2SAT 99
[2024-08-16] MEDS: iohexoL 350 MG/ML 100 ML INFUS..BTL 80 ML IV (22:32)
[2024-08-16 22:45] LABS: Appearance Urine Clear; Color Urine Dark Yellow; Glucose Urine UA Negative (Negative); Leukocyte Esterase Urine Negative (Negative); Nitrite Urine Negative (Negative); PH 5.5 (5.0-9.0); Specific Gravity - Urine >= 1.030 (1.005-1.025); UMIC TRIGGER UACC YES; Urine Blood Negative (Negative); Urine Ketones Trace mg/dL (Negative); Urine Protein 100 (2+) mg/dL (Neg-Trace)
[2024-08-16] MEDS: ondansetron HCL 4 MG/2 ML VIAL IVPUSH (22:46)
[2024-08-16] MEDS: Morphine Sulfate 2 MG/ML CARTRIDGE IVPUSH (22:46)
[2024-08-16 22:53] LABS: Bacteria Urine None Seen (None Seen); RBC Urine 0-2 /HPF (0-2); Squamous Epithelial Cell Urine 0-2 /HPF (0-2); WBC Urine 0-5 /HPF (0-5)
[2024-08-16 23:53] VITALS: RESP 16
[2024-08-17 03:03] VITALS: BP 138/82; PULSE 68; RESP 20; TEMP 36.8; O2SAT 96
[2024-08-17 03:04] VITALS: RESP 20
[2024-08-17] MEDS: Morphine Sulfate 4 MG/ML CARTRIDGE IVPUSH (03:04)
--- NOTE | 2024-08-17 03:06 | PC.NURSE ---
Pt reported 10/10 abd pain Pt medicated per mar Plan of care ongoing.
[2024-08-17 03:52] VITALS: RESP 12
[2024-08-17 06:12] VITALS: BP 123/73; PULSE 61; RESP 17; TEMP 36.8; O2SAT 97
[2024-08-17 07:20] LABS: Lactic Acid 0.7 mmol/L (0.5-2.0)
[2024-08-17 08:09] VITALS: BP 139/80; PULSE 77; RESP 16; TEMP 36.4; O2SAT 99
[2024-08-17 09:12] VITALS: BP 139/80; PULSE 77; RESP 16; TEMP 36.4; O2SAT 99
== END 2024-08-17 09:12 | disposition home or self-care (01) ==
PROVIDERS: Emergency Medicine; Physician Assistant; Emergency Provider Emergency Medicine; PCP Internal Medicine
DX: R10.9 Unspecified abdominal pain (principal); R11.10 Vomiting, unspecified; E78.5 Hyperlipidemia, unspecified; D50.9 Iron deficiency anemia, unspecified; K31.811 Angiodysplasia of stomach and duodenum with bleeding; K55.069 Acute infarction of intestine, part and extent unspecified; E55.9 Vitamin D deficiency, unspecified; Z79.02 Long term (current) use of antithrombotics/antiplatelets; Z79.82 Long term (current) use of aspirin; Z79.899 Other long term (current) drug therapy
CPT/HCPCS: 36415; 74174; 80053; 81001; 83605; 83690; 84484; 85025; 85610; 85730; 93005; 96374; 96375; 96376; 99284; 99285; J2270; J2405; Q9967

== ENCOUNTER → 2024-08-16 17:15 | Outpatient (BNV) | payer OTHER, SELFPAY | PROVIDERS: Emergency Provider Emergency Medicine; PCP Internal Medicine; Visit Provider Internal Medicine Cardiovascular Disease | DX: R94.31 Abnormal electrocardiogram [ECG] [EKG] (principal); R10.9 Unspecified abdominal pain | CPT/HCPCS: 93010 ==

== ENCOUNTER 2024-10-04 11:27 | Outpatient (AMB) | payer OTHER, SELFPAY ==
--- NOTE | 2024-10-04 11:31 | MHC.OFFVIS ---
Vital Signs 10/04/24 11:46 Height 6 ft Weight 164 lb BMI 22.2 BP 144/88 H Blood Pressure Location Lt brachial Position Sitting Pulse 69 Intake Visit Reasons: ED f/u abdominal pain Intake Note: Seth presents in the office as a ED follow up for abdominal pains. CC: He is having pains in the chest - nausea and vomiting. Lots of acid. Carton Catcher Required: No Allergies No Known Allergies Allergy (Verified 08/16/24 17:16) HPI HPI ED f/u abdominal pain: Details: 49-year-old male with past medical history significant for 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 and recent celiac artery stenting ([facility] vascular) 02/2024 on coumadin with lovenox bridge/asa/plavix, history of hyperlipidemia, iron deficiency anemia, history of peptic ulcer disease, depression, internal hemorrhoids and smoking history who I am seeing for f/u RECAP: He had assessment for recurrent anemia. Patient had noted melenic stools for several days and HGB had been trending down -HGB today was around 5-6 g/dl and he felt weak and fatigued. He denies fevers, chills, nausea, vomiting, diarrhea, BRBPR, palpitations, sob, chest pain but does have lightheadedness. He has been compliant with octreotide a home. He spoke w/ his vasc surgeon at [facility] and talk of possible bypass graft/ He had EGD 03/24/24 with area of bleeding noted in distal duodenum treated with hemospray. LAST CTA 03/22/24: patent SMA stent, no active bleeding source seen INTERIM: he has been using a lot of THC he gets attacks of nausea, vomiting, he has been seen in ED and at [facility]< no issues with his vasculature he is not getting social -causing him anxiety he has variable sleep hot showers help EXAM: GENERAL: The patient is well developed and nontoxic. VITAL SIGNS:see workflow HEENT: Nonicteric sclerae, PERRLA, EOMI. Oropharynx clear. Moist mucous membranes. Conjunctivae appear well perfused. No thyroid mass. CHEST: Chest wall is nontender. HEART: Regular rate and rhythm without murmurs. LUNGS: Clear to auscultation bilaterally. ABDOMEN: Soft, positive bowel sounds, nontender, no organomegaly.no flank tenderness--scar in mid line SKIN: No rash, no excessive bruising, petechiae, or purpura. NEUROLOGIC: Cranial nerves II-XII intact without motor/sensory deficit. Psych: normal affect A/P: 1/periodic nausea, vomiting, taking THC< neg studies per pt from ED and [facility]< prob cannabinoid PLAN: 1/ try mirtazepine 15 mg, advised to stop THC, 2/ if sx persist then will expand work up [facility] Medical History AVM (arteriovenous malformation) of duodenum, acquired with hemorrhage Vitamin D deficiency Mesenteric artery thrombosis CAD (coronary artery disease) Hyperlipidemia Superior mesenteric artery stenosis Celiac artery stenosis Vaccine refused by patient (~09/05/23) Cigar smoker unmotivated to quit Chronic vascular insufficiency of intestine Impaired fasting glucose Diarrhea Granular cell tumor Chronic GERD Surgical History H/O heart artery stent History of esophagogastroduodenoscopy (EGD) Hx of colectomy Hx of appendectomy Hx of colonoscopy Family History Maternal Aunt No problems noted. Maternal Aunt No problems noted. Social History Household Members: Spouse Housing: Apartment Do you presently have visiting nurse or other home services: No Alcohol intake: former Patient Tobacco Use Status: Former Tobacco user Tobacco use type: Cigar Years Smoked: 3 e-Cigarette/Vaping Use: Never Used Substance Use Type: Marijuana Advance Directives Date on File: 05/19/24 service: No Current occupational status: disabled Current occupational exposures/hazards: No Cognitive needs: No Hearing needs: No Vision needs: No Physical Exam Vital Signs: Last Vital Signs Pulse 69 10/04/24 11:46 BP 144/88 H 10/04/24 11:46 BMI result Body Mass Index 22.2 Assessment & Plan Assessment & Plan (1) Cyclic vomiting syndrome: Code(s): R11.15 - Cyclical vomiting syndrome unrelated to migraine Category: Medical Plan: as above Medications: New mirtazapine take 1/2 tab for 1 week then full dose 15 mg PO BEDTIME 30 tabs 2RF Coding Level of Care Code Est Pt Level 3 (05370) Diagnoses Cyclic vomiting syndrome R11.15
[2024-10-04 11:46] VITALS: BP 144/88; PULSE 69; BMI 22.2
== END 2024-10-04 15:49 | disposition home or self-care (01) ==
PROVIDERS: PCP Internal Medicine; Visit Provider Internal Medicine Gastroenterology
DX: R11.15 Cyclical vomiting syndrome unrelated to migraine (principal)
CPT/HCPCS: 99213

== ENCOUNTER → 2024-10-04 11:27 | Outpatient (BNVA) | payer OTHER, SELFPAY | PROVIDERS: PCP Internal Medicine; Visit Provider Internal Medicine Gastroenterology | DX: R11.15 Cyclical vomiting syndrome unrelated to migraine (principal) | CPT/HCPCS: 99212 ==

== ENCOUNTER 2024-10-06 08:28 | Emergency (ER) | payer OTHER, SELFPAY ==
--- NOTE | 2024-10-06 | ECG_ITS ---
Test Reason : CHEST PAIN Blood Pressure : */* mmHG Vent. Rate : 88 BPM Atrial Rate : 88 BPM P-R Int : 110 ms QRS Dur : 84 ms QT Int : 326 ms P-R-T Axes : 71 13 -28 degrees QTcB Int : 394 ms Sinus rhythm with sinus arrhythmia with short MO Possible Left atrial enlargement T wave abnormality, consider inferior ischemia Abnormal ECG When compared with ECG of 16-Aug-2024 17:15, No significant change was found Referred By: Generic ED Physician Electronically Signed By: VINAY HER MD
--- NOTE | ~2024-10-06 | XR_ITS ---
EXAMINATION: XR CHEST CLINICAL INFORMATION: cp COMPARISON: 03/08/2024. TECHNIQUE: 2 views of the chest were obtained. FINDINGS: The cardiac, hilar, and mediastinal contours are normal. The lungs are clear bilaterally. There is no pneumothorax or pleural effusion. There is no focal osseous or soft tissue abnormality. Tiny metallic artifact projecting over the liver. This is not seen on the lateral projection. There is a stent within the SMA. XR/XR chest 2V IMPRESSION: 1. No active pulmonary disease. 2. Stent seen within the SMA. Electronically signed by: Pantera Brooks MD 10/06/2024 09:13 AM [facility]
--- NOTE | ~2024-10-06 | CT_ITS ---
EXAMINATION: CT ABDOMEN AND PELVIS WITH CONTRAST CLINICAL INFORMATION: Status post aortic bypass surgery. Severe epigastric pain COMPARISON: None available. TECHNIQUE: Multidetector volumetric images were obtained from the superior aspect of the liver through the pubic symphysis following administration 85 mL of Omnipaque 350 intravenous contrast. Sagittal and coronal reformatted images were obtained on the technologist's workstation. Oral contrast: No This CT examination was performed using dose optimization techniques as appropriate, variously including the following: *Automated exposure control *Adjustment of mA and/or kV according to patient size (this includes techniques or standardized protocols for targeted exams where dose is matched to indication/reason for exam; i.e. extremities or head) *Use of iterative reconstruction technique DLP: 549 mGy/cm. FINDINGS: LUNG BASES: The visualized lung bases are unremarkable. Heart size is normal. LIVER, GALLBLADDER, AND BILIARY TREE: The liver is normal in size, shape, and attenuation. No focal hepatic lesion or biliary ductal dilatation is present. The gallbladder is unremarkable with no evidence of radiopaque gallstones, gallbladder wall thickening, or obvious pericholecystic inflammatory changes. PANCREAS: Unremarkable. SPLEEN: Unremarkable. ADRENAL GLANDS: Unremarkable. KIDNEYS AND URETERS: The kidneys are normal in size, shape, and attenuation. No hydronephrosis, hydroureter, or calculi seen. No perinephric stranding. BLADDER: Unremarkable. GASTROINTESTINAL TRACT: There is scattered stool and gas in colon without distention. The proximal small bowel loops are dilated distended with mild mural thickening. Appendix is not visualized. The surgical sutures in the right lower quadrant right from surgical resection of cecum, distal ileum and appendix. There is nonspecific mild mural thickening involving the distal small bowel segment. ABDOMINAL WALL: No significant hernia is appreciated. LYMPH NODES: Normal. VASCULAR: The abdominal aorta is of normal caliber. There is superior mesenteric artery stent. No contrast seen within distended suggestive of occlusion or thrombosis. The celiac artery is of larger caliber likely supplying mid and distal SMA distribution by collaterals. The small bowel mural thickness could be secondary to 6 early ischemic signs. No pneumatosis seen. PELVIC VISCERA: The prostate gland is normal size. There is no free fluid or free air. OSSEOUS STRUCTURES: No aggressive lytic or sclerotic process seen. CT/CT abdomen pelvis w IV con IMPRESSION: No significant abnormality. Diffuse small bowel distention with mural thickening extending to the recommend small bowel follow-through or CT small bowel evaluation with oral contrast. SMA stent appears thrombosed with secondary and tertiary branches of SMA supplied by collateral vessels. Fleischner guidelines were followed. Electronically signed by: Barry Hilton MD 10/06/2024 02:30 PM EST
--- NOTE | 2024-10-06 07:41 | ECG_ITS ---
Test Reason : CHEST PAIN Blood Pressure : */* mmHG Vent. Rate : 69 BPM Atrial Rate : 69 BPM P-R Int : 120 ms QRS Dur : 84 ms QT Int : 340 ms P-R-T Axes : 51 30 -11 degrees QTcB Int : 364 ms Normal sinus rhythm Normal ECG When compared with ECG of 06-Oct-2024 08:45, No significant change was found Referred By: Carole Jackson Electronically Signed By: VINAY HER MD
[2024-10-06 08:32] VITALS: BP 129/79; PULSE 98; RESP 16; TEMP 36.2; O2SAT 100; BMI 20.7
[2024-10-06 08:57] LABS: MANUAL DIFF FLAG NO
[2024-10-06 08:59] LABS: Basophils Percent Auto 0.5 % (0-2); Eosinophils Percent Auto 0.2 % (0-4); Hematocrit 39.9 % (42.0-52.0); Hemoglobin 13.4 g/dl (14.0-18.0); Imm Gran Abs Auto 0.02 X10*3/uL (0.00-0.03); Imm Gran Pct Auto 0.3 % (0.0-0.4); Lymphocytes Absolute Auto 1.4 X10*3/uL (1.2-4.9); Lymphocytes Percent Auto 22.7 % (20-40); Mean Corpuscular HGB Conc 33.6 g/dl (31.0-36.0); Mean Corpuscular Hemoglobin 30.8 pg (27.0-33.0); Mean Corpuscular Volume 91.7 fL (80.0-98.0); Mean Platelet Volume 9.1 fL (9.4-12.4); Monocytes Absolute Auto 0.6 X10*3/uL (0.1-1.2); Monocytes Percent Auto 9.6 % (2-11); Neutrophils Percent Auto 66.7 % (45-73); Platelet Count 376 X10*3/uL (160-400); Red Blood Count 4.35 X10*6/uL (4.60-5.80)
[2024-10-06 09:22] LABS: Alanine Aminotransferase 17 U/L (0-40); Albumin Level 4.5 g/dL (3.5-5.0); Anion Gap 9 (12-20); Aspartate Amino Transferase 16 U/L (5-37); Bilirubin Total 1.3 mg/dL (0.0-1.0); Blood Urea Nitrogen 10 mg/dL (9-16); Carbon Dioxide 26 mmol/L (22-29); Chloride 106 mmol/L (96-108); Creatinine Clr Calc Pharmacy 109.3; Estimated Glomerular Filt Rate > 60; Glucose Random 175 mg/dL (60-115); Potassium 3.9 mmol/L (3.3-5.1); Sodium 137 mmol/L (135-145); Total Protein 8.3 g/dL (6.5-8.0)
[2024-10-06 09:23] LABS: Troponin-I High Sensitivity < 2.7 ng/L (<3.5-35.0)
[2024-10-06 09:24] LABS: Alkaline Phosphatase 88 U/L (39-117)
[2024-10-06 09:39] VITALS: BP 146/78; PULSE 96; RESP 18; TEMP 36.5; O2SAT 100
[2024-10-06 09:57] LABS: Influenza A PCR NEGATIVE (Negative); Influenza B PCR NEGATIVE (Negative); Resp Syncy Virus RNA Qual PCR NEGATIVE (Negative); SARS COV2 PCR INHOUSE NEGATIVE (Negative)
--- NOTE | 2024-10-06 12:24 | ED.CHESTPAIN ---
HPI - Chest Pain General Chief Complaint: Chest Pain Stated Complaint: Chest Pain Time Seen by Provider: 10/06/24 11:57 Source: patient, family and [employer] retailer sales consultant Mode of arrival: ambulatory Limitations: no limitations History of Present Illness ED Provider: DR. 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 No nausea, no vomiting, no diarrhea, no fever, no chills. No lower extremity swelling or tenderness. Related Data Home Medications ?Medication ?Instructions ?Recorded ?Confirmed atorvastatin 40 mg tablet 40 mg PO DAILY 05/14/24 06/11/24 sennosides 8.6 mg tablet (senna) 17.2 mg PO BID 05/14/24 06/11/24 Previous Rx's ?Medication ?Instructions ?Recorded ondansetron 4 mg disintegrating 4 mg PO Q8H PRN nausea and 07/29/24 tablet vomiting #20 tabs lansoprazole 30 mg capsule,delayed 30 mg PO DAILY #90 caps 09/07/24 release aspirin 81 mg tablet,delayed 81 mg PO DAILY #90 tabs 09/10/24 release mirtazapine 15 mg tablet 15 mg PO BEDTIME #30 tabs 10/04/24 guaifenesin 200 mg/5 mL oral liquid 200 mg (5 mL) PO Q4H PRN cough 10/06/24 #118 mL oxycodone 5 mg tablet 5 mg PO Q8H PRN pain #5 tabs 10/06/24 Allergies Allergy/AdvReac Type Severity Reaction Status Date / Time No Known Allergies Allergy Verified 10/06/24 08:36 Review of Systems Review of Systems: All other systems are reviewed and are negative Constitutional: Reports as per HPI and Reports no additional constitutional complaints Eyes: Reports as per HPI and Reports no additional eye complaints Reports system reviewed and no additional complaints, except as documented Cardiovascular: Reports as per HPI and Reports no additional cardiovascular complaints Respiratory: Reports as per HPI and Reports no additional respiratory complaints Gastrointestinal: Reports as per HPI and Reports no additional gastrointestinal complaints Genitourinary: Reports no additional female genitourinary complaints Musculoskeletal: Reports no additional musculoskeletal complaints Skin/Breast: Reports system reviewed and no additional complaints, except as docu Psychiatric: Reports no additional psychiatric complaints Endocrine: Reports no additional endocrine complaints Hematologic/Lymphatic: Reports no additional hematologic/lymphatic complaints Allergic/Immunologic: Reports no additional allergic/immunologic complaints Reports system reviewed and no additional complaints, except as documented and Reports Abnormal speech present PMFSH Past Medical History Medical History AVM (arteriovenous malformation) of duodenum, acquired with hemorrhage Vitamin D deficiency Mesenteric artery thrombosis CAD (coronary artery disease) Hyperlipidemia 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 Maternal Aunt No problems noted. Social History Social History Household Members: Spouse Housing: Apartment Do you presently have visiting nurse or other home services: No Alcohol intake: former Patient Tobacco Use Status: Former Tobacco user Tobacco use type: Cigar Years Smoked: 3 e-Cigarette/Vaping Use: Never Used Substance Use Type: Marijuana Advance Directives: Yes Advance Directives on File: Yes Advance Directives Date on File: 05/19/24 service: No Current occupational status: disabled Current occupational exposures/hazards: No Cognitive needs: No Hearing needs: No Vision needs: No Physical Exam Vital Signs: Vital Signs: Last Vital Signs Temp 99.2 F 10/06/24 15:02 Pulse 82 10/06/24 15:02 Resp 16 10/06/24 15:02 BP 139/89 10/06/24 15:02 Pulse Ox 100 10/06/24 15:02 O2 Del Method Room Air 10/06/24 15:02 BMI result Body Mass Index 20.7 Vital signs have been reviewed and appear to be correct. Blood pressure elevated. Heart rate normal. Respiratory rate normal. Temperature normal. Oxygen saturation normal. Appearance: Alert. Oriented X3. No acute distress. Head: Normal external exam. Normocephalic. Atraumatic. No Soriano signs noted. No raccoon eyes noted Eyes: PERRLA. EOMI. Conjunctiva and sclera normal. Eyelids normal. ENT: TM's Normal. Pharynx normal. Uvula midline. Moist mucous membranes. No trismus noted. No drooling noted. No muffled voice noted. Neck: Normal inspection. Neck supple. FROM. No adenopathy. Thyroid Normal. No meningeal signs. No neck mass noted. CVS: Normal heart rate and rhythm. Heart sound normal. No murmurs noted. Pulses normal throughout. Respiratory: No respiratory distress. Painless inspiration. Breath sounds normal. No wheezes/rales/rhonchi noted. Chest nontender. No accessory muscle usage noted or decreased air movement noted. Abdomen: Soft and nontender. Bowel sounds normal in all 4 quadrants. No distention noted. No organomegaly noted. No visible injury noted. Back: No CVA tenderness. Full range of motion noted. Skin: Skin warm and dry. Normal skin color. Normal skin turgor. No rashes/lesions/lacerations noted. Extremities: No lower extremity edema. Extremities exhibit normal range of motion. Extremities nontender. Neuro: Oriented X 3. Cranial nerve exam: II-XII are grossly intact No motor deficit. No sensory deficit. Reflexes normal. Course Reevaluation(s) Reevaluation #1: 49-year-old male with chest pain x2 days, monitor and storage bin tender are negative x2 with no EKG ischemic changes, chest x-ray showed no acute intrathoracic pathology, no risk for pulmonary embolism with negative D-dimer. CT of the abdomen and pelvis show no acute intra-abdominal pathology, Will discharge the patient with coughing medication and pain medication with follow-up with PCP. Time: 15:54 Medications Administered Discontinued Medications Generic Name Dose Route Start Last Admin Trade Name Freq PRN Reason Stop Dose Admin Iohexol 100 ml 10/06/24 14:10 10/06/24 14:11 Iohexol 350 Mg/Ml 100 Ml Infus..Btl IV 10/06/24 14:11 85 ml ONCE ONE Administration Morphine Sulfate 1 mg 10/06/24 12:21 10/06/24 13:23 Morphine Sulfate 2 Mg/Ml Cartridge IVPUSH 10/06/24 12:22 1 mg ONCE ONE Administration Protocol Medical Decision Making Differential Diagnosis Differential Diagnoses: The differential diagnosis associated with the presentation includes (ACS, pulmonary embolism pneumonia, pneumothorax, pleural effusion, intra-abdominal pathology, electrolyte derangement, severe anemia, chest wall pain.) Admission/Observation Consideration of admission/observation: Escalation of care including admission/observation considered Lab Data MDM Lab Attestation statement: I reviewed the patient's lab results. 10/06/24 08:53 10/06/24 08:53 Labs: Lab Results 10/06/24 10/06/24 Range/Units 08:53 12:12 WBC 6.0 (4.8-10.8) X10*3/uL RBC 4.35 L (4.60-5.80) X10*6/uL Hgb 13.4 L (14.0-18.0) g/dl Hct 39.9 L (42.0-52.0) % MCV 91.7 (80.0-98.0) fL MCH 30.8 (27.0-33.0) pg MCHC 33.6 (31.0-36.0) g/dl RDW 15.0 (11.0-16.0) % Plt Count 376 (160-400) X10*3/uL MPV 9.1 L (9.4-12.4) fL Immature Gran % (Auto) 0.3 (0.0-0.4) % Neut % (Auto) 66.7 (45-73) % Lymph % (Auto) 22.7 (20-40) % [place] % (Auto) 9.6 (2-11) % Eos % (Auto) 0.2 (0-4) % Baso % (Auto) 0.5 (0-2) % Lymph # (Auto) 1.4 (1.2-4.9) X10*3/uL [place] # (Auto) 0.6 (0.1-1.2) X10*3/uL Eos # (Auto) 0.0 (0.0-0.4) X10*3/uL Baso # (Auto) 0.0 (0.0-0.2) X10*3/uL Abs Immat Gran (auto) 0.02 (0.00-0.03) X10*3/uL Absolute Neuts (auto) 4.0 (2.0-8.3) x10*3/uL Absolute Nucleated RBC 0.000 (0.0-0.012) X10*3/uL Nucleated RBC % (auto) 0.0 (0.0-0.2) /100WBC Sodium 137 (135-145) mmol/L Potassium 3.9 (3.3-5.1) mmol/L Chloride 106 (96-108) mmol/L Carbon Dioxide 26 (22-29) mmol/L Anion Gap 9 L (12-20) BUN 10 (9-16) mg/dL Creatinine 0.80 (0.5-1.4) mg/dL Estim Creat Clear Calc 109.3 Estimated GFR > 60 Random Glucose 175 H (60-115) mg/dL Calcium 10.0 (8.4-10.2) mg/dL Total Bilirubin 1.3 H (0.0-1.0) mg/dL AST 16 (5-37) U/L ALT 17 (0-40) U/L Alkaline Phosphatase 88 (39-117) U/L Troponin I High Sens < 2.7 < 2.7 (<3.5-35.0) ng/L Total Protein 8.3 H (6.5-8.0) g/dL Albumin 4.5 (3.5-5.0) g/dL Influenza Type A (PCR) NEGATIVE (Negative) Influenza Type B (PCR) NEGATIVE (Negative) RSV RNA Qual (PCR) NEGATIVE (Negative) SARS-CoV-2 RNA (RT-PCR) NEGATIVE (Negative) Independent Interpretation I performed an independent interpretation of an: Plain X-Ray (Chest: No acute intrathoracic pathology.) and CT Scan (Abdomen and pelvis: No acute intra abdominal pathology.) Radiology Impression Discussion of test interpretation with radiology: I have reviewed the radiologist's reading. Discharge Plan Discharge Clinical Impression: Non-cardiac chest pain, Chest wall pain Patient Disposition: Home, Self-Care Instructions: Chest Wall Pain (ED) Prescriptions: New oxycodone 5 mg tablet 5 mg PO Q8H PRN (Reason: pain) Qty: 5 0RF Rx Instructions: Partial Fill upon patient request. guaifenesin 200 mg/5 mL liquid 200 mg PO Q4H PRN (Reason: cough) Qty: 118 0RF No Action ondansetron 4 mg tablet,disintegrating 4 mg PO Q8H PRN (Reason: nausea and vomiting) Qty: 20 0RF lansoprazole 30 mg capsule,delayed release(DR/EC) 30 mg PO DAILY Qty: 90 1RF aspirin 81 mg tablet,delayed release (DR/EC) 81 mg PO DAILY Qty: 90 1RF mirtazapine 15 mg tablet 15 mg PO BEDTIME Qty: 30 2RF Rx Instructions: take 1/2 tab for 1 week then full dose atorvastatin 40 mg tablet 40 mg PO DAILY sennosides [senna] 8.6 mg tablet 17.2 mg PO BID Referrals: Ngoc Fung MD [Primary Care Provider] - Print Language: Tongan
[2024-10-06 12:37] LABS: Troponin-I High Sensitivity < 2.7 ng/L (<3.5-35.0)
[2024-10-06 12:43] VITALS: BP 132/77; PULSE 76; RESP 16; TEMP 37.1; O2SAT 99
[2024-10-06] MEDS: Morphine Sulfate 2 MG/ML CARTRIDGE 1 MG IVPUSH (13:23)
--- OUTSIDE RECORDS SUMMARY | 2024-10-06 14:07 | XMS_ITS | Encounter Summary ---
Author Organization [facility] Address [address] [place] [address] Care Team Providers Care Mechanical Applications Engineer Name Role Phone Ngoc Fung MD Primary Care Provider Encounter Details Date Type Department Care Team (Late st Contact Info) Description 08/20/2024 Telephone [facility] Vascular Surgery [address] [place] [address] Beverage Inspection Machine Tender: Dayo Wynn MD [address] [place] [address] Social History Tobacco Use Types Packs/Day Years Used Date Smoking Tobacco: Former Cigarettes 0.3 5 0 11/18/2017 - 11/18/2022 Smokeless Tobacco: Never Alcohol Use Standard Drinks/Week Comments Not Currently 0 (1 standard drink = 0.6 oz pur e alcohol) [facility] Utilities Answer Date Recorded In the past 12 months has e [employer], gas, oil, or water [employer] threatened to shut off services in your home? No 05/09/2024 Hunger Vital Sign Answer Date Recorded Within the past 12 months, y ou worried that your food would run out before you got the money to buy more. Never true 05/09/20 24 Within the past 12 months, t he food you bought just didn't last and you didn't have money to get more. Never true 05/09/2024 Transportation Answer Date Recorded In the past 12 months, has l ack of reliable transportation kept you from medical appointments, meetings, work or from getting things needed for daily living? No 05/09/2024 Housing Answer Date Recorded Housing Risk Low 2 05/09/2024 Housing Risk Medium Not on file 05/09/2024 Housing Risk High Not on file 05/09/2024 What is your living situation today? [facility] 05/09/2024 Sex and Gender Information Value Date Recorded Sex Assigned at Male 05/07/2024 8:07 AM EDT Legal Sex Male 12:17 PM EDT Gender Identity Male 05/07/2024 8:07 AM EDT Sexual Orientation Not on file documented as of this encounter Miscellaneous Notes * Telephone Encounter - Alexandria Michael - 09/09/2024 9:26 AM EST Msg not needed documented in this encounter Plan of Treatment Upcoming Encounters Date Type Department Care Team (Late st Contact Info) Description 11/22/2024 9:30 AM EDT Appointment [facility] CT Scan [address] [place] [address] Dayo Abdul MD [address] [place] [address] 11/22/2024 10:00 AM EDT Follow-Up [facility] Vascular Surgery [address] [place] [address] Beverage Inspection Machine Tender: Dayo Wynn MD [address] [place] [address] 12/20/2024 10:15 AM EDT Appointment [facility] V[facility] [address] [place] [address] Dayo Abdul MD [address] [place] [id number] 12/20/2024 11:00 AM EDT Follow-Up [facility] Building Vascular Surgery [address] [place] [id number] Beverage Inspection Machine Tender: Dayo Wynn MD [address] [place] [id number] documented as of this encounter Visit Diagnoses Not on filedocumented in this encounter Care Teams Mechanical Applications Engineer Relationship Specialty Start Date End Date Ngoc Fung MD [address] [place] [id number] PCP - General Internal Medicine 09/19/22 documented as of this encounter
--- OUTSIDE RECORDS SUMMARY | 2024-10-06 14:07 | XMS_ITS | Referral Summary ---
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 patient medications and allergieswere reviewed. The patient is competent. The risks and benefits of the procedure and the sedation optionsand risks were discussed with the patient. Allquestions were answered and informed consent was obtained. Patient identification and proposed procedure were verified by the physician, the nurse, theanesthetist and the proof technician in the pre-procedure area in the procedure room in the endoscopy suite. MentalStatus Examination: alert and oriented. AirwayExamination: normal oropharyngeal airway and neck mobility. Respiratory Examination: clear to auscultation. CV Examination: normal. Prophylactic Antibiotics: The patient does not require prophylactic antibiotics. Prior Anticoagulants: The patient has taken Eliquis (apixaban), last dose was 2 days prior toprocedure. ASA Grade Assessment: IV - A patient with severe systemic disease that is a constant threat to life. After reviewing the risks and benefits, the patient was deemed in satisfactory condition to undergo the procedure. The anesthesia plan was to use monitored anesthesia care (MAC). Immediately prior to administration of medications, the patient was re-assessed for adequacy to receive sedatives. The heart rate, respiratory rate, oxygen saturations, blood pressure, adequacy of pulmonary ventilation,and response to care were monitored throughout the procedure. The physical status of the patient was re-assessed after the procedure. After I obtained informed consent, the scope was passed under direct vision. Throughout theprocedure, the patient's blood pressure, pulse, and oxygen saturations were monitored continuously. The Colonoscope was introduced through the anus and advanced to the ileocolonic anastomosis. The colonoscopy was performed without difficulty. The patient tolerated the procedure well. Findings: There was evidence of a prior end-to-side ileo-colonic anastomosis in the ascending colon. This was patent. A continuous linear area of nonbleeding ulcerated, friable mucosawith stigmata of recent bleeding was present near the anastomosisaffecting the colonic tissue, with a larger ulcer at the colonic blind end.This was reviewed with surgical team during procedure. A 3 mm polyp was found in the anastomosis. The polyp was sessile. Hemorrhoids were found on perianal exam. Impression: - End-to-side ileo-colonic anastomosis in the ascending colon - A continuous linear area of nonbleedingulcerated, friable mucosa with stigmata of recent bleeding was present near the anastomosis affecting the colonic tissue, with a larger ulcer at the colonic blindend. This was reviewed with surgical team duringprocedure - One 3 mm polyp at the anastomosis. - Hemorrhoids found on perianal exam. - No specimens collected. Recommendation: - Repeat colonoscopy at appointment to be scheduled for polypectomy and complete evaluation. - Follow up with surgical team for furthermanagement of ulceration noted at the site of anastomosis. Anthony Thomas, 08/15/2023 4:39:16 PM This report has been signed electronically. Number of Addenda: 0 Note Initiated On: 08/15/2023 3:15 PM Anthony Thomas MD PhD PROVATION PROCEDURES Final Result from Last 3 Months or Most Recently Relevant to Health Maintenance Insurance [facility] MEDICAID Advance Directives Documents on File Type Date Recorded Patient Industrial Education Instructor Expl anation Health Care Proxy 07/24/2023 2:11 PM Vince Zeng * Full Code (Latest Code Status on File) Date Activated Date Inactivated Comments 05/07/2024 8:21 AM 05/12/2024 8:46 PM * Full Code Date Activated Date Inactivated Comments 02/14/2024 9:42 AM 02/18/2024 8:45 PM * Full Code Date Activated Date Inactivated Comments 08/12/2023 9:02 PM 08/20/2023 8:28 PM * Full Code Date Activated Date Inactivated Comments 07/30/2023 4:53 PM 08/05/2023 3:24 PM * Full Code Date Activated Date Inactivated Comments 07/20/2023 10:16 PM 07/30/2023 4:53 PM Healthcare Agents on File Name Relationship Healthcare Agent Relationshi p Communication Vince Zeng Spouse Health Care Agent Care Teams Web Operations Administrator Relationship Specialty Start Date End Date Ngoc Fung MD [address] [place] [address] PCP - General Internal Medicine 09/19/22
--- OUTSIDE RECORDS SUMMARY | 2024-10-06 14:07 | XMS_ITS | Encounter Summary ---
Author Organization [facility] Address [address] [place] [address] Care Team Providers Care Access Representative Name Role Phone Ngoc Fung MD Primary Care Provider Reason for Visit * Reason Comments Med Change Request Encounter Details Date Type Department Care Team (Late st Contact Info) Description 09/11/2023 Refill [facility] [address] [place] [address] Gina Wyatt, DO [address] [place] [address] Social History Tobacco Use Types Packs/Day Years Used Date Smoking Tobacco: Former Cigarettes 0.3 5 0 11/18/2017 - 11/18/2022 Smokeless Tobacco: Never Sex and Gender Information Value Date Recorded Sex Assigned at Male 05/07/2024 8:07 AM EDT Legal Sex Male 12:17 PM EDT Gender Identity Male 05/07/2024 8:07 AM EDT Sexual Orientation Not on file documented as of this encounter Plan of Treatment Upcoming Encounters Date Type Department Care Team (Late st Contact Info) Description 11/22/2024 9:30 AM EDT Appointment [facility] CT Scan [address] [place] [address] Dayo Abdul MD [address] [place] [address] 11/22/2024 10:00 AM EDT Follow-Up [facility] Vascular Surgery [address] [place] [address] Clinical Research Monitor: Dayo Wynn MD [address] [place] [address] 12/20/2024 10:15 AM EDT Appointment [facility] Vascular Lab [address] [place] [address] Dayo Abdul MD [address] [place] [address] 12/20/2024 11:00 AM EDT Follow-Up [facility] Vascular Surgery [address] [place] [address] Clinical Research Monitor: Dayo Wynn MD [address] [place] [address] documented as of this encounter Visit Diagnoses Not on filedocumented in this encounter Care Teams Access Representative Relationship Specialty Start Date End Date Ngoc Fung MD [address] [place] [address] PCP - General Internal Medicine 09/19/22 documented as of this encounter
--- OUTSIDE RECORDS SUMMARY | 2024-10-06 14:07 | XMS_ITS | Encounter Summary ---
Author Organization [facility] Address [address] [place] [address] Care Team Providers Care Marketing Professional Name Role Phone Ngoc Fung MD Primary Care Provider Encounter Details Date Type Department Care Team (Late st Contact Info) Description 11/07/2022 Orders Only [facility] [address] [place] [address] Selam Hinojosa, EXPANDED FUNCTION DENTAL ASSISTANT [address] [place] [address] Social History Tobacco Use Types Packs/Day Years Used Date Smoking Tobacco: Every Day Cigarettes 0.3 5 Smokeless Tobacco: Never Comments:2-3 cigarettes kamran y Sex and Gender Information Value Date Recorded Sex Assigned at Male 05/07/2024 8:07 AM EDT Legal Sex Male 12:17 PM EDT Gender Identity Male 05/07/2024 8:07 AM EDT Sexual Orientation Not on file documented as of this encounter Plan of Treatment Upcoming Encounters Date Type Department Care Team (Late st Contact Info) Description 11/22/2024 9:30 AM EDT Appointment [facility] CT Scan [address] [place] [address] Dayo Abdul MD [address] [place] [address] 11/22/2024 10:00 AM EDT Follow-Up [facility] Vascular Surgery [address] [place] [address] Saw Filer: Dayo Wynn MD [address] [place] [address] 12/20/2024 10:15 AM EDT Appointment [facility] Vascular Lab [address] [place] [address] Dayo Abdul MD [address] [place] [address] 12/20/2024 11:00 AM EDT Follow-Up [facility] Vascular Surgery [address] [place] [address] Saw Filer: Dayo Wynn MD [address] [place] [address] documented as of this encounter Visit Diagnoses Not on filedocumented in this encounter Care Teams Marketing Professional Relationship Specialty Start Date End Date Ngoc Fung MD [address] [place] [address] PCP - General Internal Medicine 09/19/22 documented as of this encounter
--- OUTSIDE RECORDS SUMMARY | 2024-10-06 14:07 | XMS_ITS | Encounter Summary ---
Author Organization [facility] Address [address] [place] [address] Care Team Providers Care Hide Measuring Machine Operator Name Role Phone Ngoc Fung MD Primary Care Provider Encounter Details Date Type Department Care Team (Late st Contact Info) Description 10/31/2022 Orders Only [facility] [address] [place] [address] Selam Hinojosa, REALTIME CAPTIONER [address] [place] [address] Claudication of left lower extremity (HCC) (Primary Dx) Social History Tobacco Use Types Packs/Day Years [...] Info) Description 11/22/2024 9:30 AM EDT Appointment [facility] CT Scan [address] [place], [place] [phone] Dayo Abdul MD [address] [place], [place] [phone] 11/22/2024 10:00 AM EDT Follow-Up [facility] Vascular Surgery [address] [place] [address] Repair Service Clerk: Dayo Wynn MD [address] [place] [address] 12/20/2024 10:15 AM EDT Appointment [facility] Vascular Lab [address] [place] [address] Dayo Abdul MD [address] [place] [address] 12/20/2024 11:00 AM EDT Follow-Up [facility] Vascular Surgery [address] [place] [address] Repair Service Clerk: Dayo Wynn MD [address] [place] [address] documented as of this encounter Results * Due to [place] state law, this organization might not be sharing negative HIV tests. * Ankle/Brachial Index and Arterial Waveform Analysis (Vasc Lab) (11/06/2022 8:21 AM EST) Pressure Dorsalis Pedis Arterial Left 103 mmHg Pressure Dorsalis Pedis Arterial Right 130 mmHg Pressure Posterior Tibial Arterial Left 112 mmHg Pressure Posterior Tibial Arterial Right 133 mmHg Index Dorsalis Pedis Arterial Left 0.91 Index Dorsalis Pedis Arterial Right 1.15 Index Posterior Tibial Arterial Left 0.99 Index Posterior Tibial Arterial Right 1.18 Pressure Brachial Right 108 mmHg Pressure Brachial Left 113 mmHg Pressure Brachial all 113.00 mmHg Anatomical Region Laterality Modality Vascular Ultrasound Narrative 11/12/2022 5:32 PM EST ?? Ankle/brachial index and normal Doppler waveforms indicated no evidence of arterial insufficiency at rest on the right. ?? Ankle/brachial index and normal Doppler waveforms indicated no evidence of arterial insufficiency at rest on the left. WAYNE Right Lower Extremity: Doppler waveform: normal Severity of Arterial Insufficiency by WAYNE: normal Left Lower Extremity: Doppler waveform: normal Severity of Arterial Insufficiency by WANYE: normal Tech Comments C/o of claudication in calves bilaterally us Selam Hinojosa NP CV VASCULAR PROCEDURES Fin al Result documented in this encounter Visit Diagnoses Diagnosis Claudication of left lower extremity (HCC)- Primary Claudication of left lower extremity (HCC) documented in this encounter Care Teams Hide Measuring Machine Operator Relationship Specialty Start Date End Date Ngoc Fung MD [address] [place] [address] PCP - General Internal Medicine 09/19/22 documented as of this encounter
--- OUTSIDE RECORDS SUMMARY | 2024-10-06 14:07 | XMS_ITS | Encounter Summary ---
Author Organization [facility] Address [address] [place] [address] Care Team Providers Care Senior Qualitative Researcher Name Role Phone Ngoc Fung MD Primary Care Provider Reason for Visit * Reason Comments Med Change Request Encounter Details Date Type Department Care Team (Late st Contact Info) Description 08/12/2023 Refill [facility] [address] [place] [address] Len Davis MD [address] [facility] [place] [address] Social History Tobacco Use Types Packs/Day Years [...] encounter Miscellaneous Notes * Telephone Encounter - Len Davis MD - 08/15/2023 9:18 AM EST Pt is readmitted to hospital documented in this encounter Plan of Treatment Upcoming Encounters Date Type Department Care Team (Late st Contact Info) Description 11/22/2024 9:30 AM EDT Appointment [facility] CT Scan [address] [place] [address] Dayo Abdul MD [address] [place] [address] 11/22/2024 10:00 AM EDT Follow-Up [facility] Vascular Surgery [address] [place] [address] Access Clerk: Dayo Wynn MD [address] [place] [address] 12/20/2024 10:15 AM EDT Appointment [facility] Vascular Lab [address] [place] [address] Dayo Abdul MD [address] [place] [address] 12/20/2024 11:00 AM EDT Follow-Up [facility] Vascular Surgery [address] [place] [address] Access Clerk: Dayo Wynn MD [address] [place] [address] documented as of this encounter Visit Diagnoses Not on filedocumented in this encounter Care Teams Senior Qualitative Researcher Relationship Specialty Start Date End Date Ngoc Fung MD [address] [place] [address] PCP - General Internal Medicine 09/19/22 documented as of this encounter
--- OUTSIDE RECORDS SUMMARY | 2024-10-06 14:07 | XMS_ITS | Clinical Summary ---
Author Organization [facility] Address [address] [place] [address] Care Team Providers Care Cyber Instructor Name Role Phone Ngoc Fung MD Primary Care Provider Allergies No known active allergies Medications pantoprazole DR (PROTONIX) 40 mg tablet Take 1 tablet (40 mg total) by mouth 2 times a day. 180 tablet 3 Active aspirin chewable tablet 81 mg Chew [...] day. 90 tablet 05/12/2024 4:20 PM EDT 4 Active docusate sodium (COLACE) 100 mg capsule [...] Problem Noted Date Diagnosed Date Mesenteric ischemia ([facility]/HCC) 02/14/2024 Melena 10/27/2023 Assessment & Plan (10/27/2023 [...] any more episodes of melena. Last Hb 09/06 was stable. Pt tolerating his po diet [...] Gard[place]. I have send a message to clinic scheduler to cancer the colonoscopy with Dr. Beck [...] with surgery who rec no acute interventions. Vasc recommend resuming AC as able No overt [...] by anesthesia acute pain service. Add hydromorphone POWER GENERATION EQUIPMENT REPAIRER to current analgesic regimen -Mobilize out of [...] 07/20/202308/05 Leukocytosis 07/20/2023 02/18/2024 Elevated bilirubin 07/20/2023 3 Encounters Date Type Department Care Team Description 08/23/2024 11:00 AM EST Follow-Up [facility] Vascular Surgery [address] [place] [address] Registered Associate: Dayo Wynn MD Chronic mesenteric ischemia (HCC) (Primary Dx) 08/20/2024 Telephone [facility] Vascular Surgery [address] [place] [address] Registered Associate: Dayo Wynn MD 08/19/2024 Documentation [facility] Vascular Surgery [address] [place] [address] Registered Associate: Daisy Morris PA 08/16/2024 Orders Only [facility] - External Imaging [address] [place] [address] Radiology, External 08/16/2024 Orders Only [facility] - External Imaging [address] [place] [address] Radiology, External from Last 3 Months Family History Medical History Relation Name Comments Diabetes Brother Heart disease Brother Heart disease Father Diabetes Mother Heart disease Mother Relation Name Status Comments Brother Alive Father Mother Social History Tobacco Use Types Packs/Day Years Used Date Smoking Tobacco: Former Cigarettes 0.3 5 0 11/18/2017 - 11/18/2022 Smokeless Tobacco: Never Tobacco Cessation:Counseling Given: Not Answered Alcohol Use Standard Drinks/Week Comments Not Currently 0 (1 standard drink = 0.6 oz pur e alcohol) [facility] Utilities Answer Date Recorded In the past [...] Info) Description 11/22/2024 9:30 AM EDT Appointment [facility] CT Scan [address] [place] [address] Dayo Abdul MD [address] [place] [address] 11/22/2024 10:00 AM EDT Follow-Up [facility] Vascular Surgery [address] [place] [address] Registered Associate: Dayo Wynn MD [address] [place] [address] 12/20/2024 10:15 AM EDT Appointment [facility] Vascular Lab [address] [place] [address] Dayo Abdul MD [address] [place] [address] 12/20/2024 11:00 AM EDT Follow-Up [facility] Vascular Surgery [address] [place] [address] Registered Associate: Dayo Wynn MD [address] [place] [address] Health Maintenance Due Date Last Done Comments Cologuard 1975 FOBT / Fit Test 1975 HIV Screening 1975 Hepatitis C Screening 1975 Sigmoidoscopy 1975 Hepatitis B Vaccines (1 of 3 - 19+ 3-dose series) 1994 COVID-19 Vaccine ( season) 2024 Influenza Vaccine (#1) 2024 Alcohol/Substance Use Screening 09/15/2024 Depression Screening and Follow-Up 09/15/2024 [facility] [employer] [employer] Annual Screening 09/15/2024 05/09/2024 DTaP,Tdap,and Td Vaccines (2 - Td or Tdap) 11/30/2031 11/29/2021 Colon Cancer Screening 08/15/2033 Colonoscopy 08/15/2033 08/15/2023, 1209/2022, 08/15/2023 RSV Vaccine (60+ years old and patients) (1 - 1-dose 75+ series) 2050 Abdominal Aortic Aneurysm (AAA) Screening Completed 06/14/2024, 03/08/2024, 02/14/2024, Additional history exists Pneumococcal Vaccine: Pediatric (0-5 Years) and At-Risk Patients (6-64 Years) Aged Out No longer eligible based on patient's age to complete this topic Medical Devices Implanted Type Area Air Liaison And Special Staff Device Identifier Shelf Expiration Date Model / Serial / Lot Graft Vascular Hemashield 8mm X 60cm - [id number] - [id number] Implanted:Qty: 1 on 05/07/2024 by Dayo Abdul MD at [facility] Graft N/A: Aorta Mavent [facility] 11/22/2027 [id number] / [id number] / System Closure And Repair Suture-Mediated Perclose Prostyle - [id number] - [id number] Implanted:Qty: 1 on 10/31/2022 by Dayo Abdul MD at [facility] Implant Right: Groin [employer] [id number] 07/15/2024 [id number] / [id number] / [id number] System Closure And Repair Suture-Mediated Perclose Prostyle - [id number] - [id number] Implanted:Qty: 1 on 10/31/2022 by Dayo Abdul MD at [facility] Implant Right: Groin [employer] [id number] 07/15/2024 [id number] / [id number] / [id number] Device Closure Vascular Plug 6fr Angio-Seal Vip - S0 - [id number] Implanted:Qty: 1 on 02/13/2023 by Dayo Abdul MD at [facility] Implant Right: Groin [employer] [id number] 10/15/2023 [id number] / [id number] / [id number] System Closure And Repair Suture-Mediated Perclose Prostyle - [id number] Implanted:Qty: 2 on 07/20/2023 by Santos Willis MD at [facility] Implant [employer] 03/14/2025 [id number] 3 / / [id number] System Closure And Repair Suture-Mediated Perclose Prostyle - [id number] Implanted:Qty: 3 on 02/14/2024 by Santos Willis MD at [facility] Implant Right: Groin [employer] 10/15/2025 [id number] / / [id number] System Stent Vascular Self Expanding Over The Wire Sterile Innova [id number] - S0 - [id number] Implanted:Qty: 1 on 10/31/2022 by Dayo Abdul MD at [facility] Stent N/A: Abdomen SignalSet [id number] 12/06/2026 [id number] / 0 / [id number] Stent Icast Covered [id number] - [id number] - [id number] Implanted:Qty: 1 on 10/31/2022 by Dayo Abdul MD at [facility] Stent N/A: Abdomen Kurve TechnologyT FatRedCouch [facility] [id number] 07/18/2025 [id number] / [id number] / Stent Icast Covered 7mm X 22mm X 120cm - [id number] - [id number] Implanted:Qty: 1 on 07/20/2023 by Santos Willis MD at [facility] Stent Kurve [employer]T [employer] [facility] 05/30/2026 [id number] / [id number] / Description:Implanted in SMA Graft Stent Vbx Balloon Expandable Endoprosthesis Reduced Profile [id number] 11mm Max Post-Dilation With Heparin Catheter [id number] Chapin Viabahn - [id number] - [id number] Implanted:Qty: 1 on 02/14/2024 by Santos Willis MD at [facility] Stent N/A: Arterial W L GORE 08/14/2026 [id number] / [id number] / Description:SMA Procedures * Due to [place] state law, this organization might not be sharing negative HIV tests. Procedure Name Priority Date/Time Associated Diagnosis Comments AMB EXTERNAL ANGIOGRAM, OUTSIDE RESULT 08/16/2024 AMB EXTERNAL ANGIOGRAM, OUTSIDE RESULT 08/16/2024 CT ANGIOGRAM ABDOMEN PELVIS W CONTRAST Routine 06/14/2024 10:23 AM EDT Chronic mesenteric ischemia (HCC) COLONOSCOPY 08/15/2023 from Last 3 Months or Most Recently Relevant to Health Maintenance Results * Due to [place] state law, this organization might not be sharing negative HIV tests. * Angiogram, Outside Result (08/16/2024) Only the most recent of2 resultswithin the time period is included. Anatomical Region Laterality Modality Other 08/16/2024 us Onbase Scan [facility] AMB EXTERNAL RESULT PROCEDURE S Final Result [...] obtain the completed interpretation. ? Workstation ID: [id number] Narrative 06/15/2024 4:29 PM EDT EXAMINATION: CT [...] postsurgical from prior interventions. ??There is associated htfp-na-zsigfxbl stenosis. The proximal superficial and profunda femoral [...] ORGANS/BLADDER: Unremarkable. BONES: Unremarkable. Resulting Agency Comment [id number] Procedure Note Adelso West MD - 06/15/2024 [...] be postsurgical from priorinterventions. There is associated rolo-bh-qyfpdqud stenosis. The proximal superficial and profunda femoral [...] possible to obtain thecompleted interpretation. Workstation ID: [id number] Jose Johnston NP [facility] CT PROCEDURES Final Result * COLONOSCOPY (08/15/2023) Narrative Procedure Note Anthony Thomas MD PhD - 08/15/2023 3:15 PM EST [facility] Gastroenterology Patient Name: Pete Hui Procedure Date: 08/15/2023 3:15 PM Date of : 1975 Admit Type: Inpatient Age: 48 Room: [place] [address] Gender: Male Note Status: Finalized Attending MD: [...] the physician, the nurse, theanesthetist and the electromechanical assembly technician in the pre-procedure area in the [...] Most Recently Relevant to Health Maintenance Insurance [employer] Advance Directives Documents on File Type Date Recorded Patient Truss Maker Expl anation Health Care Proxy 07/24/2023 2:11 [...] Zeng Spouse Health Care Agent Care Teams Cyber Instructor Relationship Specialty Start Date End Date Ngoc Fung MD [address] [place] [address] PCP - General Internal Medicine 09/19/22
[2024-10-06] MEDS: iohexoL 350 MG/ML 100 ML INFUS..BTL IV (14:11)
[2024-10-06 15:02] VITALS: BP 139/89; PULSE 82; RESP 16; TEMP 37.3; O2SAT 100
[2024-10-06 16:56] VITALS: BP 115/66; PULSE 81; RESP 14; TEMP 37; O2SAT 100
== END 2024-10-06 16:57 | disposition home or self-care (01) ==
PROVIDERS: Registered Nurse Emergency; Emergency Provider Emergency Medicine; PCP Internal Medicine
DX: R07.89 Other chest pain (principal); R10.13 Epigastric pain; I49.8 Other specified cardiac arrhythmias; Z79.899 Other long term (current) drug therapy; Z03.818 Encounter for observation for suspected exposure to other biological agents ruled out
CPT/HCPCS: 0241U; 36415; 71046; 74177; 80053; 84484; 85025; 93005; 96374; 99284; J2270; Q9967

== ENCOUNTER → 2024-10-06 08:45 | Outpatient (BNV) | payer OTHER, SELFPAY | PROVIDERS: Emergency Provider Emergency Medicine; PCP Internal Medicine; Visit Provider Internal Medicine Cardiovascular Disease | DX: R07.9 Chest pain, unspecified (principal) | CPT/HCPCS: 93010 ==

== ENCOUNTER → 2024-10-06 08:55 | Outpatient (BNV) | payer OTHER, SELFPAY | PROVIDERS: PCP Internal Medicine; Visit Provider Radiology Diagnostic Radiology | DX: R10.13 Epigastric pain (principal); R07.9 Chest pain, unspecified; Z95.1 Presence of aortocoronary bypass graft | CPT/HCPCS: 71046; 74177 ==

== ENCOUNTER 2024-11-26 09:14 | Outpatient (REF) | payer OTHER, SELFPAY ==
--- NOTE | ~2024-11-26 | FL_ITS ---
EXAMINATION: XR BARIUM SWALLOW CLINICAL INFORMATION: Dysphagia COMPARISON: None available. TECHNIQUE: Routine upright barium swallow with thick barium and barium coated solid and crackers was performed. Thin barium was administered in prone lying position. FINDINGS: Following oral administration of thick barium and barium coated solid cracker there is normal propagation bolus from the oral cavity through the pharynx, esophagus and the stomach without any obstruction, narrowing or stricture. There is no laryngeal penetration or aspiration seen. No extrinsic compression. On placing patient prone lying and oral administration of thin barium there is normal distention of esophagus. No intraluminal filling defect or extrinsic compression seen. No gastroesophageal reflux or hiatal hernia seen in supine or decubitus views. FLUOROSCOPY TIME: 1 minute 39 seconds DOSE AREA PRODUCT: 1129 uGy-m2 (microgray-meter squared) FL/FL barium swallow IMPRESSION: Unremarkable barium swallow exam. Electronically signed by: Barry Hilton MD 11/26/2024 12:37 PM EDT
--- OUTSIDE RECORDS SUMMARY | 2024-11-26 10:01 | XMS_ITS | Encounter Summary ---
Author Organization [facility] Address [address] [place] [address] Care Team Providers Care Shipfitter Helper Name Role Phone Ngoc Fung MD Primary Care Provider Encounter Details Date Type Department Care Team (Late st Contact Info) Description 10/31/2022 Orders Only [address] [address] Selam Hinojosa, MICA [employer] HAND [address] [place] [address] Claudication of left lower extremity (HCC) (Primary [...] Care Team (Late st Contact Info) Description 12/20/2024 10:15 AM EDT Appointment [facility] ACC Vascular Lab [address] [place], [place] [phone] Dayo Abdul MD [address] [place], [place] [phone] 12/20/2024 11:00 AM EDT Follow-Up [facility] Building Vascular Surgery [address] [place] [address] Legal Counsel: Dayo Wynn MD [address] [place] [phone] 11/28/2025 10:15 AM EDT Appointment [facility] Vascular Lab [address] [place] [address] Dayo Abdul MD [address] [place] [phone] 11/28/2025 11:20 AM EDT Follow-Up [place] [facility] Vascular Surgery [address] [place] [address] Legal Counsel: Dayo Wynn MD [address] [place] [phone] documented as of this encounter Results * Due to [place] state law, this organization might not be [...] Severity of Arterial Insufficiency by WAYNE: normal Tech Comments C/o of claudication in calves bilaterally us Selam Hinojosa MICA [employer] CV VASCULAR PROCEDURES Fin al Result documented in this encounter Visit Diagnoses Diagnosis Claudication of left lower extremity (HCC)- Primary Claudication of left lower extremity (HCC) documented in this encounter Care Teams Shipfitter Helper Relationship Specialty Start Date End Date Ngoc Fung MD [address] [place] [address] PCP - General Internal Medicine 09/19/22 documented as of this encounter
--- OUTSIDE RECORDS SUMMARY | 2024-11-26 10:01 | XMS_ITS | Encounter Summary ---
Author Organization [facility] Address [address] [place] [address] Care Team Providers Care Grinder Set Up Operator Name Role Phone Ngoc Fung MD Primary Care Provider Reason for Referral * Cardiac Diagnostic Testing (Routine) - Authorized Specialty Diagnoses / Procedures Referred By Contac t Referred To Contact Diagnoses Chest pain, unspecified type Procedures ECG 12 lead Dayo Abdul MD [address] [place] [address] Phone: tel: fax: Referral ID Status Reason Start Date Expiration Date V isits Requested Visits Authorized [id number] Authorized 11/22/2024 05/24/2026 1 1 Reason for Visit * Consultation (Routine) - Authorized Specialty Diagnoses / Procedures Referred By Contac t Referred To Contact Vascular Surgery Diagnoses fu to cta no labs needed Procedures FOLLOW UP Dayo Abdul MD [address] [place] [phone] Phone: tel: fax: Referral ID Status Reason Start Date Expiration Date V isits Requested Visits Authorized [id number] Authorized 11/22/2024 05/24/2026 6 6 Encounter Details Date Type Department Care Team (Late st Contact Info) Description 11/22/2024 10:00 AM EDT Follow-Up [facility] Vascular Surgery [address] [place] [address] Personnel Placement Specialist: Dayo Wynn MD [address] [place] [phone] Chronic mesenteric ischemia (HCC) (Primary Dx); Chest pain, unspecified type Social History Tobacco Use Types Packs/Day Years Used Date Smoking Tobacco: Former Cigarettes 0.3 5 0 11/18/2017 - 11/18/2022 Smokeless Tobacco: Never Alcohol Use Standard Drinks/Week Comments Not Currently 0 (1 standard drink = 0.6 oz pur e alcohol) [facility] Utilities Answer Date Recorded In the [...] on file documented as of this encounter Last Filed Vital Signs Vital Sign Reading Time Taken Comments Blood Pressure 149/87 11/22/2024 10:17 AM EDT Pulse 72 11/22/2024 10:17 AM EDT Temperature 36.8 ??C (98.2 ??F) 11/22/2024 10:17 AM E DT Respiratory Rate 16 11/22/2024 10:17 AM EDT Oxygen Saturation 100% 11/22/2024 10:17 AM EDT Inhaled Oxygen Concentration - - Weight 68.9 kg (152 lb) 11/22/2024 10:17 AM EDT Height 182.9 cm (6') 11/22/2024 10:17 AM EDT Body Mass Index 20.61 11/22/2024 10:17 AM EDT documented in this encounter Progress Notes * Imelda Srivastava MD - 11/22/2024 10:14 AM EDT Division of Vascular and Endovascular Surgery Return Visit Clinic Note HISTORY OF PRESENT ILLNESS: Mr. Seth Hui is a 49 y.o. male with chronic mesenteric ischemia s/p stenting c/b thrombosis now s/p aorto-SMA bypass with Dr. Abdul Apr 2024. He was last seen in August at which time he did have some episodes of vomiting. His weight had stabilized but he was still only taking very smallmeals and having early satiety with some continued substernal burning and tightness without GI bleeding. Duplex, demonstrated widely patent aorto SMA bypass INTERVAL HISTORY: Patient continues to struggle with significant nausea, vomiting, chest pain. He reports that a few times a week, in the morning he will wake up with significant substernal burning and have significant nausea with vomiting. He is having an episode today. EKG demonstrates normal sinus rhythm. He takes 20 of omeprazole daily. On good days, he is able to eat full large size meals for what ever he likes. He has no postprandial pain, food fear usually. He does continue to lose weight unfortunately. REVIEW OF SYSTEMS: A 12-system review was performed and was negative except for as stated above. PHYSICAL EXAM: BP (!) 149/87 (BP Location: Left arm, Patient Position: Sitting) Pulse 72 Temp 36.8 ??C (98.2 ??F) (Oral) Resp 16 Ht 1.829 m (6') Wt 68.9 kg (152 lb) SpO2 100% BMI 20.61 kg/m?? GEN: Appears stated age, no acute distress. NEURO: Alert & oriented x3. CN grossly intact, symmetric. Moving all extremities spontaneously. HEENT: Normocephalic, atraumatic, trachea midline. Mucous membranes moist. EOM's intact, no scleralicterus. PULM: Symmetric chest rise, unlabored breathing, no accessory muscle use. No audible wheezes. No cough. CV: Regular rate, regular rhythm. GI: Abdomen nondistended. Quite tender in the epigastrium. Midline incision well-healed, no herniasthrough midline incision palpable SKIN: No erythema, skin breakdown, rashes. MSK: Full ROM in all extremities. No joint swelling. PSYCH: Normal mood, appropriate affect. VASC: Extremities warm, capillary refill <2s. LABORATORY & IMAGING STUDIES: CTA demonstrates widely patent aorto-SMA bypass ? ASSESSMENT & PLAN: Problem List Items Addressed This Visit Circulatory Chronic mesenteric ischemia (HCC) - Primary CTA demonstrates widely patent aorto-SMA bypass today. While patient does have significant chest pain, nausea and vomiting, these are unlikely to be related to mesenteric ischemia as he is able to tolerate very large meals when he is not having abdominal pain. His abdominal pain may be consistent with gastric reflux and GERD. He has not had an endoscopy prior to his bypass. There is no evidence of testing for H. pylori in the chart although he does follow with GI at [place] and records are incomplete in our system. I have ordered an H. pylori stool antigen and instructed him to increase his omeprazole to 40 twice daily. Patient has appointment with GI he reports in 3 days and we recommend further investigation for gastric reflux. Recommend daily aspirin indefinitely. We will see him back in 1 year with a repeat mesenteric duplex for bypass surveillance. Relevant Orders Celiac and/or Mesenteric Arteries Duplex Other Visit Diagnoses Chest pain, unspecified type Relevant Orders ECG 12 lead Helicobacter pylori Antigen, Stool Return in about 1 year (around 11/22/2025). Imelda Srivastava MD Resident Physician [facility] PATIENT: Seth Hui : 1975 CSN: [id number] Cosigned by Dayo Abdul MD at 11/22/2024 2:18 PM EDT Associated attestation - Dayo Abdul MD - 11/22/2024 2:18 PM EDT I saw and evaluated the patient. Case discussed with the resident/fellow and I agree with the findings and plan as documented in the resident's/fellow's note. I have seen and evaluated Seth Hui and will be providing ongoing care and management for these medical conditions: chronic mesenteric ischemia documented in this encounter Miscellaneous Notes * Assessment & Plan Note - Imelda Srivastava MD - 11/22/2024 10:58 AM EDT Associated Problem(s): Chronic mesenteric ischemia (HCC) CTA demonstrates widely patent aorto-SMA bypass today. While patient does have significant chest pain, nausea and vomiting, these are unlikely to be related to mesenteric ischemia as he is able to tolerate very large meals when he is not having abdominal pain. His abdominal pain may be consistent with gastric reflux and GERD. He has not had an endoscopy prior to his bypass. There is no evidence of testing for H. pylori in the chart although he does follow with GI at [place] and records are incomplete in our system. I have ordered an H. pylori stool antigen and instructed him to increase his omeprazole to 40 twice daily. Patient has appointment with GI he reports in 3 days and we recommend further investigation for gastric reflux. Recommend daily aspirin indefinitely. We will see him back in 1 year with a repeat mesenteric duplex for bypass surveillance. documented in this encounter Plan of Treatment Upcoming Encounters Date Type Department Care Team (Late st Contact Info) Description 12/20/2024 10:15 AM EDT Appointment [facility] ACC Vascular Lab [address] [place] [address] Dayo Abdul MD [address] [place] [phone] 12/20/2024 11:00 AM EDT Follow-Up [facility] ACC Building Vascular Surgery [address] [place] [address] Personnel Placement Specialist: Dayo Wynn MD [address] [place] [phone] 11/28/2025 10:15 AM EDT Appointment [facility] ACC Vascular Lab [address] [place] [address] Dayo Abdul MD [address] [place] [address] 11/28/2025 11:20 AM EDT Follow-Up [facility] ACC Building Vascular Surgery [address] [place] [address] Personnel Placement Specialist: Dayo Wynn MD [address] [place] [address] Scheduled Orders Name Type Priority Associated Diagnoses Order Schedule Helicobacter pylori Antigen, Stool Microbiology Routine Chest pain, unspecified type Ordered: 11/22/2024 Celiac and/or Mesenteric Arteries Duplex Vascular Ultrasound Routine Chronic mesenteric ischemia (HCC) Expected: 11/22/2025 (Approximate), Expires: 11/22/2026 documented as of this encounter Procedures * Due to [place] law, this organization might not be sharing negative HIV tests. Procedure Name Priority Date/Time Associated Diagnosis Comments ECG 12-LEAD Routine 11/22/2024 10:27 AM EDT Chest pain, unspecified type documented in this encounter Results * Due to [place] law, this organization might not be sharing negative HIV tests. * ECG 12 lead (11/22/2024 10:27 AM EDT) Ventricular Rate EKG 68 BPM MUSE EKG Atrial Rate 68 BPM MUSE EKG MT Interval 118 ms MUSE EKG QRS Interval 82 ms MUSE EKG QT Interval 366 ms MUSE EKG QTC Interval 389 ms MUSE EKG P [place] 45 degrees MUSE EKG R [place] 21 degrees MUSE EKG T Wave [place] 1 degrees MUSE EKG 11/22/2024 10:2 7 AM EDT 11/22/2024 4:15 PM EDT Impressions MUSE EKG - 11/22/2024 4:15 PM EDT NORMAL SINUS RHYTHM NORMAL ECG WHEN COMPARED WITH ECG OF 14-FEB-2024 05:59, NO SIGNIFICANT CHANGE WAS FOUND Confirmed by Jason Houston ([id number]) on 11/22/2024 4:15:01 PM us Dayo Abdul MD ECG ORDERABLES Final Result MUSE EKG documented in this encounter Visit Diagnoses Diagnosis Chronic mesenteric ischemia (HCC)- Primary Chronic vascular insufficiency of intestine Chest pain, unspecified type documented in this encounter Care Teams Grinder Set Up Operator Relationship Specialty Start Date End Date Ngoc Fung MD [address] [place] [address] PCP - General Internal Medicine 09/19/22 documented as of this encounter
--- OUTSIDE RECORDS SUMMARY | 2024-11-26 10:01 | XMS_ITS | Encounter Summary ---
Author Organization [facility] Address [address] [place] [address] Care Team Providers Care Ship Scraper Name Role Phone Ngoc Fung MD Primary Care Provider Reason for Visit * Reason Comments Med Change Request Encounter Details Date Type Department Care Team (Late st Contact Info) Description 08/12/2023 Refill [facility] [address] [place] [address] Len Davis MD [address] [facility] [place] [address] Social History Tobacco Use Types Packs/Day Years [...] Info) Description 12/20/2024 10:15 AM EDT Appointment [facility] ACC Vascular Lab [address] [place] [address] Dayo Abdul MD [address] [place] [phone] 12/20/2024 11:00 AM EDT Follow-Up [facility] Vascular Surgery [address] [place] [address] Health Promotion Officer: Dayo Wynn MD [address] [place] [phone] 11/28/2025 10:15 AM EDT Appointment [facility] Vascular Lab [address] [place] [address] Dayo Abdul MD [address] [place] [phone] 11/28/2025 11:20 AM EDT Follow-Up [facility] Vascular Surgery [address] [place] [phone] Health Promotion Officer: Dayo Wynn MD [address] [place] [phone] documented as of this encounter Visit Diagnoses Not on filedocumented in this encounter Care Teams Ship Scraper Relationship Specialty Start Date End Date Ngoc Fung MD [address] [facility] [place] [address] PCP - General Internal Medicine 09/19/22 documented as of this encounter
--- OUTSIDE RECORDS SUMMARY | 2024-11-26 10:01 | XMS_ITS | Clinical Summary ---
Author Organization [facility] Address [address] [place] [address] Care Team Providers Care Blood Bank Laboratory Technologist Name Role Phone Ngoc Fung MD Primary Care Provider Allergies No known active allergies Medications pantoprazole DR (PROTONIX) 40 mg tablet Take 1 tablet (40 mg total) by mouth 2 times a day. 180 tablet 3 Active Additional Information Patient taking differently: 20 mgoral 2 times daily, Reported on 11/22/2024 aspirin chewable tablet 81 mg Chew and [...] tablet 05/12/2024 4:20 PM EDT 4 Active Additional Information Patient not taking.Reported on 11/22/2024 docusate sodium (COLACE) 100 mg capsule Take 1 capsule (100 mg total) by mouth once a day for 10 days. 10 capsule 05/12/2024 4:20 PM EDT 4 Active Additional Information Patient not taking.Reported on 11/22/2024 sucralfate (CARAFATE) 1 gram tablet Take 1 g by mouth once a day. Active cholecalciferol (VITAMIN D3) 1,250 mcg (50,000 unit) capsule Take 50,000 Units by mouth once a week. 4 Active ferrous sulfate 324 mg (65 mg iron) EC tablet SMARTSI Tablet(s) By Mouth Daily 4 Active Active Problems Problem Noted Date [...] Garduno. I have send a message to metal washing machine operator to cancer the colonoscopy with Dr. Beck [...] including as outpatient. - [facility], can resume aspirin and AC instead of [...] by anesthesia acute pain service. Add hydromorphone CREDIT AUTHORIZER to current analgesic regimen -Mobilize out of bed to chair. -Incentive spirometry and deep breathing exercises. -May transfer to floor when bed becomes available. Chronic mesenteric ischemia 10/07/2022 Assessment & Plan (11/22/2024 10:58 AM EDT): CTA demonstrates widely patent aorto-SMA bypass today. [...] although he does follow with GI at [place] and records are incomplete in our system. [...] a repeat mesenteric duplex for bypass surveillance. Assessment & Plan (08/23/2024 11:55 AM EST): [...] Encounters Date Type Department Care Team Description 11/22/2024 10:00 AM EDT Follow-Up [facility] Building Vascular Surgery [address] [place] [address] Supervisor Bindery: Dayo Wynn MD Chronic mesenteric ischemia (HCC) (Primary Dx); Chest pain, unspecified type 11/22/2024 9:26 AM EDT - 11/22/2024 11:59 PM EDT Hospital Encounter [facility] CT Scan [address] [place] [address] Dayo Abdul MD Chronic mesenteric ischemia (HCC) Discharge Disposition: Home or Self Care (01) from Last 3 Months Family History Medical [...] drink = 0.6 oz pur e alcohol) [facility] Utilities Answer Date Recorded In the past [...] Mass Index 20.61 11/22/2024 10:17 AM EDT Plan of Treatment Upcoming Encounters Date Type Department Care Team (Late st Contact Info) Description 12/20/2024 10:15 AM EDT Appointment [facility] ACC Vascular Lab [address] [place] [address] Dayo Abdul MD [address] [place] [address] 12/20/2024 11:00 AM EDT Follow-Up [facility] V[facility] Surgery [address] [place] [address] Supervisor Bindery: Dayo Wynn MD [address] [place] [address] 11/28/2025 10:15 AM EDT Appointment [facility] ACC Vascular Lab [address] [place] [address] Dayo Abdul MD [address] [place] [address] 11/28/2025 11:20 AM EDT Follow-Up [facility] Vascular Surgery [address] [place] [address] Supervisor Bindery: Dayo Wynn MD [address] [place] [address] Health Maintenance Due Date Last Done Comments Cologuard 1975 FOBT / Fit Test 1975 HIV Screening 1975 Hepatitis C Screening 1975 Sigmoidoscopy 1975 Hepatitis B Vaccines (1 of 3 - 19+ 3-dose series) 1994 COVID-19 Vaccine (2023- season) 2024 Influenza Vaccine (#1) 2024 Alcohol/Substance Use Screening 09/15/2024 Depression Screening and Follow-Up 09/15/2024 Social Drivers of Health Annual Screening 09/15/2024 DTaP,Tdap,and Td Vaccines (2 - Td or Tdap) 11/30/2031 11/29/2021 Colon Cancer Screening 08/15/2033 Colonoscopy 08/15/2033 08/15/2023, 12/0 09/2022, 08/15/2023 RSV Vaccine (60+ years old and patients) (1 - 1-dose 75+ series) 2050 Abdominal Aortic Aneurysm (AAA) Screening Completed 11/22/2024, 06/14/2024, 03/08/2024, Additional history exists Pneumococcal Vaccine: Pediatric (0-5 Years) and At-Risk Patients (6-50 Years) Aged Out No longer eligible based on patient's age to complete this topic Medical Devices Implanted Type Area Chief Merchandising Officer Device Identifier Shelf Expiration Date Model / Serial / Lot Graft Vascular Hemashield 8mm X 60cm - [id number] - [id number] Implanted:Qty: 1 on 05/07/2024 by Dayo Abdul MD at [facility] Graft N/A: Aorta [employer] [facility] 11/22/2027 [id number] / [id number] / System Closure And Repair Suture-Mediated Perclose Prostyle - [id number] - [id number] Implanted:Qty: 1 on 10/31/2022 by Dayo Abdul MD at [facility] Implant Right: Groin [employer] [id number] 07/15/2024 [id number] / [id number] / [id number] System Closure And Repair Suture-Mediated Perclose Prostyle - [id number] - [id number] Implanted:Qty: 1 on 10/31/2022 by Dayo Abdul MD at [facility] Implant Right: Groin [employer] [id number] 07/15/2024 [id number] / [id number] / [id number] Device Closure Vascular Plug 6fr Angio-Seal Vip - S0 - [id number] Implanted:Qty: 1 on 02/13/2023 by Dayo Abdul MD at [facility] Implant Right: Groin [employer] [id number] 10/15/2023 [id number] / 0 / [id number] System Closure And Repair Suture-Mediated Perclose Prostyle - [id number] Implanted:Qty: 2 on 07/20/2023 by Santos Willis MD at [facility] Implant [employer] 03/14/2025 68672-2 3 / / [id number] System Closure And Repair Suture-Mediated Perclose Prostyle - [id number] Implanted:Qty: 3 on 02/14/2024 by Santos Willis MD at [facility] Implant Right: Groin [employer] 10/15/2025 [id number] / / [id number] System Stent Vascular Self Expanding Over The Wire Sterile Innova [id number] - S0 - [id number] Implanted:Qty: 1 on 10/31/2022 by Dayo Abdul MD at [facility] Stent N/A: Abdomen [employer] [id number] 12/06/2026 [id number] / 0 / [id number] Stent Icast Covered [id number] - [id number] - [id number] Implanted:Qty: 1 on 10/31/2022 by Dayo Abdul MD at [facility] Stent N/A: Abdomen [employer] [id number] 07/18/2025 [id number] / [id number] / Stent Icast Covered 7mm X 22mm X 120cm - [id number] - [id number] Implanted:Qty: 1 on 07/20/2023 by Santos Willis MD at [facility] Stent [employer] [facility] 05/30/2026 [id number] / [id number] / Description:Implanted in SMA Graft Stent Vbx Balloon Expandable Endoprosthesis Reduced Profile [id number] 11mm Max Post-Dilation With Heparin Catheter [id number] [place] [employer] - [id number] - [id number] Implanted:Qty: 1 on 02/14/2024 by Santos Willis MD at [facility] Stent N/A: Arterial W L GORE 08/14/2026 [id number] / [id number] / Description:SMA Procedures * Due to [place] [employer] law, this organization might not be sharing negative HIV tests. Procedure Name Priority Date/Time Associated Diagnosis Comments ECG 12-LEAD Routine 11/22/2024 10:27 AM EDT Chest pain, unspecified type CT ANGIOGRAM ABDOMEN PELVIS W CONTRAST Routine 11/22/2024 10:02 AM EDT Chronic mesenteric ischemia (HCC) COLONOSCOPY 08/15/2023 from Last 3 Months or Most Recently Relevant to Health Maintenance Results * Due to [place] Im[employer] law, this organization might not be sharing negative HIV tests. * ECG 12 lead (11/22/2024 10:27 AM EDT) Ventricular Rate EKG 68 BPM MUSE EKG Atrial Rate 68 BPM MUSE EKG AL Interval 118 ms MUSE EKG QRS Interval 82 ms MUSE EKG QT Interval 366 ms MUSE EKG QTC Interval 389 ms MUSE EKG P [place] 45 degrees MUSE EKG R [place] 21 degrees MUSE EKG T Wave [place] 1 degrees MUSE EKG 11/22/2024 10:2 7 AM EDT 11/22/2024 4:15 PM EDT Impressions MUSE EKG - 11/22/2024 4:15 PM EDT NORMAL SINUS RHYTHM NORMAL ECG WHEN COMPARED WITH ECG OF 14-FEB-2024 05:59, NO SIGNIFICANT CHANGE WAS FOUND Confirmed by Jasno Houston ([id number]) on 11/22/2024 4:15:01 PM us Dayo Abdul MD ECG ORDERABLES Final Result MUSE EKG * CT Angiogram Abdomen Pelvis W Contrast (11/22/2024 10:02 AM EDT) Anatomical Region Laterality Modality Body Computed Tomogra phy 11/22/2024 11:1 0 AM EDT Impressions 11/22/2024 11:21 AM EDT Patent supra-celiac aorto-SMA graft. 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 Retro-perfusion of hepatic, splenic and left gastric through replaced hepatic artery out of the SMA. Patent major veins and IVC. No significant changes compared to 06/14/2024 If this radiology report contains a blank impression section, it is an incomplete radiology report. ??Please contact the interpreting radiologist or applicable radiology division as soon as possible to obtain the completed interpretation. ? Workstation ID: [id number] Up-to-date CT equipment and radiation dose reduction techniques were employed. CTDIvol: 1.2 - 10.4 mGy. DLP: 992 mGy-cm. Narrative 11/22/2024 11:21 AM EDT EXAMINATION: CT ANGIOGRAM ABDOMEN PELVIS W CONTRAST INDICATION: Mesenteric ischemia, chronic K55.1 - I10 - Chronic vascular disorders of intestine TECHNIQUE: Images of the abdomen and pelvis were obtained in the arterial and delayed phases following intravenous contrast administration. Coronal and sagittal reformats were generated. 3D postprocessed reformats were also created. For radiation dose control, at least one of the following techniques was used in this procedure (1) Automated exposure control (2) Adjustment of the mA and/or kV according to patient size (3) Use of iterative reconstruction technique. COMPARISON: 06/14/2024. ?? FINDINGS: LOWER THORAX: The visualized lung bases are clear. VASCULAR: Normal course and caliber of the abdominal aorta. 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 Patent supra-celiac aorto to proximal SMA graft. The hepatic, splenic and left gastric are retro-perfused through the hepatic artery originating from the SMA and GDA. Occluded proximal SMA stent, unchanged. Patent SOLOMON. Normal course and caliber of the ilio-femoral arteries, bilaterally. On the delayed images, the IVC is normal and patent, as well as the renal veins. The left renal vein is a little crushed between the aorta and Occluded SMA stent, nonsignificant. The portal vein is patent, as well as the splenic and SMV. Patent hepatic veins HEPATOBILIARY: No focal hepatic lesions. No biliary ductal dilatation. Normal gallbladder with very small amount of sludge.. SPLEEN: No splenomegaly. PANCREAS: No focal masses or ductal dilatation. ADRENAL GLANDS: No adrenal nodules. KIDNEYS/URETERS: No hydronephrosis, calculi, or solid mass lesions. GI TRACT: No distention or wall thickening. No wall thickening or sign of ischemia PERITONEUM/RETROPERITONEUM: No ascites or free air. LYMPH NODES: No lymphadenopathy. PELVIC ORGANS/BLADDER: Unremarkable. BONES AND SOFT TISSUES: Unremarkable. Resulting Agency Comment [id number] Procedure Note Tam Horne MD - 11/22/2024 EXAMINATION: CT ANGIOGRAM ABDOMEN PELVIS W CONTRAST INDICATION: Mesenteric ischemia, chronic K55.1 - I10 - Chronic vasculardisorders of intestine TECHNIQUE: Images of the abdomen and pelvis were obtained in the arterialand delayed phases following intravenous contrast administration. Coronaland sagittal reformats were generated. 3D postprocessed reformats werealso created. For radiation dose control, at least one of the following techniques wasused in this procedure (1) Automated exposure control (2) Adjustment ofthe mA and/or kV according to patient size (3) Use of iterativereconstruction technique. COMPARISON: 06/14/2024. FINDINGS: LOWER THORAX: The visualized lung bases are clear. VASCULAR: Normal course and caliber of the abdominal aorta. 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 Patent supra-celiac aorto to proximal SMA graft.The hepatic, splenic and left gastric are retro-perfused through thehepatic artery originating from the SMA and GDA. Occluded proximal SMAstent, unchanged. Patent SOLOMON. Normal course and caliber of the ilio-femoral arteries,bilaterally. On the delayed images, the IVC is normal and patent, as well as the renalveins. The left renal vein is a little crushed between the aorta andOccluded SMA stent, nonsignificant. The portal vein is patent, as well as the splenic and SMV. Patent hepaticveins HEPATOBILIARY: No focal hepatic lesions. No biliary ductal dilatation.Normal gallbladder with very small amount of sludge.. SPLEEN: No splenomegaly. PANCREAS: No focal masses or ductal dilatation. ADRENAL GLANDS: No adrenal nodules. KIDNEYS/URETERS: No hydronephrosis, calculi, or solid mass lesions. GI TRACT: No distention or wall thickening. No wall thickening or sign ofischemia PERITONEUM/RETROPERITONEUM: No ascites or free air. LYMPH NODES: No lymphadenopathy. PELVIC ORGANS/BLADDER: Unremarkable. BONES AND SOFT TISSUES: Unremarkable. IMPRESSION: Patent supra-celiac aorto-SMA graft. Occluded celiac artery and SMAproximal stent. Retro-perfusion of hepatic, splenic and left gastricthrough replaced hepatic artery out of the SMA. Patent major veins andIVC. No significant changes compared to 06/14/2024 If this radiology report contains a blank impression section, it is anincomplete radiology report. Please contact the interpreting radiologistor applicable radiology division as soon as possible to obtain thecompleted interpretation. Workstation ID: [id number] Up-to-date CT equipment and radiation dose reduction techniques wereemployed. CTDIvol: 1.2 - 10.4 mGy. DLP: 992 mGy-cm. us Dayo Abdul MD IM CT PROCEDURES Final Resul t * COLONOSCOPY (08/15/2023) Narrative Procedure Note Anthony Thomas MD PhD - 08/15/2023 3:15 PM EST [facility] Gastroenterology Patient Name: Seth Hui Procedure Date: 08/15/2023 3:15 PM Date of : 1975 Admit Type: Inpatient Age: 48 Room: [place] [address] Gender: Male Note Status: Finalized Attending MD: [...] the physician, the nurse, theanesthetist and the exhaust emissions automotive technician in the pre-procedure area in the [...] Most Recently Relevant to Health Maintenance Insurance [facility] MEDICAID Advance Directives Documents on File Type Date Recorded Patient Course Developer Expl anation Health Care Proxy 07/24/2023 2:11 [...] Zeng Spouse Health Care Agent Care Teams Blood Bank Laboratory Technologist Relationship Specialty Start Date End Date Ngoc Fung MD [address] [place] [address] PCP - General Internal Medicine 09/19/22
--- OUTSIDE RECORDS SUMMARY | 2024-11-26 10:01 | XMS_ITS | Referral Summary ---
Author Organization [facility] Address [address] [place] [address] Care Team Providers Care Electronic Integrated Systems Mechanic Name Role Phone Ngoc Fung MD Primary Care Provider Encounters Date Type Department Care Team Description 11/22/2024 10:00 AM EDT Follow-Up [facility] Building Vascular Surgery [address] [place] [address] Calender Roll Press Operator: Dayo Wynn MD Chronic mesenteric ischemia (HCC) (Primary Dx); Chest pain, unspecified type 11/22/2024 9:26 AM EDT - 11/22/2024 11:59 PM EDT Hospital Encounter [facility] CT Scan [address] [place] [address] Dayo Abdul MD Chronic mesenteric ischemia (HCC) Discharge Disposition: Home or Self Care () from Last 3 Months Allergies No known [...] mg total) by mouth every 6 hours. Active atorvastatin (LIPITOR) 40 mg tablet Take 1 tablet (40 mg total) by mouth once a day. 90 tablet 05/12/2024 4:20 PM EDT Active Additional Information Patient not taking.Reported on 11/22/2024 docusate sodium (COLACE) 100 mg capsule Take 1 capsule (100 mg total) by mouth once a day for 10 days. 10 capsule 05/12/2024 4:20 PM EDT Active Additional Information Patient not taking.Reported on 11/22/2024 sucralfate (CARAFATE) 1 gram tablet Take 1 g by mouth once a day. Active cholecalciferol (VITAMIN D3) 1,250 mcg (50,000 unit) capsule Take 50,000 Units by mouth once a week. Active ferrous sulfate 324 mg (65 mg iron) EC tablet SMARTSI Tablet(s) By Mouth Daily Active Active Problems Problem Noted Date Diagnosed [...] Garduno. I have send a message to surgery scheduler to cancer the colonoscopy with Dr. [...] with surgery who rec no [facility] as able No overt [...] by anesthesia acute pain service. Add hydromorphone TRANSITIONS MANAGER RN to current analgesic regimen -Mobilize out of [...] although he does follow with GI at [place] and records are incomplete in our system. [...] drink = 0.6 oz pur e alcohol) [facility] Utilities Answer Date Recorded In the past 12 months has th e [place], gas, oil, or water [email or web address] threatened to shut off services in your [...] Info) Description 12/20/2024 10:15 AM EDT Appointment [facility] ACC Vascular Lab [address] [place] [address] Dayo Abdul MD [address] [place] [address] 12/20/2024 11:00 AM EDT Follow-Up [facility] Vascular Surgery [address] [place] [address] Calender Roll Press Operator: Dayo Wynn MD [address] [place] [address] 11/28/2025 10:15 AM EDT Appointment [facility] ACC Vascular Lab [address] [place] [address] Dayo Abdul MD [address] [place] [address] 11/28/2025 11:20 AM EDT Follow-Up [facility] Vascular Surgery [address] [place] [address] Calender Roll Press Operator: AnaDayo Dimas MD [address] [place] [address] Medical Devices Implanted Type Area Gambling Box Person Device Identifier Shelf Expiration Date Model / Serial / Lot Graft Vascular Hemashield 8mm X 60cm - [id number] - [id number] Implanted:Qty: 1 on 05/07/2024 by Dayo Abdul MD at [facility] Graft N/A: Aorta [employer] 11/22/2027 [id number] / [id number] / System Closure And Repair Suture-Mediated Perclose Prostyle - [id number] - [id number] Implanted:Qty: 1 on 10/31/2022 by Dayo Abdul MD at [facility] Implant Right: Groin [employer] [id number] 07/15/2024 04102-30 / [id number] / [id number] System Closure And Repair Suture-Mediated Perclose Prostyle - [id number] - [id number] Implanted:Qty: 1 on 10/31/2022 by Dayo Abdul MD at [facility] Implant Right: Groin [employer] [id number] 07/15/2024 72882-46 / [id number] / [id number] Device Closure Vascular Plug 6fr Angio-Seal Vip - S0 - [id number] Implanted:Qty: 1 on 02/13/2023 by Dayo Abdul MD at [facility] Implant Right: Groin [employer] [id number] 10/15/2023 [id number] / 0 / [id number] System Closure And Repair Suture-Mediated Perclose Prostyle - [id number] Implanted:Qty: 2 on 07/20/2023 by Santos Willis MD at [facility] Implant [employer] 03/14/2025 41481-4 3 / [id number] System Closure And Repair Suture-Mediated Perclose Prostyle - [id number] Implanted:Qty: 3 on 02/14/2024 by Santos Willis MD at [facility] Implant Right: Groin [employer] 10/15/2025 23889-01 / / [id number] System Stent Vascular Self Expanding Over The Wire Sterile Innova [id number] - S0 - [id number] Implanted:Qty: 1 on 10/31/2022 by Dayo Abdul MD at [facility] Stent N/A: Abdomen [employer] [id number] 12/06/2026 [id number] / 0 / [id number] Stent Icast Covered [id number] - [id number] - [id number] Implanted:Qty: 1 on 10/31/2022 by Dayo Abdul MD at [facility] Stent N/A: Abdomen naaptol [facility] [id number] 07/18/2025 66572 / [id number] / Stent Icast Covered 7mm X 22mm X 120cm - [id number] - [id number] Implanted:Qty: 1 on 07/20/2023 by Santos Willis MD at [facility] Stent naaptol [facility] 05/30/2026 [id number] / [id number] / Description:Implanted in SMA Graft Stent Vbx Balloon Expandable Endoprosthesis Reduced Profile [id number] 11mm Max Post-Dilation With Heparin Catheter 9pox020qh [place] [employer] - [id number] - [id number] Implanted:Qty: 1 on 02/14/2024 by Santos Willis MD at [facility] Stent N/A: Arterial W L GORE 08/14/2026 [id number] / [id number] / Description:SMA Procedures * Due to [place] [employer] law, this organization might not be sharing negative HIV tests. Procedure Name Priority Date/Time Associated Diagnosis Comments ECG 12-LEAD Routine 11/22/2024 10:27 AM EDT Chest pain, unspecified type CT ANGIOGRAM ABDOMEN PELVIS W CONTRAST Routine 11/22/2024 10:02 AM EDT Chronic mesenteric ischemia (HCC) COLONOSCOPY 08/15/2023 from Last 3 Months or Most Recently Relevant to Health Maintenance Results * Due to [place] [employer] law, this organization might not be sharing negative HIV tests. * ECG 12 lead (11/22/2024 10:27 AM EDT) Ventricular Rate EKG 68 BPM MUSE EKG Atrial Rate 68 BPM MUSE EKG TX Interval 118 ms MUSE EKG QRS Interval 82 ms MUSE EKG QT Interval 366 ms MUSE EKG QTC Interval 389 ms MUSE EKG P [place] 45 degrees MUSE EKG R [place] 21 degrees MUSE EKG T Wave [place] 1 degrees MUSE EKG 11/22/2024 10:2 7 AM EDT 11/22/2024 4:15 PM EDT Impressions MUSE EKG - 11/22/2024 4:15 PM EDT NORMAL SINUS RHYTHM NORMAL ECG WHEN COMPARED WITH ECG OF 14-FEB-2024 05:59, NO SIGNIFICANT CHANGE WAS FOUND Confirmed by Jason Houston ([id number]) on 11/22/2024 4:15:01 PM us Dayo Abdul [...] obtain the completed interpretation. ? Workstation ID: [id number] Up-to-date CT equipment and radiation dose reduction [...] AND SOFT TISSUES: Unremarkable. Resulting Agency Comment [id number] Procedure Note Tam Horne MD - 11/22/2024 [...] possible to obtain thecompleted interpretation. Workstation ID: [id number] Up-to-date CT equipment and radiation dose reduction techniques wereemployed. CTDIvol: 1.2 - 10.4 mGy. DLP: 992 mGy-cm. us Dayo Abdul MD IMG CT PROCEDURES Final Resul t * COLONOSCOPY (08/15/2023) Narrative Procedure Note Anthony Thomas MD PhD - 08/15/2023 3:15 PM EST [facility] Gastroenterology Patient Name: Seth Hui Procedure Date: 08/15/2023 3:15 PM Date of : 1975 Admit Type: Inpatient Age: 48 Room: [place] [address] Gender: Male Note Status: Finalized Attending MD: [...] the physician, the nurse, theanesthetist and the building energy retrofit technician in the pre-procedure area in the [...] 0 Note Initiated On: 08/15/2023 3:15 PM us Anthony Thomas MD PhD PROVATION PROCEDURES Final Result from Last 3 Months or Most Recently Relevant to Health Maintenance Insurance [employer] MEDICA[employer] Advance Directives Documents on File Type Date Recorded Patient Interstate Planner Expl anation Health Care Proxy 07/24/2023 2:11 [...] Zeng Spouse Health Care Agent Care Teams Electronic Integrated Systems Mechanic Relationship Specialty Start Date End Date Ngoc Fung MD [address] [place] [address] PCP - General Internal Medicine 09/19/22
--- OUTSIDE RECORDS SUMMARY | 2024-11-26 10:01 | XMS_ITS | Encounter Summary ---
Author Organization [facility] Address [address] [place] [address] Care Team Providers Care Brick Setter Name Role Phone Ngoc Fung MD Primary Care Provider Reason for Visit * MRI/CAT/PET Scan (Routine) - Pending Review Specialty Diagnoses / Procedures Referred By Alex t Referred To Contact Radiology Diagnoses Chronic mesenteric ischemia (HCC) Procedures CT Angiogram Abdomen Pelvis W Contrast CT ANGIOGRAM ABDOMEN PELVIS W WO CONTRAST Dayo Abdul MD [address] [place] [address] Phone: tel: fax: Referral ID Status Reason Start Date Expiration Date V isits Requested Visits Authorized [id number] Pending Review 10/25/2024 12/24/2024 1 1 Encounter Details Date Type Department Care Team (Latest Contact Info) Description 11/22/2024 9:26 AM EDT - 11/22/2024 11:59 PM EDT Hospital Encounter [facility] CT Scan [address] [place] [address] Dayo Abdul MD [address] [place] [phone] Chronic mesenteric ischemia (HCC) Discharge Disposition: Home or Self Care () Social History Tobacco Use Types Packs/Day Years Used Date Smoking Tobacco: Former Cigarettes 0.3 5 0 11/18/2017 - 11/18/2022 Smokeless Tobacco: Never Alcohol Use Standard Drinks/Week Comments Not Currently 0 (1 standard drink = 0.6 oz pur e alcohol) [facility] Utilities Answer Date Recorded In the past 12 months has th e electric, gas, oil, or water company threatened to shut off services in your home? No 05/09/2024 Hunger Vital Sign Answer Date Recorded Within the past 12 months, y ou worried that your food would run out before you got the money to buy more. Never true 05/09/20 Within the past 12 months, t he [...] on file documented as of this encounter Medications at Time of Discharge acetaminophen (TYLENOL) 325 mg tablet Take 3 tablets (975 mg total) by mouth every 6 hours. 05/12/2024 aspirin chewable tablet 81 mg Chew and swallow 1 tablet (81 mg total) by mouth once a day. 03/08/2024 03/08/2025 cholecalciferol (VITAMIN D3) 1,250 mcg (50,000 unit) capsule Take 50,000 Units by mouth once a week. 06/10/2024 ferrous sulfate 324 mg (65 mg iron) EC tablet SMARTSI Tablet(s) By Mouth Daily 03/09/2024 sucralfate (CARAFATE) 1 gram tablet Take 1 g by mouth once a day. documented as of this encounter Plan of Treatment Upcoming Encounters Date Type Department Care Team (Late st Contact Info) Description 12/20/2024 10:15 AM EDT Appointment [facility] [address] [place] [address] [id number] Dayo Abdul MD [address] [place] [address] 12/20/2024 11:00 AM EDT Follow-Up [facility] Vascular Surgery [address] [place] [address] Counterintelligence/Humint Specialist: Dayo Wynn MD [address] [place] [phone] 11/28/2025 10:15 AM EDT Appointment [facility]ascular Lab [address] [place] [address] Dayo Abdul MD [address] [place] [address] 11/28/2025 11:20 AM EDT Follow-Up [facility] Vascular Surgery [address] [place] [phone] Counterintelligence/Humint Specialist: Dayo Wynn MD [address] [place] [phone] documented as of this encounter Procedures * Due to [place] [employer] law, this organization might not be sharing negative HIV tests. Procedure Name Priority Date/Time Associated Diagnosis Comments CT ANGIOGRAM ABDOMEN PELVIS W CONTRAST Routine 11/22/2024 10:02 AM EDT Chronic mesenteric ischemia (HCC) documented in this encounter Results * Due to [place] state law, this organization might not be sharing negative HIV tests. * CT Angiogram Abdomen Pelvis W Contrast [...] obtain the completed interpretation. ? Workstation ID: [id number] Up-to-date CT equipment and radiation dose reduction [...] AND SOFT TISSUES: Unremarkable. Resulting Agency Comment [id number] Procedure Note Tam Horne MD - 11/22/2024 [...] possible to obtain thecompleted interpretation. Workstation ID: [id number] Up-to-date CT equipment and radiation dose reduction techniques wereemployed. CTDIvol: 1.2 - 10.4 mGy. DLP: 992 mGy-cm. us Dayo Abdul MD IMG CT PROCEDURES Final Resul t documented in this encounter Visit Diagnoses Diagnosis Chronic mesenteric ischemia (HCC) Chronic vascular insufficiency of intestine documented in this encounter Administered Medications Inactive Administered Medications - up to 3 most recent administrations Medication Order MAR Action Action Date Dose Rate Site iohexoL (OMNIPAQUE) 350 mg iodine/mL contrast 10-200 mL 10-200 mL, intravenous, Once, On 11/22/24 at 1000, 1 dose, Imaging Protocol Orders Given 11/22/2024 9:56 AM EDT 100 mL documented in this encounter Care Teams Brick Setter Relationship Specialty Start Date End Date Ngoc Fung MD [address] [place] [address] PCP - General Internal Medicine 09/19/22 documented as of this encounter
--- OUTSIDE RECORDS SUMMARY | 2024-11-26 10:01 | XMS_ITS | Encounter Summary ---
Author Organization [facility] Address [address] [place] [address] Care Team Providers Care Signal Operator Linguist Name Role Phone Ngoc Fung MD Primary Care Provider Encounter Details Date Type Department Care Team (Late st Contact Info) Description 11/07/2022 Orders Only [address] [address] Selam Hinojosa, DESIGN ASSISTANT [address] [place] [address] Social History Tobacco Use Types Packs/Day Years [...] Info) Description 12/20/2024 10:15 AM EDT Appointment [facility] Vascular Lab [address] [place] [address] Dayo Abdul MD [address] [place] [phone] 12/20/2024 11:00 AM EDT Follow-Up [facility] Building Vascular Surgery [address] [place] [address] Ocular Care Technologist: Dayo Wynn MD [address] [place] [address] 11/28/2025 10:15 AM EDT Appointment [facility] Vascular Lab [address] [place] [address] Dayo Abdul MD [address] [place] [phone] 11/28/2025 11:20 AM EDT Follow-Up [facility] Building Vascular Surgery [address] [place] [address] Ocular Care Technologist: Dayo Wynn MD [address] [place] [phone] documented as of this encounter Visit Diagnoses Not on filedocumented in this encounter Care Teams Signal Operator Linguist Relationship Specialty Start Date End Date Ngoc Fung MD [address] [place] [address] PCP - General Internal Medicine 09/19/22 documented as of this encounter
--- OUTSIDE RECORDS SUMMARY | 2024-11-26 10:01 | XMS_ITS | Encounter Summary ---
Author Organization [facility] Address [address] [place] [address] Care Team Providers Care Writer Editor Name Role Phone Ngoc Fung MD Primary Care Provider Reason for Visit * Reason Comments Med Change Request Encounter Details Date Type Department Care Team (Late st Contact Info) Description 09/11/2023 Refill [facility] [address] [place] [address] Gina Wyatt, DO [address] [place] [address] Social History Tobacco Use Types Packs/Day Years [...] Info) Description 12/20/2024 10:15 AM EDT Appointment [facility] Vascular Lab [address] [place] [address] Dayo Abdul MD [address] [place] [address] 12/20/2024 11:00 AM EDT Follow-Up [facility] Vascular Surgery [address] [place] [phone] Playground Supervisor: Dayo Wynn MD [address] [place] [address] 11/28/2025 10:15 AM EDT Appointment [facility] Vascular Lab [address] [place] [address] Dayo Abdul MD [address] [place] [phone] 11/28/2025 11:20 AM EDT Follow-Up [facility] Vascular Surgery [address] [place] [phone] Playground Supervisor: Dayo Wynn MD [address] [place] [phone] documented as of this encounter Visit Diagnoses Not on filedocumented in this encounter Care Teams Writer Editor Relationship Specialty Start Date End Date Ngoc Fung MD [address] [place] [address] PCP - General Internal Medicine 09/19/22 documented as of this encounter
== END 2024-11-26 09:15 | disposition home or self-care (01) ==
LOC: HO.XRAY 09:14
PROVIDERS: PCP Internal Medicine; Visit Provider Internal Medicine Gastroenterology
DX: R13.10 Dysphagia, unspecified (principal)
CPT/HCPCS: 74220

== ENCOUNTER → 2024-11-26 09:16 | Outpatient (BNV) | payer OTHER, SELFPAY | PROVIDERS: PCP Internal Medicine; Visit Provider Radiology Diagnostic Radiology | DX: R13.10 Dysphagia, unspecified (principal) | CPT/HCPCS: 74220 ==

== ENCOUNTER 2024-12-31 13:04 | Emergency (ER) | payer OTHER, SELFPAY ==
--- NOTE | ~2024-12-31 | XR_ITS ---
EXAMINATION: XR CHEST 2 VIEWS HISTORY: chest tightness, sob COMPARISON: Comparison is made with the prior examination dated 10/06/2024. FINDINGS: PA and lateral views of the chest are submitted. The lungs are expanded and clear. There is no pleural effusion, pneumothorax, or pulmonary vascular congestion. The heart is normal in size. The bones are intact. Again seen is a metallic fragment in the soft tissues of the back. There is a vascular stent in the upper abdomen. XR/XR chest 2V IMPRESSION: No acute cardiopulmonary abnormality. Electronically signed by: Greg Harrington MD 12/31/2024 01:32 PM EDT
--- NOTE | ~2024-12-31 | CT_ITS ---
CLINICAL HISTORY: upper ABD pain, N V CT abdomen and pelvis with contrast Comparison: CT/LA/SR - CT ABDOMEN PELVIS W IV CON - 10/06/24 13:[address]/REG/SR - CT ABDOMEN PELVIS W IV CON - 10/16/23 11:03 EST Findings: No consolidation at the lung bases. Cholelithiasis. No gallbladder wall thickening or pericholecystic fluid. Underdistended bladder. The solid organs are normal. No bowel wall thickening or dilation. Status post appendectomy. Anastomosis of the distal small bowel/proximal colon. No aneurysm. Mild calcified atherosclerotic disease. There is a stent in the superior mesenteric artery without flow, similar to the prior studies. No lymphadenopathy. No ascites. No acute osseous abnormality. Impression: No acute findings. Occluded SMA stent, chronic. This document has been electronically signed by: Darlin Mlegoza MD on 12/31/2024 18:13:07
[2024-12-31 13:12] VITALS: BP 163/88; PULSE 77; RESP 18; TEMP 36.8; O2SAT 100; BMI 20.3
--- NOTE | 2024-12-31 13:13 | ED_ITS ---
HPI - Chest Pain General Chief Complaint: Chest Pain Stated Complaint: chest pain Time Seen by Provider: 12/31/24 13:51 Source: patient Mode of arrival: ambulatory Limitations: no limitations History of Present Illness ED Provider: Smita Cisneros NP HPI narrative: Patient is a 49-year-old male who presents emergency department for evaluation. He reports over the past 3 days he has been experiencing an intermittent chest pain described as a tightness to the left anterior chest, episodic lasting approximately 1 hour at a time before self-resolving, with the associated shortness of breath and dizziness. He is unable to identify exacerbating or even alleviating factors. He states that his symptoms here worse today which prompted him to seek evaluation. Today he had associated subjective fever, chills, nausea, a couple episodes of nonbloody vomiting. He has diffuse abdominal pain which he states is chronic in nature, was advised by his surgeon that he may continue to have this abdominal pain despite his surgery in April of 2024, states his abdominal pain has not increased or changed from his baseline. He denies diaphoresis, radiation of the pain, diarrhea, constipation, hematochezia, melena. Related Data Home Medications ?Medication ?Instructions ?Recorded ?Confirmed atorvastatin 40 mg tablet 40 mg PO DAILY 05/14/24 06/11/24 sennosides 8.6 mg tablet (senna) 17.2 mg PO BID 05/14/24 06/11/24 Previous Rx's ?Medication ?Instructions ?Recorded ondansetron 4 mg disintegrating 4 mg PO Q8H PRN nausea and 07/29/24 tablet vomiting #20 tabs lansoprazole 30 mg capsule,delayed 30 mg PO DAILY #90 caps 09/07/24 release aspirin 81 mg tablet,delayed 81 mg PO DAILY #90 tabs 09/10/24 release mirtazapine 15 mg tablet 15 mg PO BEDTIME #30 tabs 10/04/24 guaifenesin 200 mg/5 mL oral liquid 200 mg (5 mL) PO Q4H PRN cough 10/06/24 #118 mL oxycodone 5 mg tablet 5 mg PO Q8H PRN pain #5 tabs 10/06/24 ondansetron 4 mg disintegrating 4 mg PO Q8H PRN nausea and 12/31/24 tablet vomiting #7 tabs Allergies Allergy/AdvReac Type Severity Reaction Status Date / Time No Known Allergies Allergy Verified 12/31/24 13:19 Review of Systems 2 Review of Systems: Yes all other systems are reviewed and are negative [facility] Past Medical History Attestation statement: The following information was validated with the patient. Source: old records reviewed Medical History AVM (arteriovenous malformation) of duodenum, acquired with hemorrhage Vitamin D deficiency Mesenteric artery thrombosis CAD (coronary artery disease) Hyperlipidemia 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 Maternal Aunt No problems noted. Social History Social History Household Members: Spouse Housing: Apartment Do you presently have visiting nurse or other home services: No Alcohol intake: former Patient Tobacco Use Status: Former Tobacco user Tobacco use type: Cigar Years Smoked: 3 e-Cigarette/Vaping Use: Never Used Substance Use Type: Marijuana Advance Directives: Yes Advance Directives on File: Yes Advance Directives Date on File: 05/19/24 Do you have a plan to hurt others: No Plan service: No Current occupational status: disabled Current occupational exposures/hazards: No Cognitive needs: No Hearing needs: No Vision needs: No Physical Exam 2 Vital Signs: Vital Signs: Last Vital Signs Temp 98.2 F 12/31/24 13:12 Pulse 66 12/31/24 16:17 Resp 12 12/31/24 16:17 BP 157/69 H 12/31/24 16:17 Pulse Ox 100 12/31/24 16:17 O2 Del Method Room Air 12/31/24 16:17 BMI result Body Mass Index 20.3 Appearance: Alert.?Oriented to person, place and time. No acute distress.?Normal affect. Eyes: Pupils equal, round and reactive to light.? ENT: Pharynx normal.?? Neck: Normal inspection.? Neck supple.??No JVD. CVS: Heart sounds normal. Normal heart rate and rhythm.? Pulses normal.?? Respiratory: No respiratory distress.? Lung sounds clear to auscultation bilaterally?? Abdomen: Soft a with mild diffuse tenderness. No rigidity. No guarding. No rebound tenderness. Normoactive bowel sounds. No pulsatile mass.?? Skin: Skin warm and dry.? Normal skin color.? ?? Extremities: No lower extremity edema.? No calf ttp? Neuro: Moves all extremities spontaneously. Sensation intact bilaterally. CN II- XII intact. No focal neuro deficits. Ambulates with normal steady gait. Course Course Course Narrative: This is a Rapid Medical Examination (RME) performed by Thee Vitale PA-C in triage. Full HPI, ROS, assessment and treatment plan per primary provider in the Main ED. 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 reports recent in family (kirill) 1 wk ago. today was her . taking naproxen w/o improvement. Takes baby aspirin daily. also reports fevers, chills, SOB PE/vitals: uncomfortable appearing Plan: labs, ekg, cxr Reevaluation(s) Reevaluation #1: CT of the abdomen and pelvis without acute pathology, chronically occluded SMA stent is noted. He is tolerating oral intake no vomiting, no worsening of his chronic abdominal pain at this time. Delta troponin is negative. Repeat EKG shows a sinus rhythm with ventricular rate of 63, QTC 464, no ST-elevation, T- wave inversion in lead III as seen on prior in September of 2024, and with resolution of the artifact previously seen in the inferior leads earlier today. Has remained without chest pain or tightness in the emergency department. He has been seen previously as well for similar chest pain though previously thought to be noncardiac in nature. Discussed with patient outpatient follow-up with PCP/ Cardiology for further testing and evaluation. Medications Administered Discontinued Medications Generic Name Dose Route Start Last Admin Trade Name Freq PRN Reason Stop Dose Admin Sodium Chloride 1,000 mls @ 999 mls/hr 12/31/24 14:30 12/31/24 18:28 Ns IV 12/31/24 15:30 Infused .Q1H1M LATOSHA Infusion Sodium Chloride 1,000 mls @ 999 mls/hr 12/31/24 16:30 12/31/24 18:27 Ns IV 12/31/24 17:30 999 mls/hr .Q1H1M LATOSHA Administration Iohexol 100 ml 12/31/24 16:51 12/31/24 16:51 Iohexol 350 Mg/Ml 100 Ml Infus..Btl IV 12/31/24 16:52 85 ml ONCE ONE Administration Morphine Sulfate 4 mg 12/31/24 15:46 12/31/24 16:20 Morphine Sulfate 4 Mg/Ml Cartridge IVPUSH 12/31/24 15:47 4 mg ONCE ONE Administration Protocol Ondansetron HCl 4 mg 12/31/24 14:16 12/31/24 14:21 Ondansetron Hcl 4 Mg/2 Ml Vial IVPUSH 12/31/24 14:17 4 mg ONCE ONE Administration Medical Decision Making Medical Decision Making MDM Narrative: Patient is a 49-year-old male with past medical history of CAD, hyperlipidemia, , impaired fasting glucose, GERD, chronic vascular insufficiency of the intestine, AVM of the duodenum,mesenteric thrombosis with stenting and right hemicolectomy 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 Chest pain has been Intermittent over the past 3 days worse, however felt worse today and today with a associated fevers, chills, nausea and vomiting. He has diffuse tenderness upon palpation of the abdomen, without rigidity or guarding, appears non peritoneal, he is without tachycardia, fever, or hypotension. He does admit that he has been seen in the emergency department twice in the past with similar episodes of chest pain, states he has had negative workup, has not followed up with Cardiology in regards to this. On examination he appears without signs of volume overload or shock. Initial EKG is without acute ischemic findings reveals a sinus rhythm with short WA interval; 106 MS, ventricular rate of 100, QTC 405, no ST-elevation, peaked T- waves in V3- V4, artifact noted in inferior leads, will plan to obtain repeat. Given his past medical history, will obtain D-dimer to exclude pulmonary embolism as etiology for symptoms. He denies any recent trauma or injury, no tracheal deviation, not consistent pneumothorax. Denies URI symptoms. Although he has diffuse tenderness throughout the abdomen, he states it is not acutely changed from his baseline, he did have an episode of vomiting while in the emergency department for which he received Zofran IV, with resolution of his nausea. Given diffuse tenderness, and past medical history will obtain CT of the abdomen and pelvis to exclude acute pathology. Will obtain CBC to evaluate for leukocytosis/ anemia, CMP and lipase to evaluate for abnormal electrolytes /abnormal renal function/ abnormal hepatic/biliary function, EKG and troponin to evaluate for ischemia/ACS. Chest x-ray to evaluate for consolidation/ infiltrate/ mass/ pulmonary congestion, pain control and reassessment Differential Diagnosis Differential Diagnoses: The differential diagnosis associated with the presentation includes (See narrative above) Admission/Observation Consideration of admission/observation: Escalation of care including admission/observation considered (See narrative above and course narrative for further detail) Lab Data MDM Lab Attestation statement: I reviewed the patient's lab results. (See course narrative) 12/31/24 14:10 12/31/24 14:10 Labs: Lab Results 12/31/24 12/31/24 12/31/24 Range/Units 14:10 14:15 16:30 WBC 7.8 (4.8-10.8) X10*3/uL RBC 4.27 L (4.60-5.80) X10*6/uL Hgb 12.0 L (14.0-18.0) g/dl Hct 36.3 L (42.0-52.0) % MCV 85.0 (80.0-98.0) fL MCH 28.1 (27.0-33.0) pg MCHC 33.1 (31.0-36.0) g/dl RDW 15.3 (11.0-16.0) % Plt Count 344 (160-400) X10*3/uL MPV 9.2 L (9.4-12.4) fL Immature Gran % (Auto) 0.3 (0.0-0.4) % Neut % (Auto) 75.1 H (45-73) % Lymph % (Auto) 13.6 L (20-40) % [place] % (Auto) 10.2 (2-11) % Eos % (Auto) 0.3 (0-4) % Baso % (Auto) 0.5 (0-2) % Lymph # (Auto) 1.1 L (1.2-4.9) X10*3/uL [place] # (Auto) 0.8 (0.1-1.2) X10*3/uL Eos # (Auto) 0.0 (0.0-0.4) X10*3/uL Baso # (Auto) 0.0 (0.0-0.2) X10*3/uL Abs Immat Gran (auto) 0.02 (0.00-0.03) X10*3/uL Absolute Neuts (auto) 5.9 (2.0-8.3) x10*3/uL Absolute Nucleated RBC 0.000 (0.0-0.012) X10*3/uL Nucleated RBC % (auto) 0.0 (0.0-0.2) /100WBC D-Dimer High Sensitivty < 150 NG/ML Hold Blue Top SEE NOTE Sodium 137 (135-145) mmol/L Potassium 3.9 (3.3-5.1) mmol/L Chloride 104 (96-108) mmol/L Carbon Dioxide 23 (22-29) mmol/L Anion Gap 14 (12-20) BUN 11 (9-16) mg/dL Creatinine 0.83 (0.5-1.4) mg/dL Estim Creat Clear Calc 103.5 Estimated GFR > 60 Random Glucose 139 H (60-115) mg/dL Calcium 10.0 (8.4-10.2) mg/dL Magnesium 1.9 (1.6-2.6) mg/dL Total Bilirubin 0.7 (0.0-1.0) mg/dL AST 16 (5-37) U/L ALT 8 (0-40) U/L Troponin I High Sens < 2.7 < 2.7 (<3.5-35.0) ng/L B-Natriuretic Peptide < 10 (<100) pg/mL Total Protein 8.4 H (6.5-8.0) g/dL Albumin 4.6 (3.5-5.0) g/dL Lipase 15 (8-78) U/L Influenza Type A (PCR) NEGATIVE (Negative) Influenza Type B (PCR) NEGATIVE (Negative) RSV RNA Qual (PCR) NEGATIVE (Negative) SARS-CoV-2 RNA (RT-PCR) NEGATIVE (Negative) Independent Interpretation I performed an independent interpretation of an: EKG (See narrative above) and Plain X-Ray (No consolidation or infiltrate in the chest) Radiology Impression Discussion of test interpretation with radiology: I have reviewed the radiologist's reading. Radiologist Impression: XR/XR chest 2V IMPRESSION: No acute cardiopulmonary abnormality. CT abdomen and pelvis with contrast Comparison: CT/WA/SR - CT ABDOMEN PELVIS W IV CON - 10/06/24 13:[address]/REG/SR - CT ABDOMEN PELVIS W IV CON - 10/16/23 11:03 EST Findings: No consolidation at the lung bases. Cholelithiasis. No gallbladder wall thickening or pericholecystic fluid. Underdistended bladder. The solid organs are normal. No bowel wall thickening or dilation. Status post appendectomy. Anastomosis of the distal small bowel/proximal colon. No aneurysm. Mild calcified atherosclerotic disease. There is a stent in the superior mesenteric artery without flow, similar to the prior studies. No lymphadenopathy. No ascites. No acute osseous abnormality. Impression: No acute findings. Occluded SMA stent, chronic. Discharge Plan Discharge Clinical Impression: Chest pain Patient Disposition: Home, Self-Care Instructions: Chest Pain (ED) Additional Instructions: Blood work today was very reassuring. Testing for COVID, flu, and RSV were negative. CT of your abdomen did not show any abnormal findings suggest alternative cause for the pain that you have been experiencing. As you mentioned this is chronic/ long-term for you. You are associated nausea, vomiting, chills may be secondary to a viral gastrointestinal infection or potentially food-borne illness. I have sent a prescription for an antinausea medication to your pharmacy. Given you have had reoccurrence of chest pain multiple times, although your workup today in the emergency department did not show any abnormal findings such as a heart attack, blood clot in the lungs, or pneumonia. It would be beneficial for you to follow-up with your primary care doctor and/or Cardiology for further evaluation should you continue to have these episodes. At any time you may return to emergency department any new or worsening symptoms or concerns. Prescriptions: New ondansetron 4 mg tablet,disintegrating 4 mg PO Q8H PRN (Reason: nausea and vomiting) Qty: 7 0RF No Action ondansetron 4 mg tablet,disintegrating 4 mg PO Q8H PRN (Reason: nausea and vomiting) Qty: 20 0RF lansoprazole 30 mg capsule,delayed release(DR/EC) 30 mg PO DAILY Qty: 90 1RF aspirin 81 mg tablet,delayed release (DR/EC) 81 mg PO DAILY Qty: 90 1RF oxycodone 5 mg tablet 5 mg PO Q8H PRN (Reason: pain) Qty: 5 0RF Rx Instructions: Partial Fill upon patient request. guaifenesin 200 mg/5 mL liquid 200 mg PO Q4H PRN (Reason: cough) Qty: 118 0RF mirtazapine 15 mg tablet 15 mg PO BEDTIME Qty: 30 2RF Rx Instructions: take 1/2 tab for 1 week then full dose atorvastatin 40 mg tablet 40 mg PO DAILY sennosides [senna] 8.6 mg tablet 17.2 mg PO BID Referrals: [facility] [Provider Group] Ngoc Fung MD [Primary Care Provider] - Print Language: Albanian
--- OUTSIDE RECORDS SUMMARY | 2024-12-31 14:14 | XMS_ITS | Encounter Summary ---
Author Organization [facility] Address [address] [place] [address] Care Team Providers Care Visual Effects Artist Name Role Phone Ngoc Fung MD Primary Care Provider Encounter Details Date Type Department Care Team (Late st Contact Info) Description 11/07/2022 Orders Only [address] [address] Selam Hinojosa, STORM WINDOW INSTALLER [address] [place] [address] Social History Tobacco Use Types Packs/Day Years [...] Care Team (Late st Contact Info) Description 11/28/2025 10:15 AM EDT Appointment [facility] ACC Vascular Lab [address] [place] [address] Dayo Abdul MD [address] [place] [address] 11/28/2025 11:20 AM EDT Follow-Up [facility] Building Vascular Surgery [address] [place] [address] Environmental Compliance Inspector: Dayo Wynn MD [address] [place] [address] documented as of this encounter Visit Diagnoses Not on filedocumented in this encounter Care Teams Visual Effects Artist Relationship Specialty Start Date End Date Ngoc Fung MD [address] [place] [address] PCP - General Internal Medicine 09/19/22 documented as of this encounter
--- OUTSIDE RECORDS SUMMARY | 2024-12-31 14:14 | XMS_ITS | Encounter Summary ---
Author Organization [facility] Address [address] [place] [address] Care Team Providers Care Ribbon Blockmaker Name Role Phone Ngoc Fung MD Primary Care Provider Reason for Visit * Reason Comments Med Change Request Encounter Details Date Type Department Care Team (Late st Contact Info) Description 08/12/2023 Refill [facility] [address] [place] [address] Len Davis MD 55 [facility] [place] [address] Social History Tobacco Use Types Packs/Day Years [...] Info) Description 11/28/2025 10:15 AM EDT Appointment [facility] ACC Vascular Lab [address] [place] [address] Dayo Abdul MD [address] [place] [address] 11/28/2025 11:20 AM EDT Follow-Up [facility] Vascular Surgery [address] [place] [address] Florist Helper: Dayo Wynn MD [address] [place] [phone] documented as of this encounter Visit Diagnoses Not on filedocumented in this encounter Care Teams Ribbon Blockmaker Relationship Specialty Start Date End Date Ngoc Fung MD [address] [place] [address] PCP - General Internal Medicine 09/19/22 documented as of this encounter
--- OUTSIDE RECORDS SUMMARY | 2024-12-31 14:14 | XMS_ITS | Encounter Summary ---
Author Organization [facility] [place] Address [address] [place] [address] Care Team Providers Care Guidance Secretary Name Role Phone Ngoc Fung MD Primary Care Provider Reason for Visit * Reason Comments Med Change Request Encounter Details Date Type Department Care Team (Late st Contact Info) Description 09/11/2023 Refill [facility] [address] [place] [address] Gina Wyatt, DO [address] [place] [address] Social History Tobacco Use Types Packs/Day Years [...] Info) Description 11/28/2025 10:15 AM EDT Appointment [facility] ACC Vascular Lab [address] [place] [address] Dayo Abdul MD [address] [place] [address] 11/28/2025 11:20 AM EDT Follow-Up [facility] Vascular Surgery [address] [place] [address] Barrel Endshaker Adjuster: Dayo Wynn MD [address] [place] [address] [phone] documented as of this encounter Visit Diagnoses Not on filedocumented in this encounter Care Teams Guidance Secretary Relationship Specialty Start Date End Date Ngoc Fung MD [address] [place] [address] PCP - General Internal Medicine 09/19/22 documented as of this encounter
--- OUTSIDE RECORDS SUMMARY | 2024-12-31 14:14 | XMS_ITS | Clinical Summary ---
Author Organization [facility] Address [address] [place] [address] Care Team Providers Care Staffing Assistant Name Role Phone Ngoc Fung MD Primary [...] Problem Noted Date Diagnosed Date Mesenteric ischemia 02/14/2024 Melena 10/27/2023 Assessment & Plan (10/27/2023 [...] Garduno. I have send a message to dry color mixer to cancer the colonoscopy with Dr. Beck [...] including as outpatient. - per discussion with [facility], can resume aspirin and AC instead [...] by anesthesia acute pain service. Add hydromorphone LEAD NET SOFTWARE DEVELOPER to current analgesic regimen -Mobilize out of [...] although he does follow with GI at [place] and records are incomplete in our system. [...] hyperglycemia 07/20/2023 023 Hypovolemia 07/20/2023 08/05/2023 Coagulopathy 07/20/2023 08/05/2023 Leukocytosis 07/20/2023 02/18/2024 Elevated bilirubin 07/20/2023 3 Encounters Date Type Department Care Team Description 12/09/2024 Telephone [facility] Vascular Surgery [address] [place] [address] Dean Of Women: Dayo Wynn MD 11/22/2024 10:00 AM EDT Follow-Up [facility] Vascular Surgery [address] [place] [address] Dean Of Women: Dayo Wynn MD Chronic mesenteric ischemia (Primary Dx); Chest pain, unspecified type 11/22/2024 9:26 AM EDT - 11/22/2024 11:59 PM EDT Hospital Encounter [facility] CT Scan [address] [place] [address] Dayo Abdul MD Chronic mesenteric ischemia Discharge Disposition: Home or Self Care (01) [...] drink = 0.6 oz pur e alcohol) [facility] Utilities Answer Date Recorded In [...] Info) Description 11/28/2025 10:15 AM EDT Appointment [facility] ACC Vascular Lab [address] [place] [address] Dayo Abdul MD [address] [place] [address] 11/28/2025 11:20 AM EDT Follow-Up [facility] ACC Building Vascular Surgery [address] [place] [address] Dean Of Women: Dayo Wynn MD [address] [place] [address] Health Maintenance Due Date Last Done Comments Cologuard 1975 FOBT / Fit Test 1975 HIV Screening 1975 Hepatitis C Screening 1975 Sigmoidoscopy 1975 Hepatitis B Vaccines (1 of 3 - 19+ 3-dose series) 1994 COVID-19 Vaccine ( season) 2024 Alcohol/Substance Use Screening 09/15/2024 Depression Screening and Follow-Up 09/15/2024 Social Drivers of Health Annual Screening 09/15/2024 Influenza Vaccine (Season Ended) 2025 DTaP,Tdap,and Td Vaccines (2 - Td or Tdap) 11/30/2031 11/29/2021 Colon Cancer Screening 08/15/2033 Colonoscopy 08/15/2033 08/15/2023, 12/09/2022, 08/15/2023 RSV Vaccine (60+ years old and patients) (1 - 1-dose 75+ series) 2050 Abdominal Aortic Aneurysm (AAA) Screening Completed 11/22/2024, 06/14/2024, 03/08/2024, Additional history exists Pneumococcal Vaccine: Pediatric (0-5 Years) and At-Risk Patients (6-50 Years) Aged Out No longer eligible based on patient's age to complete this topic Medical Devices Implanted Type Area Radiophone Operator Device Identifier Shelf Expiration Date Model / Serial / Lot Graft Vascular Hemashield 8mm X 60cm - [id number] - [id number] Implanted:Qty: 1 on 05/07/2024 by Dayo Abdul MD at [facility] Graft N/A: Aorta [place] [employer] [place] [employer]S [facility] 11/22/2027 [id number] / [id number] / System Closure And Repair Suture-Mediated Perclose Prostyle - [id number] - [id number] Implanted:Qty: 1 on 10/31/2022 by Dayo Abdul MD at [facility] Implant Right: Groin [employer] [id number] 07/15/2024 [id number] / [id number] / [id number] System Closure And Repair Suture-Mediated Perclose Prostyle - [id number] - [id number] Implanted:Qty: 1 on 10/31/2022 by Dayo Abdul MD at [facility] Implant Right: Groin [employer] [id number] 07/15/2024 62031-29 / [id number] / [id number] Device Closure Vascular Plug 6fr Angio-Seal Vip - S0 - [id number] Implanted:Qty: 1 on 02/13/2023 by Dayo Abdul MD at [facility] Implant Right: Groin [employer] [id number] 10/15/2023 [id number] / 0 / [id number] System Closure And Repair Suture-Mediated Perclose Prostyle - [id number] Implanted:Qty: 2 on 07/20/2023 by Santos Willis MD at [facility] Implant [employer] 03/14/2025 53052-1 3 / / [id number] System Closure And Repair Suture-Mediated Perclose Prostyle - [id number] Implanted:Qty: 3 on 02/14/2024 by Santos Willis MD at [facility] Implant Right: Groin [employer] 10/15/2025 [id number] / / [id number] System Stent Vascular Self Expanding Over The Wire Sterile Innova [id number] - S0 - [id number] Implanted:Qty: 1 on 10/31/2022 by Dayo Abdul MD at [facility] Stent N/A: Abdomen [employer] [id number] 12/06/2026 [id number] / 0 / [id number] Stent Icast Covered [id number] - [id number] - [id number] Implanted:Qty: 1 on 10/31/2022 by Dayo Abdul MD at [facility] Stent N/A: Abdomen [employer] SYSTEMS [facility] [id number] 07/18/2025 [id number] / [id number] / Stent Icast Covered 7mm X 22mm X 120cm - [id number] - [id number] Implanted:Qty: 1 on 07/20/2023 by Santos Willis MD at [facility] Stent [employer] SYSTEMS [facility] 05/30/2026 [id number] / [id number] / Description:Implanted in SMA Graft Stent Vbx Balloon Expandable Endoprosthesis Reduced Profile [id number] 11mm Max Post-Dilation With Heparin Catheter [id number] Florence Viabahn - [id number] - [id number] Implanted:Qty: 1 on 02/14/2024 by Santos Willis MD at [facility] Stent N/A: Arterial W L GORE 08/14/2026 [id number] 2A / [id number] / Description:SMA Procedures * Due to [place] state law, this organization might not be sharing negative HIV tests. Procedure Name Priority Date/Time Associated Diagnosis Comments ECG 12-LEAD Routine 11/22/2024 10:27 AM EDT Chest pain, unspecified type CT ANGIOGRAM ABDOMEN PELVIS W CONTRAST Routine 11/22/2024 10:02 AM EDT Chronic mesenteric ischemia COLONOSCOPY 08/15/2023 from Last 3 Months or Most Recently Relevant to Health Maintenance Results * Due to [place] state law, this organization might not be sharing negative HIV tests. * ECG 12 lead (11/22/2024 10:27 AM EDT) Ventricular Rate EKG 68 BPM MUSE EKG Atrial Rate 68 BPM MUSE EKG [place] Interval 118 ms MUSE EKG QRS Interval 82 ms MUSE EKG QT Interval 366 ms MUSE EKG QTC Interval 389 ms MUSE EKG P [place] 45 degrees MUSE EKG R [place] 21 degrees MUSE EKG T Wave [place] 1 degrees MUSE EKG 11/22/2024 10:2 7 AM EDT 11/22/2024 4:15 PM EDT Impressions MUSE EKG - 11/22/2024 4:15 PM EDT NORMAL SINUS RHYTHM NORMAL ECG WHEN COMPARED WITH ECG OF 14-FEB-2024 05:59, NO SIGNIFICANT CHANGE WAS FOUND Confirmed by Jason Houston ([id number]) on 11/22/2024 4:15:01 PM us Dayo Abdul [...] obtain the completed interpretation. ? Workstation ID: [id number] Up-to-date CT equipment and radiation dose reduction [...] AND SOFT TISSUES: Unremarkable. Resulting Agency Comment [id number] Procedure Note Tam Horne MD - 11/22/2024 [...] possible to obtain thecompleted interpretation. Workstation ID: [id number] Up-to-date CT equipment and radiation dose reduction techniques wereemployed. CTDIvol: 1.2 - 10.4 mGy. DLP: 992 mGy-cm. us Dayo Abdul MD IMG CT PROCEDURES Final Resul t * COLONOSCOPY (08/15/2023) Narrative Procedure Note Anthony Thomas MD PhD - 08/15/2023 3:15 PM EST [facility] Gastroenterology Patient Name: Seth Hui Procedure Date: 08/15/2023 3:15 PM Date of : 1975 Admit Type: Inpatient Age: 48 Room: [place] [address] Gender: Male Note Status: Finalized Attending MD: Anthony Thoams , Procedure: Colonoscopy Indications: Acute post hemorrhagic [...] the physician, the nurse, theanesthetist and the control systems technician in the pre-procedure area in the [...] Most Recently Relevant to Health Maintenance Insurance [facility] [place] [address] Advance Directives Documents on File Type Date Recorded Patient Glass Frame Fitter Expl miko Health Care Proxy 07/24/2023 2:11 PM Vince [...] Zeng Spouse Health Care Agent Care Teams Staffing Assistant Relationship Specialty Start Date End Date Ngoc Fung MD [address] [place] [address] PCP - General Internal Medicine 09/19/22
--- OUTSIDE RECORDS SUMMARY | 2024-12-31 14:14 | XMS_ITS | Encounter Summary ---
Author Organization [facility] Address [address] [place] [address] Care Team Providers Care Clinical Account Manager Name Role Phone Ngoc Fung MD Primary Care Provider Encounter Details Date Type Department Care Team (Late st Contact Info) Description 10/31/2022 Orders Only [address] [address] Selam Hinojosa, MUMPS DEVELOPER [address] [place] [address] Claudication of left lower extremity (Primary Dx) Social History Tobacco Use Types [...] Info) Description 11/28/2025 10:15 AM EDT Appointment [facility] ACC Vascular Lab [address] [place] [address] Dayo Abdul MD [address] [place] [address] 11/28/2025 11:20 AM EDT Follow-Up [facility] Building Vascular Surgery [address] [place] [address] E Learning Manager: Dayo Wynn MD [address] [place] [address] documented as of this encounter Results * Due to [place] state law, [...] claudication in calves bilaterally us Selam Hinojosa MUMPS DEVELOPER CV VASCULAR PROCEDURES Fin al Result documented in this encounter Visit Diagnoses Diagnosis Claudication of left lower extremity (HCC)- Primary Claudication of left lower extremity (HCC) documented in this encounter Care Teams Clinical Account Manager Relationship Specialty Start Date End Date Ngoc Fung MD [address] [place] [address] PCP - General Internal Medicine 09/19/22 documented as of this encounter
--- OUTSIDE RECORDS SUMMARY | 2024-12-31 14:14 | XMS_ITS | Referral Summary ---
Author Organization [facility] Address [address] [place] [address] Care Team Providers Care Line Builder Name Role Phone Ngoc Fung MD Primary Care Provider Encounters Date Type Department Care Team Description 12/09/2024 Telephone [facility] Vascular Surgery [address] [place] [address] Copyist: Dayo Wynn MD 11/22/2024 10:00 AM EDT Follow-Up [facility] Vascular Surgery [address] [place] [address] Copyist: Dayo Wynn MD Chronic mesenteric ischemia (Primary Dx); Chest pain, unspecified type 11/22/2024 9:26 AM EDT - 11/22/2024 11:59 PM EDT Hospital Encounter [facility] CT Scan [address] [place] [address] Dayo Abdul MD Chronic mesenteric ischemia Discharge Disposition: Home or Self Care () [...] mg total) by mouth once a day. 06/24/03/08/20 Active senna (SENOKOT) 8.6 mg tablet Take 2 tablets (17.2 mg total) by mouth 2 times a day. 120 tablet Active acetaminophen (TYLENOL) 325 mg tablet Take [...] Garduno. I have send a message to medical appointment scheduler to cancer the colonoscopy with Dr. [...] by anesthesia acute pain service. Add hydromorphone SLATE SPLITTER to current analgesic regimen -Mobilize out of [...] although he does follow with GI at [place] and records are incomplete in our system. [...] 08/05/2023 Leukocytosis 07/20/2023 02/18/2024 Elevated bilirubin 07/20/2023 Social History Tobacco Use Types Packs/Day Years Used Date Smoking Tobacco: Former Cigarettes 0.3 5 0 11/18/2017 - 11/18/2022 Smokeless Tobacco: Never Tobacco Cessation:Counseling Given: Not Answered Alcohol Use Standard Drinks/Week Comments Not Currently 0 (1 standard drink = 0.6 oz pur e alcohol) [facility] Utilities Answer Date Recorded In the [...] Info) Description 11/28/2025 10:15 AM EDT Appointment [facility] ACC Vascular Lab [address] [place] [address] Dayo Abdul MD [address] [place] [address] 11/28/2025 11:20 AM EDT Follow-Up [facility] Building Vascular Surgery [address] [place] [address] Copyist: Dayo Wynn MD [address] [place] [address] Medical Devices Implanted Type Area Generator Man Device Identifier Shelf Expiration Date Model / Serial / Lot Graft Vascular Hemashield 8mm X 60cm - [id number] - [id number] Implanted:Qty: 1 on 05/07/2024 by Dayo Abdul MD at [facility] Graft N/A: Aorta BoardBookit [facility] 11/22/2027 [id number] / [id number] / System Closure And Repair Suture-Mediated Perclose Prostyle - [id number] - [id number] Implanted:Qty: 1 on 10/31/2022 by Dayo Abdul MD at [facility] Implant Right: Groin [employer] [id number] 07/15/2024 32985-52 / [id number] / [id number] System Closure And Repair Suture-Mediated Perclose Prostyle - [id number] - [id number] Implanted:Qty: 1 on 10/31/2022 by Dayo Abdul MD at [facility] Implant Right: Groin [employer] [id number] 07/15/2024 77246-09 / [id number] / [id number] Device Closure Vascular Plug 6fr Angio-Seal Vip - S0 - [id number] Implanted:Qty: 1 on 02/13/2023 by Dayo Abdul MD at [facility] Implant Right: Groin [employer] [id number] 10/15/2023 [id number] / 0 / [id number] System Closure And Repair Suture-Mediated Perclose Prostyle - [id number] Implanted:Qty: 2 on 07/20/2023 by Santos Willis MD at [facility] Implant [employer] 03/14/2025 83440-8 3 / / [id number] System Closure And Repair Suture-Mediated Perclose Prostyle - [id number] Implanted:Qty: 3 on 02/14/2024 by Santos Willis MD at [facility] Implant Right: Groin [employer] 10/15/2025 02309-22 / / [id number] System Stent Vascular Self Expanding Over The Wire Sterile Innova [id number] - S0 - [id number] Implanted:Qty: 1 on 10/31/2022 by Dayo Abdul MD at [facility] Stent N/A: Abdomen [employer] [id number] 12/06/2026 [id number] / 0 / [id number] Stent Icast Covered [id number] - [id number] - [id number] Implanted:Qty: 1 on 10/31/2022 by Dayo Abdul MD at [facility] Stent N/A: Abdomen [employer] [id number] 07/18/2025 [id number] / [id number] / Stent Icast Covered 7mm X 22mm X 120cm - [id number] - [id number] Implanted:Qty: 1 on 07/20/2023 by Santos Willis MD at [facility] Stent Padlet SYSTEMS [facility] 05/30/2026 [id number] / [id number] / Description:Implanted in SMA Graft Stent Vbx Balloon Expandable Endoprosthesis Reduced Profile [id number] 11mm Max Post-Dilation With Heparin Catheter 1ath208kt [place] Viabahn - [id number] - [id number] Implanted:Qty: 1 on 02/14/2024 by Santos Willis MD at [facility] Stent N/A: Arterial W L GORE 08/14/2026 [id number] 2A / [id number] / Description:SMA Procedures * Due to [place] Hand[place]oints law, this organization might not be sharing negative HIV tests. Procedure Name Priority Date/Time Associated Diagnosis Comments ECG 12-LEAD Routine 11/22/2024 10:27 AM EDT Chest pain, unspecified type CT ANGIOGRAM ABDOMEN PELVIS W CONTRAST Routine 11/22/2024 10:02 AM EDT Chronic mesenteric ischemia COLONOSCOPY 08/15/2023 from Last 3 Months or Most Recently Relevant to Health Maintenance Results * Due to [place] Handipoints law, this organization might not be sharing negative HIV tests. * ECG 12 lead (11/22/2024 10:27 AM EDT) Ventricular Rate EKG 68 BPM MUSE EKG Atrial Rate 68 BPM MUSE EKG RI Interval 118 ms MUSE EKG QRS Interval 82 ms MUSE EKG QT Interval 366 ms MUSE EKG QTC Interval 389 ms MUSE EKG P [place] 45 degrees MUSE EKG R [place] 21 degrees MUSE EKG T Wave [place] 1 degrees MUSE EKG 11/22/2024 10:2 7 AM EDT 11/22/2024 4:15 PM EDT Impressions MUSE EKG - 11/22/2024 4:15 PM EDT NORMAL SINUS RHYTHM NORMAL ECG WHEN COMPARED WITH ECG OF 14-FEB-2024 05:59, NO SIGNIFICANT CHANGE WAS FOUND Confirmed by Jason Houston ([id number]) on 11/22/2024 4:15:01 PM us Dayo Abdul [...] obtain the completed interpretation. ? Workstation ID: [id number] Up-to-date CT equipment and radiation dose reduction [...] AND SOFT TISSUES: Unremarkable. Resulting Agency Comment [id number] Procedure Note Tam Horne MD - 11/22/2024 [...] possible to obtain thecompleted interpretation. Workstation ID: [id number] Up-to-date CT equipment and radiation dose reduction techniques wereemployed. CTDIvol: 1.2 - 10.4 mGy. DLP: 992 mGy-cm. us Dayo Abdul MD IMG CT PROCEDURES Final Resul t * COLONOSCOPY (08/15/2023) Narrative Procedure Note Anthony Thomas MD PhD - 08/15/2023 3:15 PM EST [facility] Gastroenterology Patient Name: Seth Hui Procedure Date: 08/15/2023 3:15 PM Date of : 1975 Admit Type: Inpatient Age: 48 Room: [place] [address] Gender: Male Note Status: Finalized Attending MD: [...] the physician, the nurse, theanesthetist and the vehicle technician in the pre-procedure area in the [...] Most Recently Relevant to Health Maintenance Insurance [facility] MEDICAID Advance Directives Documents on File Type Date Recorded Patient Guest Service Team Leader Expl anation Health Care Proxy 07/24/2023 2:11 [...] Zeng Spouse Health Care Agent Care Teams Line Builder Relationship Specialty Start Date End Date Ngoc Fung MD [address] [place] [address] PCP - General Internal Medicine 09/19/22
[2024-12-31 14:17] LABS: MANUAL DIFF FLAG NO
[2024-12-31] MEDS: ondansetron HCL 4 MG/2 ML VIAL IVPUSH (14:21)
[2024-12-31] MEDS: 0.9 % Sodium Chloride 1,000 ML 999 ML IV ×2 (14:21→18:27)
[2024-12-31 14:26] LABS: Basophils Percent Auto 0.5 % (0-2); Eosinophils Percent Auto 0.3 % (0-4); Hematocrit 36.3 % (42.0-52.0); Imm Gran Abs Auto 0.02 X10*3/uL (0.00-0.03); Imm Gran Pct Auto 0.3 % (0.0-0.4); Lymphocytes Absolute Auto 1.1 X10*3/uL (1.2-4.9); Lymphocytes Percent Auto 13.6 % (20-40); Mean Corpuscular HGB Conc 33.1 g/dl (31.0-36.0); Mean Corpuscular Hemoglobin 28.1 pg (27.0-33.0); Mean Platelet Volume 9.2 fL (9.4-12.4); Monocytes Absolute Auto 0.8 X10*3/uL (0.1-1.2); Monocytes Percent Auto 10.2 % (2-11); Neutrophils Absolute Auto 5.9 x10*3/uL (2.0-8.3); Neutrophils Percent Auto 75.1 % (45-73); Platelet Count 344 X10*3/uL (160-400); Red Blood Count 4.27 X10*6/uL (4.60-5.80); Red Cell Distribution Width 15.3 % (11.0-16.0); White Blood Count 7.8 X10*3/uL (4.8-10.8)
[2024-12-31 14:46] LABS: B Type Natriuretic Peptide < 10 pg/mL (<100)
--- NOTE | 2024-12-31 14:48 | ECG_ITS ---
Test Reason : CHEST PAIN Blood Pressure : */* mmHG Vent. Rate : 63 BPM Atrial Rate : 63 BPM P-R Int : 124 ms QRS Dur : 84 ms QT Int : 356 ms P-R-T Axes : 47 51 -1 degrees QTcB Int : 364 ms Normal sinus rhythm Normal ECG When compared with ECG of 06-Oct-2024 12:21, No significant change was found Referred By: Smita Cisneros Electronically Signed By: VINAY HER MD
[2024-12-31 14:53] LABS: Alanine Aminotransferase 8 U/L (0-40); Albumin Level 4.6 g/dL (3.5-5.0); Anion Gap 14 (12-20); Aspartate Amino Transferase 16 U/L (5-37); Bilirubin Total 0.7 mg/dL (0.0-1.0); Blood Urea Nitrogen 11 mg/dL (9-16); Carbon Dioxide 23 mmol/L (22-29); Chloride 104 mmol/L (96-108); Creatinine Clr Calc Pharmacy 103.5; Estimated Glomerular Filt Rate > 60; Glucose Random 139 mg/dL (60-115); Lipase 15 U/L (8-78); Magnesium 1.9 mg/dL (1.6-2.6); Potassium 3.9 mmol/L (3.3-5.1); Sodium 137 mmol/L (135-145); Total Protein 8.4 g/dL (6.5-8.0); Troponin-I High Sensitivity < 2.7 ng/L (<3.5-35.0)
[2024-12-31 15:16] LABS: Influenza A PCR NEGATIVE (Negative); Influenza B PCR NEGATIVE (Negative); Resp Syncy Virus RNA Qual PCR NEGATIVE (Negative); SARS COV2 PCR INHOUSE NEGATIVE (Negative)
[2024-12-31 15:54] LABS: D Dimer High Sensitivity < 150 NG/ML
[2024-12-31 16:17] VITALS: BP 157/69; PULSE 66; RESP 12; O2SAT 100
[2024-12-31] MEDS: Morphine Sulfate 4 MG/ML CARTRIDGE IVPUSH (16:20)
[2024-12-31] MEDS: iohexoL 350 MG/ML 100 ML INFUS..BTL IV (16:51)
[2024-12-31 16:57] LABS: Troponin-I High Sensitivity < 2.7 ng/L (<3.5-35.0)
[2024-12-31 19:08] LABS: Alkaline Phosphatase 88 U/L (39-117)
[2024-12-31 19:22] VITALS: BP 108/58; PULSE 67; RESP 16; TEMP 36.6; O2SAT 100
[2024-12-31 20:03] VITALS: PULSE 69
[2024-12-31 20:07] VITALS: BP 152/84; PULSE 68; RESP 16; TEMP 36.9; O2SAT 98
== END 2024-12-31 20:11 | disposition home or self-care (01) ==
PROVIDERS: Nurse Practitioner Family; Physician Assistant Medical; Emergency Provider Emergency Medicine Emergency Medical Services; PCP Internal Medicine
DX: R07.89 Other chest pain (principal); R50.9 Fever, unspecified; R11.2 Nausea with vomiting, unspecified; R10.2 Pelvic and perineal pain; R06.02 Shortness of breath; Z03.818 Encounter for observation for suspected exposure to other biological agents ruled out; Z87.891 Personal history of nicotine dependence; Z79.899 Other long term (current) drug therapy
CPT/HCPCS: 0241U; 36415; 71046; 74177; 80053; 83690; 83735; 83880; 84484; 85025; 85379; 93005; 96361; 96374; 96375; 99285; J2270; J2405; Q9967

== ENCOUNTER → 2024-12-31 13:16 | Outpatient (BNV) | payer OTHER, SELFPAY | PROVIDERS: PCP Internal Medicine; Visit Provider Radiology Diagnostic Radiology | DX: R07.89 Other chest pain (principal); R06.02 Shortness of breath; T82.856A Stenosis of peripheral vascular stent, initial encounter | CPT/HCPCS: 71046; 74177 ==

== ENCOUNTER → 2024-12-31 14:48 | Outpatient (BNV) | payer OTHER, SELFPAY | PROVIDERS: Emergency Provider Emergency Medicine Emergency Medical Services; PCP Internal Medicine; Visit Provider Internal Medicine Cardiovascular Disease | DX: R07.9 Chest pain, unspecified (principal) | CPT/HCPCS: 93010 ==

== ENCOUNTER 2025-01-31 10:44 | Emergency (ER) | payer OTHER, SELFPAY ==
--- NOTE | ~2025-01-31 | US_ITS ---
CLINICAL HISTORY: upper abdominal pain GB only please US abdomen limited. COMPARISON: CT angiogram abdomen and pelvis dated 01/31/25 at 16:40 EDT Technique: Real time sonographic imaging, including color-flow imaging, was performed by the job training specialist. Multiple patient services representative static images were saved for review. FINDINGS: The gallbladder is normal in size. Cholelithiasis layering within the gallbladder. There is a negative sonographic Flores's sign. Gallbladder wall: 2-3 mm, normal. Common bile duct: 4 mm, normal. No free intraperitoneal fluid identified. IMPRESSION: 1. Cholelithiasis. No evidence of cholecystitis. This document has been electronically signed by: Sid Rios MD on 01/31/2025 19:44:19
--- NOTE | ~2025-01-31 | XR_ITS ---
EXAMINATION: XR CHEST 2 VIEWS HISTORY: chest tightness COMPARISON: Comparison is made with the prior examination dated 12/31/2024. FINDINGS: PA and lateral views of the chest are submitted. The lungs are expanded and clear. There is no pleural effusion, pneumothorax, or pulmonary vascular congestion. The heart is normal in size. The bones are intact. Again seen is a metallic fragments in the soft tissues of the right lower back. XR/XR chest 2V IMPRESSION: No acute cardiopulmonary abnormality. Electronically signed by: Greg Harrington MD 01/31/2025 11:38 AM EDT
--- NOTE | ~2025-01-31 | CT_ITS ---
CLINICAL HISTORY: severe epigastric pain hx of stenosis stents bypas CT angiogram of the abdomen and pelvis. 3D/MIP post processing reconstructions were performed. COMPARISON: CT abdomen and pelvis dated 12/31/24 at 16:47 EDT FINDINGS: Nonaneurysmal abdominal aorta is widely patent. Celiac trunk and visualized branches are patent. Chronic occlusion of the superior mesenteric artery stent, unchanged. More distal branches of the superior mesenteric artery are fed through a prominent branch of the celiac artery, unchanged. Renal arteries are patent. Visualized portions of the SOLOMON are patent. Scattered atherosclerotic plaque present along the common and internal iliac arteries bilaterally without significant stenosis. External iliac and common femoral arteries are widely patent bilaterally. Visualized lung bases are clear. No focal hepatic lesion. Small amount of layering sludge and/or small stones within the gallbladder. No pericholecystic inflammatory changes. Normal spleen. Normal pancreas. Normal adrenal glands. Symmetric renal enhancement. No hydronephrosis. Appendix is not seen. Suture material present along the cecum. Mild colonic stool burden. No bowel obstruction. No mesenteric or retroperitoneal lymphadenopathy. Normal appearance of the urinary bladder. Prostate calcifications present. No acute fracture or suspicious bone lesion. IMPRESSION: 1. No cause for patient's symptoms identified. No acute findings. 2. Occluded SMA stent, similar to prior imaging. More distal aspects of the SMA are fed through a prominent branch of the celiac artery. 3. Layering sludge and/or small stones within the gallbladder. No pericholecystic inflammatory changes. This document has been electronically signed by: Sid Rios MD on 01/31/2025 17:31:08
--- NOTE | 2025-01-31 10:45 | ECG_ITS ---
Test Reason : chest pain Blood Pressure : */* mmHG Vent. Rate : 83 BPM Atrial Rate : 83 BPM P-R Int : 116 ms QRS Dur : 82 ms QT Int : 332 ms P-R-T Axes : 65 15 17 degrees QTcB Int : 390 ms Normal sinus rhythm with sinus arrhythmia Possible Left atrial enlargement Borderline ECG When compared with ECG of 31-Dec-2024 18:19, No significant change was found Referred By: Generic ED Physician Electronically Signed By: Jordan Ramírez
[2025-01-31 11:17] VITALS: BP 126/72; PULSE 79; RESP 16; TEMP 36.7; O2SAT 100; BMI 20.1
[2025-01-31 11:49] LABS: MANUAL DIFF FLAG NO
[2025-01-31 11:51] LABS: Basophils Absolute Auto 0.1 X10*3/uL (0.0-0.2); Basophils Percent Auto 0.8 % (0-2); Eosinophils Absolute Auto 0.1 X10*3/uL (0.0-0.4); Hematocrit 36.1 % (42.0-52.0); Hemoglobin 11.5 g/dl (14.0-18.0); Imm Gran Abs Auto 0.02 X10*3/uL (0.00-0.03); Imm Gran Pct Auto 0.3 % (0.0-0.4); Lymphocytes Absolute Auto 1.4 X10*3/uL (1.2-4.9); Lymphocytes Percent Auto 18.1 % (20-40); Mean Corpuscular HGB Conc 31.9 g/dl (31.0-36.0); Mean Corpuscular Volume 81.7 fL (80.0-98.0); Mean Platelet Volume 8.9 fL (9.4-12.4); Monocytes Absolute Auto 0.8 X10*3/uL (0.1-1.2); Monocytes Percent Auto 9.8 % (2-11); Neutrophils Absolute Auto 5.5 x10*3/uL (2.0-8.3); Platelet Count 436 X10*3/uL (160-400); Red Blood Count 4.42 X10*6/uL (4.60-5.80); Red Cell Distribution Width 15.5 % (11.0-16.0); White Blood Count 7.9 X10*3/uL (4.8-10.8)
[2025-01-31 12:08] LABS: Alanine Aminotransferase 10 U/L (0-40); Albumin Level 4.6 g/dL (3.5-5.0); Alkaline Phosphatase 87 U/L (39-117); Anion Gap 11 (12-20); Aspartate Amino Transferase 17 U/L (5-37); Bilirubin Total 1.1 mg/dL (0.0-1.0); Blood Urea Nitrogen 11 mg/dL (9-16); Calcium 9.6 mg/dL (8.4-10.2); Carbon Dioxide 27 mmol/L (22-29); Chloride 104 mmol/L (96-108); Creatinine Clr Calc Pharmacy 110.3; Estimated Glomerular Filt Rate > 60; Glucose Random 112 mg/dL (60-115); Potassium 4.3 mmol/L (3.3-5.1); Sodium 138 mmol/L (135-145); Total Protein 8.1 g/dL (6.5-8.0)
[2025-01-31 12:15] LABS: Troponin-I High Sensitivity < 2.7 ng/L (<3.5-35.0)
--- NOTE | 2025-01-31 12:17 | ED_ITS ---
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 He comes in today with c/o upper epigastric and central chest tightness with chills and nausea this AM. He reports no UGIB or LGIB symptoms. No fevers, he feels no shortness of breath. He states he has had the same symptoms in the past when he has had issues with his stents. He has no cough, sputum, diarrhea. He had BM this AM and passed gas. He denies any recent food triggers. He takes all of his medications. Seen in December for chest wall pain as well. NO recent travel/procedures, no leg pain or swelling. MD complaint: chest pain (epigastric pain) Onset (ago): day(s) (1) Timing of current episode: constant Onset: during rest Pain location: substernal and epigastric Pain radiation: none Severity: moderate Quality: tightness Relieving factors: nothing Exacerbating factors: eating and movement Context: other Associated symptoms: nausea Treatment prior to arrival: none Related Data Home Medications ?Medication ?Instructions ?Recorded ?Confirmed atorvastatin 40 mg tablet 40 mg PO DAILY 05/14/24 06/11/24 sennosides 8.6 mg tablet (senna) 17.2 mg PO BID 05/14/24 06/11/24 Previous Rx's ?Medication ?Instructions ?Recorded ondansetron 4 mg disintegrating 4 mg PO Q8H PRN nausea and 07/29/24 tablet vomiting #20 tabs lansoprazole 30 mg capsule,delayed 30 mg PO DAILY #90 caps 09/07/24 release aspirin 81 mg tablet,delayed 81 mg PO DAILY #90 tabs 09/10/24 release mirtazapine 15 mg tablet 15 mg PO BEDTIME #30 tabs 10/04/24 guaifenesin 200 mg/5 mL oral liquid 200 mg (5 mL) PO Q4H PRN cough 10/06/24 #118 mL oxycodone 5 mg tablet 5 mg PO Q8H PRN pain #5 tabs 10/06/24 ondansetron 4 mg disintegrating 4 mg PO Q8H PRN nausea and 12/31/24 tablet vomiting #7 tabs Allergies Allergy/AdvReac Type Severity Reaction Status Date / Time No Known Allergies Allergy Verified 01/31/25 11:17 Review of Systems 2 Review of Systems: Constitutional : No Weight loss, No Fever, pos Chills ENT/Mouth : No sore throat, No Rhinorrhea Eyes: No Eye Pain, No Swelling Cardiovascular : pos Chest Pain, no SOB, no Dyspnea on Exertion, No Orthopnea, No Edema, No Palpitations Respiratory : No Cough, No Sputum Gastrointestinal : pos Nausea, No Vomiting, No Diarrhea, pos abdominal Pain, No Hematochezia, No Melena Genitourinary : No Dysuria, No Urinary Frequency Musculoskeletal : No joint pain, No Myalgias, No Joint Swelling Skin : No Skin Lesions, No rash Neuro : No Weakness, No Numbness, No Dizziness, No Headache Psych : No Anxiety/Panic, No Depression All other systems reviewed and are negative [facility] Past Medical History Attestation statement: The following information was validated with the patient. Source: old records reviewed Medical History AVM (arteriovenous malformation) of duodenum, acquired with hemorrhage Vitamin D deficiency Mesenteric artery thrombosis CAD (coronary artery disease) Hyperlipidemia 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 Maternal Aunt No problems noted. Social History Social History Household Members: Spouse Housing: Apartment Do you presently have visiting nurse or other home services: No Alcohol intake: former Patient Tobacco Use Status: Former Tobacco user Tobacco use type: Cigar Years Smoked: 3 e-Cigarette/Vaping Use: Never Used Substance Use Type: Marijuana Advance Directives: Yes Advance Directives on File: Yes Advance Directives Date on File: 05/19/24 service: No Current occupational status: disabled Current occupational exposures/hazards: No Cognitive needs: No Hearing needs: No Vision needs: No Physical Exam 2 Vital Signs: Vital Signs: Last Vital Signs Temp 98.2 F 01/31/25 20:11 Pulse 67 01/31/25 20:11 Resp 19 01/31/25 20:11 BP 122/62 01/31/25 20:11 Pulse Ox 100 01/31/25 20:11 O2 Del Method Room Air 01/31/25 20:11 BMI result Body Mass Index 20.1 Appearance: Alert. Oriented X3. No acute distress. Eyes: Pupils equal, round and reactive to light. ENT: Pharynx normal. Neck: Normal inspection. Neck supple. CVS: Normal heart rate and rhythm. Pulses normal. Respiratory: No respiratory distress. Breath sounds normal. Abdomen: Soft with moderate ttp in epigastric area no rebound or guarding Skin: Skin warm and dry. Normal skin color. Normal skin turgor. Extremities: No lower extremity edema. No calf ttp Neuro: Oriented X 3. No motor deficit. No sensory deficit. CN2-12 intact Course Course Course Narrative: RME performed by Sanjuana Fung PA-C. Patient is a 49 year old assigned male at presenting to the emergency department with abdominal pain. Detailed physical exam and review of systems are deferred to the charcoal unloader. Labs ordered. Patient placed back in the waiting room pending room availability and results. Reevaluation(s) Reevaluation #1: pain resolved 601pm no vomitin feels much better, given CTA will obtain US of GB Medications Administered Discontinued Medications Generic Name Dose Route Start Last Admin Trade Name Freq PRN Reason Stop Dose Admin Hydromorphone HCl 1 mg 01/31/25 15:45 01/31/25 16:02 Hydromorphone Hcl 1 Mg/Ml Syringe IVPUSH 01/31/25 15:46 1 mg ONCE ONE Administration Protocol Lactated Ringer's 1,000 mls @ 999 mls/hr 01/31/25 15:45 01/31/25 16:01 Lr IV 01/31/25 16:45 999 mls/hr .Q1H1M ONE Administration Iohexol 85 ml 01/31/25 16:50 01/31/25 16:50 Iohexol 350 Mg/Ml 100 Ml Infus..Btl IV 01/31/25 16:51 85 ml ONCE ONE Administration Ondansetron HCl 4 mg 01/31/25 15:45 01/31/25 16:02 Ondansetron Hcl 4 Mg/2 Ml Vial IVPUSH 01/31/25 15:46 4 mg ONCE ONE Administration Medical Decision Making Medical Decision Making MDM Narrative: 49 yo male with PMH of IBD, UGIB and ABLA, hx of mesenteric stenting and R hemicolectomy, celiac artery stenting at [facility] February 2024, 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 He will need labs, trop x 1 given 6 hour duration, EKG, CXR and obtain CTA of abdomen/pelvis given his extenstive history. He has no fevers or infectious symptoms reported. He has no recent trauma. IV dilaudid for pain ordered. His H/H is stable today and he denies UGIB or LGIB symptoms. Differential Diagnosis Differential Diagnoses: The differential diagnosis associated with the presentation includes gastritis, GERD, pancreatitis, vascular issues or stent thrombosis hx of same in past EKG unchanged trop negative with > 6 hours of symptoms doubt ACS PERC negative doubt VTE Admission/Observation Consideration of admission/observation: Escalation of care including admission/observation considered work up reassuring feels better tolerating PO stable for DC Lab Data [facility] Lab Attestation statement: I reviewed the patient's lab results. 01/31/25 11:40 01/31/25 11:40 Labs: Lab Results 01/31/25 Range/Units 11:40 WBC 7.9 (4.8-10.8) X10*3/uL RBC 4.42 L (4.60-5.80) X10*6/uL Hgb 11.5 L (14.0-18.0) g/dl Hct 36.1 L (42.0-52.0) % MCV 81.7 (80.0-98.0) fL MCH 26.0 L (27.0-33.0) pg MCHC 31.9 (31.0-36.0) g/dl RDW 15.5 (11.0-16.0) % Plt Count 436 H D (160-400) X10*3/uL MPV 8.9 L (9.4-12.4) fL Immature Gran % (Auto) 0.3 (0.0-0.4) % Neut % (Auto) 70.0 (45-73) % Lymph % (Auto) 18.1 L (20-40) % [place] % (Auto) 9.8 (2-11) % Eos % (Auto) 1.0 (0-4) % Baso % (Auto) 0.8 (0-2) % Lymph # (Auto) 1.4 (1.2-4.9) X10*3/uL [place] # (Auto) 0.8 (0.1-1.2) X10*3/uL Eos # (Auto) 0.1 (0.0-0.4) X10*3/uL Baso # (Auto) 0.1 (0.0-0.2) X10*3/uL Abs Immat Gran (auto) 0.02 (0.00-0.03) X10*3/uL Absolute Neuts (auto) 5.5 (2.0-8.3) x10*3/uL Absolute Nucleated RBC 0.000 (0.0-0.012) X10*3/uL Nucleated RBC % (auto) 0.0 (0.0-0.2) /100WBC Sodium 138 (135-145) mmol/L Potassium 4.3 (3.3-5.1) mmol/L Chloride 104 (96-108) mmol/L Carbon Dioxide 27 (22-29) mmol/L Anion Gap 11 L (12-20) BUN 11 (9-16) mg/dL Creatinine 0.77 (0.5-1.4) mg/dL Estim Creat Clear Calc 110.3 Estimated GFR > 60 Random Glucose 112 (60-115) mg/dL Calcium 9.6 (8.4-10.2) mg/dL Total Bilirubin 1.1 H (0.0-1.0) mg/dL AST 17 (5-37) U/L ALT 10 (0-40) U/L Alkaline Phosphatase 87 (39-117) U/L Troponin I High Sens < 2.7 (<3.5-35.0) ng/L Total Protein 8.1 H (6.5-8.0) g/dL Albumin 4.6 (3.5-5.0) g/dL Lipase 18 (8-78) U/L Influenza Type A (PCR) NEGATIVE (Negative) Influenza Type B (PCR) NEGATIVE (Negative) RSV RNA Qual (PCR) NEGATIVE (Negative) SARS-CoV-2 RNA (RT-PCR) NEGATIVE (Negative) Independent Interpretation I performed an independent interpretation of an: EKG, Plain X-Ray (normal ), Ultrasound (stones but no infection) and CT Scan (no acute change) Interpretation: Rate: 83 Rhythm: NSR Strong: normal Normal P waves. Normal ANUSHA. Normal QRS complex. ST T wave : normal no SHERRY qTC: 390 prior studies: no changes from prior The study has been interpreted contemporaneously by me. . Radiology Impression Discussion of test interpretation with radiology: I have reviewed the radiologist's reading. External Record Review External record reviewed: Inpatient record and Outpatient record Critical Care Time Critical Care Time Critical Care Time: Yes Total Critical Care Time: 35 Attestation: IV dilaudid with improvement in pain, review of records I attest to this time spent taking care of the patient Discharge Plan Discharge Clinical Impression: Acute upper abdominal pain, Biliary colic Patient Disposition: Home, Self-Care Instructions: Biliary Colic (ED), Abdominal Pain (ED) Additional Instructions: return for worsening symptoms or concerns eat a low fat diet even good fats return for worsening pain, fever, unable to eat or drink or any other concerns follow up with your surgeon at [facility] in regards to your gallbladder disease or our surgery team Prescriptions: No Action ondansetron 4 mg tablet,disintegrating 4 mg PO Q8H PRN (Reason: nausea and vomiting) Qty: 20 0RF lansoprazole 30 mg capsule,delayed release(DR/EC) 30 mg PO DAILY Qty: 90 1RF aspirin 81 mg tablet,delayed release (DR/EC) 81 mg PO DAILY Qty: 90 1RF oxycodone 5 mg tablet 5 mg PO Q8H PRN (Reason: pain) Qty: 5 0RF Rx Instructions: Partial Fill upon patient request. guaifenesin 200 mg/5 mL liquid 200 mg PO Q4H PRN (Reason: cough) Qty: 118 0RF ondansetron 4 mg tablet,disintegrating 4 mg PO Q8H PRN (Reason: nausea and vomiting) Qty: 7 0RF mirtazapine 15 mg tablet 15 mg PO BEDTIME Qty: 30 2RF Rx Instructions: take 1/2 tab for 1 week then full dose atorvastatin 40 mg tablet 40 mg PO DAILY sennosides [senna] 8.6 mg tablet 17.2 mg PO BID Referrals: [facility] [Provider Group] (call to schedule appointment) Interventions: ED Discharge Assessment Last Done: 01/31/25 20:11 Discharge Date/Time: 01/31/25 20:14 Print Language: Surinamese
[2025-01-31 12:36] LABS: Influenza A PCR NEGATIVE (Negative); Influenza B PCR NEGATIVE (Negative); Resp Syncy Virus RNA Qual PCR NEGATIVE (Negative); SARS COV2 PCR INHOUSE NEGATIVE (Negative)
[2025-01-31 15:25] VITALS: BP 144/57; PULSE 70; RESP 18; TEMP 37.1; O2SAT 100
--- OUTSIDE RECORDS SUMMARY | 2025-01-31 15:42 | XMS_ITS | Referral Summary ---
Author Organization [facility] Address [address] [place] [address] Care Team Providers Care Fish Cutting Machine Operator Name Role Phone Ngoc Fung MD Primary Care Provider Encounters Date Type Department Care Team Description 12/09/2024 Telephone [facility] Vascular Surgery [address] [place] [address] Cardroom Manager: Dayo Wynn MD 11/22/2024 10:00 AM EDT Follow-Up [facility] Vascular Surgery [address] [place] [address] Cardroom Manager: Dayo Wynn MD Chronic mesenteric ischemia (Primary Dx); Chest pain, unspecified type 11/22/2024 9:26 AM EDT - 11/22/2024 11:59 PM EDT Hospital Encounter [facility] CT Scan [address] [place] [address] Dayo Abdul MD Chronic mesenteric ischemia Discharge [...] Garduno. I have send a message to personnel scheduler to cancer the colonoscopy with Dr. [...] by anesthesia acute pain service. Add hydromorphone AUDIO SPECIALIST to current analgesic regimen -Mobilize out of [...] although he does follow with GI at [facility] and records are incomplete in our system. [...] Info) Description 11/28/2025 10:15 AM EDT Appointment [facility] ACC Vascular Lab [address] [place] [address] Dayo Abdul MD [address] [place] [id number] 11/28/2025 11:20 AM EDT Follow-Up [facility] Building Vascular Surgery [address] [place] [address] Cardroom Manager: Dayo Wynn MD [address] [place] [address] Medical Devices Implanted Type Area Dialysis Chief Equipment Technician Device Identifier Shelf Expiration Date Model / Serial / Lot Graft Vascular Hemashield 8mm X 60cm - [id number] - [id number] Implanted:Qty: 1 on 05/07/2024 by Dayo Abdul MD at [facility] Graft N/A: Aorta lucierna [facility] 11/22/2027 [id number] / [id number] / System Closure And Repair Suture-Mediated Perclose Prostyle - [id number] - [id number] Implanted:Qty: 1 on 10/31/2022 by Dayo Abdul MD at [facility] Implant Right: Groin [employer] [id number] 07/15/2024 [id number] / [id number] / [id number] System Closure And Repair Suture-Mediated Perclose Prostyle - [id number] - [id number] Implanted:Qty: 1 on 10/31/2022 by Dayo Abdul MD at [facility] Implant Right: Groin [employer] [id number] 07/15/2024 08549-74 / [id number] / [id number] Device Closure Vascular Plug 6fr Angio-Seal Vip - S0 - [id number] Implanted:Qty: 1 on 02/13/2023 by Dayo Abdul MD at [facility] Implant Right: Groin [employer] [id number] 10/15/2023 [id number] / 0 / [id number] System Closure And Repair Suture-Mediated Perclose Prostyle - [id number] Implanted:Qty: 2 on 07/20/2023 by Santos Willis MD at [facility] Implant [employer] 03/14/2025 93788-3 3 / / [id number] System Closure And Repair Suture-Mediated Perclose Prostyle - [id number] Implanted:Qty: 3 on 02/14/2024 by Santos Willis MD at [facility] Implant Right: Groin [employer] 10/15/2025 [id number] / / [id number] System Stent Vascular Self Expanding Over The Wire Sterile Inn[employer] [id number] - S0 - [id number] Implanted:Qty: 1 on 10/31/2022 by Dayo Abdul MD at [facility] Stent N/A: Abdomen [employer] [id number] 12/06/2026 [id number] / 0 / [id number] Stent Icast Covered [id number] - [id number] - [id number] Implanted:Qty: 1 on 10/31/2022 by Dayo Abdul MD at [facility] Stent N/A: Abdomen [employer] [id number] 07/18/2025 [id number] / [id number] / Stent Icast Covered 7mm X 22mm X 120cm - [id number] - [id number] Implanted:Qty: 1 on 07/20/2023 by Santos Willis MD at [facility] Stent Attero SYSTEMS [facility] 05/30/2026 [id number] / [id number] / Description:Implanted in SMA Graft Stent Vbx Balloon Expandable Endoprosthesis Reduced Profile [id number] 11mm Max Post-Dilation With Heparin Catheter [id number] [place] [employer] - [id number] - [id number] Implanted:Qty: 1 on 02/14/2024 by Santos Willis MD at [facility] Stent N/A: Arterial W L GORE 08/14/2026 [id number] / [id number] / Description:SMA Procedures * Due to [place] [employer] law, this organization might not be sharing negative HIV tests. Procedure Name Priority Date/Time Associated Diagnosis Comments ECG 12-LEAD Routine 11/22/2024 10:27 AM EDT Chest pain, unspecified type CT ANGIOGRAM ABDOMEN PELVIS W CONTRAST Routine 11/22/2024 10:02 AM EDT Chronic mesenteric ischemia COLONOSCOPY 08/15/2023 from Last 3 Months or Most Recently Relevant to Health Maintenance Results * Due to [place] [employer] law, this organization might not be sharing negative HIV tests. * ECG 12 lead (11/22/2024 10:27 AM EDT) Ventricular Rate EKG 68 BPM MUSE EKG Atrial Rate 68 BPM MUSE EKG GA Interval 118 ms MUSE EKG QRS Interval 82 ms MUSE EKG QT Interval 366 ms MUSE EKG QTC Interval 389 ms MUSE EKG P Albright 45 degrees MUSE EKG R [place] 21 degrees MUSE EKG T Wave Albright 1 degrees MUSE EKG 11/22/2024 10:2 7 AM EDT 11/22/2024 4:15 PM EDT Impressions MUSE EKG - 11/22/2024 4:15 PM EDT NORMAL SINUS RHYTHM NORMAL ECG WHEN COMPARED WITH ECG OF 14-FEB-2024 05:59, NO SIGNIFICANT CHANGE WAS FOUND Confirmed by Jason Houston ([id number]) on 11/22/2024 4:15:01 PM us Dayo Abdul [...] obtain the completed interpretation. ? Workstation ID: [id number] Up-to-date CT equipment and radiation dose reduction [...] AND SOFT TISSUES: Unremarkable. Resulting Agency Comment [id number] Procedure Note Tam Horne MD - 11/22/2024 [...] possible to obtain thecompleted interpretation. Workstation ID: [id number] Up-to-date CT equipment and radiation dose reduction techniques wereemployed. CTDIvol: 1.2 - 10.4 mGy. DLP: 992 mGy-cm. us Dayo Abdul MD IMG CT PROCEDURES Final Resul t * COLONOSCOPY (08/15/2023) Narrative Procedure Note Anthony Thomas MD PhD - 08/15/2023 3:15 PM EST [facility] Gastroenterology Patient Name: Seth Hui Procedure Date: 08/15/2023 3:15 PM Date of : 1975 Admit Type: Inpatient Age: 48 Room: [place] [address] Gender: Male Note Status: Finalized Attending MD: [...] the physician, the nurse, theanesthetist and the master certified rv technician in the pre-procedure area in the [...] Most Recently Relevant to Health Maintenance Insurance [facility] MEDICAID Advance Directives Documents on File Type Date Recorded Patient Safety Lamp Keeper Expl anation Health Care Proxy 07/24/2023 2:11 [...] Zeng Spouse Health Care Agent Care Teams Fish Cutting Machine Operator Relationship Specialty Start Date End Date Ngoc Fung MD [address] [place] [address] PCP - General Internal Medicine 09/19/22
--- OUTSIDE RECORDS SUMMARY | 2025-01-31 15:42 | XMS_ITS | Encounter Summary ---
Author Organization [facility] Address [address] [place] [address] Care Team Providers Care Associate Director Of Development Name Role Phone Ngoc Fung MD Primary Care Provider Reason for Visit * Reason Comments Med Change Request Encounter Details Date Type Department Care Team (Late st Contact Info) Description 09/11/2023 Refill [facility] [address] [place] [address] Gina Wyatt, DO [address] [place] [address] Social History Tobacco Use Types Packs/Day Years [...] Info) Description 11/28/2025 10:15 AM EDT Appointment [facility] ACC Vascular Lab [address] [place] [address] Dayo Abdul MD [address] [place] [address] 11/28/2025 11:20 AM EDT Follow-Up [facility] Vascular Surgery [address] [place] [address] Tobacco Flavorer: Dayo Wynn MD [address] [place] [address] [phone] documented as of this encounter Visit Diagnoses Not on filedocumented in this encounter Care Teams Associate Director Of Development Relationship Specialty Start Date End Date Ngoc Fung MD [address] [place] [address] PCP - General Internal Medicine 09/19/22 documented as of this encounter
--- OUTSIDE RECORDS SUMMARY | 2025-01-31 15:42 | XMS_ITS | Encounter Summary ---
Author Organization [facility] Address [address] [place] [address] Care Team Providers Care Promotional Representative Name Role Phone Ngoc Fung MD Primary Care Provider Encounter Details Date Type Department Care Team (Late st Contact Info) Description 11/07/2022 Orders Only [address] [address] Selam Hinojosa, BUS AND RAIL OPERATOR [address] [place] [address] Social History Tobacco Use Types Packs/Day Years [...] Info) Description 11/28/2025 10:15 AM EDT Appointment [facility] ACC Vascular Lab [address] [place] [address] Dayo Abdul MD [address] [place] [address] 11/28/2025 11:20 AM EDT Follow-Up [facility] Building Vascular Surgery [address] [place] [address] Claims Administrator: Dayo Wynn MD [address] [place] [phone] documented as of this encounter Visit Diagnoses Not on filedocumented in this encounter Care Teams Promotional Representative Relationship Specialty Start Date End Date Ngoc Fung MD [address] [place] [address] PCP - General Internal Medicine 09/19/22 documented as of this encounter
--- OUTSIDE RECORDS SUMMARY | 2025-01-31 15:42 | XMS_ITS | Encounter Summary ---
Author Organization [facility] Address [address] [place] [address] Care Team Providers Care Office Machine Technician Name Role Phone Ngoc Fung MD Primary Care Provider Encounter Details Date Type Department Care Team (Late st Contact Info) Description 10/31/2022 Orders Only [facility] [address] [place] [address] Selam Hinojosa, HELMINTHOLOGIST [address] [place] [address] Claudication of left lower extremity (Primary Dx) [...] Info) Description 11/28/2025 10:15 AM EDT Appointment [facility] ACC Vascular Lab [address] [place] [address] Dayo Abdul MD [address] [place] [address] 11/28/2025 11:20 AM EDT Follow-Up [facility] Building Vascular Surgery [address] [place] [address] Interventional Tech: Dayo Wynn MD [address] [place] [address] documented as of this encounter Results * Due to [place] state law, this organization might not be [...] claudication in calves bilaterally us Selam Hinojosa HELMINTHOLOGIST CV VASCULAR PROCEDURES Fin al Result documented in this encounter Visit Diagnoses Diagnosis Claudication of left lower extremity (HCC)- Primary Claudication of left lower extremity (HCC) documented in this encounter Care Teams Office Machine Technician Relationship Specialty Start Date End Date Ngoc Fung MD [address] [place] [address] PCP - General Internal Medicine 09/19/22 documented as of this encounter
--- OUTSIDE RECORDS SUMMARY | 2025-01-31 15:42 | XMS_ITS | Encounter Summary ---
Author Organization [facility] Address [address] [place] [address] Care Team Providers Care Spring Upholsterer Name Role Phone Ngoc Fung MD Primary Care Provider Reason for Visit * Reason Comments Med Change Request Encounter Details Date Type Department Care Team (Late st Contact Info) Description 08/12/2023 Refill [facility] [address] [place] [address] Len Davis MD [address] [facility] [place] [address] Social History Tobacco Use Types Packs/Day Years [...] Info) Description 11/28/2025 10:15 AM EDT Appointment [facility] ACC Vascular Lab [address] [place] [address] Dayo Abdul MD [address] [place] [address] 11/28/2025 11:20 AM EDT Follow-Up [facility] Vascular Surgery [address] [place] [phone] Technical Support Manager: Dayo Wynn MD [address] [place] [phone] documented as of this encounter Visit Diagnoses Not on filedocumented in this encounter Care Teams Spring Upholsterer Relationship Specialty Start Date End Date Ngoc Fung MD [address] [place] [address] PCP - General Internal Medicine 09/19/22 documented as of this encounter
--- OUTSIDE RECORDS SUMMARY | 2025-01-31 15:42 | XMS_ITS | Clinical Summary ---
Author Organization [facility] Address [address] [place] [address] Care Team Providers Care Cover Stripper Name Role Phone Ngoc Fung MD Primary [...] Garduno. I have send a message to political science instructor to cancer the colonoscopy with Dr. Beck [...] outpatient. - per discussion with [facility], can resume aspirin and AC instead of [...] by anesthesia acute pain service. Add hydromorphone LABORATORY TECHNICIAN to current analgesic regimen -Mobilize out of [...] although he does follow with GI at [facility] and records are incomplete in our system. [...] Type Department Care Team Description 12/09/2024 Telephone [facility] Vascular Surgery [address] [place] [address] Physical Director: Dayo Wynn MD 11/22/2024 10:00 AM EDT Follow-Up [facility] Surgery [address] [place] [address] Physical Director: Dayo Wynn MD Chronic mesenteric ischemia (Primary Dx); Chest pain, unspecified type 11/22/2024 9:26 AM EDT - 11/22/2024 11:59 PM EDT Hospital Encounter [facility] CT Scan [address] [place] [address] Dayo Abdul MD Chronic mesenteric ischemia Discharge [...] = 0.6 oz pur e alcohol) [facility] Utilities Answer Date Recorded In [...] Info) Description 11/28/2025 10:15 AM EDT Appointment [facility] Vascular Lab [address] [place] [address] Dayo Abdul MD [address] [place] [address] 11/28/2025 11:20 AM EDT Follow-Up [facility] ACC Building Vascular Surgery [address] [place] [address] Physical Director: Dayo Wynn MD [address] [place] [address] Health Maintenance Due Date Last Done Comments [...] this topic Medical Devices Implanted Type Area Technology Development Intern Device Identifier Shelf Expiration Date Model / Serial / Lot Graft Vascular Hemashield 8mm X 60cm - [id number] - [id number] Implanted:Qty: 1 on 05/07/2024 by Dayo Abdul MD at [facility] Graft N/A: Aorta [email or web address] [facility] 11/22/2027 [id number] / [id number] / System Closure And Repair Suture-Mediated Perclose Prostyle - [id number] - [id number] Implanted:Qty: 1 on 10/31/2022 by Dayo Abdul MD at [facility] Implant Right: Groin [employer] [id number] 07/15/2024 [id number] / [id number] / [id number] System Closure And Repair Suture-Mediated Perclose Prostyle - [id number] - [id number] Implanted:Qty: 1 on 10/31/2022 by Dayo Abdul MD at [facility] Implant Right: Groin [employer] [id number] 07/15/2024 [id number] / [id number] / [id number] Device Closure Vascular Plug 6fr Angio-Seal Vip - S0 - [id number] Implanted:Qty: 1 on 02/13/2023 by Dayo Abdul MD at [facility] Implant Right: Groin [employer] [id number] 10/15/2023 [id number] / 0 / [id number] System Closure And Repair Suture-Mediated Perclose Prostyle - [id number] Implanted:Qty: 2 on 07/20/2023 by Sanots Willis MD at [facility] Implant [employer] 03/14/2025 [id number] / / [id number] System Closure And Repair Suture-Mediated Perclose Prostyle - [id number] Implanted:Qty: 3 on 02/14/2024 by Santos Willis MD at [facility] Implant Right: Groin [employer] 10/15/2025 [id number] / / [id number] System Stent Vascular Self Expanding Over The Wire Sterile Innova [id number] - S0 - [id number] Implanted:Qty: 1 on 10/31/2022 by Dayo Abdul MD at [facility] Stent N/A: Abdomen [employer] [id number] 12/06/2026 [id number] / 0 / [id number] Stent Icast Covered [id number] - [id number] - [id number] Implanted:Qty: 1 on 10/31/2022 by Dayo Abdul MD at [facility] Stent N/A: Abdomen [employer]inch [employer]ET [employer] [facility] [id number] 07/18/2025 [id number] / [id number] / Stent Icast Covered 7mm X 22mm X 120cm - [id number] - [id number] Implanted:Qty: 1 on 07/20/2023 by Santos Willis MD at [facility] Stent [employer] [facility] 05/30/2026 [id number] / [id number] / Description:Implanted in SMA Graft Stent Vbx Balloon Expandable Endoprosthesis Reduced Profile [id number] 11mm Max Post-Dilation With Heparin Catheter [id number] [place] Vi[employer]ahn - [id number] - [id number] Implanted:Qty: 1 on 02/14/2024 by Santos Willis MD at [facility] Stent N/A: Arterial W L GORE 08/14/2026 [id number] / [id number] / Description:SMA Procedures * Due to [place] state law, this organization might not be sharing negative HIV tests. Procedure Name Priority Date/Time Associated Diagnosis Comments ECG 12-LEAD Routine 11/22/2024 10:27 AM EDT Chest pain, unspecified type CT ANGIOGRAM ABDOMEN PELVIS W CONTRAST Routine 11/22/2024 10:02 AM EDT Chronic mesenteric ischemia COLONOSCOPY 08/15/2023 from Last 3 Months or Most Recently Relevant to Health Maintenance Results * Due to [place] state law, this organization might not be sharing negative HIV tests. * ECG 12 lead (11/22/2024 10:27 AM EDT) Ventricular Rate EKG 68 BPM MUSE EKG Atrial Rate 68 BPM MUSE EKG TX Interval 118 ms MUSE EKG QRS Interval 82 ms MUSE EKG QT Interval 366 ms MUSE EKG QTC Interval 389 ms MUSE EKG P Ransom 45 degrees MUSE EKG R Ransom 21 degrees MUSE EKG T Wave Ransom 1 degrees MUSE EKG 11/22/2024 10:2 7 AM EDT 11/22/2024 4:15 PM EDT Impressions MUSE EKG - 11/22/2024 4:15 PM EDT NORMAL SINUS RHYTHM NORMAL ECG WHEN COMPARED WITH ECG OF 14-FEB-2024 05:59, NO SIGNIFICANT CHANGE WAS FOUND Confirmed by Jason Houston ([id number]) on 11/22/2024 4:15:01 PM us Dayo Abdul [...] obtain the completed interpretation. ? Workstation ID: [id number] Up-to-date CT equipment and radiation dose reduction [...] AND SOFT TISSUES: Unremarkable. Resulting Agency Comment [id number] Procedure Note Tam Horne MD - 11/22/2024 [...] possible to obtain thecompleted interpretation. Workstation ID: [id number] Up-to-date CT equipment and radiation dose reduction techniques wereemployed. CTDIvol: 1.2 - 10.4 mGy. DLP: 992 mGy-cm. us Dayo Abdul MD IMG CT PROCEDURES Final Resul t * COLONOSCOPY (08/15/2023) Narrative Procedure Note Anthony Thomas MD PhD - 08/15/2023 3:[address] [facility] Patient Name: Seth Hui Procedure Date: 08/15/2023 3:15 PM Date of : 1975 Admit Type: Inpatient Age: 48 Room: [place] [address] Gender: Male Note Status: Finalized Attending MD: [...] the physician, the nurse, theanesthetist and the orthodontic technician in the pre-procedure area in the [...] Documents on File Type Date Recorded Patient Mechanical Engineering Draftsperson Expl miko Health Care Proxy 07/24/2023 2:11 [...] Zeng Spouse Health Care Agent Care Teams Cover Stripper Relationship Specialty Start Date End Date Ngoc Fung MD [address] [place] [address] PCP - General Internal Medicine 09/19/22
[2025-01-31 15:47] LABS: Lipase 18 U/L (8-78)
[2025-01-31] MEDS: Lactated Ringers 1,000 ML 999 ML IV (16:01)
[2025-01-31] MEDS: ondansetron HCL 4 MG/2 ML VIAL IVPUSH (16:02)
[2025-01-31] MEDS: HYDROmorphone HCl 1 MG/ML SYRINGE IVPUSH (16:02)
[2025-01-31] MEDS: iohexoL 350 MG/ML 100 ML INFUS..BTL 85 ML IV (16:50)
--- NOTE | 2025-01-31 16:57 | PC.NURSE ---
49-year-old male with history of chronic mesenteric ischemia s/p aorta superior mesenteric artery bypass grafting 05/07/2024 at [facility], has dyslipidemia, iron deficiency anemia presents with SSCP since yesterday. Lungs clear bilat. Respirations even and non-labored. Abdomen soft, non-tender with positive bowel sounds. Positive pedal pulses with no edema.
[2025-01-31 19:23] VITALS: BP 122/62; PULSE 67; RESP 19; TEMP 36.8; O2SAT 100
[2025-01-31 20:11] VITALS: BP 122/62; PULSE 67; RESP 19; TEMP 36.8; O2SAT 100
== END 2025-01-31 20:14 | disposition home or self-care (01) ==
PROVIDERS: Emergency Provider Emergency Medicine; PCP Internal Medicine
DX: K80.50 Calculus of bile duct without cholangitis or cholecystitis without obstruction (principal); R10.10 Upper abdominal pain, unspecified; R07.9 Chest pain, unspecified; Z03.818 Encounter for observation for suspected exposure to other biological agents ruled out
CPT/HCPCS: 0241U; 71046; 74174; 76705; 80053; 83690; 84484; 85025; 93005; 96361; 96374; 96375; 99284; J1171; J2405; J7120; Q9967

== ENCOUNTER → 2025-01-31 10:45 | Outpatient (BNV) | payer OTHER, SELFPAY | PROVIDERS: Emergency Provider Emergency Medicine; PCP Internal Medicine; Visit Provider Internal Medicine Cardiovascular Disease | DX: R07.9 Chest pain, unspecified (principal) | CPT/HCPCS: 93010 ==

== ENCOUNTER → 2025-01-31 11:21 | Outpatient (BNV) | payer OTHER, SELFPAY | PROVIDERS: Visit Provider Radiology Diagnostic Radiology | DX: K80.20 Calculus of gallbladder without cholecystitis without obstruction (principal); R10.10 Upper abdominal pain, unspecified; R07.89 Other chest pain | CPT/HCPCS: 71046; 74174; 76705 ==

== ENCOUNTER 2025-02-02 10:10 | Emergency (ER) | payer OTHER, SELFPAY ==
[2025-02-02 10:30] VITALS: BP 123/71; PULSE 97; RESP 18; TEMP 36.6; O2SAT 99; BMI 20.8
[2025-02-02 11:32] LABS: MANUAL DIFF FLAG NO
[2025-02-02 11:36] LABS: Basophils Percent Auto 0.5 % (0-2); Eosinophils Absolute Auto 0.1 X10*3/uL (0.0-0.4); Eosinophils Percent Auto 0.7 % (0-4); Hematocrit 32.7 % (42.0-52.0); Hemoglobin 10.3 g/dl (14.0-18.0); Imm Gran Abs Auto 0.03 X10*3/uL (0.00-0.03); Imm Gran Pct Auto 0.4 % (0.0-0.4); Lymphocytes Absolute Auto 1.6 X10*3/uL (1.2-4.9); Lymphocytes Percent Auto 20.5 % (20-40); Mean Corpuscular HGB Conc 31.5 g/dl (31.0-36.0); Mean Corpuscular Hemoglobin 25.8 pg (27.0-33.0); Mean Corpuscular Volume 81.8 fL (80.0-98.0); Mean Platelet Volume 9.1 fL (9.4-12.4); Monocytes Absolute Auto 0.8 X10*3/uL (0.1-1.2); Monocytes Percent Auto 10.7 % (2-11); Neutrophils Absolute Auto 5.1 x10*3/uL (2.0-8.3); Neutrophils Percent Auto 67.2 % (45-73); Platelet Count 406 X10*3/uL (160-400); Red Cell Distribution Width 16.1 % (11.0-16.0); White Blood Count 7.6 X10*3/uL (4.8-10.8)
[2025-02-02 11:49] LABS: Alanine Aminotransferase 12 U/L (0-40); Albumin Level 4.4 g/dL (3.5-5.0); Alkaline Phosphatase 77 U/L (39-117); Anion Gap 11 (12-20); Aspartate Amino Transferase 17 U/L (5-37); Bilirubin Total 0.6 mg/dL (0.0-1.0); Blood Urea Nitrogen 10 mg/dL (9-16); Calcium 9.3 mg/dL (8.4-10.2); Carbon Dioxide 28 mmol/L (22-29); Chloride 107 mmol/L (96-108); Creatinine Clr Calc Pharmacy 127.3; Estimated Glomerular Filt Rate > 60; Glucose Random 84 mg/dL (60-115); Sodium 142 mmol/L (135-145); Total Protein 7.6 g/dL (6.5-8.0)
--- NOTE | 2025-02-02 12:47 | ED_ITS ---
HPI - General Adult General Chief complaint: Abdominal Pain Stated complaint: Upper Abd Pain Time Seen by Provider: 02/02/25 12:17 Source: patient, RN notes reviewed and old records reviewed Mode of arrival: ambulatory Limitations: no limitations History of Present Illness ED Provider: Desiree MCNEILL narrative: Patient is a 49-year-old male with history of IBD, UGIB and ABLA, hx of mesenteric stenting and R hemicolectomy, celiac artery stenting at [facility] February 2024, 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 Seen here on 01/31 for same complaint, states pain has persisted. States pain is the same, has not worsened. Reports emesis is non- bloody, non-bilious. Denies hematochezia, melena. Decreased PO intake due to pain. Denies fevers. Denies chest pain, palpitations, dyspnea. Called his PCP but does not have appointment until early February. MD complaint: abdominal pain Onset (ago): day(s) Location: abdomen Related Data Home Medications ?Medication ?Instructions ?Recorded ?Confirmed atorvastatin 40 mg tablet 40 mg PO DAILY 05/14/24 06/11/24 sennosides 8.6 mg tablet (senna) 17.2 mg PO BID 05/14/24 06/11/24 Previous Rx's ?Medication ?Instructions ?Recorded ondansetron 4 mg disintegrating 4 mg PO Q8H PRN nausea and 07/29/24 tablet vomiting #20 tabs lansoprazole 30 mg capsule,delayed 30 mg PO DAILY #90 caps 09/07/24 release aspirin 81 mg tablet,delayed 81 mg PO DAILY #90 tabs 09/10/24 release mirtazapine 15 mg tablet 15 mg PO BEDTIME #30 tabs 10/04/24 guaifenesin 200 mg/5 mL oral liquid 200 mg (5 mL) PO Q4H PRN cough 10/06/24 #118 mL oxycodone 5 mg tablet 5 mg PO Q8H PRN pain #5 tabs 10/06/24 ondansetron 4 mg disintegrating 4 mg PO Q8H PRN nausea and 12/31/24 tablet vomiting #7 tabs ondansetron 4 mg disintegrating 4 mg PO Q8H PRN nausea and 02/02/25 tablet vomiting #10 tabs sucralfate 1 gram tablet 1 g PO TID #21 tabs 02/02/25 Allergies Allergy/AdvReac Type Severity Reaction Status Date / Time No Known Allergies Allergy Verified 02/02/25 10:34 Review of Systems 2 Review of Systems: As per HPI Yes all other systems are reviewed and are negative Constitutional: Constitutional: Reports as per HPI [facility] Past Medical History Medical History (Updated 02/03/25 @ 00:02 by Balaji Hua) Cholelithiasis AVM (arteriovenous malformation) of duodenum, acquired with hemorrhage Vitamin D deficiency Mesenteric artery thrombosis CAD (coronary artery disease) Hyperlipidemia 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 Maternal Aunt No problems noted. Social History Social History Household Members: Spouse Housing: Apartment Do you presently have visiting nurse or other home services: No Alcohol intake: former Patient Tobacco Use Status: Former Tobacco user Tobacco use type: Cigar Years Smoked: 3 e-Cigarette/Vaping Use: Never Used Substance Use Type: Marijuana Advance Directives Date on File: 05/19/24 service: No Current occupational status: disabled Current occupational exposures/hazards: No Cognitive needs: No Hearing needs: No Vision needs: No Physical Exam ED Vital Signs: Vital Signs - 24 hr 02/02/25 16:14 02/02/25 17:00 02/02/25 17:06 Temperature 97.5 F Pulse Rate 75 Respiratory Rate 16 16 16 Blood Pressure 120/75 Pulse Oximetry 99 Oxygen Delivery Method Room Air 02/02/25 18:12 Temperature 97.5 F Pulse Rate 75 Respiratory Rate 16 Blood Pressure 120/75 Pulse Oximetry 99 Oxygen Delivery Method Room Air BMI result Body Mass Index 20.8 Vital signs have been reviewed and appear to be correct. Blood pressure normal. Heart rate normal. Respiratory rate normal. Temperature normal. Oxygen saturation normal. Const General: cooperative, healthy appearing and no acute distress Orientation/consciousness: oriented to person, oriented to place, oriented to time and patient oriented x3 Limitations: no limitations [facility] Head: Yes normocephalic and Yes atraumatic Ears: external ears normal General nose exam: Normal external nose present Face and sinus: Yes face symmetric Mouth: oropharynx normal and moist mucous membranes Throat: Yes uvula midline Eyes Pupils: Equal, round and reactive pupils present Neck Neck: Yes normal visual inspection and Yes supple Resp Effort & Inspection: normal respiratory effort and able to speak in complete sentences Auscultation: clear to auscultation bilaterally Cardio Rate: regular rate Rhythm: regular rhythm Heart sounds: S1 normal heart sound present and S2 normal heart sound present GI Inspection: Yes scar (large ventral scar) Palpation (GI): Soft to palpation, Tenderness to palpation present (GI) in the epigastrum, no guarding and No Rebound tenderness present Auscultation: normoactive bowel sounds General: Yes no CVA tenderness Back/Spine/Pelvis Back: no CVA tenderness Skin General skin exam: elasticity normal and turgor normal Neuro General: oriented to person, oriented to place, oriented to time, patient oriented x3, moves all extremities, no focal motor deficits and CN's II-XI intact bilaterally Cranial nerves: Yes Equal, round and reactive pupils present Cognition (Neuro): normal cognition Extrem General: Yes full ROM, Yes no pedal edema and Yes no calf tenderness Psych Mental Status: mental status grossly normal Affect: normal affect Thought process: Normal thought process present Medications Administered Discontinued Medications Generic Name Dose Route Start Last Admin Trade Name Freq PRN Reason Stop Dose Admin Al Hydroxide/Mg Hydroxide 30 ml 02/02/25 13:14 02/02/25 13:23 Magnesium Hydrox/Alum Hydrox 30 Ml Oral.Susp PO 02/02/25 13:15 30 ml ONCE ONE Administration Dicyclomine HCl 10 mg 02/02/25 13:14 02/02/25 13:22 Dicyclomine Hcl 10 Mg Capsule PO 02/02/25 13:15 10 mg ONCE ONE Administration Hydromorphone HCl 1 mg 02/02/25 15:51 02/02/25 16:14 Hydromorphone Hcl 1 Mg/Ml Syringe IM 02/02/25 15:52 1 mg ONCE ONE Administration Protocol Lidocaine HCl 15 ml 02/02/25 13:14 02/02/25 13:23 Lidocaine Hcl Viscous 2 % 15 Ml Solution MUCOUS MEM 02/02/25 13:15 15 ml ONCE ONE Administration Medical Decision Making Medical Decision Making [facility] Narrative: Patient is a 49-year-old male with history of IBD, UGIB and ABLA, hx of mesenteric stenting and R hemicolectomy, celiac artery stenting at [facility] February 2024, 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 On exam patient is awake, A+Ox3, VS WNL, afebrile, normal neurological exam without focal deficits, physical exam findings as above. Given reported symptoms and physical exam findings, initial differential includes but is not limited to gastritis, PUD, GI bleed. Labs notable for 1pt drop in Hgb, otherwise unremarkable. Case discussed with attending MD, Dr. Poon who is in agreement that additional imaging is not indicated at this time as patient had extensive workup on 01/31 visit and denies any new symptoms. Patient reports mild improvement in pain after medications given in the ED. Case discussed with Dr. Garduno who will have scheduling team get patient in for sooner appointment. Discussed with patient that he will need to have his labs redrawn in the next 2-3 days to reassess H&H. If his PCP is unable to schedule this, he can return to the ED. strict return precautions discussed at bedside. Will send prescriptions for Zofran and sucralfate. Patient verbalized understanding of and agreement with plan. Differential Diagnosis Differential Diagnoses: The differential diagnosis associated with the presentation includes As per [facility] Admission/Observation Consideration of admission/observation: Escalation of care including admission/observation considered Patient would have been admitted to the hospital had their work up had any findings where hospital admission was appropriate and their clinical presentation warranted hospital admission. Consult Healthcare Provider Management of the patient was discussed with: Bead Flipper (Dr. Garduno) Lab Data [facility] Lab Attestation statement: I reviewed the patient's lab results. As per [facility] 02/02/25 11:29 02/02/25 11:29 Labs: Lab Results 02/02/25 Range/Units 11:29 WBC 7.6 (4.8-10.8) X10*3/uL RBC 4.00 L (4.60-5.80) X10*6/uL Hgb 10.3 L (14.0-18.0) g/dl Hct 32.7 L (42.0-52.0) % MCV 81.8 (80.0-98.0) fL MCH 25.8 L (27.0-33.0) pg MCHC 31.5 (31.0-36.0) g/dl RDW 16.1 H (11.0-16.0) % Plt Count 406 H (160-400) X10*3/uL MPV 9.1 L (9.4-12.4) fL Immature Gran % (Auto) 0.4 (0.0-0.4) % Neut % (Auto) 67.2 (45-73) % Lymph % (Auto) 20.5 (20-40) % [place] % (Auto) 10.7 (2-11) % Eos % (Auto) 0.7 (0-4) % Baso % (Auto) 0.5 (0-2) % Lymph # (Auto) 1.6 (1.2-4.9) X10*3/uL [place] # (Auto) 0.8 (0.1-1.2) X10*3/uL Eos # (Auto) 0.1 (0.0-0.4) X10*3/uL Baso # (Auto) 0.0 (0.0-0.2) X10*3/uL Abs Immat Gran (auto) 0.03 (0.00-0.03) X10*3/uL Absolute Neuts (auto) 5.1 (2.0-8.3) x10*3/uL Absolute Nucleated RBC 0.000 (0.0-0.012) X10*3/uL Nucleated RBC % (auto) 0.0 (0.0-0.2) /100WBC Sodium 142 (135-145) mmol/L Potassium 4.0 (3.3-5.1) mmol/L Chloride 107 (96-108) mmol/L Carbon Dioxide 28 (22-29) mmol/L Anion Gap 11 L (12-20) BUN 10 (9-16) mg/dL Creatinine 0.69 (0.5-1.4) mg/dL Estim Creat Clear Calc 127.3 Estimated GFR > 60 Random Glucose 84 (60-115) mg/dL Calcium 9.3 (8.4-10.2) mg/dL Total Bilirubin 0.6 (0.0-1.0) mg/dL AST 17 (5-37) U/L ALT 12 (0-40) U/L Alkaline Phosphatase 77 (39-117) U/L Total Protein 7.6 (6.5-8.0) g/dL Albumin 4.4 (3.5-5.0) g/dL External Record Review External record reviewed: Inpatient record, Office record and Outpatient record Prescription Management I considered prescription management with: Other Critical Care Time Critical Care Time Critical Care Time: Yes Total Critical Care Time: 35 Attestation: I have personally provided critical care time exclusive of time spent on separately billable procedures. Time includes review of lab data, radiology results, discussion with consultants, and monitoring for potential decompensation. Intervention performed as documented. Discharge Plan Discharge Clinical Impression: Epigastric pain Patient Disposition: Home, Self-Care Instructions: Anemia (ED), Epigastric Pain (ED) Additional Instructions: You were evaluated in the emergency department today for abdominal pain. You were treated with medications for your pain. Your hemoglobin level was slightly lower today than on your visit on 01/31/25. We recommend that you follow up with your PCP to have this level rechecked in the next 2-3 days. If your PCP is unable to order this blood test, you can return to the emergency department. You are being prescribed ondansetron for nausea. You are also being prescribed sucralfate to take before meals to coat your stomach. Please call Dr. Garduno's office to schedule an appointment, they will try to get you on the schedule sooner. Return to the emergency department if you develop worsening pain, fever, have blood in your vomit or stool, have dizziness/lightheadedness/fainting, or any other new or concerning symptoms. Prescriptions: New ondansetron 4 mg tablet,disintegrating 4 mg PO Q8H PRN (Reason: nausea and vomiting) Qty: 10 0RF sucralfate 1 gram tablet 1 g PO TID Qty: 21 0RF No Action ondansetron 4 mg tablet,disintegrating 4 mg PO Q8H PRN (Reason: nausea and vomiting) Qty: 20 0RF lansoprazole 30 mg capsule,delayed release(DR/EC) 30 mg PO DAILY Qty: 90 1RF aspirin 81 mg tablet,delayed release (DR/EC) 81 mg PO DAILY Qty: 90 1RF oxycodone 5 mg tablet 5 mg PO Q8H PRN (Reason: pain) Qty: 5 0RF Rx Instructions: Partial Fill upon patient request. guaifenesin 200 mg/5 mL liquid 200 mg PO Q4H PRN (Reason: cough) Qty: 118 0RF ondansetron 4 mg tablet,disintegrating 4 mg PO Q8H PRN (Reason: nausea and vomiting) Qty: 7 0RF mirtazapine 15 mg tablet 15 mg PO BEDTIME Qty: 30 2RF Rx Instructions: take 1/2 tab for 1 week then full dose atorvastatin 40 mg tablet 40 mg PO DAILY sennosides [senna] 8.6 mg tablet 17.2 mg PO BID Referrals: Shamar Garduno MD [Physician] - 3 days (epigastric pain, 2 ED visits in 3 days) Interventions: ED Discharge Assessment Last Done: 02/02/25 18:12 Discharge Date/Time: 02/02/25 18:12 Print Language: Korean
--- OUTSIDE RECORDS SUMMARY | 2025-02-02 13:13 | XMS_ITS | Encounter Summary ---
Author Organization [facility] Address [address] [place] [address] Care Team Providers Care Bobbin Painter Name Role Phone Ngoc Fung MD Primary Care Provider Reason for Visit * Reason Comments Med Change Request Encounter Details Date Type Department Care Team (Late st Contact Info) Description 08/12/2023 Refill [facility] [address] [place] [address] Len Davis MD [address] [facility] [place] [address] Social History Tobacco Use Types Packs/Day Years [...] Info) Description 11/28/2025 10:15 AM EDT Appointment [facility] ACC Vascular Lab [address] [place] [address] Dayo Abdul MD [address] [place] [address] 11/28/2025 11:20 AM EDT Follow-Up [facility] Vascular Surgery [address] [place] [address] Meat Butcher: Dayo Wynn MD [address] [place] [address] documented as of this encounter Visit Diagnoses Not on filedocumented in this encounter Care Teams Bobbin Painter Relationship Specialty Start Date End Date Ngoc Fung MD [address] [place] [id number] PCP - General Internal Medicine 09/19/22 documented as of this encounter
--- OUTSIDE RECORDS SUMMARY | 2025-02-02 13:13 | XMS_ITS | Clinical Summary ---
Author Organization [facility] Address [address] [place] [address] Care Team Providers Care Jazz Musician Name Role Phone Ngoc Fung MD Primary [...] Garduno. I have send a message to production control scheduler to cancer the colonoscopy with Dr. [...] including as outpatient. - per discussion with [facility], can resume aspirin and AC instead of [...] by anesthesia acute pain service. Add hydromorphone BROADCASTING EQUIPMENT MECHANIC to current analgesic regimen -Mobilize out of [...] although he does follow with GI at [place] and records are incomplete in our system. [...] Type Department Care Team Description 12/09/2024 Telephone [facility] Vascular Surgery [address] [place] [address] Tape Controlled Machine Stitcher: Dayo Wynn MD 11/22/2024 10:00 AM EDT Follow-Up [facility] Vascular Surgery [address] [place] [address] Tape Controlled Machine Stitcher: Dayo Wynn MD Chronic mesenteric ischemia (Primary Dx); Chest pain, unspecified type 11/22/2024 9:26 AM EDT - 11/22/2024 11:59 PM EDT Hospital Encounter [facility] CT Scan [address] [place] [address] Dayo Abdul MD Chronic mesenteric ischemia Discharge [...] drink = 0.6 oz pur e alcohol) [facility] Utilities Answer Date Recorded In the past [...] Info) Description 11/28/2025 10:15 AM EDT Appointment [facility] ACC Vascular Lab [address] [place] [address] Dayo Abdul MD [address] [place] [address] 11/28/2025 11:20 AM EDT Follow-Up [facility] ACC Building Vascular Surgery [address] [place] [address] Tape Controlled Machine Stitcher: Dayo Wynn MD [address] [place] [address] Health Maintenance Due Date Last Done Comments [...] this topic Medical Devices Implanted Type Area Cloth Bleaching Supervisor Device Identifier Shelf Expiration Date Model / Serial / Lot Graft Vascular Hemashield 8mm X 60cm - [id number] - [id number] Implanted:Qty: 1 on 05/07/2024 by Dayo Abdul MD at [facility] Graft N/A: Aorta [employer] [facility] 11/22/2027 [id number] / [id number] / System Closure And Repair Suture-Mediated Perclose Prostyle - [id number] - [id number] Implanted:Qty: 1 on 10/31/2022 by Dayo Abdul MD at [facility] Implant Right: Groin [employer] [id number] 07/15/2024 57921-74 / [id number] / [id number] System Closure And Repair Suture-Mediated Perclose Prostyle - [id number] - [id number] Implanted:Qty: 1 on 10/31/2022 by Dayo Abdul MD at [facility] Implant Right: Groin [employer] [id number] 07/15/2024 96042-35 / [id number] / [id number] Device Closure Vascular Plug 6fr Angio-Seal Vip - S0 - [id number] Implanted:Qty: 1 on 02/13/2023 by Dayo Abdul MD at [facility] Implant Right: Groin [employer] [id number] 10/15/2023 [id number] / [id number] / [id number] System Closure And Repair Suture-Mediated Perclose Prostyle - [id number] Implanted:Qty: 2 on 07/20/2023 by Santos Willis MD at [facility] Implant [employer] 03/14/2025 04316-3 3 / / [id number] System Closure And Repair Suture-Mediated Perclose Prostyle - [id number] Implanted:Qty: 3 on 02/14/2024 by Santos Willis MD at [facility] Implant Right: Groin [employer] 10/15/2025 93874-48 / / [id number] System Stent Vascular Self Expanding Over The Wire Sterile Innova [id number] - S0 - [id number] Implanted:Qty: 1 on 10/31/2022 by Dayo Abdul MD at [facility] Stent N/A: Abdomen [employer] [id number] 12/06/2026 [id number] / 0 / [id number] Stent Icast Covered [id number] - [id number] - [id number] Implanted:Qty: 1 on 10/31/2022 by Dayo Abdul MD at [facility] Stent N/A: Abdomen Epion Health[employer]ET [employer] SYSTEMS [facility] [id number] 07/18/2025 [id number] / [id number] / Stent Icast Covered 7mm X 22mm X 120cm - [id number] - [id number] Implanted:Qty: 1 on 07/20/2023 by [place] Willis MD at [facility] Stent [employer] [facility] 05/30/2026 [id number] / [id number] / Description:Implanted in SMA Graft Stent Vbx Balloon Expandable Endoprosthesis Reduced Profile [id number] 11mm Max Post-Dilation With Heparin Catheter [id number] [place] Viabahn - [id number] - [id number] Implanted:Qty: 1 on 02/14/2024 by Santos Willis MD at [facility] Stent N/A: Arterial W L GORE 08/14/2026 [id number] / [id number] / Description:SMA Procedures * Due to [place] state law, this organization might not be sharing negative HIV tests. Procedure Name Priority Date/Time Associated Diagnosis Comments ECG 12-LEAD Routine 11/22/2024 10:27 AM EDT Chest pain, unspecified type CT ANGIOGRAM ABDOMEN PELVIS W CONTRAST Routine 11/22/2024 10:02 AM EDT Chronic mesenteric ischemia COLONOSCOPY 08/15/2023 from Last 3 Months or Most Recently Relevant to Health Maintenance Results * Due to [place] state law, this organization might not be sharing negative HIV tests. * ECG 12 lead (11/22/2024 10:27 AM EDT) Ventricular Rate EKG 68 BPM MUSE EKG Atrial Rate 68 BPM MUSE EKG ND Interval 118 ms MUSE EKG QRS Interval 82 ms MUSE EKG QT Interval 366 ms MUSE EKG QTC Interval 389 ms MUSE EKG P [place] 45 degrees MUSE EKG R [place] 21 degrees MUSE EKG T Wave [place] 1 degrees MUSE EKG 11/22/2024 10:2 7 AM EDT 11/22/2024 4:15 PM EDT Impressions MUSE EKG - 11/22/2024 4:15 PM EDT NORMAL SINUS RHYTHM NORMAL ECG WHEN COMPARED WITH ECG OF 14-FEB-2024 05:59, NO SIGNIFICANT CHANGE WAS FOUND Confirmed by Jason Houston ([id number]) on 11/22/2024 4:15:01 PM us Dayo Abdul [...] obtain the completed interpretation. ? Workstation ID: [id number] Up-to-date CT equipment and radiation dose reduction [...] AND SOFT TISSUES: Unremarkable. Resulting Agency Comment [id number] Procedure Note Tam Horne MD - 11/22/2024 [...] possible to obtain thecompleted interpretation. Workstation ID: [id number] Up-to-date CT equipment and radiation dose reduction techniques wereemployed. CTDIvol: 1.2 - 10.4 mGy. DLP: 992 mGy-cm. us Dayo Abdul MD IMG CT PROCEDURES Final Resul t * COLONOSCOPY (08/15/2023) Narrative Procedure Note Anthony Thomas MD PhD - 08/15/2023 3:15 PM EST [facility] Gastroenterology Patient Name: Seth Hui Procedure Date: 08/15/2023 3:15 PM Date of : 1975 Admit Type: Inpatient Age: 48 Room: [place] [address] Gender: Male Note Status: Finalized Attending MD: [...] the physician, the nurse, theanesthetist and the build technician in the pre-procedure area in the [...] Most Recently Relevant to Health Maintenance Insurance [facility] MEDICAID Advance Directives Documents on File Type Date Recorded Patient Hand Buffing Wheel Former Expl miko Health Care Proxy 07/24/2023 2:11 [...] Zeng Spouse Health Care Agent Care Teams Jazz Musician Relationship Specialty Start Date End Date Ngoc Fung MD [address] [place] [address] PCP - General Internal Medicine 09/19/22
--- OUTSIDE RECORDS SUMMARY | 2025-02-02 13:13 | XMS_ITS | Encounter Summary ---
Author Organization [facility] Address [address] [place] [address] Care Team Providers Care Mosaic Floor Layer Name Role Phone Ngoc Fung MD Primary Care Provider Reason for Visit * Reason Comments Med Change Request Encounter Details Date Type Department Care Team (Late st Contact Info) Description 09/11/2023 Refill [facility] [address] [place] [address] Gina Wyatt, DO [address] [place] [address] Social History Tobacco Use Types Packs/Day Years [...] Info) Description 11/28/2025 10:15 AM EDT Appointment [facility] ACC Vascular Lab [address] [place] [address] Dayo Abdul MD [address] [place] [address] 11/28/2025 11:20 AM EDT Follow-Up [facility] Vascular Surgery [address] [place] [address] Digital Publishing Specialist: Dayo Wynn MD [address] [place] [address] [phone] documented as of this encounter Visit Diagnoses Not on filedocumented in this encounter Care Teams Mosaic Floor Layer Relationship Specialty Start Date End Date Ngoc Fung MD [address] [place] [address] PCP - General Internal Medicine 09/19/22 documented as of this encounter
--- OUTSIDE RECORDS SUMMARY | 2025-02-02 13:13 | XMS_ITS | Encounter Summary ---
Author Organization [facility] Address [address] [place] [address] Care Team Providers Care All Around Presser Name Role Phone Ngoc Fung MD Primary Care Provider Encounter Details Date Type Department Care Team (Late st Contact Info) Description 11/07/2022 Orders Only [address] [address] Selam Hinojosa, SEO EXECUTIVE [address] [place] [address] Social History Tobacco Use Types Packs/Day Years [...] Info) Description 11/28/2025 10:15 AM EDT Appointment [facility] ACC Vascular Lab [address] [place] [address] Dayo Abdul MD [address] [place] [address] 11/28/2025 11:20 AM EDT Follow-Up [facility] Building Vascular Surgery [address] [place] [address] Outside Plant Cable Engineer: Dayo Wynn MD [address] [place] [address] documented as of this encounter Visit Diagnoses Not on filedocumented in this encounter Care Teams All Around Presser Relationship Specialty Start Date End Date Ngoc Fung MD [address] [place] [address] PCP - General Internal Medicine 09/19/22 documented as of this encounter
--- OUTSIDE RECORDS SUMMARY | 2025-02-02 13:13 | XMS_ITS | Encounter Summary ---
Author Organization [facility] Address [address] [place] [address] Care Team Providers Care Tenter Frame Back Tender Name Role Phone Ngoc Fung MD Primary Care Provider Encounter Details Date Type Department Care Team (Late st Contact Info) Description 10/31/2022 Orders Only [facility] [address] [place] [address] Selam Hinojosa, ENDOSCOPY TECHNICAN [address] [place] [address] Claudication of left lower extremity (Primary Dx) [...] Info) Description 11/28/2025 10:15 AM EDT Appointment [facility] ACC Vascular Lab [address] [place] [address] Dayo Abdul MD [address] [place] [address] 11/28/2025 11:20 AM EDT Follow-Up [facility] Building Vascular Surgery [address] [place] [address] Director Of Consumer Marketing: Dayo Wynn MD [address] [place] [address] documented as of this encounter Results * [...] claudication in calves bilaterally us Selam Hinojosa ENDOSCOPY TECHNICAN CV VASCULAR PROCEDURES Fin al Result documented in this encounter Visit Diagnoses Diagnosis Claudication of left lower extremity (HCC)- Primary Claudication of left lower extremity (HCC) documented in this encounter Care Teams Tenter Frame Back Tender Relationship Specialty Start Date End Date Ngoc Fung MD [address] [place] [address] PCP - General Internal Medicine 09/19/22 documented as of this encounter
--- OUTSIDE RECORDS SUMMARY | 2025-02-02 13:13 | XMS_ITS | Referral Summary ---
Author Organization [facility] Address [address] [place] [address] Care Team Providers Care Astrophysics Teacher Name Role Phone Ngoc Fung MD Primary Care Provider Encounters Date Type Department Care Team Description 12/09/2024 Telephone [facility] Vascular Surgery [address] [place] [address] Coin Box Inspector: Dayo Wynn MD 11/22/2024 10:00 AM EDT Follow-Up [facility] Vascular Surgery [address] [place] [address] Coin Box Inspector: Dayo Wynn MD Chronic mesenteric ischemia (Primary Dx); Chest pain, unspecified type 11/22/2024 9:26 AM EDT - 11/22/2024 11:59 PM EDT Hospital Encounter [facility] CT Scan [address] [place] [address] Dayo Abdul MD Chronic mesenteric ischemia Discharge [...] Garduno. I have send a message to director educational radio to cancer the colonoscopy with Dr. Beck [...] by anesthesia acute pain service. Add hydromorphone HIGHWAY SAFETY ENGINEER to current analgesic regimen -Mobilize out of [...] although he does follow with GI at [place] and records are incomplete in our system. [...] drink = 0.6 oz pur e alcohol) [facility] Utilities Answer Date Recorded In the [...] Info) Description 11/28/2025 10:15 AM EDT Appointment [facility] ACC Vascular Lab [address] [place] [address] Dayo Abdul MD [address] [place] [address] 11/28/2025 11:20 AM EDT Follow-Up [facility] Building Vascular Surgery [address] [place] [address] Coin Box Inspector: Dayo Wynn MD [address] [place] [address] Medical Devices Implanted Type Area Fire Prevention Bureau Captain Device Identifier Shelf Expiration Date Model / Serial / Lot Graft Vascular Hemashield 8mm X 60cm - [id number] - [id number] Implanted:Qty: 1 on 05/07/2024 by Dayo Abdul MD at [facility] Graft N/A: Aorta [employer] [facility] 11/22/2027 [id number] / [id number] / System Closure And Repair Suture-Mediated Perclose Prostyle - [id number] - [id number] Implanted:Qty: 1 on 10/31/2022 by Dayo Abdul MD at [facility] Implant Right: Groin [employer] [id number] 07/15/2024 42140-12 / [id number] / [id number] System Closure And Repair Suture-Mediated Perclose Prostyle - [id number] - [id number] Implanted:Qty: 1 on 10/31/2022 by Dayo Abdul MD at [facility] Implant Right: Groin [employer] [id number] 07/15/2024 79047-50 / [id number] / [id number] Device Closure Vascular Plug 6fr Angio-Seal Vip - S0 - [id number] Implanted:Qty: 1 on 02/13/2023 by Dayo Abdul MD at [facility] Implant Right: Groin [employer] [id number] 10/15/2023 [id number] / 0 / [id number] System Closure And Repair Suture-Mediated Perclose Prostyle - [id number] Implanted:Qty: 2 on 07/20/2023 by Santos Willis MD at [facility] Implant [employer] 03/14/2025 80063-8 3 / / [id number] System Closure And Repair Suture-Mediated Perclose Prostyle - [id number] Implanted:Qty: 3 on 02/14/2024 by Santos Willis MD at [facility] Implant Right: Groin [employer] 10/15/2025 61313-58 / / [id number] System Stent Vascular Self Expanding Over The Wire Sterile Innova [id number] - S0 - [id number] Implanted:Qty: 1 on 10/31/2022 by Dayo Abdul MD at [facility] Stent N/A: Abdomen [place] [employer] [id number] 12/06/2026 [id number] / 0 / [id number] Stent Icast Covered [id number] - [id number] - [id number] Implanted:Qty: 1 on 10/31/2022 by Dayo Abdul MD at [facility] Stent N/A: Abdomen Yesmail [id number] 07/18/2025 25725 / [id number] / Stent Icast Covered 7mm X 22mm X 120cm - [id number] - [id number] Implanted:Qty: 1 on 07/20/2023 by Santos Willis MD at [facility] Stent [employer] SYSTEMS [facility] 05/30/2026 [id number] / [id number] / Description:Implanted in SMA Graft Stent Vbx Balloon Expandable Endoprosthesis Reduced Profile [id number] 11mm Max Post-Dilation With Heparin Catheter 2ucf146mt [place] Vi[employer] - [id number] - [id number] Implanted:Qty: 1 on 02/14/2024 by Santos Willis MD at [facility] Stent N/A: Arterial W L GORE 08/14/2026 [id number] 2A / [id number] / Description:SMA Procedures * Due to [place] Qri[place] law, this organization might not be sharing negative HIV tests. Procedure Name Priority Date/Time Associated Diagnosis Comments ECG 12-LEAD Routine 11/22/2024 10:27 AM EDT Chest pain, unspecified type CT ANGIOGRAM ABDOMEN PELVIS W CONTRAST Routine 11/22/2024 10:02 AM EDT Chronic mesenteric ischemia COLONOSCOPY 08/15/2023 from Last 3 Months or Most Recently Relevant to Health Maintenance Results * Due to [place] Qriously law, this organization might not be sharing negative HIV tests. * ECG 12 lead (11/22/2024 10:27 AM EDT) Ventricular Rate EKG 68 BPM MUSE EKG Atrial Rate 68 BPM MUSE EKG CO Interval 118 ms MUSE EKG QRS Interval 82 ms MUSE EKG QT Interval 366 ms MUSE EKG QTC Interval 389 ms MUSE EKG P [place] 45 degrees MUSE EKG R [place] 21 degrees MUSE EKG T Wave [place] 1 degrees MUSE EKG 11/22/2024 10:2 7 AM EDT 11/22/2024 4:15 PM EDT Impressions MUSE EKG - 11/22/2024 4:15 PM EDT NORMAL SINUS RHYTHM NORMAL ECG WHEN COMPARED WITH ECG OF 14-FEB-2024 05:59, NO SIGNIFICANT CHANGE WAS FOUND Confirmed by Jason Houston ([id number]) on 11/22/2024 4:15:01 PM us Dayo Abdul [...] obtain the completed interpretation. ? Workstation ID: [id number] Up-to-date CT equipment and radiation dose reduction [...] AND SOFT TISSUES: Unremarkable. Resulting Agency Comment [id number] Procedure Note Tam Horne MD - 11/22/2024 [...] possible to obtain thecompleted interpretation. Workstation ID: [id number] Up-to-date CT equipment and radiation dose reduction techniques wereemployed. CTDIvol: 1.2 - 10.4 mGy. DLP: 992 mGy-cm. us Dayo Abdul MD IMG CT PROCEDURES Final Resul t * COLONOSCOPY (08/15/2023) Narrative Procedure Note Anthony Thomas MD PhD - 08/15/2023 3:15 PM EST [facility] Gastroenterology Patient Name: Seth Hui Procedure Date: 08/15/2023 3:15 PM Date of : 1975 Admit Type: Inpatient Age: 48 Room: [place] [address] Gender: Male Note Status: Finalized Attending MD: [...] the physician, the nurse, theanesthetist and the limited radiology technician in the pre-procedure area in the [...] Most Recently Relevant to Health Maintenance Insurance [facility] MEDICAID Advance Directives Documents on File Type Date Recorded Patient Numerical Control Router Operator Expl anation Health Care Proxy 07/24/2023 2:11 [...] Zeng Spouse Health Care Agent Care Teams Astrophysics Teacher Relationship Specialty Start Date End Date Ngoc Fung MD [address] [place] [address] PCP - General Internal Medicine 09/19/22
[2025-02-02] MEDS: Dicyclomine HCl 10 MG CAPSULE PO (13:22)
[2025-02-02] MEDS: Lidocaine HCl Viscous 2 % 15 ML SOLUTION MUCOUS MEM (13:23)
[2025-02-02] MEDS: Magnesium Hydrox/Alum Hydrox 30 ML ORAL.SUSP PO (13:23)
[2025-02-02 16:14] VITALS: RESP 16
[2025-02-02] MEDS: HYDROmorphone HCl 1 MG/ML SYRINGE IM (16:14)
[2025-02-02 17:00] VITALS: RESP 16
[2025-02-02 17:06] VITALS: BP 120/75; PULSE 75; RESP 16; TEMP 36.4; O2SAT 99
[2025-02-02 18:12] VITALS: BP 120/75; PULSE 75; RESP 16; TEMP 36.4; O2SAT 99
== END 2025-02-02 18:12 | disposition home or self-care (01) ==
PROVIDERS: Emergency Provider Emergency Medicine; PCP Internal Medicine
DX: R10.13 Epigastric pain (principal); Z79.899 Other long term (current) drug therapy
CPT/HCPCS: 36415; 80053; 85025; 96372; 99284; J1171

== ENCOUNTER 2025-02-21 13:49 | Outpatient (AMB) | payer MEDICARE, MEDICAID, SELFPAY ==
--- NOTE | 2025-02-21 13:55 | MHC.OFFVIS ---
Vital Signs 02/21/25 14:01 Height 6 ft Weight 147 lb 11.355 oz BMI 20.0 BP 121/65 Blood Pressure Location Lt brachial Position Sitting Pulse 80 Intake Visit Reasons: ED f/u Intake Note: Seth presents in the office as a follow up for the ED. CC: Stomach pains severely, back and forth with constipation and diarrhea. He was losing blood before he could smell the blood and he states that he has been having that scent again. HBG went down last time he went to the ED. He does not have an appetite - states that food could in front of him and he has no desire to eat. Losing a lot of weight. 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 Patient had noted melenic stools for several days and HGB had been trending down -HGB today was around 5-6 g/dl and he felt weak and fatigued. He denies fevers, chills, nausea, vomiting, diarrhea, BRBPR, palpitations, sob, chest pain but does have lightheadedness. He has been compliant with octreotide a home. He spoke w/ his vasc surgeon at [facility] and talk of possible bypass graft/ He had EGD 03/24/24 with area of bleeding noted in distal duodenum treated with hemospray. LAST CTA 03/22/24: patent SMA stent, no active bleeding source seen He went to ED x 2 02/06 with epigastric pain, -imaging with cholelithiasis, and chronci vascular changes with stent INTERIM: He has had few months of chest pain, feels like somebody squeezing--not going into neck or back can feel SOB last attack 2 weeks ago, not had any further attack since then he is taking sucralfate, thinks it helps going between constipation and looser stools appetite is poor stopped THC for a while but went back on to it still smoking cigs EXAM: GENERAL: The patient is well developed and nontoxic. VITAL SIGNS:see workflow HEENT: Nonicteric sclerae, PERRLA, EOMI. Oropharynx clear. Moist mucous membranes. Conjunctivae appear well perfused. No thyroid mass. CHEST: Chest wall is nontender. HEART: Regular rate and rhythm without murmurs. LUNGS: Clear to auscultation bilaterally. ABDOMEN: Soft, positive bowel sounds, nontender, no organomegaly.no flank tenderness--scar in mid line SKIN: No rash, no excessive bruising, petechiae, or purpura. NEUROLOGIC: Cranial nerves II-XII intact without motor/sensory deficit. Psych: normal affect ECG with inf leads changes A/P: 1/ Chest pain, smoker, ECG changes, needs cardiac eval, ddx: esophageal spasm, PLAN: 1/ cards referral 2/ advised to cont with carafate 3/ ba swallow 4/ advised to stop smoking PFSH Medical History Cholelithiasis AVM (arteriovenous malformation) of duodenum, acquired with hemorrhage Vitamin D deficiency Mesenteric artery thrombosis CAD (coronary artery disease) Hyperlipidemia Superior mesenteric artery stenosis Celiac artery stenosis Vaccine refused by patient (~09/05/23) Cigar smoker unmotivated to quit Chronic vascular insufficiency of intestine Impaired fasting glucose Diarrhea Granular cell tumor Chronic GERD Surgical History H/O heart artery stent History of esophagogastroduodenoscopy (EGD) Hx of colectomy Hx of appendectomy Hx of colonoscopy Family History Maternal Aunt No problems noted. Maternal Aunt No problems noted. Social History Household Members: Spouse Housing: Apartment Do you presently have visiting nurse or other home services: No Alcohol intake: former Patient Tobacco Use Status: Former Tobacco user Tobacco use type: Cigar Years Smoked: 3 e-Cigarette/Vaping Use: Never Used Substance Use Type: Marijuana Advance Directives Date on File: 05/19/24 service: No Current occupational status: disabled Current occupational exposures/hazards: No Cognitive needs: No Hearing needs: No Vision needs: No Physical Exam Vital Signs: Last Vital Signs Pulse 80 02/21/25 14:01 BP 121/65 02/21/25 14:01 BMI result Body Mass Index 20.0 Assessment & Plan Assessment & Plan (1) Chest pain: Code(s): R07.9 - Chest pain, unspecified Category: Medical Plan: as above Orders: Orders [place] barium swallow with air Today Shamar Garduno MD R13.10 - Dysphagia, unspecified Referrals Cardiology Referral Shamar Garduno MD R07.9 - Chest pain, unspecified Medications: Refilled mirtazapine take 1/2 tab for 1 week then full dose 15 mg PO BEDTIME 30 tabs 2RF Ngoc Fung MD ondansetron 4 mg PO Q8H PRN 10 tabs 0RF nausea and vomiting Ngoc Fung MD sucralfate 1 g PO TID 60 tabs 1RF Shamar Garduno MD Coding Level of Care Code Est Pt Level 4 (19680) Diagnoses Chest pain R07.9
[2025-02-21 14:01] VITALS: BP 121/65; PULSE 80
--- OUTSIDE RECORDS SUMMARY | 2025-02-21 15:39 | XMS_ITS | Encounter Summary ---
Author Organization [facility] Address [address] [place] [address] Care Team Providers Care Merchandise Director Name Role Phone Ngoc Fung MD Primary Care Provider Reason for Visit * Reason Comments Med Change Request Encounter Details Date Type Department Care Team (Late st Contact Info) Description 09/11/2023 Refill [facility] [address] [place] [address] Gina Wyatt, DO [address] [place] [address] Social History Tobacco Use Types Packs/Day Years [...] Info) Description 11/28/2025 10:15 AM EDT Appointment [facility] ACC Vascular Lab [address] [place] [address] Dayo Abdul MD [address] [place] [address] 11/28/2025 11:20 AM EDT Follow-Up [facility] Vascular Surgery [address] [place] [address] Clinical Massage Therapist: Dayo Wynn MD [address] [place] [address] [phone] documented as of this encounter Visit Diagnoses Not on filedocumented in this encounter Care Teams Merchandise Director Relationship Specialty Start Date End Date Ngoc Fung MD [address] [place] [address] PCP - General Internal Medicine 09/19/22 documented as of this encounter
== END 2025-02-21 14:23 | disposition home or self-care (01) ==
LOC: HO.HGI 13:50
PROVIDERS: PCP Internal Medicine; Visit Provider Internal Medicine Gastroenterology
DX: R07.9 Chest pain, unspecified (principal)
CPT/HCPCS: 99214

== ENCOUNTER → 2025-02-21 13:49 | Outpatient (BNVA) | payer MEDICARE, MEDICAID, SELFPAY | PROVIDERS: PCP Internal Medicine; Visit Provider Internal Medicine Gastroenterology | DX: R07.9 Chest pain, unspecified (principal) | CPT/HCPCS: 99212 ==

== ENCOUNTER 2025-03-14 13:48 | Outpatient (AMB) | payer MEDICAID, SELFPAY ==
[2025-03-14 13:55] VITALS: BP 119/64; PULSE 100; TEMP 37.3; O2SAT 99; BMI 20.1
--- NOTE | 2025-03-14 13:55 | A.OFFVIS_ITS ---
Vital Signs 3 03/14/25 13:55 Height 6 ft Weight 148 lb 2.41 oz BMI 20.1 BP 119/64 Blood Pressure Location Rt brachial Position Sitting Pulse 100 Pulse Source Pulse Oximeter Temp 99.1 F Temp Source Temporal Artery Scan Pulse Oximetry (%) 99 Oxygen Delivery Method Room Air Intake Visit Reasons: calculus of gallbladder Intake Note: Pt presents to the office today for calculus of gallbladder. Pt states he has abdominal pain that comes and goes. Pt states he also has a decreased appetite Allergies No Known Allergies Allergy (Verified 03/14/25 13:55) Medication List - Last Reconciled 03/14/25 by Brennen Padilla MD aspirin 81 mg PO DAILY atorvastatin 40 mg PO DAILY lansoprazole 30 mg PO DAILY mirtazapine 15 mg PO BEDTIME ondansetron 4 mg PO Q8H PRN sennosides (senna) 17.2 mg PO BID sucralfate 1 g PO TID HPI Comments Details: 49-year-old male patient presenting with complaints of a abdominal and chest pain felt to possibly be related to gallstones. He has a significant vascular history with a history of mesenteric ischemia, status post SMA bypass. He reports the pain in the chest be intermittent and generally associated with meals but generally is unpredictable. He reports a tightness sensation in his chest but has previously been evaluated for cardiac source of the pain. The pain seems to be made worse with fatty foods but currently he is unable to do much other than soup to avoid nausea. He subsequently underwent evaluation with ultrasound of the abdomen which revealed gallstones within the gallbladder. He saw Dr. Garduno who felt that the gallbladder may be causing his symptoms. [facility] Medical History Cholelithiasis AVM (arteriovenous malformation) of duodenum, acquired with hemorrhage Vitamin D deficiency Mesenteric artery thrombosis CAD (coronary artery disease) Hyperlipidemia Superior mesenteric artery stenosis Celiac artery stenosis Vaccine refused by patient (~09/05/23) Cigar smoker unmotivated to quit Chronic vascular insufficiency of intestine Impaired fasting glucose Diarrhea Granular cell tumor Chronic GERD Surgical History H/O heart artery stent History of esophagogastroduodenoscopy (EGD) Hx of colectomy Hx of appendectomy Hx of colonoscopy Family History Maternal Aunt No problems noted. Maternal Aunt No problems noted. Social History Household Members: Spouse Housing: Apartment Do you presently have visiting nurse or other home services: No Alcohol intake: former Patient Tobacco Use Status: Former Tobacco user Tobacco use type: Cigar Years Smoked: 3 e-Cigarette/Vaping Use: Never Used Substance Use Type: Marijuana Advance Directives Date on File: 05/19/24 service: No Current occupational status: disabled Current occupational exposures/hazards: No Cognitive needs: No Hearing needs: No Vision needs: No Review of Systems Const All systems reviewed & are unremarkable except as noted in HPI and below Physical Exam Vital Signs: Last Vital Signs Temp 99.1 F 03/14/25 13:55 Pulse 100 03/14/25 13:55 BP 119/64 03/14/25 13:55 Pulse Ox 99 03/14/25 13:55 Oxygen Delivery Method Room Air 03/14/25 13:55 BMI result Body Mass Index 20.1 Const General: cooperative and no acute distress Nutritional Appearance: well nourished Orientation/consciousness: patient oriented x3 Limitations: no limitations HEENT Head: Yes normocephalic and Yes atraumatic Ears: hearing grossly normal bilaterally Resp Effort & Inspection: normal respiratory effort, no audible wheezes, no cough and no respiratory distress Cardio Jugular venous distension: no JVD GI Other: Generous midline incision which is well healed, no hernia, tender in the right upper quadrant over the gallbladder, positive Flores sign. No peritoneal signs Inspection: Yes normal to inspection Abdomen image: 2 1. Midline incision Skin Other: Warm, dry, no rash Neuro General: patient oriented x3 Extrem General: Yes no clubbing, cyanosis or edema Assessment & Plan Assessment & Plan (1) Cholelithiasis: Code(s): K80.20 - Calculus of gallbladder without cholecystitis without obstruction Category: Medical Qualifiers: Cholelithiasis location: gallbladder Cholecystitis presence: with cholecystitis Cholecystitis acuity: chronic Biliary obstruction: without biliary obstruction Qualified Code(s): K80.10 - Calculus of gallbladder with chronic cholecystitis without obstruction (2) Cyclic vomiting syndrome: Code(s): R11.15 - Cyclical vomiting syndrome unrelated to migraine Category: Medical (3) Right upper quadrant abdominal pain: Code(s): R10.11 - Right upper quadrant pain Category: Medical Plan 49-year-old male patient presenting with complaints of right upper quadrant and midline chest discomfort found to have multiple gallstones within the gallbladder. Patient has had previous vascular surgery with a large midline incision but is tender in the right upper quadrant with a positive Flores sign. Given his obvious risks due to his vascular history, I recommended further evaluation with a HIDA scan. He will return following the study to review the results and discuss treatment options. He expressed understanding and agrees with the plan. Orders: Orders 2 NM hepatobiliary w pharm Today K80.10 - Calculus of gallbladder with chronic cholecystitis without obstruction, R10.11 - Right upper quadrant pain, R11.15 - Cyclical vomiting syndrome unrelated to migraine Coding Level of Care Code New Pt Level 4 (00316) Diagnoses Calculus of gallbladder with chronic cholecystitis without obstruction K80.10 Cholelithiasis location: gallbladder Cholecystitis presence: with cholecystitis Cholecystitis acuity: chronic Biliary obstruction: without biliary obstruction Cyclic vomiting syndrome R11.15 Right upper quadrant abdominal pain R10.11
--- OUTSIDE RECORDS SUMMARY | 2025-03-14 14:19 | XMS_ITS | Encounter Summary ---
Author Organization [facility] Address [address] [place] [address] Care Team Providers Care Forge Operator Helper Name Role Phone Ngoc Fung MD Primary Care Provider Reason for Visit * Reason Comments Med Change Request Encounter Details Date Type Department Care Team (Late st Contact Info) Description 09/11/2023 Refill [facility] [address] [place] [address] Gina Wyatt, DO [address] [place] [address] Social History Tobacco Use Types Packs/Day Years [...] Info) Description 11/28/2025 10:15 AM EDT Appointment [facility] ACC Vascular Lab [address] [place] [address] Dayo Abdul MD [address] [place] [address] 11/28/2025 11:20 AM EDT Follow-Up [facility] Vascular Surgery [address] [place] [address] Stevedoring Superintendent: Dayo Wynn MD [address] [place] [address] [phone] documented as of this encounter Visit Diagnoses Not on filedocumented in this encounter Care Teams Forge Operator Helper Relationship Specialty Start Date End Date Ngoc Fung MD [address] [place] [address] PCP - General Internal Medicine 09/19/22 documented as of this encounter
== END 2025-03-14 14:21 | disposition home or self-care (01) ==
LOC: HO.HGS 13:49
PROVIDERS: PCP Internal Medicine; Visit Provider Surgery
DX: K80.10 Calculus of gallbladder with chronic cholecystitis without obstruction (principal); R11.15 Cyclical vomiting syndrome unrelated to migraine; R10.11 Right upper quadrant pain
CPT/HCPCS: 99204

== ENCOUNTER → 2025-03-14 13:48 | Outpatient (BNVA) | payer MEDICARE, MEDICAID, SELFPAY | PROVIDERS: PCP Internal Medicine; Visit Provider Surgery | DX: K80.10 Calculus of gallbladder with chronic cholecystitis without obstruction (principal); R11.15 Cyclical vomiting syndrome unrelated to migraine; R10.11 Right upper quadrant pain | CPT/HCPCS: 99202 ==

== ENCOUNTER 2025-03-16 13:52 | Outpatient (AMB) | payer MEDICARE, MEDICAID, SELFPAY ==
[2025-03-16 13:59] VITALS: BP 122/62; PULSE 87; BMI 19.4
--- NOTE | 2025-03-16 13:59 | MHC.OFFVIS ---
Vital Signs 03/16/25 13:59 Height 6 ft Weight 143 lb 4.807 oz BMI 19.4 BP 122/62 Blood Pressure Location Lt brachial Position Sitting Pulse 87 Pulse Source Pulse Oximeter Intake Visit Reasons: s/p [facility] cp/ ekg Allergies No Known Allergies Allergy (Verified 03/14/25 13:55) Medication List - Last Reconciled 03/16/25 by Angel Flynn NP aspirin 81 mg PO DAILY lansoprazole 30 mg PO DAILY HPI Comments Details: This is a 49-year-old male patient referred to us from Gastroenterology for reports of chest pain. Patient with a history of hyperlipidemia, DVT and prior mesenteric ischemia with SMA stenting and ileocecectomy with subsequent SMA thrombectomy and relining, with celiac artery stenting at [facility] in February 2024, and status post aorto- SMA bypass on April [address] Dayo Abdul at [facility] in [place]. Patient is currently only on baby aspirin and lansoprazole. Patient states that in the last couple of months, patient has been having mid chest tightness lasting couple of minutes to hours which can occur with both exertion as well as at rest. Patient states that during these times he gets a little shortness of breath. Patient is noting that his symptoms are getting more frequent. Patient otherwise denies any symptoms of palpitations, dizziness, orthopnea, PND, leg edema, presyncope, or syncope. Unfortunately, patient is a smoker and continues to smoke. [facility] Medical History Cholelithiasis AVM (arteriovenous malformation) of duodenum, acquired with hemorrhage Vitamin D deficiency Mesenteric artery thrombosis CAD (coronary artery disease) Hyperlipidemia Superior mesenteric artery stenosis Celiac artery stenosis Vaccine refused by patient (~09/05/23) Cigar smoker unmotivated to quit Chronic vascular insufficiency of intestine Impaired fasting glucose Diarrhea Granular cell tumor Chronic GERD Surgical History H/O heart artery stent History of esophagogastroduodenoscopy (EGD) Hx of colectomy Hx of appendectomy Hx of colonoscopy Family History Maternal Aunt No problems noted. Maternal Aunt No problems noted. Social History Household Members: Spouse Housing: Apartment Do you presently have visiting nurse or other home services: No Alcohol intake: former Patient Tobacco Use Status: Former Tobacco user Tobacco use type: Cigar Years Smoked: 3 e-Cigarette/Vaping Use: Never Used Substance Use Type: Marijuana Advance Directives Date on File: 05/19/24 service: No Current occupational status: disabled Current occupational exposures/hazards: No Cognitive needs: No Hearing needs: No Vision needs: No Review of Systems Const Denies weakness ENT Denies dizziness Card Denies chest pain, Denies chest pain with activity, Denies syncope, Denies rapid heart rate, Denies pedal edema, Denies edema, Denies leg edema, Denies lightheadedness, Denies palpitations, Denies dyspnea, Denies dyspnea on exertion and Denies orthopnea Resp Denies cough, Denies dyspnea and Denies dyspnea on exertion GI Denies hematochezia and Denies change in stool character Musc Denies abnormal gait, Denies muscle cramps, Denies muscle weakness, Denies numbness, Denies radiating pain into limb and Denies tingling Neuro Denies abnormal gait, Denies dizziness, Denies syncope, Denies numbness, Denies tingling and Denies weakness Endo Denies palpitations Physical Exam Vital Signs: Last Vital Signs Pulse 87 03/16/25 13:59 BP 122/62 03/16/25 13:59 BMI result Body Mass Index 19.4 Const General: cooperative, comfortable and no acute distress Orientation/consciousness: patient oriented x3 HEENT Head: Yes normal to inspection Neck Neck: Yes normal visual inspection, Yes trachea midline and Yes supple Chest Chest palpation & inspection: normal inspection of the chest Resp Effort & Inspection: normal respiratory effort Auscultation: clear to auscultation bilaterally, no crackles, no rales, no rhonchi and no wheezes Cardio Jugular venous distension: no JVD Palpation: normal PMI Rate: regular rate Rhythm: regular rhythm Heart sounds: S1 normal heart sound present, S2 normal heart sound present, no click, no gallops, no murmurs and no rubs Peripheral pulses: Peripheral pulses 2+ throughout GI Inspection: Yes normal to inspection Palpation (GI): Soft to palpation Auscultation: normal bowel sounds Skin General skin exam: no rashes or lesions noted Neuro General: patient oriented x3 Extrem General: Yes normal to inspection, No no pedal edema and No calf tenderness Psych Appearance: grossly normal Mental Status: mental status grossly normal Speech and movement: Normal speech and movement present Assessment & Plan Assessment & Plan (1) Chest pain: Code(s): R07.9 - Chest pain, unspecified Category: Medical Plan: Given patient's complaints of chest pain, we will proceed with a myocardial perfusion study to look for any ischemic changes. If unable to walk, we can pursue Lexiscan. We will also get an echocardiogram to look for any LV systolic and diastolic dysfunction as well as wall motion abnormality. We will try to get these testings done in the next 3-4 weeks. (2) Mesenteric artery thrombosis: Code(s): K55.069 - Acute infarction of intestine, part and extent unspecified Category: Medical Plan: History of mesenteric stenting now status post aorto-SMA bypass graft in April of 2024. Continue aspirin therapy. We will try to obtain records from [facility] in [place]. (3) Hyperlipidemia: Code(s): E78.5 - Hyperlipidemia, unspecified Category: Medical Plan: Patient most recent LDL at 167 from July of 2024. Patient is currently not on any statin therapy. We will get a lipid profile and restart his atorvastatin depending on the values. LDL goal less than 70. (4) Smoker: Code(s): F17.200 - Nicotine dependence, unspecified, uncomplicated Category: Social Hx Plan: Patient continues to smoke. Emphasized on complete smoking cessation. Patient verbalizes understanding and plans on quitting. Recommended trying gums. Advised heart healthy diet, med compliance, and aggressive management of vascular risk factors. We will follow up after completion of the test. In the interim, patient will call the office with any concerns or change in symptoms. Advised seeking ER care in case of exertional chest pain not resolved with rest. This note was generated using voice recognition software. While every effort has been made to ensure accuracy and proper stitcher feeder, there may be occasional errors that could affect the content or meaning of the described symptoms. Orders: Orders Lipid Panel Today E78.5 - Hyperlipidemia, unspecified CA echo transthoracic complete Today R07.9 - Chest pain, unspecified NM cardiolite stress test 4 Weeks R07.9 - Chest pain, unspecified CA stress test 4 Weeks R07.9 - Chest pain, unspecified Medications: Discontinued sucralfate Discontinued Reason: Patient no longer taking 1 g PO TID 60 tabs 1RF Coding Level of Care Code New Pt Level 4 (25773) Complex EM visit Add On G2211 Diagnoses Chest pain R07.9 Mesenteric artery thrombosis K55.069 Hyperlipidemia E78.5 Smoker F17.200 Time Spent (min) 34 Comment Time spent in reviewing the chart, test results, assessment, counseling and documentation.
--- OUTSIDE RECORDS SUMMARY | 2025-03-16 14:27 | XMS_ITS | Encounter Summary ---
Author Organization [facility] Address [address] [place] [address] Care Team Providers Care Hand Laster Name Role Phone Ngoc Fung MD Primary Care Provider Reason for Visit * Reason Comments Med Change Request Encounter Details Date Type Department Care Team (Late st Contact Info) Description 09/11/2023 Refill [facility] [address] [place] [address] Gina Wyatt, DO [address] [place] [address] Social History Tobacco Use Types Packs/Day Years [...] Info) Description 11/28/2025 10:15 AM EDT Appointment [facility] ACC Vascular Lab [address] [place] [address] Dayo Abdul MD [address] [place] [address] 11/28/2025 11:20 AM EDT Follow-Up [facility] Vascular Surgery [address] [place] [address] Radio Television Technical Director: Dayo Wynn MD [address] [place] [address] [phone] documented as of this encounter Visit Diagnoses Not on filedocumented in this encounter Care Teams Hand Laster Relationship Specialty Start Date End Date Ngoc Fung MD [address] [place] [id number] PCP - General Internal Medicine 09/19/22 documented as of this encounter
== END 2025-03-16 14:28 | disposition home or self-care (01) ==
LOC: HO.HCS 13:53
PROVIDERS: PCP Internal Medicine
DX: R07.9 Chest pain, unspecified (principal); K55.069 Acute infarction of intestine, part and extent unspecified; E78.5 Hyperlipidemia, unspecified; F17.200 Nicotine dependence, unspecified, uncomplicated
CPT/HCPCS: 99204; G2211

== ENCOUNTER → 2025-03-16 13:52 | Outpatient (BNVA) | payer MEDICARE, MEDICAID, SELFPAY | PROVIDERS: PCP Internal Medicine | DX: K55.069 Acute infarction of intestine, part and extent unspecified (principal); R07.89 Other chest pain; E78.5 Hyperlipidemia, unspecified; Z79.2 Long term (current) use of antibiotics; Z87.891 Personal history of nicotine dependence | CPT/HCPCS: 99202 ==

== ENCOUNTER 2025-04-05 13:40 | Emergency (ER) | payer MEDICARE, SELFPAY ==
--- NOTE | ~2025-04-05 | XR_ITS ---
EXAMINATION: XR CHEST CLINICAL INFORMATION: Chest pain, rule out pneumonia, pneumothorax, CHF COMPARISON: April 05, 2025 TECHNIQUE: Frontal view of the chest was obtained. FINDINGS: Small round metallic foreign body projects along the medial aspect of the right hemidiaphragm. On the prior lateral, its is located in the posterior subcutaneous soft tissues. Heart size is within normal limits. Lungs are clear and well expanded. No bony abnormality is present. XR/XR chest 1V IMPRESSION: No acute disease. Electronically signed by: Ramakrishna Hall MD 04/05/2025 03:03 PM EDT
[2025-04-05 13:44] VITALS: BP 120/79; PULSE 66; O2SAT 98
[2025-04-05 13:47] VITALS: BMI 20.5
[2025-04-05 13:54] VITALS: BP 106/47; PULSE 65; RESP 16; TEMP 36.1; O2SAT 98
--- NOTE | 2025-04-05 13:54 | ED_ITS ---
HPI - Animal Bite General Chief Complaint: Animal Bite Stated Complaint: SYNCOPE, DOG BITE TO HAND Time Seen by Provider: 04/05/25 13:43 Source: patient and EMS Mode of arrival: EMS Limitations: no limitations History of Present Illness ED Provider: Dr. Yandel Marquez HPI narrative: 49-year-old male with a history of 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 , celiac artery stenting ([facility] vascular) 02/2024 hyperlipidemia, iron deficiency anemia, history of peptic ulcer disease, duodenal AVM with hemorrhage, depression, internal hemorrhoidsss, GERD, inflammatory bowel disease, cyclic vomiting who presents emergency department for evaluation of dog by and syncopal episode. Patient states that his 2 dogs were fighting over food. He tried to break up the fight and 1 of his dogs bit his left hand. This caused the patient to get lightheaded, dizzy and faint. He states he has had episodes of fainting in the past due to his mesenteric vascular insufficiency. Paramedics state that why they were putting an IV in him he also had a near syncopal episode. The patient states that he was not ill in any way prior to his dog by in his syncopal episode at home. Patient's last tetanus shot was given on 11/29/2024. He states that his dogs have been vaccinated against rabies in his dogs have not been acting abnormally or have been unusually aggressive. Related Data Previous Rx's ?Medication ?Instructions ?Recorded aspirin 81 mg tablet,delayed 81 mg PO DAILY #90 tabs 1 11/11/23 release lansoprazole 30 mg capsule,delayed 30 mg PO DAILY #90 caps 03/07/25 release amoxicillin 875 mg-potassium 1 tab PO Q12H 5 days #10 tabs 04/05/25 clavulanate 125 mg tablet Allergies Allergy/AdvReac Type Severity Reaction Status Date / Time No Known Allergies Allergy Verified 04/05/25 13:49 Review of Systems Review of Systems: Yes all other systems are reviewed and are negative PMFSH Past Medical History Medical History Cholelithiasis AVM (arteriovenous malformation) of duodenum, acquired with hemorrhage Vitamin D deficiency Mesenteric artery thrombosis CAD (coronary artery disease) Hyperlipidemia 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 Maternal Aunt No problems noted. Social History Social History Household Members: Spouse Housing: Apartment Do you presently have visiting nurse or other home services: No Alcohol intake: former Patient Tobacco Use Status: Former Tobacco user Tobacco use type: Cigar Years Smoked: 3 e-Cigarette/Vaping Use: Never Used Substance Use Type: Marijuana Advance Directives Date on File: 05/19/24 service: No Current occupational status: disabled Current occupational exposures/hazards: No Cognitive needs: No Hearing needs: No Vision needs: No Physical Exam ED Vital Signs: Vital Signs - 24 hr 04/05/25 13:54 Temperature 96.9 F Pulse Rate 65 Respiratory Rate 16 Blood Pressure 106/47 L Pulse Oximetry 98 Oxygen Delivery Method Room Air BMI result Body Mass Index 20.5 Vital signs were normal. Exam: General: Awake, alert in no distress Extremities: Patient has 2 dog bite wounds on either side of the left thumb/thenar eminence. The wounds appear to be relatively superficial in her not actively bleeding. His thumb is neurovascularly intact Medical Decision Making Medical Decision Making MDM Narrative: 49-year-old male with a history of 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 , celiac artery stenting ([facility] vascular) 02/2024 hyperlipidemia, iron deficiency anemia, history of peptic ulcer disease, duodenal AVM with hemorrhage, depression, internal hemorrhoidsss, GERD, inflammatory bowel disease, cyclic vomiting who presents emergency department for evaluation of dog by and syncopal episode. Patient states that his 2 dogs were fighting over food. He tried to break up the fight and 1 of his dogs bit his left hand. This caused the patient to get lightheaded, dizzy and faint. He states he has had episodes of fainting in the past due to his mesenteric vascular insufficiency. Paramedics state that why they were putting an IV in him he also had a near syncopal episode. The patient states that he was not ill in any way prior to his dog by in his syncopal episode at home. Patient's last tetanus shot was given on 11/29/2024. He states that his dogs have been vaccinated against rabies in his dogs have not been acting abnormally or have been unusually aggressive.emergency department for evaluation of dog by and syncopal episode. Patient states that his 2 dogs were fighting over food. He tried to break up the fight and 1 of his dogs bit his left hand. This caused the patient to get lightheaded, dizzy and faint. He states he has had episodes of fainting in the past due to his mesenteric vascular insufficiency. Paramedics state that why they were putting an IV in him he also had a near syncopal episode. The patient states that he was not ill in any way prior to his dog by in his syncopal episode at home. Patient's last tetanus shot was given on 11/29/2024. He states that his dogs have been vaccinated against rabies in his dogs have not been acting abnormally or have been unusually aggressive. Vital signs were normal. Exam did reveal to dog bite wounds over the thenar eminence and dorsal aspect of the left thumb, these wounds break the skin but it appear to be superficial, they were not actively bleeding. Differential diagnosis: ?Includes but is not limited to dog bite to left thumb, vasovagal syncope secondary to pain Course: 14:08 Patient's dog bite wounds were irrigated with water from the faucet for 5 minutes. Patient was given Augmentin 875/125 prophylactically here in the emergency department. Patient was given a prescription for Augmentin 875/125 q.12 hours x5 days. He was advised to take Tylenol for pain and watch for signs of infection. He was given printed and verbal instructions and discharged home. Patient does not need a tetanus shot at this time. Admission/Observation Consideration of admission/observation: Escalation of care including admission/observation considered (No) External Record Review External record reviewed: Other ([place] vaccine registry) Prescription Management I considered prescription management with: Antibiotic (Augmentin) Chronic Conditions Patient?s care impacted by: Other (Hyperlipidemia, inflammatory bowel disease) Discharge Plan Discharge Clinical Impression: Dog bite of left hand, Vasovagal syncope Patient Disposition: Home, Self-Care Instructions: Animal Bite (ED) Additional Instructions: Your dog bite was washed out here in the emergency department. You were given Augmentin (amoxicillin/clavulanate) 875/125 mg orally here in the emergency department. I am giving a prescription for Augmentin 875/125 mg, take 1 pill every 12 hours for 5 days to try to prevent an infection of your dog bite. Take your next dose at bedtime tonight. Then tomorrow take your dose in the morning and then 12 hours later. Take Tylenol (acetaminophen) 500 mg pills, 2 pills every 6 hours as needed for pain or fever. Watch for signs of infection which would include increased redness, increased swelling, increased pain, drainage of pus, red streaks going away from the wound. Your last tetanus shot was given 11/29/2021 so you do not need another tetanus shot until 11/29/2026 for contaminated wound and a booster shot 11/30/2031. Follow-up with your doctor in 2 days. Please return to the emergency department if your symptoms get worse or if you develop any symptoms that are concerning to you. Prescriptions: New amoxicillin-pot clavulanate 875-125 mg tablet 1 tab PO Q12H 5 Days Qty: 10 0RF No Action aspirin 81 mg tablet,delayed release (DR/EC) 81 mg PO DAILY Qty: 90 1RF lansoprazole 30 mg capsule,delayed release(DR/EC) 30 mg PO DAILY Qty: 90 1RF Print Language: Israeli
--- NOTE | 2025-04-05 14:31 | ECG_ITS ---
Test Reason : CHEST PAIN / SYNCOPE Blood Pressure : */* mmHG Vent. Rate : 71 BPM Atrial Rate : 71 BPM P-R Int : 116 ms QRS Dur : 86 ms QT Int : 354 ms P-R-T Axes : 2 51 27 degrees QTcB Int : 384 ms Normal sinus rhythm Normal ECG When compared with ECG of 31-Jan-2025 10:45, No significant change was found Referred By: Yandel Marquez Electronically Signed By: Jordan Ramírez
[2025-04-05 14:53] LABS: MANUAL DIFF FLAG NO
[2025-04-05 14:59] LABS: Hematocrit 30.9 % (42.0-52.0); Hemoglobin 9.5 g/dl (14.0-18.0); Imm Gran Abs Auto 0.02 X10*3/uL (0.00-0.03); Imm Gran Pct Auto 0.2 % (0.0-0.4); Lymphocytes Absolute Auto 1.1 X10*3/uL (1.2-4.9); Mean Corpuscular HGB Conc 30.7 g/dl (31.0-36.0); Mean Corpuscular Hemoglobin 23.1 pg (27.0-33.0); Mean Corpuscular Volume 75.2 fL (80.0-98.0); NRBC Abs Auto 0.000 X10*3/uL (0.0-0.012); NRBC Pct Auto 0.0 /100WBC (0.0-0.2); Platelet Count 303 X10*3/uL (160-400); Red Blood Count 4.11 X10*6/uL (4.60-5.80); White Blood Count 8.4 X10*3/uL (4.8-10.8)
[2025-04-05 15:13] LABS: Alanine Aminotransferase 16 U/L (0-40); Albumin Level 4.2 g/dL (3.5-5.0); Alkaline Phosphatase 70 U/L (39-117); Anion Gap 10 (12-20); Aspartate Amino Transferase 17 U/L (5-37); Blood Urea Nitrogen 10 mg/dL (9-16); Calcium 9.2 mg/dL (8.4-10.2); Carbon Dioxide 28 mmol/L (22-29); Chloride 110 mmol/L (96-108); Creatinine Clr Calc Pharmacy 133.3; Estimated Glomerular Filt Rate > 60; Potassium 4.5 mmol/L (3.3-5.1); Sodium 143 mmol/L (135-145); Total Protein 7.0 g/dL (6.5-8.0)
[2025-04-05 15:17] LABS: B Type Natriuretic Peptide 30 pg/mL (<100)
--- OUTSIDE RECORDS SUMMARY | 2025-04-05 15:28 | XMS_ITS | Encounter Summary ---
Author Organization [facility] Address [address] [place] [address] Care Team Providers Care Structural Steel Ironworker Name Role Phone Ngoc Fung MD Primary Care Provider Reason for Visit * Reason Comments Med Change Request Encounter Details Date Type Department Care Team (Late st Contact Info) Description 09/11/2023 Refill [facility] [address] [place] [address] Gina Wyatt, DO [address] [place] [address] Social History Tobacco Use Types Packs/Day Years [...] Info) Description 11/28/2025 10:15 AM EDT Appointment [facility] ACC Vascular Lab [address] [place] [address] Dayo Abdul MD [address] [place] [address] 11/28/2025 11:20 AM EDT Follow-Up [facility] Vascular Surgery [address] [place] [address] Licensed Tax Consultant: Dayo Wynn MD [address] [place] [address] [phone] documented as of this encounter Visit Diagnoses Not on filedocumented in this encounter Care Teams Structural Steel Ironworker Relationship Specialty Start Date End Date Ngoc Fung MD [address] [place] [address] PCP - General Internal Medicine 09/19/22 documented as of this encounter
--- OUTSIDE RECORDS SUMMARY | 2025-04-05 15:28 | XMS_ITS | Clinical Summary ---
Author Organization [facility] Address [address] [place] [address] Phone Care Team Providers Care Tax Agent Name Role Phone Pcp, Unknown Primary Care Provider Unavailabl e Allergies No known active allergies Medications oxyCODONE 5 MG immediate release tablet Take 1-2 tablets (5-10 mg total) by mouth every 6 (six) hours as needed for pain (specific location in comments). Partial fill ok 8 tablet 12/03/2018 Active Social History Tobacco Use Types Packs/Day Years Used Date Smoking Tobacco: Never Alcohol Use Standard Drinks/Week Comments Yes 0 (1 standard drink = 0.6 oz pur e alcohol) Education Answer Date Recorded Are you interested in more education? Not on adiel e 01/10/2023 Are you concerned about learning? Not on file 01/10/2023 No 01/10/2023 No 01/10/2023 Digital Access Answer Date Recorded No 02/11/2023 No 02/11/2023 No 02/11/2023 Reliable internet access at home? Not on file 02/11/2023 Device with a working camera? Not on file Sex and Gender Information Value Date Recorded Sex Assigned at Not on file Legal Sex Male 6:03 PM EDT Gender Identity Not on file Sexual Orientation Not on file Last Filed Vital Signs Vital Sign Reading Time Taken Comments Blood Pressure 116/69 12/03/2018 12:51 AM EDT Pulse 84 12/03/2018 12:51 AM EDT Temperature 37.4 C (99.3 F) 12/03/2018 12:51 AM EDT Respiratory Rate 18 12/03/2018 12:51 AM EDT Oxygen Saturation 98% 12/03/2018 12:51 AM EDT Inhaled Oxygen Concentration - - Weight 81.6 kg (180 lb) 12/02/2018 6:40 PM EDT Height 182.9 cm (6') 12/02/2018 6:40 PM EDT Body Mass Index 24.41 12/02/2018 6:40 PM EDT Plan of Treatment Not on file Medical Devices Not on file Insurance [facility] HMO Member Subscriber Plan / Payer (Ef fective 2018-Present) Name:Seth Whelan Relation to Subscriber:Self Name:Seth Whelan Payer ID:Not on file Type:HMO Address: [place] [id number] [facility] A[facility] HMO [facility] Member Subscriber Plan / Payer (Ef fective 2018-Present) Name:Seth Whelan Relation to Subscriber:Self Name:Seth Whelan Payer ID:Not on file Type:O Address: [address] [place] [address] [facility] HMO [facility] Member Subscriber Plan / Payer (Ef fective 2018-Present) Name:Seth Whelan Relation to Subscriber:Self Name:Seth Whelan Payer ID:Not on file Type:O [address] [facility] Member Subscriber Plan / Payer (Ef fective 2018-Present) Name:Seth Whelan Relation to Subscriber:Self Name:Seth Whelan Payer ID:Not on file Type:O Address: [address] [facility] Member Subscriber Plan / Payer (Ef fective 2018-Present) Name:Seth Whelan Relation to Subscriber:Self Name:Seth Whelan Payer ID:Not on file Type:HMO Address: [address] [place] [address] [facility] HMO [place] [id number] Care Teams Tax Agent Relationship Specialty Start Date End Date Pcp, Unknown PCP - General 06/11/22 Additional Source Comments The information contained in this document represents components of the legal health record. It is not the complete legal health record.[facility]
[2025-04-05 15:31] LABS: Troponin-I High Sensitivity < 2.7 ng/L (<3.5-35.0)
[2025-04-05 16:58] LABS: Iron 16 mcg/dL (45-160); Percent Iron Saturation 5 % (15-50); Total Iron Binding Capacity 336 mcg/dL (228-428); Unsaturated Iron Binding 320 ug/dL
[2025-04-05 16:59] VITALS: BP 106/47; PULSE 65; RESP 16; TEMP 36.1; O2SAT 98
== END 2025-04-05 17:00 | disposition home or self-care (01) ==
PROVIDERS: Emergency Provider Emergency Medicine Emergency Medical Services; PCP Internal Medicine
DX: R42 Dizziness and giddiness (principal); S60.372A Other superficial bite of left thumb, initial encounter; W54.0XXA Bitten by dog, initial encounter; R07.9 Chest pain, unspecified; R06.02 Shortness of breath; E78.5 Hyperlipidemia, unspecified; Z87.891 Personal history of nicotine dependence; Z79.82 Long term (current) use of aspirin; Y93.89 Activity, other specified; Y92.039 Unspecified place in apartment as the place of occurrence of the external cause; Y99.9 Unspecified external cause status
CPT/HCPCS: 36415; 71045; 80053; 82550; 83540; 83880; 84484; 85025; 93005; 96360; 99284; 99285

== ENCOUNTER → 2025-04-05 14:31 | Outpatient (BNV) | payer MEDICARE, SELFPAY | PROVIDERS: Emergency Provider Emergency Medicine Emergency Medical Services; PCP Internal Medicine; Visit Provider Internal Medicine Cardiovascular Disease | DX: R07.89 Other chest pain (principal); R55 Syncope and collapse | CPT/HCPCS: 93010 ==

== ENCOUNTER → 2025-04-05 14:31 | Outpatient (BNV) | payer MEDICARE, SELFPAY | PROVIDERS: Emergency Provider Emergency Medicine Emergency Medical Services; PCP Internal Medicine; Visit Provider Radiology Diagnostic Radiology | DX: R07.9 Chest pain, unspecified (principal) | CPT/HCPCS: 71045 ==

== ENCOUNTER → 2025-04-11 10:56 | Outpatient (REF) | payer MEDICARE, SELFPAY ==
--- NOTE | ~2025-04-11 | NM_ITS ---
EXAMINATION: NM BILIARY TRACT CLINICAL INFORMATION: R11.15 - Cyclical vomiting syndrome unrelated to migraine, cholelithiasis COMPARISON: Abdominal ultrasound January 31, 2025 [employer]iop[employer]: 5.0mCi technetium 99m labeled mebrofenin Other medications: 1.5mcg CCK infused IV over 30 minutes, one hour post injection of mebrofenin (a.k.a. Choletec) TECHNIQUE: Hepatobiliary scintigraphy was performed after the intravenous administration of technetium 99m labeled Choletec. Imaging was performed every 2 minutes for 60 minutes after which, CCK was infused IV over 30 minutes with imaging continuing for an additional 30minutes. Ejection fraction curve was generated with a region of interest placed over the gallbladder. FINDINGS: After Choletech injection, there is prompt uptake of radiotracer by the liver. Gallbladder filling was visible within 11minutes. Small bowel filling was noted within 40minutes. After CCK infusion, ejection fraction measured 94%. NM/NM hepatobiliary w pharm IMPRESSION: Within normal limits. Electronically signed by: Ramakrishna Hall MD 04/11/2025 12:58 PM EDT
--- OUTSIDE RECORDS SUMMARY | 2025-04-11 12:16 | XMS_ITS | Clinical Summary ---
Author Organization [facility] Address [address] [place] [address] Phone Care Team Providers Care Corporate Claims Examiner Name Role Phone Pcp, Unknown Primary Care [...] file Medical Devices Not on file Insurance [facility] HMO Member Subscriber Plan / Payer (Ef fective 2018-Present) Name:Seth Whelan Relation to Subscriber:Self Name:Seth Whelan Payer ID:Not on file Type:HMO Address: [place] [id number] [facility] ACO [facility] HMO [facility] Member Subscriber Plan / Payer (Ef fective 2018-Present) Name:Seth Whelan Relation to Subscriber:Self Name:Seth Whelan Payer ID:Not on file Type:O Address: [address] [place] [address] [facility] HMO [facility] Member Subscriber Plan / Payer (Ef fective 2018-Present) Name:Seth Whelan Relation to Subscriber:Self Name:Seth Whelan Payer ID:Not on file Type:O [address]: [address] [facility] Member Subscriber Plan / Payer (Ef fective 2018-Present) Name:Seth Whelan Relation to Subscriber:Self Name:Seth Whelan Payer ID:Not on file Type:O [address]: [address] [facility] Member Subscriber Plan / Payer (Ef fective 2018-Present) Name:Seth Whelan Relation to Subscriber:Self Name:Seth Whelan Payer ID:Not on file Type:HMO Address: [address] [place] [address] [facility] HMO [place] [id number] Care Teams Corporate Claims Examiner Relationship Specialty Start Date End Date Pcp, Unknown PCP - General 06/11/22 Additional Source Comments The information contained in this document represents components of the legal health record. It is not the complete legal health record.[facility]
--- OUTSIDE RECORDS SUMMARY | 2025-04-11 12:16 | XMS_ITS | Encounter Summary ---
Author Organization [facility] Address [address] [place] [address] Care Team Providers Care Television Repair Teacher Name Role Phone Ngoc Fung MD Primary Care Provider Reason for Visit * Reason Comments Med Change Request Encounter Details Date Type Department Care Team (Late st Contact Info) Description 09/11/2023 Refill [facility] [address] [place] [address] Gina Wyatt, DO [address] [place] [address] Social History Tobacco Use Types Packs/Day Years [...] Info) Description 11/28/2025 10:15 AM EDT Appointment [facility] ACC Vascular Lab [address] [place] [address] Dayo Abdul MD [address] [place] [address] 11/28/2025 11:20 AM EDT Follow-Up [facility] Vascular Surgery [address] [place] [address] Welder/Installer: Dayo Wynn MD [address] [place] [address] [phone] documented as of this encounter Visit Diagnoses Not on filedocumented in this encounter Care Teams Television Repair Teacher Relationship Specialty Start Date End Date Ngoc Fung MD [address] [place] [address] PCP - General Internal Medicine 09/19/22 documented as of this encounter
== END ==
LOC: HO.NUCMED 10:56
PROVIDERS: PCP Internal Medicine; Visit Provider Surgery
DX: R11.15 Cyclical vomiting syndrome unrelated to migraine (principal); K80.10 Calculus of gallbladder with chronic cholecystitis without obstruction; R10.11 Right upper quadrant pain
CPT/HCPCS: 78227; A9537; J2805

== ENCOUNTER → 2025-04-11 10:58 | Outpatient (BNV) | payer MEDICARE, SELFPAY | PROVIDERS: PCP Internal Medicine; Visit Provider Radiology Diagnostic Radiology | DX: R11.15 Cyclical vomiting syndrome unrelated to migraine (principal) | CPT/HCPCS: 78227 ==

== ENCOUNTER 2025-04-21 13:10 | Outpatient (AMB) | payer OTHER, MEDICAID, SELFPAY ==
--- NOTE | 2025-04-21 13:13 | A.OFFVIS_ITS ---
Vital Signs 04/21/25 13:18 Height 6 ft Weight 146 lb BMI 19.8 BP 128/71 Blood Pressure Location Lt brachial Position Sitting Pulse 112 H Intake Visit Reasons: Calculus of gallbladder Intake Note: Patient is seen in office for HIDA scan results, following for gallbladder. Pt c/o: continued heartburn/reflux, herman HIDA:04/11/25 Coin Wrapping Machine Operator Required: No Accompanied by: Self / Same As Patient Allergies No Known Allergies Allergy (Verified 04/21/25 13:22) HPI Comments Details: 49-year-old male patient presenting with complaints of a abdominal and chest pain felt to possibly be related to gallstones. He has a significant vascular history with a history of mesenteric ischemia, status post SMA bypass. He reports the pain in the chest be intermittent and generally associated with meals but generally is unpredictable. He reports a tightness sensation in his chest but has previously been evaluated for cardiac source of the pain. The pain seems to be made worse with fatty foods but currently he is unable to do much other than soup to avoid nausea. He subsequently underwent evaluation with ultrasound of the abdomen which revealed gallstones within the gallbladder. He saw Dr. Garduno who felt that the gallbladder may be causing his symptoms. Patient was subsequently sent for HIDA scan which revealed normal filling of the gallbladder and a normal ejection fraction. He returns today to review the results of the HIDA scan. Since his last visit he reports no significant abdominal pain. He mainly complains of reflux symptoms. He denies any fever or chills. [facility] Medical History Cholelithiasis AVM (arteriovenous malformation) of duodenum, acquired with hemorrhage Vitamin D deficiency Mesenteric artery thrombosis CAD (coronary artery disease) Hyperlipidemia Superior mesenteric artery stenosis Celiac artery stenosis Vaccine refused by patient (~09/05/23) Cigar smoker unmotivated to quit Chronic vascular insufficiency of intestine Impaired fasting glucose Diarrhea Granular cell tumor Chronic GERD Surgical History H/O heart artery stent History of esophagogastroduodenoscopy (EGD) Hx of colectomy Hx of appendectomy Hx of colonoscopy Family History Maternal Aunt No problems noted. Maternal Aunt No problems noted. Social History Household Members: Spouse Housing: Apartment Do you presently have visiting nurse or other home services: No Alcohol intake: former Patient Tobacco Use Status: Former Tobacco user Tobacco use type: Cigar Years Smoked: 3 e-Cigarette/Vaping Use: Never Used Substance Use Type: Marijuana Advance Directives Date on File: 05/19/24 service: No Current occupational status: disabled Current occupational exposures/hazards: No Cognitive needs: No Hearing needs: No Vision needs: No Review of Systems Const All systems reviewed & are unremarkable except as noted in HPI and below Physical Exam Vital Signs: Last Vital Signs Pulse 112 H 04/21/25 13:18 BP 128/71 04/21/25 13:18 BMI result Body Mass Index 19.8 Const General: cooperative and no acute distress Nutritional Appearance: well nourished Orientation/consciousness: patient oriented x3 Limitations: no limitations HEENT Head: Yes normocephalic and Yes atraumatic Ears: hearing grossly normal bilaterally Resp Effort & Inspection: normal respiratory effort, no audible wheezes, no cough and no respiratory distress Cardio Jugular venous distension: no JVD GI Other: Generous midline incision which is well healed, no hernia, tender in the right upper quadrant over the gallbladder, positive Flores sign. No peritoneal signs Inspection: Yes normal to inspection Skin Other: Warm, dry, no rash Neuro General: patient oriented x3 Extrem General: Yes no clubbing, cyanosis or edema Assessment & Plan Assessment & Plan (1) Cholelithiasis: Code(s): K80.20 - Calculus of gallbladder without cholecystitis without obstruction Category: Medical Qualifiers: Cholelithiasis location: gallbladder Cholecystitis presence: with cholecystitis Cholecystitis acuity: chronic Biliary obstruction: without biliary obstruction Qualified Code(s): K80.10 - Calculus of gallbladder with chronic cholecystitis without obstruction (2) Cyclic vomiting syndrome: Code(s): R11.15 - Cyclical vomiting syndrome unrelated to migraine Category: Medical (3) Right upper quadrant abdominal pain: Code(s): R10.11 - Right upper quadrant pain Category: Medical Plan 49-year-old male patient presenting with complaints of right upper quadrant and midline chest discomfort found to have multiple gallstones within the gallbladder. Patient has had previous vascular surgery with a large midline incision but is tender in the right upper quadrant with a positive Flores sign. Given his obvious risks due to his vascular history, I recommended further evaluation with a HIDA scan. He returns today to review the results of the HIDA scan which revealed normal filling of the gallbladder and a normal ejection fraction. I reviewed the findings in detail with the patient and recommended observation for his cholelithiasis. He is in total agreement and does not wish to have any additional surgery if possible. He should follow up as needed. Coding Level of Care Code Est Pt Level 3 (16940) Diagnoses Calculus of gallbladder with chronic cholecystitis without obstruction K80.10 Cholelithiasis location: gallbladder Cholecystitis presence: with cholecystitis Cholecystitis acuity: chronic Biliary obstruction: without biliary obstruction Cyclic vomiting syndrome R11.15 Right upper quadrant abdominal pain R10.11
--- OUTSIDE RECORDS SUMMARY | 2025-04-21 13:13 | XMS_ITS | Clinical Summary ---
Author Organization [facility] Address [address] [place] [address] Phone Care Team Providers Care Spice Blender Name Role Phone Pcp, Unknown Primary Care [...] file Medical Devices Not on file Insurance [facility] HMO Member Subscriber Plan / Payer (Ef fective 2018-Present) Name:Seth Whelan Relation to Subscriber:Self Name:Seth Whelan Payer ID:Not on file Type:HMO Address: [place] [id number] [facility] ACO [facility] HMO [facility]CO [facility] Member Subscriber Plan / Payer (Ef fective 2018-Present) Name:Seth Whelan Relation to Subscriber:Self Name:Seth Whelan Payer ID:Not on file Type:O Address: [address] ACO [facility] HMO [facility] Member Subscriber Plan / Payer (Ef fective 2018-Present) Name:Seth Whelan Relation to Subscriber:Self Name:Seth Whelan Payer ID:Not on file Type:O [address] [facility] A[facility] Member Subscriber Plan / Payer (Ef fective 2018-Present) Name:Seth Whelan Relation to Subscriber:Self Name:Seth Whelan Payer ID:Not on file Type:O Address: [address] [facility] Member Subscriber Plan / Payer (Ef fective 2018-Present) Name:Seth Whelan Relation to Subscriber:Self Name:Seth Whelan Payer ID:Not on file Type:HMO Address: [address] [place] [address] [facility] HMO [place] [id number] Care Teams Spice Blender Relationship Specialty Start Date End Date Pcp, Unknown PCP - General 06/11/22 Additional Source Comments The information contained in this document represents components of the legal health record. It is not the complete legal health record.[facility]
--- OUTSIDE RECORDS SUMMARY | 2025-04-21 13:13 | XMS_ITS | Encounter Summary ---
Author Organization [facility] Address [address] [place] [address] Care Team Providers Care Crew Boss Name Role Phone Ngoc Fung MD Primary Care Provider Reason for Visit * Reason Comments Med Change Request Encounter Details Date Type Department Care Team (Late st Contact Info) Description 09/11/2023 Refill [facility] [address] [place] [address] Gina Wyatt, DO [address] [place] [address] Social History Tobacco Use Types Packs/Day Years [...] Info) Description 11/28/2025 10:15 AM EDT Appointment [facility] ACC Vascular Lab [address] [place] [address] Dayo Abdul MD [address] [place] [address] 11/28/2025 11:20 AM EDT Follow-Up [facility] Vascular Surgery [address] [place] [address] Pilot Steam Yacht: Dayo Wynn MD [address] [place] [address] [phone] documented as of this encounter Visit Diagnoses Not on filedocumented in this encounter Care Teams Crew Boss Relationship Specialty Start Date End Date Ngoc Fung MD [address] [place] [address] PCP - General Internal Medicine 09/19/22 documented as of this encounter
[2025-04-21 13:18] VITALS: BP 128/71; PULSE 112; BMI 19.8
== END 2025-04-21 13:22 | disposition home or self-care (01) ==
LOC: HO.HGS 13:11
PROVIDERS: PCP Internal Medicine; Visit Provider Surgery
DX: K80.10 Calculus of gallbladder with chronic cholecystitis without obstruction (principal); R11.15 Cyclical vomiting syndrome unrelated to migraine; R10.11 Right upper quadrant pain
CPT/HCPCS: 99213

== ENCOUNTER → 2025-05-24 08:56 | Outpatient (REF) | payer MEDICARE, MEDICAID, SELFPAY ==
--- NOTE | ~2025-05-24 | NM_ITS ---
EXERCISE MYOCARDIAL PERFUSION STUDY INDICATION: Chest pain to evaluate for myocardial ischemia TECHNIQUE: The patient was brought in for an exercise perfusion study on 05/24/2025. Patient performed exercise as per Jayson protocol and was injected 25 mCi of sestamibi once target heart rate was achieved. Images were obtained using the SPECT gamma camera interlaced with the gating device. Images were obtained in supine position. Resting perfusion study was performed on 05/26/2025. Patient was administered 25 mCi of sestamibi intravenously at rest. Images were then obtained in supine position. Images obtained without without CT attenuation. Total DLP 65 mGy-cm. Images were processed with the software and compared side to side in short axis, horizontal long axis and vertical long axis views. FINDINGS: Raw images were reviewed The stress perfusion study showed nonattenuated images show mildly reduced uptake in the inferior wall of the LV myocardium. There is also mildly reduced uptake in the distal septum of the LV myocardium. Attenuated corrected images show mildly reduced uptake in the distal septum as well as apex of the LV myocardium.. The gated study shows normal LV systolic function with calculated LVEF of 56%. LV cavity is mildly dilated in size. The gated study shows normal wall thickening and contraction of segments. Resting study shows attenuated corrected images show improved uptake in the distal septum and apex of the LV myocardium. Gating at rest reveals normal systolic wall motion with ejection fraction at 66%. The findings are consistent with mild intensity small area of reversible defect of the distal septum and apex suggestive ischemia. NM/NM cardiolite stress test IMPRESSION: 1. Myocardial perfusion imaging study shows mild intensity small sized ischemia distal septum and apex. 2. Gated LVEF is 56% with stress and 66% with rest. 3. Transient ischemic dilatation present. EKG revealed negative for ischemia. Electronically signed by: Gurvinder Cherry MD 05/26/2025 04:48 PM EDT
--- NOTE | 2025-05-24 08:59 | CA_ITS ---
Acquisition Time: 2025-05-24 09:16:08 Total Exercise Time: 00:09:05 Test Indications: CHEST PAIN Medications: Protocol: REMY Max HR: 136 BPM 80% of Pred: 170 BPM Max BP: 190/64 mmHG Max Work Load: 10.4 METS Exercise stress test with exercise 9 mins 5 secs of Remy Protocol, achieving 80% MPHR, with reports of SOB and leg pain and numbness, without any chest pain or arrythmias, with normotensive response to exercise. Without any EKG changes meeting criteria for ischemia. In recovery, pt's breathing returned to baseline and leg discomfort improved. Nuclear images pending. Test reviewed with Dr. Cherry. For the leg discomfort and numbness, we will order b/l duplex US. Referred By: Angel Flynn Electronically Signed By: Angel Flynn
--- OUTSIDE RECORDS SUMMARY | 2025-05-24 10:11 | XMS_ITS | Clinical Summary ---
Author Organization [facility] Address [address] [place] [address] Phone Care Team Providers Care Final Coat Sprayer Name Role Phone Pcp, Unknown Primary Care [...] file Medical Devices Not on file Insurance [facility] HMO Member Subscriber Plan / Payer (Ef fective 2018-Present) Name:Seth Whelan Relation to Subscriber:Self Name:Seth Whelan Payer ID:Not on file Type:HMO Address: [place] [id number] [facility] ACO [facility] HMO [facility] ACO [facility] Member Subscriber Plan / Payer (Ef fective 2018-Present) Name:Seth Whelan Relation to Subscriber:Self Name:Seth Whelan Payer ID:Not on file Type:O Address: [address] ACO [facility] HMO ACO [facility] Member Subscriber Plan / Payer (Ef fective 2018-Present) Name:Seth Whelan Relation to Subscriber:Self Name:Seth Whelan Payer ID:Not on file Type:O Address: [address] [facility] ACO [facility] Member Subscriber Plan / Payer (Ef fective 2018-Present) Name:Seth Whelan Relation to Subscriber:Self Name:Seth Whelan Payer ID:Not on file Type:O Address: [address] [facility] Member Subscriber Plan / Payer (Ef fective 2018-Present) Name:Seth Whelan Relation to Subscriber:Self Name:Seth Whelan Payer ID:Not on file Type:HMO Address: [address] [place] [address] [facility] HMO [place] [id number] Care Teams Final Coat Sprayer Relationship Specialty Start Date End Date Pcp, Unknown PCP - General 06/11/22 Additional Source Comments The information contained in this document represents components of the legal health record. It is not the complete legal health record.[facility]
--- OUTSIDE RECORDS SUMMARY | 2025-05-24 10:11 | XMS_ITS | Encounter Summary ---
Author Organization [facility] Address [address] [place] [address] Care Team Providers Care Public Works Supervisor Name Role Phone Ngoc Fung MD Primary Care Provider Reason for Visit * Reason Comments Med Change Request Encounter Details Date Type Department Care Team (Late st Contact Info) Description 09/11/2023 Refill [facility] [address] [place] [address] Gina Wyatt, DO [address] [place] [address] Social History Tobacco Use Types Packs/Day Years [...] [facility] ACC Vascular Lab [address] [place] [address] Dayo Abdul MD [address] [place] [address] 11/28/2025 11:20 AM EDT Follow-Up [facility] Vascular Surgery [address] [place] [address] Addiction Therapist: Dayo Wynn MD [address] [place] [address] [phone] documented as of this encounter Visit Diagnoses Not on filedocumented in this encounter Care Teams Public Works Supervisor Relationship Specialty Start Date End Date Ngoc Fung MD [address] [place] [address] PCP - General Internal Medicine 09/19/22 documented as of this encounter
--- OUTSIDE RECORDS SUMMARY | 2025-05-24 10:11 | XMS_ITS | Encounter Summary ---
Author Organization [facility] Address [address] [place] [address] Care Team Providers Care Vascular Manager Name Role Phone Ngoc Fung MD Primary Care Provider Reason for Visit * Reason Comments Med Change Request Encounter Details Date Type Department Care Team (Late st Contact Info) Description 08/12/2023 Refill [facility] [address] [place] [address] Len Davis MD [address] [facility] [place] [address] Social History Tobacco Use Types Packs/Day Years [...] Info) Description 11/28/2025 10:15 AM EDT Appointment [facility] ACC Vascular Lab [address] [place] [address] Dayo Abdul MD [address] [place] [phone] 11/28/2025 11:20 AM EDT Follow-Up [facility] Vascular Surgery [address] [place] [address] Compounding Technician: Dayo Wynn MD [address] [place] [address] documented as of this encounter Visit Diagnoses Not on filedocumented in this encounter Care Teams Vascular Manager Relationship Specialty Start Date End Date Ngoc Fung MD [address] [place] [address] PCP - General Internal Medicine 09/19/22 documented as of this encounter
--- OUTSIDE RECORDS SUMMARY | 2025-05-24 10:11 | XMS_ITS | Clinical Summary ---
Author Organization [facility] Address [address] [place] [address] Care Team Providers Care Cinder Pit Crane Operator Name Role Phone Ngoc Fung MD [...] total) by mouth once a day. 4 Active senna (SENOKOT) 8.6 mg tablet Take [...] Garduno. I have send a message to antique finisher to cancer the colonoscopy with Dr. Beck [...] including as outpatient. - per discussion with [facility], can resume aspirin and AC instead [...] by anesthesia acute pain service. Add hydromorphone ASSEMBLER CHASSIS to current analgesic regimen -Mobilize out of [...] although he does follow with GI at [facility] and records are incomplete in our system. [...] Leukocytosis 07/20/2023 02/18/2024 Elevated bilirubin 07/20/2023 3 Family History Medical History Relation Name Comments [...] drink = 0.6 oz pur e alcohol) [facility] Utilities Answer Date Recorded In the [...] 72 11/22/2024 10:17 AM EDT Temperature 36.8 C (98.2 F) 11/22/2024 10:17 AM EDT Respiratory Rate 16 11/22/2024 10:17 AM EDT [...] Info) Description 11/28/2025 10:15 AM EDT Appointment [facility] ACC Vascular Lab [address] [place] [address] Dayo Abdul MD [address] [place] [address] 11/28/2025 11:20 AM EDT Follow-Up [facility] Building Vascular Surgery [address] [place], [place] [phone] Flake Cutter Operator: Dayo Wynn MD [address] [place], [place] [phone] Health Maintenance Due Date Last Done Comments Cologuard 1975 FOBT / Fit Test 1975 HIV Screening 1975 Hepatitis C Screening 1975 Sigmoidoscopy 1975 Hepatitis B Vaccines (1 of 3 - 19+ 3-dose series) 1994 Alcohol/Substance Use Screening 09/15/2024 Depression Screening and Follow-Up 09/15/2024 Social Drivers of Health [place] ual Screening 09/15/2024 Pneumococcal Vaccine: 50+ Ye ars (1 of 1 - PCV) 2025 Zoster Vaccines (1 of 2) 2025 COVID-19 Vaccine (1 - 2023-2 5 season) 2025 Influenza Vaccine (#1) 2025 DTaP,Tdap,and Td Vaccines (2 - Td or Tdap) 11/30/2031 11/29/2021 Colon Cancer Screening 08/15/2033 Colonoscopy 08/15/2033 08/15/2023, 09/2022, 08/15/2023 RSV Vaccine (60+ years old a nd patients) (1 - 1-dose 75+ series) 2050 Abdominal Aortic Aneurysm (A AA) Screening Completed 11/22/2024, 06/14/2024, 03/08/2024, Additional history exists Medical Devices Implanted Type Area Ticket Broker Device Identifier Shelf Expiration Date Model / Serial / Lot Graft Vascular Hemashield 8mm X 60cm - [id number] - [id number] Implanted:Qty: 1 on 05/07/2024 by Dayo Abdul MD at [facility] Graft N/A: Aorta [employer] [facility] 11/22/2027 [id number] / [id number] / System Closure And Repair Suture-Mediated Perclose Prostyle - [id number] - [id number] Implanted:Qty: 1 on 10/31/2022 by Dayo Abdul MD at [facility] Implant Right: Groin [employer] [id number] 07/15/2024 [id number] / [id number] / [id number] System Closure And Repair Suture-Mediated Perclose Prostyle - [id number] - [id number] Implanted:Qty: 1 on 10/31/2022 by Dayo Abdul MD at [facility] Implant Right: Groin [employer] [id number] 07/15/2024 [id number] / [id number] / [id number] Device Closure Vascular Plug 6fr Angio-Seal Vip - S0 - [id number] Implanted:Qty: 1 on 02/13/2023 by Dayo Abdul MD at [facility] Implant Right: Groin [employer] [id number] 10/15/2023 [id number] / [id number] / [id number] System Closure And Repair Suture-Mediated Perclose Prostyle - [id number] Implanted:Qty: 2 on 07/20/2023 by Santos Willis MD at [facility] Implant [employer] 03/14/2025 [id number] / [id number] System Closure And Repair Suture-Mediated Perclose Prostyle - [id number] Implanted:Qty: 3 on 02/14/2024 by Santos Willis MD at [facility] Implant Right: Groin [employer] 10/15/2025 [id number] / / [id number] System Stent Vascular Self Expanding Over The Wire Sterile Innova [id number] - S0 - [id number] Implanted:Qty: 1 on 10/31/2022 by Dayo Abdul MD at [facility] Stent N/A: Abdomen [employer] [id number] 12/06/2026 [id number] / 0 / [id number] Stent Icast Covered [id number] - [id number] - [id number] Implanted:Qty: 1 on 10/31/2022 by Dayo Abdul MD at [facility] Stent N/A: Abdomen [employer] [facility] [id number] 07/18/2025 [id number] / [id number] / Stent Icast Covered 7mm X 22mm X 120cm - [id number] - [id number] Implanted:Qty: 1 on 07/20/2023 by Santos Willis MD at [facility] Stent [employer] [facility] 05/30/2026 [id number] / [id number] / Description:Implanted in SMA Graft Stent Vbx Balloon Expandable Endoprosthesis Reduced Profile [id number] 11mm Max Post-Dilation With Heparin Catheter [id number] [place] Viabahn - [id number] - [id number] Implanted:Qty: 1 on 02/14/2024 by Santos Willis MD at [facility] Stent N/A: Arterial W L GORE 08/14/2026 [id number] / [id number] / Description:SMA Procedures * Due to [place] law, this organization might not be sharing negative HIV tests. Procedure Name Priority Date/Time Associated Diagnosis Comments CT ANGIOGRAM ABDOMEN PELVIS W CONTRAST Routine 11/22/2024 10:02 AM EDT Chronic mesenteric ischemia COLONOSCOPY 08/15/2023 from Last 3 Months or Most Recently Relevant to Health Maintenance Results * Due to [place] law, this organization might not be sharing [...] section, it is an incomplete radiology report. Please contact the interpreting radiologist or applicable radiology division as soon as possible to obtain the completed interpretation. Workstation ID: [id number] Up-to-date CT equipment and radiation dose reduction [...] Use of iterative reconstruction technique. COMPARISON: 06/14/2024. FINDINGS: LOWER THORAX: The [...] AND SOFT TISSUES: Unremarkable. Resulting Agency Comment [id number] Procedure Note Tam Horne MD - 11/22/2024 [...] possible to obtain thecompleted interpretation. Workstation ID: [id number] Up-to-date CT equipment and radiation dose reduction techniques wereemployed. CTDIvol: 1.2 - 10.4 mGy. DLP: 992 mGy-cm. us Dayo Abdul MD IMG CT PROCEDURES Final Resul t * COLONOSCOPY (08/15/2023) Narrative Procedure Note Anthony Thomas MD PhD - 08/15/2023 3:15 PM EST [facility] Gastroenterology Patient Name: Seth Hui Procedure Date: 08/15/2023 3:15 PM Date of : 1975 Admit Type: Inpatient Age: 48 Room: [place] [address] Gender: Male Note Status: Finalized Attending MD: [...] the physician, the nurse, theanesthetist and the cutter grind tool technician in the pre-procedure area in the [...] or Most Recently Relevant to Health Maintenance Advance Directives Documents on File Type Date Recorded Patient Internal Sales Engineer Expl anation Health Care Proxy 07/24/2023 2:11 [...] Zeng Spouse Health Care Agent Care Teams Cinder Pit Crane Operator Relationship Specialty Start Date End Date Ngoc Fung MD [address] [place] [address] PCP - General Internal Medicine 09/19/22
--- OUTSIDE RECORDS SUMMARY | 2025-05-24 10:11 | XMS_ITS | Encounter Summary ---
Author Organization [facility] Address [address] [place] [address] Care Team Providers Care Home Demonstrator Name Role Phone Ngoc Fung MD Primary Care Provider Encounter Details Date Type Department Care Team (Late st Contact Info) Description 10/31/2022 Orders Only [facility] [address] [place] [address] Selam Hinojosa, UNHAIRING INSPECTOR [address] [place] [address] Claudication of left lower extremity (Primary Dx) [...] Info) Description 11/28/2025 10:15 AM EDT Appointment [facility] ACC Vascular Lab [address] [place] [address] Dayo Abdul MD [address] [place] [address] 11/28/2025 11:20 AM EDT Follow-Up [facility] Building Vascular Surgery [address] [place] [address] Deflash And Wash Operator: Dayo Wynn MD [address] [place] [address] documented as of this encounter Results * Due to [place] state law, this organization might not be [...] Vascular Ultrasound Narrative 11/12/2022 5:32 PM EST Ankle/brachial index and normal Doppler waveforms indicated no evidence of arterial insufficiency at rest on the right. Ankle/brachial index and normal Doppler waveforms indicated no evidence of arterial insufficiency at rest on the left. WAYNE Right Lower Extremity: Doppler waveform: normal Severity of Arterial Insufficiency by WAYNE: normal Left Lower Extremity: Doppler waveform: normal Severity of Arterial Insufficiency by WAYNE: normal Tech Comments C/o of claudication in calves bilaterally us Selam Hinojosa UNHAIRING INSPECTOR CV VASCULAR PROCEDURES Fin al Result documented in this encounter Visit Diagnoses Diagnosis Claudication of left lower extremity (HCC)- Primary Claudication of left lower extremity (HCC) documented in this encounter Care Teams Home Demonstrator Relationship Specialty Start Date End Date Ngoc Fung MD [address] [place] [address] PCP - General Internal Medicine 09/19/22 documented as of this encounter
--- OUTSIDE RECORDS SUMMARY | 2025-05-24 10:11 | XMS_ITS | Encounter Summary ---
Author Organization [facility] Address [address] [place] [address] Care Team Providers Care Crucible Furnace Tender Name Role Phone Ngoc Fung MD Primary Care Provider Encounter Details Date Type Department Care Team (Late st Contact Info) Description 11/07/2022 Orders Only [address] [address] Selam Hinojosa, PUMP REBUILDER [address] [place] [address] Social History Tobacco Use Types Packs/Day Years [...] Info) Description 11/28/2025 10:15 AM EDT Appointment [facility] ACC Vascular Lab [address] [place] [address] Dayo Abdul MD [address] [place] [address] 11/28/2025 11:20 AM EDT Follow-Up [facility] Building Vascular Surgery [address] [place] [address] Submarine Operator: Dayo Wynn MD [address] [place] [phone] documented as of this encounter Visit Diagnoses Not on filedocumented in this encounter Care Teams Crucible Furnace Tender Relationship Specialty Start Date End Date Ngoc Fung MD [address] [place] [address] PCP - General Internal Medicine 09/19/22 documented as of this encounter
== END ==
LOC: HO.CARD 08:56
PROVIDERS: PCP Internal Medicine
DX: R07.9 Chest pain, unspecified (principal)
CPT/HCPCS: 78452; 93017; A9500

== ENCOUNTER → 2025-05-24 08:59 | Outpatient (BNV) | payer MEDICARE, MEDICAID, SELFPAY | PROVIDERS: PCP Internal Medicine | DX: R06.02 Shortness of breath (principal) | CPT/HCPCS: 78452; 93016; 93018 ==

== ENCOUNTER 2025-06-03 14:36 | Outpatient (AMB) | payer MEDICARE, MEDICAID, SELFPAY ==
--- OUTSIDE RECORDS SUMMARY | 2025-06-03 14:43 | XMS_ITS | Clinical Summary ---
Author Organization [facility] Address [address] [place] [address] Care Team Providers Care Tumbler Plater Name Role Phone Ngoc Fung MD Primary [...] Gard[place]. I have send a message to recovery room rn to cancer the colonoscopy with Dr. Beck [...] including as outpatient. - per [facility] with [facility], can resume aspirin and AC instead [...] by anesthesia acute pain service. Add hydromorphone CITY TREASURER to current analgesic regimen -Mobilize out of [...] although he does follow with GI at [place] and records are incomplete in our system. [...] alcohol) [facility] Utilities Answer Date Recorded In the past [...] Info) Description 11/28/2025 10:15 AM EDT Appointment [facility] ACC Vascular Lab [address] [place] [address] Dayo Abdul MD [address] [place] [address] 11/28/2025 11:20 AM EDT Follow-Up [facility] Building Vascular Surgery [address] [place], [place] [id number] Oil Recovery Unit Operator: Dayo Wynn MD [address] [place], [place] [id number] Health Maintenance Due Date Last Done Comments [...] history exists Medical Devices Implanted Type Area Hotel Operations Manager Device Identifier Shelf Expiration Date Model / Serial / Lot Graft Vascular Hemashield 8mm X 60cm - [id number] - [id number] Implanted:Qty: 1 on 05/07/2024 by Dayo Abdul MD at [facility] Graft N/A: Aorta [employer] [facility] 11/22/2027 [id number] / [id number] / System Closure And Repair Suture-Mediated Perclose Prostyle - [id number] - [id number] Implanted:Qty: 1 on 10/31/2022 by Dayo Abdul MD at [facility] Implant Right: Groin [employer] [id number] 07/15/2024 09140-76 / [id number] / [id number] System Closure And Repair Suture-Mediated Perclose Prostyle - [id number] - [id number] Implanted:Qty: 1 on 10/31/2022 by Dayo Abdul MD at [facility] Implant Right: Groin [employer] [id number] 07/15/2024 68406-56 / [id number] / [id number] Device Closure Vascular Plug 6fr Angio-Seal Vip - S0 - [id number] Implanted:Qty: 1 on 02/13/2023 by Dayo Abdul MD at [facility] Implant Right: Groin [employer] [id number] 10/15/2023 [id number] / 0 / [id number] System Closure And Repair Suture-Mediated Perclose Prostyle - [id number] Implanted:Qty: 2 on 07/20/2023 by Santos Willis MD at [facility] Implant [employer] 03/14/2025 25161-9 3 / [id number] System Closure And Repair Suture-Mediated Perclose Prostyle - [id number] Implanted:Qty: 3 on 02/14/2024 by Santos Willis MD at [facility] Implant Right: Groin [employer] 10/15/2025 55437-27 / / [id number] System Stent Vascular Self Expanding Over The Wire Sterile Innova [id number] - S0 - [id number] Implanted:Qty: 1 on 10/31/2022 by Dayo Abdul MD at [facility] Stent N/A: Abdomen [employer] [id number] 12/06/2026 [id number] / 0 / [id number] Stent Icast Covered [id number] - [id number] - [id number] Implanted:Qty: 1 on 10/31/2022 by Dayo Abdul MD at [facility] Stent N/A: Abdomen [employer] [facility] [id number] 07/18/2025 [id number] / [id number] / Stent Icast Covered 7mm X 22mm X 120cm - [id number] - [id number] Implanted:Qty: 1 on 07/20/2023 by Santos Willis MD at [facility] Stent [employer] [facility] 05/30/2026 [id number] / [id number] / Description:Implanted in SMA Graft Stent Vbx Balloon Expandable Endoprosthesis Reduced Profile [id number] 11mm Max Post-Dilation With Heparin Catheter [id number] [place] Viabahn - [id number] - [id number] Implanted:Qty: 1 on 02/14/2024 by Santos Willis MD at [facility] Stent N/A: Arterial W L GORE 08/14/2026 [id number] / [id number] / Description:SMA Procedures * Due to [place] [employer] law, this organization might not be sharing negative HIV tests. Procedure Name Priority Date/Time Associated Diagnosis Comments CT ANGIOGRAM ABDOMEN PELVIS W CONTRAST Routine 11/22/2024 10:02 AM EDT Chronic mesenteric ischemia COLONOSCOPY 08/15/2023 from Last 3 Months or Most Recently Relevant to Health Maintenance Results * Due to [place] [employer] law, this organization might not be sharing [...] to obtain the completed interpretation. Workstation ID: [id number] Up-to-date CT equipment and radiation dose reduction [...] AND SOFT TISSUES: Unremarkable. Resulting Agency Comment [id number] Procedure Note Tam Horne MD - 11/22/2024 [...] possible to obtain thecompleted interpretation. Workstation ID: [id number] Up-to-date CT equipment and radiation dose reduction techniques wereemployed. CTDIvol: 1.2 - 10.4 mGy. DLP: 992 mGy-cm. us Dayo Abdul MD IMG CT PROCEDURES Final Resul t * COLONOSCOPY (08/15/2023) Narrative Procedure Note Anthony Thomas MD PhD - 08/15/2023 3:15 PM EST [facility] Gastroenterology Patient Name: Seth Hui Procedure Date: 08/15/2023 3:15 PM Date of : 1975 Admit Type: Inpatient Age: 48 Room: [place] [address] Gender: Male Note Status: Finalized Attending MD: [...] the physician, the nurse, theanesthetist and the environmental engineering technician in the pre-procedure area in the [...] Documents on File Type Date Recorded Patient Technical Support Agent Expl anation Health Care Proxy 07/24/2023 2:11 [...] Zeng Spouse Health Care Agent Care Teams Tumbler Plater Relationship Specialty Start Date End Date Ngoc Fung MD [address] [place] [address] PCP - General Internal Medicine 09/19/22
--- OUTSIDE RECORDS SUMMARY | 2025-06-03 14:43 | XMS_ITS | Encounter Summary ---
Author Organization [facility] Address [address] [place] [address] Care Team Providers Care Hydroelectric Station Operator Name Role Phone Ngoc Fung MD Primary Care Provider Reason for Visit * Reason Comments Med Change Request Encounter Details Date Type Department Care Team (Late st Contact Info) Description 09/11/2023 Refill [facility] [address] [place] [address] Gina Wyatt, DO [address] [place] [address] Social History Tobacco Use Types Packs/Day Years [...] Info) Description 11/28/2025 10:15 AM EDT Appointment [facility] ACC Vascular Lab [address] [place] [address] Dayo Abdul MD [address] [place] [address] 11/28/2025 11:20 AM EDT Follow-Up [facility] Vascular Surgery [address] [place] [address] Building Repair Maintenance Supervisor: Dayo Wynn MD [address] [place] [address] [phone] documented as of this encounter Visit Diagnoses Not on filedocumented in this encounter Care Teams Hydroelectric Station Operator Relationship Specialty Start Date End Date Ngoc Fung MD [address] [place] [address] PCP - General Internal Medicine 09/19/22 documented as of this encounter
--- OUTSIDE RECORDS SUMMARY | 2025-06-03 14:43 | XMS_ITS | Clinical Summary ---
Author Organization [facility] Address [address] [place] [address] Phone Care Team Providers Care Graphic Artist Name Role Phone Pcp, Unknown Primary Care [...] file Medical Devices Not on file Insurance [facility] H[facility] Member Subscriber Plan / Payer (Ef fective 2018-Present) Name:Seth Whelan Relation to Subscriber:Self Name:Seth Whelan Payer ID:Not on file Type:HMO Address: [place] [id number] [facility] ACO [facility] HMO [facility] A[facility] Member Subscriber Plan / Payer (Ef fective 2018-Present) Name:Seth Whelan Relation to Subscriber:Self Name:Seth Whelan Payer ID:Not on file Type:O Address: [address] ACO [facility] HMO ACO [facility] Member Subscriber Plan / Payer (Ef fective 2018-Present) Name:Seth Whelan Relation to Subscriber:Self Name:Seth Whelan Payer ID:Not on file Type:O [address]: [address] [facility] A[facility] Member Subscriber Plan / Payer (Ef fective 2018-Present) Name:Seth Whelan Relation to Subscriber:Self Name:Seth Whelan Payer ID:Not on file Type:O Address: [address] [facility] Member Subscriber Plan / Payer (Ef fective 2018-Present) Name:Seth Whelan Relation to Subscriber:Self Name:Seth Whelan Payer ID:Not on file Type:HMO Address: [address] [place] [address] [facility] HMO [place] [id number] Care Teams Graphic Artist Relationship Specialty Start Date End Date Pcp, Unknown PCP - General 06/11/22 Additional Source Comments The information contained in this document represents components of the legal health record. It is not the complete legal health record.[facility]
--- OUTSIDE RECORDS SUMMARY | 2025-06-03 14:43 | XMS_ITS | Encounter Summary ---
Author Organization [facility] Address [address] [place] [address] Care Team Providers Care Windows Migration Technician Name Role Phone Ngoc Fung MD Primary Care Provider Encounter Details Date Type Department Care Team (Late st Contact Info) Description 11/07/2022 Orders Only [address] [address] Selam Hinojosa, HEALTH PROMOTION MANAGER [address] [place] [address] Social History Tobacco Use Types Packs/Day Years [...] Info) Description 11/28/2025 10:15 AM EDT Appointment [facility] ACC Vascular Lab [address] [place] [address] Dayo Abdul MD [address] [place] [address] 11/28/2025 11:20 AM EDT Follow-Up [facility] Building Vascular Surgery [address] [place] [address] Power Plant Inspector: Dayo Wynn MD [address] [place] [phone] documented as of this encounter Visit Diagnoses Not on filedocumented in this encounter Care Teams Windows Migration Technician Relationship Specialty Start Date End Date Ngoc Fung MD [address] [place] [address] PCP - General Internal Medicine 09/19/22 documented as of this encounter
--- OUTSIDE RECORDS SUMMARY | 2025-06-03 14:43 | XMS_ITS | Encounter Summary ---
Author Organization [facility] Address [address] [place] [address] Care Team Providers Care Balance Weigher Name Role Phone Ngoc Fung MD Primary Care Provider Reason for Visit * Reason Comments Med Change Request Encounter Details Date Type Department Care Team (Late st Contact Info) Description 08/12/2023 Refill [facility] [address] [place] [address] Len Davis MD [address] [facility] [place] [address] Social History Tobacco Use Types Packs/Day Years [...] Info) Description 11/28/2025 10:15 AM EDT Appointment [facility] ACC Vascular Lab [address] [place] [address] Dayo Abdul MD [address] [place] [address] 11/28/2025 11:20 AM EDT Follow-Up [facility] Vascular Surgery [address] [place] [phone] Head Of Cytogenetics: Dayo Wynn MD [address] [place] [phone] documented as of this encounter Visit Diagnoses Not on filedocumented in this encounter Care Teams Balance Weigher Relationship Specialty Start Date End Date Ngoc Fung MD [address] [place] [address] PCP - General Internal Medicine 09/19/22 documented as of this encounter
--- OUTSIDE RECORDS SUMMARY | 2025-06-03 14:43 | XMS_ITS | Encounter Summary ---
Author Organization [facility] Address [address] [place] [address] Care Team Providers Care Maintenance Foreman Name Role Phone Ngoc Fung MD Primary Care Provider Encounter Details Date Type Department Care Team (Late st Contact Info) Description 10/31/2022 Orders Only [facility] [address] [place] [address] Selam Hinojosa, WINDOW GLAZIER HELPER [address] [place] [address] Claudication of left lower extremity (Primary Dx) [...] Info) Description 11/28/2025 10:15 AM EDT Appointment [facility] ACC Vascular Lab [address] [place] [address] Dayo Abdul MD [address] [place] [address] 11/28/2025 11:20 AM EDT Follow-Up [facility] Building Vascular Surgery [address] [place] [address] Soil Analyst: Dayo Wynn MD [address] [place] [phone] documented as of this encounter Results * [...] claudication in calves bilaterally us Selam Hinojosa WINDOW GLAZIER HELPER CV VASCULAR PROCEDURES Fin al Result documented in this encounter Visit Diagnoses Diagnosis Claudication of left lower extremity (HCC)- Primary Claudication of left lower extremity (HCC) documented in this encounter Care Teams Maintenance Foreman Relationship Specialty Start Date End Date Ngoc Fung MD [address] [place] [address] PCP - General Internal Medicine 09/19/22 documented as of this encounter
[2025-06-03 14:45] VITALS: BP 124/64; PULSE 71; BMI 21.2
--- NOTE | 2025-06-03 14:45 | MHC.OFFVIS ---
Vital Signs 06/03/25 14:45 Height 6 ft Weight 156 lb 1.396 oz BMI 21.2 BP 124/64 Blood Pressure Location Lt brachial Position Sitting Pulse 71 Pulse Source Pulse Oximeter Intake Visit Reasons: f/up-echo/stress Morale Officer Required: No Accompanied by: Self / Same As Patient Allergies No Known Allergies Allergy (Verified 04/21/25 13:22) Medication List - Last Reconciled 06/03/25 by Angel Flynn NP amoxicillin-pot clavulanate 875-125 mg 1 tab PO Q12H 5 days aspirin 81 mg PO DAILY ferrous sulfate 325 mg PO DAILY 90 days lansoprazole 30 mg PO DAILY HPI Comments Details: This is a 50-year-old male patient coming in for a follow-up visit. Patient with a history of hyperlipidemia, DVT and prior mesenteric ischemia with SMA stenting and ileocecectomy with subsequent SMA thrombectomy and relining, with celiac artery stenting at [facility] in February of 2024, and status post aorta SMA bypass on April [address] Oshea at [facility]. Patient is currently on baby aspirin. Patient was previously seen in the office for chest discomfort and shortness of breath for which patient underwent a stress test. Echo at this time is pending. Today he is here to review the results of this. Patient states that he is finally feeling like he is returning to his baseline and has not had anymore of the chest discomfort or shortness of breath. Patient is otherwise reporting compliance with the medications and denies any exertional chest discomfort, shortness of breath, palpitations, dizziness, orthopnea, PND, leg edema, presyncope or syncope. [facility] Medical History Cholelithiasis AVM (arteriovenous malformation) of duodenum, acquired with hemorrhage Vitamin D deficiency Mesenteric artery thrombosis CAD (coronary artery disease) Hyperlipidemia Superior mesenteric artery stenosis Celiac artery stenosis Vaccine refused by patient (~09/05/23) Cigar smoker unmotivated to quit Chronic vascular insufficiency of intestine Impaired fasting glucose Diarrhea Granular cell tumor Chronic GERD Surgical History H/O heart artery stent History of esophagogastroduodenoscopy (EGD) Hx of colectomy Hx of appendectomy Hx of colonoscopy Family History Maternal Aunt No problems noted. Maternal Aunt No problems noted. Social History Household Members: Spouse Housing: Apartment Do you presently have visiting nurse or other home services: No Alcohol intake: former Patient Tobacco Use Status: Former Tobacco user Tobacco use type: Cigar Years Smoked: 3 e-Cigarette/Vaping Use: Never Used Substance Use Type: Marijuana Advance Directives Date on File: 05/19/24 service: No Current occupational status: disabled Current occupational exposures/hazards: No Cognitive needs: No Hearing needs: No Vision needs: No Review of Systems Const Denies daytime sleepiness, Denies difficulty sleeping, Denies snoring, Denies stops breathing during sleep and Denies weakness Card Denies chest pain, Denies rapid heart rate, Denies irregular heart rhythm, Denies claudication, Denies leg edema, Denies lightheadedness, Denies palpitations, Denies dyspnea, Denies dyspnea on exertion, Denies orthopnea, Denies paroxysmal nocturnal dyspnea and Denies slow heart rate Resp Denies cough, Denies dyspnea, Denies dyspnea on exertion and Denies snoring GI Reports no additional complaints, Denies hematochezia, Denies change in stool character and Denies dyspepsia Musc Denies abnormal gait, Denies muscle weakness and Denies numbness Neuro Denies abnormal gait, Denies numbness and Denies weakness Endo Denies palpitations Physical Exam Vital Signs: Last Vital Signs Pulse 71 06/03/25 14:45 BP 124/64 06/03/25 14:45 BMI result Body Mass Index 21.2 Const General: cooperative, comfortable and no acute distress Orientation/consciousness: patient oriented x3 HEENT Head: Yes normal to inspection Neck Neck: Yes normal visual inspection, Yes trachea midline and Yes supple Chest Chest palpation & inspection: normal inspection of the chest Resp Effort & Inspection: normal respiratory effort Auscultation: clear to auscultation bilaterally, no crackles, no rales, no rhonchi and no wheezes Cardio Jugular venous distension: no JVD Palpation: normal PMI Rate: regular rate Rhythm: regular rhythm Heart sounds: S1 normal heart sound present, S2 normal heart sound present, no click, no gallops, no murmurs and no rubs Peripheral pulses: Peripheral pulses 2+ throughout GI Inspection: Yes normal to inspection Palpation (GI): Soft to palpation Auscultation: normal bowel sounds Skin General skin exam: no rashes or lesions noted Neuro General: patient oriented x3 Extrem General: Yes normal to inspection, No no pedal edema and No calf tenderness Psych Appearance: grossly normal Mental Status: mental status grossly normal Speech and movement: Normal speech and movement present Assessment & Plan Assessment & Plan (1) Chest pain: Code(s): R07.9 - Chest pain, unspecified Category: Medical Plan: 05/24/2025-patient underwent myocardial perfusion study that showed mild intensity small size ischemia in the distal septum and apex. Echo at this time is pending. Given above finding and longstanding hyperlipidemia not on any medications, we will proceed with a coronary CTA to look for coronary artery disease and extent of ischemic changes. We will start patient on atorvastatin with a goal of LDL less than 70. Plan to repeat lipid panel and liver function in 3 months. Continue lifetime baby aspirin therapy. (2) Abnormal myocardial perfusion study: Code(s): R94.39 - Abnormal result of other cardiovascular function study Category: Medical Plan: As above. (3) Mesenteric artery thrombosis: Code(s): K55.069 - Acute infarction of intestine, part and extent unspecified Category: Medical Plan: History of mesenteric stenting now status post aorto-SMA bypass graft in April of 2024, on aspirin. Followed by [facility]. (4) Hyperlipidemia: Code(s): E78.5 - Hyperlipidemia, unspecified Category: Medical Plan: As above. Advised heart healthy diet, regular exercise, med compliance, complete smoking cessation, and aggressive management of vascular risk factors. We will follow up after completion of the test. In the interim, patient will call the office with any concerns or change in symptoms. Advised seeking ER care in case of exertional chest pain not resolved with rest. This note was generated using voice recognition software. While every effort has been made to ensure accuracy and proper fund manager, there may be occasional errors that could affect the content or meaning of the described symptoms. Orders: Orders Lipid Panel 3 Months R07.9 - Chest pain, unspecified, R94.39 - Abnormal result of other cardiovascular function study Basic Metabolic Panel Today R07.9 - Chest pain, unspecified CT Cardiac Coronary Angio Today R07.9 - Chest pain, unspecified, R94.39 - Abnormal result of other cardiovascular function study Liver Panel 3 Months R07.9 - Chest pain, unspecified, R94.39 - Abnormal result of other cardiovascular function study Medications: New atorvastatin (Lipitor) 10 mg PO DAILY 90 tabs 1RF Coding Level of Care Code Est Pt Level 4 (79057) Complex EM visit Add On G2211 Diagnoses Chest pain R07.9 Abnormal myocardial perfusion study R94.39 Mesenteric artery thrombosis K55.069 Hyperlipidemia E78.5 Time Spent (min) 33 Comment Time spent in reviewing the chart, test results, assessment, counseling and documentation.
== END 2025-06-03 15:13 | disposition home or self-care (01) ==
LOC: HO.HCS 14:37
PROVIDERS: PCP Internal Medicine
DX: R07.9 Chest pain, unspecified (principal); R94.39 Abnormal result of other cardiovascular function study; K55.069 Acute infarction of intestine, part and extent unspecified; E78.5 Hyperlipidemia, unspecified
CPT/HCPCS: 99214; G2211

== ENCOUNTER → 2025-06-03 14:36 | Outpatient (BNVA) | payer MEDICARE, MEDICAID, SELFPAY | PROVIDERS: PCP Internal Medicine | DX: R07.9 Chest pain, unspecified (principal); R94.39 Abnormal result of other cardiovascular function study; K55.069 Acute infarction of intestine, part and extent unspecified; E78.5 Hyperlipidemia, unspecified | CPT/HCPCS: 99212 ==

== ENCOUNTER 2025-06-13 10:30 | Outpatient (AMB) | payer MEDICARE, MEDICAID, SELFPAY ==
--- NOTE | 2025-06-13 11:09 | MHC.OFFVIS ---
Vital Signs 06/13/25 11:10 Height 6 ft Weight 152 lb 1.903 oz BMI 20.6 BP 117/56 L Blood Pressure Location Lt brachial Position Sitting Pulse 79 Intake Visit Reasons: epigastric pain Intake Note: Seth presents in the office as a follow up for his abdominal pains. CC: states he has been feeling okay! Web Marketing Coordinator Required: No Allergies No Known Allergies Allergy (Verified 04/21/25 13:22) HPI HPI epigastric pain: Details: 50-year-old male with past medical history significant for 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 and recent celiac artery stenting ([email or web address] vascular) 02/2024 on coumadin with lovenox bridge/asa/plavix, history of hyperlipidemia, iron deficiency anemia, history of peptic ulcer disease, depression, internal hemorrhoids and smoking history who I am seeing for f/u RECAP: He had assessment for recurrent anemia. Patient had noted melenic stools for several days and HGB had been trending down -HGB today was around 5-6 g/dl and he felt weak and fatigued. He denies fevers, chills, nausea, vomiting, diarrhea, BRBPR, palpitations, sob, chest pain but does have lightheadedness. He has been compliant with octreotide a home. He spoke w/ his vasc surgeon at [facility] and talk of possible bypass graft/ He had EGD 03/24/24 with area of bleeding noted in distal duodenum treated with hemospray. LAST CTA 03/22/24: patent SMA stent, no active bleeding source seen He went to ED x 2 02/06 with epigastric pain, -imaging with cholelithiasis, and chronci vascular changes with stent I referred him to cards for chest pain, and he is undergoing evaluation INTERIM: no further chest pain he has no issues with swallowing he is taking statin and aspirin smoking once a day, cigar still taking lansoprazole and carafate EXAM: GENERAL: The patient is well developed and nontoxic. VITAL SIGNS:see workflow HEENT: Nonicteric sclerae, PERRLA, EOMI. Oropharynx clear. Moist mucous membranes. Conjunctivae appear well perfused. No thyroid mass. CHEST: Chest wall is nontender. HEART: Regular rate and rhythm without murmurs. LUNGS: Clear to auscultation bilaterally. ABDOMEN: Soft, positive bowel sounds, nontender, no organomegaly.no flank tenderness--scar in mid line SKIN: No rash, no excessive bruising, petechiae, or purpura. NEUROLOGIC: Cranial nerves II-XII intact without motor/sensory deficit. 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 Maternal Aunt No problems noted. Social History Household Members: Spouse Housing: Apartment Do you presently have visiting nurse or other home services: No Alcohol intake: former Patient Tobacco Use Status: Former Tobacco user Tobacco use type: Cigar Years Smoked: 3 e-Cigarette/Vaping Use: Never Used Substance Use Type: Marijuana Advance Directives Date on File: 05/19/24 service: No Current occupational status: disabled Current occupational exposures/hazards: No Cognitive needs: No Hearing needs: No Vision needs: No Physical Exam Vital Signs: Last Vital Signs Pulse 79 06/13/25 11:10 BP 117/56 L 06/13/25 11:10 BMI result Body Mass Index 20.6 Assessment & Plan Assessment & Plan (1) Chest pain: Code(s): R07.9 - Chest pain, unspecified Category: Medical Plan: as above Coding Level of Care Code Est Pt Level 3 (17924) Diagnoses Chest pain R07.9
[2025-06-13 11:10] VITALS: BP 117/56; PULSE 79; BMI 20.6
--- OUTSIDE RECORDS SUMMARY | 2025-06-13 11:45 | XMS_ITS | Clinical Summary ---
Author Organization [facility] Address [address] [place] [address] Care Team Providers Care General Operations Agent Name Role Phone Ngoc Fung MD Primary [...] Garduno. I have send a message to rehabilitation aide/scheduler to cancer the colonoscopy with Dr. Beck [...] including as outpatient. - per discussion with [facility], can resume aspirin and AC instead [...] by anesthesia acute pain service. Add hydromorphone POLICE RECORDS CLERK to current analgesic regimen -Mobilize out of [...] although he does follow with GI at [place] and records are incomplete in our system. [...] 0.6 oz pur e alcohol) [facility] Utilities Answer Date Recorded In the past [...] Info) Description 11/28/2025 10:15 AM EDT Appointment [facility] ACC Vascular Lab [address] [place] [address] Dayo Abdul MD [address] [place] [address] 11/28/2025 11:20 AM EDT Follow-Up [facility] Building Vascular Surgery [address] [place], [place] [phone] Assembly Line Leader: Dayo Wynn MD [address] [place], [place] [phone] Health Maintenance Due Date Last Done Comments [...] history exists Medical Devices Implanted Type Area Arborist Climber Device Identifier Shelf Expiration Date Model / Serial / Lot Graft Vascular Hemashield 8mm X 60cm - [id number] - [id number] Implanted:Qty: 1 on 05/07/2024 by Dayo Abdul MD at [facility] Graft N/A: Aorta [facility] 11/22/2027 [id number] / [id number] / System Closure And Repair Suture-Mediated Perclose Prostyle - [id number] - [id number] Implanted:Qty: 1 on 10/31/2022 by Dayo Abdul MD at [facility] Implant Right: Groin [employer] [id number] 07/15/2024 [id number] / [id number] / [id number] System Closure And Repair Suture-Mediated Perclose Prostyle - [id number] - [id number] Implanted:Qty: 1 on 10/31/2022 by Dayo Abdul MD at [facility] Implant Right: Groin [employer] [id number] 07/15/2024 20263-65 / [id number] / [id number] Device Closure Vascular Plug 6fr Angio-Seal Vip - S0 - [id number] Implanted:Qty: 1 on 02/13/2023 by Dayo Abdul MD at [facility] Implant Right: Groin [employer] [id number] 10/15/2023 [id number] / 0 / [id number] System Closure And Repair Suture-Mediated Perclose Prostyle - [id number] Implanted:Qty: 2 on 07/20/2023 by Santos Willis MD at [facility] Implant [employer] 03/14/2025 58449-1 3 / [id number] System Closure And Repair Suture-Mediated Perclose Prostyle - [id number] Implanted:Qty: 3 on 02/14/2024 by Santos Willis MD at [facility] Implant Right: Groin [employer] 10/15/2025 52852-42 / / [id number] System Stent Vascular Self Expanding Over The Wire Sterile Innova [id number] - S0 - [id number] Implanted:Qty: 1 on 10/31/2022 by Dayo Abdul MD at [facility] Stent N/A: Abdomen [employer] [id number] 12/06/2026 [id number] / 0 / [id number] Stent Icast Covered [id number] - [id number] - [id number] Implanted:Qty: 1 on 10/31/2022 by Dayo Abdul MD at [facility] Stent N/A: Abdomen [facility] [id number] 07/18/2025 [id number] / [id number] / Stent Icast Covered 7mm X 22mm X 120cm - [id number] - [id number] Implanted:Qty: 1 on 07/20/2023 by Santos Willis MD at [facility] Stent [facility] 05/30/2026 [id number] / [id number] / Description:Implanted in SMA Graft Stent Vbx Balloon Expandable Endoprosthesis Reduced Profile [id number] 11mm Max Post-Dilation With Heparin Catheter [id number] [place] Vi[employer]ahn - [id number] - [id number] Implanted:Qty: 1 on 02/14/2024 by Santos Willis MD at [facility] Stent N/A: Arterial W L GORE 08/14/2026 [id number] / [id number] / Description:SMA Procedures * Due to [place] law, this organization might not be sharing negative HIV tests. Procedure Name Priority Date/Time Associated Diagnosis Comments CT ANGIOGRAM ABDOMEN PELVIS W CONTRAST Routine 11/22/2024 10:02 AM EDT Chronic mesenteric ischemia COLONOSCOPY 08/15/2023 from Last 3 Months or Most Recently Relevant to Health Maintenance Results * Due to [place] law, this organization might not be sharing [...] to obtain the completed interpretation. Workstation ID: [id number] Up-to-date CT equipment and radiation dose reduction [...] AND SOFT TISSUES: Unremarkable. Resulting Agency Comment [id number] Procedure Note Tam Horne MD - 11/22/2024 [...] possible to obtain thecompleted interpretation. Workstation ID: [id number] Up-to-date CT equipment and radiation dose reduction techniques wereemployed. CTDIvol: 1.2 - 10.4 mGy. DLP: 992 mGy-cm. us Dayo Abdul MD IMG CT PROCEDURES Final Resul t * COLONOSCOPY (08/15/2023) Narrative Procedure Note Anthony Thomas MD PhD - 08/15/2023 3:15 PM EST [facility] Gastroenterology Patient Name: Seth Hui Procedure Date: 08/15/2023 3:15 PM Date of : 1975 Admit Type: Inpatient Age: 48 Room: [place] [address] Gender: Male Note Status: Finalized Attending MD: [...] the physician, the nurse, theanesthetist and the tax examining technician in the pre-procedure area in the [...] Documents on File Type Date Recorded Patient Packer Inspector Expl anation Health Care Proxy 07/24/2023 2:11 [...] Zeng Spouse Health Care Agent Care Teams General Operations Agent Relationship Specialty Start Date End Date Ngoc Fung MD [address] [place] [address] PCP - General Internal Medicine 09/19/22
--- OUTSIDE RECORDS SUMMARY | 2025-06-13 11:45 | XMS_ITS | Encounter Summary ---
Author Organization [facility] Address [address] [place] [address] Care Team Providers Care Coal Or Ore Controller Name Role Phone Ngoc Fung MD Primary Care Provider Reason for Visit * Reason Comments Med Change Request Encounter Details Date Type Department Care Team (Late st Contact Info) Description 09/11/2023 Refill [facility] [address] [place] [address] Gina Wyatt, DO [address] [place] [address] Social History Tobacco Use Types Packs/Day Years [...] 10:15 AM EDT Appointment [facility] ACC Vascular Lab [address] [place] [address] Dayo Abdul MD [address] [place] [address] 11/28/2025 11:20 AM EDT Follow-Up [facility] Vascular Surgery [address] [place] [address] Semiautomatic Taper Operator: Dayo Wynn MD [address] [place] [address] [phone] documented as of this encounter Visit Diagnoses Not on filedocumented in this encounter Care Teams Coal Or Ore Controller Relationship Specialty Start Date End Date Ngoc Fung MD [address] [place] [address] PCP - General Internal Medicine 09/19/22 documented as of this encounter
--- OUTSIDE RECORDS SUMMARY | 2025-06-13 11:45 | XMS_ITS | Clinical Summary ---
Author Organization [facility] Address [address] [place] [address] Phone Care Team Providers Care Asbestos Shingle Inspector Name Role Phone Pcp, Unknown Primary Care [...] file Medical Devices Not on file Insurance [facility] H[facility] Member Subscriber Plan / Payer (Ef fective 2018-Present) Name:Seth Whelan Relation to Subscriber:Self Name:Seth Whelan Payer ID:Not on file Type:HMO Address: [place] [id number] [facility] A[facility] HMO [facility] Member Subscriber Plan / Payer (Ef fective 2018-Present) Name:Seth Whelan Relation to Subscriber:Self Name:Seth Whelan Payer ID:Not on file Type:O Address: [address] [place] [address] [facility] H[facility] Member Subscriber Plan / Payer (Ef fective 2018-Present) Name:Seth Whelan Relation to Subscriber:Self Name:Seth Whelan Payer ID:Not on file Type:O Address: [address] [facility] Member Subscriber Plan / Payer (Ef fective 2018-Present) Name:Seth Whelan Relation to Subscriber:Self Name:Seth Whelan Payer ID:Not on file Type:O Address: [address] [facility] Member Subscriber Plan / Payer (Ef fective 2018-Present) Name:Seth Whelan Relation to Subscriber:Self Name:Seth Whelan Payer ID:Not on file Type:HMO Address: [address] [place] [address] [facility] H[facility] [place] [id number] Care Teams Asbestos Shingle Inspector Relationship Specialty Start Date End Date Pcp, Unknown PCP - General 06/11/22 Additional Source Comments The information contained in this document represents components of the legal health record. It is not the complete legal health record.[facility]
--- OUTSIDE RECORDS SUMMARY | 2025-06-13 11:45 | XMS_ITS | Encounter Summary ---
Author Organization [facility] Address [address] [place] [address] Care Team Providers Care Assistant Grocery Name Role Phone Ngoc Fung MD Primary Care Provider Encounter Details Date Type Department Care Team (Late st Contact Info) Description 11/07/2022 Orders Only [address] [address] Selam Hinojosa, ROPING TENDER [address] [place] [address] Social History Tobacco Use Types Packs/Day Years [...] [facility] ACC Vascular Lab [address] [place] [address] Dayo Abdul MD [address] [place] [address] 11/28/2025 11:20 AM EDT Follow-Up [facility] Building Vascular Surgery [address] [place] [address] Brick Veneer Maker: Dayo Wynn MD [address] [place] [address] documented as of this encounter Visit Diagnoses Not on filedocumented in this encounter Care Teams Assistant Grocery Relationship Specialty Start Date End Date Ngoc Fung MD [address] [place] [address] PCP - General Internal Medicine 09/19/22 documented as of this encounter
--- OUTSIDE RECORDS SUMMARY | 2025-06-13 11:45 | XMS_ITS | Encounter Summary ---
Author Organization [facility] Address [address] [place] [address] Care Team Providers Care Computer Publisher Name Role Phone Ngoc Fung MD Primary Care Provider Reason for Visit * Reason Comments Med Change Request Encounter Details Date Type Department Care Team (Late st Contact Info) Description 08/12/2023 Refill [facility] [address] [place] [address] Len Davis MD [address] [facility] [place] [address] Social History Tobacco Use Types Packs/Day Years [...] Info) Description 11/28/2025 10:15 AM EDT Appointment [facility] ACC Vascular Lab [address] [place] [address] Dayo Abdul MD [address] [place] [address] 11/28/2025 11:20 AM EDT Follow-Up [facility] Vascular Surgery [address] [place] [address] Compliance Field Technician: Dayo Wynn MD [address] [place] [address] documented as of this encounter Visit Diagnoses Not on filedocumented in this encounter Care Teams Computer Publisher Relationship Specialty Start Date End Date Ngoc Fung MD [address] [place] [address] PCP - General Internal Medicine 09/19/22 documented as of this encounter
--- OUTSIDE RECORDS SUMMARY | 2025-06-13 11:45 | XMS_ITS | Encounter Summary ---
Author Organization [facility] Address [address] [place] [address] Care Team Providers Care Quantitative Equity Head Name Role Phone Ngoc Fung MD Primary Care Provider Encounter Details Date Type Department Care Team (Late st Contact Info) Description 10/31/2022 Orders Only [facility] [address] [place] [address] Selam Hinojosa, COLLECTION SPECIALIST [address] [place] [address] Claudication of left lower extremity (Primary Dx) [...] [facility] ACC Vascular Lab [address] [place] [address] Dayo Abdul MD [address] [place] [address] 11/28/2025 11:20 AM EDT Follow-Up [facility] Building Vascular Surgery [address] [place] [address] Barn Boss: Dayo Wynn MD [address] [place] [address] documented as of this encounter Results * Due to [place] state law, this organization might not be [...] claudication in calves bilaterally us Selam Hinojosa COLLECTION SPECIALIST CV VASCULAR PROCEDURES Fin al Result documented in this encounter Visit Diagnoses Diagnosis Claudication of left lower extremity- Primary Claudication of left lower extremity documented in this encounter Care Teams Quantitative Equity Head Relationship Specialty Start Date End Date Ngoc Fung MD [address] [place] [address] PCP - General Internal Medicine 09/19/22 documented as of this encounter
== END 2025-06-13 11:46 | disposition home or self-care (01) ==
PROVIDERS: PCP Internal Medicine; Visit Provider Internal Medicine Gastroenterology
DX: R07.9 Chest pain, unspecified (principal)
CPT/HCPCS: 99213

== ENCOUNTER → 2025-06-13 10:30 | Outpatient (BNVA) | payer MEDICARE, MEDICAID, SELFPAY | PROVIDERS: PCP Internal Medicine; Visit Provider Internal Medicine Gastroenterology | DX: R07.9 Chest pain, unspecified (principal) | CPT/HCPCS: 99212 ==

== ENCOUNTER 2025-06-15 08:32 | Outpatient (REF) | payer MEDICARE, MEDICAID, SELFPAY ==
--- NOTE | ~2025-06-15 | FL_ITS ---
EXAMINATION: XR FLUOROSCOPY BARIUM SWALLOW WITH AIR CLINICAL INFORMATION: Epigastric pain, atypical chest pain, GERD type symptoms. COMPARISON: None TECHNIQUE: Fluoroscopic air contrast barium swallow examination was performed utilizing standard techniques with thin and thick barium and effervescent granules. Numerous spot images were obtained. Several fluoroscopic image hold cine sequences were also obtained. FINDINGS: BARIUM SWALLOW: Lateral cine images of the oropharynx and hypopharynx demonstrate normal swallow mechanism with normal epiglottic inversion and soft palate elevation. No laryngeal penetration, glottic or subglottic aspiration identified. Hypopharyngeal structures appear normal without evidence of mass or diverticulum. There was no significant cricopharyngeal achalasia. Dual and single contrast images of the esophagus demonstrate normal caliber, contour, and mucosal pattern. No evidence of stricture, mass, or ulcerations identified. Esophageal peristalsis was mildly disordered. No evidence of hiatus hernia identified. No significant gastroesophageal reflux was seen during the course of the examination. Dual contrast and single contrast images of the stomach demonstrated normal contour and mucosal pattern without evidence of mass or gross ulcer. Diffuse thickening of the gastric rugal folds present. Diffuse prominence of the areae gastricae noted. Contrast freely passed into the gastric antrum and duodenal bulb without delay. A stent is incidentally noted in the region of the SMA. FLUOROSCOPY TIME: 2 minutes and 16 seconds Number of Spot Images:10 Number of cines obtained: 9 DOSE AREA PRODUCT: 2713 uGy-m2 (microgray-meter squared) FL/FL barium swallow with air IMPRESSION: 1. Mildly disordered esophageal peristalsis. No evidence of esophageal spasm. 2. No definite gastroesophageal reflux observed during the course of the exam. 3. No evidence of hiatus hernia. 4. Diffuse thickening of the gastric rugal folds with diffuse prominence of the areae gastricae, findings in keeping with gastritis. Electronically signed by: Pantera Brooks MD 06/15/2025 10:11 AM EDT
--- OUTSIDE RECORDS SUMMARY | 2025-06-15 09:02 | XMS_ITS | Clinical Summary ---
Author Organization [facility] Address [address] [place] [address] Care Team Providers Care Dormitory Counselor Name Role Phone Ngoc Fugn MD Primary Care Provider Allergies No known [...] Garduno. I have send a message to central scheduler to cancer the colonoscopy with Dr. [...] including as outpatient. - per discussion with [facility], can resume aspirin and AC instead [...] by anesthesia acute pain service. Add hydromorphone WEIGHT CONTROL LECTURER to current analgesic regimen -Mobilize out of [...] although he does follow with GI at [place] and records are incomplete in our system. [...] drink = 0.6 oz pur e alcohol) [facility] Utilities Answer Date Recorded In the [...] Info) Description 11/28/2025 10:15 AM EDT Appointment [facility] ACC Vascular Lab [address] [place] [address] Dayo Abdul MD [address] [place] [address] 11/28/2025 11:20 AM EDT Follow-Up [facility] Building Vascular Surgery [address] [place], [place] [phone] Director Of Occupational Health: Dayo Wynn MD [address] [place], [place] [phone] Health Maintenance Due Date Last Done Comments [...] history exists Medical Devices Implanted Type Area Scouring Machine Operator Device Identifier Shelf Expiration Date Model / Serial / Lot Graft Vascular Hemashield 8mm X 60cm - [id number] - [id number] Implanted:Qty: 1 on 05/07/2024 by Dayo Abdul MD at [facility] Graft N/A: Aorta [facility] 11/22/2027 [id number] / [id number] / System Closure And Repair Suture-Mediated Perclose Prostyle - [id number] - [id number] Implanted:Qty: 1 on 10/31/2022 by Dayo Abdul MD at [facility] Implant Right: Groin [employer] [id number] 07/15/2024 08812-72 / [id number] / [id number] System Closure And Repair Suture-Mediated Perclose Prostyle - [id number] - [id number] Implanted:Qty: 1 on 10/31/2022 by Dayo Abdul MD at [facility] Implant Right: Groin [employer] [id number] 07/15/2024 98134-53 / [id number] / [id number] Device Closure Vascular Plug 6fr Angio-Seal Vip - S0 - [id number] Implanted:Qty: 1 on 02/13/2023 by Dayo Abdul MD at [facility] Implant Right: Groin [employer] [id number] 10/15/2023 [id number] / 0 / [id number] System Closure And Repair Suture-Mediated Perclose Prostyle - [id number] Implanted:Qty: 2 on 07/20/2023 by Santos Willis MD at [facility] Implant [employer] 03/14/2025 56586-3 3 / [id number] System Closure And Repair Suture-Mediated Perclose Prostyle - [id number] Implanted:Qty: 3 on 02/14/2024 by Santos Willis MD at [facility] Implant Right: Groin [employer] 10/15/2025 20176-15 / / [id number] System Stent Vascular Self Expanding Over The Wire Sterile Innova [id number] - S0 - [id number] Implanted:Qty: 1 on 10/31/2022 by Dayo Abdul MD at [facility] Stent N/A: Abdomen [employer] [id number] 12/06/2026 [id number] / 0 / [id number] Stent Icast Covered [id number] - [id number] - [id number] Implanted:Qty: 1 on 10/31/2022 by Dayo Abdul MD at [facility] Stent N/A: Abdomen [facility] [id number] 07/18/2025 [id number] / [id number] / Stent Icast Covered 7mm X 22mm X 120cm - [id number] - [id number] Implanted:Qty: 1 on 07/20/2023 by Santos Willis MD at [facility] Stent [facility] 05/30/2026 [id number] / [id number] / Description:Implanted in SMA Graft Stent Vbx Balloon Expandable Endoprosthesis Reduced Profile [id number] 11mm Max Post-Dilation With Heparin Catheter [id number] [place] [employer] - [id number] - [id number] Implanted:Qty: 1 on 02/14/2024 by Santos Willis MD at [facility] Stent N/A: Arterial W L GORE 08/14/2026 [id number] 2A / [id number] / Description:SMA Procedures * Due to [place] law, this organization might not be sharing negative HIV tests. Procedure Name Priority Date/Time Associated Diagnosis Comments CT ANGIOGRAM ABDOMEN PELVIS W CONTRAST Routine 11/22/2024 10:02 AM EDT Chronic mesenteric ischemia COLONOSCOPY 08/15/2023 from Last 3 Months or Most Recently Relevant to Health Maintenance Results * Due to [place] [employer] [employer] law, this organization might not be sharing [...] to obtain the completed interpretation. Workstation ID: [id number] Up-to-date CT equipment and radiation dose reduction [...] AND SOFT TISSUES: Unremarkable. Resulting Agency Comment [id number] Procedure Note Tam Horne MD - 11/22/2024 [...] possible to obtain thecompleted interpretation. Workstation ID: [id number] Up-to-date CT equipment and radiation dose reduction techniques wereemployed. CTDIvol: 1.2 - 10.4 mGy. DLP: 992 mGy-cm. us Dayo Abdul MD IMG CT PROCEDURES Final Resul t * COLONOSCOPY (08/15/2023) Narrative Procedure Note Anthony Thomas MD PhD - 08/15/2023 3:15 PM EST [facility] Gastroenterology Patient Name: Seth Hui Procedure Date: 08/15/2023 3:15 PM Date of : 1975 Admit Type: Inpatient Age: 48 Room: [place] [address] Gender: Male Note Status: Finalized Attending MD: [...] the physician, the nurse, theanesthetist and the park maintenance technician in the pre-procedure area in the [...] Documents on File Type Date Recorded Patient Deli/Bakery Associate Expl anation Health Care Proxy 07/24/2023 2:11 [...] Zeng Spouse Health Care Agent Care Teams Dormitory Counselor Relationship Specialty Start Date End Date Ngoc Fung MD [address] [place] [address] PCP - General Internal Medicine 09/19/22
--- OUTSIDE RECORDS SUMMARY | 2025-06-15 09:02 | XMS_ITS | Encounter Summary ---
Author Organization [facility] Address [address] [place] [address] Care Team Providers Care Nursery Nurse Name Role Phone Ngoc Fung MD Primary Care Provider Encounter Details Date Type Department Care Team (Late st Contact Info) Description 10/31/2022 Orders Only [facility] [address] [place] [address] Selam Hinojosa, GLASS GLAZIER [address] [place] [address] Claudication of left lower extremity (Primary Dx) [...] Info) Description 11/28/2025 10:15 AM EDT Appointment [facility] ACC Vascular Lab [address] [place] [address] Dayo Abdul MD [address] [place] [address] 11/28/2025 11:20 AM EDT Follow-Up [facility] Building Vascular Surgery [address] [place] [address] Oil Well Drilling Manager: Dayo Wynn MD [address] [place] [address] documented as of this encounter Results * Due to [place] state law, this organization might not be [...] claudication in calves bilaterally us Selam Hinojosa GLASS GLAZIER CV VASCULAR PROCEDURES Fin al Result documented in this encounter Visit Diagnoses Diagnosis Claudication of left lower extremity- Primary Claudication of left lower extremity documented in this encounter Care Teams Nursery Nurse Relationship Specialty Start Date End Date Ngoc Fung MD [address] [place] [address] PCP - General Internal Medicine 09/19/22 documented as of this encounter
--- OUTSIDE RECORDS SUMMARY | 2025-06-15 09:02 | XMS_ITS | Clinical Summary ---
Author Organization [facility] Address [address] [place] [address] Phone Care Team Providers Care Organizational Consultant Name Role Phone Pcp, Unknown Primary Care [...] file Medical Devices Not on file Insurance [facility] HMO Member Subscriber Plan / Payer (Ef fective 2018-Present) Name:Seth Whelan Relation to Subscriber:Self Name:Seth Whelan Payer ID:Not on file Type:HMO Address: [place] [id number] [facility] ACO [facility] HMO [facility] Member Subscriber Plan / Payer (Ef fective 2018-Present) Name:Seth Whelan Relation to Subscriber:Self Name:Seth Whelan Payer ID:Not on file Type:O Address: [address] ACO [facility] HMO [facility] Member Subscriber Plan / Payer (Ef fective 2018-Present) Name:Seth Whelan Relation to Subscriber:Self Name:Seth Whelan Payer ID:Not on file Type:O [address] [facility] Member Subscriber Plan / Payer (Ef fective 2018-Present) Name:Seth Whelan Relation to Subscriber:Self Name:Seth Whelan Payer ID:Not on file Type:O [address] [facility] Member Subscriber Plan / Payer (Ef fective 2018-Present) Name:Seth Whelan Relation to Subscriber:Self Name:Seth Whelan Payer ID:Not on file Type:HMO Address: [address] [place] [address] [facility] HMO [place] [id number] Care Teams Organizational Consultant Relationship Specialty Start Date End Date Pcp, Unknown PCP - General 06/11/22 Additional Source Comments The information contained in this document represents components of the legal health record. It is not the complete legal health record.[facility]
--- OUTSIDE RECORDS SUMMARY | 2025-06-15 09:02 | XMS_ITS | Encounter Summary ---
Author Organization [facility] Address [address] [place] [address] Care Team Providers Care Survey Instrument Operator Name Role Phone Ngoc Fung MD Primary Care Provider Reason for Visit * Reason Comments Med Change Request Encounter Details Date Type Department Care Team (Late st Contact Info) Description 08/12/2023 Refill [facility] [address] [place] [address] Len Davis MD 55 [facility] [place] [address] Social History Tobacco Use Types Packs/Day Years [...] Info) Description 11/28/2025 10:15 AM EDT Appointment [facility] ACC Vascular Lab [address] [place] [address] Dayo Abdul MD [address] [place] [address] 11/28/2025 11:20 AM EDT Follow-Up [facility] Vascular Surgery [address] [place] [address] Software Configuration Manager: Dayo Wynn MD [address] [place] [address] documented as of this encounter Visit Diagnoses Not on filedocumented in this encounter Care Teams Survey Instrument Operator Relationship Specialty Start Date End Date Ngoc Fung MD [address] [place] [address] PCP - General Internal Medicine 09/19/22 documented as of this encounter
--- OUTSIDE RECORDS SUMMARY | 2025-06-15 09:02 | XMS_ITS | Encounter Summary ---
Author Organization [facility] Address [address] [place] [address] Care Team Providers Care Mandrel Maker Name Role Phone Ngoc Fung MD Primary Care Provider Reason for Visit * Reason Comments Med Change Request Encounter Details Date Type Department Care Team (Late st Contact Info) Description 09/11/2023 Refill [facility] [address] [place] [address] Gina Wyatt, DO [address] [place] [address] Social History Tobacco Use Types Packs/Day Years [...] Info) Description 11/28/2025 10:15 AM EDT Appointment [facility] ACC Vascular Lab [address] [place] [address] Dayo Abdul MD 55 [place] [address] 11/28/2025 11:20 AM EDT Follow-Up [facility] Vascular Surgery [address] [place] [address] Shift Foreman: Dayo Wynn MD [address] [place] [address] [phone] documented as of this encounter Visit Diagnoses Not on filedocumented in this encounter Care Teams Mandrel Maker Relationship Specialty Start Date End Date Ngoc Fung MD [address] [place] [address] PCP - General Internal Medicine 09/19/22 documented as of this encounter
--- OUTSIDE RECORDS SUMMARY | 2025-06-15 09:02 | XMS_ITS | Encounter Summary ---
Author Organization [facility] Address [address] [place] [address] Care Team Providers Care Reading Aide Name Role Phone Ngoc Fung MD Primary Care Provider Encounter Details Date Type Department Care Team (Late st Contact Info) Description 11/07/2022 Orders Only [address] [address] Selam Hinojosa, WOODENWARE ASSEMBLER [address] [place] [address] Social History Tobacco Use Types Packs/Day Years [...] Description 11/28/2025 10:15 AM EDT Appointment [facility] ACC Vascular Lab [address] [place] [address] Dayo Abdul MD 55 [place] [address] 11/28/2025 11:20 AM EDT Follow-Up [facility] Building Vascular Surgery [address] [place] [address] Pivot Maker: Dayo Wynn MD [address] [place] [address] documented as of this encounter Visit Diagnoses Not on filedocumented in this encounter Care Teams Reading Aide Relationship Specialty Start Date End Date Ngoc Fung MD [address] [place] [address] PCP - General Internal Medicine 09/19/22 documented as of this encounter
[2025-06-15 09:49] LABS: Anion Gap 12 (12-20); Blood Urea Nitrogen 12 mg/dL (9-16); Calcium 9.8 mg/dL (8.4-10.2); Carbon Dioxide 24 mmol/L (22-29); Chloride 107 mmol/L (96-108); Estimated Glomerular Filt Rate > 60; Potassium 4.7 mmol/L (3.3-5.1); Sodium 138 mmol/L (135-145)
== END 2025-06-15 08:33 | disposition home or self-care (01) ==
LOC: HO.XRAY 08:32
PROVIDERS: PCP Internal Medicine; Visit Provider Internal Medicine Gastroenterology
DX: R10.13 Epigastric pain (principal); R13.10 Dysphagia, unspecified; R07.9 Chest pain, unspecified
CPT/HCPCS: 36415; 74221; 80048

== ENCOUNTER → 2025-06-15 08:34 | Outpatient (BNV) | payer MEDICARE, MEDICAID, SELFPAY | PROVIDERS: PCP Internal Medicine; Visit Provider Radiology Diagnostic Radiology | DX: K29.70 Gastritis, unspecified, without bleeding (principal); R13.10 Dysphagia, unspecified | CPT/HCPCS: 74221 ==

== ENCOUNTER → 2025-06-17 09:55 | Outpatient (REF) | payer MEDICARE, MEDICAID, SELFPAY ==
--- NOTE | 2025-06-17 10:15 | CA_ITS ---
Transthoracic Echocardiogram Patient (Last, First, Middle): Seth Whelan C Gender: Male Date of : 1975 Age: 50 Procedure Date: 06/17/2025 Procedure Type: Transthoracic Echocardiogram Location: OP Height: 182. cm Weight: 69.85 kg BSA: 1.90 m2 Heart Rate: 69 bpm BP: 160 / 80 mmHg Industrial Service Technician: ROBIN Referring MD: Angel Flynn DIRECTOR BUSINESS Symptoms: R07.9 - Chest pain, unspecified Study Quality: Adequate ECG Rhythm: Sinus Conclusions: - The left ventricular systolic function is normal. The calculated ejection fraction is 64% by biplane method. - There is mild aortic valve regurgitation. Findings Left Ventricle Mildly increased left ventricular cavity size. There is normal left ventricular wall thickness. The left ventricular systolic function is normal. The calculated ejection fraction is 64% by biplane method. There is no evidence of regional wall motion abnormalities. Diastolic function is normal for age. Right Ventricle Normal right ventricular cavity size and systolic function. Atria Both atria are normal in size. Aortic Valve There is a normal trileaflet aortic valve. There is no aortic valve stenosis. There is mild aortic valve regurgitation. Mitral Valve There is mild anterior and posterior mitral leaflet thickening. There is trace mitral valve regurgitation. There is no mitral valve stenosis. Pulmonic Valve The pulmonic valve is likely normal. Tricuspid Valve There is mild tricuspid valve regurgitation. There is no evidence of pulmonary hypertension. Great Vessels The asc aorta is normal in size. Venous The inferior vena cava is normal in size and collapses greater than 50% with inspiration. Pericardium/Pleural There is no evidence of pericardial effusion. Prior Study Comparison No prior study available for comparison. Measurements 2D Linear Measurements IVSd: 0.82 0.6-0.9/0.6-1.0 cm LVIDd: 5.60 3.9-5.3/4.2-5.9 cm LVIDd Index: 2.95 2.4-3.2/2.2-3.1 cm/m2 LVIDs: 4.01 2.0-3.6 cm LVPWd: 1.07 0.7-1.1 cm LA Diam: 3.60 2.7-3.8/3.0-4.0 cm LAIDs Index: 1.89 1.5-2.3 cm/m2 LV Mass: 255.06 67-162/88-224 g LV Mass Index: 134.24 43-95/49-115 g/m2 LVOT Diam: 2.00 3.0+(-)1.3 cm 2D Systolic Function EF 4C: 68.90 >55% EF 2C: 60.60 >55% EF BiP: 64.00 >55% Mitral Valve MV Pk E: 0.69 MV PK A: 0.57 MV Decel Time: 164.00 E/A: 1.20 E'Lateral: 10.00 E'Medial: 9.36 E/E' Med: 7.40 E/E' Lat: 6.90 PHT: 48.00 MVA PHT: 4.58 Decel Reagan: 4.21 Aortic Valve AoV Pk Marlon: 1.67 AoV Mn Marlon: 1.09 AoV VTI: 0.34 AoV Pk Grad: 11.00 Aov Mn Grad: 5.00 RADHA Cont.VTI: 2.31 AI Pk Marlon: 4.71 AI Reagan: 2.36 LVOT LVOT Pk Amrlon: 1.14 LVOT Mn Marlon: 0.78 LVOT VTI: 0.25 LVOT Pk Grad: 5.00 LVOT Mn Grad: 3.00 LVOT Diam: 2.00 LVOT Area: 3.14 Diastolic Function MV Pk E: 0.69 MV Pk A: 0.57 E/A: 1.20 E'Medial: 9.36 E/E' Med: 7.40 E' Laterial: 10.00 E/E' Lat: 6.90 Right Ventricle TAPSE (mm): 29.00 TVS' Marlon: 12.10 Tricuspid Valve TR Pk Marlon: 2.61 TR Pk Grad: 27.00 RA Press: 3.00 RVSP: 30.00 Great Vessels Aorta Sinus of Valsalva: 3.00 2.0-3.5 cm Ao Asc: 3.20 2.1-3.4 cm Pulmonary Veins Pulm Vein S/D 1.50 Pulmonary Valve PV Pk Marlon: 0.86 Peak PV Grad: 3.00 Updated in Other Vendor System with Status of Final Ritesh Cisneros MD electronically signed on 06/18/2025 4:35:18 PM with status of Final
--- OUTSIDE RECORDS SUMMARY | 2025-06-17 10:40 | XMS_ITS | Encounter Summary ---
Author Organization [facility] Address [address] [place] [address] Care Team Providers Care Edge Cutting Machine Operator Name Role Phone Ngoc Fung MD Primary Care Provider Reason for Visit * Reason Comments Med Change Request Encounter Details Date Type Department Care Team (Late st Contact Info) Description 08/12/2023 Refill [facility] [address] [place] [address] Len Davis MD 55 [facility] [place] [address] Social History Tobacco Use Types Packs/Day Years [...] Info) Description 11/28/2025 10:15 AM EDT Appointment [facility] ACC Vascular Lab [address] [place] [address] Dayo Abdul MD [address] [place] [address] 11/28/2025 11:20 AM EDT Follow-Up [facility] Vascular Surgery [address] [place] [address] Furniture Cleaner: Dayo Wynn MD [address] [place] [address] documented as of this encounter Visit Diagnoses Not on filedocumented in this encounter Care Teams Edge Cutting Machine Operator Relationship Specialty Start Date End Date Ngoc Fung MD [address] [place] [id number] PCP - General Internal Medicine 09/19/22 documented as of this encounter
--- OUTSIDE RECORDS SUMMARY | 2025-06-17 10:40 | XMS_ITS | Encounter Summary ---
Author Organization [facility] Address [address] [place] [address] Care Team Providers Care Acetylene Burner Name Role Phone Ngoc Fung MD Primary Care Provider Encounter Details Date Type Department Care Team (Late st Contact Info) Description 11/07/2022 Orders Only [address] [address] Selam Hinojosa, POTATO PANCAKE FRIER 55 [place] [address] Social History Tobacco Use Types Packs/Day Years [...] Info) Description 11/28/2025 10:15 AM EDT Appointment [facility] ACC Vascular Lab [address] [place] [address] Dayo Abdul MD 55 [place] [address] 11/28/2025 11:20 AM EDT Follow-Up [facility] Building Vascular Surgery [address] [place] [address] Sponge Buffer: Dayo Wynn MD [address] [place] [address] documented as of this encounter Visit Diagnoses Not on filedocumented in this encounter Care Teams Acetylene Burner Relationship Specialty Start Date End Date Ngoc Fung MD [address] [place] [address] PCP - General Internal Medicine 09/19/22 documented as of this encounter
--- OUTSIDE RECORDS SUMMARY | 2025-06-17 10:40 | XMS_ITS | Clinical Summary ---
Author Organization [facility] Address [address] [place] [address] Care Team Providers Care Senior Controls Engineer Name Role Phone Ngoc Fung MD [...] Gard[place]. I have send a message to water server to cancer the colonoscopy with Dr. Beck [...] including as outpatient. - per discussion with [facility], can resume aspirin and AC [...] by anesthesia acute pain service. Add hydromorphone PURLER to current analgesic regimen -Mobilize out of [...] although he does follow with GI at [facility] [place] and records are incomplete in our system. [...] drink = 0.6 oz pur e alcohol) [facility] Utilities Answer Date Recorded In the past [...] Info) Description 11/28/2025 10:15 AM EDT Appointment [facility] ACC Vascular Lab [address] [place] [address] Dayo Abdul MD [address] [place] [address] 11/28/2025 11:20 AM EDT Follow-Up [facility] Building Vascular Surgery [address] [place], [place] [phone] Lawn Care Professional: Dayo Wynn MD [address] [place], [place] [phone] Health Maintenance Due Date Last Done Comments [...] history exists Medical Devices Implanted Type Area Carburetor Repairer Device Identifier Shelf Expiration Date Model / Serial / Lot Graft Vascular Hemashield 8mm X 60cm - [id number] - [id number] Implanted:Qty: 1 on 05/07/2024 by Dayo Abdul MD at [facility] Graft N/A: Aorta [employer] [facility] 11/22/2027 [id number] / [id number] / System Closure And Repair Suture-Mediated Perclose Prostyle - [id number] - [id number] Implanted:Qty: 1 on 10/31/2022 by Dayo Abdul MD at [facility] Implant Right: Groin [employer] [id number] 07/15/2024 [id number] / [id number] / [id number] System Closure And Repair Suture-Mediated Perclose Prostyle - [id number] - [id number] Implanted:Qty: 1 on 10/31/2022 by Dayo Abdul MD at [facility] Implant Right: Groin [employer] [id number] 07/15/2024 83732-17 / [id number] / [id number] Device Closure Vascular Plug 6fr Angio-Seal Vip - S0 - [id number] Implanted:Qty: 1 on 02/13/2023 by Dayo Abdul MD at [facility] Implant Right: Groin [employer] [id number] 10/15/2023 [id number] / 0 / [id number] System Closure And Repair Suture-Mediated Perclose Prostyle - [id number] Implanted:Qty: 2 on 07/20/2023 by Santos Willis MD at [facility] Implant [employer] 03/14/2025 65745-3 3 / [id number] System Closure And Repair Suture-Mediated Perclose Prostyle - [id number] Implanted:Qty: 3 on 02/14/2024 by Santos Willis MD at [facility] Implant Right: Groin [employer] 10/15/2025 73854-31 / / [id number] System Stent Vascular Self Expanding Over The Wire Sterile Innova [id number] - S0 - [id number] Implanted:Qty: 1 on 10/31/2022 by Dayo Abdul MD at [facility] Stent N/A: Abdomen [employer] [id number] 12/06/2026 [id number] / 0 / [id number] Stent Icast Covered [id number] - [id number] - [id number] Implanted:Qty: 1 on 10/31/2022 by Dayo Abdul MD at [facility] Stent N/A: Abdomen [employer] [facility] [id number] 07/18/2025 [id number] / [id number] / Stent Icast Covered 7mm X 22mm X 120cm - [id number] - [id number] Implanted:Qty: 1 on 07/20/2023 by Santos Willis MD at [facility] Stent [employer] [facility] 05/30/2026 [id number] / [id number] / Description:Implanted in SMA Graft Stent Vbx Balloon Expandable Endoprosthesis Reduced Profile [id number] 11mm Max Post-Dilation With Heparin Catheter 1uko253oh [place] Vi[employer] - [id number] - [id number] Implanted:Qty: 1 on 02/14/2024 by Santos Willis MD at [facility] Stent N/A: Arterial W L GORE 08/14/2026 [id number] / [id number] / Description:SMA Procedures * Due to [place] Ze[place] law, this organization might not be sharing negative HIV tests. Procedure Name Priority Date/Time Associated Diagnosis Comments CT ANGIOGRAM ABDOMEN PELVIS W CONTRAST Routine 11/22/2024 10:02 AM EDT Chronic mesenteric ischemia COLONOSCOPY 08/15/2023 from Last 3 Months or Most Recently Relevant to Health Maintenance Results * Due to [place] law, this organization might not be sharing [...] to obtain the completed interpretation. Workstation ID: [id number] Up-to-date CT equipment and radiation dose reduction [...] AND SOFT TISSUES: Unremarkable. Resulting Agency Comment [id number] Procedure Note Tam Horne MD - 11/22/2024 [...] possible to obtain thecompleted interpretation. Workstation ID: [id number] Up-to-date CT equipment and radiation dose reduction techniques wereemployed. CTDIvol: 1.2 - 10.4 mGy. DLP: 992 mGy-cm. us Dayo Abdul MD IMG CT PROCEDURES Final Resul t * COLONOSCOPY (08/15/2023) Narrative Procedure Note Anthony Thomas MD PhD - 08/15/2023 3:15 PM EST [facility] Gastroenterology Patient Name: Seth Hui Procedure Date: 08/15/2023 3:15 PM Date of : 1975 Admit Type: Inpatient Age: 48 Room: [place] [address] Gender: Male Note Status: Finalized Attending MD: [...] the physician, the nurse, theanesthetist and the compliance field technician in the pre-procedure area in the [...] Documents on File Type Date Recorded Patient Security And Compliance Analyst Expl anation Health Care Proxy 07/24/2023 2:11 [...] Zeng Spouse Health Care Agent Care Teams Senior Controls Engineer Relationship Specialty Start Date End Date Ngoc Fnug MD [address] [place] [address] PCP - General Internal Medicine 09/19/22
--- OUTSIDE RECORDS SUMMARY | 2025-06-17 10:40 | XMS_ITS | Encounter Summary ---
Author Organization [facility] Address [address] [place] [address] Care Team Providers Care Cutter Operator Asbestos Shingle Name Role Phone Ngoc Fung MD Primary Care Provider Encounter Details Date Type Department Care Team (Late st Contact Info) Description 10/31/2022 Orders Only [facility] [address] [place] [address] Selam Hinojosa, CONSUMER ATTORNEY [address] [place] [address] Claudication of left lower extremity (Primary Dx) [facility] [address] [place] [address] Dayo Abdul MD [address] [place] [address] 11/28/2025 11:20 AM EDT Follow-Up [facility] Building Vascular Surgery [address] [place] [address] Ground Worker: Dayo Wynn MD [address] [place] [phone] documented as of this encounter Results * Due to [place] state law, this organization might not be [...] claudication in calves bilaterally us Selam Hinojosa CONSUMER ATTORNEY CV VASCULAR PROCEDURES Fin al Result documented in this encounter Visit Diagnoses Diagnosis Claudication of left lower extremity- Primary Claudication of left lower extremity documented in this encounter Care Teams Cutter Operator Asbestos Shingle Relationship Specialty Start Date End Date Ngoc Fung MD [address] [place] [address] PCP - General Internal Medicine 09/19/22 documented as of this encounter
--- OUTSIDE RECORDS SUMMARY | 2025-06-17 10:40 | XMS_ITS | Clinical Summary ---
Author Organization [facility] Address [address] [place] [address] Phone Care Team Providers Care Bellows Charger Assembler Name Role Phone Pcp, Unknown Primary Care [...] file Medical Devices Not on file Insurance [facility] HMO Member Subscriber Plan / Payer (Ef fective 2018-Present) Name:Seth Whelan Relation to Subscriber:Self Name:Seth Whelan Payer ID:Not on file Type:HMO Address: [place] [id number] [facility] ACO [facility] HMO [facility] Member Subscriber Plan / Payer (Ef fective 2018-Present) Name:Seth Whelan Relation to Subscriber:Self Name:Seth Whelan Payer ID:Not on file Type:O Address: [address] ACO [facility] H[facility] Member Subscriber Plan / Payer (Ef fective 2018-Present) Name:Seth Whelan Relation to Subscriber:Self Name:Seth Whelan Payer ID:Not on file Type:O Address: [address] [facility] Member Subscriber Plan / Payer (Ef fective 2018-Present) Name:Seth Whelan Relation to Subscriber:Self Name:Seth Whelan Payer ID:Not on file Type:O Address: [address] [facility] Member Subscriber Plan / Payer (Ef fective 2018-Present) Name:Seth Whelan Relation to Subscriber:Self Name:Seth Whelan Payer ID:Not on file Type:HMO Address: [address] [place] [address] [facility] HMO [place] [id number] Care Teams Bellows Charger Assembler Relationship Specialty Start Date End Date Pcp, Unknown PCP - General 06/11/22 Additional Source Comments The information contained in this document represents components of the legal health record. It is not the complete legal health record.[facility]
--- OUTSIDE RECORDS SUMMARY | 2025-06-17 10:40 | XMS_ITS | Encounter Summary ---
Author Organization [facility] Address [address] [place] [address] Care Team Providers Care Pipeline Construction Inspector Name Role Phone Ngoc Fung MD Primary Care Provider Reason for Visit * Reason Comments Med Change Request Encounter Details Date Type Department Care Team (Late st Contact Info) Description 09/11/2023 Refill [facility] [address] [place] [address] Gina Wyatt, DO [address] [place] [address] Social History Tobacco Use Types Packs/Day Years [...] Info) Description 11/28/2025 10:15 AM EDT Appointment [facility] ACC Vascular Lab [address] [place] [address] Dayo Abdul MD [address] [place] [address] 11/28/2025 11:20 AM EDT Follow-Up [facility] Vascular Surgery [address] [place] [address] Corrections Caseworker: Dayo Wynn MD [address] [place] [address] [phone] documented as of this encounter Visit Diagnoses Not on filedocumented in this encounter Care Teams Pipeline Construction Inspector Relationship Specialty Start Date End Date Ngoc Fung MD [address] [place] [address] PCP - General Internal Medicine 09/19/22 documented as of this encounter
== END ==
LOC: HO.CARD 09:55
PROVIDERS: PCP Internal Medicine
DX: R07.9 Chest pain, unspecified (principal)
CPT/HCPCS: 93306

== ENCOUNTER 2025-06-17 17:25 | Emergency (ER) | payer MEDICARE, MEDICAID, SELFPAY ==
--- NOTE | ~2025-06-17 | XR_ITS ---
CLINICAL HISTORY: chest pain 2 view chest x-ray Comparison: CR/SR - XR CHEST 1 VIEW - 04/05/25 14:46 EDT Findings: The lungs are clear. Heart size is normal. No acute fracture. IMPRESSION: 1. No acute findings. This document has been electronically signed by: Azul Mejia MD on 06/17/2025 18:19:43
--- NOTE | 2025-06-17 17:27 | ECG_ITS ---
Test Reason : CHEST PAIN Blood Pressure : */* mmHG Vent. Rate : 84 BPM Atrial Rate : 84 BPM P-R Int : 112 ms QRS Dur : 86 ms QT Int : 330 ms P-R-T Axes : 76 31 5 degrees QTcB Int : 389 ms Normal sinus rhythm with sinus arrhythmia Low voltage QRS Borderline ECG When compared with ECG of 05-Apr-2025 14:33, No significant change was found Referred By: Generic ED Physician Electronically Signed By: BACILIO WARREN
[2025-06-17 17:42] VITALS: BP 180/79; PULSE 86; RESP 18; TEMP 36.4; O2SAT 100; BMI 24.1
--- NOTE | 2025-06-17 17:43 | ED.GENADULT ---
HPI - General Adult General Chief complaint: Chest Pain Stated complaint: Cp Time Seen by Provider: 06/17/25 18:34 Related Data Previous Rx's ?Medication ?Instructions ?Recorded aspirin 81 mg tablet,delayed 81 mg PO DAILY #90 tabs 09/10/24 release lansoprazole 30 mg capsule,delayed 30 mg PO DAILY #90 caps 03/07/25 release ferrous sulfate 325 mg (65 mg 325 mg PO DAILY 90 days #90 tabs 04/05/25 iron) tablet atorvastatin 10 mg tablet (Lipitor) 10 mg PO DAILY #90 tabs 06/03/25 ondansetron 4 mg disintegrating 4 mg PO Q6H PRN nausea and 06/17/25 tablet vomiting #10 tabs Allergies Allergy/AdvReac Type Severity Reaction Status Date / Time No Known Allergies Allergy Verified 06/17/25 17:43 [facility] Past Medical History Medical History Cholelithiasis AVM (arteriovenous malformation) of duodenum, acquired with hemorrhage Vitamin D deficiency Mesenteric artery thrombosis CAD (coronary artery disease) Hyperlipidemia 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 Maternal Aunt No problems noted. Social History Social History Household Members: Spouse Housing: Apartment Do you presently have visiting nurse or other home services: No Alcohol intake: former Patient Tobacco Use Status: Former Tobacco user Tobacco use type: Cigar Years Smoked: 3 e-Cigarette/Vaping Use: Never Used Substance Use Type: Marijuana Advance Directives Date on File: 05/19/24 service: No Current occupational status: disabled Current occupational exposures/hazards: No Cognitive needs: No Hearing needs: No Vision needs: No Physical Exam ED Vital Signs: Vital Signs - 24 hr 06/17/25 17:42 06/17/25 18:30 06/17/25 21:02 Temperature 97.6 F 98.9 F 99.0 F Pulse Rate 86 87 88 Respiratory Rate 18 18 14 Blood Pressure 180/79 H 165/79 H 124/63 Pulse Oximetry 100 100 100 Oxygen Delivery Method Room Air Room Air Room Air BMI result Body Mass Index 24.1 Course Course Course Narrative: This is a rapid medical exam performed by Joseph Ramírez NP: Additional HPI, ROS, PE not included below will be deferred to primary provider. Patient is a 50y/o M presenting with complaint of chest pain since yesterday, worse today. Pale, vomiting in triage. States he had a swallow study the other day and feels the contrast upset his stomach since. Plan: EKG, labs, CXR 1823 Patient with continued vomiting despite zofran, appears unwell, pale, diaphoretic and vomiting. Charge aware and patient brought to the main ED, repeat EKG obtained. Medications Administered Discontinued Medications Generic Name Dose Route Start Last Admin Trade Name Freq PRN Reason Stop Dose Admin Sodium Chloride 1,000 mls @ 999 mls/hr 06/17/25 18:45 06/17/25 18:54 Ns IV 06/17/25 19:45 999 mls/hr .Q1H1M LATOSHA Administration Morphine Sulfate 4 mg 06/17/25 18:43 06/17/25 18:53 Morphine Sulfate 4 Mg/Ml Cartridge IVPUSH 06/17/25 18:44 4 mg ONCE ONE Administration Protocol Ondansetron HCl 4 mg 06/17/25 18:07 06/17/25 18:16 Ondansetron Odt 4 Mg Tab.Rapdis TRANSLINGU 06/17/25 18:08 4 mg ONCE ONE Administration Medical Decision Making Medical Decision Making [facility] Narrative: 16:10 I received sign-out from my colleague Dr. Morrow patient's labs are at baseline, no acute abnormality in patient's hematology, chemistry within normal limits, troponin normal /negative - chest CT from today does not show any acute abnormality - I reviewed patient's radiology reports from 06/15/2025, barium swallow: Mildly disordered esophageal peristalsis, no evidence of esophageal spasms, no definitive gastroesophageal reflux of served, no hernia, possible gastritis - patient has already received IV fluids and morphine. Patient has not had any further episodes of vomiting. Patient was given an extra dose of p.o. tramadol - Vitals remained stable, blood pressure 124/63, pulse 88, respirations 14, oxygen 100% on room air. Lab Data 06/17/25 18:17 06/17/25 18:17 Labs: Lab Results 06/17/25 Range/Units 18:17 WBC 6.3 (4.8-10.8) X10*3/uL RBC 4.65 (4.60-5.80) X10*6/uL Hgb 11.5 L D (14.0-18.0) g/dl Hct 36.8 L (42.0-52.0) % MCV 79.1 L (80.0-98.0) fL MCH 24.7 L (27.0-33.0) pg MCHC 31.3 (31.0-36.0) g/dl RDW 22.7 H (11.0-16.0) % Plt Count 347 (160-400) X10*3/uL MPV 9.2 L (9.4-12.4) fL Immature Gran % (Auto) 0.5 H (0.0-0.4) % Neut % (Auto) 64.0 (45-73) % Lymph % (Auto) 24.0 (20-40) % Bates % (Auto) 10.5 (2-11) % Eos % (Auto) 0.2 (0-4) % Baso % (Auto) 0.8 (0-2) % Lymph # (Auto) 1.5 (1.2-4.9) X10*3/uL Bates # (Auto) 0.7 (0.1-1.2) X10*3/uL Eos # (Auto) 0.0 (0.0-0.4) X10*3/uL Baso # (Auto) 0.1 (0.0-0.2) X10*3/uL Abs Immat Gran (auto) 0.03 (0.00-0.03) X10*3/uL Absolute Neuts (auto) 4.0 (2.0-8.3) x10*3/uL Absolute Nucleated RBC 0.000 (0.0-0.012) X10*3/uL Nucleated RBC % (auto) 0.0 (0.0-0.2) /100WBC PT 10.8 L (10.9-12.4) SEC INR 0.9 (0.9-1.1) Sodium 139 (135-145) mmol/L Potassium 4.0 (3.3-5.1) mmol/L Chloride 106 (96-108) mmol/L Carbon Dioxide 24 (22-29) mmol/L Anion Gap 13 (12-20) BUN 13 (9-16) mg/dL Creatinine 0.86 (0.5-1.4) mg/dL Estim Creat Clear Calc 89.3 Estimated GFR > 60 Random Glucose 198 H (60-115) mg/dL Calcium 10.1 (8.4-10.2) mg/dL Magnesium 1.8 (1.6-2.6) mg/dL Total Bilirubin 0.7 (0.0-1.0) mg/dL AST 25 (5-37) U/L ALT 21 (0-40) U/L Alkaline Phosphatase 90 (39-117) U/L Troponin I High Sens < 2.7 (<3.5-35.0) ng/L Total Protein 7.9 (6.5-8.0) g/dL Albumin 4.9 (3.5-5.0) g/dL Discharge Plan Discharge Clinical Impression: Nausea & vomiting, Atypical chest pain Patient Disposition: Home, Self-Care Instructions: Chest Pain (ED), Acute Nausea and Vomiting (ED) Prescriptions: New ondansetron 4 mg tablet,disintegrating 4 mg PO Q6H PRN (Reason: nausea and vomiting) Qty: 10 0RF No Action aspirin 81 mg tablet,delayed release (DR/EC) 81 mg PO DAILY Qty: 90 1RF lansoprazole 30 mg capsule,delayed release(DR/EC) 30 mg PO DAILY Qty: 90 1RF ferrous sulfate 325 mg (65 mg iron) tablet 325 mg PO DAILY 90 Days Qty: 90 0RF atorvastatin [Lipitor] 10 mg tablet 10 mg PO DAILY Qty: 90 1RF Print Language: Amharic
--- NOTE | 2025-06-17 18:16 | ECG_ITS ---
Test Reason : REPEAT EKG Blood Pressure : */* mmHG Vent. Rate : 73 BPM Atrial Rate : 73 BPM P-R Int : 120 ms QRS Dur : 84 ms QT Int : 332 ms P-R-T Axes : 40 33 -11 degrees QTcB Int : 365 ms Normal sinus rhythm Normal ECG When compared with ECG of 17-Jun-2025 17:36, No significant change was found Referred By: Radha Ramírez Electronically Signed By: BACILIO WARREN
[2025-06-17 18:30] VITALS: BP 165/79; PULSE 87; RESP 18; TEMP 37.2; O2SAT 100
[2025-06-17 18:36] LABS: MANUAL DIFF FLAG NO
[2025-06-17 18:44] LABS: Hematocrit 36.8 % (42.0-52.0); Hemoglobin 11.5 g/dl (14.0-18.0); Imm Gran Abs Auto 0.03 X10*3/uL (0.00-0.03); Imm Gran Pct Auto 0.5 % (0.0-0.4); Lymphocytes Absolute Auto 1.5 X10*3/uL (1.2-4.9); Mean Corpuscular HGB Conc 31.3 g/dl (31.0-36.0); Mean Corpuscular Hemoglobin 24.7 pg (27.0-33.0); Mean Corpuscular Volume 79.1 fL (80.0-98.0); NRBC Abs Auto 0.000 X10*3/uL (0.0-0.012); NRBC Pct Auto 0.0 /100WBC (0.0-0.2); Platelet Count 347 X10*3/uL (160-400); Red Blood Count 4.65 X10*6/uL (4.60-5.80); White Blood Count 6.3 X10*3/uL (4.8-10.8)
[2025-06-17 18:58] LABS: Alanine Aminotransferase 21 U/L (0-40); Albumin Level 4.9 g/dL (3.5-5.0); Alkaline Phosphatase 90 U/L (39-117); Anion Gap 13 (12-20); Aspartate Amino Transferase 25 U/L (5-37); Blood Urea Nitrogen 13 mg/dL (9-16); Calcium 10.1 mg/dL (8.4-10.2); Carbon Dioxide 24 mmol/L (22-29); Chloride 106 mmol/L (96-108); Creatinine Clr Calc Pharmacy 89.3; Estimated Glomerular Filt Rate > 60; Magnesium 1.8 mg/dL (1.6-2.6); Potassium 4.0 mmol/L (3.3-5.1); Sodium 139 mmol/L (135-145); Total Protein 7.9 g/dL (6.5-8.0)
[2025-06-17 19:02] LABS: INTERNATIONAL NORM RATIO 0.9 (0.9-1.1); Prothrombin Time 10.8 SEC (10.9-12.4)
[2025-06-17 19:07] LABS: Troponin-I High Sensitivity < 2.7 ng/L (<3.5-35.0)
--- OUTSIDE RECORDS SUMMARY | 2025-06-17 19:08 | XMS_ITS | Encounter Summary ---
Author Organization [facility] Address [address] [place] [address] Care Team Providers Care Wort Extractor Name Role Phone Ngoc Fung MD Primary Care Provider Encounter Details Date Type Department Care Team (Late st Contact Info) Description 11/07/2022 Orders Only [address] [address] Selam Hinojosa, SURFACE GRINDER [address] [place] [address] Social History Tobacco Use Types Packs/Day Years [...] Description 11/28/2025 10:15 AM EDT Appointment [facility] ACC Vascular Lab [address] [place] [address] Dayo Abdul MD [address] [place] [address] 11/28/2025 11:20 AM EDT Follow-Up [facility] Building Vascular Surgery [address] [place] [address] Plastic Surgery Technician: Dayo Wynn MD [address] [place] [address] documented as of this encounter Visit Diagnoses Not on filedocumented in this encounter Care Teams Wort Extractor Relationship Specialty Start Date End Date Ngoc Fung MD [address] [place] [address] PCP - General Internal Medicine 09/19/22 documented as of this encounter
--- OUTSIDE RECORDS SUMMARY | 2025-06-17 19:08 | XMS_ITS | Clinical Summary ---
Author Organization [facility] Address [address] [place] [address] Phone Care Team Providers Care Fourdrinier Machine Operator Name Role Phone Pcp, Unknown Primary Care [...] file Medical Devices Not on file Insurance [facility] H[facility] Member Subscriber Plan / Payer (Ef fective 2018-Present) Name:Seth Whelan Relation to Subscriber:Self Name:Seth Whelan Payer ID:Not on file Type:HMO Address: [place] [id number] [facility] ACO [facility] HMO [facility] Member Subscriber Plan / Payer (Ef fective 2018-Present) Name:Seth Whelan Relation to Subscriber:Self Name:Seth Whelan Payer ID:Not on file Type:O Address: [address] ACO [facility] HMO [facility]CO [facility] Member Subscriber Plan / Payer (Ef fective 2018-Present) Name:Seth Whelan Relation to Subscriber:Self Name:Seth Whelan Payer ID:Not on file Type:O [address] [facility] Member Subscriber Plan / Payer (Ef fective 2018-Present) Name:Seth Whelan Relation to Subscriber:Self Name:Seth Whelan Payer ID:Not on file Type:O Address: [address] [facility] Member Subscriber Plan / Payer (Ef fective 2018-Present) Name:Seth Whelan Relation to Subscriber:Self Name:Seth Whelan Payer ID:Not on file Type:HMO Address: [address] [address] [facility] HMO [place] [id number] Care Teams Fourdrinier Machine Operator Relationship Specialty Start Date End Date Pcp, Unknown PCP - General 06/11/22 Additional Source Comments The information contained in this document represents components of the legal health record. It is not the complete legal health record.[facility]
--- OUTSIDE RECORDS SUMMARY | 2025-06-17 19:08 | XMS_ITS | Clinical Summary ---
Author Organization [facility] Address [address] [place] [address] Care Team Providers Care Online User Experience Strategist Name Role Phone Ngoc Fung MD Primary [...] Garduno. I have send a message to chief crew scheduler to cancer the colonoscopy with Dr. [...] including as outpatient. - per discussion with [facility], can resume aspirin and AC instead [...] by anesthesia acute pain service. Add hydromorphone STRAW HAT BRUSHER to current analgesic regimen -Mobilize out of [...] although he does follow with GI at [facility] and records are incomplete in our system. [...] drink = 0.6 oz pur e alcohol) [facility] Utilities Answer Date Recorded In the [...] Info) Description 11/28/2025 10:15 AM EDT Appointment [facility] ACC Vascular Lab [address] [place] [address] Dayo Abdul MD [address] [place] [address] 11/28/2025 11:20 AM EDT Follow-Up [facility] Building Vascular Surgery [address] [place], [place] [phone] Senior Java Developer: Dayo Wynn MD [address] [place], [place] [phone] Health Maintenance Due Date Last Done Comments [...] history exists Medical Devices Implanted Type Area Assembly Instructions Writer Device Identifier Shelf Expiration Date Model / Serial / Lot Graft Vascular Hemashield 8mm X 60cm - [id number] - [id number] Implanted:Qty: 1 on 05/07/2024 by Dayo Abdul MD at [facility] Graft N/A: Aorta Icanbesponsored [facility] 11/22/2027 [id number] / [id number] / System Closure And Repair Suture-Mediated Perclose Prostyle - [id number] - [id number] Implanted:Qty: 1 on 10/31/2022 by Dayo Abdul MD at [facility] Implant Right: Groin [employer] [id number] 07/15/2024 44515-65 / [id number] / [id number] System Closure And Repair Suture-Mediated Perclose Prostyle - [id number] - [id number] Implanted:Qty: 1 on 10/31/2022 by Dayo Abdul MD at [facility] Implant Right: Groin [employer] [id number] 07/15/2024 00063-30 / [id number] / [id number] Device Closure Vascular Plug 6fr Angio-Seal Vip - S0 - [id number] Implanted:Qty: 1 on 02/13/2023 by Dayo Abdul MD at [facility] Implant Right: Groin [employer] [id number] 10/15/2023 [id number] / 0 / [id number] System Closure And Repair Suture-Mediated Perclose Prostyle - [id number] Implanted:Qty: 2 on 07/20/2023 by Santos Willis MD at [facility] Implant [employer] 03/14/2025 [id number] 3 / [id number] System Closure And Repair Suture-Mediated Perclose Prostyle - [id number] Implanted:Qty: 3 on 02/14/2024 by Santos Willis MD at [facility] Implant Right: Groin [employer] 10/15/2025 [id number] / / [id number] System Stent Vascular Self Expanding Over The Wire Sterile Innova [id number] - S0 - [id number] Implanted:Qty: 1 on 10/31/2022 by Dayo Abdul MD at [facility] Stent N/A: Abdomen [employer] [id number] 12/06/2026 [id number] / 0 / [id number] Stent Icast Covered [id number] - [id number] - [id number] Implanted:Qty: 1 on 10/31/2022 by Dayo Abdul MD at [facility] Stent N/A: Abdomen Icanbesponsored [facility] [id number] 07/18/2025 [id number] / [id number] / Stent Icast Covered 7mm X 22mm X 120cm - [id number] - [id number] Implanted:Qty: 1 on 07/20/2023 by Santos Willis MD at [facility] Stent Icanbesponsored [facility] 05/30/2026 [id number] / [id number] / Description:Implanted in SMA Graft Stent Vbx Balloon Expandable Endoprosthesis Reduced Profile [id number] 11mm Max Post-Dilation With Heparin Catheter 5jlv990pg [place] [employer] - [id number] - [id number] Implanted:Qty: 1 on 02/14/2024 by Santos Willis MD at [facility] Stent N/A: Arterial W L GORE 08/14/2026 [id number] / [id number] / Description:SMA Procedures * Due to [place] [employer] law, this organization might not be sharing negative HIV tests. Procedure Name Priority Date/Time Associated Diagnosis Comments CT ANGIOGRAM ABDOMEN PELVIS W CONTRAST Routine 11/22/2024 10:02 AM EDT Chronic mesenteric ischemia COLONOSCOPY 08/15/2023 from Last 3 Months or Most Recently Relevant to Health Maintenance Results * Due to [place] [employer] law, this organization might not be sharing [...] to obtain the completed interpretation. Workstation ID: [id number] Up-to-date CT equipment and radiation dose reduction [...] AND SOFT TISSUES: Unremarkable. Resulting Agency Comment [id number] Procedure Note Tam Horne MD - 11/22/2024 [...] possible to obtain thecompleted interpretation. Workstation ID: [id number] Up-to-date CT equipment and radiation dose reduction [...] 1975 Admit Type: Inpatient Age: 48 Room: [place] [address] Gender: Male Note Status: Finalized Attending MD: [...] the physician, the nurse, theanesthetist and the pharmaceutical development technician in the pre-procedure area in the [...] Documents on File Type Date Recorded Patient Shirt Marker Expl anation Health Care Proxy 07/24/2023 2:11 [...] Zeng Spouse Health Care Agent Care Teams Online User Experience Strategist Relationship Specialty Start Date End Date Ngoc Fung MD [address] [place] [address] PCP - General Internal Medicine 09/19/22
--- OUTSIDE RECORDS SUMMARY | 2025-06-17 19:08 | XMS_ITS | Encounter Summary ---
Author Organization [facility] Address [address] [place] [address] Care Team Providers Care Arranger Assembler Name Role Phone Ngoc Fung MD Primary Care Provider Encounter Details Date Type Department Care Team (Late st Contact Info) Description 10/31/2022 Orders Only [facility] [address] [place] [address] Selam Hinojosa, PRINTING MECHANIST [address] [place] [address] Claudication of left lower extremity (Primary Dx) [...] Appointment [facility] ACC Vascular Lab [address] [place] [address] Dayo Abdul MD [address] [place] [address] 11/28/2025 11:20 AM EDT Follow-Up [facility] Building Vascular Surgery [address] [place] [address] Electrical Engineering Drafting Officer: Dayo Wynn MD [address] [place] [address] documented as of this encounter Results * Due to [place] state law, this organization might not be [...] claudication in calves bilaterally us Selam Hinojosa PRINTING MECHANIST CV VASCULAR PROCEDURES Fin al Result documented in this encounter Visit Diagnoses Diagnosis Claudication of left lower extremity- Primary Claudication of left lower extremity documented in this encounter Care Teams Arranger Assembler Relationship Specialty Start Date End Date Ngoc Fung MD [address] [place] [address] PCP - General Internal Medicine 09/19/22 documented as of this encounter
--- OUTSIDE RECORDS SUMMARY | 2025-06-17 19:08 | XMS_ITS | Encounter Summary ---
Author Organization [facility] Address [address] [place] [address] Care Team Providers Care Clothes Shaker Name Role Phone Ngoc Fung MD Primary Care Provider Reason for Visit * Reason Comments Med Change Request Encounter Details Date Type Department Care Team (Late st Contact Info) Description 09/11/2023 Refill [facility] [address] [place] [address] Gina Wyatt, DO [address] [place] [address] Social History Tobacco Use Types Packs/Day Years [...] Info) Description 11/28/2025 10:15 AM EDT Appointment [facility] ACC Vascular Lab [address] [place] [address] Dayo Abdul MD [address] [place] [address] 11/28/2025 11:20 AM EDT Follow-Up [facility] Vascular Surgery [address] [place] [address] Safety Tech: Dayo Wynn MD [address] [place] [address] [phone] documented as of this encounter Visit Diagnoses Not on filedocumented in this encounter Care Teams Clothes Shaker Relationship Specialty Start Date End Date Ngoc Fung MD [address] [place] [address] PCP - General Internal Medicine 09/19/22 documented as of this encounter
--- OUTSIDE RECORDS SUMMARY | 2025-06-17 19:08 | XMS_ITS | Encounter Summary ---
Author Organization [facility] Address [address] [place] [address] Care Team Providers Care Internal Grinder Tender Name Role Phone Ngoc Fung MD Primary Care Provider Reason for Visit * Reason Comments Med Change Request Encounter Details Date Type Department Care Team (Late st Contact Info) Description 08/12/2023 Refill [facility] [address] [place] [address] Len Davis MD 55 [facility] [place] [address] Social History Tobacco Use Types Packs/Day Years [...] Info) Description 11/28/2025 10:15 AM EDT Appointment [facility] ACC Vascular Lab [address] [place] [address] Dayo Abdul MD [address] [place] [address] 11/28/2025 11:20 AM EDT Follow-Up [facility] Vascular Surgery [address] [place] [address] Trainman: Dayo Wynn MD [address] [place] [address] documented as of this encounter Visit Diagnoses Not on filedocumented in this encounter Care Teams Internal Grinder Tender Relationship Specialty Start Date End Date Ngoc Fung MD [address] [place] [address] PCP - General Internal Medicine 09/19/22 documented as of this encounter
[2025-06-17 21:02] VITALS: BP 124/63; PULSE 88; RESP 14; TEMP 37.2; O2SAT 100
[2025-06-17 22:27] VITALS: BP 124/63; PULSE 88; RESP 14; TEMP 37.2; O2SAT 100
== END 2025-06-17 22:27 | disposition home or self-care (01) ==
PROVIDERS: Registered Nurse Emergency; Emergency Provider Emergency Medicine; PCP Internal Medicine
DX: R07.89 Other chest pain (principal); R11.2 Nausea with vomiting, unspecified; K80.20 Calculus of gallbladder without cholecystitis without obstruction; K31.811 Angiodysplasia of stomach and duodenum with bleeding; E55.9 Vitamin D deficiency, unspecified; I25.10 Atherosclerotic heart disease of native coronary artery without angina pectoris; E78.5 Hyperlipidemia, unspecified; K55.1 Chronic vascular disorders of intestine; F17.290 Nicotine dependence, other tobacco product, uncomplicated; R73.01 Impaired fasting glucose; R19.7 Diarrhea, unspecified; K21.9 Gastro-esophageal reflux disease without esophagitis; F12.90 Cannabis use, unspecified, uncomplicated; Z79.82 Long term (current) use of aspirin
CPT/HCPCS: 36415; 71046; 80053; 83735; 84484; 85025; 85610; 93005; 96361; 96374; 99284; 99285; J2270

== ENCOUNTER → 2025-06-17 17:27 | Outpatient (BNV) | payer MEDICARE, MEDICAID, SELFPAY | PROVIDERS: Emergency Provider Emergency Medicine; PCP Internal Medicine; Visit Provider Internal Medicine | DX: I35.1 Nonrheumatic aortic (valve) insufficiency (principal); R07.89 Other chest pain | CPT/HCPCS: 93010; 93306 ==

== ENCOUNTER → 2025-06-17 17:45 | Outpatient (BNV) | payer MEDICARE, MEDICAID, SELFPAY | PROVIDERS: Emergency Provider Emergency Medicine; Visit Provider Radiology Diagnostic Radiology | DX: R07.89 Other chest pain (principal) | CPT/HCPCS: 71046 ==

== ENCOUNTER 2025-07-20 10:59 | Outpatient (REF) | payer MEDICARE, MEDICAID, SELFPAY ==
--- NOTE | ~2025-07-20 | US_ITS ---
EXAMINATION: Noninvasive assessment of the bilateral lower extremities without ARTERIAL DUPLEX, ANKLE BRACHIAL INDICES (ABIs), and PULSE VOLUME RECORDINGS (PVRs). CLINICAL INFORMATION: I 73.9. TECHNIQUE: Duplex Doppler techniques with waveform analysis and measurement of velocities in the bilateral common femoral, profunda femoris, superficial femoral, popliteal and tibial arteries were performed. The study was performed only at rest. COMPARISON: None FINDINGS: Calcified plaques. DIRECT DUPLEX DOPPLER FINDINGS: RIGHT LEG: Common femoral artery: 278 cm/s, phasicity: Triphasic. Profunda femoris artery: 133 cm/s, phasicity: Triphasic. Spectral broadening. Superficial femoral artery (proximal): 119 cm/s, phasicity: Triphasic. Spectral broadening. Superficial femoral artery (mid): 132 cm/s, phasicity: Triphasic. Spectral broadening. Superficial femoral artery (distal): 116 cm/s, phasicity: Triphasic. Popliteal artery: 89 cm/s, phasicity: Triphasic. Posterior tibial artery: 88 cm/s, phasicity: Triphasic. Peroneal artery: 46 cm/s, phasicity: Triphasic. Spectral broadening. Anterior tibial artery: 60 cm/s, phasicity: Triphasic. Spectral broadening. Dorsalis pedis artery: 50 cm/s, phasicity:Triphasic. Spectral broadening. LEFT LEG: Common femoral artery: 123 cm/s, phasicity: Triphasic. Profunda femoris artery: 61 cm/s, phasicity: Monophasic. Spectral broadening. Superficial femoral artery (proximal): 62 cm/s, phasicity: Triphasic. Spectral broadening. Superficial femoral artery (mid): 78 cm/s, phasicity: Triphasic. Spectral broadening. Superficial femoral artery (distal): 77 cm/s, phasicity: Triphasic. Popliteal artery: 51 cm/s, phasicity: Biphasic. Spectral broadening. Posterior tibial artery: 46 cm/s, phasicity: Biphasic. Spectral broadening. Peroneal artery: 28 cm/s, phasicity: Biphasic. Spectral broadening. Anterior tibial artery: 26 cm/s, phasicity: Biphasic. Spectral broadening. Dorsalis pedis artery: No color Doppler flow interrogation. US/US arterial duplex LE BI IMPRESSION: Right leg: Normal patency and waveforms throughout the interrogated arteries. 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 Electronically signed by: Joe Guy MD 07/20/2025 12:06 PM MELQUIADES RP
--- OUTSIDE RECORDS SUMMARY | 2025-07-20 13:02 | XMS_ITS | Encounter Summary ---
Author Organization [facility] Address [address] [place] [address] Care Team Providers Care Steel Tier Name Role Phone Ngoc Fung MD Primary Care Provider Encounter Details Date Type Department Care Team (Late st Contact Info) Description 11/07/2022 Orders Only [address] [address] Selam Hinojosa, GANG SUPERVISOR [address] [place] [address] Social History Tobacco Use Types Packs/Day Years [...] Info) Description 11/28/2025 10:15 AM EDT Appointment [facility] ACC Vascular Lab [address] [place] [address] Dayo Abdul MD [address] [place] [address] 11/28/2025 11:20 AM EDT Follow-Up [facility] Building Vascular Surgery [address] [place] [address] E Tailer: Dayo Wynn MD [address] [place] [address] documented as of this encounter Visit Diagnoses Not on filedocumented in this encounter Care Teams Steel Tier Relationship Specialty Start Date End Date Ngoc Fung MD [address] [place] [address] PCP - General Internal Medicine 09/19/22 documented as of this encounter
--- OUTSIDE RECORDS SUMMARY | 2025-07-20 13:02 | XMS_ITS | Encounter Summary ---
Author Organization [facility] Address [address] [place] [address] Care Team Providers Care Fraud Analyst Name Role Phone Ngoc Fung MD Primary Care Provider Encounter Details Date Type Department Care Team (Late st Contact Info) Description 10/31/2022 Orders Only [address] [address] Selam Hinojosa, SAS ETL DEVELOPER [address] [place] [address] Claudication of left lower extremity (Primary Dx) [...] Info) Description 11/28/2025 10:15 AM EDT Appointment [facility] ACC Vascular Lab [address] [place], [place] [phone] Dayo Abdul MD [address] [place] [address] 11/28/2025 11:20 AM EDT Follow-Up [facility] Building Vascular Surgery [address] [place] [address] Homicide Detective: Dayo Wynn MD [address] [place] [address] documented as of this encounter Results * Due to [place] state law, this organization might not be [...] claudication in calves bilaterally us Selam Hinojosa SAS ETL DEVELOPER CV VASCULAR PROCEDURES Fin al Result documented in this encounter Visit Diagnoses Diagnosis Claudication of left lower extremity- Primary Claudication of left lower extremity documented in this encounter Care Teams Fraud Analyst Relationship Specialty Start Date End Date Ngoc Fnug MD [address] [place] [address] PCP - General Internal Medicine 09/19/22 documented as of this encounter
--- OUTSIDE RECORDS SUMMARY | 2025-07-20 13:02 | XMS_ITS | Encounter Summary ---
Author Organization [facility] Address [address] [place] [address] Care Team Providers Care Time Broker Name Role Phone Ngoc Fung MD Primary Care Provider Reason for Visit * Reason Comments Med Change Request Encounter Details Date Type Department Care Team (Late st Contact Info) Description 08/12/2023 Refill [facility] [address] [place] [address] Len Davis MD 55 [facility] [place] [address] Social History Tobacco Use Types Packs/Day Years [...] Info) Description 11/28/2025 10:15 AM EDT Appointment [facility] ACC Vascular Lab [address] [place] [address] Dayo Abdul MD [address] [place] [address] 11/28/2025 11:20 AM EDT Follow-Up [facility] Vascular Surgery [address] [place] [address] Db2 Systems Programmer: Dayo Wynn MD [address] [place] [address] documented as of this encounter Visit Diagnoses Not on filedocumented in this encounter Care Teams Time Broker Relationship Specialty Start Date End Date Ngoc Fung MD [address] [place] [address] PCP - General Internal Medicine 09/19/22 documented as of this encounter
--- OUTSIDE RECORDS SUMMARY | 2025-07-20 13:02 | XMS_ITS | Encounter Summary ---
Author Organization [facility] Address [address] [place] [address] Care Team Providers Care Patternmaker Name Role Phone Ngoc Fung MD Primary Care Provider Reason for Visit * Reason Comments Med Change Request Encounter Details Date Type Department Care Team (Late st Contact Info) Description 09/11/2023 Refill [facility] [address] [place] [address] Gina Wyatt, DO [address] [place] [address] Social History Tobacco Use Types Packs/Day Years [...] Info) Description 11/28/2025 10:15 AM EDT Appointment [facility] ACC Vascular Lab [address] [place] [address] Dayo Abdul MD [address] [place] [address] 11/28/2025 11:20 AM EDT Follow-Up [facility] Building Vascular Surgery [address] [place] [address] Olive Brine Tester: Dayo Wynn MD [address] [place] [address] [phone] documented as of this encounter Visit Diagnoses Not on filedocumented in this encounter Care Teams Patternmaker Relationship Specialty Start Date End Date Ngoc Fung MD [address] [place] [address] PCP - General Internal Medicine 09/19/22 documented as of this encounter
--- OUTSIDE RECORDS SUMMARY | 2025-07-20 13:02 | XMS_ITS | Clinical Summary ---
Author Organization [facility] Address [address] [place] [address] Care Team Providers Care Elevator Operator Freight Name Role Phone Ngoc Fung MD Primary [...] Garduno. I have send a message to operations scheduler to cancer the colonoscopy with Dr. [...] including as outpatient. - per discussion with [facility], can resume aspirin and AC instead [...] by anesthesia acute pain service. Add hydromorphone BUSINESS ASST to current analgesic regimen -Mobilize out of [...] although he does follow with GI at [place] and records are incomplete in our system. [...] drink = 0.6 oz pur e alcohol) [facility] Utilities Answer Date Recorded In the [...] Info) Description 11/28/2025 10:15 AM EDT Appointment [facility] ACC Vascular Lab [address] [place] [address] Dayo Abdul MD [address] [place] [address] 11/28/2025 11:20 AM EDT Follow-Up [facility] Building Vascular Surgery [address] [place] [address] Seat Covers Trimmer: Dayo Wynn MD [address] [place] [address] Health Maintenance Due Date Last Done Comments [...] of 2) 2025 COVID-19 Vaccine (1 - 2024-2 6 season) 2025 Influenza Vaccine (#1) 2025 DTaP,Tdap,and Td Vaccines (2 - Td or Tdap) 11/30/2031 11/29/2021 Colon Cancer Screening 08/15/2033 Colonoscopy 08/15/2033 08/15/2023, 09/2022, 08/15/2023 RSV Vaccine (60+ years old a nd patients) (1 - 1-dose 75+ series) 2050 Abdominal Aortic Aneurysm (A AA) Screening Completed 11/22/2024, 06/14/2024, 03/08/2024, Additional history exists Medical Devices Implanted Type [facility] Coder Device Identifier Shelf Expiration Date Model / Serial / Lot Graft Vascular Hemashield 8mm X 60cm - [id number] - [id number] Implanted:Qty: 1 on 05/07/2024 by Dayo Abdul MD at [facility] Graft N/A: Aorta Drizly [facility] 11/22/2027 [id number] / [id number] / System Closure And Repair Suture-Mediated Perclose Prostyle - [id number] - [id number] Implanted:Qty: 1 on 10/31/2022 by Dayo Abdul MD at [facility] Implant Right: Groin [employer] [id number] 07/15/2024 [id number] / [id number] / [id number] System Closure And Repair Suture-Mediated Perclose Prostyle - [id number] - [id number] Implanted:Qty: 1 on 10/31/2022 by Dayo Abdul MD at [facility] Implant Right: Groin [employer] [id number] 07/15/2024 [id number] / [id number] / [id number] Device Closure Vascular Plug 6fr Angio-Seal Vip - S0 - [id number] Implanted:Qty: 1 on 02/13/2023 by Dayo Abdul MD at [facility] Implant Right: Groin [employer] [id number] 10/15/2023 [id number] / 0 / [id number] System Closure And Repair Suture-Mediated Perclose Prostyle - [id number] Implanted:Qty: 2 on 07/20/2023 by Santos Willis MD at [facility] Implant [employer] 03/14/2025 [id number] 3 / [id number] System Closure And Repair Suture-Mediated Perclose Prostyle - [id number] Implanted:Qty: 3 on 02/14/2024 by Santos Willis MD at [facility] Implant Right: Groin [employer] 10/15/2025 [id number] / / [id number] System Stent Vascular Self Expanding Over The Wire Sterile Innova [id number] - S0 - [id number] Implanted:Qty: 1 on 10/31/2022 by Dayo Abdul MD at [facility] Stent N/A: Abdomen [employer] [id number] 12/06/2026 [id number] / 0 / [id number] Stent Icast Covered [id number] - [id number] - [id number] Implanted:Qty: 1 on 10/31/2022 by Dayo Abdul MD at [facility] Stent N/A: Abdomen Drizly [facility] [id number] 07/18/2025 [id number] / [id number] / Stent Icast Covered 7mm X 22mm X 120cm - [id number] - [id number] Implanted:Qty: 1 on 07/20/2023 by Santos Willis MD at [facility] Stent Drizly [facility] 05/30/2026 [id number] / [id number] / Description:Implanted in SMA Graft Stent Vbx Balloon Expandable Endoprosthesis Reduced Profile [id number] 11mm Max Post-Dilation With Heparin Catheter [id number] Pollock Viabahn - [id number] - [id number] Implanted:Qty: 1 on 02/14/2024 by Santos Willis MD at [facility] Stent N/A: Arterial W L GORE 08/14/2026 [id number] / [id number] / Description:SMA Procedures * Due to [place] [employer] law, this organization might not be sharing negative HIV tests. Procedure Name Priority Date/Time Associated Diagnosis Comments CT ANGIOGRAM ABDOMEN PELVIS W CONTRAST Routine 11/22/2024 10:02 AM EDT Chronic mesenteric ischemia COLONOSCOPY 08/15/2023 from Last 3 Months or Most Recently Relevant to Health Maintenance Results * Due to [place] [employer] law, this organization might not be sharing [...] to obtain the completed interpretation. Workstation ID: [id number] Up-to-date CT equipment and radiation dose reduction [...] AND SOFT TISSUES: Unremarkable. Resulting Agency Comment [id number] Procedure Note Tam Horne MD - 11/22/2024 [...] possible to obtain thecompleted interpretation. Workstation ID: [id number] Up-to-date CT equipment and radiation dose reduction [...] 1975 Admit Type: Inpatient Age: 48 Room: [place] [address] Gender: Male Note Status: Finalized Attending MD: [...] the physician, the nurse, theanesthetist and the firestopper technician in the pre-procedure area in the [...] Documents on File Type Date Recorded Patient Dna Sequencing Associate Expl anation Health Care Proxy 07/24/2023 [...] Zeng Spouse Health Care Agent Care Teams Elevator Operator Freight Relationship Specialty Start Date End Date Ngoc Fung MD [address] [place] [address] PCP - General Internal Medicine 09/19/22
--- OUTSIDE RECORDS SUMMARY | 2025-07-20 13:02 | XMS_ITS | Clinical Summary ---
Author Organization [facility] Address [address] [place] [address] Phone Care Team Providers Care Spool Cleaner Hand Name Role Phone Pcp, Unknown Primary Care [...] file Medical Devices Not on file Insurance [facility] HMO Member Subscriber Plan / Payer (Ef fective 2018-Present) Name:Seth Whelan Relation to Subscriber:Self Name:Seth Whelan Payer ID:Not on file Type:HMO Address: [place] [id number] [facility] ACO [facility] HMO [facility] ACO [facility] Member Subscriber Plan / Payer (Ef fective 2018-Present) Name:Seth Whelan Relation to Subscriber:Self Name:Seth Whelan Payer ID:Not on file Type:O Address: [address] ACO [facility] HMO [employer]CO [facility] Member Subscriber Plan / Payer (Ef fective 2018-Present) Name:Seth Whelan Relation to Subscriber:Self Name:Seth Whelan Payer ID:Not on file Type:O [address]: [address] [facility] ACO [facility] Member Subscriber Plan / Payer (Ef fective 2018-Present) Name:Seth Whelan Relation to Subscriber:Self Name:Seth Whelan Payer ID:Not on file Type:O [address]: [address] [facility] Member Subscriber Plan / Payer (Ef fective 2018-Present) Name:Seth Whelan Relation to Subscriber:Self Name:Seth Whelan Payer ID:Not on file Type:HMO Address: [address] [place] [address] [facility] HMO [place] [id number] Care Teams Spool Cleaner Hand Relationship Specialty Start Date End Date Pcp, Unknown PCP - General 06/11/22 Additional Source Comments The information contained in this document represents components of the legal health record. It is not the complete legal health record.[facility]
== END 2025-07-20 11:00 | disposition home or self-care (01) ==
LOC: HO.US 10:59
PROVIDERS: PCP Internal Medicine
DX: R20.0 Anesthesia of skin (principal)
CPT/HCPCS: 93925

== ENCOUNTER → 2025-07-20 11:01 | Outpatient (BNV) | payer MEDICARE, MEDICAID, SELFPAY | PROVIDERS: PCP Internal Medicine; Visit Provider Radiology Diagnostic Radiology | DX: I73.9 Peripheral vascular disease, unspecified (principal) | CPT/HCPCS: 93925 ==

== ENCOUNTER 2025-08-26 07:15 | Emergency (ER) | payer MEDICARE, MEDICAID, SELFPAY ==
--- NOTE | ~2025-08-26 | XR_ITS ---
EXAMINATION: XR CHEST CLINICAL INFORMATION: cp COMPARISON: X-ray 06/17/2025 TECHNIQUE: 2 views of the chest were obtained. FINDINGS: The cardiomediastinal silhouette is within normal limits. The lungs are well expanded. There is no focal consolidation, edema, or effusion. No pneumothorax. No acute osseous abnormality. XR/XR chest 2V IMPRESSION: No acute findings Electronically signed by: Servando Morales MD 08/26/2025 07:43 AM EST
--- NOTE | 2025-08-26 07:17 | ECG_ITS ---
Test Reason : cp Blood Pressure : */* mmHG Vent. Rate : 74 BPM Atrial Rate : 74 BPM P-R Int : 108 ms QRS Dur : 86 ms QT Int : 360 ms P-R-T Axes : 71 44 -8 degrees QTcB Int : 399 ms Sinus rhythm with sinus arrhythmia with short MO Possible Left atrial enlargement Low voltage QRS Borderline ECG When compared with ECG of 17-Jun-2025 18:22, No significant change was found Referred By: Generic ED Physician Electronically Signed By: VINAY HER MD
[2025-08-26 07:21] VITALS: BP 165/72; PULSE 65; RESP 18; TEMP 36.5; O2SAT 100; BMI 19.3
[2025-08-26 07:37] LABS: MANUAL DIFF FLAG NO
[2025-08-26 07:38] LABS: Hematocrit 39.2 % (42.0-52.0); Hemoglobin 12.1 g/dl (14.0-18.0); Imm Gran Abs Auto 0.02 X10*3/uL (0.00-0.03); Imm Gran Pct Auto 0.3 % (0.0-0.4); Lymphocytes Absolute Auto 1.8 X10*3/uL (1.2-4.9); Mean Corpuscular HGB Conc 30.9 g/dl (31.0-36.0); Mean Corpuscular Hemoglobin 25.3 pg (27.0-33.0); Mean Corpuscular Volume 81.8 fL (80.0-98.0); NRBC Abs Auto 0.000 X10*3/uL (0.0-0.012); NRBC Pct Auto 0.0 /100WBC (0.0-0.2); Platelet Count 298 X10*3/uL (160-400); Red Blood Count 4.79 X10*6/uL (4.60-5.80); White Blood Count 7.1 X10*3/uL (4.8-10.8)
[2025-08-26 08:04] LABS: Alanine Aminotransferase 21 U/L (0-40); Albumin Level 4.4 g/dL (3.5-5.0); Alkaline Phosphatase 76 U/L (39-117); Anion Gap 13 (12-20); Aspartate Amino Transferase 22 U/L (5-37); Blood Urea Nitrogen 8 mg/dL (9-16); Calcium 9.4 mg/dL (8.4-10.2); Carbon Dioxide 24 mmol/L (22-29); Chloride 104 mmol/L (96-108); Creatinine Clr Calc Pharmacy 92.6; Estimated Glomerular Filt Rate > 60; Potassium 3.5 mmol/L (3.3-5.1); Sodium 137 mmol/L (135-145); Total Protein 7.2 g/dL (6.5-8.0)
[2025-08-26 08:12] LABS: Troponin-I High Sensitivity < 2.7 ng/L (<3.5-35.0)
--- NOTE | 2025-08-26 08:36 | ED.CHESTPAIN ---
HPI - Chest Pain General Chief Complaint: Chest Pain Stated Complaint: Chest Pain Time Seen by Provider: 08/26/25 08:36 Source: patient Mode of arrival: ambulatory Limitations: no limitations History of Present Illness ED Provider: HPI narrative: 24-year-old male presents to the ED for evaluation of intermittent mid-sternal chest pain that began approximately two days ago. The pain comes and goes without clear precipitating factors; this morning the pain awakened him and prompted today?s visit. He reports it resembles his prior acid-reflux pain. He denies any clear alleviating factors. Associated symptoms include intermittent nausea with a sensation of impending vomiting, though he has had no actual emesis. He denies hematemesis, hematochezia, or melena. pain is nonradiating midsternal, patient asked to be treated with morphine. Past surgical history is significant for a chronically clotted SMA stent (superior mesenteric artery stent), appendectomy, and partial colectomy. He reports no other surgeries. Current home medications: low-dose aspirin 81 mg daily, sucralfate, and ?Lamprosol? (patient-reported PPI prescribed by Dr. Garduno). Social history: does not smoke cigarettes; smokes marijuana. Drinks coffee daily. Related Data Previous Rx's ?Medication ?Instructions ?Recorded aspirin 81 mg tablet,delayed 81 mg PO DAILY #90 tabs 09/10/24 release lansoprazole 30 mg capsule,delayed 30 mg PO DAILY #90 caps 03/07/25 release ferrous sulfate 325 mg (65 mg 325 mg PO DAILY 90 days #90 tabs 04/05/25 iron) tablet atorvastatin 10 mg tablet (Lipitor) 10 mg PO DAILY #90 tabs 06/03/25 ondansetron 4 mg disintegrating 4 mg PO Q6H PRN nausea and 06/17/25 tablet vomiting #10 tabs ondansetron 4 mg disintegrating 4 mg PO Q8H PRN nausea and 08/26/25 tablet vomiting #4 tabs sucralfate 1 gram tablet (Carafate) 1 g PO Q6H 7 days #28 tabs 08/26/25 Allergies Allergy/AdvReac Type Severity Reaction Status Date / Time No Known Allergies Allergy Verified 08/26/25 07:24 Review of Systems Constitutional: Constitutional: Reports as per [facility] Past Medical History Medical History Cholelithiasis AVM (arteriovenous malformation) of duodenum, acquired with hemorrhage Vitamin D deficiency Mesenteric artery thrombosis CAD (coronary artery disease) Hyperlipidemia 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 Maternal Aunt No problems noted. Social History Social History Household Members: Spouse Housing: Apartment Do you presently have visiting nurse or other home services: No Alcohol intake: never Patient Tobacco Use Status: Former Tobacco user Tobacco use type: Cigar Years Smoked: 3 Smoked in Last 30 Days: No e-Cigarette/Vaping Use: Never Used Use of substances other than those prescribed or required for medical reasons: Yes Substance Use Type: Marijuana Advance Directives: Yes Advance Directives on File: Yes Advance Directives Date on File: 05/19/24 service: No Current occupational status: disabled Current occupational exposures/hazards: No Cognitive needs: No Hearing needs: No Vision needs: No Physical Exam Exam: Exam: alert and oriented x4, speaking in full sentences, generally well-appearing. No cranial nerve deficits noted. Skin without jaundice; no scleral icterus. Cardiovascular: tachycardic at 102 bpm, regular rhythm, no murmurs. Respiratory: lungs clear to auscultation bilaterally. Abdomen: normoactive bowel sounds, no abnormal findings.well healed prior mid abdominal scar, no pulsatile masses no jaundice, no scleral icterus no edema of the bilateral lower extremities, distal pulses +2 bilateral upper and lower extremities Vital Signs: Vital Signs: Last Vital Signs Temp 97.7 F 08/26/25 07:21 Pulse 65 08/26/25 07:21 Resp 18 08/26/25 07:21 BP 165/72 H 08/26/25 07:21 Pulse Ox 100 12/12/25 07:21 O2 Del Method Room Air 08/26/25 07:21 BMI result Body Mass Index 19.3 Medical Decision Making Medical Decision Making [facility] Narrative: 9:33 AM 08/26/2025 (Dr. 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, is that he requested narcotics by name on my evaluation and prior to me seeing him with the nurse, I discussed with the patient that I do not have any issues treating his pain but narcotic use in the ER for pain control is not something he should expect, overall did not feel further imaging such as CT chest or angio of the abdomen is indicated he is not presenting with severe pain out of proportion to exam to suspect ischemic colitis, he has got chronically clotted off stent of his SMA, we discussed dietary changes, other considerations as below I we will medicate him and if workup is reassuring anticipating discharge, there was no reports of obstipation to suspect SBO Differential Diagnosis Differential Diagnoses: The differential diagnosis associated with the presentation includes Cardiac etiologies: Acute coronary syndrome is less likely given the patient's age and lack of classic risk factors, but must be considered due to tachycardia and history of vascular intervention. Myocarditis or pericarditis may present with chest pain and tachycardia buthe is not expereinceing that no no risk factors such as recent viral infection Gastrointestinal etiologies: Gastroesophageal reflux disease (GERD) is suggested by the pain's resemblance to prior acid reflux and response to acid suppression therapy. Peptic ulcer disease and gastritis are possible, especially with intermittent nausea and history of partial colectomy. Esophageal spasm or motility disorders may also cause mid-sternal chest pain.Boerhaave syndrome is a consideration as well he has had no forceful vomiting, chest x-ray without free air Vascular etiologies: Mesenteric ischemia is a consideration given the history of chronically clotted SMA stent and prior abdominal surgeries, though absence of GI bleeding and normal abdominal exam make acute ischemia less likely. Aortic pathology (e.g., dissection) is less probable in the absence of severe pain, hypotension, or focal deficits. Pulmonary etiologies: Pulmonary embolism is less likely given normal respiratory exam and lack of risk factors, but should be considered in the context of tachycardia and vascular history. Other etiologies: Musculoskeletal pain is possible but less likely given the intermittent nature and lack of reproducibility on exam. Anxiety or panic disorder may contribute, but organic causes must be excluded first. Admission/Observation Consideration of admission/observation: Escalation of care including admission/observation considered Lab Data MDM Lab Attestation statement: I reviewed the patient's lab results. 08/26/25 07:31 08/26/25 07:31 Labs: Lab Results 08/26/25 Range/Units 07:31 WBC 7.1 (4.8-10.8) X10*3/uL RBC 4.79 (4.60-5.80) X10*6/uL Hgb 12.1 L (14.0-18.0) g/dl Hct 39.2 L (42.0-52.0) % MCV 81.8 (80.0-98.0) fL MCH 25.3 L (27.0-33.0) pg MCHC 30.9 L (31.0-36.0) g/dl RDW 19.2 H (11.0-16.0) % Plt Count 298 (160-400) X10*3/uL MPV 9.1 L (9.4-12.4) fL Immature Gran % (Auto) 0.3 (0.0-0.4) % Neut % (Auto) 61.0 (45-73) % Lymph % (Auto) 25.1 (20-40) % Cocke % (Auto) 12.1 H (2-11) % Eos % (Auto) 0.8 (0-4) % Baso % (Auto) 0.7 (0-2) % Lymph # (Auto) 1.8 (1.2-4.9) X10*3/uL Cocke # (Auto) 0.9 (0.1-1.2) X10*3/uL Eos # (Auto) 0.1 (0.0-0.4) X10*3/uL Baso # (Auto) 0.1 (0.0-0.2) X10*3/uL Abs Immat Gran (auto) 0.02 (0.00-0.03) X10*3/uL Absolute Neuts (auto) 4.3 (2.0-8.3) x10*3/uL Absolute Nucleated RBC 0.000 (0.0-0.012) X10*3/uL Nucleated RBC % (auto) 0.0 (0.0-0.2) /100WBC Sodium 137 (135-145) mmol/L Potassium 3.5 (3.3-5.1) mmol/L Chloride 104 (96-108) mmol/L Carbon Dioxide 24 (22-29) mmol/L Anion Gap 13 (12-20) BUN 8 L (9-16) mg/dL Creatinine 0.87 (0.5-1.4) mg/dL Estim Creat Clear Calc 92.6 Estimated GFR > 60 Random Glucose 227 H (60-115) mg/dL Calcium 9.4 D (8.4-10.2) mg/dL Total Bilirubin 1.4 H (0.0-1.0) mg/dL AST 22 (5-37) U/L ALT 21 (0-40) U/L Alkaline Phosphatase 76 (39-117) U/L Troponin I High Sens < 2.7 (<3.5-35.0) ng/L Total Protein 7.2 (6.5-8.0) g/dL Albumin 4.4 (3.5-5.0) g/dL Influenza Type A (PCR) NEGATIVE (Negative) Influenza Type B (PCR) NEGATIVE (Negative) RSV RNA Qual (PCR) NEGATIVE (Negative) SARS-CoV-2 RNA (RT-PCR) NEGATIVE (Negative) Independent Interpretation I performed an independent interpretation of an: EKG ( 74 beats per minute otherwise normal ECG without dysrhythmia, AV kaila blocks or ST-T changes to suspect underlying ACS, my independent interpretation) and Plain X-Ray (My independent chest xray interpretation: Lungs: Lungs are clear bilaterally without evidence of focal consolidation, pleural effusion, or pneumothorax. Cardiac silhouette is unremarkable, no obvious mediastinal widening, no obvious bony abnormalities such as fractures. Impression: Normal chest X-r) Radiology Impression Discussion of test interpretation with radiology: I have reviewed the radiologist's reading. Discharge Plan Discharge Clinical Impression: Chest pain, precordial, Nausea, Gastro-esophageal reflux Patient Disposition: Home, Self-Care Additional Instructions: your workup today included chest x-ray,, EKG, cardiac enzymes, read your prior CAT scans, aware of the prior surgical history, all of which has been reassuring, I recommend no caffeine on empty stomach, start her day with a oatmeal and then you can have some coffee, follow up with your GI you seem to be having continued abdominal discomfort due to likely acid reflux despite being on lansoprazole, you may need re-evaluation, endoscopy etc. you also had a viral swab that was negative you did receive medications for pain and stomach upset otherwise any other issues or concerns come back to the ER Prescriptions: New sucralfate [Carafate] 1 gram tablet 1 g PO Q6H 7 Days Qty: 28 0RF ondansetron 4 mg tablet,disintegrating 4 mg PO Q8H PRN (Reason: nausea and vomiting) Qty: 4 0RF No Action aspirin 81 mg tablet,delayed release (DR/EC) 81 mg PO DAILY Qty: 90 1RF lansoprazole 30 mg capsule,delayed release(DR/EC) 30 mg PO DAILY Qty: 90 1RF ferrous sulfate 325 mg (65 mg iron) tablet 325 mg PO DAILY 90 Days Qty: 90 0RF ondansetron 4 mg tablet,disintegrating 4 mg PO Q6H PRN (Reason: nausea and vomiting) Qty: 10 0RF atorvastatin [Lipitor] 10 mg tablet 10 mg PO DAILY Qty: 90 1RF Print Language: Upper Sorbian
[2025-08-26 09:05] LABS: Resp Syncy Virus RNA Qual PCR NEGATIVE (Negative); SARS COV2 PCR INHOUSE NEGATIVE (Negative)
[2025-08-26] MEDS: Magnesium Hydrox/Alum Hydrox 30 ML ORAL.SUSP 15 ML PO (09:32)
[2025-08-26] MEDS: Lidocaine HCl Viscous 2 % 15 ML SOLUTION PO (09:32)
[2025-08-26 09:36] VITALS: BP 133/68; PULSE 65; RESP 14; O2SAT 100
[2025-08-26 10:00] VITALS: BP 132/74; PULSE 69; RESP 21; TEMP 36.9; O2SAT 99
[2025-08-26 10:31] VITALS: BP 132/74; PULSE 69; RESP 21; TEMP 36.9; O2SAT 99
== END 2025-08-26 10:34 | disposition home or self-care (01) ==
PROVIDERS: Emergency Provider Emergency Medicine; PCP Internal Medicine
DX: R07.2 Precordial pain (principal); K21.9 Gastro-esophageal reflux disease without esophagitis; R11.0 Nausea; R00.0 Tachycardia, unspecified; E78.5 Hyperlipidemia, unspecified; F12.90 Cannabis use, unspecified, uncomplicated; Z87.891 Personal history of nicotine dependence; Z79.82 Long term (current) use of aspirin; Z79.02 Long term (current) use of antithrombotics/antiplatelets; Z79.899 Other long term (current) drug therapy; Z03.818 Encounter for observation for suspected exposure to other biological agents ruled out
CPT/HCPCS: 71046; 80053; 84484; 85025; 87637; 93005; 96372; 99284; J2270

== ENCOUNTER → 2025-08-26 07:17 | Outpatient (BNV) | payer MEDICARE, MEDICAID, SELFPAY | PROVIDERS: Emergency Provider Emergency Medicine; PCP Internal Medicine; Visit Provider Internal Medicine Cardiovascular Disease | DX: R07.9 Chest pain, unspecified (principal) | CPT/HCPCS: 93010 ==

== ENCOUNTER 2025-09-05 15:00 | Outpatient (AMB) | payer MEDICARE, SELFPAY ==
--- NOTE | 2025-09-05 15:03 | MHC.PC.OV ---
Vital Signs 09/05/25 15:08 Height 6 ft Weight 157 lb BMI 21.3 BP 110/60 Blood Pressure Location Rt brachial Position Sitting Respiration 16 Pulse 82 Pulse Source Pulse Oximeter Temp 98.6 F Temp Source Oral Pulse Oximetry (%) 98 Oxygen Delivery Method Room Air Intake Visit Reasons: PE Intake Note: Pt is here today for his PE: last colonoscopy 02/02/24 [place]boning Team Leader Required: No Allergies No Known Allergies Allergy (Verified 09/05/25 15:40) Medication List - Last Reconciled 09/05/25 by Ngoc Fung MD aspirin 81 mg PO DAILY atorvastatin (Lipitor) 10 mg PO DAILY ferrous sulfate 325 mg PO DAILY 90 days lansoprazole 30 mg PO DAILY ondansetron 4 mg PO Q8H PRN sucralfate (Carafate) 1 g PO Q6H 7 days Tobacco use date assessed: 09/05/25 Dental Screening Dental Screen Date: 09/05/25 Did you have a dental visit in the last 12 months?: Yes Did you have a dental problem in the last 6 months where you did not have access to dental care?: No Was dental information given to patient?: Patient has dentist HPI PE HPI Details The patient is a 50 year old male presenting for a physical exam. He has a history of anemia, and his CBC has been improving, with counts rising from 9.5 and 11 to 12 at his last check on August 26. He continues to take iron supplements, which sometimes cause constipation and hard stools. Denies any chest pain, no lightheadedness palpitations reported He has hyperlipidemia, currently on atorvastatin. He takes lansoprazole for acid reflux and has been counseled to avoid triggers like hot chocolate, which he admits to drinking occasionally. He has a known history of gallstones, but has not had his gallbladder removed as it was deemed unnecessary after testing. He underwent a HIDA scan, and the recommendation was observation.. Recent labs from the ER showed a slightly elevated bilirubin of 1.4. She was diagnosed peripheral arterial disease mainly in the left leg, with an occluded dorsalis pedis artery. He has a cardiology appointment on September 13 to follow up on a CT scan result. He sees a vascular specialist in [place] for a potential bypass. His past medical history includes a resolved arteriovenous malformation (AVM) , is no longer on Coumadin, but takes aspirin 81 mg. He is up-to-date with his colonoscopy, last done in 2023. [facility] Medical History (Updated 09/05/25 @ 15:49 by Ngoc Fung MD) PAD (peripheral artery disease) Cholelithiasis AVM (arteriovenous malformation) of duodenum, acquired with hemorrhage Vitamin D deficiency Mesenteric artery thrombosis CAD (coronary artery disease) Hyperlipidemia Superior mesenteric artery stenosis Celiac artery stenosis Vaccine refused by patient (~09/05/23) Cigar smoker unmotivated to quit Chronic vascular insufficiency of intestine Impaired fasting glucose Diarrhea Granular cell tumor Chronic GERD Surgical History H/O heart artery stent History of esophagogastroduodenoscopy (EGD) Hx of colectomy Hx of appendectomy Hx of colonoscopy Family History Maternal Aunt No problems noted. Maternal Aunt No problems noted. Social History Household Members: Spouse Housing: Apartment Do you presently have visiting nurse or other home services: No Alcohol intake: never Patient Tobacco Use Status: Former Tobacco user Tobacco use type: Cigar Years Smoked: 3 e-Cigarette/Vaping Use: Never Used Substance Use Type: Marijuana Advance Directives Date on File: 05/19/24 service: No Current occupational status: disabled Current occupational exposures/hazards: No Cognitive needs: No Hearing needs: No Vision needs: No Questionnaire PHQ-9 Over the last 2 weeks, how often have you been bothered by any of the following problems? 1. Little interest or pleasure in doing things: not at all 2. Feeling down, depressed, or hopeless: not at all 3. Trouble falling or staying asleep, or sleeping too much: not at all 4. Feeling tired or having little energy: several days 5. Poor appetite or overeating: not at all 6. Feeling bad about yourself - or that you are a failure or have let yourself or your family down: several days 7. Trouble concentrating on things, such as reading the newspaper or watching television: several days 8. Moving or speaking so slowly that other people could have noticed. Or the opposite - being so fidgety or restless that you have been moving around a lot more than usual: several days 9. Thoughts that you would be better off or of hurting yourself in some way: not at all Total score: 4 Depression Screening Interpretation: Negative Depression Screening Done: Yes 92060 - PHQ-9 Billing: Yes Source: Developed by Drs. Greg Hernandez, Whitlye Park, Dustin Ann and colleagues, with an educational hans from [employer]. Thrive Questionnaire Date Thrive assessed: 09/05/25 I am a: Patient What is your living situation today?: I choose not to answer this question Within the past 12 months, did the food you bought not last and you didn't have the money to get more?: Never true Within the past 12 months, did you worry whether your food would run out before you got money to buy more?: I choose not to answer this question Do you have trouble paying for medicines?: No Do you have trouble getting transportation to medical appointments?: No Do you have trouble paying your heating and electricity bill?: Yes Do you have trouble taking care of your child, family member or friend?: Yes Do you have trouble with day-to-day activities such as bathing, preparing meals, shopping, managing finances, etc.?: Yes Are you currently unemployed and looking for a job?: I choose not to answer this question Are you interested in more education?: Yes Please select the resources that you would like help with: Food Currently or been in a relationship where the following occur: No concerns reported THRIVE Score: 1 AUDIT C Alcohol Use Questionnaire (AUDIT-C) 1. How often do you have a drink containing alcohol?: Never Total Score: 0 KAMILA-7 AMB Questionnaire KAMILA-7 Date KAMILA - 7 assessed: 09/05/25 Feeling nervous, anxious, or on edge: 1 = Several days Not being able to stop or control worryin = Not at all Worrying too much about different things: 1 = Several days Trouble relaxin = Several days Being so restless that it is hard to sit still: 1 = Several days Becoming easily annoyed or irritable: 1 = Several days Feeling afraid as if something awful might happen: 1 = Several days Total KAMILA-7 score (0-4 normal; 5-9 mild; 10-14 moderate; 15-21 severe): 6 Source: Developed by Drs. Greg Hernandez, Whitley Park, Dustin Ann and colleagues, with an educational hans from [employer]. KAMILA-7 Assessment Billing KAMILA-7 Assessment Tool: KAMILA-7 Assessment 13318 Review of Systems Const Denies daytime sleepiness, Denies difficulty sleeping and Denies weakness Eyes Denies change in vision ENT Reports no additional complaints Card Denies chest pain, Denies rapid heart rate, Denies irregular heart rhythm, Denies leg edema, Denies lightheadedness, Denies palpitations and Denies dyspnea Resp Denies cough and Denies dyspnea GI Reports no additional complaints and Denies hematochezia Reports no additional complaints Musc Denies abnormal gait and Denies muscle weakness Neuro Denies abnormal gait and Denies weakness Psych Reports no additional complaints Endo Denies palpitations Yared/Lymph Reports no additional complaints Aller/Immun Reports no additional complaints Physical exam (Primary Care) Vital Signs: Last Vital Signs Temp 98.6 F 09/05/25 15:08 Pulse 82 09/05/25 15:08 Resp 16 09/05/25 15:08 BP 110/60 09/05/25 15:08 Pulse Ox 98 09/05/25 15:08 Oxygen Delivery Method Room Air 09/05/25 15:08 BMI result Body Mass Index 21.3 Tobacco/Smoking Status: Tobacco use Status Tobacco use date assessed 09/05/25 09/05/25 15:10 Patient Tobacco Use Status Former Tobacco user 09/05/25 15:04 Tobacco use type Cigar 09/05/25 15:04 e-Cigarette/Vaping Use Never Used 09/05/25 15:04 PHQ-9: PHQ-9 Score PHQ-9: Total score 4 09/12/25 01:28 Depression Screening Interpretation: Negative Thrive Assessment: Date of Thrive Assessment Date Thrive assessed 09/05/25 09/05/25 15:10 Currently or been in a relationship where the following occur: No concerns reported Const General: comfortable, no acute distress and alert Orientation/consciousness: patient oriented x3 HENMT General nose exam: Normal external nose present Face and sinus: Yes face symmetric Mouth: Normal oral and palatal mucosa present, oropharynx normal and moist mucous membranes Eyes General: appearance normal, both eyes and all related structures Periorbital: periorbital findings normal Sclerae: sclerae normal Pupils: Equal, round and reactive pupils present EOM: EOMs intact bilaterally Neck Neck: Yes full ROM, Yes no lymphadenopathy and Yes supple Chest Chest palpation & inspection: normal inspection of the chest Resp Auscultation: clear to auscultation bilaterally Cardio Rate: regular rate Rhythm: regular rhythm Heart sounds: S1 normal heart sound present and S2 normal heart sound present GI Other: healed surgical scar on abdomen Palpation (GI): Soft to palpation, nontender, no guarding and no masses Auscultation: normal bowel sounds General: Yes no CVA tenderness Back/Spine/Pelvis Back: no CVA tenderness Skin General skin exam: no rashes or lesions noted Neuro General: patient oriented x3, gait normal, tone normal, moves all extremities, Normal light touch and pain sensation, no focal motor deficits and CN's II-XI intact bilaterally Cranial nerves: Yes Equal, round and reactive pupils present Extrem Other: no palpable pulse over left dorsalis pedis artery. No tenderness to palpation of the left lower extremity. General: Yes full ROM, Yes no joint enlargement, Yes no clubbing, cyanosis or edema, Yes no calf tenderness and Yes normal gait Psych Appearance: grossly normal and well kempt Mental Status: mental status grossly normal Speech and movement: Normal speech and movement present Affect: normal affect Results Reviewed Results Reviewed: Name: Seth Whelan Age/Sex: 50/M : 1975 Unit#: [id number] Attend Dr: Mike Mora DO Re08/26/25 Status: DEP ER Location: .ED Disch: SPEC : [id number] STEVE: 08/26/25 STATUS: COMP REQ : [id number] RECD: 08/26/[address]: Mike Mora DO COMP: 08/26/25 ENTERED: 08/26/[address]: Ngoc Fung MD [facility] ED Physician ORDERED: CMP Test Result Flag Reference Sodium 137 135-145 mmol/L Potassium 3.5 3.3-5.1 mmol/L CL 104 96-108 mmol/L CO2 24 22-29 mmol/L Gap 13 12-20 BUN 8 L 9-16 mg/dL Creat 0.87 0.5-1.4 mg/dL Estimated CrCl 92.6 eGFR (calculated from the MDRD study equation) and eCrCl (calculated from the Cockcroft-Gault equation) are based on different parameters and may not yield comparable results. If eCrCl result is absurd, please check patient's height/weight. eGFR > 60 Chronic Kidney Disease: Estimated GFR < 60 mL/min/1.73m2 Severe Kidney Disease: Estimated GFR < 15 mL/min/1.73m2 Glucose, Random 227 H 60-115 mg/dL CA 9.4 # 8.4-10.2 mg/dL Total Bili 1.4 H 0.0-1.0 mg/dL AST (GOT) 22 5-37 U/L ALT (GPT) 21 0-40 U/L Protein, Total 7.2 6.5-8.0 g/dL Alb 4.4 3.5-5.0 g/dL Alk Phos 76 39-117 U/L Name: Seth Whelan Age/Sex: 50/M : 1975 Unit#: [id number] Attend Dr: Mike Mora DO Re08/26/25 Status[facility] SPEC : [id number] STEVE: 08/26/25 STATUS: COMP REQ : [id number] RECD: 08/26/[address]: Mike Mora DO COMP: 08/26/25 ENTERED: 08/26/25 [facility] DR: Ngoc Fung MD [facility] ED Physician ORDERED: CBC Auto Diff Test Result Flag Reference WBC 7.1 4.8-10.8 X10*3/uL RBC 4.79 4.60-5.80 X10*6/uL HGB 12.1 L 14.0-18.0 g/dl HCT 39.2 L 42.0-52.0 % MCV 81.8 80.0-98.0 fL MCH 25.3 L 27.0-33.0 pg MCHC 30.9 L 31.0-36.0 g/dl RDW 19.2 H 11.0-16.0 % PLT 298 160-400 X10*3/uL MPV 9.1 L 9.4-12.4 fL Neut Pct Auto 61.0 45-73 % ImGran Pct Auto 0.3 0.0-0.4 % Lymp Pct Auto 25.1 20-40 % [place] Pct Auto 12.1 H 2-11 % Eos Pct Auto 0.8 0-4 % Baso Pct Auto 0.7 0-2 % NRBC Pct Auto 0.0 0.0-0.2 /100WBC ANC Neut Abs # 4.3 2.0-8.3 x10*3/uL ImGran Abs Auto 0.02 0.00-0.03 X10*3/uL Lymph Abs Auto 1.8 1.2-4.9 X10*3/uL [place] Abs Auto 0.9 0.1-1.2 X10*3/uL Eos Abs Auto 0.1 0.0-0.4 X10*3/uL Baso Abs Auto 0.1 0.0-0.2 X10*3/uL NRBC Abs Auto 0.000 0.0-0.012 X10*3/uL Coding Level of Care Code Est Pt Prev Care 40-64y(94495) Diagnoses Annual visit for general adult medical examination with abnormal findings Z00. Hyperlipidemia E78.5 Iron deficiency anemia D50.9 Vitamin D deficiency E55.9 Calculus of gallbladder with chronic cholecystitis without obstruction K80.10 Biliary obstruction: without biliary obstruction Cholecystitis acuity: chronic Cholecystitis presence: with cholecystitis Cholelithiasis location: gallbladder Impaired fasting glucose R73.01 PAD (peripheral artery disease) I73.9 Vaccine refused by patient Z28.20 Additional Codes KAMILA-7 Assessment Billing - KAMILA-7 Assessment Tool: KAMILA-7 Assessment 61188 ([id number]) PHQ-9 - 87044 - PHQ-9 Billing: Yes ([id number]) Assessment & Plan Assessment & Plan (1) Annual visit for general adult medical examination with abnormal findings: Code(s): Z00.01 - Encounter for general adult medical examination with abnormal findings Plan: Will check appropriate labs. Recommended dental visit every 6 months and regular eye exams, at least every 2 years. Take adequate calcium in diet and vitamin-D 3 at 2000 IU per cap once a day, in addition to weight-bearing exercises to help maintain good muscle tone and weight control. Instructed to do self-testicular exam check for any mass. Had a screening colonoscopy done in 2023. Patient does not want to get any vaccinations (2) Hyperlipidemia: Code(s): E78.5 - Hyperlipidemia, unspecified Category: Medical Plan: Fasting lipid panel ordered. Currently on atorvastatin 10 mg daily (3) Iron deficiency anemia: Code(s): D50.9 - Iron deficiency anemia, unspecified Category: Medical Plan: Hemoglobin and hematocrit is improving on last labs. Continue they supplements. A CBC and iron studies will be ordered for mid-September Dietary counseling on iron-rich foods was provided.Will check (4) Vitamin D deficiency: Code(s): E55.9 - Vitamin D deficiency, unspecified Category: Medical Plan: Will check vitamin-D level. Currently not on any vitamin D3 supplements , advised to start taking [id number]-[id number] vitamin D3 at 2000 units daily (5) Cholelithiasis: Code(s): K80.20 - Calculus of gallbladder without cholecystitis without obstruction Category: Medical Qualifiers: Biliary obstruction: without biliary obstruction Cholecystitis acuity: chronic Cholecystitis presence: with cholecystitis Cholelithiasis location: gallbladder Qualified Code(s): K80.10 - Calculus of gallbladder with chronic cholecystitis without obstruction Plan: Currently asymptomatic, already seen by General surgery, who advised observation for now. (6) Impaired fasting glucose: Code(s): R73.01 - Impaired fasting glucose Category: Medical Plan: Your previous fasting blood sugars were elevated above 100 mg/dL. Impaired glucose metabolism increases the risk for developing diabetes mellitus type 2, as well as heart attack and stroke later on. Lifestyle changes that promotes weight loss, healthy eating habits, and regular exercise are important, and can prevent the progression to diabetes (7) PAD (peripheral artery disease): Code(s): I73.9 - Peripheral vascular disease, unspecified Category: Medical Plan: Has an appointment with vascular surgeon in booster. Strongly advised to stop smoking cigars (8) Vaccine refused by patient: Onset Date: ~09/05/23 Code(s): Z28.20 - Immunization not carried out because of patient decision for unspecified reason Category: Medical Plan: Patient declined all recommended vaccinations Orders: Orders Lipid Panel 09/24/25 D50.9 - Iron deficiency anemia, unspecified, E55.9 - Vitamin D deficiency, unspecified, E78.5 - Hyperlipidemia, unspecified, K80.10 - Calculus of gallbladder with chronic cholecystitis without obstruction Basic Metabolic Panel Fasting 09/24/25 D50.9 - Iron deficiency anemia, unspecified, E55.9 - Vitamin D deficiency, unspecified, E78.5 - Hyperlipidemia, unspecified, K80.10 - Calculus of gallbladder with chronic cholecystitis without obstruction Vitamin D 25-OH Total 09/24/25 D50.9 - Iron deficiency anemia, unspecified, E55.9 - Vitamin D deficiency, unspecified, E78.5 - Hyperlipidemia, unspecified, K80.10 - Calculus of gallbladder with chronic cholecystitis without obstruction Complete Blood Count Auto Diff 09/24/25 D50.9 - Iron deficiency anemia, unspecified, E55.9 - Vitamin D deficiency, unspecified, E78.5 - Hyperlipidemia, unspecified, K80.10 - Calculus of gallbladder with chronic cholecystitis without obstruction Ferritin 09/24/25 D50.9 - Iron deficiency anemia, unspecified, E55.9 - Vitamin D deficiency, unspecified, E78.5 - Hyperlipidemia, unspecified, K80.10 - Calculus of gallbladder with chronic cholecystitis without obstruction IRON PROFILE 09/24/25 D50.9 - Iron deficiency anemia, unspecified, E55.9 - Vitamin D deficiency, unspecified, E78.5 - Hyperlipidemia, unspecified, K80.10 - Calculus of gallbladder with chronic cholecystitis without obstruction Hemoglobin A1c 09/05/25 R73.01 - Impaired fasting glucose Medications: Refilled ondansetron 4 mg PO Q8H PRN 20 tabs 0RF nausea and vomiting
[2025-09-05 15:08] VITALS: BP 110/60; PULSE 82; RESP 16; TEMP 37; O2SAT 98; BMI 21.3
--- OUTSIDE RECORDS SUMMARY | 2025-09-05 18:17 | XMS_ITS | Encounter Summary ---
Author Organization [facility] Address [address] [place] [address] Care Team Providers Care Marker Delivery Name Role Phone Ngoc Fung MD Primary Care Provider Reason for Visit * Reason Comments Med Change Request Encounter Details Date Type Department Care Team (Late st Contact Info) Description 09/11/2023 Refill [facility] [address] [place] [address] Gina Wyatt, DO [address] [place] [address] Social History Tobacco Use Types Packs/Day Years [...] [facility] ACC Vascular Lab [address] [place] [address] Dayo Abdul MD [address] [place] [address] 11/28/2025 11:20 AM EDT Follow-Up [facility] Building Vascular Surgery [address] [place] [address] Community Health Program Representative: Dayo Wynn MD [address] [place] [address] [phone] documented as of this encounter Visit Diagnoses Not on filedocumented in this encounter Care Teams Marker Delivery Relationship Specialty Start Date End Date Ngoc Fung MD [address] [place] [address] PCP - General Internal Medicine 09/19/22 documented as of this encounter
--- OUTSIDE RECORDS SUMMARY | 2025-09-05 18:17 | XMS_ITS | Encounter Summary ---
Author Organization [facility] Address [address] [place] [address] Care Team Providers Care Integrated Pest Management Technician Name Role Phone Ngoc Fung MD Primary Care Provider Reason for Visit * Reason Comments Med Change Request Encounter Details Date Type Department Care Team (Late st Contact Info) Description 08/12/2023 Refill [facility] [address] [place] [phone] Len Davis MD [address] [facility] [place] [address] Social History Tobacco Use Types Packs/Day Years [...] encounter Miscellaneous Notes * Telephone Encounter - eLn Davis MD - 08/15/2023 9:18 AM EST Pt is readmitted to hospital documented in this encounter Plan of Treatment Upcoming Encounters Date Type Department Care Team (Late st Contact Info) Description 11/28/2025 10:15 AM EDT Appointment [facility] ACC Vascular Lab [address] [place] [address] Dayo Abdul MD [address] [place] [phone] 11/28/2025 11:20 AM EDT Follow-Up [facility] Vascular Surgery [address] [place] [phone] Relationship Manager: Dayo Wynn MD [address] [place] [phone] documented as of this encounter Visit Diagnoses Not on filedocumented in this encounter Care Teams Integrated Pest Management Technician Relationship Specialty Start Date End Date Ngoc Fung MD [address] [place] [address] PCP - General Internal Medicine 09/19/22 documented as of this encounter
--- OUTSIDE RECORDS SUMMARY | 2025-09-05 18:17 | XMS_ITS | Encounter Summary ---
Author Organization [facility] Address [address] [place] [address] Care Team Providers Care Technical Support Analyst Name Role Phone Ngoc Fung MD Primary Care Provider Encounter Details Date Type Department Care Team (Late st Contact Info) Description 11/07/2022 Orders Only [address] [address] Selam Hinojosa, DIELECTRIC MACHINE OPERATOR [address] [place] [address] Social History Tobacco Use Types Packs/Day Years [...] Info) Description 11/28/2025 10:15 AM EDT Appointment [facility] ACC Vascular Lab [address] [place] [address] Dayo Abdul MD [address] [place] [address] 11/28/2025 11:20 AM EDT Follow-Up [facility] Building Vascular Surgery [address] [place] [address] Insurance Adjuster: Dayo Wynn MD [address] [place] [phone] documented as of this encounter Visit Diagnoses Not on filedocumented in this encounter Care Teams Technical Support Analyst Relationship Specialty Start Date End Date Ngco Fung MD [address] [place] [address] PCP - General Internal Medicine 09/19/22 documented as of this encounter
--- OUTSIDE RECORDS SUMMARY | 2025-09-05 18:17 | XMS_ITS | Clinical Summary ---
Author Organization [facility] Address [address] [place] [address] Phone Care Team Providers Care Timber Robber Name Role Phone Pcp, Unknown Primary Care [...] file Medical Devices Not on file Insurance [facility] HMO Member Subscriber Plan / Payer (Ef fective 2018-Present) Name:Seth Whelan Relation to Subscriber:Self Name:Seth Whelan Payer ID:Not on file Type:HMO Address: [place] [id number] [employer] [facility] [facility] HMO [employer] [facility] Member Subscriber Plan / Payer (Ef fective 2018-Present) Name:Seth Whelan Relation to Subscriber:Self Name:Seth Whelan Payer ID:Not on file Type:O Address: [address] [place] [address] [facility] HMO [facility] Member Subscriber Plan / Payer (Ef fective 2018-Present) Name:Seth Whelan Relation to Subscriber:Self Name:Seth Whelan Payer ID:Not on file Type:O [address]: [address] [facility] Member Subscriber Plan / Payer (Ef fective 2018-Present) Name:Seth Whelan Relation to Subscriber:Self Name:Seth Whelan Payer ID:Not on file Type:O [address]: [address] [facility] Member Subscriber Plan / Payer (Ef fective 2018-Present) Name:Seth Whelan Relation to Subscriber:Self Name:Seth Whelan Payer ID:Not on file Type:HMO Address: [address] [place] [place] [address] [facility] H[place] [id number] Care Teams Timber Robber Relationship Specialty Start Date End Date Pcp, Unknown PCP - General 06/11/22 Additional Source Comments The information contained in this document represents components of the legal health record. It is not the complete legal health record.[facility]
--- OUTSIDE RECORDS SUMMARY | 2025-09-05 18:17 | XMS_ITS | Encounter Summary ---
Author Organization [facility] Address [address] [place] [address] Care Team Providers Care Cullet Crusher And Washer Name Role Phone Ngoc Fung MD Primary Care Provider Encounter Details Date Type Department Care Team (Late st Contact Info) Description 10/31/2022 Orders Only [address] [address] Selam Hinojosa, DIRECTOR PAID MEDIA [address] [place] [address] Claudication of left lower extremity (Primary Dx) [...] Info) Description 11/28/2025 10:15 AM EDT Appointment [facility] ACC Vascular Lab [address] [place], [place] [id number] Dayo Abdul MD [address] [place] [address] 11/28/2025 11:20 AM EDT Follow-Up [facility] Building Vascular Surgery [address] [place] [address] Stenocaptioner: Dayo Wynn MD [address] [place] [address] documented as of this encounter Results * Due to [place] state law, this organization might not be [...] claudication in calves bilaterally us Selam Hinojosa DIRECTOR PAID MEDIA CV VASCULAR PROCEDURES Fin al Result documented in this encounter Visit Diagnoses Diagnosis Claudication of left lower extremity- Primary Claudication of left lower extremity documented in this encounter Care Teams Cullet Crusher And Washer Relationship Specialty Start Date End Date Ngoc Fung MD [address] [place] [address] PCP - General Internal Medicine 09/19/22 documented as of this encounter
--- OUTSIDE RECORDS SUMMARY | 2025-09-05 18:17 | XMS_ITS | Clinical Summary ---
Author Organization [facility] Address [address] [place] [address] Care Team Providers Care Manager Talent Name Role Phone Ngoc Fung MD Primary [...] Garduno. I have send a message to machine rough rounder to cancer the colonoscopy with Dr. Beck [...] including as outpatient. - per discussion with [facility], can resume aspirin and AC instead [...] by anesthesia acute pain service. Add hydromorphone COMMUNITY ENGAGEMENT LEADER to current analgesic regimen -Mobilize out of [...] although he does follow with GI at [facility] and records are incomplete in our system. [...] drink = 0.6 oz pur e alcohol) [facility] Utilities Answer Date Recorded In the [...] Description 11/28/2025 10:15 AM EDT Appointment [facility] ACC Vascular Lab [address] [place] [address] Dayo Abdul MD [address] [place] [address] 11/28/2025 11:20 AM EDT Follow-Up [facility] Building Vascular Surgery [address] [place] [address] Steam Hammer Operator: Dayo Wynn MD [address] [place] [address] Health Maintenance Due Date Last Done Comments Cologuard 1975 FOBT / Fit Test 1975 HIV Screening 1975 Hepatitis C Screening 1975 Sigmoidoscopy 1975 Hepatitis B Vaccines (1 of 3 - 19+ 3-dose series) 1994 Alcohol/Substance Use Screening 09/15/2024 Depression Screening and Follow-Up 09/15/2024 Social Drivers of Health [place] ual Screening 09/15/2024 Influenza Vaccine (#1) 2025 Pneumococcal Vaccine: 50+ Ye ars (1 of 1 - PCV) 2025 Zoster Vaccines (1 of 2) 2025 COVID-19 Vaccine (1 - 2024-2 6 season) 2025 DTaP,Tdap,and Td Vaccines (2 - Td or Tdap) 11/30/2031 11/29/2021 Colon Cancer Screening 08/15/2033 Colonoscopy 08/15/2033 08/15/2023, 09/2022, 08/15/2023 Abdominal Aortic Aneurysm (A AA) Screening Completed 11/22/2024, 06/14/2024, 03/08/2024, Additional history exists Medical Devices Implanted Type Area Brick Mason Device Identifier Shelf Expiration Date Model / Serial / Lot Graft Vascular Hemashield 8mm X 60cm - [id number] - [id number] Implanted:Qty: 1 on 05/07/2024 by Dayo Abdul MD at [facility] Graft N/A: Aorta [employer] [facility] 11/22/2027 [id number] / [id number] / System Closure And Repair Suture-Mediated Perclose Prostyle - [id number] - [id number] Implanted:Qty: 1 on 10/31/2022 by Dayo Abdul MD at [facility] Implant Right: Groin [employer] [id number] 07/15/2024 62930-25 / [id number] / [id number] System Closure And Repair Suture-Mediated Perclose Prostyle - [id number] - [id number] Implanted:Qty: 1 on 10/31/2022 by Dayo Abdul MD at [facility] Implant Right: Groin [employer] [id number] 07/15/2024 73571-21 / [id number] / [id number] Device Closure Vascular Plug 6fr Angio-Seal Vip - S0 - [id number] Implanted:Qty: 1 on 02/13/2023 by Dayo Abdul MD at [facility] Implant Right: Groin [employer] [id number] 10/15/2023 [id number] / [id number] / [id number] System Closure And Repair Suture-Mediated Perclose Prostyle - [id number] Implanted:Qty: 2 on 07/20/2023 by Santos Willis MD at [facility] Implant [employer] 03/14/2025 [id number] / / [id number] System Closure And Repair Suture-Mediated Perclose Prostyle - [id number] Implanted:Qty: 3 on 02/14/2024 by Santos Willis MD at [facility] Implant Right: Groin [employer] 10/15/2025 [id number] / / [id number] System Stent Vascular Self Expanding Over The Wire Sterile [employer] [id number] - S0 - [id number] Implanted:Qty: 1 on 10/31/2022 by Dayo Abdul MD at [facility] Stent N/A: Abdomen [employer] [id number] 12/06/2026 [id number] / [id number] / [id number] Stent Icast Covered [id number] - [id number] - [id number] Implanted:Qty: 1 on 10/31/2022 by Dayo Abdul MD at [facility] Stent N/A: Abdomen [employer] [facility] [id number] 07/18/2025 [id number] / [id number] / Stent Icast Covered 7mm X 22mm X 120cm - [id number] - [id number] Implanted:Qty: 1 on 07/20/2023 by Santos Willis MD at [facility] Stent [employer] [facility] 05/30/2026 [id number] / [id number] / Description:Implanted in SMA Graft Stent Vbx Balloon Expandable Endoprosthesis Reduced Profile [id number] 11mm Max Post-Dilation With Heparin Catheter [id number] [place] [employer] - [id number] - [id number] Implanted:Qty: 1 on 02/14/2024 by Santos Willis MD at [facility] Stent N/A: Arterial W L GORE 08/14/2026 [id number] / [id number] / Description:SMA Procedures * Due to [place] law, this organization might not be sharing negative HIV tests. Procedure Name Priority Date/Time Associated Diagnosis Comments CT ANGIOGRAM ABDOMEN PELVIS W CONTRAST Routine 11/22/2024 10:02 AM EDT Chronic mesenteric ischemia COLONOSCOPY 08/15/2023 from Last 3 Months or Most Recently Relevant to Health Maintenance Results * Due to [place] law, this organization might not be sharing [...] to obtain the completed interpretation. Workstation ID: [id number] Up-to-date CT equipment and radiation dose reduction [...] AND SOFT TISSUES: Unremarkable. Resulting Agency Comment [id number] Procedure Note Tam Horne MD - 11/22/2024 [...] possible to obtain thecompleted interpretation. Workstation ID: [id number] Up-to-date CT equipment and radiation dose reduction techniques wereemployed. CTDIvol: 1.2 - 10.4 mGy. DLP: 992 mGy-cm. us Dayo Abdul MD IMG CT PROCEDURES Final Resul t * COLONOSCOPY (08/15/2023) Narrative Procedure Note Anthony Thomas MD PhD - 08/15/2023 3:15 PM EST [facility] Gastroenterology Patient Name: Seth Hui Procedure Date: 08/15/2023 3:15 PM Date of : 1975 Admit Type: Inpatient Age: 48 Room: [place] [address] Gender: Male Note Status: Finalized Attending MD: [...] the physician, the nurse, theanesthetist and the dental technician instructor in the pre-procedure area in the procedure [...] Documents on File Type Date Recorded Patient Outside Sales Inspector Expl anation Health Care Proxy 07/24/2023 [...] Zeng Spouse Health Care Agent Care Teams Manager Talent Relationship Specialty Start Date End Date Ngoc Fung MD [address] [place] [address] PCP - General Internal Medicine 09/19/22
== END 2025-09-05 15:48 | disposition home or self-care (01) ==
LOC: HO.HMCC 15:01
PROVIDERS: PCP Internal Medicine; Visit Provider Internal Medicine
DX: Z00.01 Encounter for general adult medical examination with abnormal findings (principal); E78.5 Hyperlipidemia, unspecified; D50.9 Iron deficiency anemia, unspecified; E55.9 Vitamin D deficiency, unspecified; K80.10 Calculus of gallbladder with chronic cholecystitis without obstruction; R73.01 Impaired fasting glucose; I73.9 Peripheral vascular disease, unspecified; Z28.20 Immunization not carried out because of patient decision for unspecified reason

== ENCOUNTER → 2025-09-05 15:00 | Outpatient (BNVA) | payer MEDICARE, SELFPAY | PROVIDERS: PCP Internal Medicine; Visit Provider Internal Medicine | DX: Z00.01 Encounter for general adult medical examination with abnormal findings (principal); E55.9 Vitamin D deficiency, unspecified; E78.5 Hyperlipidemia, unspecified; R73.01 Impaired fasting glucose; D50.9 Iron deficiency anemia, unspecified; K80.10 Calculus of gallbladder with chronic cholecystitis without obstruction; I73.9 Peripheral vascular disease, unspecified; Z28.20 Immunization not carried out because of patient decision for unspecified reason; Z13.31 Encounter for screening for depression; Z13.39 Encounter for screening examination for other mental health and behavioral disorders | CPT/HCPCS: 96127; 99396 ==